=== PATIENT | female | born 1930 | race Caucasian/White ===

== ENCOUNTER 2016-09-13 11:12 | Inpatient (IN) | payer MEDICARE, OTHER ==
[~2016-09-13] VITALS: Ht 160 cm; Wt 55.9 kg
--- NOTE | 2016-09-13 11:19 | PHYS DOC ---
General Chief Complaint: medical clearance for [facility] Stated Complaint: [facility] EVAL Time Seen by MD: 11:15 Source: patient, prison records Exam Limitations: clinical condition Problems: History of Present Illness Initial Comments Patient is an 86-year-old female sent to the emergency department via EMS from [facility] for medical clearance and [facility] admission. [facility] records indicate the patient has been exit seeking, taking silverware, trying to break windows, attempting to strike staff, attempting to elope, and her anxiety symptoms have been increased. [facility] staff relays that the patient may have had a seizure earlier today, they say they witnessed tonic-clonic movements and patient does have seizure disorder history. Patient' s dementia symptoms have also worsened, prison records indicate these symptoms have been changing for the past 3 weeks. Seroquel and Ativan up and tried at the facility without relief. Patient is very confused in the department. She is disoriented and requires one- to-one care with repeated attempts to leave the department. Patient has a full DNR Timing/Duration: getting worse (3 weeks) Severity: severe Modifying Factors: improves with other Associated Symptoms: other Allergies: Coded Allergies: No Known Drug Allergies (Unverified , 09/13/16) Past Medical History Medical History: other (hypertension, allergies, insomnia, anxiety, dementia, seizure disorder, joint pain) Surgical History: noncontributory Social History Smoker: non-smoker Alcohol: none Drugs: none Review of Systems All Other Systems: Reviewed and Negative (patient is confused accurate review of systems is unobtainable.) Physical Exam General Appearance: mild distress (anxious and agitated) Eyes: bilateral eye normal inspection, bilateral eye PERRL, bilateral eye EOMI Ear, Nose, Throat: hearing grossly normal, normal ENT inspection Neck: non-tender, supple Respiratory: normal breath sounds, no respiratory distress Cardiovascular: normal peripheral pulses, regular rate, rhythm Gastrointestinal: non tender, soft Back: no CVA tenderness, no vertebral tenderness Extremities: non-tender, normal inspection 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 Interpreted by me. ED workup reassuring, lactic acid 5.0. Although elevated this value is expected immediately after seizure. Patient medically cleared for [facility] admission, Dr. Dixon is accepting. Departure Disposition: ADMITTED INPATIENT Diagnosis: dementia with behavior disorder, breakthrough seiz Condition: STABLE Additional Instructions: [facility] admission Dr Dixon is accepting DAMARIS UREÑA DO Sep 13, 2016 11:19
[2016-09-13 11:58] LABS: BASO % 0 % (0-3); EOS # 0.1 x10^3/uL (0.0-0.7); EOS % 2 % (0-3); HEMATOCRIT 33.8 % (36.0-47.0); HEMOGLOBIN 11.4 g/dL (12.0-15.5); LYMPH # 2.2 x10^3/uL (1.0-4.8); LYMPH % 37 % (24-48); MEAN CORPUSCULAR HEMOGLOBIN 31 pg (25-35); MEAN CORPUSCULAR HGB CONC 34 g/dL (31-37); MEAN CORPUSCULAR VOLUME 92 fL (79-100); MONO # 0.7 x10^3/uL (0.0-1.1); MONO % 11 % (0-9); NEUT # 2.9 x10^3uL (1.8-7.7); NEUT % 50 % (31-73); PLATELET COUNT 201 x10^3/uL (140-400); RED BLOOD COUNT 3.68 x10^6/uL (3.50-5.40); RED CELL DISTRIBUTION WIDTH 14.5 % (11.5-14.5); WHITE BLOOD COUNT 5.9 x10^3/uL (4.0-11.0)
[2016-09-13 12:09] LABS: ALBUMIN 3.5 g/dL (3.4-5.0); CALCIUM 8.7 mg/dL (8.5-10.1); GFR 52.7; MAGNESIUM 1.8 mg/dL (1.8-2.4); TOTAL BILIRUBIN 0.3 mg/dL (0.2-1.0)
[2016-09-13 12:17] LABS: PHENY 16.2 mcg/mL (10.0-20.0)
[2016-09-13 12:37] LABS: BACTERIA,URINE FEW /HPF (0-FEW); BILIRUBIN,URINE NEG (NEG); CLARITY,URINE CLOUDY; COLOR,URINE YELLOW; GLUCOSE,URINE NEG (NEG); NITRITE,URINE NEG (NEG); RBC,URINE 0 /HPF (0-2); SQUAMOUS EPITHELIAL CELL,UR FEW /LPF; UROBILINOGEN,URINE 0.2 mg/dL (0.2 mg/dL)
--- NOTE | 2016-09-13 12:49 | EKG ---
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
[2016-09-13 13:46] VITALS: BP 153/68
[2016-09-13] MEDS ORDERED: MAGNESIUM HYDROXIDE 2,400 MG/30 ML ORAL.SUSP. PO PRN (14:00)
[2016-09-13] MEDS ORDERED: MAG HYDROX/AL HYDROX/SIMETH 30 ML ORAL.SUSP PO PRN (14:00)
[2016-09-13] MEDS ORDERED: LORA0.5T PO (14:40)
[2016-09-13] MEDS ORDERED: METO25TA9 PO (14:40)
[2016-09-13] MEDS ORDERED: LORA10TA68 PO (14:40)
[2016-09-13] MEDS ORDERED: DICL100G18 TP (14:40)
[2016-09-13] MEDS ORDERED: ASPI-630 PO (14:40)
[2016-09-13] MEDS ORDERED: MELA3TAB45 PO (14:40)
[2016-09-13] MEDS ORDERED: PHEN100C PO (14:40)
[2016-09-13] MEDS ORDERED: [UNRECOGNIZED DRUG - CODE] PO (14:40)
[2016-09-13] MEDS ORDERED: LORA2ORA8 SL (14:43)
[2016-09-13] MEDS ORDERED: QUET25TA5 PO (14:43)
[2016-09-13 16:05] VITALS: BP 114/97
[2016-09-13] MEDS: LORazepam 0.5 MG TABLET PO SCH (20:04)
[2016-09-13] MEDS: LORazepam 0.5 MG TABLET PO PRN (20:06)
--- NOTE | 2016-09-13 20:10 | PDOC ---
Exam Dane Demential Exam: Dane Note: Please also refer to the separate dictated note~for this date of service dictated separately.~Patient seen individually. Discussed the patient with Nursing staff reviewed the chart.~Reviewed interim history and current functioning. Reviewed vital signs,~Labs/ Radiology~and current medications noted below. Continue current treatment with the changes noted in the dictated addendum note Assessment: Vital Signs: Vital Signs Date Time Temp Pulse Resp B/P (MAP) Pulse Ox O2 Delivery O2 Flow Rate FiO2 09/13/16 16:05 98.8 75 22 114/97 (103) 09/13/16 13:46 98 09/13/16 11:20 Room Air Labs: Laboratory Tests Test 09/13/16 11:35 09/13/16 12:10 White Blood Count 5.9 x10^3/uL (4.0-11.0) Red Blood Count 3.68 x10^6/uL (3.50-5.40) Hemoglobin 11.4 g/dL (12.0-15.5) L Hematocrit 33.8 % (36.0-47.0) L Mean Corpuscular Volume 92 fL (79-100) Mean Corpuscular Hemoglobin 31 pg (25-35) Mean Corpuscular Hemoglobin Concent 34 g/dL (31-37) Red Cell Distribution Width 14.5 % (11.5-14.5) Platelet Count 201 x10^3/uL (140-400) Neutrophils (%) (Auto) 50 % (31-73) Lymphocytes (%) (Auto) 37 % (24-48) Monocytes (%) (Auto) 11 % (0-9) H Eosinophils (%) (Auto) 2 % (0-3) Basophils (%) (Auto) 0 % (0-3) Neutrophils # (Auto) 2.9 x10^3uL (1.8-7.7) Lymphocytes # (Auto) 2.2 x10^3/uL (1.0-4.8) Monocytes # (Auto) 0.7 x10^3/uL (0.0-1.1) Eosinophils # (Auto) 0.1 x10^3/uL (0.0-0.7) Basophils # (Auto) 0.0 x10^3/uL (0.0-0.2) Sodium Level 144 mmol/L (136-145) Potassium Level 4.0 mmol/L (3.5-5.1) Chloride Level 107 mmol/L (98-107) Carbon Dioxide Level 27 mmol/L (21-32) Anion Gap 10 (6-14) Blood Urea Nitrogen 9 mg/dL (7-20) Creatinine 1.0 mg/dL (0.6-1.0) Estimated GFR (Cockcroft-Gault) 52.7 BUN/Creatinine Ratio 9 (6-20) Glucose Level 98 mg/dL (70-99) Lactic Acid Level 5.0 mmol/L (0.4-2.0) *H Calcium Level 8.7 mg/dL (8.5-10.1) Magnesium Level 1.8 mg/dL (1.8-2.4) Iron Level 95 ug/dL (50-170) Total Iron Binding Capacity 229 ug/dL (250-450) L Iron Saturation 41 % (15-34) H Total Bilirubin 0.3 mg/dL (0.2-1.0) Aspartate Amino Transferase (AST) 26 U/L (15-37) Alanine Aminotransferase (ALT) 28 U/L (14-59) Alkaline Phosphatase 142 U/L (46-116) H Creatine Kinase 122 U/L (26-192) Troponin I Quantitative < 0.017 ng/mL (0-0.055) Total Protein 7.0 g/dL (6.4-8.2) Albumin 3.5 g/dL (3.4-5.0) Albumin/Globulin Ratio 1.0 (1.0-1.7) Phenytoin (Dilantin) Level 16.2 mcg/mL (10.0-20.0) Phenytoin Last Dose Date 09/13/16 Phenytoin Last Dose Time 0700 Urine Collection Type Unknown Urine Color Yellow Urine Clarity Cloudy Urine pH 8.5 Urine Specific [place] 1.015 Urine Protein Neg (NEG-TRACE) Urine Glucose (UA) Neg mg/dL (NEG) Urine Ketones (Stick) Neg mg/dL (NEG) Urine Blood Neg (NEG) Urine Nitrite Neg (NEG) Urine Bilirubin Neg (NEG) Urine Urobilinogen Dipstick 0.2 mg/dL (0.2 mg/dL) Urine Leukocyte Esterase Mod (NEG) Urine RBC 0 /HPF (0-2) Urine WBC 1-4 /HPF (0-4) Urine Squamous Epithelial Cells Few /LPF Urine Bacteria Few /HPF (0-FEW) Current Medications: Meds: Current Medications Acetaminophen (Tylenol) 650 mg PRN Q6HRS PRN PO PAIN / TEMP; Start 09/13/16 at 13:00 Multi-Ingredient Ointment (Analgesic [place]) 1 beck PRN QID PRN TP MUSCLE PAIN; Start 09/13/16 at 14:00 Al Hydroxide/Mg Hydroxide (Mylanta Plus Xs) 15 ml PRN AFTMEALHC PRN PO DYSPEPSIA; Start 09/13/16 at 14:00 Magnesium Hydroxide (Milk Of Magnesia) 2,400 mg PRN QHS PRN PO CONSTIPATION; Start 09/13/16 at 14:00 Lorazepam (Ativan) 0.25 mg TID PO Last administered on 09/13/16 20:04; Start at 21:00 Lorazepam (Ativan) 0.5 mg PRN TID PRN PO ANXIETY / AGITATION Last administered on 09/13/16 20:06; Start 09/13/16 at 16:00 Phenytoin Sodium (Dilantin) 100 mg BID PO ; Start 09/13/16 at 21:00 Quetiapine Fumarate (SEROquel) 25 mg BID PO ; Start 09/13/16 at 21:00 Melatonin 3 mg HS PO ; Start 09/13/16 at 21:00 Aspirin (Children'S Aspirin) 81 mg DAILY PO ; Start 09/14/16 at 09:00 Diclofenac Sodium (Voltaren) 1 beck BID TP ; Start 09/13/16 at 21:00 Metoprolol Succinate (Toprol Xl) 25 mg BID PO ; Start 09/13/16 at 21:00 Glucosamine Sulfate (Glucosamine) 1,000 mg DAILY PO ; Start 09/14/16 at 09:00 Cetirizine HCl (ZyrTEC) 10 mg DAILY PO ; Start 09/14/16 at 09:00 Active Scripts Active Reported Seroquel (Quetiapine Fumarate) 25 Mg Tablet 25 Mg PO BID Lorazepam Intensol (Lorazepam) 2 Mg/1 Ml Oral.conc 0.25 Ml SL PRN TID PRN Voltaren (Diclofenac Sodium) 100 Gm Gel..gram. 1 Beck TP BID Lorazepam 0.5 Mg Tablet 0.25 Mg PO TID Melatin (Melatonin) 3 Mg Tablet 3 Mg PO QHS Metoprolol Succinate ( Xl ) (Metoprolol Succinate) 25 Mg Tab.er.24h 25 Mg PO BID Dilantin (Phenytoin Sodium Extended) 100 Mg Capsule 100 Mg PO BID Glucosamine Sulfate (Glucosamine Sulfate 2KCL) 1,000 Mg Tablet 1,000 Mg PO DAILY Aspirin 81 Mg Tab.chew 81 Mg PO DAILY Claritin (Loratadine) 10 Mg Tablet 10 Mg PO DAILY Diagnosis: Problems: (1) Dementia with behavioral disturbance (2) Anxiety disorder (3) Dementia in Alzheimer's disease with delusions (4) Dementia in Alzheimer's disease with depression (5) Dementia, vascular, with delusions (6) Dementia, vascular, with depression (7) Impulse control disorder NAKIA KO MD Sep 13, 2016 20:10
[2016-09-13] MEDS: PHENYTOIN SODIUM EXTENDED 100 MG CAPSULE PO SCH (21:14)
[2016-09-13] MEDS: QUEtiapine 25 MG TABLET. PO SCH (21:15)
[2016-09-13] MEDS: MELATONIN 3 MG TABLET PO SCH (21:15)
[2016-09-13] MEDS: METOPROLOL SUCC 24HR ER 25 MG TAB.ER.24H. PO SCH (21:15)
[2016-09-13] MEDS: DICLOFENAC SODIUM 1% TOPICAL GEL 100GM TUBE. TP SCH (21:16)
[2016-09-14 06:15] VITALS: BP 159/89
[2016-09-14] MEDS: GLUCOSAMINE 500 MG CAPSULE PO SCH (08:46)
[2016-09-14] MEDS: QUEtiapine 25 MG TABLET. PO SCH ×2 (08:46→20:02)
[2016-09-14] MEDS: ASPIRIN 81 MG TAB.CHEW PO SCH (08:46)
[2016-09-14] MEDS: PHENYTOIN SODIUM EXTENDED 100 MG CAPSULE PO SCH ×2 (08:46→20:02)
[2016-09-14] MEDS: LORazepam 0.5 MG TABLET PO SCH ×3 (08:46→20:03)
[2016-09-14] MEDS: CETIRIZINE HCL 10 MG TABLET PO SCH (08:47)
[2016-09-14] MEDS: METOPROLOL SUCC 24HR ER 25 MG TAB.ER.24H. PO SCH ×2 (08:47→20:02)
[2016-09-14] MEDS: DICLOFENAC SODIUM 1% TOPICAL GEL 100GM TUBE. TP SCH ×2 (08:48→20:02)
[2016-09-14] MEDS: LORazepam 0.5 MG TABLET PO PRN (10:54)
[2016-09-14 11:30] LABS: THYROID STIM HORMONE (TSH) 2.162 uIU/mL (0.358-3.740)
[2016-09-14 14:09] LABS: T3 TOTAL 93 ng/dL (71-180); THYROXINE 4.9 ug/dL (4.5-12.0)
--- NOTE | 2016-09-14 14:35 | PDOC1 ---
History of Present Illness Reason for Visit: Behaviors History of Present Illness Pt sent to [facility] for evaluation due to exit-seeking behaviors at [facility] in [place]. Pt reportedly has been grabbing silverware, attempting to break windows , swinging at staff, with increased anxiety and attempts to elope. She is a poor historian. When I interviewed her, she was trying to sell me a used chux pad for [place], so she could "break out of this place." She denies pain. 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 Allergies: Coded Allergies: No Known Drug Allergies (Unverified , 09/13/16) Medications Current Medications Acetaminophen (Tylenol) 650 mg PRN Q6HRS PRN PO PAIN / TEMP; Start 09/13/16 at 13:00 Multi-Ingredient Ointment (Analgesic [place]) 1 beck PRN QID PRN TP MUSCLE PAIN; Start 09/13/16 at 14:00 Al Hydroxide/Mg Hydroxide (Mylanta Plus Xs) 15 ml PRN AFTMEALHC PRN PO DYSPEPSIA; Start 09/13/16 at 14:00 Magnesium Hydroxide (Milk Of Magnesia) 2,400 mg PRN QHS PRN PO CONSTIPATION; Start 09/13/16 at 14:00 Lorazepam (Ativan) 0.25 mg TID PO Last administered on 09/14/16 14:03; Start at 21:00 Lorazepam (Ativan) 0.5 mg PRN TID PRN PO ANXIETY / AGITATION Last administered on 09/14/16 10:54; Start 09/13/16 at 16:00 Phenytoin Sodium (Dilantin) 100 mg BID PO Last administered on 09/14/16 08:46; Start 09/13/16 at 21:00 Quetiapine Fumarate (SEROquel) 25 mg BID PO Last administered on 09/14/16 08:46 ; Start 09/13/16 at 21:00 Melatonin 3 mg HS PO Last administered on 09/13/16 21:15; Start 09/13/16 at 21: 00 Aspirin (Children'S Aspirin) 81 mg DAILY PO Last administered on 09/14/16 08:46 ; Start 09/14/16 at 09:00 Diclofenac Sodium (Voltaren) 1 beck BID TP Last administered on 09/14/16 08:48; Start 09/13/16 at 21:00 Metoprolol Succinate (Toprol Xl) 25 mg BID PO Last administered on 09/14/16 08: 47; Start 09/13/16 at 21:00 Glucosamine Sulfate (Glucosamine) 1,000 mg DAILY PO Last administered on 08:46; Start 09/14/16 at 09:00 Cetirizine HCl (ZyrTEC) 10 mg DAILY PO Last administered on 09/14/16 08:47; Start 09/14/16 at 09:00 Olanzapine (ZyPREXA ZYDIS) 2.5 mg PRN Q4HRS PRN PO PSYCHOSIS Last administered on 09/14/16 14:15; Start 09/14/16 at 14:15 Active Scripts Active Reported Seroquel (Quetiapine Fumarate) 25 Mg Tablet 25 Mg PO BID Lorazepam Intensol (Lorazepam) 2 Mg/1 Ml Oral.conc 0.25 Ml SL PRN TID PRN Voltaren (Diclofenac Sodium) 100 Gm Gel..gram. 1 Beck TP BID Lorazepam 0.5 Mg Tablet 0.25 Mg PO TID Melatin (Melatonin) 3 Mg Tablet 3 Mg PO QHS Metoprolol Succinate ( Xl ) (Metoprolol Succinate) 25 Mg Tab.er.24h 25 Mg PO BID Dilantin (Phenytoin Sodium Extended) 100 Mg Capsule 100 Mg PO BID Glucosamine Sulfate (Glucosamine Sulfate 2KCL) 1,000 Mg Tablet 1,000 Mg PO DAILY Aspirin 81 Mg Tab.chew 81 Mg PO DAILY Claritin (Loratadine) 10 Mg Tablet 10 Mg PO DAILY Exam Vital Signs Vital Signs Date Time Temp Pulse Resp B/P (MAP) Pulse Ox O2 Delivery O2 Flow Rate FiO2 09/14/16 08:47 65 159/89 09/14/16 06:15 97.5 16 97 Room Air General Appearance: Alert, Cooperative, No acute distress HEENT: Atraumatic, PERRLA, EOMI, Mucous membr. moist/pink, Other (Neck supple, full ROM, no JVD) Respiratory: Clear to auscultation, Normal air movement Heart: Regular rate, Normal S1, Normal S2, No murmurs Cardiac: HTN Abdominal: Soft, No tenderness, No hepatospenomegaly Extremities: No edema, Normal pulses Skin: No rashes Neuro: Normal gait, Strength at 5/5 X4 ext, Normal tone, Cranial nerves 3-12 NL Psych/Mental Status: Other (Mental status stable) Assessment/Plan Assessment/Plan 1. Dementia w/ behaviors: Per Dr. Garcia. 2. Seizure d/o: Pt possibly w/ seizure yesterday lactate normal now. Monitor for seizures, consult neurology. Request records. 3. HTN: Continue home meds. 4. DVT proph: Pt completely ambulatory. No indication for anticoagulation. COURSE Allergies Coded Allergies Type Severity Reaction Last Updated Verified No Known Drug Allergies 09/13/16 No Current Medications Medications (Trade) Dose Ordered Sig/Antonina Route PRN Reason Start Time Stop Time Status Last Admin Dose Admin Lorazepam (Ativan) 0.25 mg TID PO 09/13/16 21:00 09/14/16 14:03 Lorazepam (Ativan) 0.5 mg PRN TID PRN PO ANXIETY / AGITATION 09/13/16 16:00 09/14/16 10:54 Phenytoin Sodium (Dilantin) 100 mg BID PO 09/13/16 21:00 09/14/16 08:46 Quetiapine Fumarate (SEROquel) 25 mg BID PO 09/13/16 21:00 09/14/16 08:46 Melatonin 3 mg HS PO 09/13/16 21:00 09/13/16 21:15 Aspirin (Children'S Aspirin) 81 mg DAILY PO 09/14/16 09:00 09/14/16 08:46 Diclofenac Sodium (Voltaren) 1 beck BID TP 09/13/16 21:00 09/14/16 08:48 Metoprolol Succinate (Toprol Xl) 25 mg BID PO 09/13/16 21:00 09/14/16 08:47 Glucosamine Sulfate (Glucosamine) 1,000 mg DAILY PO 09/14/16 09:00 09/14/16 08:46 Cetirizine HCl (ZyrTEC) 10 mg DAILY PO 09/14/16 09:00 09/14/16 08:47 Olanzapine (ZyPREXA ZYDIS) 2.5 mg PRN Q4HRS PRN PO PSYCHOSIS 09/14/16 14:15 09/14/16 14:15 I & O 09/14/16 00:00 Intake Total 120 ml Balance 120 ml Orders Procedure Category Date Status Time Lorazepam (Ativan) PHA 09/13/16 In Process 21:00 Phenytoin Sodium PHA 09/13/16 In Process Extended (Dilantin) 21:00 Quetiapine (Seroquel) PHA 09/13/16 In Process 21:00 Melatonin PHA 09/13/16 In Process 21:00 Lorazepam (Ativan) PHA 09/13/16 In Process 16:00 Aspirin (Children's PHA 09/14/16 In Process Aspirin) 09:00 Diclofenac Sodium 1% PHA 09/13/16 In Process Topical (Voltaren) 21:00 Metoprolol Succ 24hr PHA 09/13/16 In Process Er (Toprol Xl) 21:00 Glucosamine PHA 09/14/16 In Process (Glucosamine) 09:00 Cetirizine Hcl PHA 09/14/16 In Process (Zyrtec) 09:00 Olanzapine Zydis PHA 09/14/16 In Process (Zyprexa Zydis) 14:15 Vital Signs Date Time Temp Pulse Resp B/P (MAP) Pulse Ox O2 Delivery O2 Flow Rate FiO2 09/14/16 08:47 65 159/89 09/14/16 06:15 97.5 16 97 Room Air JACOB COKER MD Sep 14, 2016 14:35
[2016-09-14 15:56] VITALS: BP 163/94
[2016-09-14] MEDS: MELATONIN 3 MG TABLET PO SCH (20:02)
--- NOTE | 2016-09-14 23:23 | PDOC ---
Exam Dane Demential Exam: Dane Note: Please also refer to the separate dictated note~for this date of service dictated separately.~Patient seen individually. Discussed the patient with Nursing staff reviewed the chart.~Reviewed interim history and current functioning. Reviewed vital signs,~Labs/ Radiology~and current medications noted below. Continue current treatment with the changes noted in the dictated addendum note Assessment: Vital Signs: Vital Signs Date Time Temp Pulse Resp B/P (MAP) Pulse Ox O2 Delivery O2 Flow Rate FiO2 09/14/16 20:02 73 163/94 09/14/16 15:56 97.9 18 97 Room Air I&O Intake and Output 09/14/16 07:00 Intake Total 120 ml Balance 120 ml Intake Oral 120 ml Labs: Laboratory Tests Test 09/14/16 14:45 Lactic Acid Level 1.5 mmol/L (0.4-2.0) Current Medications: Meds: Current Medications Acetaminophen (Tylenol) 650 mg PRN Q6HRS PRN PO PAIN / TEMP; Start 09/13/16 at 13:00 Multi-Ingredient Ointment (Analgesic [place]) 1 beck PRN QID PRN TP MUSCLE PAIN; Start 09/13/16 at 14:00 Al Hydroxide/Mg Hydroxide (Mylanta Plus Xs) 15 ml PRN AFTMEALHC PRN PO DYSPEPSIA; Start 09/13/16 at 14:00 Magnesium Hydroxide (Milk Of Magnesia) 2,400 mg PRN QHS PRN PO CONSTIPATION; Start 09/13/16 at 14:00 Lorazepam (Ativan) 0.25 mg TID PO Last administered on 09/14/16 20:03; Start at 21:00 Lorazepam (Ativan) 0.5 mg PRN TID PRN PO ANXIETY / AGITATION Last administered on 09/14/16 10:54; Start 09/13/16 at 16:00 Phenytoin Sodium (Dilantin) 100 mg BID PO Last administered on 09/14/16 20:02; Start 09/13/16 at 21:00 Quetiapine Fumarate (SEROquel) 25 mg BID PO Last administered on 09/14/16 20:02 ; Start 09/13/16 at 21:00 Melatonin 3 mg HS PO Last administered on 09/14/16 20:02; Start 09/13/16 at 21: 00 Aspirin (Children'S Aspirin) 81 mg DAILY PO Last administered on 09/14/16 08:46 ; Start 09/14/16 at 09:00 Diclofenac Sodium (Voltaren) 1 beck BID TP Last administered on 09/14/16 20:02; Start 09/13/16 at 21:00 Metoprolol Succinate (Toprol Xl) 25 mg BID PO Last administered on 09/14/16 20: 02; Start 09/13/16 at 21:00 Glucosamine Sulfate (Glucosamine) 1,000 mg DAILY PO Last administered on 08:46; Start 09/14/16 at 09:00 Cetirizine HCl (ZyrTEC) 10 mg DAILY PO Last administered on 09/14/16 08:47; Start 09/14/16 at 09:00 Olanzapine (ZyPREXA ZYDIS) 2.5 mg PRN Q4HRS PRN PO PSYCHOSIS Last administered on 09/14/16 14:15; Start 09/14/16 at 14:15 Divalproex Sodium (Depakote Sprinkles) 250 mg HS PO ; Start 09/15/16 at 21:00 Divalproex Sodium (Depakote Sprinkles) 125 mg BID92 PO ; Start 09/15/16 at 09:00 Active Scripts Active Reported Seroquel (Quetiapine Fumarate) 25 Mg Tablet 25 Mg PO BID Lorazepam Intensol (Lorazepam) 2 Mg/1 Ml Oral.conc 0.25 Ml SL PRN TID PRN Voltaren (Diclofenac Sodium) 100 Gm Gel..gram. 1 Beck TP BID Lorazepam 0.5 Mg Tablet 0.25 Mg PO TID Melatin (Melatonin) 3 Mg Tablet 3 Mg PO QHS Metoprolol Succinate ( Xl ) (Metoprolol Succinate) 25 Mg Tab.er.24h 25 Mg PO BID Dilantin (Phenytoin Sodium Extended) 100 Mg Capsule 100 Mg PO BID Glucosamine Sulfate (Glucosamine Sulfate 2KCL) 1,000 Mg Tablet 1,000 Mg PO DAILY Aspirin 81 Mg Tab.chew 81 Mg PO DAILY Claritin (Loratadine) 10 Mg Tablet 10 Mg PO DAILY Diagnosis: Problems: (1) Dementia with behavioral disturbance (2) Anxiety disorder (3) Dementia in Alzheimer's disease with delusions (4) Dementia in Alzheimer's disease with depression (5) Dementia, vascular, with delusions (6) Dementia, vascular, with depression (7) Impulse control disorder NAKIA KO MD Sep 14, 2016 23:23
[2016-09-15 00:09] LABS: HEMOGLOBIN A1C 4.7 % (4.8-5.6)
[2016-09-15 06:28] VITALS: BP 152/74
[2016-09-15] MEDS: PHENYTOIN SODIUM EXTENDED 100 MG CAPSULE PO SCH ×2 (08:00→19:44)
[2016-09-15] MEDS: ASPIRIN 81 MG TAB.CHEW PO SCH (08:01)
[2016-09-15] MEDS: CETIRIZINE HCL 10 MG TABLET PO SCH (08:01)
[2016-09-15] MEDS: GLUCOSAMINE 500 MG CAPSULE PO SCH (08:01)
[2016-09-15] MEDS: METOPROLOL SUCC 24HR ER 25 MG TAB.ER.24H. PO SCH ×2 (08:02→19:44)
[2016-09-15] MEDS: QUEtiapine 25 MG TABLET. PO SCH ×2 (08:03→19:44)
[2016-09-15] MEDS: DIVALPROEX 125 MG CAP.SPRINK PO SCH ×3 (08:04→19:46)
[2016-09-15] MEDS: LORazepam 0.5 MG TABLET PO SCH ×3 (08:05→19:47)
[2016-09-15] MEDS: DICLOFENAC SODIUM 1% TOPICAL GEL 100GM TUBE. TP SCH ×2 (09:05→21:40)
[2016-09-15] MEDS: LORazepam 0.5 MG TABLET PO PRN (13:26)
[2016-09-15 16:48] VITALS: BP 136/74
[2016-09-15] MEDS: MELATONIN 3 MG TABLET PO SCH (19:44)
--- NOTE | 2016-09-15 20:19 | PDOC ---
Exam Dane Demential Exam: Dane Note: Please also refer to the separate dictated note~for this date of service dictated separately.~Patient seen individually. Discussed the patient with Nursing staff reviewed the chart.~Reviewed interim history and current functioning. Reviewed vital signs,~Labs/ Radiology~and current medications noted below. Continue current treatment with the changes noted in the dictated addendum note Assessment: Vital Signs: Vital Signs Date Time Temp Pulse Resp B/P (MAP) Pulse Ox O2 Delivery O2 Flow Rate FiO2 09/15/16 19:44 67 136/74 09/15/16 16:48 98.6 20 99 09/14/16 15:56 Room Air I&O Intake and Output 09/15/16 07:00 Intake Total 660 ml Balance 660 ml Intake Oral 660 ml Current Medications: Meds: Current Medications Acetaminophen (Tylenol) 650 mg PRN Q6HRS PRN PO PAIN / TEMP; Start 09/13/16 at 13:00 Multi-Ingredient Ointment (Analgesic [place]) 1 beck PRN QID PRN TP MUSCLE PAIN; Start 09/13/16 at 14:00 Al Hydroxide/Mg Hydroxide (Mylanta Plus Xs) 15 ml PRN AFTMEALHC PRN PO DYSPEPSIA; Start 09/13/16 at 14:00 Magnesium Hydroxide (Milk Of Magnesia) 2,400 mg PRN QHS PRN PO CONSTIPATION; Start 09/13/16 at 14:00 Lorazepam (Ativan) 0.25 mg TID PO Last administered on 09/15/16 19:47; Start at 21:00 Lorazepam (Ativan) 0.5 mg PRN TID PRN PO ANXIETY / AGITATION Last administered on 09/15/16 13:26; Start 09/13/16 at 16:00 Phenytoin Sodium (Dilantin) 100 mg BID PO Last administered on 09/15/16 19:44; Start 09/13/16 at 21:00 Quetiapine Fumarate (SEROquel) 25 mg BID PO Last administered on 09/15/16 19:44 ; Start 09/13/16 at 21:00 Melatonin 3 mg HS PO Last administered on 09/15/16 19:44; Start 09/13/16 at 21: 00 Aspirin (Children'S Aspirin) 81 mg DAILY PO Last administered on 09/15/16 08:01 ; Start 09/14/16 at 09:00 Diclofenac Sodium (Voltaren) 1 beck BID TP Last administered on 09/15/16 09:05; Start 09/13/16 at 21:00 Metoprolol Succinate (Toprol Xl) 25 mg BID PO Last administered on 09/15/16 19: 44; Start 09/13/16 at 21:00 Glucosamine Sulfate (Glucosamine) 1,000 mg DAILY PO Last administered on 08:01; Start 09/14/16 at 09:00 Cetirizine HCl (ZyrTEC) 10 mg DAILY PO Last administered on 09/15/16 08:01; Start 09/14/16 at 09:00 Olanzapine (ZyPREXA ZYDIS) 2.5 mg PRN Q4HRS PRN PO PSYCHOSIS Last administered on 09/15/16 12:01; Start 09/14/16 at 14:15 Divalproex Sodium (Depakote Sprinkles) 250 mg HS PO Last administered on 19:46; Start 09/15/16 at 21:00 Divalproex Sodium (Depakote Sprinkles) 125 mg BID92 PO Last administered on 09/15 14:00; Start 09/15/16 at 09:00 Active Scripts Active Reported Seroquel (Quetiapine Fumarate) 25 Mg Tablet 25 Mg PO BID Lorazepam Intensol (Lorazepam) 2 Mg/1 Ml Oral.conc 0.25 Ml SL PRN TID PRN Voltaren (Diclofenac Sodium) 100 Gm Gel..gram. 1 Beck TP BID Lorazepam 0.5 Mg Tablet 0.25 Mg PO TID Melatin (Melatonin) 3 Mg Tablet 3 Mg PO QHS Metoprolol Succinate ( Xl ) (Metoprolol Succinate) 25 Mg Tab.er.24h 25 Mg PO BID Dilantin (Phenytoin Sodium Extended) 100 Mg Capsule 100 Mg PO BID Glucosamine Sulfate (Glucosamine Sulfate 2KCL) 1,000 Mg Tablet 1,000 Mg PO DAILY Aspirin 81 Mg Tab.chew 81 Mg PO DAILY Claritin (Loratadine) 10 Mg Tablet 10 Mg PO DAILY Diagnosis: Problems: (1) Dementia with behavioral disturbance (2) Anxiety disorder (3) Dementia in Alzheimer's disease with delusions (4) Dementia in Alzheimer's disease with depression (5) Dementia, vascular, with delusions (6) Dementia, vascular, with depression (7) Impulse control disorder NAKIA KO MD Sep 15, 2016 20:19
[2016-09-16 05:57] VITALS: BP 148/72
[2016-09-16] MEDS: PHENYTOIN SODIUM EXTENDED 100 MG CAPSULE PO SCH ×2 (08:59→19:37)
[2016-09-16] MEDS: GLUCOSAMINE 500 MG CAPSULE PO SCH (08:59)
[2016-09-16] MEDS: ASPIRIN 81 MG TAB.CHEW PO SCH (09:00)
[2016-09-16] MEDS: DIVALPROEX 125 MG CAP.SPRINK PO SCH ×3 (09:00→19:36)
[2016-09-16] MEDS: CETIRIZINE HCL 10 MG TABLET PO SCH (09:00)
[2016-09-16] MEDS: METOPROLOL SUCC 24HR ER 25 MG TAB.ER.24H. PO SCH ×2 (09:00→19:36)
[2016-09-16] MEDS: QUEtiapine 25 MG TABLET. PO SCH (09:00)
[2016-09-16] MEDS: LORazepam 0.5 MG TABLET PO SCH ×3 (09:01→19:47)
[2016-09-16] MEDS: DICLOFENAC SODIUM 1% TOPICAL GEL 100GM TUBE. TP SCH ×2 (09:02→19:37)
[2016-09-16] MEDS: CHOLECALCIFEROL (VITAMIN D3) 50,000 UNIT CAPSULE PO SCH (13:26)
[2016-09-16 15:39] VITALS: BP 111/73
[2016-09-16] MEDS: MELATONIN 3 MG TABLET PO SCH (19:34)
--- NOTE | 2016-09-16 20:24 | PDOC ---
Exam Dane Demential Exam: Dane Note: Please also refer to the separate dictated note~for this date of service dictated separately.~Patient seen individually. Discussed the patient with Nursing staff reviewed the chart.~Reviewed interim history and current functioning. Reviewed vital signs,~Labs/ Radiology~and current medications noted below. Continue current treatment with the changes noted in the dictated addendum note Assessment: Vital Signs: Vital Signs Date Time Temp Pulse Resp B/P (MAP) Pulse Ox O2 Delivery O2 Flow Rate FiO2 09/16/16 19:36 78 111/73 09/16/16 15:39 97.8 20 98 09/14/16 15:56 Room Air I&O Intake and Output 09/16/16 07:00 Intake Total 720 ml Balance 720 ml Intake Oral 720 ml Current Medications: Meds: Current Medications Acetaminophen (Tylenol) 650 mg PRN Q6HRS PRN PO PAIN / TEMP; Start 09/13/16 at 13:00 Multi-Ingredient Ointment (Analgesic [place]) 1 beck PRN QID PRN TP MUSCLE PAIN; Start 09/13/16 at 14:00 Al Hydroxide/Mg Hydroxide (Mylanta Plus Xs) 15 ml PRN AFTMEALHC PRN PO DYSPEPSIA; Start 09/13/16 at 14:00 Magnesium Hydroxide (Milk Of Magnesia) 2,400 mg PRN QHS PRN PO CONSTIPATION; Start 09/13/16 at 14:00 Lorazepam (Ativan) 0.25 mg TID PO Last administered on 09/16/16 19:47; Start 09/13/16 at 21:00 Lorazepam (Ativan) 0.5 mg PRN TID PRN PO ANXIETY / AGITATION Last administered on 09/15/16 13:26; Start 09/13/16 at 16:00 Phenytoin Sodium (Dilantin) 100 mg BID PO Last administered on 09/16/16 19:37 ; Start 09/13/16 at 21:00 Quetiapine Fumarate (SEROquel) 25 mg BID PO Last administered on 09/16/16 09: 00; Start 09/13/16 at 21:00; Stop 09/16/16 at 18:14; Status DC Melatonin 3 mg HS PO Last administered on 09/16/16 19:34; Start 09/13/16 at 21: 00 Aspirin (Children'S Aspirin) 81 mg DAILY PO Last administered on 09/16/16 09: 00; Start 09/14/16 at 09:00 Diclofenac Sodium (Voltaren) 1 beck BID TP Last administered on 09/16/16 19:37 ; Start 09/13/16 at 21:00 Metoprolol Succinate (Toprol Xl) 25 mg BID PO Last administered on 09/16/16 19 :36; Start 09/13/16 at 21:00 Glucosamine Sulfate (Glucosamine) 1,000 mg DAILY PO Last administered on 08:59; Start 09/14/16 at 09:00 Cetirizine HCl (ZyrTEC) 10 mg DAILY PO Last administered on 09/16/16 09:00; Start 09/14/16 at 09:00 Olanzapine (ZyPREXA ZYDIS) 2.5 mg PRN Q4HRS PRN PO PSYCHOSIS Last administered on 09/16/16 19:39; Start 09/14/16 at 14:15 Divalproex Sodium (Depakote Sprinkles) 250 mg HS PO Last administered on 19:36; Start 09/15/16 at 21:00 Divalproex Sodium (Depakote Sprinkles) 125 mg BID92 PO Last administered on 13:28; Start 09/15/16 at 09:00 Vitamin D (Vitamin D3) 50,000 unit WEEKLY PO Last administered on 09/16/16 13: 26; Start 09/16/16 at 11:30 Quetiapine Fumarate (SEROquel) 25 mg BIDACBL PO Last administered on 09/16/16 19:38; Start 09/17/16 at 07:30 Quetiapine Fumarate (SEROquel) 12.5 mg NOON PO ; Start 09/17/16 at 12:00 Sertraline HCl (Zoloft) 25 mg DAILY PO ; Start 09/17/16 at 09:00; Stop 09/19/16 at 08:59 Sertraline HCl (Zoloft) 50 mg DAILY PO ; Start 09/19/16 at 09:00 Active Scripts Active Reported Seroquel (Quetiapine Fumarate) 25 Mg Tablet 25 Mg PO BID Lorazepam Intensol (Lorazepam) 2 Mg/1 Ml Oral.conc 0.25 Ml SL PRN TID PRN Voltaren (Diclofenac Sodium) 100 Gm Gel..gram. 1 Beck TP BID Lorazepam 0.5 Mg Tablet 0.25 Mg PO TID Melatin (Melatonin) 3 Mg Tablet 3 Mg PO QHS Metoprolol Succinate ( Xl ) (Metoprolol Succinate) 25 Mg Tab.er.24h 25 Mg PO BID Dilantin (Phenytoin Sodium Extended) 100 Mg Capsule 100 Mg PO BID Glucosamine Sulfate (Glucosamine Sulfate 2KCL) 1,000 Mg Tablet 1,000 Mg PO DAILY Aspirin 81 Mg Tab.chew 81 Mg PO DAILY Claritin (Loratadine) 10 Mg Tablet 10 Mg PO DAILY Diagnosis: Problems: (1) Dementia with behavioral disturbance (2) Anxiety disorder (3) Dementia in Alzheimer's disease with delusions (4) Dementia in Alzheimer's disease with depression (5) Dementia, vascular, with delusions (6) Dementia, vascular, with depression (7) Impulse control disorder NAKIA KO MD Sep 16, 2016 20:24
[2016-09-17 06:09] VITALS: BP 140/63
[2016-09-17] MEDS ORDERED: QUEtiapine 25 MG TABLET. PO SCH (07:30)
[2016-09-17] MEDS: METOPROLOL SUCC 24HR ER 25 MG TAB.ER.24H. PO SCH ×2 (08:09→19:36)
[2016-09-17] MEDS: SERTRALINE 25 MG TABLET. PO SCH (08:10)
[2016-09-17] MEDS: GLUCOSAMINE 500 MG CAPSULE PO SCH (08:10)
[2016-09-17] MEDS: QUEtiapine 25 MG TABLET. PO SCH ×3 (08:10→16:15)
[2016-09-17] MEDS: CETIRIZINE HCL 10 MG TABLET PO SCH (08:10)
[2016-09-17] MEDS: PHENYTOIN SODIUM EXTENDED 100 MG CAPSULE PO SCH ×2 (08:10→19:36)
[2016-09-17] MEDS: ASPIRIN 81 MG TAB.CHEW PO SCH (08:10)
[2016-09-17] MEDS: DIVALPROEX 125 MG CAP.SPRINK PO SCH ×3 (08:10→19:36)
[2016-09-17 08:11] LABS: ALBUMIN 3.6 g/dL (3.4-5.0); ALK PHOS 141 U/L (46-116); ALT (SGPT) 24 U/L (14-59); ANION GAP 8 (6-14); AST (SGOT) 21 U/L (15-37); BLOOD UREA NITROGEN 16 mg/dL (7-20); BUN/CREATININE RATIO 20 (6-20); CALCIUM 8.8 mg/dL (8.5-10.1); CARBON DIOXIDE 29 mmol/L (21-32); CHLORIDE 106 mmol/L (98-107); CREATININE 0.8 mg/dL (0.6-1.0); GFR 68.2; GLUCOSE 95 mg/dL (70-99); HEMATOCRIT 37.6 % (36.0-47.0); HEMOGLOBIN 12.4 g/dL (12.0-15.5); POTASSIUM 3.6 mmol/L (3.5-5.1); RED BLOOD COUNT 3.99 x10^6/uL (3.50-5.40); RED CELL DISTRIBUTION WIDTH 15.2 % (11.5-14.5); SODIUM 143 mmol/L (136-145); TOTAL BILIRUBIN 0.4 mg/dL (0.2-1.0); TOTAL PROTEIN 7.1 g/dL (6.4-8.2); WHITE BLOOD COUNT 5.4 x10^3/uL (4.0-11.0)
[2016-09-17] MEDS: LORazepam 0.5 MG TABLET PO SCH ×3 (08:11→19:35)
[2016-09-17 08:17] LABS: VAL ACID 27 mcg/mL (50-100)
[2016-09-17] MEDS: DICLOFENAC SODIUM 1% TOPICAL GEL 100GM TUBE. TP SCH ×2 (09:00→19:37)
[2016-09-17 16:02] VITALS: BP 116/79
[2016-09-17] MEDS: MELATONIN 3 MG TABLET PO SCH (19:38)
--- NOTE | 2016-09-17 20:17 | PDOC ---
Exam Dane Demential Exam: Dane Note: Please also refer to the separate dictated note~for this date of service dictated separately.~Patient seen individually. Discussed the patient with Nursing staff reviewed the chart.~Reviewed interim history and current functioning. Reviewed vital signs,~Labs/ Radiology~and current medications noted below. Continue current treatment with the changes noted in the dictated addendum note Assessment: Vital Signs: Vital Signs Date Time Temp Pulse Resp B/P (MAP) Pulse Ox O2 Delivery O2 Flow Rate FiO2 09/17/16 19:36 76 116/79 09/17/16 16:02 98.7 20 Room Air 09/17/16 06:09 96 I&O Intake and Output 09/17/16 07:00 Intake Total 780 ml Balance 780 ml Intake Oral 780 ml Labs: Laboratory Tests Test 09/17/16 07:43 White Blood Count 5.4 x10^3/uL (4.0-11.0) Red Blood Count 3.99 x10^6/uL (3.50-5.40) Hemoglobin 12.4 g/dL (12.0-15.5) Hematocrit 37.6 % (36.0-47.0) Mean Corpuscular Volume 94 fL (79-100) Mean Corpuscular Hemoglobin 31 pg (25-35) Mean Corpuscular Hemoglobin Concent 33 g/dL (31-37) Red Cell Distribution Width 15.2 % (11.5-14.5) H Platelet Count 225 x10^3/uL (140-400) Sodium Level 143 mmol/L (136-145) Potassium Level 3.6 mmol/L (3.5-5.1) Chloride Level 106 mmol/L (98-107) Carbon Dioxide Level 29 mmol/L (21-32) Anion Gap 8 (6-14) Blood Urea Nitrogen 16 mg/dL (7-20) Creatinine 0.8 mg/dL (0.6-1.0) Estimated GFR (Cockcroft-Gault) 68.2 BUN/Creatinine Ratio 20 (6-20) Glucose Level 95 mg/dL (70-99) Calcium Level 8.8 mg/dL (8.5-10.1) Total Bilirubin 0.4 mg/dL (0.2-1.0) Aspartate Amino Transferase (AST) 21 U/L (15-37) Alanine Aminotransferase (ALT) 24 U/L (14-59) Alkaline Phosphatase 141 U/L (46-116) H Total Protein 7.1 g/dL (6.4-8.2) Albumin 3.6 g/dL (3.4-5.0) Albumin/Globulin Ratio 1.0 (1.0-1.7) Valproic Acid Level 27 mcg/mL (50-100) L Valproic Acid Last Dose Date 09/16/2016 Valproic Acid Last Dose Time 2100 Current Medications: Meds: Current Medications Acetaminophen (Tylenol) 650 mg PRN Q6HRS PRN PO PAIN / TEMP; Start 09/13/16 at 13:00 Multi-Ingredient Ointment (Analgesic [place]) 1 beck PRN QID PRN TP MUSCLE PAIN; Start 09/13/16 at 14:00 Al Hydroxide/Mg Hydroxide (Mylanta Plus Xs) 15 ml PRN AFTMEALHC PRN PO DYSPEPSIA; Start 09/13/16 at 14:00 Magnesium Hydroxide (Milk Of Magnesia) 2,400 mg PRN QHS PRN PO CONSTIPATION; Start 09/13/16 at 14:00 Lorazepam (Ativan) 0.25 mg TID PO Last administered on 09/17/16 19:35; Start 09/13/16 at 21:00 Lorazepam (Ativan) 0.5 mg PRN TID PRN PO ANXIETY / AGITATION Last administered on 09/15/16 13:26; Start 09/13/16 at 16:00 Phenytoin Sodium (Dilantin) 100 mg BID PO Last administered on 09/17/16 19:36 ; Start 09/13/16 at 21:00 Quetiapine Fumarate (SEROquel) 25 mg BID PO Last administered on 09/16/16 09: 00; Start 09/13/16 at 21:00; Stop 09/16/16 at 18:14; Status DC Melatonin 3 mg HS PO Last administered on 09/17/16 19:38; Start 09/13/16 at 21: 00 Aspirin (Children'S Aspirin) 81 mg DAILY PO Last administered on 09/17/16 08: 10; Start 09/14/16 at 09:00 Diclofenac Sodium (Voltaren) 1 beck BID TP Last administered on 09/17/16 19:37 ; Start 09/13/16 at 21:00 Metoprolol Succinate (Toprol Xl) 25 mg BID PO Last administered on 09/17/16 19 :36; Start 09/13/16 at 21:00 Glucosamine Sulfate (Glucosamine) 1,000 mg DAILY PO Last administered on 08:10; Start 09/14/16 at 09:00 Cetirizine HCl (ZyrTEC) 10 mg DAILY PO Last administered on 09/17/16 08:10; Start 09/14/16 at 09:00 Olanzapine (ZyPREXA ZYDIS) 2.5 mg PRN Q4HRS PRN PO PSYCHOSIS Last administered on 09/17/16 17:51; Start 09/14/16 at 14:15 Divalproex Sodium (Depakote Sprinkles) 250 mg HS PO Last administered on 19:36; Start 09/15/16 at 21:00 Divalproex Sodium (Depakote Sprinkles) 125 mg BID92 PO Last administered on 14:13; Start 09/15/16 at 09:00 Vitamin D (Vitamin D3) 50,000 unit WEEKLY PO Last administered on 09/16/16 13: 26; Start 09/16/16 at 11:30 Quetiapine Fumarate (SEROquel) 25 mg BIDACBL PO ; Start 09/17/16 at 07:30; Stop 09/17/16 at 07:30; Status DC Quetiapine Fumarate (SEROquel) 12.5 mg NOON PO Last administered on 09/17/16 11:41; Start 09/17/16 at 12:00 Sertraline HCl (Zoloft) 25 mg DAILY PO Last administered on 09/17/16 08:10; Start 09/17/16 at 09:00; Stop 09/19/16 at 08:59 Sertraline HCl (Zoloft) 50 mg DAILY PO ; Start 09/19/16 at 09:00 Quetiapine Fumarate (SEROquel) 25 mg BID94 PO Last administered on 09/17/16 16 :15; Start 09/17/16 at 09:00 Active Scripts Active Reported Seroquel (Quetiapine Fumarate) 25 Mg Tablet 25 Mg PO BID Lorazepam Intensol (Lorazepam) 2 Mg/1 Ml Oral.conc 0.25 Ml SL PRN TID PRN Voltaren (Diclofenac Sodium) 100 Gm Gel..gram. 1 Beck TP BID Lorazepam 0.5 Mg Tablet 0.25 Mg PO TID Melatin (Melatonin) 3 Mg Tablet 3 Mg PO QHS Metoprolol Succinate ( Xl ) (Metoprolol Succinate) 25 Mg Tab.er.24h 25 Mg PO BID Dilantin (Phenytoin Sodium Extended) 100 Mg Capsule 100 Mg PO BID Glucosamine Sulfate (Glucosamine Sulfate 2KCL) 1,000 Mg Tablet 1,000 Mg PO DAILY Aspirin 81 Mg Tab.chew 81 Mg PO DAILY Claritin (Loratadine) 10 Mg Tablet 10 Mg PO DAILY Diagnosis: Problems: (1) Dementia with behavioral disturbance (2) Anxiety disorder (3) Dementia in Alzheimer's disease with delusions (4) Dementia in Alzheimer's disease with depression (5) Dementia, vascular, with delusions (6) Dementia, vascular, with depression (7) Impulse control disorder NAKIA KO MD Sep 17, 2016 20:17
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
[2016-09-18 05:56] VITALS: BP 156/64
[2016-09-18] MEDS: CETIRIZINE HCL 10 MG TABLET PO SCH (08:03)
[2016-09-18] MEDS: DIVALPROEX 125 MG CAP.SPRINK PO SCH ×3 (08:04→19:32)
[2016-09-18] MEDS: GLUCOSAMINE 500 MG CAPSULE PO SCH (08:04)
[2016-09-18] MEDS: ASPIRIN 81 MG TAB.CHEW PO SCH (08:05)
[2016-09-18] MEDS: METOPROLOL SUCC 24HR ER 25 MG TAB.ER.24H. PO SCH ×2 (08:05→19:31)
[2016-09-18] MEDS: SERTRALINE 25 MG TABLET. PO SCH (08:06)
[2016-09-18] MEDS: PHENYTOIN SODIUM EXTENDED 100 MG CAPSULE PO SCH ×2 (08:06→19:32)
[2016-09-18] MEDS: LORazepam 0.5 MG TABLET PO SCH ×3 (08:27→19:31)
[2016-09-18] MEDS: QUEtiapine 25 MG TABLET. PO SCH ×4 (08:29→19:31)
[2016-09-18] MEDS: DICLOFENAC SODIUM 1% TOPICAL GEL 100GM TUBE. TP SCH ×3 (08:29→19:33)
[2016-09-18] MEDS: LORazepam 0.5 MG TABLET PO PRN (11:24)
[2016-09-18 16:12] VITALS: BP 162/82
[2016-09-18] MEDS: MELATONIN 3 MG TABLET PO SCH (19:29)
--- NOTE | 2016-09-18 19:55 | PDOC ---
Exam Dane Demential Exam: Dane Note: Please also refer to the separate dictated note~for this date of service dictated separately.~Patient seen individually. Discussed the patient with Nursing staff reviewed the chart.~Reviewed interim history and current functioning. Reviewed vital signs,~Labs/ Radiology~and current medications noted below. Continue current treatment with the changes noted in the dictated addendum note Assessment: Vital Signs: Vital Signs Date Time Temp Pulse Resp B/P (MAP) Pulse Ox O2 Delivery O2 Flow Rate FiO2 09/18/16 19:31 81 162/82 09/18/16 16:12 97.9 20 97 Room Air I&O Intake and Output 09/18/16 07:00 Intake Total 360 ml Balance 360 ml Intake Oral 360 ml Current Medications: Meds: Current Medications Acetaminophen (Tylenol) 650 mg PRN Q6HRS PRN PO PAIN / TEMP; Start 09/13/16 at 13:00 Multi-Ingredient Ointment (Analgesic [place]) 1 bcek PRN QID PRN TP MUSCLE PAIN; Start 09/13/16 at 14:00 Al Hydroxide/Mg Hydroxide (Mylanta Plus Xs) 15 ml PRN AFTMEALHC PRN PO DYSPEPSIA; Start 09/13/16 at 14:00 Magnesium Hydroxide (Milk Of Magnesia) 2,400 mg PRN QHS PRN PO CONSTIPATION; Start 09/13/16 at 14:00 Lorazepam (Ativan) 0.25 mg TID PO Last administered on 09/17/16 19:35; Start 09/13/16 at 21:00; Stop 09/17/16 at 22:21; Status DC Lorazepam (Ativan) 0.5 mg PRN TID PRN PO ANXIETY / AGITATION Last administered on 09/18/16 11:24; Start 09/13/16 at 16:00 Phenytoin Sodium (Dilantin) 100 mg BID PO Last administered on 09/18/16 19:32 ; Start 09/13/16 at 21:00 Quetiapine Fumarate (SEROquel) 25 mg BID PO Last administered on 09/16/16 09: 00; Start 09/13/16 at 21:00; Stop 09/16/16 at 18:14; Status DC Melatonin 3 mg HS PO Last administered on 09/18/16 19:29; Start 09/13/16 at 21: 00 Aspirin (Children'S Aspirin) 81 mg DAILY PO Last administered on 09/18/16 08: 05; Start 09/14/16 at 09:00 Diclofenac Sodium (Voltaren) 1 beck BID TP Last administered on 09/18/16 19:33 ; Start 09/13/16 at 21:00 Metoprolol Succinate (Toprol Xl) 25 mg BID PO Last administered on 09/18/16 19 :31; Start 09/13/16 at 21:00 Glucosamine Sulfate (Glucosamine) 1,000 mg DAILY PO Last administered on 08:04; Start 09/14/16 at 09:00 Cetirizine HCl (ZyrTEC) 10 mg DAILY PO Last administered on 09/18/16 08:03; Start 09/14/16 at 09:00 Olanzapine (ZyPREXA ZYDIS) 2.5 mg PRN Q4HRS PRN PO PSYCHOSIS Last administered on 09/18/16 19:33; Start 09/14/16 at 14:15 Divalproex Sodium (Depakote Sprinkles) 250 mg HS PO Last administered on 19:32; Start 09/15/16 at 21:00 Divalproex Sodium (Depakote Sprinkles) 125 mg BID92 PO Last administered on 14:14; Start 09/15/16 at 09:00 Vitamin D (Vitamin D3) 50,000 unit WEEKLY PO Last administered on 09/16/16 13: 26; Start 09/16/16 at 11:30 Quetiapine Fumarate (SEROquel) 25 mg BIDACBL PO ; Start 09/17/16 at 07:30; Stop 09/17/16 at 07:30; Status DC Quetiapine Fumarate (SEROquel) 12.5 mg NOON PO Last administered on 09/18/16 11:24; Start 09/17/16 at 12:00 Sertraline HCl (Zoloft) 25 mg DAILY PO Last administered on 09/18/16 08:06; Start 09/17/16 at 09:00; Stop 09/19/16 at 08:59 Sertraline HCl (Zoloft) 50 mg DAILY PO ; Start 09/19/16 at 09:00 Quetiapine Fumarate (SEROquel) 25 mg BID94 PO Last administered on 09/17/16 16 :15; Start 09/17/16 at 09:00; Stop 09/17/16 at 22:21; Status DC Lorazepam (Ativan) 0.125 mg TID PO Last administered on 09/18/16 19:31; Start 09/18/16 at 09:00 Quetiapine Fumarate (SEROquel) 25 mg TID PO Last administered on 09/18/16 19: 31; Start 09/18/16 at 09:00 Active Scripts Active Reported Seroquel (Quetiapine Fumarate) 25 Mg Tablet 25 Mg PO BID Lorazepam Intensol (Lorazepam) 2 Mg/1 Ml Oral.conc 0.25 Ml SL PRN TID PRN Voltaren (Diclofenac Sodium) 100 Gm Gel..gram. 1 Beck TP BID Lorazepam 0.5 Mg Tablet 0.25 Mg PO TID Melatin (Melatonin) 3 Mg Tablet 3 Mg PO QHS Metoprolol Succinate ( Xl ) (Metoprolol Succinate) 25 Mg Tab.er.24h 25 Mg PO BID Dilantin (Phenytoin Sodium Extended) 100 Mg Capsule 100 Mg PO BID Glucosamine Sulfate (Glucosamine Sulfate 2KCL) 1,000 Mg Tablet 1,000 Mg PO DAILY Aspirin 81 Mg Tab.chew 81 Mg PO DAILY Claritin (Loratadine) 10 Mg Tablet 10 Mg PO DAILY Diagnosis: Problems: (1) Dementia with behavioral disturbance (2) Anxiety disorder (3) Dementia in Alzheimer's disease with delusions (4) Dementia in Alzheimer's disease with depression (5) Dementia, vascular, with delusions (6) Dementia, vascular, with depression (7) Impulse control disorder NAKIA KO MD Sep 18, 2016 19:55
--- NOTE | 2016-09-18 20:23 | PDOC ---
Exam Dane Demential Exam: Dane Note: Please also refer to the separate dictated note~for this date of service dictated separately.~Patient seen individually. Discussed the patient with Nursing staff reviewed the chart.~Reviewed interim history and current functioning. Reviewed vital signs,~Labs/ Radiology~and current medications noted below. Continue current treatment with the changes noted in the dictated addendum note S/O: This is a late entry for date of service 09/14/2016 and covers elements not covered in my initial note of 09/14. I met with the patient on the evening of 09/14. I had been called by the nursing staff as an emergency earlier in the day as the patient is quite agitated, aggressive. We added Zyprexa p.r.n. since Ativan was ineffective and she has done better with the agitation, psychotic symptoms since then. No CV, , Pulmonary, Eye, ENT system symptoms on review. Reliability poor. MSE: Oriented to herself. Insight and judgment, recent and remote memory, attention and concentration, fund of knowledge poor consistent with her diagnosis. No overt psychotic symptoms, suicidal or homicidal ideation noted mentioned in my initial note. Imp: Major neurocognitive disorder; Alzheimer vascular with depression, delusion, behavioral disturbance; anxiety disorder, unspecified; impulse control disorder, unspecified. Plan: Continue psychotropics mentioned in my initial note along with Zyprexa p.r.n. Start low dose Depakote Sprinkles 125 mg twice a day. Follow labs level. Adjust further as clinically indicated. Assessment: Vital Signs: Vital Signs Date Time Temp Pulse Resp B/P (MAP) Pulse Ox O2 Delivery O2 Flow Rate FiO2 09/18/16 19:31 81 162/82 09/18/16 16:12 97.9 20 97 Room Air I&O Intake and Output 09/18/16 07:00 Intake Total 360 ml Balance 360 ml Intake Oral 360 ml Current Medications: Meds: Current Medications Acetaminophen (Tylenol) 650 mg PRN Q6HRS PRN PO PAIN / TEMP; Start 09/13/16 at 13:00 Multi-Ingredient Ointment (Analgesic [place]) 1 beck PRN QID PRN TP MUSCLE PAIN; Start 09/13/16 at 14:00 Al Hydroxide/Mg Hydroxide (Mylanta Plus Xs) 15 ml PRN AFTMEALHC PRN PO DYSPEPSIA; Start 09/13/16 at 14:00 Magnesium Hydroxide (Milk Of Magnesia) 2,400 mg PRN QHS PRN PO CONSTIPATION; Start 09/13/16 at 14:00 Lorazepam (Ativan) 0.25 mg TID PO Last administered on 09/17/16 19:35; Start 09/13/16 at 21:00; Stop 09/17/16 at 22:21; Status DC Lorazepam (Ativan) 0.5 mg PRN TID PRN PO ANXIETY / AGITATION Last administered on 09/18/16 11:24; Start 09/13/16 at 16:00 Phenytoin Sodium (Dilantin) 100 mg BID PO Last administered on 09/18/16 19:32 ; Start 09/13/16 at 21:00 Quetiapine Fumarate (SEROquel) 25 mg BID PO Last administered on 09/16/16 09: 00; Start 09/13/16 at 21:00; Stop 09/16/16 at 18:14; Status DC Melatonin 3 mg HS PO Last administered on 09/18/16 19:29; Start 09/13/16 at 21: 00 Aspirin (Children'S Aspirin) 81 mg DAILY PO Last administered on 09/18/16 08: 05; Start 09/14/16 at 09:00 Diclofenac Sodium (Voltaren) 1 beck BID TP Last administered on 09/18/16 19:33 ; Start 09/13/16 at 21:00 Metoprolol Succinate (Toprol Xl) 25 mg BID PO Last administered on 09/18/16 19 :31; Start 09/13/16 at 21:00 Glucosamine Sulfate (Glucosamine) 1,000 mg DAILY PO Last administered on 08:04; Start 09/14/16 at 09:00 Cetirizine HCl (ZyrTEC) 10 mg DAILY PO Last administered on 09/18/16 08:03; Start 09/14/16 at 09:00 Olanzapine (ZyPREXA ZYDIS) 2.5 mg PRN Q4HRS PRN PO PSYCHOSIS Last administered on 09/18/16 19:33; Start 09/14/16 at 14:15 Divalproex Sodium (Depakote Sprinkles) 250 mg HS PO Last administered on 19:32; Start 09/15/16 at 21:00 Divalproex Sodium (Depakote Sprinkles) 125 mg BID92 PO Last administered on 14:14; Start 09/15/16 at 09:00 Vitamin D (Vitamin D3) 50,000 unit WEEKLY PO Last administered on 09/16/16 13: 26; Start 09/16/16 at 11:30 Quetiapine Fumarate (SEROquel) 25 mg BIDACBL PO ; Start 09/17/16 at 07:30; Stop 09/17/16 at 07:30; Status DC Quetiapine Fumarate (SEROquel) 12.5 mg NOON PO Last administered on 09/18/16 11:24; Start 09/17/16 at 12:00 Sertraline HCl (Zoloft) 25 mg DAILY PO Last administered on 09/18/16 08:06; Start 09/17/16 at 09:00; Stop 09/19/16 at 08:59 Sertraline HCl (Zoloft) 50 mg DAILY PO ; Start 09/19/16 at 09:00 Quetiapine Fumarate (SEROquel) 25 mg BID94 PO Last administered on 09/17/16 16 :15; Start 09/17/16 at 09:00; Stop 09/17/16 at 22:21; Status DC Lorazepam (Ativan) 0.125 mg TID PO Last administered on 09/18/16 19:31; Start 09/18/16 at 09:00 Quetiapine Fumarate (SEROquel) 25 mg TID PO Last administered on 09/18/16 19: 31; Start 09/18/16 at 09:00 Active Scripts Active Reported Seroquel (Quetiapine Fumarate) 25 Mg Tablet 25 Mg PO BID Lorazepam Intensol (Lorazepam) 2 Mg/1 Ml Oral.conc 0.25 Ml SL PRN TID PRN Voltaren (Diclofenac Sodium) 100 Gm Gel..gram. 1 Beck TP BID Lorazepam 0.5 Mg Tablet 0.25 Mg PO TID Melatin (Melatonin) 3 Mg Tablet 3 Mg PO QHS Metoprolol Succinate ( Xl ) (Metoprolol Succinate) 25 Mg Tab.er.24h 25 Mg PO BID Dilantin (Phenytoin Sodium Extended) 100 Mg Capsule 100 Mg PO BID Glucosamine Sulfate (Glucosamine Sulfate 2KCL) 1,000 Mg Tablet 1,000 Mg PO DAILY Aspirin 81 Mg Tab.chew 81 Mg PO DAILY Claritin (Loratadine) 10 Mg Tablet 10 Mg PO DAILY NAKIA KO MD Sep 18, 2016 20:23
--- NOTE | 2016-09-18 20:58 | PDOC ---
Exam Dane Demential Exam: Dane Note: Please also refer to the separate dictated note~for this date of service dictated separately.~Patient seen individually. Discussed the patient with Nursing staff reviewed the chart.~Reviewed interim history and current functioning. Reviewed vital signs,~Labs/ Radiology~and current medications noted below. Continue current treatment with the changes noted in the dictated addendum note S/O: This is a late entry for date of service 09/15/2016 and covers elements not covered in my initial note. Nursing staff had called me as an emergency earlier in the day as the patient is quite agitated, aggressive, labile in her mood, disruptive despite p.r.n. Ativan. We added Zyprexa p.r.n. that seemed to help. Review of Systems: No CV, , Pulmonary, Eye, ENT system symptoms on review. Reliability is poor. MSE: Oriented to herself. Insight, judgment, recent and remote memory, attention, concentration, fund of knowledge are poor consistent with her diagnosis mentioned in my initial note. Plan: Continue psychotropics mentioned in my initial note. Check labs level on the and adjust further as clinically indicated for the Depakote. Assessment: Vital Signs: Vital Signs Date Time Temp Pulse Resp B/P (MAP) Pulse Ox O2 Delivery O2 Flow Rate FiO2 09/18/16 19:31 81 162/82 09/18/16 16:12 97.9 20 97 Room Air I&O Intake and Output 09/18/16 07:00 Intake Total 360 ml Balance 360 ml Intake Oral 360 ml Current Medications: Meds: Current Medications Acetaminophen (Tylenol) 650 mg PRN Q6HRS PRN PO PAIN / TEMP; Start 09/13/16 at 13:00 Multi-Ingredient Ointment (Analgesic [place]) 1 beck PRN QID PRN TP MUSCLE PAIN; Start 09/13/16 at 14:00 Al Hydroxide/Mg Hydroxide (Mylanta Plus Xs) 15 ml PRN AFTMEALHC PRN PO DYSPEPSIA; Start 09/13/16 at 14:00 Magnesium Hydroxide (Milk Of Magnesia) 2,400 mg PRN QHS PRN PO CONSTIPATION; Start 09/13/16 at 14:00 Lorazepam (Ativan) 0.25 mg TID PO Last administered on 09/17/16t 19:35; Start 09/13/16 at 21:00; Stop 09/17/16 at 22:21; Status DC Lorazepam (Ativan) 0.5 mg PRN TID PRN PO ANXIETY / AGITATION Last administered on 09/18/16 11:24; Start 09/13/16 at 16:00 Phenytoin Sodium (Dilantin) 100 mg BID PO Last administered on 09/18/16 19:32 ; Start 09/13/16 at 21:00 Quetiapine Fumarate (SEROquel) 25 mg BID PO Last administered on 09/16/16 09: 00; Start 09/13/16 at 21:00; Stop 09/16/16 at 18:14; Status DC Melatonin 3 mg HS PO Last administered on 09/18/16 19:29; Start 09/13/16 at 21: 00 Aspirin (Children'S Aspirin) 81 mg DAILY PO Last administered on 09/18/16 08: 05; Start 09/14/16 at 09:00 Diclofenac Sodium (Voltaren) 1 beck BID TP Last administered on 09/18/16 19:33 ; Start 09/13/16 at 21:00 Metoprolol Succinate (Toprol Xl) 25 mg BID PO Last administered on 09/18/16 19 :31; Start 09/13/16 at 21:00 Glucosamine Sulfate (Glucosamine) 1,000 mg DAILY PO Last administered on 08:04; Start 09/14/16 at 09:00 Cetirizine HCl (ZyrTEC) 10 mg DAILY PO Last administered on 09/18/16 08:03; Start 09/14/16 at 09:00 Olanzapine (ZyPREXA ZYDIS) 2.5 mg PRN Q4HRS PRN PO PSYCHOSIS Last administered on 09/18/16 19:33; Start 09/14/16 at 14:15 Divalproex Sodium (Depakote Sprinkles) 250 mg HS PO Last administered on 19:32; Start 09/15/16 at 21:00 Divalproex Sodium (Depakote Sprinkles) 125 mg BID92 PO Last administered on 14:14; Start 09/15/16 at 09:00 Vitamin D (Vitamin D3) 50,000 unit WEEKLY PO Last administered on 09/16/16 13: 26; Start 09/16/16 at 11:30 Quetiapine Fumarate (SEROquel) 25 mg BIDACBL PO ; Start 09/17/16 at 07:30; Stop 09/17/16 at 07:30; Status DC Quetiapine Fumarate (SEROquel) 12.5 mg NOON PO Last administered on 09/18/16 11:24; Start 09/17/16 at 12:00 Sertraline HCl (Zoloft) 25 mg DAILY PO Last administered on 09/18/16 08:06; Start 09/17/16 at 09:00; Stop 09/19/16 at 08:59 Sertraline HCl (Zoloft) 50 mg DAILY PO ; Start 09/19/16 at 09:00 Quetiapine Fumarate (SEROquel) 25 mg BID94 PO Last administered on 09/17/16 16 :15; Start 09/17/16 at 09:00; Stop 09/17/16 at 22:21; Status DC Lorazepam (Ativan) 0.125 mg TID PO Last administered on 09/18/16 19:31; Start 09/18/16 at 09:00 Quetiapine Fumarate (SEROquel) 25 mg TID PO Last administered on 09/18/16 19: 31; Start 09/18/16 at 09:00 Active Scripts Active Reported Seroquel (Quetiapine Fumarate) 25 Mg Tablet 25 Mg PO BID Lorazepam Intensol (Lorazepam) 2 Mg/1 Ml Oral.conc 0.25 Ml SL PRN TID PRN Voltaren (Diclofenac Sodium) 100 Gm Gel..gram. 1 Beck TP BID Lorazepam 0.5 Mg Tablet 0.25 Mg PO TID Melatin (Melatonin) 3 Mg Tablet 3 Mg PO QHS Metoprolol Succinate ( Xl ) (Metoprolol Succinate) 25 Mg Tab.er.24h 25 Mg PO BID Dilantin (Phenytoin Sodium Extended) 100 Mg Capsule 100 Mg PO BID Glucosamine Sulfate (Glucosamine Sulfate 2KCL) 1,000 Mg Tablet 1,000 Mg PO DAILY Aspirin 81 Mg Tab.chew 81 Mg PO DAILY Claritin (Loratadine) 10 Mg Tablet 10 Mg PO DAILY NAKIA KO MD Sep 18, 2016 20:58
[2016-09-19 05:59] VITALS: BP 135/69
[2016-09-19] MEDS: DICLOFENAC SODIUM 1% TOPICAL GEL 100GM TUBE. TP SCH ×3 (09:00→20:27)
[2016-09-19] MEDS: GLUCOSAMINE 500 MG CAPSULE PO SCH ×2 (09:00→09:44)
[2016-09-19] MEDS: PHENYTOIN SODIUM EXTENDED 100 MG CAPSULE PO SCH ×3 (09:00→20:20)
[2016-09-19] MEDS: CETIRIZINE HCL 10 MG TABLET PO SCH ×2 (09:00→09:43)
[2016-09-19] MEDS: ASPIRIN 81 MG TAB.CHEW PO SCH ×2 (09:00→09:44)
[2016-09-19] MEDS: METOPROLOL SUCC 24HR ER 25 MG TAB.ER.24H. PO SCH ×3 (09:00→20:25)
[2016-09-19] MEDS: LORazepam 0.5 MG TABLET PO SCH ×4 (09:00→20:27)
[2016-09-19] MEDS: SERTRALINE 50 MG TABLET. PO SCH ×2 (09:00→09:50)
[2016-09-19] MEDS: DIVALPROEX 125 MG CAP.SPRINK PO SCH ×3 (09:00→13:53)
[2016-09-19] MEDS: QUEtiapine 25 MG TABLET. PO SCH ×5 (09:00→20:25)
[2016-09-19 13:04] VITALS: BP 130/64
[2016-09-19 13:14] VITALS: BP 130/64
[2016-09-19] MEDS: LORazepam 0.5 MG TABLET PO PRN (13:52)
[2016-09-19 15:36] VITALS: BP 150/82
--- NOTE | 2016-09-19 20:07 | PDOC ---
Exam Dane Demential Exam: Dane Note: Please also refer to the separate dictated note~for this date of service dictated separately.~Patient seen individually. Discussed the patient with Nursing staff reviewed the chart.~Reviewed interim history and current functioning. Reviewed vital signs,~Labs/ Radiology~and current medications noted below. Continue current treatment with the changes noted in the dictated addendum note Assessment: Vital Signs: Vital Signs Date Time Temp Pulse Resp B/P (MAP) Pulse Ox O2 Delivery O2 Flow Rate FiO2 09/19/16 15:36 97.8 64 20 150/82 (104) 97 09/19/16 13:04 Room Air I&O Intake and Output 09/19/16 07:00 Intake Total 360 ml Balance 360 ml Intake Oral 360 ml Current Medications: Meds: Current Medications Acetaminophen (Tylenol) 650 mg PRN Q6HRS PRN PO PAIN / TEMP; Start 09/13/16 at 13:00 Multi-Ingredient Ointment (Analgesic [place]) 1 beck PRN QID PRN TP MUSCLE PAIN; Start 09/13/16 at 14:00 Al Hydroxide/Mg Hydroxide (Mylanta Plus Xs) 15 ml PRN AFTMEALHC PRN PO DYSPEPSIA; Start 09/13/16 at 14:00 Magnesium Hydroxide (Milk Of Magnesia) 2,400 mg PRN QHS PRN PO CONSTIPATION Last administered on 09/19/16 11:47; Start 09/13/16 at 14:00 Lorazepam (Ativan) 0.25 mg TID PO Last administered on 09/17/16 19:35; Start 09/13/16 at 21:00; Stop 09/17/16 at 22:21; Status DC Lorazepam (Ativan) 0.5 mg PRN TID PRN PO ANXIETY / AGITATION Last administered on 09/19/16 13:52; Start 09/13/16 at 16:00 Phenytoin Sodium (Dilantin) 100 mg BID PO Last administered on 09/18/16 19:32 ; Start 09/13/16 at 21:00 Quetiapine Fumarate (SEROquel) 25 mg BID PO Last administered on 09/16/16 09: 00; Start 09/13/16 at 21:00; Stop 09/16/16 at 18:14; Status DC Melatonin 3 mg HS PO Last administered on 09/18/16 19:29; Start 09/13/16 at 21: 00 Aspirin (Children'S Aspirin) 81 mg DAILY PO Last administered on 09/18/16 08: 05; Start 09/14/16 at 09:00 Diclofenac Sodium (Voltaren) 1 beck BID TP Last administered on 09/18/16 19:33 ; Start 09/13/16 at 21:00 Metoprolol Succinate (Toprol Xl) 25 mg BID PO Last administered on 09/18/16 19 :31; Start 09/13/16 at 21:00 Glucosamine Sulfate (Glucosamine) 1,000 mg DAILY PO Last administered on 08:04; Start 09/14/16 at 09:00 Cetirizine HCl (ZyrTEC) 10 mg DAILY PO Last administered on 09/18/16 08:03; Start 09/14/16 at 09:00 Olanzapine (ZyPREXA ZYDIS) 2.5 mg PRN Q4HRS PRN PO PSYCHOSIS Last administered on 09/19/16 18:10; Start 09/14/16 at 14:15 Divalproex Sodium (Depakote Sprinkles) 250 mg HS PO Last administered on 19:32; Start 09/15/16 at 21:00; Stop 09/19/16 at 18:12; Status DC Divalproex Sodium (Depakote Sprinkles) 125 mg BID92 PO Last administered on 13:53; Start 09/15/16 at 09:00; Stop 09/19/16 at 18:12; Status DC Vitamin D (Vitamin D3) 50,000 unit WEEKLY PO Last administered on 09/16/16 13: 26; Start 09/16/16 at 11:30 Quetiapine Fumarate (SEROquel) 25 mg BIDACBL PO ; Start 09/17/16 at 07:30; Stop 09/17/16 at 07:30; Status DC Quetiapine Fumarate (SEROquel) 12.5 mg NOON PO Last administered on 09/19/16 11:47; Start 09/17/16 at 12:00 Sertraline HCl (Zoloft) 25 mg DAILY PO Last administered on 09/18/16 08:06; Start 7/11/17 at 09:00; Stop 09/19/16 at 08:59; Status DC Sertraline HCl (Zoloft) 50 mg DAILY PO ; Start 09/19/16 at 09:00 Quetiapine Fumarate (SEROquel) 25 mg BID94 PO Last administered on 09/17/16 16 :15; Start 09/17/16 at 09:00; Stop 09/17/16 at 22:21; Status DC Lorazepam (Ativan) 0.125 mg TID PO Last administered on 09/18/16 19:31; Start 09/18/16 at 09:00 Quetiapine Fumarate (SEROquel) 25 mg TID PO Last administered on 09/19/16 13: 53; Start 09/18/16 at 09:00 Active Scripts Active Reported Seroquel (Quetiapine Fumarate) 25 Mg Tablet 25 Mg PO BID Lorazepam Intensol (Lorazepam) 2 Mg/1 Ml Oral.conc 0.25 Ml SL PRN TID PRN Voltaren (Diclofenac Sodium) 100 Gm Gel..gram. 1 Beck TP BID Lorazepam 0.5 Mg Tablet 0.25 Mg PO TID Melatin (Melatonin) 3 Mg Tablet 3 Mg PO QHS Metoprolol Succinate ( Xl ) (Metoprolol Succinate) 25 Mg Tab.er.24h 25 Mg PO BID Dilantin (Phenytoin Sodium Extended) 100 Mg Capsule 100 Mg PO BID Glucosamine Sulfate (Glucosamine Sulfate 2KCL) 1,000 Mg Tablet 1,000 Mg PO DAILY Aspirin 81 Mg Tab.chew 81 Mg PO DAILY Claritin (Loratadine) 10 Mg Tablet 10 Mg PO DAILY Diagnosis: Problems: (1) Dementia with behavioral disturbance (2) Anxiety disorder (3) Dementia in Alzheimer's disease with delusions (4) Dementia in Alzheimer's disease with depression (5) Dementia, vascular, with delusions (6) Dementia, vascular, with depression (7) Impulse control disorder NAKIA KO MD Sep 19, 2016 20:07
[2016-09-19] MEDS: MELATONIN 3 MG TABLET PO SCH (20:24)
--- NOTE | 2016-09-19 20:31 | PDOC ---
Exam Dane Demential Exam: Dane Note: Please also refer to the separate dictated note~for this date of service dictated separately.~Patient seen individually. Discussed the patient with Nursing staff reviewed the chart.~Reviewed interim history and current functioning. Reviewed vital signs,~Labs/ Radiology~and current medications noted below. Continue current treatment with the changes noted in the dictated addendum note S/O: This is a late entry for 09/16/2016 and covers elements not covered in my initial note. Met with the patient individually on the evening of 09/16/2016. The patient slept 7 hours, was quite tearful this morning, suggestive of pseudobulbar affect. She was somewhat labile in her mood, hyperverbal. She is irritable at lunch, combative in the evening, wandering. Review of Systems: No CV, , Pulmonary, Eye, ENT system symptoms on review. Reliability is poor. MSE: Oriented to herself. Insight and judgment, recent and remote memory, attention and concentration, fund of knowledge poor consistent with her diagnosis mentioned in my initial note. Plan: Phenytoin level therapeutic at 16.2. We will continue unchanged. Start Zoloft 25 mg a day increasing to 50 mg a day. Increase Seroquel from 25 mg b.i.d. to 25 mg at 9:00 am, 12.5 mg noon, 25 mg 5:00 p.m. Check valproic acid level in the morning, adjust further as clinically indicated. Assessment: Vital Signs: Vital Signs Date Time Temp Pulse Resp B/P (MAP) Pulse Ox O2 Delivery O2 Flow Rate FiO2 09/19/16 20:25 64 150/82 09/19/16 15:36 97.8 20 97 09/19/16 13:04 Room Air I&O Intake and Output 09/19/16 07:00 Intake Total 360 ml Balance 360 ml Intake Oral 360 ml Current Medications: Meds: Current Medications Acetaminophen (Tylenol) 650 mg PRN Q6HRS PRN PO PAIN / TEMP; Start 09/13/16 at 13:00 Multi-Ingredient Ointment (Analgesic [place]) 1 beck PRN QID PRN TP MUSCLE PAIN; Start 09/13/16 at 14:00 Al Hydroxide/Mg Hydroxide (Mylanta Plus Xs) 15 ml PRN AFTMEALHC PRN PO DYSPEPSIA; Start 09/13/16 at 14:00 Magnesium Hydroxide (Milk Of Magnesia) 2,400 mg PRN QHS PRN PO CONSTIPATION Last administered on 09/19/16 11:47; Start 09/13/16 at 14:00 Lorazepam (Ativan) 0.25 mg TID PO Last administered on 09/17/16 19:35; Start 09/13/16 at 21:00; Stop 09/17/16 at 22:21; Status DC Lorazepam (Ativan) 0.5 mg PRN TID PRN PO ANXIETY / AGITATION Last administered on 09/19/16 13:52; Start 09/13/16 at 16:00 Phenytoin Sodium (Dilantin) 100 mg BID PO Last administered on 09/19/16 20:20 ; Start 09/13/16 at 21:00 Quetiapine Fumarate (SEROquel) 25 mg BID PO Last administered on 09/16/16 09: 00; Start 09/13/16 at 21:00; Stop 09/16/16 at 18:14; Status DC Melatonin 3 mg HS PO Last administered on 09/19/16 20:24; Start 09/13/16 at 21: 00 Aspirin (Children'S Aspirin) 81 mg DAILY PO Last administered on 09/18/16 08: 05; Start 09/14/16 at 09:00 Diclofenac Sodium (Voltaren) 1 beck BID TP Last administered on 09/18/16 19:33 ; Start 09/13/16 at 21:00 Metoprolol Succinate (Toprol Xl) 25 mg BID PO Last administered on 09/19/16 20 :25; Start 09/13/16 at 21:00 Glucosamine Sulfate (Glucosamine) 1,000 mg DAILY PO Last administered on 08:04; Start 09/14/16 at 09:00 Cetirizine HCl (ZyrTEC) 10 mg DAILY PO Last administered on 09/18/16 08:03; Start 09/14/16 at 09:00 Olanzapine (ZyPREXA ZYDIS) 2.5 mg PRN Q4HRS PRN PO PSYCHOSIS Last administered on 09/19/16 18:10; Start 09/14/16 at 14:15 Divalproex Sodium (Depakote Sprinkles) 250 mg HS PO Last administered on 19:32; Start 09/15/16 at 21:00; Stop 09/19/16 at 18:12; Status DC Divalproex Sodium (Depakote Sprinkles) 125 mg BID92 PO Last administered on 13:53; Start 09/15/16 at 09:00; Stop 09/19/16 at 18:12; Status DC Vitamin D (Vitamin D3) 50,000 unit WEEKLY PO Last administered on 09/16/16 13: 26; Start 09/16/16 at 11:30 Quetiapine Fumarate (SEROquel) 25 mg BIDACBL PO ; Start 09/17/16 at 07:30; Stop 09/17/16 at 07:30; Status DC Quetiapine Fumarate (SEROquel) 12.5 mg NOON PO Last administered on 09/19/16 11:47; Start 09/17/16 at 12:00 Sertraline HCl (Zoloft) 25 mg DAILY PO Last administered on 09/18/16 08:06; Start 09/17/16 at 09:00; Stop 09/19/16 at 08:59; Status DC Sertraline HCl (Zoloft) 50 mg DAILY PO ; Start 09/19/16 at 09:00 Quetiapine Fumarate (SEROquel) 25 mg BID94 PO Last administered on 09/17/16 16 :15; Start 09/17/16 at 09:00; Stop 09/17/16 at 22:21; Status DC Lorazepam (Ativan) 0.125 mg TID PO Last administered on 09/19/16 20:27; Start 09/18/16 at 09:00 Quetiapine Fumarate (SEROquel) 25 mg TID PO Last administered on 09/19/16 20: 25; Start 09/18/16 at 09:00 Active Scripts Active Reported Seroquel (Quetiapine Fumarate) 25 Mg Tablet 25 Mg PO BID Lorazepam Intensol (Lorazepam) 2 Mg/1 Ml Oral.conc 0.25 Ml SL PRN TID PRN Voltaren (Diclofenac Sodium) 100 Gm Gel..gram. 1 Beck TP BID Lorazepam 0.5 Mg Tablet 0.25 Mg PO TID Melatin (Melatonin) 3 Mg Tablet 3 Mg PO QHS Metoprolol Succinate ( Xl ) (Metoprolol Succinate) 25 Mg Tab.er.24h 25 Mg PO BID Dilantin (Phenytoin Sodium Extended) 100 Mg Capsule 100 Mg PO BID Glucosamine Sulfate (Glucosamine Sulfate 2KCL) 1,000 Mg Tablet 1,000 Mg PO DAILY Aspirin 81 Mg Tab.chew 81 Mg PO DAILY Claritin (Loratadine) 10 Mg Tablet 10 Mg PO DAILY NAKIA KO MD Sep 19, 2016 20:31
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
[2016-09-20 06:25] VITALS: BP 145/67
[2016-09-20] MEDS: CETIRIZINE HCL 10 MG TABLET PO SCH (10:06)
[2016-09-20] MEDS: LORazepam 0.5 MG TABLET PO SCH ×3 (10:06→20:09)
[2016-09-20] MEDS: PHENYTOIN SODIUM EXTENDED 100 MG CAPSULE PO SCH ×2 (10:06→20:00)
[2016-09-20] MEDS: METOPROLOL SUCC 24HR ER 25 MG TAB.ER.24H. PO SCH ×2 (10:07→20:01)
[2016-09-20] MEDS: ASPIRIN 81 MG TAB.CHEW PO SCH (10:07)
[2016-09-20] MEDS: QUEtiapine 25 MG TABLET. PO SCH ×4 (10:08→20:00)
[2016-09-20] MEDS: GLUCOSAMINE 500 MG CAPSULE PO SCH (10:09)
[2016-09-20] MEDS: DICLOFENAC SODIUM 1% TOPICAL GEL 100GM TUBE. TP SCH ×2 (10:10→20:03)
[2016-09-20] MEDS: SERTRALINE 50 MG TABLET. PO SCH (10:10)
[2016-09-20 16:34] VITALS: BP 138/72
[2016-09-20] MEDS: MELATONIN 3 MG TABLET PO SCH (20:00)
--- NOTE | 2016-09-20 20:09 | PDOC ---
Exam Dane Demential Exam: Dane Note: Please also refer to the separate dictated note~for this date of service dictated separately.~Patient seen individually. Discussed the patient with Nursing staff reviewed the chart.~Reviewed interim history and current functioning. Reviewed vital signs,~Labs/ Radiology~and current medications noted below. Continue current treatment with the changes noted in the dictated addendum note Assessment: Vital Signs: Vital Signs Date Time Temp Pulse Resp B/P (MAP) Pulse Ox O2 Delivery O2 Flow Rate FiO2 09/20/16 20:01 75 138/72 09/20/16 16:34 97.8 20 97 09/19/16 13:04 Room Air I&O Intake and Output 09/20/16 07:00 Intake Total 840 ml Balance 840 ml Intake Oral 840 ml # Voids 1 Current Medications: Meds: Current Medications Acetaminophen (Tylenol) 650 mg PRN Q6HRS PRN PO PAIN / TEMP; Start 09/13/16 at 13:00 Multi-Ingredient Ointment (Analgesic [place]) 1 beck PRN QID PRN TP MUSCLE PAIN; Start 09/13/16 at 14:00 Al Hydroxide/Mg Hydroxide (Mylanta Plus Xs) 15 ml PRN AFTMEALHC PRN PO DYSPEPSIA; Start 09/13/16 at 14:00 Magnesium Hydroxide (Milk Of Magnesia) 2,400 mg PRN QHS PRN PO CONSTIPATION Last administered on 09/19/16 11:47; Start 09/13/16 at 14:00 Lorazepam (Ativan) 0.25 mg TID PO Last administered on 09/17/16 19:35; Start 09/13/16 at 21:00; Stop 09/17/16 at 22:21; Status DC Lorazepam (Ativan) 0.5 mg PRN TID PRN PO ANXIETY / AGITATION Last administered on 09/19/16 13:52; Start 09/13/16 at 16:00 Phenytoin Sodium (Dilantin) 100 mg BID PO Last administered on 09/20/16 20:00 ; Start 09/13/16 at 21:00 Quetiapine Fumarate (SEROquel) 25 mg BID PO Last administered on 09/16/16 09: 00; Start 09/13/16 at 21:00; Stop 09/16/16 at 18:14; Status DC Melatonin 3 mg HS PO Last administered on 09/20/16 20:00; Start 09/13/16 at 21: 00 Aspirin (Children'S Aspirin) 81 mg DAILY PO Last administered on 09/20/16 10: 07; Start 09/14/16 at 09:00 Diclofenac Sodium (Voltaren) 1 beck BID TP Last administered on 09/20/16 20:03 ; Start 09/13/16 at 21:00 Metoprolol Succinate (Toprol Xl) 25 mg BID PO Last administered on 09/20/16 20 :01; Start 09/13/16 at 21:00 Glucosamine Sulfate (Glucosamine) 1,000 mg DAILY PO Last administered on 08:04; Start 09/14/16 at 09:00 Cetirizine HCl (ZyrTEC) 10 mg DAILY PO Last administered on 09/20/16 10:06; Start 09/14/16 at 09:00 Olanzapine (ZyPREXA ZYDIS) 2.5 mg PRN Q4HRS PRN PO PSYCHOSIS Last administered on 09/20/16 09:02; Start 09/14/16 at 14:15 Divalproex Sodium (Depakote Sprinkles) 250 mg HS PO Last administered on 19:32; Start 09/15/16 at 21:00; Stop 09/19/16 at 18:12; Status DC Divalproex Sodium (Depakote Sprinkles) 125 mg BID92 PO Last administered on 13:53; Start 09/15/16 at 09:00; Stop 09/19/16 at 18:12; Status DC Vitamin D (Vitamin D3) 50,000 unit WEEKLY PO Last administered on 09/16/16 13: 26; Start 09/16/16 at 11:30 Quetiapine Fumarate (SEROquel) 25 mg BIDACBL PO ; Start 09/17/16 at 07:30; Stop 09/17/16 at 07:30; Status DC Quetiapine Fumarate (SEROquel) 12.5 mg NOON PO Last administered on 09/20/16 12:18; Start 09/17/16 at 12:00 Sertraline HCl (Zoloft) 25 mg DAILY PO Last administered on 09/18/16 08:06; Start 09/17/16 at 09:00; Stop 09/19/16 at 08:59; Status DC Sertraline HCl (Zoloft) 50 mg DAILY PO Last administered on 09/20/16 10:10; Start 09/19/16 at 09:00 Quetiapine Fumarate (SEROquel) 25 mg BID94 PO Last administered on 09/17/16 16 :15; Start 09/17/16 at 09:00; Stop 09/17/16 at 22:21; Status DC Lorazepam (Ativan) 0.125 mg TID PO Last administered on 09/20/16 14:37; Start 09/18/16 at 09:00 Quetiapine Fumarate (SEROquel) 25 mg TID PO Last administered on 09/20/16 20: 00; Start 09/18/16 at 09:00 Active Scripts Active Reported Seroquel (Quetiapine Fumarate) 25 Mg Tablet 25 Mg PO BID Lorazepam Intensol (Lorazepam) 2 Mg/1 Ml Oral.conc 0.25 Ml SL PRN TID PRN Voltaren (Diclofenac Sodium) 100 Gm Gel..gram. 1 Beck TP BID Lorazepam 0.5 Mg Tablet 0.25 Mg PO TID Melatin (Melatonin) 3 Mg Tablet 3 Mg PO QHS Metoprolol Succinate ( Xl ) (Metoprolol Succinate) 25 Mg Tab.er.24h 25 Mg PO BID Dilantin (Phenytoin Sodium Extended) 100 Mg Capsule 100 Mg PO BID Glucosamine Sulfate (Glucosamine Sulfate 2KCL) 1,000 Mg Tablet 1,000 Mg PO DAILY Aspirin 81 Mg Tab.chew 81 Mg PO DAILY Claritin (Loratadine) 10 Mg Tablet 10 Mg PO DAILY Diagnosis: Problems: (1) Dementia with behavioral disturbance (2) Anxiety disorder (3) Dementia in Alzheimer's disease with delusions (4) Dementia in Alzheimer's disease with depression (5) Dementia, vascular, with delusions (6) Dementia, vascular, with depression (7) Impulse control disorder NAKIA KO MD Sep 20, 2016 20:09
--- NOTE | 2016-09-20 20:46 | PDOC ---
Exam Dane Demential Exam: Dane Note: Please also refer to the separate dictated note~for this date of service dictated separately.~Patient seen individually. Discussed the patient with Nursing staff reviewed the chart.~Reviewed interim history and current functioning. Reviewed vital signs,~Labs/ Radiology~and current medications noted below. Continue current treatment with the changes noted in the dictated addendum note S/O: This is late entry on 09/18/2016 covers element not covered in my initial note. The patient is seen individually on evening of 09/18/2016. Reportedly per nursing staff, her moods have been "up and down." She is tearful at times. In the morning, she was in the dayroom, afraid someone was trying to come and hurt her, received Ativan and Zyprexa Zydis together with Seroquel at 11 o'clock , did better. Review of systems: No CV, , Pulmonary, Eye, ENT system symptoms on review. Reliability is poor. MSE: Oriented to herself. Insight, judgment, recent and remote memory, attention, concentration, fund of knowledge is poor, consistent with her diagnosis mentioned in my initial note. Plan: Continue psychotropics mentioned in my initial note. Zoloft is being increased, continue the rest unchanged. Ativan was reduced. Seroquel was added /adjusted. Assessment: Vital Signs: Vital Signs Date Time Temp Pulse Resp B/P (MAP) Pulse Ox O2 Delivery O2 Flow Rate FiO2 09/20/16 20:01 75 138/72 09/20/16 16:34 97.8 20 97 09/19/16 13:04 Room Air I&O Intake and Output 09/20/16 07:00 Intake Total 840 ml Balance 840 ml Intake Oral 840 ml # Voids 1 Current Medications: Meds: Current Medications Acetaminophen (Tylenol) 650 mg PRN Q6HRS PRN PO PAIN / TEMP; Start 09/13/16 at 13:00 Multi-Ingredient Ointment (Analgesic [place]) 1 beck PRN QID PRN TP MUSCLE PAIN; Start 09/13/16 at 14:00 Al Hydroxide/Mg Hydroxide (Mylanta Plus Xs) 15 ml PRN AFTMEALHC PRN PO DYSPEPSIA; Start 09/13/16 at 14:00 Magnesium Hydroxide (Milk Of Magnesia) 2,400 mg PRN QHS PRN PO CONSTIPATION Last administered on 09/19/16 11:47; Start 09/13/16 at 14:00 Lorazepam (Ativan) 0.25 mg TID PO Last administered on 09/17/16 19:35; Start 09/13/16 at 21:00; Stop 09/17/16 at 22:21; Status DC Lorazepam (Ativan) 0.5 mg PRN TID PRN PO ANXIETY / AGITATION Last administered on 09/19/16 13:52; Start 09/13/16 at 16:00 Phenytoin Sodium (Dilantin) 100 mg BID PO Last administered on 09/20/16 20:00 ; Start 09/13/16 at 21:00 Quetiapine Fumarate (SEROquel) 25 mg BID PO Last administered on 09/16/16 09: 00; Start 09/13/16 at 21:00; Stop 09/16/16 at 18:14; Status DC Melatonin 3 mg HS PO Last administered on 09/20/16 20:00; Start 09/13/16 at 21: 00 Aspirin (Children'S Aspirin) 81 mg DAILY PO Last administered on 09/20/16 10: 07; Start 09/14/16 at 09:00 Diclofenac Sodium (Voltaren) 1 beck BID TP Last administered on 09/20/16 20:03 ; Start 09/13/16 at 21:00 Metoprolol Succinate (Toprol Xl) 25 mg BID PO Last administered on 09/20/16 20 :01; Start 09/13/16 at 21:00 Glucosamine Sulfate (Glucosamine) 1,000 mg DAILY PO Last administered on 08:04; Start 09/14/16 at 09:00 Cetirizine HCl (ZyrTEC) 10 mg DAILY PO Last administered on 09/20/16 10:06; Start 09/14/16 at 09:00 Olanzapine (ZyPREXA ZYDIS) 2.5 mg PRN Q4HRS PRN PO PSYCHOSIS Last administered on 09/20/16 09:02; Start 09/14/16 at 14:15 Divalproex Sodium (Depakote Sprinkles) 250 mg HS PO Last administered on 19:32; Start 09/15/16 at 21:00; Stop 09/19/16 at 18:12; Status DC Divalproex Sodium (Depakote Sprinkles) 125 mg BID92 PO Last administered on 13:53; Start 09/15/16 at 09:00; Stop 09/19/16 at 18:12; Status DC Vitamin D (Vitamin D3) 50,000 unit WEEKLY PO Last administered on 09/16/16 13: 26; Start 09/16/16 at 11:30 Quetiapine Fumarate (SEROquel) 25 mg BIDACBL PO ; Start 09/17/16 at 07:30; Stop 09/17/16 at 07:30; Status DC Quetiapine Fumarate (SEROquel) 12.5 mg NOON PO Last administered on 09/20/16 12:18; Start 09/17/16 at 12:00 Sertraline HCl (Zoloft) 25 mg DAILY PO Last administered on 09/18/16 08:06; Start 09/17/16 at 09:00; Stop 09/19/16 at 08:59; Status DC Sertraline HCl (Zoloft) 50 mg DAILY PO Last administered on 09/20/16 10:10; Start 09/19/16 at 09:00 Quetiapine Fumarate (SEROquel) 25 mg BID94 PO Last administered on 09/17/16 16 :15; Start 09/17/16 at 09:00; Stop 09/17/16 at 22:21; Status DC Lorazepam (Ativan) 0.125 mg TID PO Last administered on 09/20/16 20:09; Start 09/18/16 at 09:00 Quetiapine Fumarate (SEROquel) 25 mg TID PO Last administered on 09/20/16 20: 00; Start 09/18/16 at 09:00 Active Scripts Active Reported Seroquel (Quetiapine Fumarate) 25 Mg Tablet 25 Mg PO BID Lorazepam Intensol (Lorazepam) 2 Mg/1 Ml Oral.conc 0.25 Ml SL PRN TID PRN Voltaren (Diclofenac Sodium) 100 Gm Gel..gram. 1 Beck TP BID Lorazepam 0.5 Mg Tablet 0.25 Mg PO TID Melatin (Melatonin) 3 Mg Tablet 3 Mg PO QHS Metoprolol Succinate ( Xl ) (Metoprolol Succinate) 25 Mg Tab.er.24h 25 Mg PO BID Dilantin (Phenytoin Sodium Extended) 100 Mg Capsule 100 Mg PO BID Glucosamine Sulfate (Glucosamine Sulfate 2KCL) 1,000 Mg Tablet 1,000 Mg PO DAILY Aspirin 81 Mg Tab.chew 81 Mg PO DAILY Claritin (Loratadine) 10 Mg Tablet 10 Mg PO DAILY NAKIA KO MD Sep 20, 2016 20:46
[2016-09-21 06:08] VITALS: BP 126/50
[2016-09-21] MEDS: LORazepam 0.5 MG TABLET PO SCH ×3 (08:19→19:39)
[2016-09-21] MEDS: ASPIRIN 81 MG TAB.CHEW PO SCH (08:20)
[2016-09-21] MEDS: QUEtiapine 25 MG TABLET. PO SCH ×4 (08:21→19:38)
[2016-09-21] MEDS: PHENYTOIN SODIUM EXTENDED 100 MG CAPSULE PO SCH ×2 (08:21→19:37)
[2016-09-21] MEDS: SERTRALINE 50 MG TABLET. PO SCH (08:22)
[2016-09-21] MEDS: CETIRIZINE HCL 10 MG TABLET PO SCH (08:22)
[2016-09-21 08:25] VITALS: BP 112/59
[2016-09-21] MEDS: GLUCOSAMINE 500 MG CAPSULE PO SCH (08:36)
[2016-09-21] MEDS: METOPROLOL SUCC 24HR ER 25 MG TAB.ER.24H. PO SCH ×2 (08:36→19:38)
[2016-09-21] MEDS: DICLOFENAC SODIUM 1% TOPICAL GEL 100GM TUBE. TP SCH ×2 (09:54→19:38)
[2016-09-21 16:17] VITALS: BP 151/76
--- NOTE | 2016-09-21 19:37 | PDOC ---
Exam Dane Demential Exam: Dane Note: .~Patient seen individually. Discussed the patient with Nursing staff reviewed the chart.~Reviewed interim history and current functioning. Reviewed vital signs,~Labs/ Radiology~and current medications noted below. Continue current treatment with the changes noted I met with the patient individually the evening of 09/21. Per nursing report patient remains confused and has been less anxious. Last night she was extremely anxious restless resistive to medications. She does take her medications in vanilla ice cream. Earlier in the day today nursing staff could not find her for a while on the unit and later found her crouched between the head of the bed and the wall. She was quite paranoid suspicious believing someone was trying to hurt her and certainly very confused. Review of systems: No eye EENT CV GI/ pulmonary integumentary system symptoms on review reliability poor due to her dementia Mental status examination: Patient is oriented to herself pleasant not very verbal and symmetric with her. Insight and judgment recent and remote memory attention concentration fund of knowledge are poor and consistent with her diagnosis. She is somewhat paranoid no active suicidal or homicidal ideation. Plan: Continue psychotropics mentioned below. If paranoia delusions persist we may need to increase the Seroquel or change this to Risperdal. Assessment: Vital Signs: Vital Signs Date Time Temp Pulse Resp B/P (MAP) Pulse Ox O2 Delivery O2 Flow Rate FiO2 09/21/16 16:17 97.8 77 20 151/76 (101) 96 Room Air I&O Intake and Output 09/21/16 07:00 Intake Total 600 ml Balance 600 ml Intake Oral 600 ml # Voids 1 Current Medications: Meds: Current Medications Acetaminophen (Tylenol) 650 mg PRN Q6HRS PRN PO PAIN / TEMP; Start 09/13/16 at 13:00 Multi-Ingredient Ointment (Analgesic [place]) 1 beck PRN QID PRN TP MUSCLE PAIN; Start 09/13/16 at 14:00 Al Hydroxide/Mg Hydroxide (Mylanta Plus Xs) 15 ml PRN AFTMEALHC PRN PO DYSPEPSIA; Start 09/13/16 at 14:00 Magnesium Hydroxide (Milk Of Magnesia) 2,400 mg PRN QHS PRN PO CONSTIPATION Last administered on 09/19/16t 11:47; Start 09/13/16 at 14:00 Lorazepam (Ativan) 0.25 mg TID PO Last administered on 09/17/16 19:35; Start 09/13/16 at 21:00; Stop 09/17/16 at 22:21; Status DC Lorazepam (Ativan) 0.5 mg PRN TID PRN PO ANXIETY / AGITATION Last administered on 09/19/16 13:52; Start 09/13/16 at 16:00 Phenytoin Sodium (Dilantin) 100 mg BID PO Last administered on 09/21/16 08:21 ; Start 09/13/16 at 21:00 Quetiapine Fumarate (SEROquel) 25 mg BID PO Last administered on 09/16/16 09: 00; Start 09/13/16 at 21:00; Stop 09/16/16 at 18:14; Status DC Melatonin 3 mg HS PO Last administered on 09/20/16 20:00; Start 09/13/16 at 21: 00 Aspirin (Children'S Aspirin) 81 mg DAILY PO Last administered on 09/21/16 08: 20; Start 09/14/16 at 09:00 Diclofenac Sodium (Voltaren) 1 beck BID TP Last administered on 09/21/16 09:54 ; Start 09/13/16 at 21:00 Metoprolol Succinate (Toprol Xl) 25 mg BID PO Last administered on 09/20/16 20 :01; Start 09/13/16 at 21:00 Glucosamine Sulfate (Glucosamine) 1,000 mg DAILY PO Last administered on 08:04; Start 09/14/16 at 09:00 Cetirizine HCl (ZyrTEC) 10 mg DAILY PO Last administered on 09/21/16 08:22; Start 09/14/16 at 09:00 Olanzapine (ZyPREXA ZYDIS) 2.5 mg PRN Q4HRS PRN PO PSYCHOSIS Last administered on 09/20/16 09:02; Start 09/14/16 at 14:15 Divalproex Sodium (Depakote Sprinkles) 250 mg HS PO Last administered on 19:32; Start 09/15/16 at 21:00; Stop 09/19/16 at 18:12; Status DC Divalproex Sodium (Depakote Sprinkles) 125 mg BID92 PO Last administered on 13:53; Start 09/15/16 at 09:00; Stop 09/19/16 at 18:12; Status DC Vitamin D (Vitamin D3) 50,000 unit WEEKLY PO Last administered on 09/16/16 13: 26; Start 09/16/16 at 11:30 Quetiapine Fumarate (SEROquel) 25 mg BIDACBL PO ; Start 09/17/16 at 07:30; Stop 09/17/16 at 07:30; Status DC Quetiapine Fumarate (SEROquel) 12.5 mg NOON PO Last administered on 09/21/16 13:06; Start 09/17/16 at 12:00 Sertraline HCl (Zoloft) 25 mg DAILY PO Last administered on 09/18/16 08:06; Start 09/17/16 at 09:00; Stop 09/19/16 at 08:59; Status DC Sertraline HCl (Zoloft) 50 mg DAILY PO Last administered on 09/21/16 08:22; Start 09/19/16 at 09:00 Quetiapine Fumarate (SEROquel) 25 mg BID94 PO Last administered on 09/17/16 16 :15; Start 09/17/16 at 09:00; Stop 09/17/16 at 22:21; Status DC Lorazepam (Ativan) 0.125 mg TID PO Last administered on 09/21/16 13:06; Start 09/18/16 at 09:00 Quetiapine Fumarate (SEROquel) 25 mg TID PO Last administered on 09/21/16 14: 23; Start 09/18/16 at 09:00 Active Scripts Active Reported Seroquel (Quetiapine Fumarate) 25 Mg Tablet 25 Mg PO BID Lorazepam Intensol (Lorazepam) 2 Mg/1 Ml Oral.conc 0.25 Ml SL PRN TID PRN Voltaren (Diclofenac Sodium) 100 Gm Gel..gram. 1 Beck TP BID Lorazepam 0.5 Mg Tablet 0.25 Mg PO TID Melatin (Melatonin) 3 Mg Tablet 3 Mg PO QHS Metoprolol Succinate ( Xl ) (Metoprolol Succinate) 25 Mg Tab.er.24h 25 Mg PO BID Dilantin (Phenytoin Sodium Extended) 100 Mg Capsule 100 Mg PO BID Glucosamine Sulfate (Glucosamine Sulfate 2KCL) 1,000 Mg Tablet 1,000 Mg PO DAILY Aspirin 81 Mg Tab.chew 81 Mg PO DAILY Claritin (Loratadine) 10 Mg Tablet 10 Mg PO DAILY Diagnosis: Problems: (1) Impulse control disorder (2) Dementia, vascular, with depression (3) Dementia, vascular, with delusions (4) Dementia in Alzheimer's disease with depression (5) Dementia in Alzheimer's disease with delusions (6) Anxiety disorder (7) Dementia with behavioral disturbance NAKIA KO MD Sep 21, 2016 19:37
[2016-09-21] MEDS: MELATONIN 3 MG TABLET PO SCH (19:38)
[2016-09-22 06:42] VITALS: BP 162/75
[2016-09-22] MEDS: PHENYTOIN SODIUM EXTENDED 100 MG CAPSULE PO SCH ×2 (08:28→19:18)
[2016-09-22] MEDS: LORazepam 0.5 MG TABLET PO SCH ×3 (08:28→19:57)
[2016-09-22] MEDS: QUEtiapine 25 MG TABLET. PO SCH ×4 (08:28→19:27)
[2016-09-22] MEDS: ASPIRIN 81 MG TAB.CHEW PO SCH (08:28)
[2016-09-22] MEDS: CETIRIZINE HCL 10 MG TABLET PO SCH (08:29)
[2016-09-22] MEDS: METOPROLOL SUCC 24HR ER 25 MG TAB.ER.24H. PO SCH ×2 (08:29→19:27)
[2016-09-22] MEDS: DICLOFENAC SODIUM 1% TOPICAL GEL 100GM TUBE. TP SCH ×2 (08:29→19:53)
[2016-09-22] MEDS: SERTRALINE 50 MG TABLET. PO SCH (08:29)
[2016-09-22] MEDS: GLUCOSAMINE 500 MG CAPSULE PO SCH (09:00)
[2016-09-22 15:15] LABS: BASO % 0 % (0-3); EOS # 0.1 x10^3/uL (0.0-0.7); EOS % 1 % (0-3); HEMATOCRIT 30.7 % (36.0-47.0); HEMOGLOBIN 10.7 g/dL (12.0-15.5); LYMPH # 1.5 x10^3/uL (1.0-4.8); LYMPH % 16 % (24-48); MEAN CORPUSCULAR HEMOGLOBIN 31 pg (25-35); MEAN CORPUSCULAR HGB CONC 35 g/dL (31-37); MEAN CORPUSCULAR VOLUME 90 fL (79-100); MONO # 0.6 x10^3/uL (0.0-1.1); MONO % 6 % (0-9); NEUT # 7.1 x10^3uL (1.8-7.7); NEUT % 76 % (31-73); PLATELET COUNT 164 x10^3/uL (140-400); RED CELL DISTRIBUTION WIDTH 14.1 % (11.5-14.5); WHITE BLOOD COUNT 9.3 x10^3/uL (4.0-11.0)
[2016-09-22 15:35] LABS: ALBUMIN 3.5 g/dL (3.4-5.0); ALBUMIN/GLOBULIN RATIO 1.1 (1.0-1.7); CALCIUM 8.5 mg/dL (8.5-10.1); CREATININE 0.9 mg/dL (0.6-1.0); GFR 59.5; POTASSIUM 3.7 mmol/L (3.5-5.1); TOTAL BILIRUBIN 0.3 mg/dL (0.2-1.0); TOTAL PROTEIN 6.8 g/dL (6.4-8.2)
[2016-09-22 16:02] VITALS: BP 126/85
[2016-09-22] MEDS: MELATONIN 3 MG TABLET PO SCH (19:27)
--- NOTE | 2016-09-22 20:07 | PDOC ---
Exam Dane Demential Exam: Dane Note: Please also refer to the separate dictated note~for this date of service dictated separately.~Patient seen individually. Discussed the patient with Nursing staff reviewed the chart.~Reviewed interim history and current functioning. Reviewed vital signs,~Labs/ Radiology~and current medications noted below. Continue current treatment with the changes noted in the dictated addendum note Assessment: Vital Signs: Vital Signs Date Time Temp Pulse Resp B/P (MAP) Pulse Ox O2 Delivery O2 Flow Rate FiO2 09/22/16 19:27 62 126/85 09/22/16 16:02 98.9 18 98 09/21/16 16:17 Room Air I&O Intake and Output 09/22/16 07:00 Intake Total 540 ml Balance 540 ml Intake Oral 540 ml # Voids 1 Labs: Laboratory Tests Test 09/22/16 14:58 White Blood Count 9.3 x10^3/uL (4.0-11.0) # Red Blood Count 3.40 x10^6/uL (3.50-5.40) L Hemoglobin 10.7 g/dL (12.0-15.5) L Hematocrit 30.7 % (36.0-47.0) L Mean Corpuscular Volume 90 fL (79-100) Mean Corpuscular Hemoglobin 31 pg (25-35) Mean Corpuscular Hemoglobin Concent 35 g/dL (31-37) Red Cell Distribution Width 14.1 % (11.5-14.5) Platelet Count 164 x10^3/uL (140-400) Neutrophils (%) (Auto) 76 % (31-73) H Lymphocytes (%) (Auto) 16 % (24-48) L Monocytes (%) (Auto) 6 % (0-9) Eosinophils (%) (Auto) 1 % (0-3) Basophils (%) (Auto) 0 % (0-3) Neutrophils # (Auto) 7.1 x10^3uL (1.8-7.7) Lymphocytes # (Auto) 1.5 x10^3/uL (1.0-4.8) Monocytes # (Auto) 0.6 x10^3/uL (0.0-1.1) Eosinophils # (Auto) 0.1 x10^3/uL (0.0-0.7) Basophils # (Auto) 0.0 x10^3/uL (0.0-0.2) Sodium Level 140 mmol/L (136-145) Potassium Level 3.7 mmol/L (3.5-5.1) Chloride Level 106 mmol/L (98-107) Carbon Dioxide Level 27 mmol/L (21-32) Anion Gap 7 (6-14) Blood Urea Nitrogen 22 mg/dL (7-20) H Creatinine 0.9 mg/dL (0.6-1.0) Estimated GFR (Cockcroft-Gault) 59.5 BUN/Creatinine Ratio 24 (6-20) H Glucose Level 118 mg/dL (70-99) H Calcium Level 8.5 mg/dL (8.5-10.1) Total Bilirubin 0.3 mg/dL (0.2-1.0) Aspartate Amino Transferase (AST) 29 U/L (15-37) Alanine Aminotransferase (ALT) 33 U/L (14-59) Alkaline Phosphatase 142 U/L (46-116) H Total Protein 6.8 g/dL (6.4-8.2) Albumin 3.5 g/dL (3.4-5.0) Albumin/Globulin Ratio 1.1 (1.0-1.7) Current Medications: Meds: Current Medications Acetaminophen (Tylenol) 650 mg PRN Q6HRS PRN PO PAIN / TEMP; Start 09/13/16 at 13:00 Multi-Ingredient Ointment (Analgesic [place]) 1 beck PRN QID PRN TP MUSCLE PAIN; Start 09/13/16 at 14:00 Al Hydroxide/Mg Hydroxide (Mylanta Plus Xs) 15 ml PRN AFTMEALHC PRN PO DYSPEPSIA; Start 09/13/16 at 14:00 Magnesium Hydroxide (Milk Of Magnesia) 2,400 mg PRN QHS PRN PO CONSTIPATION Last administered on 09/19/16 11:47; Start 09/13/16 at 14:00 Lorazepam (Ativan) 0.25 mg TID PO Last administered on 09/17/16 19:35; Start 09/13/16 at 21:00; Stop 09/17/16 at 22:21; Status DC Lorazepam (Ativan) 0.5 mg PRN TID PRN PO ANXIETY / AGITATION Last administered on 09/19/16 13:52; Start 09/13/16 at 16:00 Phenytoin Sodium (Dilantin) 100 mg BID PO Last administered on 09/22/16 19:18 ; Start 09/13/16 at 21:00 Quetiapine Fumarate (SEROquel) 25 mg BID PO Last administered on 09/16/16 09: 00; Start 09/13/16 at 21:00; Stop 09/16/16 at 18:14; Status DC Melatonin 3 mg HS PO Last administered on 09/22/16 19:27; Start 09/13/16 at 21: 00 Aspirin (Children'S Aspirin) 81 mg DAILY PO Last administered on 09/22/16 08: 28; Start 09/14/16 at 09:00 Diclofenac Sodium (Voltaren) 1 beck BID TP Last administered on 09/22/16 19:53 ; Start 09/13/16 at 21:00 Metoprolol Succinate (Toprol Xl) 25 mg BID PO Last administered on 09/22/16 19 :27; Start 09/13/16 at 21:00 Glucosamine Sulfate (Glucosamine) 1,000 mg DAILY PO Last administered on 08:04; Start 09/14/16 at 09:00 Cetirizine HCl (ZyrTEC) 10 mg DAILY PO Last administered on 09/22/16 08:29; Start 09/14/16 at 09:00 Olanzapine (ZyPREXA ZYDIS) 2.5 mg PRN Q4HRS PRN PO PSYCHOSIS Last administered on 09/22/16 12:53; Start 09/14/16 at 14:15 Divalproex Sodium (Depakote Sprinkles) 250 mg HS PO Last administered on 19:32; Start 09/15/16 at 21:00; Stop 09/19/16 at 18:12; Status DC Divalproex Sodium (Depakote Sprinkles) 125 mg BID92 PO Last administered on 13:53; Start 09/15/16 at 09:00; Stop 09/19/16 at 18:12; Status DC Vitamin D (Vitamin D3) 50,000 unit WEEKLY PO Last administered on 09/16/16 13: 26; Start 09/16/16 at 11:30 Quetiapine Fumarate (SEROquel) 25 mg BIDACBL PO ; Start 09/17/16 at 07:30; Stop 09/17/16 at 07:30; Status DC Quetiapine Fumarate (SEROquel) 12.5 mg NOON PO Last administered on 09/22/16 12:17; Start 09/17/16 at 12:00; Stop 09/22/16 at 18:38; Status DC Sertraline HCl (Zoloft) 25 mg DAILY PO Last administered on 09/18/16 08:06; Start 09/17/16 at 09:00; Stop 09/19/16 at 08:59; Status DC Sertraline HCl (Zoloft) 50 mg DAILY PO Last administered on 09/22/16 08:29; Start 09/19/16 at 09:00 Quetiapine Fumarate (SEROquel) 25 mg BID94 PO Last administered on 09/17/16 16 :15; Start 09/17/16 at 09:00; Stop 09/17/16 at 22:21; Status DC Lorazepam (Ativan) 0.125 mg TID PO Last administered on 09/22/16 14:18; Start 09/18/16 at 09:00; Stop 09/22/16 at 18:38; Status DC Quetiapine Fumarate (SEROquel) 25 mg TID PO Last administered on 09/22/16 14: 18; Start 09/18/16 at 09:00; Stop 09/22/16 at 18:38; Status DC Lorazepam (Ativan) 0.125 mg BID PO Last administered on 09/22/16 19:57; Start 09/22/16 at 21:00; Stop 09/25/16 at 20:59 Quetiapine Fumarate (SEROquel) 25 mg QID PO Last administered on 09/22/16 19: 27; Start 09/22/16 at 21:00 Lorazepam (Ativan) 0.125 mg DAILY PO ; Start 09/26/16 at 09:00; Stop 09/29/16 at 08:59 Active Scripts Active Reported Seroquel (Quetiapine Fumarate) 25 Mg Tablet 25 Mg PO BID Lorazepam Intensol (Lorazepam) 2 Mg/1 Ml Oral.conc 0.25 Ml SL PRN TID PRN Voltaren (Diclofenac Sodium) 100 Gm Gel..gram. 1 Beck TP BID Lorazepam 0.5 Mg Tablet 0.25 Mg PO TID Melatin (Melatonin) 3 Mg Tablet 3 Mg PO QHS Metoprolol Succinate ( Xl ) (Metoprolol Succinate) 25 Mg Tab.er.24h 25 Mg PO BID Dilantin (Phenytoin Sodium Extended) 100 Mg Capsule 100 Mg PO BID Glucosamine Sulfate (Glucosamine Sulfate 2KCL) 1,000 Mg Tablet 1,000 Mg PO DAILY Aspirin 81 Mg Tab.chew 81 Mg PO DAILY Claritin (Loratadine) 10 Mg Tablet 10 Mg PO DAILY Diagnosis: Problems: (1) Dementia with behavioral disturbance (2) Anxiety disorder (3) Dementia in Alzheimer's disease with delusions (4) Dementia in Alzheimer's disease with depression (5) Dementia, vascular, with delusions (6) Dementia, vascular, with depression (7) Impulse control disorder NAKIA KO MD Sep 22, 2016 20:07
[2016-09-23 06:12] VITALS: BP 144/72
[2016-09-23] MEDS: LORazepam 0.5 MG TABLET PO SCH ×2 (08:01→21:24)
[2016-09-23] MEDS: ASPIRIN 81 MG TAB.CHEW PO SCH (08:03)
[2016-09-23] MEDS: PHENYTOIN SODIUM EXTENDED 100 MG CAPSULE PO SCH ×2 (08:03→21:26)
[2016-09-23] MEDS: QUEtiapine 25 MG TABLET. PO SCH ×4 (08:03→21:25)
[2016-09-23] MEDS: METOPROLOL SUCC 24HR ER 25 MG TAB.ER.24H. PO SCH ×2 (08:04→21:25)
[2016-09-23] MEDS: CETIRIZINE HCL 10 MG TABLET PO SCH (08:04)
[2016-09-23] MEDS: SERTRALINE 50 MG TABLET. PO SCH (08:04)
[2016-09-23] MEDS: DICLOFENAC SODIUM 1% TOPICAL GEL 100GM TUBE. TP SCH ×2 (08:07→21:00)
[2016-09-23] MEDS: CHOLECALCIFEROL (VITAMIN D3) 50,000 UNIT CAPSULE PO SCH (08:07)
[2016-09-23] MEDS: GLUCOSAMINE 500 MG CAPSULE PO SCH (08:08)
[2016-09-23] MEDS: LORazepam 0.5 MG TABLET PO PRN (14:04)
[2016-09-23 15:33] VITALS: BP 140/77
--- NOTE | 2016-09-23 20:10 | PDOC ---
Exam Dane Demential Exam: Dane Note: Please also refer to the separate dictated note~for this date of service dictated separately.~Patient seen individually. Discussed the patient with Nursing staff reviewed the chart.~Reviewed interim history and current functioning. Reviewed vital signs,~Labs/ Radiology~and current medications noted below. Continue current treatment with the changes noted in the dictated addendum note Assessment: Vital Signs: Vital Signs Date Time Temp Pulse Resp B/P (MAP) Pulse Ox O2 Delivery O2 Flow Rate FiO2 09/23/16 15:33 98.0 65 20 140/77 (98) 92 Room Air I&O Intake and Output 09/23/16 07:00 Intake Total 600 ml Balance 600 ml Intake Oral 600 ml Current Medications: Meds: Current Medications Acetaminophen (Tylenol) 650 mg PRN Q6HRS PRN PO PAIN / TEMP; Start 09/13/16 at 13:00 Multi-Ingredient Ointment (Analgesic [place]) 1 beck PRN QID PRN TP MUSCLE PAIN; Start 09/13/16 at 14:00 Al Hydroxide/Mg Hydroxide (Mylanta Plus Xs) 15 ml PRN AFTMEALHC PRN PO DYSPEPSIA; Start 09/13/16 at 14:00 Magnesium Hydroxide (Milk Of Magnesia) 2,400 mg PRN QHS PRN PO CONSTIPATION Last administered on 09/19/16 11:47; Start 09/13/16 at 14:00 Lorazepam (Ativan) 0.25 mg TID PO Last administered on 09/17/16 19:35; Start 09/13/16 at 21:00; Stop 09/17/16 at 22:21; Status DC Lorazepam (Ativan) 0.5 mg PRN TID PRN PO ANXIETY / AGITATION Last administered on 09/23/16 14:04; Start 09/13/16 at 16:00 Phenytoin Sodium (Dilantin) 100 mg BID PO Last administered on 09/23/16 08:03 ; Start 09/13/16 at 21:00 Quetiapine Fumarate (SEROquel) 25 mg BID PO Last administered on 09/16/16 09: 00; Start 09/13/16 at 21:00; Stop 09/16/16 at 18:14; Status DC Melatonin 3 mg HS PO Last administered on 09/22/16 19:27; Start 09/13/16 at 21: 00 Aspirin (Children'S Aspirin) 81 mg DAILY PO Last administered on 09/23/16 08: 03; Start 09/14/16 at 09:00 Diclofenac Sodium (Voltaren) 1 beck BID TP Last administered on 09/22/16 19:53 ; Start 09/13/16 at 21:00 Metoprolol Succinate (Toprol Xl) 25 mg BID PO Last administered on 09/23/16 08 :04; Start 09/13/16 at 21:00 Glucosamine Sulfate (Glucosamine) 1,000 mg DAILY PO Last administered on 08:04; Start 09/14/16 at 09:00 Cetirizine HCl (ZyrTEC) 10 mg DAILY PO Last administered on 09/23/16 08:04; Start 09/14/16 at 09:00 Olanzapine (ZyPREXA ZYDIS) 2.5 mg PRN Q4HRS PRN PO PSYCHOSIS Last administered on 09/22/16 12:53; Start 09/14/16 at 14:15 Divalproex Sodium (Depakote Sprinkles) 250 mg HS PO Last administered on 19:32; Start 09/15/16 at 21:00; Stop 09/19/16 at 18:12; Status DC Divalproex Sodium (Depakote Sprinkles) 125 mg BID92 PO Last administered on 13:53; Start 09/15/16 at 09:00; Stop 09/19/16 at 18:12; Status DC Vitamin D (Vitamin D3) 50,000 unit WEEKLY PO Last administered on 09/16/16 13: 26; Start 09/16/16 at 11:30 Quetiapine Fumarate (SEROquel) 25 mg BIDACBL PO ; Start 09/17/16 at 07:30; Stop 09/17/16 at 07:30; Status DC Quetiapine Fumarate (SEROquel) 12.5 mg NOON PO Last administered on 09/22/16 12:17; Start 09/17/16 at 12:00; Stop 09/22/16 at 18:38; Status DC Sertraline HCl (Zoloft) 25 mg DAILY PO Last administered on 09/18/16 08:06; Start 09/17/16 at 09:00; Stop 09/19/16 at 08:59; Status DC Sertraline HCl (Zoloft) 50 mg DAILY PO Last administered on 09/23/16 08:04; Start 09/19/16 at 09:00 Quetiapine Fumarate (SEROquel) 25 mg BID94 PO Last administered on 09/17/16 16 :15; Start 09/17/16 at 09:00; Stop 09/17/16 at 22:21; Status DC Lorazepam (Ativan) 0.125 mg TID PO Last administered on 09/22/16 14:18; Start 09/18/16 at 09:00; Stop 09/22/16 at 18:38; Status DC Quetiapine Fumarate (SEROquel) 25 mg TID PO Last administered on 09/22/16 14: 18; Start 09/18/16 at 09:00; Stop 09/22/16 at 18:38; Status DC Lorazepam (Ativan) 0.125 mg BID PO Last administered on 09/23/16 08:01; Start 09/22/16 at 21:00; Stop 09/25/16 at 20:59 Quetiapine Fumarate (SEROquel) 25 mg QID PO Last administered on 09/23/16 17: 10; Start 09/22/16 at 21:00 Lorazepam (Ativan) 0.125 mg DAILY PO ; Start 09/26/16 at 09:00; Stop 09/29/16 at 08:59 Active Scripts Active Reported Seroquel (Quetiapine Fumarate) 25 Mg Tablet 25 Mg PO BID Lorazepam Intensol (Lorazepam) 2 Mg/1 Ml Oral.conc 0.25 Ml SL PRN TID PRN Voltaren (Diclofenac Sodium) 100 Gm Gel..gram. 1 Beck TP BID Lorazepam 0.5 Mg Tablet 0.25 Mg PO TID Melatin (Melatonin) 3 Mg Tablet 3 Mg PO QHS Metoprolol Succinate ( Xl ) (Metoprolol Succinate) 25 Mg Tab.er.24h 25 Mg PO BID Dilantin (Phenytoin Sodium Extended) 100 Mg Capsule 100 Mg PO BID Glucosamine Sulfate (Glucosamine Sulfate 2KCL) 1,000 Mg Tablet 1,000 Mg PO DAILY Aspirin 81 Mg Tab.chew 81 Mg PO DAILY Claritin (Loratadine) 10 Mg Tablet 10 Mg PO DAILY Diagnosis: Problems: (1) Dementia with behavioral disturbance (2) Anxiety disorder (3) Dementia in Alzheimer's disease with delusions (4) Dementia in Alzheimer's disease with depression (5) Dementia, vascular, with delusions (6) Dementia, vascular, with depression (7) Impulse control disorder NAKIA KO MD Sep 23, 2016 20:10
--- NOTE | 2016-09-23 20:47 | PDOC ---
Exam Dane Demential Exam: Dane Note: Please also refer to the separate dictated note~for this date of service dictated separately.~Patient seen individually. Discussed the patient with Nursing staff reviewed the chart.~Reviewed interim history and current functioning. Reviewed vital signs,~Labs/ Radiology~and current medications noted below. Continue current treatment with the changes noted in the dictated addendum note S/O: This is a late entry for 09/19/2016 and covered elements not covered in my initial note. The patient's daughter came and attended the conference, reviewed the patient's history, diagnosis, progress, medications, prognosis at length, and answered the daughter's questions. She fell in the day room in the evening, unsteady gait, is in a Broad chair and refused her a.m. medications. I have reviewed records from [facility] reflective of her current diagnosis. At times, she is picking on things in the air, possibly hallucinating, most anxious in the evening, able to attend groups at times, and has a history of seizure disorder. Review of Systems: No CV, , Pulmonary, Eye, ENT system symptoms on review. Reliability poor. MSE: Oriented to herself. Insight, judgment, recent and remote memory, attention, concentration, and fund of knowledge are poor consistent with her diagnosis mentioned in my initial note. Plan: Discontinue the Depakote since gait is unsteady. Maintain rest of the psychotropics. Request neurology client support consultant with Dr. Flores for seizure disorder. I have discussed with Dr. Flores. Assessment: Vital Signs: Vital Signs Date Time Temp Pulse Resp B/P (MAP) Pulse Ox O2 Delivery O2 Flow Rate FiO2 09/23/16 15:33 98.0 65 20 140/77 (98) 92 Room Air I&O Intake and Output 09/23/16 07:00 Intake Total 600 ml Balance 600 ml Intake Oral 600 ml Current Medications: Meds: Current Medications Acetaminophen (Tylenol) 650 mg PRN Q6HRS PRN PO PAIN / TEMP; Start 09/13/16 at 13:00 Multi-Ingredient Ointment (Analgesic [place]) 1 beck PRN QID PRN TP MUSCLE PAIN; Start 09/13/16 at 14:00 Al Hydroxide/Mg Hydroxide (Mylanta Plus Xs) 15 ml PRN AFTMEALHC PRN PO DYSPEPSIA; Start 09/13/16 at 14:00 Magnesium Hydroxide (Milk Of Magnesia) 2,400 mg PRN QHS PRN PO CONSTIPATION Last administered on 09/19/16 11:47; Start 09/13/16 at 14:00 Lorazepam (Ativan) 0.25 mg TID PO Last administered on 09/17/16 19:35; Start 09/13/16 at 21:00; Stop 09/17/16 at 22:21; Status DC Lorazepam (Ativan) 0.5 mg PRN TID PRN PO ANXIETY / AGITATION Last administered on 09/23/16 14:04; Start 09/13/16 at 16:00 Phenytoin Sodium (Dilantin) 100 mg BID PO Last administered on 09/23/16 08:03 ; Start 09/13/16 at 21:00 Quetiapine Fumarate (SEROquel) 25 mg BID PO Last administered on 09/16/16 09: 00; Start 09/13/16 at 21:00; Stop 09/16/16 at 18:14; Status DC Melatonin 3 mg HS PO Last administered on 09/22/16 19:27; Start 09/13/16 at 21: 00 Aspirin (Children'S Aspirin) 81 mg DAILY PO Last administered on 09/23/16 08: 03; Start 09/14/16 at 09:00 Diclofenac Sodium (Voltaren) 1 beck BID TP Last administered on 09/22/16 19:53 ; Start 09/13/16 at 21:00 Metoprolol Succinate (Toprol Xl) 25 mg BID PO Last administered on 09/23/16 08 :04; Start 09/13/16 at 21:00 Glucosamine Sulfate (Glucosamine) 1,000 mg DAILY PO Last administered on 08:04; Start 09/14/16 at 09:00 Cetirizine HCl (ZyrTEC) 10 mg DAILY PO Last administered on 09/23/16 08:04; Start 09/14/16 at 09:00 Olanzapine (ZyPREXA ZYDIS) 2.5 mg PRN Q4HRS PRN PO PSYCHOSIS Last administered on 09/22/16 12:53; Start 09/14/16 at 14:15 Divalproex Sodium (Depakote Sprinkles) 250 mg HS PO Last administered on 19:32; Start 09/15/16 at 21:00; Stop 09/19/16 at 18:12; Status DC Divalproex Sodium (Depakote Sprinkles) 125 mg BID92 PO Last administered on 13:53; Start 09/15/16 at 09:00; Stop 09/19/16 at 18:12; Status DC Vitamin D (Vitamin D3) 50,000 unit WEEKLY PO Last administered on 09/16/16 13: 26; Start 09/16/16 at 11:30 Quetiapine Fumarate (SEROquel) 25 mg BIDACBL PO ; Start 09/17/16 at 07:30; Stop 09/17/16 at 07:30; Status DC Quetiapine Fumarate (SEROquel) 12.5 mg NOON PO Last administered on 09/22/16 12:17; Start 09/17/16 at 12:00; Stop 09/22/16 at 18:38; Status DC Sertraline HCl (Zoloft) 25 mg DAILY PO Last administered on 09/18/16 08:06; Start 09/17/16 at 09:00; Stop 09/19/16 at 08:59; Status DC Sertraline HCl (Zoloft) 50 mg DAILY PO Last administered on 09/23/16 08:04; Start 09/19/16 at 09:00 Quetiapine Fumarate (SEROquel) 25 mg BID94 PO Last administered on 09/17/16 16 :15; Start 09/17/16 at 09:00; Stop 09/17/16 at 22:21; Status DC Lorazepam (Ativan) 0.125 mg TID PO Last administered on 09/22/16 14:18; Start 09/18/16 at 09:00; Stop 09/22/16 at 18:38; Status DC Quetiapine Fumarate (SEROquel) 25 mg TID PO Last administered on 09/22/16 14: 18; Start 09/18/16 at 09:00; Stop 09/22/16 at 18:38; Status DC Lorazepam (Ativan) 0.125 mg BID PO Last administered on 09/23/16 08:01; Start 09/22/16 at 21:00; Stop 09/25/16 at 20:59 Quetiapine Fumarate (SEROquel) 25 mg QID PO Last administered on 09/23/16t 17: 10; Start 09/22/16 at 21:00 Lorazepam (Ativan) 0.125 mg DAILY PO ; Start 09/26/16 at 09:00; Stop 09/29/16 at 08:59 Active Scripts Active Reported Seroquel (Quetiapine Fumarate) 25 Mg Tablet 25 Mg PO BID Lorazepam Intensol (Lorazepam) 2 Mg/1 Ml Oral.conc 0.25 Ml SL PRN TID PRN Voltaren (Diclofenac Sodium) 100 Gm Gel..gram. 1 Beck TP BID Lorazepam 0.5 Mg Tablet 0.25 Mg PO TID Melatin (Melatonin) 3 Mg Tablet 3 Mg PO QHS Metoprolol Succinate ( Xl ) (Metoprolol Succinate) 25 Mg Tab.er.24h 25 Mg PO BID Dilantin (Phenytoin Sodium Extended) 100 Mg Capsule 100 Mg PO BID Glucosamine Sulfate (Glucosamine Sulfate 2KCL) 1,000 Mg Tablet 1,000 Mg PO DAILY Aspirin 81 Mg Tab.chew 81 Mg PO DAILY Claritin (Loratadine) 10 Mg Tablet 10 Mg PO DAILY NAKIA KO MD Sep 23, 2016 20:47
[2016-09-23] MEDS: MELATONIN 3 MG TABLET PO SCH (21:25)
[2016-09-24 05:57] VITALS: BP 123/71
[2016-09-24] MEDS: GLUCOSAMINE 500 MG CAPSULE PO SCH (08:47)
[2016-09-24] MEDS: QUEtiapine 25 MG TABLET. PO SCH ×4 (08:48→19:16)
[2016-09-24] MEDS: SERTRALINE 50 MG TABLET. PO SCH (08:48)
[2016-09-24] MEDS: PHENYTOIN SODIUM EXTENDED 100 MG CAPSULE PO SCH ×2 (08:48→19:16)
[2016-09-24] MEDS: CETIRIZINE HCL 10 MG TABLET PO SCH (08:48)
[2016-09-24] MEDS: ASPIRIN 81 MG TAB.CHEW PO SCH (08:48)
[2016-09-24] MEDS: METOPROLOL SUCC 24HR ER 25 MG TAB.ER.24H. PO SCH ×2 (08:48→19:16)
[2016-09-24] MEDS: LORazepam 0.5 MG TABLET PO SCH ×2 (08:50→19:19)
[2016-09-24] MEDS: DICLOFENAC SODIUM 1% TOPICAL GEL 100GM TUBE. TP SCH ×2 (08:50→21:00)
[2016-09-24] MEDS: ACETAMINOPHEN 325 MG TABLET PO PRN (14:18)
--- NOTE | 2016-09-24 15:50 | RAD ---
Indication closed head injury. Noncontrast images of the head were obtained. No prior imaging of the head is available. Best demonstrated on the coronal and sagittal reformatted images is a scalp hematoma. No calvarial finding is seen. The visualized paranasal sinuses appear unremarkable. There is no subdural or epidural hematoma. There is underlying atrophy. There is increased lucency in the deep white matter compatible with microvascular disease. A more focal lucency is seen in the left occipital lobe compatible with an old insult. There is no hemorrhage. Acute finding is not apparent. IMPRESSION: Chronic changes. No acute finding seen PQRS Compliance Statement: One or more of the following individualized dose reduction techniques were utilized for this examination: 1. Automated exposure control 2. Adjustment of the mA and/or kV according to patient size 3. Use of iterative reconstruction technique
[2016-09-24 16:08] VITALS: BP 151/67
[2016-09-24] MEDS: MELATONIN 3 MG TABLET PO SCH (19:16)
[2016-09-24] MEDS: busPIRone 5 MG TABLET. PO SCH (19:31)
--- NOTE | 2016-09-24 20:33 | PDOC ---
Exam Dane Demential Exam: Dane Note: Please also refer to the separate dictated note~for this date of service dictated separately.~Patient seen individually. Discussed the patient with Nursing staff reviewed the chart.~Reviewed interim history and current functioning. Reviewed vital signs,~Labs/ Radiology~and current medications noted below. Continue current treatment with the changes noted in the dictated addendum note Assessment: Vital Signs: Vital Signs Date Time Temp Pulse Resp B/P (MAP) Pulse Ox O2 Delivery O2 Flow Rate FiO2 09/24/16 19:16 81 151/67 09/24/16 16:08 98.1 18 97 09/23/16 15:33 Room Air I&O Intake and Output 09/24/16 07:00 Intake Total 840 ml Balance 840 ml Intake Oral 840 ml Current Medications: Meds: Current Medications Acetaminophen (Tylenol) 650 mg PRN Q6HRS PRN PO PAIN / TEMP Last administered on 09/24/16 14:18; Start 09/13/16 at 13:00 Multi-Ingredient Ointment (Analgesic [place]) 1 beck PRN QID PRN TP MUSCLE PAIN; Start 09/13/16 at 14:00 Al Hydroxide/Mg Hydroxide (Mylanta Plus Xs) 15 ml PRN AFTMEALHC PRN PO DYSPEPSIA; Start 09/13/16 at 14:00 Magnesium Hydroxide (Milk Of Magnesia) 2,400 mg PRN QHS PRN PO CONSTIPATION Last administered on 09/19/16 11:47; Start 09/13/16 at 14:00 Lorazepam (Ativan) 0.25 mg TID PO Last administered on 09/17/16 19:35; Start 09/13/16 at 21:00; Stop 09/17/16 at 22:21; Status DC Lorazepam (Ativan) 0.5 mg PRN TID PRN PO ANXIETY / AGITATION Last administered on 09/23/16 14:04; Start 09/13/16 at 16:00 Phenytoin Sodium (Dilantin) 100 mg BID PO Last administered on 09/24/16 19:16 ; Start 09/13/16 at 21:00 Quetiapine Fumarate (SEROquel) 25 mg BID PO Last administered on 09/16/16 09: 00; Start 09/13/16 at 21:00; Stop 09/16/16 at 18:14; Status DC Melatonin 3 mg HS PO Last administered on 09/24/16 19:16; Start 09/13/16 at 21: 00 Aspirin (Children'S Aspirin) 81 mg DAILY PO Last administered on 09/24/16 08: 48; Start 09/14/16 at 09:00 Diclofenac Sodium (Voltaren) 1 beck BID TP Last administered on 09/22/16 19:53 ; Start 09/13/16 at 21:00 Metoprolol Succinate (Toprol Xl) 25 mg BID PO Last administered on 09/24/16 19 :16; Start 09/13/16 at 21:00 Glucosamine Sulfate (Glucosamine) 1,000 mg DAILY PO Last administered on 08:47; Start 09/14/16 at 09:00 Cetirizine HCl (ZyrTEC) 10 mg DAILY PO Last administered on 09/24/16 08:48; Start 09/14/16 at 09:00 Olanzapine (ZyPREXA ZYDIS) 2.5 mg PRN Q4HRS PRN PO PSYCHOSIS Last administered on 09/22/16 12:53; Start 09/14/16 at 14:15 Divalproex Sodium (Depakote Sprinkles) 250 mg HS PO Last administered on 19:32; Start 09/15/16 at 21:00; Stop 09/19/16 at 18:12; Status DC Divalproex Sodium (Depakote Sprinkles) 125 mg BID92 PO Last administered on 13:53; Start 09/15/16 at 09:00; Stop 09/19/16 at 18:12; Status DC Vitamin D (Vitamin D3) 50,000 unit WEEKLY PO Last administered on 09/16/16 13: 26; Start 09/16/16 at 11:30 Quetiapine Fumarate (SEROquel) 25 mg BIDACBL PO ; Start 09/17/16 at 07:30; Stop 09/17/16 at 07:30; Status DC Quetiapine Fumarate (SEROquel) 12.5 mg NOON PO Last administered on 09/22/16 12:17; Start 09/17/16 at 12:00; Stop 09/22/16 at 18:38; Status DC Sertraline HCl (Zoloft) 25 mg DAILY PO Last administered on 09/18/16 08:06; Start 09/17/16 at 09:00; Stop 09/19/16 at 08:59; Status DC Sertraline HCl (Zoloft) 50 mg DAILY PO Last administered on 09/24/16 08:48; Start 09/19/16 at 09:00 Quetiapine Fumarate (SEROquel) 25 mg BID94 PO Last administered on 09/17/16 16 :15; Start 09/17/16 at 09:00; Stop 09/17/16 at 22:21; Status DC Lorazepam (Ativan) 0.125 mg TID PO Last administered on 09/22/16 14:18; Start 09/18/16 at 09:00; Stop 09/22/16 at 18:38; Status DC Quetiapine Fumarate (SEROquel) 25 mg TID PO Last administered on 09/22/16 14: 18; Start 09/18/16 at 09:00; Stop 09/22/16 at 18:38; Status DC Lorazepam (Ativan) 0.125 mg BID PO Last administered on 09/24/16 19:19; Start 09/22/16 at 21:00; Stop 09/25/16 at 20:59 Quetiapine Fumarate (SEROquel) 25 mg QID PO Last administered on 09/24/16 19: 16; Start 09/22/16 at 21:00 Lorazepam (Ativan) 0.125 mg DAILY PO ; Start 09/26/16 at 09:00; Stop 09/29/16 at 08:59 Buspirone HCl (Buspar) 5 mg BID PO Last administered on 09/24/16 19:31; Start 09/24/16 at 21:00 Active Scripts Active Reported Seroquel (Quetiapine Fumarate) 25 Mg Tablet 25 Mg PO BID Lorazepam Intensol (Lorazepam) 2 Mg/1 Ml Oral.conc 0.25 Ml SL PRN TID PRN Voltaren (Diclofenac Sodium) 100 Gm Gel..gram. 1 Beck TP BID Lorazepam 0.5 Mg Tablet 0.25 Mg PO TID Melatin (Melatonin) 3 Mg Tablet 3 Mg PO QHS Metoprolol Succinate ( Xl ) (Metoprolol Succinate) 25 Mg Tab.er.24h 25 Mg PO BID Dilantin (Phenytoin Sodium Extended) 100 Mg Capsule 100 Mg PO BID Glucosamine Sulfate (Glucosamine Sulfate 2KCL) 1,000 Mg Tablet 1,000 Mg PO DAILY Aspirin 81 Mg Tab.chew 81 Mg PO DAILY Claritin (Loratadine) 10 Mg Tablet 10 Mg PO DAILY Diagnosis: Problems: (1) Dementia with behavioral disturbance (2) Anxiety disorder (3) Dementia in Alzheimer's disease with delusions (4) Dementia in Alzheimer's disease with depression (5) Dementia, vascular, with delusions (6) Dementia, vascular, with depression (7) Impulse control disorder NAKIA KO MD Sep 24, 2016 20:33
[2016-09-25 05:31] VITALS: BP 110/60
[2016-09-25] MEDS: LORazepam 0.5 MG TABLET PO PRN (06:37)
[2016-09-25] MEDS: PHENYTOIN SODIUM EXTENDED 100 MG CAPSULE PO SCH ×2 (08:08→19:29)
[2016-09-25] MEDS: QUEtiapine 25 MG TABLET. PO SCH ×4 (08:08→19:29)
[2016-09-25] MEDS: GLUCOSAMINE 500 MG CAPSULE PO SCH (08:08)
[2016-09-25] MEDS: CETIRIZINE HCL 10 MG TABLET PO SCH (08:08)
[2016-09-25] MEDS: SERTRALINE 50 MG TABLET. PO SCH (08:08)
[2016-09-25] MEDS: busPIRone 5 MG TABLET. PO SCH ×2 (08:09→19:29)
[2016-09-25] MEDS: METOPROLOL SUCC 24HR ER 25 MG TAB.ER.24H. PO SCH ×2 (08:09→19:29)
[2016-09-25] MEDS: ASPIRIN 81 MG TAB.CHEW PO SCH (08:09)
[2016-09-25] MEDS: DICLOFENAC SODIUM 1% TOPICAL GEL 100GM TUBE. TP SCH ×2 (08:10→19:30)
[2016-09-25] MEDS: LORazepam 0.5 MG TABLET PO SCH (09:00)
[2016-09-25 16:01] VITALS: BP 152/81
[2016-09-25] MEDS: MELATONIN 3 MG TABLET PO SCH (19:29)
--- NOTE | 2016-09-25 20:31 | PDOC ---
Exam Dane Demential Exam: Dane Note: Please also refer to the separate dictated note~for this date of service dictated separately.~Patient seen individually. Discussed the patient with Nursing staff reviewed the chart.~Reviewed interim history and current functioning. Reviewed vital signs,~Labs/ Radiology~and current medications noted below. Continue current treatment with the changes noted in the dictated addendum note Patient was seen individually the evening of 09/25. Per nursing report she is somewhat anxious restless this evening received Ativan when necessary quite fidgety. She is having some tremors but the family said this is part of her anxiety and Dr. Flores confirms this post neurology consult. She remains confused wanders the hallways but not aggressive. Review of systems: No eye ENT CV pulmonary integumentary system symptoms on review reliability poor. She is not very verbal. Mental status examination patient is oriented to herself inside judgment recent remote memory attention concentration fund of knowledge are poor consistent with her diagnosis. She seems quite oblivious of her surroundings. Labs reviewed. 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 Anxiety disorder unspecified. Impulse control disorder unspecified. Plan: Continue patient on her Dilantin and melatonin Ativan has been tapered maintain Seroquel Zoloft and Zyprexa when necessary along with BuSpar 5 mg twice a day. Adjust further as clinically indicated. Assessment: Vital Signs: Vital Signs Date Time Temp Pulse Resp B/P (MAP) Pulse Ox O2 Delivery O2 Flow Rate FiO2 09/25/16 19:29 83 152/81 09/25/16 16:01 98.7 18 92 09/23/16 15:33 Room Air I&O Intake and Output 09/25/16 07:00 Intake Total 960 ml Balance 960 ml Intake Oral 960 ml Current Medications: Meds: Current Medications Acetaminophen (Tylenol) 650 mg PRN Q6HRS PRN PO PAIN / TEMP Last administered on 09/24/16t 14:18; Start 09/13/16 at 13:00 Multi-Ingredient Ointment (Analgesic [place]) 1 beck PRN QID PRN TP MUSCLE PAIN; Start 09/13/16 at 14:00 Al Hydroxide/Mg Hydroxide (Mylanta Plus Xs) 15 ml PRN AFTMEALHC PRN PO DYSPEPSIA; Start 09/13/16 at 14:00 Magnesium Hydroxide (Milk Of Magnesia) 2,400 mg PRN QHS PRN PO CONSTIPATION Last administered on 09/19/16 11:47; Start 09/13/16 at 14:00 Lorazepam (Ativan) 0.25 mg TID PO Last administered on 09/17/16 19:35; Start 09/13/16 at 21:00; Stop 09/17/16 at 22:21; Status DC Lorazepam (Ativan) 0.5 mg PRN TID PRN PO ANXIETY / AGITATION Last administered on 09/25/16 06:37; Start 09/13/16 at 16:00 Phenytoin Sodium (Dilantin) 100 mg BID PO Last administered on 09/25/16 19:29 ; Start 09/13/16 at 21:00 Quetiapine Fumarate (SEROquel) 25 mg BID PO Last administered on 09/16/16 09: 00; Start 09/13/16 at 21:00; Stop 09/16/16 at 18:14; Status DC Melatonin 3 mg HS PO Last administered on 09/25/16 19:29; Start 09/13/16 at 21: 00 Aspirin (Children'S Aspirin) 81 mg DAILY PO Last administered on 09/25/16 08: 09; Start 09/14/16 at 09:00 Diclofenac Sodium (Voltaren) 1 beck BID TP Last administered on 09/25/16 19:30 ; Start 09/13/16 at 21:00 Metoprolol Succinate (Toprol Xl) 25 mg BID PO Last administered on 09/25/16 19 :29; Start 09/13/16 at 21:00 Glucosamine Sulfate (Glucosamine) 1,000 mg DAILY PO Last administered on 08:08; Start 09/14/16 at 09:00 Cetirizine HCl (ZyrTEC) 10 mg DAILY PO Last administered on 09/25/16 08:08; Start 09/14/16 at 09:00 Olanzapine (ZyPREXA ZYDIS) 2.5 mg PRN Q4HRS PRN PO PSYCHOSIS Last administered on 09/22/16 12:53; Start 09/14/16 at 14:15 Divalproex Sodium (Depakote Sprinkles) 250 mg HS PO Last administered on 19:32; Start 09/15/16 at 21:00; Stop 09/19/16 at 18:12; Status DC Divalproex Sodium (Depakote Sprinkles) 125 mg BID92 PO Last administered on 13:53; Start 09/15/16 at 09:00; Stop 09/19/16 at 18:12; Status DC Vitamin D (Vitamin D3) 50,000 unit WEEKLY PO Last administered on 09/16/16 13: 26; Start 09/16/16 at 11:30 Quetiapine Fumarate (SEROquel) 25 mg BIDACBL PO ; Start 09/17/16 at 07:30; Stop 09/17/16 at 07:30; Status DC Quetiapine Fumarate (SEROquel) 12.5 mg NOON PO Last administered on 09/22/16 12:17; Start 09/17/16 at 12:00; Stop 09/22/16 at 18:38; Status DC Sertraline HCl (Zoloft) 25 mg DAILY PO Last administered on 09/18/16 08:06; Start 09/17/16 at 09:00; Stop 09/19/16 at 08:59; Status DC Sertraline HCl (Zoloft) 50 mg DAILY PO Last administered on 09/25/16 08:08; Start 09/19/16 at 09:00 Quetiapine Fumarate (SEROquel) 25 mg BID94 PO Last administered on 09/17/16 16 :15; Start 09/17/16 at 09:00; Stop 09/17/16 at 22:21; Status DC Lorazepam (Ativan) 0.125 mg TID PO Last administered on 09/22/16 14:18; Start 09/18/16 at 09:00; Stop 09/22/16 at 18:38; Status DC Quetiapine Fumarate (SEROquel) 25 mg TID PO Last administered on 09/22/16 14: 18; Start 09/18/16 at 09:00; Stop 09/22/16 at 18:38; Status DC Lorazepam (Ativan) 0.125 mg BID PO Last administered on 09/24/16 19:19; Start 09/22/16 at 21:00; Stop 09/25/16 at 20:59 Quetiapine Fumarate (SEROquel) 25 mg QID PO Last administered on 09/25/16 19: 29; Start 09/22/16 at 21:00 Lorazepam (Ativan) 0.125 mg DAILY PO ; Start 09/26/16 at 09:00; Stop 09/29/16 at 08:59 Buspirone HCl (Buspar) 5 mg BID PO Last administered on 09/25/16 19:29; Start 09/24/16 at 21:00 Active Scripts Active Reported Seroquel (Quetiapine Fumarate) 25 Mg Tablet 25 Mg PO BID Lorazepam Intensol (Lorazepam) 2 Mg/1 Ml Oral.conc 0.25 Ml SL PRN TID PRN Voltaren (Diclofenac Sodium) 100 Gm Gel..gram. 1 Beck TP BID Lorazepam 0.5 Mg Tablet 0.25 Mg PO TID Melatin (Melatonin) 3 Mg Tablet 3 Mg PO QHS Metoprolol Succinate ( Xl ) (Metoprolol Succinate) 25 Mg Tab.er.24h 25 Mg PO BID Dilantin (Phenytoin Sodium Extended) 100 Mg Capsule 100 Mg PO BID Glucosamine Sulfate (Glucosamine Sulfate 2KCL) 1,000 Mg Tablet 1,000 Mg PO DAILY Aspirin 81 Mg Tab.chew 81 Mg PO DAILY Claritin (Loratadine) 10 Mg Tablet 10 Mg PO DAILY Diagnosis: Problems: (1) Dementia with behavioral disturbance (2) Anxiety disorder (3) Dementia in Alzheimer's disease with delusions (4) Dementia in Alzheimer's disease with depression (5) Dementia, vascular, with delusions (6) Dementia, vascular, with depression (7) Impulse control disorder NAKIA KO MD Sep 25, 2016 20:31
--- NOTE | 2016-09-25 20:54 | PDOC ---
Exam Dane Demential Exam: Dane Note: Please also refer to the separate dictated note~for this date of service dictated separately.~Patient seen individually. Discussed the patient with Nursing staff reviewed the chart.~Reviewed interim history and current functioning. Reviewed vital signs,~Labs/ Radiology~and current medications noted below. Continue current treatment with the changes noted in the dictated addendum note S/O: This is a late entry for September 20 covers elements not covered in my initial note. I met with the patient in the evening of September 20. She has been quite confused and delusional. In the morning of September 20, she was yelling, kicking at staff, put herself on the floor, receive Zyprexa at 9 a.m. then trying to sleep down on to the floor, refuse to medications, and later took it in chocolate pudding. Review of Systems: Ambulation impaired. No CV, , Pulmonary, Eye ENT system symptoms on review. Reliability poor. MSE: Oriented to herself. Insight, judgment, recent and remote memory, attention, concentration, and fund of knowledge are poor consistent with her diagnosis mentioned in my initial note. Plan: Continue current psychotropics. We may need to reduce Ativan further gradually. We may need to increase Seroquel as well, Zoloft is being increased. Valproic acid level is 27 at last check, but Depakote has been discontinued due to her gait disturbances. Assessment: Vital Signs: Vital Signs Date Time Temp Pulse Resp B/P (MAP) Pulse Ox O2 Delivery O2 Flow Rate FiO2 09/25/16 19:29 83 152/81 09/25/16 16:01 98.7 18 92 09/23/16 15:33 Room Air I&O Intake and Output 09/25/16 07:00 Intake Total 960 ml Balance 960 ml Intake Oral 960 ml Current Medications: Meds: Current Medications Acetaminophen (Tylenol) 650 mg PRN Q6HRS PRN PO PAIN / TEMP Last administered on 09/24/16t 14:18; Start 09/13/16 at 13:00 Multi-Ingredient Ointment (Analgesic [place]) 1 beck PRN QID PRN TP MUSCLE PAIN; Start 09/13/16 at 14:00 Al Hydroxide/Mg Hydroxide (Mylanta Plus Xs) 15 ml PRN AFTMEALHC PRN PO DYSPEPSIA; Start 09/13/16 at 14:00 Magnesium Hydroxide (Milk Of Magnesia) 2,400 mg PRN QHS PRN PO CONSTIPATION Last administered on 09/19/16 11:47; Start 09/13/16 at 14:00 Lorazepam (Ativan) 0.25 mg TID PO Last administered on 09/17/16 19:35; Start 09/13/16 at 21:00; Stop 09/17/16 at 22:21; Status DC Lorazepam (Ativan) 0.5 mg PRN TID PRN PO ANXIETY / AGITATION Last administered on 09/25/16 06:37; Start 09/13/16 at 16:00 Phenytoin Sodium (Dilantin) 100 mg BID PO Last administered on 09/25/16 19:29 ; Start 09/13/16 at 21:00 Quetiapine Fumarate (SEROquel) 25 mg BID PO Last administered on 09/16/16 09: 00; Start 09/13/16 at 21:00; Stop 09/16/16 at 18:14; Status DC Melatonin 3 mg HS PO Last administered on 09/25/16 19:29; Start 09/13/16 at 21: 00 Aspirin (Children'S Aspirin) 81 mg DAILY PO Last administered on 09/25/16 08: 09; Start 09/14/16 at 09:00 Diclofenac Sodium (Voltaren) 1 beck BID TP Last administered on 09/25/16 19:30 ; Start 09/13/16 at 21:00 Metoprolol Succinate (Toprol Xl) 25 mg BID PO Last administered on 09/25/16 19 :29; Start 09/13/16 at 21:00 Glucosamine Sulfate (Glucosamine) 1,000 mg DAILY PO Last administered on 08:08; Start 09/14/16 at 09:00 Cetirizine HCl (ZyrTEC) 10 mg DAILY PO Last administered on 09/25/16 08:08; Start 09/14/16 at 09:00 Olanzapine (ZyPREXA ZYDIS) 2.5 mg PRN Q4HRS PRN PO PSYCHOSIS Last administered on 09/22/16 12:53; Start 09/14/16 at 14:15 Divalproex Sodium (Depakote Sprinkles) 250 mg HS PO Last administered on 19:32; Start 09/15/16 at 21:00; Stop 09/19/16 at 18:12; Status DC Divalproex Sodium (Depakote Sprinkles) 125 mg BID92 PO Last administered on 13:53; Start 09/15/16 at 09:00; Stop 09/19/16 at 18:12; Status DC Vitamin D (Vitamin D3) 50,000 unit WEEKLY PO Last administered on 09/16/16 13: 26; Start 09/16/16 at 11:30 Quetiapine Fumarate (SEROquel) 25 mg BIDACBL PO ; Start 09/17/16 at 07:30; Stop 09/17/16 at 07:30; Status DC Quetiapine Fumarate (SEROquel) 12.5 mg NOON PO Last administered on 09/22/16 12:17; Start 09/17/16 at 12:00; Stop 09/22/16 at 18:38; Status DC Sertraline HCl (Zoloft) 25 mg DAILY PO Last administered on 09/18/16 08:06; Start 09/17/16 at 09:00; Stop 09/19/16 at 08:59; Status DC Sertraline HCl (Zoloft) 50 mg DAILY PO Last administered on 09/25/16 08:08; Start 09/19/16 at 09:00 Quetiapine Fumarate (SEROquel) 25 mg BID94 PO Last administered on 09/17/16 16 :15; Start 09/17/16 at 09:00; Stop 09/17/16 at 22:21; Status DC Lorazepam (Ativan) 0.125 mg TID PO Last administered on 09/22/16 14:18; Start 09/18/16 at 09:00; Stop 09/22/16 at 18:38; Status DC Quetiapine Fumarate (SEROquel) 25 mg TID PO Last administered on 09/22/16 14: 18; Start 09/18/16 at 09:00; Stop 09/22/16 at 18:38; Status DC Lorazepam (Ativan) 0.125 mg BID PO Last administered on 09/24/16 19:19; Start 09/22/16 at 21:00; Stop 09/25/16 at 20:59 Quetiapine Fumarate (SEROquel) 25 mg QID PO Last administered on 09/25/16 19: 29; Start 09/22/16 at 21:00 Lorazepam (Ativan) 0.125 mg DAILY PO ; Start 09/26/16 at 09:00; Stop 09/29/16 at 08:59 Buspirone HCl (Buspar) 5 mg BID PO Last administered on 09/25/16 19:29; Start 09/24/16 at 21:00 Active Scripts Active Reported Seroquel (Quetiapine Fumarate) 25 Mg Tablet 25 Mg PO BID Lorazepam Intensol (Lorazepam) 2 Mg/1 Ml Oral.conc 0.25 Ml SL PRN TID PRN Voltaren (Diclofenac Sodium) 100 Gm Gel..gram. 1 Beck TP BID Lorazepam 0.5 Mg Tablet 0.25 Mg PO TID Melatin (Melatonin) 3 Mg Tablet 3 Mg PO QHS Metoprolol Succinate ( Xl ) (Metoprolol Succinate) 25 Mg Tab.er.24h 25 Mg PO BID Dilantin (Phenytoin Sodium Extended) 100 Mg Capsule 100 Mg PO BID Glucosamine Sulfate (Glucosamine Sulfate 2KCL) 1,000 Mg Tablet 1,000 Mg PO DAILY Aspirin 81 Mg Tab.chew 81 Mg PO DAILY Claritin (Loratadine) 10 Mg Tablet 10 Mg PO DAILY NAKIA KO MD Sep 25, 2016 20:54
--- NOTE | 2016-09-25 21:25 | PDOC ---
Exam Dane Demential Exam: Dane Note: Please also refer to the separate dictated note~for this date of service dictated separately.~Patient seen individually. Discussed the patient with Nursing staff reviewed the chart.~Reviewed interim history and current functioning. Reviewed vital signs,~Labs/ Radiology~and current medications noted below. Continue current treatment with the changes noted in the dictated addendum note S/O: This is a late entry for date of service 09/22/2016. I met with the patient individually on evening of September 22, discussed with nursing staff, and reviewed the chart. This note covers elements not covered in my initial note. Last evening, she was quite anxious. Today, she has been restless, constantly moving, took her blanket, believed it was a baby, looking for her truck to go home. Review of Systems: No CV, , Pulmonary, Eye, ENT system symptoms on review. Reliability poor. MSE: Oriented to herself. Insight and judgment, recent and remote memory, attention and concentration, fund of knowledge poor consistent with her diagnosis mentioned in my initial note. Plan: Increase Seroquel to 25 mg four times a day. Reduce Ativan to 0.125 mg twice a day for three days then once a day for three days and stop. Continue rest of the psychotropics Zoloft, Zyprexa p.r.n., Dilantin 100 mg b.i.d., melatonin 3 mg h.s., Ativan p.r.n. Assessment: Vital Signs: Vital Signs Date Time Temp Pulse Resp B/P (MAP) Pulse Ox O2 Delivery O2 Flow Rate FiO2 09/25/16 19:29 83 152/81 09/25/16 16:01 98.7 18 92 09/23/16 15:33 Room Air I&O Intake and Output 09/25/16 07:00 Intake Total 960 ml Balance 960 ml Intake Oral 960 ml Current Medications: Meds: Current Medications Acetaminophen (Tylenol) 650 mg PRN Q6HRS PRN PO PAIN / TEMP Last administered on 09/24/16t 14:18; Start 09/13/16 at 13:00 Multi-Ingredient Ointment (Analgesic [place]) 1 beck PRN QID PRN TP MUSCLE PAIN; Start 09/13/16 at 14:00 Al Hydroxide/Mg Hydroxide (Mylanta Plus Xs) 15 ml PRN AFTMEALHC PRN PO DYSPEPSIA; Start 09/13/16 at 14:00 Magnesium Hydroxide (Milk Of Magnesia) 2,400 mg PRN QHS PRN PO CONSTIPATION Last administered on 09/19/16 11:47; Start 09/13/16 at 14:00 Lorazepam (Ativan) 0.25 mg TID PO Last administered on 09/17/16 19:35; Start 09/13/16 at 21:00; Stop 09/17/16 at 22:21; Status DC Lorazepam (Ativan) 0.5 mg PRN TID PRN PO ANXIETY / AGITATION Last administered on 09/25/16 06:37; Start 09/13/16 at 16:00 Phenytoin Sodium (Dilantin) 100 mg BID PO Last administered on 09/25/16 19:29 ; Start 09/13/16 at 21:00 Quetiapine Fumarate (SEROquel) 25 mg BID PO Last administered on 09/16/16 09: 00; Start 09/13/16 at 21:00; Stop 09/16/16 at 18:14; Status DC Melatonin 3 mg HS PO Last administered on 09/25/16 19:29; Start 09/13/16 at 21: 00 Aspirin (Children'S Aspirin) 81 mg DAILY PO Last administered on 09/25/16 08: 09; Start 09/14/16 at 09:00 Diclofenac Sodium (Voltaren) 1 beck BID TP Last administered on 09/25/16 19:30 ; Start 09/13/16 at 21:00 Metoprolol Succinate (Toprol Xl) 25 mg BID PO Last administered on 09/25/16 19 :29; Start 09/13/16 at 21:00 Glucosamine Sulfate (Glucosamine) 1,000 mg DAILY PO Last administered on 08:08; Start 09/14/16 at 09:00 Cetirizine HCl (ZyrTEC) 10 mg DAILY PO Last administered on 09/25/16 08:08; Start 09/14/16 at 09:00 Olanzapine (ZyPREXA ZYDIS) 2.5 mg PRN Q4HRS PRN PO PSYCHOSIS Last administered on 09/22/16 12:53; Start 09/14/16 at 14:15 Divalproex Sodium (Depakote Sprinkles) 250 mg HS PO Last administered on 19:32; Start 09/15/16 at 21:00; Stop 09/19/16 at 18:12; Status DC Divalproex Sodium (Depakote Sprinkles) 125 mg BID92 PO Last administered on 13:53; Start 09/15/16 at 09:00; Stop 09/19/16 at 18:12; Status DC Vitamin D (Vitamin D3) 50,000 unit WEEKLY PO Last administered on 09/16/16 13: 26; Start 09/16/16 at 11:30 Quetiapine Fumarate (SEROquel) 25 mg BIDACBL PO ; Start 09/17/16 at 07:30; Stop 09/17/16 at 07:30; Status DC Quetiapine Fumarate (SEROquel) 12.5 mg NOON PO Last administered on 09/22/16 12:17; Start 09/17/16 at 12:00; Stop 09/22/16 at 18:38; Status DC Sertraline HCl (Zoloft) 25 mg DAILY PO Last administered on 09/18/16 08:06; Start 09/17/16 at 09:00; Stop 09/19/16 at 08:59; Status DC Sertraline HCl (Zoloft) 50 mg DAILY PO Last administered on 09/25/16 08:08; Start 09/19/16 at 09:00 Quetiapine Fumarate (SEROquel) 25 mg BID94 PO Last administered on 09/17/16 16 :15; Start 09/17/16 at 09:00; Stop 09/17/16 at 22:21; Status DC Lorazepam (Ativan) 0.125 mg TID PO Last administered on 09/22/16 14:18; Start 09/18/16 at 09:00; Stop 09/22/16 at 18:38; Status DC Quetiapine Fumarate (SEROquel) 25 mg TID PO Last administered on 09/22/16 14: 18; Start 09/18/16 at 09:00; Stop 09/22/16 at 18:38; Status DC Lorazepam (Ativan) 0.125 mg BID PO Last administered on 09/24/16 19:19; Start 09/22/16 at 21:00; Stop 09/25/16 at 20:59; Status DC Quetiapine Fumarate (SEROquel) 25 mg QID PO Last administered on 09/25/16 19: 29; Start 09/22/16 at 21:00 Lorazepam (Ativan) 0.125 mg DAILY PO ; Start 09/26/16 at 09:00; Stop 09/29/16 at 08:59 Buspirone HCl (Buspar) 5 mg BID PO Last administered on 09/25/16 19:29; Start 09/24/16 at 21:00 Active Scripts Active Reported Seroquel (Quetiapine Fumarate) 25 Mg Tablet 25 Mg PO BID Lorazepam Intensol (Lorazepam) 2 Mg/1 Ml Oral.conc 0.25 Ml SL PRN TID PRN Voltaren (Diclofenac Sodium) 100 Gm Gel..gram. 1 Beck TP BID Lorazepam 0.5 Mg Tablet 0.25 Mg PO TID Melatin (Melatonin) 3 Mg Tablet 3 Mg PO QHS Metoprolol Succinate ( Xl ) (Metoprolol Succinate) 25 Mg Tab.er.24h 25 Mg PO BID Dilantin (Phenytoin Sodium Extended) 100 Mg Capsule 100 Mg PO BID Glucosamine Sulfate (Glucosamine Sulfate 2KCL) 1,000 Mg Tablet 1,000 Mg PO DAILY Aspirin 81 Mg Tab.chew 81 Mg PO DAILY Claritin (Loratadine) 10 Mg Tablet 10 Mg PO DAILY NAKIA KO MD Sep 25, 2016 21:25
[2016-09-26 05:38] VITALS: BP 128/56
[2016-09-26] MEDS: LORazepam 0.5 MG TABLET PO SCH ×2 (08:08→10:31)
[2016-09-26] MEDS: busPIRone 5 MG TABLET. PO SCH ×5 (08:09→19:43)
[2016-09-26] MEDS: GLUCOSAMINE 500 MG CAPSULE PO SCH ×2 (08:09→10:31)
[2016-09-26] MEDS: PHENYTOIN SODIUM EXTENDED 100 MG CAPSULE PO SCH ×3 (08:09→19:44)
[2016-09-26] MEDS: METOPROLOL SUCC 24HR ER 25 MG TAB.ER.24H. PO SCH ×3 (08:09→19:44)
[2016-09-26] MEDS: SERTRALINE 50 MG TABLET. PO SCH ×2 (08:10→10:32)
[2016-09-26] MEDS: ASPIRIN 81 MG TAB.CHEW PO SCH ×2 (08:10→10:31)
[2016-09-26] MEDS: DICLOFENAC SODIUM 1% TOPICAL GEL 100GM TUBE. TP SCH ×2 (08:10→19:45)
[2016-09-26] MEDS: CETIRIZINE HCL 10 MG TABLET PO SCH ×2 (08:10→10:32)
[2016-09-26] MEDS: QUEtiapine 25 MG TABLET. PO SCH ×5 (08:10→19:44)
[2016-09-26 16:05] VITALS: BP 139/76
[2016-09-26] MEDS: MELATONIN 3 MG TABLET PO SCH (19:44)
--- NOTE | 2016-09-26 20:08 | PDOC ---
Exam Dane Demential Exam: Dane Note: Please also refer to the separate dictated note~for this date of service dictated separately.~Patient seen individually. Discussed the patient with Nursing staff reviewed the chart.~Reviewed interim history and current functioning. Reviewed vital signs,~Labs/ Radiology~and current medications noted below. Continue current treatment with the changes noted in the dictated addendum note Assessment: Vital Signs: Vital Signs Date Time Temp Pulse Resp B/P (MAP) Pulse Ox O2 Delivery O2 Flow Rate FiO2 09/26/16 19:44 71 139/76 09/26/16 16:05 98.7 18 99 09/23/16 15:33 Room Air I&O Intake and Output 09/26/16 07:00 Intake Total 840 ml Balance 840 ml Intake Oral 840 ml Current Medications: Meds: Current Medications Acetaminophen (Tylenol) 650 mg PRN Q6HRS PRN PO PAIN / TEMP Last administered on 09/24/16 14:18; Start 09/13/16 at 13:00 Multi-Ingredient Ointment (Analgesic [place]) 1 beck PRN QID PRN TP MUSCLE PAIN; Start 09/13/16 at 14:00 Al Hydroxide/Mg Hydroxide (Mylanta Plus Xs) 15 ml PRN AFTMEALHC PRN PO DYSPEPSIA; Start 09/13/16 at 14:00 Magnesium Hydroxide (Milk Of Magnesia) 2,400 mg PRN QHS PRN PO CONSTIPATION Last administered on 09/19/16 11:47; Start 09/13/16 at 14:00 Lorazepam (Ativan) 0.25 mg TID PO Last administered on 09/17/16 19:35; Start 09/13/16 at 21:00; Stop 09/17/16 at 22:21; Status DC Lorazepam (Ativan) 0.5 mg PRN TID PRN PO ANXIETY / AGITATION Last administered on 09/25/16 06:37; Start 09/13/16 at 16:00 Phenytoin Sodium (Dilantin) 100 mg BID PO Last administered on 09/26/16 19:44 ; Start 09/13/16 at 21:00 Quetiapine Fumarate (SEROquel) 25 mg BID PO Last administered on 09/16/16 09: 00; Start 09/13/16 at 21:00; Stop 09/16/16 at 18:14; Status DC Melatonin 3 mg HS PO Last administered on 09/26/16 19:44; Start 09/13/16 at 21: 00 Aspirin (Children'S Aspirin) 81 mg DAILY PO Last administered on 09/25/16 08: 09; Start 09/14/16 at 09:00 Diclofenac Sodium (Voltaren) 1 beck BID TP Last administered on 09/26/16 19:45 ; Start 09/13/16 at 21:00 Metoprolol Succinate (Toprol Xl) 25 mg BID PO Last administered on 09/26/16 19 :44; Start 09/13/16 at 21:00 Glucosamine Sulfate (Glucosamine) 1,000 mg DAILY PO Last administered on 08:08; Start 09/14/16 at 09:00 Cetirizine HCl (ZyrTEC) 10 mg DAILY PO Last administered on 09/25/16 08:08; Start 09/14/16 at 09:00 Olanzapine (ZyPREXA ZYDIS) 2.5 mg PRN Q4HRS PRN PO PSYCHOSIS Last administered on 09/22/16 12:53; Start 09/14/16 at 14:15 Divalproex Sodium (Depakote Sprinkles) 250 mg HS PO Last administered on 19:32; Start 09/15/16 at 21:00; Stop 09/19/16 at 18:12; Status DC Divalproex Sodium (Depakote Sprinkles) 125 mg BID92 PO Last administered on 13:53; Start 09/15/16 at 09:00; Stop 09/19/16 at 18:12; Status DC Vitamin D (Vitamin D3) 50,000 unit WEEKLY PO Last administered on 09/16/16 13: 26; Start 09/16/16 at 11:30 Quetiapine Fumarate (SEROquel) 25 mg BIDACBL PO ; Start 09/17/16 at 07:30; Stop 09/17/16 at 07:30; Status DC Quetiapine Fumarate (SEROquel) 12.5 mg NOON PO Last administered on 09/22/16 12:17; Start 09/17/16 at 12:00; Stop 09/22/16 at 18:38; Status DC Sertraline HCl (Zoloft) 25 mg DAILY PO Last administered on 09/18/16 08:06; Start 09/17/16 at 09:00; Stop 09/19/16 at 08:59; Status DC Sertraline HCl (Zoloft) 50 mg DAILY PO Last administered on 09/25/16 08:08; Start 09/19/16 at 09:00 Quetiapine Fumarate (SEROquel) 25 mg BID94 PO Last administered on 09/17/16 16 :15; Start 09/17/16 at 09:00; Stop 09/17/16 at 22:21; Status DC Lorazepam (Ativan) 0.125 mg TID PO Last administered on 09/22/16 14:18; Start 09/18/16 at 09:00; Stop 09/22/16 at 18:38; Status DC Quetiapine Fumarate (SEROquel) 25 mg TID PO Last administered on 09/22/16 14: 18; Start 09/18/16 at 09:00; Stop 09/22/16 at 18:38; Status DC Lorazepam (Ativan) 0.125 mg BID PO Last administered on 09/24/16 19:19; Start 09/22/16 at 21:00; Stop 09/25/16 at 20:59; Status DC Quetiapine Fumarate (SEROquel) 25 mg QID PO Last administered on 09/26/16 19: 44; Start 09/22/16 at 21:00 Lorazepam (Ativan) 0.125 mg DAILY PO ; Start 09/26/16 at 09:00; Stop 09/29/16 at 08:59 Buspirone HCl (Buspar) 5 mg BID PO Last administered on 09/25/16 19:29; Start 09/24/16 at 21:00; Stop 09/26/16 at 10:34; Status DC Buspirone HCl (Buspar) 5 mg QID PO Last administered on 09/26/16 19:43; Start 09/26/16 at 13:00 Active Scripts Active Reported Seroquel (Quetiapine Fumarate) 25 Mg Tablet 25 Mg PO BID Lorazepam Intensol (Lorazepam) 2 Mg/1 Ml Oral.conc 0.25 Ml SL PRN TID PRN Voltaren (Diclofenac Sodium) 100 Gm Gel..gram. 1 Beck TP BID Lorazepam 0.5 Mg Tablet 0.25 Mg PO TID Melatin (Melatonin) 3 Mg Tablet 3 Mg PO QHS Metoprolol Succinate ( Xl ) (Metoprolol Succinate) 25 Mg Tab.er.24h 25 Mg PO BID Dilantin (Phenytoin Sodium Extended) 100 Mg Capsule 100 Mg PO BID Glucosamine Sulfate (Glucosamine Sulfate 2KCL) 1,000 Mg Tablet 1,000 Mg PO DAILY Aspirin 81 Mg Tab.chew 81 Mg PO DAILY Claritin (Loratadine) 10 Mg Tablet 10 Mg PO DAILY Diagnosis: Problems: (1) Dementia with behavioral disturbance (2) Anxiety disorder (3) Dementia in Alzheimer's disease with delusions (4) Dementia in Alzheimer's disease with depression (5) Dementia, vascular, with delusions (6) Dementia, vascular, with depression (7) Impulse control disorder NAKIA KO MD Sep 26, 2016 20:08
--- NOTE | 2016-09-26 21:09 | PDOC ---
Exam Dane Demential Exam: Dane Note: Please also refer to the separate dictated note~for this date of service dictated separately.~Patient seen individually. Discussed the patient with Nursing staff reviewed the chart.~Reviewed interim history and current functioning. Reviewed vital signs,~Labs/ Radiology~and current medications noted below. Continue current treatment with the changes noted in the dictated addendum note S/O: This is a late entry on September 23 covers elements not covered in my initial note. Per nursing report between 1 and 2 p.m., the patient becomes extremely anxious, restless, constantly moving, unable to sit still and does better. Review of systems: No CV, , Pulmonary, Eye, ENT system symptoms on review. Reliability poor. MSE: Oriented to herself. Insight, judgment, recent and remote memory, attention, concentration, and fund of knowledge are poor consistent with her diagnoses mentioned in my initial note. Plan: Continued current psychotropics. Seroquel was adjusted yesterday. We will not make any further change today, observe and then decide. Ativan is being tapered. Assessment: Vital Signs: Vital Signs Date Time Temp Pulse Resp B/P (MAP) Pulse Ox O2 Delivery O2 Flow Rate FiO2 09/26/16 19:44 71 139/76 09/26/16 16:05 98.7 18 99 09/23/16 15:33 Room Air I&O Intake and Output 09/26/16 07:00 Intake Total 840 ml Balance 840 ml Intake Oral 840 ml Current Medications: Meds: Current Medications Acetaminophen (Tylenol) 650 mg PRN Q6HRS PRN PO PAIN / TEMP Last administered on 09/24/16 14:18; Start 09/13/16 at 13:00 Multi-Ingredient Ointment (Analgesic [place]) 1 beck PRN QID PRN TP MUSCLE PAIN; Start 09/13/16 at 14:00 Al Hydroxide/Mg Hydroxide (Mylanta Plus Xs) 15 ml PRN AFTMEALHC PRN PO DYSPEPSIA; Start 09/13/16 at 14:00 Magnesium Hydroxide (Milk Of Magnesia) 2,400 mg PRN QHS PRN PO CONSTIPATION Last administered on 09/19/16 11:47; Start 09/13/16 at 14:00 Lorazepam (Ativan) 0.25 mg TID PO Last administered on 09/17/16 19:35; Start 09/13/16 at 21:00; Stop 09/17/16 at 22:21; Status DC Lorazepam (Ativan) 0.5 mg PRN TID PRN PO ANXIETY / AGITATION Last administered on 09/25/16 06:37; Start 09/13/16 at 16:00 Phenytoin Sodium (Dilantin) 100 mg BID PO Last administered on 09/26/16 19:44 ; Start 09/13/16 at 21:00 Quetiapine Fumarate (SEROquel) 25 mg BID PO Last administered on 09/16/16 09: 00; Start 09/13/16 at 21:00; Stop 09/16/16 at 18:14; Status DC Melatonin 3 mg HS PO Last administered on 09/26/16 19:44; Start 09/13/16 at 21: 00 Aspirin (Children'S Aspirin) 81 mg DAILY PO Last administered on 09/25/16 08: 09; Start 09/14/16 at 09:00 Diclofenac Sodium (Voltaren) 1 beck BID TP Last administered on 09/26/16 19:45 ; Start 09/13/16 at 21:00 Metoprolol Succinate (Toprol Xl) 25 mg BID PO Last administered on 09/26/16 19 :44; Start 09/13/16 at 21:00 Glucosamine Sulfate (Glucosamine) 1,000 mg DAILY PO Last administered on 08:08; Start 09/14/16 at 09:00 Cetirizine HCl (ZyrTEC) 10 mg DAILY PO Last administered on 09/25/16 08:08; Start 09/14/16 at 09:00 Olanzapine (ZyPREXA ZYDIS) 2.5 mg PRN Q4HRS PRN PO PSYCHOSIS Last administered on 09/22/16 12:53; Start 09/14/16 at 14:15 Divalproex Sodium (Depakote Sprinkles) 250 mg HS PO Last administered on 19:32; Start 09/15/16 at 21:00; Stop 09/19/16 at 18:12; Status DC Divalproex Sodium (Depakote Sprinkles) 125 mg BID92 PO Last administered on 13:53; Start 09/15/16 at 09:00; Stop 09/19/16 at 18:12; Status DC Vitamin D (Vitamin D3) 50,000 unit WEEKLY PO Last administered on 09/16/16 13: 26; Start 09/16/16 at 11:30 Quetiapine Fumarate (SEROquel) 25 mg BIDACBL PO ; Start 09/17/16 at 07:30; Stop 09/17/16 at 07:30; Status DC Quetiapine Fumarate (SEROquel) 12.5 mg NOON PO Last administered on 09/22/16 12:17; Start 09/17/16 at 12:00; Stop 09/22/16 at 18:38; Status DC Sertraline HCl (Zoloft) 25 mg DAILY PO Last administered on 09/18/16 08:06; Start 09/17/16 at 09:00; Stop 09/19/16 at 08:59; Status DC Sertraline HCl (Zoloft) 50 mg DAILY PO Last administered on 09/25/16 08:08; Start 09/19/16 at 09:00 Quetiapine Fumarate (SEROquel) 25 mg BID94 PO Last administered on 09/17/16 16 :15; Start 09/17/16 at 09:00; Stop 09/17/16 at 22:21; Status DC Lorazepam (Ativan) 0.125 mg TID PO Last administered on 09/22/16 14:18; Start 09/18/16 at 09:00; Stop 09/22/16 at 18:38; Status DC Quetiapine Fumarate (SEROquel) 25 mg TID PO Last administered on 09/22/16 14: 18; Start 09/18/16 at 09:00; Stop 09/22/16 at 18:38; Status DC Lorazepam (Ativan) 0.125 mg BID PO Last administered on 09/24/16 19:19; Start 09/22/16 at 21:00; Stop 09/25/16 at 20:59; Status DC Quetiapine Fumarate (SEROquel) 25 mg QID PO Last administered on 09/26/16 19: 44; Start 09/22/16 at 21:00 Lorazepam (Ativan) 0.125 mg DAILY PO ; Start 09/26/16 at 09:00; Stop 09/29/16 at 08:59 Buspirone HCl (Buspar) 5 mg BID PO Last administered on 09/25/16 19:29; Start 09/24/16 at 21:00; Stop 09/26/16 at 10:34; Status DC Buspirone HCl (Buspar) 5 mg QID PO Last administered on 09/26/16 19:43; Start 09/26/16 at 13:00 Active Scripts Active Reported Seroquel (Quetiapine Fumarate) 25 Mg Tablet 25 Mg PO BID Lorazepam Intensol (Lorazepam) 2 Mg/1 Ml Oral.conc 0.25 Ml SL PRN TID PRN Voltaren (Diclofenac Sodium) 100 Gm Gel..gram. 1 Beck TP BID Lorazepam 0.5 Mg Tablet 0.25 Mg PO TID Melatin (Melatonin) 3 Mg Tablet 3 Mg PO QHS Metoprolol Succinate ( Xl ) (Metoprolol Succinate) 25 Mg Tab.er.24h 25 Mg PO BID Dilantin (Phenytoin Sodium Extended) 100 Mg Capsule 100 Mg PO BID Glucosamine Sulfate (Glucosamine Sulfate 2KCL) 1,000 Mg Tablet 1,000 Mg PO DAILY Aspirin 81 Mg Tab.chew 81 Mg PO DAILY Claritin (Loratadine) 10 Mg Tablet 10 Mg PO DAILY NAKIA KO MD Sep 26, 2016 21:09
[2016-09-27 06:29] VITALS: BP 128/68
[2016-09-27] MEDS: QUEtiapine 25 MG TABLET. PO SCH ×4 (08:42→19:50)
[2016-09-27] MEDS: busPIRone 5 MG TABLET. PO SCH ×4 (08:43→19:50)
[2016-09-27] MEDS: GLUCOSAMINE 500 MG CAPSULE PO SCH (08:43)
[2016-09-27] MEDS: CETIRIZINE HCL 10 MG TABLET PO SCH (08:43)
[2016-09-27] MEDS: PHENYTOIN SODIUM EXTENDED 100 MG CAPSULE PO SCH ×2 (08:43→19:49)
[2016-09-27] MEDS: ASPIRIN 81 MG TAB.CHEW PO SCH (08:43)
[2016-09-27] MEDS: SERTRALINE 50 MG TABLET. PO SCH (08:43)
[2016-09-27] MEDS: METOPROLOL SUCC 24HR ER 25 MG TAB.ER.24H. PO SCH ×2 (08:44→19:50)
[2016-09-27] MEDS: DICLOFENAC SODIUM 1% TOPICAL GEL 100GM TUBE. TP SCH ×2 (08:45→19:53)
[2016-09-27] MEDS: DIVALPROEX 125 MG CAP.SPRINK PO SCH ×2 (08:53→13:56)
[2016-09-27] MEDS: LORazepam 0.5 MG TABLET PO SCH (08:53)
[2016-09-27 09:47] LABS: BASO % 1 % (0-3); EOS # 0.2 x10^3/uL (0.0-0.7); EOS % 3 % (0-3); HEMATOCRIT 32.7 % (36.0-47.0); HEMOGLOBIN 11.1 g/dL (12.0-15.5); LYMPH # 1.4 x10^3/uL (1.0-4.8); LYMPH % 22 % (24-48); MEAN CORPUSCULAR HEMOGLOBIN 31 pg (25-35); MEAN CORPUSCULAR HGB CONC 34 g/dL (31-37); MEAN CORPUSCULAR VOLUME 91 fL (79-100); MONO # 0.5 x10^3/uL (0.0-1.1); MONO % 8 % (0-9); NEUT # 4.2 x10^3uL (1.8-7.7); NEUT % 66 % (31-73); PLATELET COUNT 274 x10^3/uL (140-400); RED BLOOD COUNT 3.59 x10^6/uL (3.50-5.40); RED CELL DISTRIBUTION WIDTH 14.4 % (11.5-14.5); WHITE BLOOD COUNT 6.3 x10^3/uL (4.0-11.0)
[2016-09-27 10:02] LABS: ALBUMIN 3.7 g/dL (3.4-5.0); CALCIUM 8.9 mg/dL (8.5-10.1); GFR 52.7; POTASSIUM 3.3 mmol/L (3.5-5.1); TOTAL BILIRUBIN 0.5 mg/dL (0.2-1.0); TOTAL PROTEIN 7.3 g/dL (6.4-8.2)
[2016-09-27 15:54] VITALS: BP 145/86
[2016-09-27] MEDS: MELATONIN 3 MG TABLET PO SCH (19:49)
--- NOTE | 2016-09-27 22:00 | PDOC ---
Exam Dane Demential Exam: Dane Note: Please also refer to the separate dictated note~for this date of service dictated separately.~Patient seen individually. Discussed the patient with Nursing staff reviewed the chart.~Reviewed interim history and current functioning. Reviewed vital signs,~Labs/ Radiology~and current medications noted below. Continue current treatment with the changes noted in the dictated addendum note Assessment: Vital Signs: Vital Signs Date Time Temp Pulse Resp B/P (MAP) Pulse Ox O2 Delivery O2 Flow Rate FiO2 09/27/16 19:50 68 145/86 09/27/16 15:54 97.0 20 98 09/23/16 15:33 Room Air I&O Intake and Output 09/27/16 07:00 Intake Total 600 ml Balance 600 ml Intake Oral 600 ml Labs: Laboratory Tests Test 09/27/16 09:35 White Blood Count 6.3 x10^3/uL (4.0-11.0) Red Blood Count 3.59 x10^6/uL (3.50-5.40) Hemoglobin 11.1 g/dL (12.0-15.5) L Hematocrit 32.7 % (36.0-47.0) L Mean Corpuscular Volume 91 fL (79-100) Mean Corpuscular Hemoglobin 31 pg (25-35) Mean Corpuscular Hemoglobin Concent 34 g/dL (31-37) Red Cell Distribution Width 14.4 % (11.5-14.5) Platelet Count 274 x10^3/uL (140-400) Neutrophils (%) (Auto) 66 % (31-73) Lymphocytes (%) (Auto) 22 % (24-48) L Monocytes (%) (Auto) 8 % (0-9) Eosinophils (%) (Auto) 3 % (0-3) Basophils (%) (Auto) 1 % (0-3) Neutrophils # (Auto) 4.2 x10^3uL (1.8-7.7) Lymphocytes # (Auto) 1.4 x10^3/uL (1.0-4.8) Monocytes # (Auto) 0.5 x10^3/uL (0.0-1.1) Eosinophils # (Auto) 0.2 x10^3/uL (0.0-0.7) Basophils # (Auto) 0.0 x10^3/uL (0.0-0.2) Sodium Level 142 mmol/L (136-145) Potassium Level 3.3 mmol/L (3.5-5.1) L Chloride Level 108 mmol/L (98-107) H Carbon Dioxide Level 25 mmol/L (21-32) Anion Gap 9 (6-14) Blood Urea Nitrogen 18 mg/dL (7-20) Creatinine 1.0 mg/dL (0.6-1.0) Estimated GFR (Cockcroft-Gault) 52.7 BUN/Creatinine Ratio 18 (6-20) Glucose Level 108 mg/dL (70-99) H Calcium Level 8.9 mg/dL (8.5-10.1) Magnesium Level 2.0 mg/dL (1.8-2.4) Total Bilirubin 0.5 mg/dL (0.2-1.0) Aspartate Amino Transferase (AST) 30 U/L (15-37) Alanine Aminotransferase (ALT) 36 U/L (14-59) Alkaline Phosphatase 159 U/L (46-116) H Total Protein 7.3 g/dL (6.4-8.2) Albumin 3.7 g/dL (3.4-5.0) Albumin/Globulin Ratio 1.0 (1.0-1.7) Current Medications: Meds: Current Medications Acetaminophen (Tylenol) 650 mg PRN Q6HRS PRN PO PAIN / TEMP Last administered on 09/24/16 14:18; Start 09/13/16 at 13:00 Multi-Ingredient Ointment (Analgesic [place]) 1 beck PRN QID PRN TP MUSCLE PAIN; Start 09/13/16 at 14:00 Al Hydroxide/Mg Hydroxide (Mylanta Plus Xs) 15 ml PRN AFTMEALHC PRN PO DYSPEPSIA; Start 09/13/16 at 14:00 Magnesium Hydroxide (Milk Of Magnesia) 2,400 mg PRN QHS PRN PO CONSTIPATION Last administered on 09/19/16 11:47; Start 09/13/16 at 14:00 Lorazepam (Ativan) 0.25 mg TID PO Last administered on 09/17/16 19:35; Start 09/13/16 at 21:00; Stop 09/17/16 at 22:21; Status DC Lorazepam (Ativan) 0.5 mg PRN TID PRN PO ANXIETY / AGITATION Last administered on 09/25/16 06:37; Start 09/13/16 at 16:00 Phenytoin Sodium (Dilantin) 100 mg BID PO Last administered on 09/27/16 19:49 ; Start 09/13/16 at 21:00 Quetiapine Fumarate (SEROquel) 25 mg BID PO Last administered on 09/16/16 09: 00; Start 09/13/16 at 21:00; Stop 09/16/16 at 18:14; Status DC Melatonin 3 mg HS PO Last administered on 09/27/16 19:49; Start 09/13/16 at 21: 00 Aspirin (Children'S Aspirin) 81 mg DAILY PO Last administered on 09/27/16 08: 43; Start 09/14/16 at 09:00 Diclofenac Sodium (Voltaren) 1 beck BID TP Last administered on 09/27/16 19:53 ; Start 09/13/16 at 21:00 Metoprolol Succinate (Toprol Xl) 25 mg BID PO Last administered on 09/27/16 19 :50; Start 09/13/16 at 21:00 Glucosamine Sulfate (Glucosamine) 1,000 mg DAILY PO Last administered on 08:43; Start 09/14/16 at 09:00 Cetirizine HCl (ZyrTEC) 10 mg DAILY PO Last administered on 09/27/16 08:43; Start 09/14/16 at 09:00 Olanzapine (ZyPREXA ZYDIS) 2.5 mg PRN Q4HRS PRN PO PSYCHOSIS Last administered on 09/22/16 12:53; Start 09/14/16 at 14:15 Divalproex Sodium (Depakote Sprinkles) 250 mg HS PO Last administered on 19:32; Start 09/15/16 at 21:00; Stop 09/19/16 at 18:12; Status DC Divalproex Sodium (Depakote Sprinkles) 125 mg BID92 PO Last administered on 13:53; Start 09/15/16 at 09:00; Stop 09/19/16 at 18:12; Status DC Vitamin D (Vitamin D3) 50,000 unit WEEKLY PO Last administered on 09/16/16 13: 26; Start 09/16/16 at 11:30 Quetiapine Fumarate (SEROquel) 25 mg BIDACBL PO ; Start 09/17/16 at 07:30; Stop 09/17/16 at 07:30; Status DC Quetiapine Fumarate (SEROquel) 12.5 mg NOON PO Last administered on 09/22/16 12:17; Start 09/17/16 at 12:00; Stop 09/22/16 at 18:38; Status DC Sertraline HCl (Zoloft) 25 mg DAILY PO Last administered on 09/18/16 08:06; Start 09/17/16 at 09:00; Stop 09/19/16 at 08:59; Status DC Sertraline HCl (Zoloft) 50 mg DAILY PO Last administered on 09/27/16 08:43; Start 09/19/16 at 09:00 Quetiapine Fumarate (SEROquel) 25 mg BID94 PO Last administered on 09/17/16 16 :15; Start 09/17/16 at 09:00; Stop 09/17/16 at 22:21; Status DC Lorazepam (Ativan) 0.125 mg TID PO Last administered on 09/22/16 14:18; Start 09/18/16 at 09:00; Stop 09/22/16 at 18:38; Status DC Quetiapine Fumarate (SEROquel) 25 mg TID PO Last administered on 09/22/16 14: 18; Start 09/18/16 at 09:00; Stop 09/22/16 at 18:38; Status DC Lorazepam (Ativan) 0.125 mg BID PO Last administered on 09/24/16 19:19; Start 09/22/16 at 21:00; Stop 09/25/16 at 20:59; Status DC Quetiapine Fumarate (SEROquel) 25 mg QID PO Last administered on 09/27/16 19: 50; Start 09/22/16 at 21:00 Lorazepam (Ativan) 0.125 mg DAILY PO Last administered on 09/27/16 08:53; Start 09/26/16 at 09:00; Stop 09/29/16 at 08:59 Buspirone HCl (Buspar) 5 mg BID PO Last administered on 09/25/16 19:29; Start 09/24/16 at 21:00; Stop 09/26/16 at 10:34; Status DC Buspirone HCl (Buspar) 5 mg QID PO Last administered on 09/27/16 19:50; Start 09/26/16 at 13:00 Divalproex Sodium (Depakote Sprinkles) 125 mg BID92 PO Last administered on 13:56; Start 09/27/16 at 09:00 Active Scripts Active Reported Seroquel (Quetiapine Fumarate) 25 Mg Tablet 25 Mg PO BID Lorazepam Intensol (Lorazepam) 2 Mg/1 Ml Oral.conc 0.25 Ml SL PRN TID PRN Voltaren (Diclofenac Sodium) 100 Gm Gel..gram. 1 Beck TP BID Lorazepam 0.5 Mg Tablet 0.25 Mg PO TID Melatin (Melatonin) 3 Mg Tablet 3 Mg PO QHS Metoprolol Succinate ( Xl ) (Metoprolol Succinate) 25 Mg Tab.er.24h 25 Mg PO BID Dilantin (Phenytoin Sodium Extended) 100 Mg Capsule 100 Mg PO BID Glucosamine Sulfate (Glucosamine Sulfate 2KCL) 1,000 Mg Tablet 1,000 Mg PO DAILY Aspirin 81 Mg Tab.chew 81 Mg PO DAILY Claritin (Loratadine) 10 Mg Tablet 10 Mg PO DAILY Diagnosis: Problems: (1) Dementia with behavioral disturbance (2) Anxiety disorder (3) Dementia in Alzheimer's disease with delusions (4) Dementia in Alzheimer's disease with depression (5) Dementia, vascular, with delusions (6) Dementia, vascular, with depression (7) Impulse control disorder NAKIA KO MD Sep 27, 2016 22:00
--- NOTE | 2016-09-27 22:12 | PN ---
DATE: 09/26/2016 This note covers the elements not covered in my initial note of 09/26/2016. SUBJECTIVE: The patient was staffed at a treatment team meeting with the entire team on the morning of 09/26/2016 and reviewed the patient's diagnosis, progress, current psychotropics and seen individually on evening of 09/26/2016. Slept 7-3/4 hours, confused, interactive at times, exit seeking with another demented patient, tearful with marked mood lability. REVIEW OF SYSTEMS: No CV, , eye, ENT or pulmonary system symptoms on review. Refusing her medications. MENTAL STATUS EXAM: Oriented to herself. Insight, judgment, recent and remote memory, attention, concentration, fund of knowledge poor, consistent with her diagnosis mentioned in my initial note. PLAN: Increase BuSpar from 5 mg twice a day to 4 times a day. Continue the rest of the psychotropics. We will go ahead and start Depakote Sprinkles 125 mg twice a day. Follow labs and a valproic acid level. Adjust further as clinically indicated. MAN Leandro KO MD DR: [email or web address] JOB#: [id number] / [id number]
[2016-09-28 05:56] VITALS: BP 148/83
[2016-09-28] MEDS: ASPIRIN 81 MG TAB.CHEW PO SCH (08:05)
[2016-09-28] MEDS: SERTRALINE 50 MG TABLET. PO SCH (08:05)
[2016-09-28] MEDS: GLUCOSAMINE 500 MG CAPSULE PO SCH (08:05)
[2016-09-28] MEDS: busPIRone 5 MG TABLET. PO SCH ×4 (08:05→19:26)
[2016-09-28] MEDS: METOPROLOL SUCC 24HR ER 25 MG TAB.ER.24H. PO SCH ×2 (08:05→19:27)
[2016-09-28] MEDS: PHENYTOIN SODIUM EXTENDED 100 MG CAPSULE PO SCH ×2 (08:06→19:27)
[2016-09-28] MEDS: QUEtiapine 25 MG TABLET. PO SCH ×4 (08:06→19:26)
[2016-09-28] MEDS: CETIRIZINE HCL 10 MG TABLET PO SCH (08:06)
[2016-09-28] MEDS: DIVALPROEX 125 MG CAP.SPRINK PO SCH ×2 (08:06→13:18)
[2016-09-28] MEDS: DICLOFENAC SODIUM 1% TOPICAL GEL 100GM TUBE. TP SCH ×2 (08:07→20:47)
[2016-09-28] MEDS: LORazepam 0.5 MG TABLET PO SCH (08:08)
--- NOTE | 2016-09-28 11:50 | PDOC ---
Exam Dane Demential Exam: Dane Note: Please also refer to the separate dictated note~for this date of service dictated separately.~Patient seen individually. Discussed the patient with Nursing staff reviewed the chart.~Reviewed interim history and current functioning. Reviewed vital signs,~Labs/ Radiology~and current medications noted below. Continue current treatment with the changes noted in the dictated addendum note Assessment: Vital Signs: Vital Signs Date Time Temp Pulse Resp B/P (MAP) Pulse Ox O2 Delivery O2 Flow Rate FiO2 09/28/16 08:05 66 148/83 09/28/16 05:56 98.8 16 98 09/23/16 15:33 Room Air I&O Intake and Output 09/28/16 07:00 Intake Total 880 ml Balance 880 ml Intake Oral 880 ml Current Medications: Meds: Current Medications Acetaminophen (Tylenol) 650 mg PRN Q6HRS PRN PO PAIN / TEMP Last administered on 09/24/16 14:18; Start 09/13/16 at 13:00 Multi-Ingredient Ointment (Analgesic [place]) 1 beck PRN QID PRN TP MUSCLE PAIN; Start 09/13/16 at 14:00 Al Hydroxide/Mg Hydroxide (Mylanta Plus Xs) 15 ml PRN AFTMEALHC PRN PO DYSPEPSIA; Start 09/13/16 at 14:00 Magnesium Hydroxide (Milk Of Magnesia) 2,400 mg PRN QHS PRN PO CONSTIPATION Last administered on 09/19/16 11:47; Start 09/13/16 at 14:00 Lorazepam (Ativan) 0.25 mg TID PO Last administered on 09/17/16 19:35; Start 09/13/16 at 21:00; Stop 09/17/16 at 22:21; Status DC Lorazepam (Ativan) 0.5 mg PRN TID PRN PO ANXIETY / AGITATION Last administered on 09/25/16 06:37; Start 09/13/16 at 16:00 Phenytoin Sodium (Dilantin) 100 mg BID PO Last administered on 09/28/16 08:06 ; Start 09/13/16 at 21:00 Quetiapine Fumarate (SEROquel) 25 mg BID PO Last administered on 09/16/16 09: 00; Start 09/13/16 at 21:00; Stop 09/16/16 at 18:14; Status DC Melatonin 3 mg HS PO Last administered on 09/27/16 19:49; Start 09/13/16 at 21: 00 Aspirin (Children'S Aspirin) 81 mg DAILY PO Last administered on 09/28/16 08: 05; Start 09/14/16 at 09:00 Diclofenac Sodium (Voltaren) 1 beck BID TP Last administered on 09/28/16 08:07 ; Start 09/13/16 at 21:00 Metoprolol Succinate (Toprol Xl) 25 mg BID PO Last administered on 09/28/16 08 :05; Start 09/13/16 at 21:00 Glucosamine Sulfate (Glucosamine) 1,000 mg DAILY PO Last administered on 08:05; Start 09/14/16 at 09:00 Cetirizine HCl (ZyrTEC) 10 mg DAILY PO Last administered on 09/28/16 08:06; Start 09/14/16 at 09:00 Olanzapine (ZyPREXA ZYDIS) 2.5 mg PRN Q4HRS PRN PO PSYCHOSIS Last administered on 09/22/16 12:53; Start 09/14/16 at 14:15 Divalproex Sodium (Depakote Sprinkles) 250 mg HS PO Last administered on 19:32; Start 09/15/16 at 21:00; Stop 09/19/16 at 18:12; Status DC Divalproex Sodium (Depakote Sprinkles) 125 mg BID92 PO Last administered on 13:53; Start 09/15/16 at 09:00; Stop 09/19/16 at 18:12; Status DC Vitamin D (Vitamin D3) 50,000 unit WEEKLY PO Last administered on 09/16/16 13: 26; Start 09/16/16 at 11:30 Quetiapine Fumarate (SEROquel) 25 mg BIDACBL PO ; Start 09/17/16 at 07:30; Stop 09/17/16 at 07:30; Status DC Quetiapine Fumarate (SEROquel) 12.5 mg NOON PO Last administered on 09/22/16 12:17; Start 09/17/16 at 12:00; Stop 09/22/16 at 18:38; Status DC Sertraline HCl (Zoloft) 25 mg DAILY PO Last administered on 09/18/16 08:06; Start 09/17/16 at 09:00; Stop 09/19/16 at 08:59; Status DC Sertraline HCl (Zoloft) 50 mg DAILY PO Last administered on 09/28/16 08:05; Start 09/19/16 at 09:00 Quetiapine Fumarate (SEROquel) 25 mg BID94 PO Last administered on 09/17/16 16 :15; Start 09/17/16 at 09:00; Stop 09/17/16 at 22:21; Status DC Lorazepam (Ativan) 0.125 mg TID PO Last administered on 09/22/16 14:18; Start 09/18/16 at 09:00; Stop 09/22/16 at 18:38; Status DC Quetiapine Fumarate (SEROquel) 25 mg TID PO Last administered on 09/22/16 14: 18; Start 09/18/16 at 09:00; Stop 09/22/16 at 18:38; Status DC Lorazepam (Ativan) 0.125 mg BID PO Last administered on 09/24/16 19:19; Start 09/22/16 at 21:00; Stop 09/25/16 at 20:59; Status DC Quetiapine Fumarate (SEROquel) 25 mg QID PO Last administered on 09/28/16 08: 06; Start 09/22/16 at 21:00 Lorazepam (Ativan) 0.125 mg DAILY PO Last administered on 09/28/16 08:08; Start 09/26/16 at 09:00; Stop 09/29/16 at 08:59 Buspirone HCl (Buspar) 5 mg BID PO Last administered on 09/25/16 19:29; Start 09/24/16 at 21:00; Stop 09/26/16 at 10:34; Status DC Buspirone HCl (Buspar) 5 mg QID PO Last administered on 09/28/16 08:05; Start 09/26/16 at 13:00 Divalproex Sodium (Depakote Sprinkles) 125 mg BID92 PO Last administered on 08:06; Start 09/27/16 at 09:00 Active Scripts Active Reported Seroquel (Quetiapine Fumarate) 25 Mg Tablet 25 Mg PO BID Lorazepam Intensol (Lorazepam) 2 Mg/1 Ml Oral.conc 0.25 Ml SL PRN TID PRN Voltaren (Diclofenac Sodium) 100 Gm Gel..gram. 1 Beck TP BID Lorazepam 0.5 Mg Tablet 0.25 Mg PO TID Melatin (Melatonin) 3 Mg Tablet 3 Mg PO QHS Metoprolol Succinate ( Xl ) (Metoprolol Succinate) 25 Mg Tab.er.24h 25 Mg PO BID Dilantin (Phenytoin Sodium Extended) 100 Mg Capsule 100 Mg PO BID Glucosamine Sulfate (Glucosamine Sulfate 2KCL) 1,000 Mg Tablet 1,000 Mg PO DAILY Aspirin 81 Mg Tab.chew 81 Mg PO DAILY Claritin (Loratadine) 10 Mg Tablet 10 Mg PO DAILY Diagnosis: Problems: (1) Dementia with behavioral disturbance (2) Anxiety disorder (3) Dementia in Alzheimer's disease with delusions (4) Dementia in Alzheimer's disease with depression (5) Dementia, vascular, with delusions (6) Dementia, vascular, with depression (7) Impulse control disorder NAKIA KO MD Sep 28, 2016 11:50
[2016-09-28 15:34] VITALS: BP 138/80
[2016-09-28] MEDS: MELATONIN 3 MG TABLET PO SCH (19:26)
[2016-09-28] MEDS: POTASSIUM CHLORIDE 20 MEQ TABLET.ER. PO SCH (20:38)
[2016-09-29 06:03] VITALS: BP 147/72
[2016-09-29 07:04] LABS: HEMATOCRIT 30.1 % (36.0-47.0); HEMOGLOBIN 10.3 g/dL (12.0-15.5); RED BLOOD COUNT 3.3 x10^6/uL (3.50-5.40); RED CELL DISTRIBUTION WIDTH 14.3 % (11.5-14.5); WHITE BLOOD COUNT 5.6 x10^3/uL (4.0-11.0)
[2016-09-29 07:16] LABS: ALK PHOS 129 U/L (46-116); ALT (SGPT) 39 U/L (14-59); ANION GAP 7 (6-14); AST (SGOT) 26 U/L (15-37); BLOOD UREA NITROGEN 13 mg/dL (7-20); BUN/CREATININE RATIO 16 (6-20); CALCIUM 8.3 mg/dL (8.5-10.1); CARBON DIOXIDE 27 mmol/L (21-32); CHLORIDE 108 mmol/L (98-107); CREATININE 0.8 mg/dL (0.6-1.0); GFR 68.2; GLUCOSE 88 mg/dL (70-99); POTASSIUM 4.2 mmol/L (3.5-5.1); SODIUM 142 mmol/L (136-145); TOTAL BILIRUBIN 0.3 mg/dL (0.2-1.0); TOTAL PROTEIN 6.1 g/dL (6.4-8.2)
[2016-09-29 07:22] LABS: VAL ACID 11 mcg/mL (50-100)
[2016-09-29] MEDS: SERTRALINE 50 MG TABLET. PO SCH (07:46)
[2016-09-29] MEDS: POTASSIUM CHLORIDE 20 MEQ TABLET.ER. PO SCH ×2 (07:46→19:24)
[2016-09-29] MEDS: PHENYTOIN SODIUM EXTENDED 100 MG CAPSULE PO SCH ×2 (07:46→19:25)
[2016-09-29] MEDS: QUEtiapine 25 MG TABLET. PO SCH ×4 (07:46→19:25)
[2016-09-29] MEDS: CETIRIZINE HCL 10 MG TABLET PO SCH (07:47)
[2016-09-29] MEDS: ASPIRIN 81 MG TAB.CHEW PO SCH (07:47)
[2016-09-29] MEDS: DIVALPROEX 125 MG CAP.SPRINK PO SCH ×3 (07:47→19:30)
[2016-09-29] MEDS: METOPROLOL SUCC 24HR ER 25 MG TAB.ER.24H. PO SCH ×2 (07:47→19:24)
[2016-09-29] MEDS: GLUCOSAMINE 500 MG CAPSULE PO SCH (07:47)
[2016-09-29] MEDS: busPIRone 5 MG TABLET. PO SCH ×4 (07:47→19:25)
[2016-09-29] MEDS: DICLOFENAC SODIUM 1% TOPICAL GEL 100GM TUBE. TP SCH ×2 (07:48→19:27)
[2016-09-29] MEDS: LORazepam 0.5 MG TABLET PO PRN (13:37)
[2016-09-29 16:07] VITALS: BP 126/83
[2016-09-29] MEDS: MELATONIN 3 MG TABLET PO SCH (19:24)
--- NOTE | 2016-09-29 19:57 | PDOC ---
Exam Dane Demential Exam: Dane Note: Please also refer to the separate dictated note~for this date of service dictated separately.~Patient seen individually. Discussed the patient with Nursing staff reviewed the chart.~Reviewed interim history and current functioning. Reviewed vital signs,~Labs/ Radiology~and current medications noted below. Continue current treatment with the changes noted in the dictated addendum note Assessment: Vital Signs: Vital Signs Date Time Temp Pulse Resp B/P (MAP) Pulse Ox O2 Delivery O2 Flow Rate FiO2 09/29/16 19:24 82 126/83 09/29/16 16:07 97.9 20 95 Room Air I&O Intake and Output 09/29/16 07:00 Intake Total 840 ml Balance 840 ml Intake Oral 840 ml Labs: Laboratory Tests Test 09/29/16 06:37 White Blood Count 5.6 x10^3/uL (4.0-11.0) Red Blood Count 3.30 x10^6/uL (3.50-5.40) L Hemoglobin 10.3 g/dL (12.0-15.5) L Hematocrit 30.1 % (36.0-47.0) L Mean Corpuscular Volume 91 fL (79-100) Mean Corpuscular Hemoglobin 31 pg (25-35) Mean Corpuscular Hemoglobin Concent 34 g/dL (31-37) Red Cell Distribution Width 14.3 % (11.5-14.5) Platelet Count 234 x10^3/uL (140-400) Sodium Level 142 mmol/L (136-145) Potassium Level 4.2 mmol/L (3.5-5.1) Chloride Level 108 mmol/L (98-107) H Carbon Dioxide Level 27 mmol/L (21-32) Anion Gap 7 (6-14) Blood Urea Nitrogen 13 mg/dL (7-20) Creatinine 0.8 mg/dL (0.6-1.0) Estimated GFR (Cockcroft-Gault) 68.2 BUN/Creatinine Ratio 16 (6-20) Glucose Level 88 mg/dL (70-99) Calcium Level 8.3 mg/dL (8.5-10.1) L Total Bilirubin 0.3 mg/dL (0.2-1.0) Aspartate Amino Transferase (AST) 26 U/L (15-37) Alanine Aminotransferase (ALT) 39 U/L (14-59) Alkaline Phosphatase 129 U/L (46-116) H Total Protein 6.1 g/dL (6.4-8.2) L Albumin 3.0 g/dL (3.4-5.0) L Albumin/Globulin Ratio 1.0 (1.0-1.7) Valproic Acid Level 11 mcg/mL (50-100) L Valproic Acid Last Dose Date 09/28/16 Valproic Acid Last Dose Time 1400 Current Medications: Meds: Current Medications Acetaminophen (Tylenol) 650 mg PRN Q6HRS PRN PO PAIN / TEMP Last administered on 09/24/16 14:18; Start 09/13/16 at 13:00 Multi-Ingredient Ointment (Analgesic [place]) 1 beck PRN QID PRN TP MUSCLE PAIN; Start 09/13/16 at 14:00 Al Hydroxide/Mg Hydroxide (Mylanta Plus Xs) 15 ml PRN AFTMEALHC PRN PO DYSPEPSIA; Start 09/13/16 at 14:00 Magnesium Hydroxide (Milk Of Magnesia) 2,400 mg PRN QHS PRN PO CONSTIPATION Last administered on 09/19/16 11:47; Start 09/13/16 at 14:00 Lorazepam (Ativan) 0.25 mg TID PO Last administered on 09/17/16 19:35; Start 09/13/16 at 21:00; Stop 09/17/16 at 22:21; Status DC Lorazepam (Ativan) 0.5 mg PRN TID PRN PO ANXIETY / AGITATION Last administered on 09/29/16 13:37; Start 09/13/16 at 16:00 Phenytoin Sodium (Dilantin) 100 mg BID PO Last administered on 09/29/16 19:25 ; Start 09/13/16 at 21:00 Quetiapine Fumarate (SEROquel) 25 mg BID PO Last administered on 09/16/16 09: 00; Start 09/13/16 at 21:00; Stop 09/16/16 at 18:14; Status DC Melatonin 3 mg HS PO Last administered on 09/29/16 19:24; Start 09/13/16 at 21: 00 Aspirin (Children'S Aspirin) 81 mg DAILY PO Last administered on 09/29/16 07: 47; Start 09/14/16 at 09:00 Diclofenac Sodium (Voltaren) 1 beck BID TP Last administered on 09/29/16 19:27 ; Start 09/13/16 at 21:00 Metoprolol Succinate (Toprol Xl) 25 mg BID PO Last administered on 09/29/16 19 :24; Start 09/13/16 at 21:00 Glucosamine Sulfate (Glucosamine) 1,000 mg DAILY PO Last administered on 07:47; Start 09/14/16 at 09:00 Cetirizine HCl (ZyrTEC) 10 mg DAILY PO Last administered on 09/29/16 07:47; Start 09/14/16 at 09:00 Olanzapine (ZyPREXA ZYDIS) 2.5 mg PRN Q4HRS PRN PO PSYCHOSIS Last administered on 09/22/16 12:53; Start 09/14/16 at 14:15 Divalproex Sodium (Depakote Sprinkles) 250 mg HS PO Last administered on 19:32; Start 09/15/16 at 21:00; Stop 09/19/16 at 18:12; Status DC Divalproex Sodium (Depakote Sprinkles) 125 mg BID92 PO Last administered on 13:53; Start 09/15/16 at 09:00; Stop 09/19/16 at 18:12; Status DC Vitamin D (Vitamin D3) 50,000 unit WEEKLY PO Last administered on 09/16/16 13: 26; Start 09/16/16 at 11:30 Quetiapine Fumarate (SEROquel) 25 mg BIDACBL PO ; Start 09/17/16 at 07:30; Stop 09/17/16 at 07:30; Status DC Quetiapine Fumarate (SEROquel) 12.5 mg NOON PO Last administered on 09/22/16 12:17; Start 09/17/16 at 12:00; Stop 09/22/16 at 18:38; Status DC Sertraline HCl (Zoloft) 25 mg DAILY PO Last administered on 09/18/16 08:06; Start 09/17/16 at 09:00; Stop 09/19/16 at 08:59; Status DC Sertraline HCl (Zoloft) 50 mg DAILY PO Last administered on 09/29/16 07:46; Start 09/19/16 at 09:00 Quetiapine Fumarate (SEROquel) 25 mg BID94 PO Last administered on 09/17/16 16 :15; Start 09/17/16 at 09:00; Stop 09/17/16 at 22:21; Status DC Lorazepam (Ativan) 0.125 mg TID PO Last administered on 09/22/16 14:18; Start 09/18/16 at 09:00; Stop 09/22/16 at 18:38; Status DC Quetiapine Fumarate (SEROquel) 25 mg TID PO Last administered on 09/22/16 14: 18; Start 09/18/16 at 09:00; Stop 09/22/16 at 18:38; Status DC Lorazepam (Ativan) 0.125 mg BID PO Last administered on 09/24/16 19:19; Start 09/22/16 at 21:00; Stop 09/25/16 at 20:59; Status DC Quetiapine Fumarate (SEROquel) 25 mg QID PO Last administered on 09/29/16 19: 25; Start 09/22/16 at 21:00 Lorazepam (Ativan) 0.125 mg DAILY PO Last administered on 09/28/16 08:08; Start 09/26/16 at 09:00; Stop 09/29/16 at 08:59; Status DC Buspirone HCl (Buspar) 5 mg BID PO Last administered on 09/25/16 19:29; Start 09/24/16 at 21:00; Stop 09/26/16 at 10:34; Status DC Buspirone HCl (Buspar) 5 mg QID PO Last administered on 09/29/16 19:25; Start 09/26/16 at 13:00 Divalproex Sodium (Depakote Sprinkles) 125 mg BID92 PO Last administered on 07:47; Start 09/27/16 at 09:00; Stop 09/29/16 at 11:04; Status DC Potassium Chloride (Klor-Con) 20 meq BID PO Last administered on 09/29/16 19: 24; Start 09/28/16 at 21:00 Divalproex Sodium (Depakote Sprinkles) 125 mg TID PO Last administered on t 19:30; Start 09/29/16 at 14:00 Active Scripts Active Reported Seroquel (Quetiapine Fumarate) 25 Mg Tablet 25 Mg PO BID Lorazepam Intensol (Lorazepam) 2 Mg/1 Ml Oral.conc 0.25 Ml SL PRN TID PRN Voltaren (Diclofenac Sodium) 100 Gm Gel..gram. 1 Beck TP BID Lorazepam 0.5 Mg Tablet 0.25 Mg PO TID Melatin (Melatonin) 3 Mg Tablet 3 Mg PO QHS Metoprolol Succinate ( Xl ) (Metoprolol Succinate) 25 Mg Tab.er.24h 25 Mg PO BID Dilantin (Phenytoin Sodium Extended) 100 Mg Capsule 100 Mg PO BID Glucosamine Sulfate (Glucosamine Sulfate 2KCL) 1,000 Mg Tablet 1,000 Mg PO DAILY Aspirin 81 Mg Tab.chew 81 Mg PO DAILY Claritin (Loratadine) 10 Mg Tablet 10 Mg PO DAILY Diagnosis: Problems: (1) Dementia with behavioral disturbance (2) Anxiety disorder (3) Dementia in Alzheimer's disease with delusions (4) Dementia in Alzheimer's disease with depression (5) Dementia, vascular, with delusions (6) Dementia, vascular, with depression (7) Impulse control disorder NAKIA OK MD Sep 29, 2016 19:57
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
[2016-09-30 06:34] VITALS: BP 145/68
[2016-09-30] MEDS: DICLOFENAC SODIUM 1% TOPICAL GEL 100GM TUBE. TP SCH ×2 (09:00→20:23)
[2016-09-30] MEDS: PHENYTOIN SODIUM EXTENDED 100 MG CAPSULE PO SCH ×2 (09:01→20:20)
[2016-09-30] MEDS: GLUCOSAMINE 500 MG CAPSULE PO SCH (09:01)
[2016-09-30] MEDS: DIVALPROEX 125 MG CAP.SPRINK PO SCH ×3 (09:01→20:21)
[2016-09-30] MEDS: ASPIRIN 81 MG TAB.CHEW PO SCH (09:01)
[2016-09-30] MEDS: busPIRone 5 MG TABLET. PO SCH ×4 (09:02→20:20)
[2016-09-30] MEDS: METOPROLOL SUCC 24HR ER 25 MG TAB.ER.24H. PO SCH ×2 (09:02→20:21)
[2016-09-30] MEDS: QUEtiapine 25 MG TABLET. PO SCH ×4 (09:02→20:20)
[2016-09-30] MEDS: SERTRALINE 50 MG TABLET. PO SCH (09:02)
[2016-09-30] MEDS: POTASSIUM CHLORIDE 20 MEQ TABLET.ER. PO SCH ×2 (09:02→20:20)
[2016-09-30] MEDS: CETIRIZINE HCL 10 MG TABLET PO SCH (09:02)
[2016-09-30] MEDS: CHOLECALCIFEROL (VITAMIN D3) 50,000 UNIT CAPSULE PO SCH (09:03)
--- NOTE | 2016-09-30 09:11 | PN ---
DATE: 09/27/2016 PSYCHIATRIC PROGRESS NOTE This late entry of 09/27/2016 covers elements not covered in my initial note. SUBJECTIVE: The patient was seen individually evening of 09/27/2016. Per nursing report, the patient has been more labile, wandering, anxious, restless, but less tearful. REVIEW OF SYSTEMS: No CV, , eye, ENT or pulmonary system symptoms on review as I met with her evening of 09/27/2016. She is quite confused, oriented to herself. MENTAL STATUS EXAM: Insight, judgment, recent and remote memory, attention, concentration, fund of knowledge poor, consistent with her diagnosis. She was much less tearful, less labile on the evening of 09/27/2016 as I met with her. LABORATORY DATA: Reviewed. IMPRESSION: Major neurocognitive disorder, Alzheimer, vascular with depression, delusion behavioral disturbance, rest unchanged. PLAN: Continue current psychotropics including Depakote Sprinkles 125 b.i.d., which was just started. Follow labs level, adjust as indicated. MAN Leandro KO MD DR: LUCRECIA/luz JOB#: [id number] / [id number]
--- NOTE | 2016-09-30 09:13 | PN ---
DATE: 09/28/2016 PSYCHIATRIC PROGRESS NOTE This is a late entry for date of service 09/28/2016, covers the elements not covered in my initial note.1 SUBJECTIVE: The patient was seen individually evening of 09/28/2016. She slept 6-1/2 hours previous night, takes her medications crushed, less anxious, still a little tearful at times, but less so than before. REVIEW OF SYSTEMS: No CV, , pulmonary, eye, ENT system symptoms on review. Reliability poor. MENTAL STATUS EXAM: Oriented to herself. Insight, judgment, recent and remote memory, attention, concentration, fund of knowledge poor, consistent with her diagnosis mentioned in my initial note. LABORATORY DATA: Reviewed. PLAN: Continue current psychotropics, Dilantin, Depakote, melatonin, Seroquel, Zoloft, BuSpar, Ativan p.r.n. Adjust further as clinically indicated. After the next set of labs, will adjust her Depakote thereafter. NAKIA KO MD DR: LUCRECIA/luz JOB#: [id number] / [id number]
[2016-09-30] MEDS: CYANOCOBALAMIN (VITAMIN B-12) 250 MCG TABLET PO SCH (12:42)
[2016-09-30 16:35] VITALS: BP 115/74
--- NOTE | 2016-09-30 19:50 | PDOC ---
Exam Dane Demential Exam: Dane Note: Please also refer to the separate dictated note~for this date of service dictated separately.~Patient seen individually. Discussed the patient with Nursing staff reviewed the chart.~Reviewed interim history and current functioning. Reviewed vital signs,~Labs/ Radiology~and current medications noted below. Continue current treatment with the changes noted in the dictated addendum note Assessment: Vital Signs: Vital Signs Date Time Temp Pulse Resp B/P (MAP) Pulse Ox O2 Delivery O2 Flow Rate FiO2 09/30/16 16:35 98.6 87 16 115/74 (88) 96 Room Air I&O Intake and Output 09/30/16 07:00 Intake Total 840 ml Balance 840 ml Intake Oral 840 ml Current Medications: Meds: Current Medications Acetaminophen (Tylenol) 650 mg PRN Q6HRS PRN PO PAIN / TEMP Last administered on 09/24/16 14:18; Start 09/13/16 at 13:00 Multi-Ingredient Ointment (Analgesic [place]) 1 beck PRN QID PRN TP MUSCLE PAIN; Start 09/13/16 at 14:00 Al Hydroxide/Mg Hydroxide (Mylanta Plus Xs) 15 ml PRN AFTMEALHC PRN PO DYSPEPSIA; Start 09/13/16 at 14:00 Magnesium Hydroxide (Milk Of Magnesia) 2,400 mg PRN QHS PRN PO CONSTIPATION Last administered on 09/19/16 11:47; Start 09/13/16 at 14:00 Lorazepam (Ativan) 0.25 mg TID PO Last administered on 09/17/16 19:35; Start 09/13/16 at 21:00; Stop 09/17/16 at 22:21; Status DC Lorazepam (Ativan) 0.5 mg PRN TID PRN PO ANXIETY / AGITATION Last administered on 09/29/16 13:37; Start 09/13/16 at 16:00 Phenytoin Sodium (Dilantin) 100 mg BID PO Last administered on 09/30/16 09:01 ; Start 09/13/16 at 21:00 Quetiapine Fumarate (SEROquel) 25 mg BID PO Last administered on 09/16/16 09: 00; Start 09/13/16 at 21:00; Stop 09/16/16 at 18:14; Status DC Melatonin 3 mg HS PO Last administered on 09/29/16 19:24; Start 09/13/16 at 21: 00 Aspirin (Children'S Aspirin) 81 mg DAILY PO Last administered on 09/30/16 09: 01; Start 09/14/16 at 09:00 Diclofenac Sodium (Voltaren) 1 beck BID TP Last administered on 09/29/16 19:27 ; Start 09/13/16 at 21:00 Metoprolol Succinate (Toprol Xl) 25 mg BID PO Last administered on 09/30/16 09 :02; Start 09/13/16 at 21:00 Glucosamine Sulfate (Glucosamine) 1,000 mg DAILY PO Last administered on 09:01; Start 09/14/16 at 09:00 Cetirizine HCl (ZyrTEC) 10 mg DAILY PO Last administered on 09/30/16 09:02; Start 09/14/16 at 09:00 Olanzapine (ZyPREXA ZYDIS) 2.5 mg PRN Q4HRS PRN PO PSYCHOSIS Last administered on 09/22/16 12:53; Start 09/14/16 at 14:15 Divalproex Sodium (Depakote Sprinkles) 250 mg HS PO Last administered on 19:32; Start 09/15/16 at 21:00; Stop 09/19/16 at 18:12; Status DC Divalproex Sodium (Depakote Sprinkles) 125 mg BID92 PO Last administered on 13:53; Start 09/15/16 at 09:00; Stop 09/19/16 at 18:12; Status DC Vitamin D (Vitamin D3) 50,000 unit WEEKLY PO Last administered on 09/30/16 09: 03; Start 09/16/16 at 11:30 Quetiapine Fumarate (SEROquel) 25 mg BIDACBL PO ; Start 09/17/16 at 07:30; Stop 09/17/16 at 07:30; Status DC Quetiapine Fumarate (SEROquel) 12.5 mg NOON PO Last administered on 09/22/16 12:17; Start 09/17/16 at 12:00; Stop 09/22/16 at 18:38; Status DC Sertraline HCl (Zoloft) 25 mg DAILY PO Last administered on 09/18/16 08:06; Start 09/17/16 at 09:00; Stop 09/19/16 at 08:59; Status DC Sertraline HCl (Zoloft) 50 mg DAILY PO Last administered on 09/30/16 09:02; Start 09/19/16 at 09:00 Quetiapine Fumarate (SEROquel) 25 mg BID94 PO Last administered on 09/17/16 16 :15; Start 09/17/16 at 09:00; Stop 09/17/16 at 22:21; Status DC Lorazepam (Ativan) 0.125 mg TID PO Last administered on 09/22/16 14:18; Start 09/18/16 at 09:00; Stop 09/22/16 at 18:38; Status DC Quetiapine Fumarate (SEROquel) 25 mg TID PO Last administered on 09/22/16 14: 18; Start 09/18/16 at 09:00; Stop 09/22/16 at 18:38; Status DC Lorazepam (Ativan) 0.125 mg BID PO Last administered on 09/24/16 19:19; Start 09/22/16 at 21:00; Stop 09/25/16 at 20:59; Status DC Quetiapine Fumarate (SEROquel) 25 mg QID PO Last administered on 09/30/16 17: 03; Start 09/22/16 at 21:00 Lorazepam (Ativan) 0.125 mg DAILY PO Last administered on 09/28/16 08:08; Start 09/26/16 at 09:00; Stop 09/29/16 at 08:59; Status DC Buspirone HCl (Buspar) 5 mg BID PO Last administered on 09/25/16 19:29; Start 09/24/16 at 21:00; Stop 09/26/16 at 10:34; Status DC Buspirone HCl (Buspar) 5 mg QID PO Last administered on 09/30/16 17:03; Start 09/26/16 at 13:00 Divalproex Sodium (Depakote Sprinkles) 125 mg BID92 PO Last administered on 07:47; Start 09/27/16 at 09:00; Stop 7/23/17 at 11:04; Status DC Potassium Chloride (Klor-Con) 20 meq BID PO Last administered on 09/30/16 09: 02; Start 09/28/16 at 21:00 Divalproex Sodium (Depakote Sprinkles) 125 mg TID PO Last administered on 12:51; Start 09/29/16 at 14:00 Cyanocobalamin (Vitamin B-12) 250 mcg DAILY PO Last administered on 09/30/16 12:42; Start 09/30/16 at 12:30 Active Scripts Active Reported Seroquel (Quetiapine Fumarate) 25 Mg Tablet 25 Mg PO BID Lorazepam Intensol (Lorazepam) 2 Mg/1 Ml Oral.conc 0.25 Ml SL PRN TID PRN Voltaren (Diclofenac Sodium) 100 Gm Gel..gram. 1 Beck TP BID Lorazepam 0.5 Mg Tablet 0.25 Mg PO TID Melatin (Melatonin) 3 Mg Tablet 3 Mg PO QHS Metoprolol Succinate ( Xl ) (Metoprolol Succinate) 25 Mg Tab.er.24h 25 Mg PO BID Dilantin (Phenytoin Sodium Extended) 100 Mg Capsule 100 Mg PO BID Glucosamine Sulfate (Glucosamine Sulfate 2KCL) 1,000 Mg Tablet 1,000 Mg PO DAILY Aspirin 81 Mg Tab.chew 81 Mg PO DAILY Claritin (Loratadine) 10 Mg Tablet 10 Mg PO DAILY Diagnosis: Problems: (1) Dementia with behavioral disturbance (2) Anxiety disorder (3) Dementia in Alzheimer's disease with delusions (4) Dementia in Alzheimer's disease with depression (5) Dementia, vascular, with delusions (6) Dementia, vascular, with depression (7) Impulse control disorder NAKIA KO MD Sep 30, 2016 19:50
[2016-09-30] MEDS: MELATONIN 3 MG TABLET PO SCH (20:20)
[2016-10-01 06:56] VITALS: BP 147/82
[2016-10-01 07:04] LABS: CREATININE 0.8 mg/dL (0.6-1.0); GFR 68.2
[2016-10-01] MEDS: CETIRIZINE HCL 10 MG TABLET PO SCH (08:09)
[2016-10-01] MEDS: CYANOCOBALAMIN (VITAMIN B-12) 250 MCG TABLET PO SCH (08:10)
[2016-10-01] MEDS: POTASSIUM CHLORIDE 20 MEQ TABLET.ER. PO SCH ×2 (08:10→19:52)
[2016-10-01] MEDS: SERTRALINE 50 MG TABLET. PO SCH (08:10)
[2016-10-01] MEDS: QUEtiapine 25 MG TABLET. PO SCH ×4 (08:10→19:52)
[2016-10-01] MEDS: GLUCOSAMINE 500 MG CAPSULE PO SCH (08:11)
[2016-10-01] MEDS: DIVALPROEX 125 MG CAP.SPRINK PO SCH ×3 (08:11→19:53)
[2016-10-01] MEDS: PHENYTOIN SODIUM EXTENDED 100 MG CAPSULE PO SCH ×2 (08:11→19:52)
[2016-10-01] MEDS: ASPIRIN 81 MG TAB.CHEW PO SCH (08:11)
[2016-10-01] MEDS: busPIRone 5 MG TABLET. PO SCH ×4 (08:11→19:52)
[2016-10-01] MEDS: METOPROLOL SUCC 24HR ER 25 MG TAB.ER.24H. PO SCH ×2 (08:11→19:52)
[2016-10-01] MEDS: DICLOFENAC SODIUM 1% TOPICAL GEL 100GM TUBE. TP SCH ×3 (08:12→19:53)
--- NOTE | 2016-10-01 09:36 | PN ---
DATE: 09/29/2016 This late entry 09/29/2016 covers elements not covered in my initial note. SUBJECTIVE: I met with the patient on the evening of 09/29/2016. She slept 5-1/2 hours previous night, remains confused. Her speech is word salad, disorganized, tearful, agitated, intermittently. Ativan at 1340, 0.5 mg seems to help with anxiety. REVIEW OF SYSTEMS: No CV, , pulmonary, eye, ENT system symptoms on review. Reliability poor. MENTAL STATUS EXAM: Oriented to herself. Insight, judgment, recent and remote memory, attention, concentration, fund of knowledge poor, consistent with her diagnosis mentioned in my initial note. PLAN: Continue Dilantin, melatonin, Ativan p.r.n., Seroquel, Zoloft, Zyprexa p.r.n., BuSpar, Ativan scheduled and Depakote 125 mg t.i.d. Valproic acid level is 11; this might being subtherapeutic on 09/29/2016, clinically seems to be adequate for now. We may need to increase it if mood lability resurfaces. The crying spells are better. NAKIA KO MD DR: LUCRECIA/luz JOB#: [id number] / [id number]
[2016-10-01 16:04] VITALS: BP 159/95
[2016-10-01] MEDS: MELATONIN 3 MG TABLET PO SCH (19:52)
--- NOTE | 2016-10-01 19:54 | PDOC ---
Exam Dane Demential Exam: Dane Note: Please also refer to the separate dictated note~for this date of service dictated separately.~Patient seen individually. Discussed the patient with Nursing staff reviewed the chart.~Reviewed interim history and current functioning. Reviewed vital signs,~Labs/ Radiology~and current medications noted below. Continue current treatment with the changes noted in the dictated addendum note Assessment: Vital Signs: Vital Signs Date Time Temp Pulse Resp B/P (MAP) Pulse Ox O2 Delivery O2 Flow Rate FiO2 10/01/16 19:52 60 159/95 10/01/16 16:04 98.0 18 95 09/30/16 16:35 Room Air I&O Intake and Output 10/01/16 07:00 Intake Total 840 ml Balance 840 ml Intake Oral 840 ml Labs: Laboratory Tests Test 10/01/16 06:31 Sodium Level 141 mmol/L (136-145) Potassium Level 4.0 mmol/L (3.5-5.1) Chloride Level 106 mmol/L (98-107) Carbon Dioxide Level 25 mmol/L (21-32) Anion Gap 10 (6-14) Blood Urea Nitrogen 15 mg/dL (7-20) Creatinine 0.8 mg/dL (0.6-1.0) Estimated GFR (Cockcroft-Gault) 68.2 Glucose Level 90 mg/dL (70-99) Calcium Level 9.0 mg/dL (8.5-10.1) Current Medications: Meds: Current Medications Acetaminophen (Tylenol) 650 mg PRN Q6HRS PRN PO PAIN / TEMP Last administered on 09/24/16 14:18; Start 09/13/16 at 13:00 Multi-Ingredient Ointment (Analgesic [place]) 1 beck PRN QID PRN TP MUSCLE PAIN; Start 09/13/16 at 14:00 Al Hydroxide/Mg Hydroxide (Mylanta Plus Xs) 15 ml PRN AFTMEALHC PRN PO DYSPEPSIA; Start 09/13/16 at 14:00 Magnesium Hydroxide (Milk Of Magnesia) 2,400 mg PRN QHS PRN PO CONSTIPATION Last administered on 09/19/16 11:47; Start 09/13/16 at 14:00 Lorazepam (Ativan) 0.25 mg TID PO Last administered on 09/17/16 19:35; Start 09/13/16 at 21:00; Stop 09/17/16 at 22:21; Status DC Lorazepam (Ativan) 0.5 mg PRN TID PRN PO ANXIETY / AGITATION Last administered on 09/29/16 13:37; Start 09/13/16 at 16:00 Phenytoin Sodium (Dilantin) 100 mg BID PO Last administered on 10/01/16 19:52 ; Start 09/13/16 at 21:00 Quetiapine Fumarate (SEROquel) 25 mg BID PO Last administered on 09/16/16 09: 00; Start 09/13/16 at 21:00; Stop 09/16/16 at 18:14; Status DC Melatonin 3 mg HS PO Last administered on 10/01/16 19:52; Start 09/13/16 at 21: 00 Aspirin (Children'S Aspirin) 81 mg DAILY PO Last administered on 10/01/16 08: 11; Start 09/14/16 at 09:00 Diclofenac Sodium (Voltaren) 1 beck BID TP Last administered on 09/30/16 20:23 ; Start 09/13/16 at 21:00 Metoprolol Succinate (Toprol Xl) 25 mg BID PO Last administered on 10/01/16 19 :52; Start 09/13/16 at 21:00 Glucosamine Sulfate (Glucosamine) 1,000 mg DAILY PO Last administered on 08:11; Start 09/14/16 at 09:00 Cetirizine HCl (ZyrTEC) 10 mg DAILY PO Last administered on 10/01/16 08:09; Start 09/14/16 at 09:00 Olanzapine (ZyPREXA ZYDIS) 2.5 mg PRN Q4HRS PRN PO PSYCHOSIS Last administered on 09/22/16 12:53; Start 09/14/16 at 14:15 Divalproex Sodium (Depakote Sprinkles) 250 mg HS PO Last administered on 19:32; Start 09/15/16 at 21:00; Stop 09/19/16 at 18:12; Status DC Divalproex Sodium (Depakote Sprinkles) 125 mg BID92 PO Last administered on 13:53; Start 09/15/16 at 09:00; Stop 09/19/16 at 18:12; Status DC Vitamin D (Vitamin D3) 50,000 unit WEEKLY PO Last administered on 09/30/16 09: 03; Start 09/16/16 at 11:30 Quetiapine Fumarate (SEROquel) 25 mg BIDACBL PO ; Start 09/17/16 at 07:30; Stop 09/17/16 at 07:30; Status DC Quetiapine Fumarate (SEROquel) 12.5 mg NOON PO Last administered on 09/22/16 12:17; Start 09/17/16 at 12:00; Stop 09/22/16 at 18:38; Status DC Sertraline HCl (Zoloft) 25 mg DAILY PO Last administered on 09/18/16 08:06; Start 09/17/16 at 09:00; Stop 09/19/16 at 08:59; Status DC Sertraline HCl (Zoloft) 50 mg DAILY PO Last administered on 10/01/16 08:10; Start 09/19/16 at 09:00; Stop 10/01/16 at 18:05; Status DC Quetiapine Fumarate (SEROquel) 25 mg BID94 PO Last administered on 09/17/16 16 :15; Start 09/17/16 at 09:00; Stop 09/17/16 at 22:21; Status DC Lorazepam (Ativan) 0.125 mg TID PO Last administered on 09/22/16 14:18; Start 09/18/16 at 09:00; Stop 09/22/16 at 18:38; Status DC Quetiapine Fumarate (SEROquel) 25 mg TID PO Last administered on 09/22/16 14: 18; Start 09/18/16 at 09:00; Stop 09/22/16 at 18:38; Status DC Lorazepam (Ativan) 0.125 mg BID PO Last administered on 09/24/16 19:19; Start 09/22/16 at 21:00; Stop 09/25/16 at 20:59; Status DC Quetiapine Fumarate (SEROquel) 25 mg QID PO Last administered on 10/01/16 19: 52; Start 09/22/16 at 21:00 Lorazepam (Ativan) 0.125 mg DAILY PO Last administered on 09/28/16 08:08; Start 09/26/16 at 09:00; Stop 09/29/16 at 08:59; Status DC Buspirone HCl (Buspar) 5 mg BID PO Last administered on 09/25/16 19:29; Start 09/24/16 at 21:00; Stop 09/26/16 at 10:34; Status DC Buspirone HCl (Buspar) 5 mg QID PO Last administered on 10/01/16 19:52; Start 09/26/16 at 13:00 Divalproex Sodium (Depakote Sprinkles) 125 mg BID92 PO Last administered on 07:47; Start 09/27/16 at 09:00; Stop 09/29/16 at 11:04; Status DC Potassium Chloride (Klor-Con) 20 meq BID PO Last administered on 10/01/16 19: 52; Start 09/28/16 at 21:00 Divalproex Sodium (Depakote Sprinkles) 125 mg TID PO Last administered on 19:53; Start 09/29/16 at 14:00 Cyanocobalamin (Vitamin B-12) 250 mcg DAILY PO Last administered on 10/01/16 08:10; Start 09/30/16 at 12:30 Sertraline HCl (Zoloft) 75 mg DAILY PO ; Start 10/02/16 at 09:00 Active Scripts Active Reported Seroquel (Quetiapine Fumarate) 25 Mg Tablet 25 Mg PO BID Lorazepam Intensol (Lorazepam) 2 Mg/1 Ml Oral.conc 0.25 Ml SL PRN TID PRN Voltaren (Diclofenac Sodium) 100 Gm Gel..gram. 1 Beck TP BID Lorazepam 0.5 Mg Tablet 0.25 Mg PO TID Melatin (Melatonin) 3 Mg Tablet 3 Mg PO QHS Metoprolol Succinate ( Xl ) (Metoprolol Succinate) 25 Mg Tab.er.24h 25 Mg PO BID Dilantin (Phenytoin Sodium Extended) 100 Mg Capsule 100 Mg PO BID Glucosamine Sulfate (Glucosamine Sulfate 2KCL) 1,000 Mg Tablet 1,000 Mg PO DAILY Aspirin 81 Mg Tab.chew 81 Mg PO DAILY Claritin (Loratadine) 10 Mg Tablet 10 Mg PO DAILY Diagnosis: Problems: (1) Dementia with behavioral disturbance (2) Anxiety disorder (3) Dementia in Alzheimer's disease with delusions (4) Dementia in Alzheimer's disease with depression (5) Dementia, vascular, with delusions (6) Dementia, vascular, with depression (7) Impulse control disorder NAKIA KO MD Oct 01, 2016 19:54
[2016-10-02 06:00] VITALS: BP 128/69
--- NOTE | 2016-10-02 06:44 | PN ---
DATE: 09/30/2016 PSYCHIATRIC PROGRESS NOTE This is a late entry of 09/30/2016 covers elements not covered in my initial note. SUBJECTIVE: I met with the patient the evening of 09/30/2016. The patient slept 7-1/2 hours previous night. She has been confused, wandering, crying at times anxious takes her medications in pudding. REVIEW OF SYSTEMS: No CV, , eye, ENT or pulmonary system symptoms on review. Reliability poor. MENTAL STATUS EXAM: Oriented to herself. Insight, judgment, recent and remote memory, attention, concentration, fund of knowledge poor, consistent with her diagnosis mentioned in my initial note. PLAN: Depakote was increased to 125 t.i.d. We will check labs level on 10/03/2016. Adjust further as clinically indicated. Scheduled Ativan 0.125 mg daily has been discontinued. Maintain Dilantin, melatonin, Ativan p.r.n., Seroquel 25 mg 4 times a day, Zoloft 50 mg a day, BuSpar 5 mg 4 times a day. Adjust further as clinically indicated. MAN Leandro KO MD DR: LUCRECIA/luz JOB#: [id number] / [id number]
[2016-10-02] MEDS: METOPROLOL SUCC 24HR ER 25 MG TAB.ER.24H. PO SCH ×2 (07:50→19:46)
[2016-10-02] MEDS: GLUCOSAMINE 500 MG CAPSULE PO SCH (07:50)
[2016-10-02] MEDS: POTASSIUM CHLORIDE 20 MEQ TABLET.ER. PO SCH ×2 (07:50→19:44)
[2016-10-02] MEDS: DIVALPROEX 125 MG CAP.SPRINK PO SCH ×3 (07:50→19:44)
[2016-10-02] MEDS: ASPIRIN 81 MG TAB.CHEW PO SCH (07:51)
[2016-10-02] MEDS: busPIRone 5 MG TABLET. PO SCH ×4 (07:51→19:45)
[2016-10-02] MEDS: CYANOCOBALAMIN (VITAMIN B-12) 250 MCG TABLET PO SCH (07:51)
[2016-10-02] MEDS: PHENYTOIN SODIUM EXTENDED 100 MG CAPSULE PO SCH ×2 (07:51→19:46)
[2016-10-02] MEDS: QUEtiapine 25 MG TABLET. PO SCH ×4 (07:51→19:45)
[2016-10-02] MEDS: CETIRIZINE HCL 10 MG TABLET PO SCH (07:51)
[2016-10-02] MEDS: SERTRALINE 50 MG TABLET. PO SCH (07:56)
[2016-10-02] MEDS: DICLOFENAC SODIUM 1% TOPICAL GEL 100GM TUBE. TP SCH ×2 (07:56→19:48)
[2016-10-02 16:01] VITALS: BP 132/83
[2016-10-02] MEDS: POLYVINYL ALCOHOL 1.4% OPHTH SOLUTION 15ML BOTTLE. OU SCH (19:43)
[2016-10-02] MEDS: MELATONIN 3 MG TABLET PO SCH (19:46)
--- NOTE | 2016-10-02 19:56 | PDOC ---
Exam Dane Demential Exam: Dane Note: Please also refer to the separate dictated note~for this date of service dictated separately.~Patient seen individually. Discussed the patient with Nursing staff reviewed the chart.~Reviewed interim history and current functioning. Reviewed vital signs,~Labs/ Radiology~and current medications noted below. Continue current treatment with the changes noted in the dictated addendum note Assessment: Vital Signs: Vital Signs Date Time Temp Pulse Resp B/P (MAP) Pulse Ox O2 Delivery O2 Flow Rate FiO2 10/02/16 19:46 68 132/83 10/02/16 16:01 97.2 18 98 Room Air I&O Intake and Output 10/02/16 07:00 Intake Total 960 ml Balance 960 ml Intake Oral 960 ml # Bowel Movements 1 Current Medications: Meds: Current Medications Acetaminophen (Tylenol) 650 mg PRN Q6HRS PRN PO PAIN / TEMP Last administered on 09/24/16 14:18; Start 09/13/16 at 13:00 Multi-Ingredient Ointment (Analgesic [place]) 1 beck PRN QID PRN TP MUSCLE PAIN; Start 09/13/16 at 14:00 Al Hydroxide/Mg Hydroxide (Mylanta Plus Xs) 15 ml PRN AFTMEALHC PRN PO DYSPEPSIA; Start 09/13/16 at 14:00 Magnesium Hydroxide (Milk Of Magnesia) 2,400 mg PRN QHS PRN PO CONSTIPATION Last administered on 09/19/16 11:47; Start 09/13/16 at 14:00 Lorazepam (Ativan) 0.25 mg TID PO Last administered on 09/17/16 19:35; Start 09/13/16 at 21:00; Stop 09/17/16 at 22:21; Status DC Lorazepam (Ativan) 0.5 mg PRN TID PRN PO ANXIETY / AGITATION Last administered on 09/29/16 13:37; Start 09/13/16 at 16:00 Phenytoin Sodium (Dilantin) 100 mg BID PO Last administered on 10/02/16 19:46 ; Start 09/13/16 at 21:00 Quetiapine Fumarate (SEROquel) 25 mg BID PO Last administered on 09/16/16 09: 00; Start 09/13/16 at 21:00; Stop 09/16/16 at 18:14; Status DC Melatonin 3 mg HS PO Last administered on 10/02/16 19:46; Start 09/13/16 at 21: 00 Aspirin (Children'S Aspirin) 81 mg DAILY PO Last administered on 10/02/16 07: 51; Start 09/14/16 at 09:00 Diclofenac Sodium (Voltaren) 1 beck BID TP Last administered on 10/02/16 19:48 ; Start 09/13/16 at 21:00 Metoprolol Succinate (Toprol Xl) 25 mg BID PO Last administered on 10/02/16 19 :46; Start 09/13/16 at 21:00 Glucosamine Sulfate (Glucosamine) 1,000 mg DAILY PO Last administered on 07:50; Start 09/14/16 at 09:00 Cetirizine HCl (ZyrTEC) 10 mg DAILY PO Last administered on 10/02/16 07:51; Start 09/14/16 at 09:00 Olanzapine (ZyPREXA ZYDIS) 2.5 mg PRN Q4HRS PRN PO PSYCHOSIS Last administered on 09/22/16 12:53; Start 09/14/16 at 14:15 Divalproex Sodium (Depakote Sprinkles) 250 mg HS PO Last administered on 19:32; Start 09/15/16 at 21:00; Stop 09/19/16 at 18:12; Status DC Divalproex Sodium (Depakote Sprinkles) 125 mg BID92 PO Last administered on 13:53; Start 09/15/16 at 09:00; Stop 09/19/16 at 18:12; Status DC Vitamin D (Vitamin D3) 50,000 unit WEEKLY PO Last administered on 09/30/16 09: 03; Start 09/16/16 at 11:30 Quetiapine Fumarate (SEROquel) 25 mg BIDACBL PO ; Start 09/17/16 at 07:30; Stop 09/17/16 at 07:30; Status DC Quetiapine Fumarate (SEROquel) 12.5 mg NOON PO Last administered on 09/22/16 12:17; Start 09/17/16 at 12:00; Stop 09/22/16 at 18:38; Status DC Sertraline HCl (Zoloft) 25 mg DAILY PO Last administered on 09/18/16 08:06; Start 09/17/16 at 09:00; Stop 09/19/16 at 08:59; Status DC Sertraline HCl (Zoloft) 50 mg DAILY PO Last administered on 10/01/16 08:10; Start 09/19/16 at 09:00; Stop 10/01/16 at 18:05; Status DC Quetiapine Fumarate (SEROquel) 25 mg BID94 PO Last administered on 09/17/16 16 :15; Start 09/17/16 at 09:00; Stop 09/17/16 at 22:21; Status DC Lorazepam (Ativan) 0.125 mg TID PO Last administered on 09/22/16 14:18; Start 09/18/16 at 09:00; Stop 09/22/16 at 18:38; Status DC Quetiapine Fumarate (SEROquel) 25 mg TID PO Last administered on 09/22/16 14: 18; Start 09/18/16 at 09:00; Stop 09/22/16 at 18:38; Status DC Lorazepam (Ativan) 0.125 mg BID PO Last administered on 09/24/16 19:19; Start 09/22/16 at 21:00; Stop 09/25/16 at 20:59; Status DC Quetiapine Fumarate (SEROquel) 25 mg QID PO Last administered on 10/02/16 19: 45; Start 09/22/16 at 21:00 Lorazepam (Ativan) 0.125 mg DAILY PO Last administered on 09/28/16 08:08; Start 09/26/16 at 09:00; Stop 09/29/16 at 08:59; Status DC Buspirone HCl (Buspar) 5 mg BID PO Last administered on 09/25/16 19:29; Start 09/24/16 at 21:00; Stop 09/26/16 at 10:34; Status DC Buspirone HCl (Buspar) 5 mg QID PO Last administered on 10/02/16 19:45; Start 09/26/16 at 13:00 Divalproex Sodium (Depakote Sprinkles) 125 mg BID92 PO Last administered on 07:47; Start 09/27/16 at 09:00; Stop 09/29/16 at 11:04; Status DC Potassium Chloride (Klor-Con) 20 meq BID PO Last administered on 10/02/16 19: 44; Start 09/28/16 at 21:00 Divalproex Sodium (Depakote Sprinkles) 125 mg TID PO Last administered on 19:44; Start 09/29/16 at 14:00 Cyanocobalamin (Vitamin B-12) 250 mcg DAILY PO Last administered on 10/02/16 07:51; Start 09/30/16 at 12:30 Sertraline HCl (Zoloft) 75 mg DAILY PO Last administered on 10/02/16 07:56; Start 10/02/16 at 09:00 Artificial Tears (Artificial Tears) 1 drop TID OU Last administered on 19:43; Start 10/02/16 at 21:00 Active Scripts Active Reported Seroquel (Quetiapine Fumarate) 25 Mg Tablet 25 Mg PO BID Lorazepam Intensol (Lorazepam) 2 Mg/1 Ml Oral.conc 0.25 Ml SL PRN TID PRN Voltaren (Diclofenac Sodium) 100 Gm Gel..gram. 1 Beck TP BID Lorazepam 0.5 Mg Tablet 0.25 Mg PO TID Melatin (Melatonin) 3 Mg Tablet 3 Mg PO QHS Metoprolol Succinate ( Xl ) (Metoprolol Succinate) 25 Mg Tab.er.24h 25 Mg PO BID Dilantin (Phenytoin Sodium Extended) 100 Mg Capsule 100 Mg PO BID Glucosamine Sulfate (Glucosamine Sulfate 2KCL) 1,000 Mg Tablet 1,000 Mg PO DAILY Aspirin 81 Mg Tab.chew 81 Mg PO DAILY Claritin (Loratadine) 10 Mg Tablet 10 Mg PO DAILY Diagnosis: Problems: (1) Dementia with behavioral disturbance (2) Anxiety disorder (3) Dementia in Alzheimer's disease with delusions (4) Dementia in Alzheimer's disease with depression (5) Dementia, vascular, with delusions (6) Dementia, vascular, with depression (7) Impulse control disorder NAKIA KO MD Oct 02, 2016 19:56
--- NOTE | 2016-10-02 22:02 | PN ---
DATE: 10/01/2016 This late entry 10/01/2016 covers elements not covered in my initial note. SUBJECTIVE: I met with the patient the evening of 10/01/2016. She slept 7-1/2 hours previous night, less tearful during the day, 10/01/2016, wandering disorganized, in the morning was resistive to taking medications, been better rest of the day, less paranoid. REVIEW OF SYSTEMS: No CV, , eye, ENT or pulmonary system symptoms on review. Reliability poor. MENTAL STATUS EXAM: Oriented to herself. Insight, judgment, recent and remote memory, attention, concentration, fund of knowledge poor, consistent with her diagnosis mentioned in my initial note. PLAN: Increase Zoloft to 75 mg a day. Continue rest of psychotropics. Adjust as indicated. MAN Leandro KO MD DR: [email or web address]/luz JOB#: [id number] / [id number]
[2016-10-02] MEDS: LORazepam 0.5 MG TABLET PO PRN (22:35)
[2016-10-03 05:46] VITALS: BP 120/71
[2016-10-03 06:37] LABS: BASO % 0 % (0-3); EOS # 0.3 x10^3/uL (0.0-0.7); EOS % 6 % (0-3); HEMATOCRIT 30.2 % (36.0-47.0); HEMOGLOBIN 10.3 g/dL (12.0-15.5); LYMPH # 1.1 x10^3/uL (1.0-4.8); LYMPH % 25 % (24-48); MEAN CORPUSCULAR HEMOGLOBIN 31 pg (25-35); MEAN CORPUSCULAR HGB CONC 34 g/dL (31-37); MEAN CORPUSCULAR VOLUME 92 fL (79-100); MONO # 0.4 x10^3/uL (0.0-1.1); MONO % 10 % (0-9); NEUT # 2.8 x10^3uL (1.8-7.7); NEUT % 60 % (31-73); PLATELET COUNT 251 x10^3/uL (140-400); RED CELL DISTRIBUTION WIDTH 14.9 % (11.5-14.5); WHITE BLOOD COUNT 4.6 x10^3/uL (4.0-11.0)
[2016-10-03 06:44] LABS: ALBUMIN 3.1 g/dL (3.4-5.0); ALK PHOS 138 U/L (46-116); ALT (SGPT) 24 U/L (14-59); ANION GAP 5 (6-14); AST (SGOT) 17 U/L (15-37); BLOOD UREA NITROGEN 21 mg/dL (7-20); BUN/CREATININE RATIO 21 (6-20); CALCIUM 8.4 mg/dL (8.5-10.1); CARBON DIOXIDE 29 mmol/L (21-32); CHLORIDE 108 mmol/L (98-107); GFR 52.7; GLUCOSE 89 mg/dL (70-99); POTASSIUM 4.3 mmol/L (3.5-5.1); SODIUM 142 mmol/L (136-145); TOTAL BILIRUBIN 0.3 mg/dL (0.2-1.0); TOTAL PROTEIN 6.3 g/dL (6.4-8.2)
[2016-10-03 06:45] LABS: VAL ACID 21 mcg/mL (50-100)
[2016-10-03] MEDS: QUEtiapine 25 MG TABLET. PO SCH ×4 (07:54→19:42)
[2016-10-03] MEDS: POTASSIUM CHLORIDE 20 MEQ TABLET.ER. PO SCH ×2 (07:54→19:42)
[2016-10-03] MEDS: DIVALPROEX 125 MG CAP.SPRINK PO SCH ×4 (07:54→19:41)
[2016-10-03] MEDS: PHENYTOIN SODIUM EXTENDED 100 MG CAPSULE PO SCH ×2 (07:54→19:41)
[2016-10-03] MEDS: CYANOCOBALAMIN (VITAMIN B-12) 250 MCG TABLET PO SCH (07:54)
[2016-10-03] MEDS: METOPROLOL SUCC 24HR ER 25 MG TAB.ER.24H. PO SCH ×2 (07:55→19:41)
[2016-10-03] MEDS: SERTRALINE 50 MG TABLET. PO SCH (07:55)
[2016-10-03] MEDS: ASPIRIN 81 MG TAB.CHEW PO SCH (07:55)
[2016-10-03] MEDS: GLUCOSAMINE 500 MG CAPSULE PO SCH (07:56)
[2016-10-03] MEDS: busPIRone 5 MG TABLET. PO SCH ×4 (07:56→19:42)
[2016-10-03] MEDS: CETIRIZINE HCL 10 MG TABLET PO SCH (07:56)
[2016-10-03] MEDS: POLYVINYL ALCOHOL 1.4% OPHTH SOLUTION 15ML BOTTLE. OU SCH ×3 (07:59→19:44)
[2016-10-03] MEDS: DICLOFENAC SODIUM 1% TOPICAL GEL 100GM TUBE. TP SCH ×2 (07:59→19:44)
[2016-10-03 16:06] VITALS: BP 138/69
[2016-10-03] MEDS: MELATONIN 3 MG TABLET PO SCH (19:42)
--- NOTE | 2016-10-03 19:53 | PDOC ---
Exam Dane Demential Exam: Dane Note: Please also refer to the separate dictated note~for this date of service dictated separately.~Patient seen individually. Discussed the patient with Nursing staff reviewed the chart.~Reviewed interim history and current functioning. Reviewed vital signs,~Labs/ Radiology~and current medications noted below. Continue current treatment with the changes noted in the dictated addendum note Assessment: Vital Signs: Vital Signs Date Time Temp Pulse Resp B/P (MAP) Pulse Ox O2 Delivery O2 Flow Rate FiO2 10/03/16 19:41 93 138/69 10/03/16 16:06 97.4 18 95 Room Air I&O Intake and Output 10/03/16 07:00 Intake Total 1080 ml Balance 1080 ml Intake Oral 1080 ml # Bowel Movements 1 Labs: Laboratory Tests Test 10/03/16 06:22 White Blood Count 4.6 x10^3/uL (4.0-11.0) Red Blood Count 3.30 x10^6/uL (3.50-5.40) L Hemoglobin 10.3 g/dL (12.0-15.5) L Hematocrit 30.2 % (36.0-47.0) L Mean Corpuscular Volume 92 fL (79-100) Mean Corpuscular Hemoglobin 31 pg (25-35) Mean Corpuscular Hemoglobin Concent 34 g/dL (31-37) Red Cell Distribution Width 14.9 % (11.5-14.5) H Platelet Count 251 x10^3/uL (140-400) Neutrophils (%) (Auto) 60 % (31-73) Lymphocytes (%) (Auto) 25 % (24-48) Monocytes (%) (Auto) 10 % (0-9) H Eosinophils (%) (Auto) 6 % (0-3) H Basophils (%) (Auto) 0 % (0-3) Neutrophils # (Auto) 2.8 x10^3uL (1.8-7.7) Lymphocytes # (Auto) 1.1 x10^3/uL (1.0-4.8) Monocytes # (Auto) 0.4 x10^3/uL (0.0-1.1) Eosinophils # (Auto) 0.3 x10^3/uL (0.0-0.7) Basophils # (Auto) 0.0 x10^3/uL (0.0-0.2) Sodium Level 142 mmol/L (136-145) Potassium Level 4.3 mmol/L (3.5-5.1) Chloride Level 108 mmol/L (98-107) H Carbon Dioxide Level 29 mmol/L (21-32) Anion Gap 5 (6-14) L Blood Urea Nitrogen 21 mg/dL (7-20) H Creatinine 1.0 mg/dL (0.6-1.0) Estimated GFR (Cockcroft-Gault) 52.7 BUN/Creatinine Ratio 21 (6-20) H Glucose Level 89 mg/dL (70-99) Calcium Level 8.4 mg/dL (8.5-10.1) L Total Bilirubin 0.3 mg/dL (0.2-1.0) Aspartate Amino Transferase (AST) 17 U/L (15-37) Alanine Aminotransferase (ALT) 24 U/L (14-59) Alkaline Phosphatase 138 U/L (46-116) H Total Protein 6.3 g/dL (6.4-8.2) L Albumin 3.1 g/dL (3.4-5.0) L Albumin/Globulin Ratio 1.0 (1.0-1.7) Valproic Acid Level 21 mcg/mL (50-100) L Valproic Acid Last Dose Date 10/02/2016 Valproic Acid Last Dose Time 2100 Current Medications: Meds: Current Medications Acetaminophen (Tylenol) 650 mg PRN Q6HRS PRN PO PAIN / TEMP Last administered on 09/24/16 14:18; Start 09/13/16 at 13:00 Multi-Ingredient Ointment (Analgesic [place]) 1 beck PRN QID PRN TP MUSCLE PAIN; Start 09/13/16 at 14:00 Al Hydroxide/Mg Hydroxide (Mylanta Plus Xs) 15 ml PRN AFTMEALHC PRN PO DYSPEPSIA; Start 09/13/16 at 14:00 Magnesium Hydroxide (Milk Of Magnesia) 2,400 mg PRN QHS PRN PO CONSTIPATION Last administered on 09/19/16 11:47; Start 09/13/16 at 14:00 Lorazepam (Ativan) 0.25 mg TID PO Last administered on 09/17/16 19:35; Start 09/13/16 at 21:00; Stop 09/17/16 at 22:21; Status DC Lorazepam (Ativan) 0.5 mg PRN TID PRN PO ANXIETY / AGITATION Last administered on 10/02/16 22:35; Start 09/13/16 at 16:00 Phenytoin Sodium (Dilantin) 100 mg BID PO Last administered on 10/03/16 19:41 ; Start 09/13/16 at 21:00 Quetiapine Fumarate (SEROquel) 25 mg BID PO Last administered on 09/16/16 09: 00; Start 09/13/16 at 21:00; Stop 09/16/16 at 18:14; Status DC Melatonin 3 mg HS PO Last administered on 10/03/16 19:42; Start 09/13/16 at 21: 00 Aspirin (Children'S Aspirin) 81 mg DAILY PO Last administered on 10/03/16 07: 55; Start 09/14/16 at 09:00 Diclofenac Sodium (Voltaren) 1 beck BID TP Last administered on 10/03/16 19:44 ; Start 09/13/16 at 21:00 Metoprolol Succinate (Toprol Xl) 25 mg BID PO Last administered on 10/03/16 19 :41; Start 09/13/16 at 21:00 Glucosamine Sulfate (Glucosamine) 1,000 mg DAILY PO Last administered on 07:56; Start 09/14/16 at 09:00 Cetirizine HCl (ZyrTEC) 10 mg DAILY PO Last administered on 10/03/16 07:56; Start 09/14/16 at 09:00 Olanzapine (ZyPREXA ZYDIS) 2.5 mg PRN Q4HRS PRN PO PSYCHOSIS Last administered on 10/02/16 19:57; Start 09/14/16 at 14:15 Divalproex Sodium (Depakote Sprinkles) 250 mg HS PO Last administered on 19:32; Start 09/15/16 at 21:00; Stop 09/19/16 at 18:12; Status DC Divalproex Sodium (Depakote Sprinkles) 125 mg BID92 PO Last administered on 13:53; Start 09/15/16 at 09:00; Stop 09/19/16 at 18:12; Status DC Vitamin D (Vitamin D3) 50,000 unit WEEKLY PO Last administered on 09/30/16 09: 03; Start 09/16/16 at 11:30 Quetiapine Fumarate (SEROquel) 25 mg BIDACBL PO ; Start 09/17/16 at 07:30; Stop 09/17/16 at 07:30; Status DC Quetiapine Fumarate (SEROquel) 12.5 mg NOON PO Last administered on 09/22/16 12:17; Start 09/17/16 at 12:00; Stop 09/22/16 at 18:38; Status DC Sertraline HCl (Zoloft) 25 mg DAILY PO Last administered on 09/18/16 08:06; Start 09/17/16 at 09:00; Stop 09/19/16 at 08:59; Status DC Sertraline HCl (Zoloft) 50 mg DAILY PO Last administered on 10/01/16 08:10; Start 09/19/16 at 09:00; Stop 10/01/16 at 18:05; Status DC Quetiapine Fumarate (SEROquel) 25 mg BID94 PO Last administered on 09/17/16 16 :15; Start 09/17/16 at 09:00; Stop 09/17/16 at 22:21; Status DC Lorazepam (Ativan) 0.125 mg TID PO Last administered on 09/22/16 14:18; Start 09/18/16 at 09:00; Stop 09/22/16 at 18:38; Status DC Quetiapine Fumarate (SEROquel) 25 mg TID PO Last administered on 09/22/16 14: 18; Start 09/18/16 at 09:00; Stop 09/22/16 at 18:38; Status DC Lorazepam (Ativan) 0.125 mg BID PO Last administered on 09/24/16 19:19; Start 09/22/16 at 21:00; Stop 09/25/16 at 20:59; Status DC Quetiapine Fumarate (SEROquel) 25 mg QID PO Last administered on 10/03/16 19: 42; Start 09/22/16 at 21:00 Lorazepam (Ativan) 0.125 mg DAILY PO Last administered on 09/28/16 08:08; Start 09/26/16 at 09:00; Stop 09/29/16 at 08:59; Status DC Buspirone HCl (Buspar) 5 mg BID PO Last administered on 09/25/16 19:29; Start 09/24/16 at 21:00; Stop 09/26/16 at 10:34; Status DC Buspirone HCl (Buspar) 5 mg QID PO Last administered on 10/03/16 19:42; Start 09/26/16 at 13:00 Divalproex Sodium (Depakote Sprinkles) 125 mg BID92 PO Last administered on 07:47; Start 09/27/16 at 09:00; Stop 09/29/16 at 11:04; Status DC Potassium Chloride (Klor-Con) 20 meq BID PO Last administered on 10/03/16 19: 42; Start 09/28/16 at 21:00 Divalproex Sodium (Depakote Sprinkles) 125 mg TID PO Last administered on 07:54; Start 09/29/16 at 14:00; Stop 10/03/16 at 10:05; Status DC Cyanocobalamin (Vitamin B-12) 250 mcg DAILY PO Last administered on 10/03/16 07:54; Start 09/30/16 at 12:30 Sertraline HCl (Zoloft) 75 mg DAILY PO Last administered on 10/03/16 07:55; Start 10/02/16 at 09:00 Artificial Tears (Artificial Tears) 1 drop TID OU Last administered on 19:44; Start 10/02/16 at 21:00 Divalproex Sodium (Depakote Sprinkles) 125 mg QID PO Last administered on 19:41; Start 10/03/16 at 13:00 Trazodone HCl (Desyrel) 25 mg PRN QHS PRN PO INSOMNIA; Start 10/03/16 at 10:15 Active Scripts Active Reported Seroquel (Quetiapine Fumarate) 25 Mg Tablet 25 Mg PO BID Lorazepam Intensol (Lorazepam) 2 Mg/1 Ml Oral.conc 0.25 Ml SL PRN TID PRN Voltaren (Diclofenac Sodium) 100 Gm Gel..gram. 1 Beck TP BID Lorazepam 0.5 Mg Tablet 0.25 Mg PO TID Melatin (Melatonin) 3 Mg Tablet 3 Mg PO QHS Metoprolol Succinate ( Xl ) (Metoprolol Succinate) 25 Mg Tab.er.24h 25 Mg PO BID Dilantin (Phenytoin Sodium Extended) 100 Mg Capsule 100 Mg PO BID Glucosamine Sulfate (Glucosamine Sulfate 2KCL) 1,000 Mg Tablet 1,000 Mg PO DAILY Aspirin 81 Mg Tab.chew 81 Mg PO DAILY Claritin (Loratadine) 10 Mg Tablet 10 Mg PO DAILY Diagnosis: Problems: (1) Dementia with behavioral disturbance (2) Anxiety disorder (3) Dementia in Alzheimer's disease with delusions (4) Dementia in Alzheimer's disease with depression (5) Dementia, vascular, with delusions (6) Dementia, vascular, with depression (7) Impulse control disorder NAKIA KO MD Oct 03, 2016 19:53
--- NOTE | 2016-10-03 23:36 | PN ---
DATE: 10/02/2016 PSYCHIATRIC PROGRESS NOTE This is a late entry 10/02/2016, covers elements not covered in my initial note. SUBJECTIVE: The patient remains confused, calm, disorganized, cooperative with care, compliant with medications. I met with the patient the evening of 10/02/2016. She has been less tearful. REVIEW OF SYSTEMS: No CV, , eye, ENT, pulmonary system symptoms on review. Reliability poor. MENTAL STATUS EXAM: Oriented to herself. Insight, judgment, recent and remote memory, attention, concentration, fund of knowledge poor, consistent with her diagnoses as mentioned in my initial note. PLAN: Continue current psychotropics, Dilantin, melatonin, Ativan p.r.n. Seroquel, Zoloft, Zyprexa p.r.n., BuSpar, Depakote. Adjust as clinically indicated. MAN Leandro KO MD DR: [email or web address]/luz JOB#: [id number] / [id number]
[2016-10-04 06:13] VITALS: BP 143/68
[2016-10-04] MEDS: METOPROLOL SUCC 24HR ER 25 MG TAB.ER.24H. PO SCH ×2 (09:00→19:21)
[2016-10-04] MEDS: QUEtiapine 25 MG TABLET. PO SCH ×4 (09:26→19:22)
[2016-10-04] MEDS: CYANOCOBALAMIN (VITAMIN B-12) 250 MCG TABLET PO SCH (09:26)
[2016-10-04] MEDS: DIVALPROEX 125 MG CAP.SPRINK PO SCH ×4 (09:26→19:20)
[2016-10-04] MEDS: SERTRALINE 50 MG TABLET. PO SCH (09:26)
[2016-10-04] MEDS: CETIRIZINE HCL 10 MG TABLET PO SCH (09:27)
[2016-10-04] MEDS: busPIRone 5 MG TABLET. PO SCH ×4 (09:27→19:22)
[2016-10-04] MEDS: GLUCOSAMINE 500 MG CAPSULE PO SCH (09:27)
[2016-10-04] MEDS: POTASSIUM CHLORIDE 20 MEQ TABLET.ER. PO SCH ×2 (09:27→19:22)
[2016-10-04] MEDS: ASPIRIN 81 MG TAB.CHEW PO SCH (09:27)
[2016-10-04] MEDS: PHENYTOIN SODIUM EXTENDED 100 MG CAPSULE PO SCH ×2 (09:28→19:20)
[2016-10-04] MEDS: POLYVINYL ALCOHOL 1.4% OPHTH SOLUTION 15ML BOTTLE. OU SCH ×3 (09:28→19:27)
[2016-10-04] MEDS: DICLOFENAC SODIUM 1% TOPICAL GEL 100GM TUBE. TP SCH ×2 (09:31→19:27)
[2016-10-04 16:16] VITALS: BP 115/62
[2016-10-04] MEDS: traZODone 50 MG TABLET. PO PRN (19:21)
[2016-10-04] MEDS: MELATONIN 3 MG TABLET PO SCH (19:21)
--- NOTE | 2016-10-04 21:31 | PDOC ---
Exam Dane Demential Exam: Dane Note: Please also refer to the separate dictated note~for this date of service dictated separately.~Patient seen individually. Discussed the patient with Nursing staff reviewed the chart.~Reviewed interim history and current functioning. Reviewed vital signs,~Labs/ Radiology~and current medications noted below. Continue current treatment with the changes noted in the dictated addendum note Assessment: Vital Signs: Vital Signs Date Time Temp Pulse Resp B/P (MAP) Pulse Ox O2 Delivery O2 Flow Rate FiO2 10/04/16 19:21 78 115/62 10/04/16 16:16 97.4 18 97 10/03/16 16:06 Room Air I&O Intake and Output 10/04/16 06:59 Intake Total 1080 ml Balance 1080 ml Intake Oral 1080 ml Current Medications: Meds: Current Medications Acetaminophen (Tylenol) 650 mg PRN Q6HRS PRN PO PAIN / TEMP Last administered on 09/24/16 14:18; Start 09/13/16 at 13:00 Multi-Ingredient Ointment (Analgesic [place]) 1 beck PRN QID PRN TP MUSCLE PAIN; Start 09/13/16 at 14:00 Al Hydroxide/Mg Hydroxide (Mylanta Plus Xs) 15 ml PRN AFTMEALHC PRN PO DYSPEPSIA; Start 09/13/16 at 14:00 Magnesium Hydroxide (Milk Of Magnesia) 2,400 mg PRN QHS PRN PO CONSTIPATION Last administered on 09/19/16 11:47; Start 09/13/16 at 14:00 Lorazepam (Ativan) 0.25 mg TID PO Last administered on 09/17/16 19:35; Start 09/13/16 at 21:00; Stop 09/17/16 at 22:21; Status DC Lorazepam (Ativan) 0.5 mg PRN TID PRN PO ANXIETY / AGITATION Last administered on 10/02/16 22:35; Start 09/13/16 at 16:00 Phenytoin Sodium (Dilantin) 100 mg BID PO Last administered on 10/04/16 19:20 ; Start 09/13/16 at 21:00 Quetiapine Fumarate (SEROquel) 25 mg BID PO Last administered on 09/16/16 09: 00; Start 09/13/16 at 21:00; Stop 09/16/16 at 18:14; Status DC Melatonin 3 mg HS PO Last administered on 10/04/16 19:21; Start 09/13/16 at 21: 00 Aspirin (Children'S Aspirin) 81 mg DAILY PO Last administered on 10/04/16 09: 27; Start 09/14/16 at 09:00 Diclofenac Sodium (Voltaren) 1 beck BID TP Last administered on 10/04/16 19:27 ; Start 09/13/16 at 21:00 Metoprolol Succinate (Toprol Xl) 25 mg BID PO Last administered on 10/04/16 19 :21; Start 09/13/16 at 21:00 Glucosamine Sulfate (Glucosamine) 1,000 mg DAILY PO Last administered on 09:27; Start 09/14/16 at 09:00 Cetirizine HCl (ZyrTEC) 10 mg DAILY PO Last administered on 10/04/16 09:27; Start 09/14/16 at 09:00 Olanzapine (ZyPREXA ZYDIS) 2.5 mg PRN Q4HRS PRN PO PSYCHOSIS Last administered on 10/04/16 10:49; Start 09/14/16 at 14:15 Divalproex Sodium (Depakote Sprinkles) 250 mg HS PO Last administered on 19:32; Start 09/15/16 at 21:00; Stop 09/19/16 at 18:12; Status DC Divalproex Sodium (Depakote Sprinkles) 125 mg BID92 PO Last administered on 13:53; Start 09/15/16 at 09:00; Stop 09/19/16 at 18:12; Status DC Vitamin D (Vitamin D3) 50,000 unit WEEKLY PO Last administered on 09/30/16 09: 03; Start 09/16/16 at 11:30 Quetiapine Fumarate (SEROquel) 25 mg BIDACBL PO ; Start 09/17/16 at 07:30; Stop 09/17/16 at 07:30; Status DC Quetiapine Fumarate (SEROquel) 12.5 mg NOON PO Last administered on 09/22/16 12:17; Start 09/17/16 at 12:00; Stop 09/22/16 at 18:38; Status DC Sertraline HCl (Zoloft) 25 mg DAILY PO Last administered on 09/18/16 08:06; Start 09/17/16 at 09:00; Stop 09/19/16 at 08:59; Status DC Sertraline HCl (Zoloft) 50 mg DAILY PO Last administered on 10/01/16 08:10; Start 09/19/16 at 09:00; Stop 10/01/16 at 18:05; Status DC Quetiapine Fumarate (SEROquel) 25 mg BID94 PO Last administered on 09/17/16 16 :15; Start 09/17/16 at 09:00; Stop 09/17/16 at 22:21; Status DC Lorazepam (Ativan) 0.125 mg TID PO Last administered on 09/22/16 14:18; Start 09/18/16 at 09:00; Stop 09/22/16 at 18:38; Status DC Quetiapine Fumarate (SEROquel) 25 mg TID PO Last administered on 09/22/16 14: 18; Start 09/18/16 at 09:00; Stop 09/22/16 at 18:38; Status DC Lorazepam (Ativan) 0.125 mg BID PO Last administered on 09/24/16 19:19; Start 09/22/16 at 21:00; Stop 09/25/16 at 20:59; Status DC Quetiapine Fumarate (SEROquel) 25 mg QID PO Last administered on 10/04/16 19: 22; Start 09/22/16 at 21:00 Lorazepam (Ativan) 0.125 mg DAILY PO Last administered on 09/28/16 08:08; Start 09/26/16 at 09:00; Stop 09/29/16 at 08:59; Status DC Buspirone HCl (Buspar) 5 mg BID PO Last administered on 09/25/16 19:29; Start 09/24/16 at 21:00; Stop 09/26/16 at 10:34; Status DC Buspirone HCl (Buspar) 5 mg QID PO Last administered on 10/04/16 19:22; Start 09/26/16 at 13:00 Divalproex Sodium (Depakote Sprinkles) 125 mg BID92 PO Last administered on 07:47; Start 09/27/16 at 09:00; Stop 09/29/16 at 11:04; Status DC Potassium Chloride (Klor-Con) 20 meq BID PO Last administered on 10/04/16 19: 22; Start 09/28/16 at 21:00 Divalproex Sodium (Depakote Sprinkles) 125 mg TID PO Last administered on 07:54; Start 09/29/16 at 14:00; Stop 10/03/16 at 10:05; Status DC Cyanocobalamin (Vitamin B-12) 250 mcg DAILY PO Last administered on 10/04/16 09:26; Start 09/30/16 at 12:30 Sertraline HCl (Zoloft) 75 mg DAILY PO Last administered on 10/04/16 09:26; Start 10/02/16 at 09:00 Artificial Tears (Artificial Tears) 1 drop TID OU Last administered on 19:27; Start 10/02/16 at 21:00 Divalproex Sodium (Depakote Sprinkles) 125 mg QID PO Last administered on 19:20; Start 10/03/16 at 13:00 Trazodone HCl (Desyrel) 25 mg PRN QHS PRN PO INSOMNIA Last administered on 10/04 19:21; Start 10/03/16 at 10:15 Active Scripts Active Reported Seroquel (Quetiapine Fumarate) 25 Mg Tablet 25 Mg PO BID Lorazepam Intensol (Lorazepam) 2 Mg/1 Ml Oral.conc 0.25 Ml SL PRN TID PRN Voltaren (Diclofenac Sodium) 100 Gm Gel..gram. 1 Beck TP BID Lorazepam 0.5 Mg Tablet 0.25 Mg PO TID Melatin (Melatonin) 3 Mg Tablet 3 Mg PO QHS Metoprolol Succinate ( Xl ) (Metoprolol Succinate) 25 Mg Tab.er.24h 25 Mg PO BID Dilantin (Phenytoin Sodium Extended) 100 Mg Capsule 100 Mg PO BID Glucosamine Sulfate (Glucosamine Sulfate 2KCL) 1,000 Mg Tablet 1,000 Mg PO DAILY Aspirin 81 Mg Tab.chew 81 Mg PO DAILY Claritin (Loratadine) 10 Mg Tablet 10 Mg PO DAILY Diagnosis: Problems: (1) Dementia with behavioral disturbance (2) Anxiety disorder (3) Dementia in Alzheimer's disease with delusions (4) Dementia in Alzheimer's disease with depression (5) Dementia, vascular, with delusions (6) Dementia, vascular, with depression (7) Impulse control disorder NAKIA KO MD Oct 04, 2016 21:31
--- NOTE | 2016-10-05 00:43 | PN ---
DATE: 10/03/2016 This is a late entry for 10/03/2016 and covers elements not covered in my initial note. SUBJECTIVE: The patient was staffed at a treatment team meeting the morning of 10/03/2016 with the entire team. Reviewed her history, diagnosis, current medications, progress, discharge, aftercare plans and placement options. We met with her individually the evening of 10/03/2016. Sleeping about 4-3/4 hours, appetite 75%. Valproic acid level 21. Previous evening, she was punching at nursing staff, received Zyprexa at 1957, Ativan at 2235 with some improvement. REVIEW OF SYSTEMS: No CV, , pulmonary, eye, ENT system symptoms on review. Reliability poor. She is anxious, somewhat paranoid as I sat with her. MENTAL STATUS EXAM: Insight, judgment, recent and remote memory, attention, concentration, fund of knowledge poor, consistent with her diagnosis mentioned in my initial note. PLAN: Start trazodone 25 mg at bedtime p.r.n., may repeat x 1 for insomnia. Valproic acid level is 21. Increase Depakote Sprinkles from 125 mg 3 times a day to 125 mg 4 times a day. Check labs level in 3 days. Adjust further as clinically indicated. NAKIA KO MD DR: LUCRECIA/luz JOB#: [id number] / [id number]
[2016-10-05 06:00] VITALS: BP 171/70
[2016-10-05] MEDS: GLUCOSAMINE 500 MG CAPSULE PO SCH (08:33)
[2016-10-05] MEDS: DIVALPROEX 125 MG CAP.SPRINK PO SCH ×4 (08:33→20:02)
[2016-10-05] MEDS: CETIRIZINE HCL 10 MG TABLET PO SCH (08:34)
[2016-10-05] MEDS: POTASSIUM CHLORIDE 20 MEQ TABLET.ER. PO SCH ×2 (08:34→20:02)
[2016-10-05] MEDS: PHENYTOIN SODIUM EXTENDED 100 MG CAPSULE PO SCH ×2 (08:34→20:02)
[2016-10-05] MEDS: METOPROLOL SUCC 24HR ER 25 MG TAB.ER.24H. PO SCH ×2 (08:34→20:03)
[2016-10-05] MEDS: QUEtiapine 25 MG TABLET. PO SCH ×4 (08:34→20:03)
[2016-10-05] MEDS: busPIRone 5 MG TABLET. PO SCH ×4 (08:34→20:03)
[2016-10-05] MEDS: SERTRALINE 50 MG TABLET. PO SCH (08:35)
[2016-10-05] MEDS: CYANOCOBALAMIN (VITAMIN B-12) 250 MCG TABLET PO SCH (08:35)
[2016-10-05] MEDS: ASPIRIN 81 MG TAB.CHEW PO SCH (08:35)
[2016-10-05] MEDS: DICLOFENAC SODIUM 1% TOPICAL GEL 100GM TUBE. TP SCH ×2 (09:00→20:05)
[2016-10-05] MEDS: POLYVINYL ALCOHOL 1.4% OPHTH SOLUTION 15ML BOTTLE. OU SCH ×3 (09:00→20:06)
[2016-10-05 15:50] VITALS: BP 133/59
--- NOTE | 2016-10-05 18:14 | PN ---
DATE: 10/04/2016 PSYCHIATRIC PROGRESS NOTE This is a late entry of 10/04/2016 cover elements not covered in my initial note on 10/04/2016. SUBJECTIVE: The patient was seen individually evening of 10/04/2016. 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 She has taken her medications whole later this morning of 10/04/2016, received p.r.n. x 1 at 11:00 a.m. due to anxiety, tearfulness, mood lability. REVIEW OF SYSTEMS: No CV, , pulmonary, eye, ENT system symptoms on review. Reliability poor. MENTAL STATUS EXAM: Oriented to herself. Insight, judgment, recent and remote memory, attention, concentration, fund of knowledge poor, consistent with her diagnosis mentioned in my initial note. PLAN: Continue psychotropics mentioned in my initial note. Check labs level on 10/06/2016, adjust Depakote thereafter. NAKIA KO MD DR: [email or web address]/luz JOB#: [id number] / [id number]
[2016-10-05] MEDS: MELATONIN 3 MG TABLET PO SCH (20:02)
[2016-10-05] MEDS: traZODone 50 MG TABLET. PO PRN (20:02)
--- NOTE | 2016-10-05 21:39 | PDOC ---
Exam Daen Demential Exam: Dane Note: Please also refer to the separate dictated note~for this date of service dictated separately.~Patient seen individually. Discussed the patient with Nursing staff reviewed the chart.~Reviewed interim history and current functioning. Reviewed vital signs,~Labs/ Radiology~and current medications noted below. Continue current treatment with the changes noted in the dictated addendum note Assessment: Vital Signs: Vital Signs Date Time Temp Pulse Resp B/P (MAP) Pulse Ox O2 Delivery O2 Flow Rate FiO2 10/05/16 20:03 94 133/59 10/05/16 15:50 98.3 21 98 10/03/16 16:06 Room Air I&O Intake and Output 10/05/16 07:00 Intake Total 840 ml Balance 840 ml Intake Oral 840 ml Current Medications: Meds: Current Medications Acetaminophen (Tylenol) 650 mg PRN Q6HRS PRN PO PAIN / TEMP Last administered on 09/24/16 14:18; Start 09/13/16 at 13:00 Multi-Ingredient Ointment (Analgesic [place]) 1 beck PRN QID PRN TP MUSCLE PAIN; Start 09/13/16 at 14:00 Al Hydroxide/Mg Hydroxide (Mylanta Plus Xs) 15 ml PRN AFTMEALHC PRN PO DYSPEPSIA; Start 09/13/16 at 14:00 Magnesium Hydroxide (Milk Of Magnesia) 2,400 mg PRN QHS PRN PO CONSTIPATION Last administered on 09/19/16 11:47; Start 09/13/16 at 14:00 Lorazepam (Ativan) 0.25 mg TID PO Last administered on 09/17/16 19:35; Start 09/13/16 at 21:00; Stop 09/17/16 at 22:21; Status DC Lorazepam (Ativan) 0.5 mg PRN TID PRN PO ANXIETY / AGITATION Last administered on 10/02/16 22:35; Start 09/13/16 at 16:00 Phenytoin Sodium (Dilantin) 100 mg BID PO Last administered on 10/05/16 20:02 ; Start 09/13/16 at 21:00 Quetiapine Fumarate (SEROquel) 25 mg BID PO Last administered on 09/16/16 09: 00; Start 09/13/16 at 21:00; Stop 09/16/16 at 18:14; Status DC Melatonin 3 mg HS PO Last administered on 10/05/16 20:02; Start 09/13/16 at 21: 00 Aspirin (Children'S Aspirin) 81 mg DAILY PO Last administered on 10/05/16 08: 35; Start 09/14/16 at 09:00 Diclofenac Sodium (Voltaren) 1 beck BID TP Last administered on 10/05/16 20:05 ; Start 09/13/16 at 21:00 Metoprolol Succinate (Toprol Xl) 25 mg BID PO Last administered on 10/05/16 20 :03; Start 09/13/16 at 21:00 Glucosamine Sulfate (Glucosamine) 1,000 mg DAILY PO Last administered on 08:33; Start 09/14/16 at 09:00 Cetirizine HCl (ZyrTEC) 10 mg DAILY PO Last administered on 10/05/16 08:34; Start 09/14/16 at 09:00 Olanzapine (ZyPREXA ZYDIS) 2.5 mg PRN Q4HRS PRN PO PSYCHOSIS Last administered on 10/04/16 10:49; Start 09/14/16 at 14:15 Divalproex Sodium (Depakote Sprinkles) 250 mg HS PO Last administered on 19:32; Start 09/15/16 at 21:00; Stop 09/19/16 at 18:12; Status DC Divalproex Sodium (Depakote Sprinkles) 125 mg BID92 PO Last administered on 13:53; Start 09/15/16 at 09:00; Stop 09/19/16 at 18:12; Status DC Vitamin D (Vitamin D3) 50,000 unit WEEKLY PO Last administered on 09/30/16 09: 03; Start 09/16/16 at 11:30 Quetiapine Fumarate (SEROquel) 25 mg BIDACBL PO ; Start 09/17/16 at 07:30; Stop 09/17/16 at 07:30; Status DC Quetiapine Fumarate (SEROquel) 12.5 mg NOON PO Last administered on 09/22/16 12:17; Start 09/17/16 at 12:00; Stop 09/22/16 at 18:38; Status DC Sertraline HCl (Zoloft) 25 mg DAILY PO Last administered on 09/18/16 08:06; Start 09/17/16 at 09:00; Stop 09/19/16 at 08:59; Status DC Sertraline HCl (Zoloft) 50 mg DAILY PO Last administered on 10/01/16 08:10; Start 09/19/16 at 09:00; Stop 10/01/16 at 18:05; Status DC Quetiapine Fumarate (SEROquel) 25 mg BID94 PO Last administered on 09/17/16 16 :15; Start 09/17/16 at 09:00; Stop 09/17/16 at 22:21; Status DC Lorazepam (Ativan) 0.125 mg TID PO Last administered on 09/22/16 14:18; Start 09/18/16 at 09:00; Stop 09/22/16 at 18:38; Status DC Quetiapine Fumarate (SEROquel) 25 mg TID PO Last administered on 09/22/16 14: 18; Start 09/18/16 at 09:00; Stop 09/22/16 at 18:38; Status DC Lorazepam (Ativan) 0.125 mg BID PO Last administered on 09/24/16 19:19; Start 09/22/16 at 21:00; Stop 09/25/16 at 20:59; Status DC Quetiapine Fumarate (SEROquel) 25 mg QID PO Last administered on 10/05/16 20: 03; Start 09/22/16 at 21:00 Lorazepam (Ativan) 0.125 mg DAILY PO Last administered on 09/28/16 08:08; Start 09/26/16 at 09:00; Stop 09/29/16 at 08:59; Status DC Buspirone HCl (Buspar) 5 mg BID PO Last administered on 09/25/16 19:29; Start 09/24/16 at 21:00; Stop 09/26/16 at 10:34; Status DC Buspirone HCl (Buspar) 5 mg QID PO Last administered on 10/05/16 20:03; Start 09/26/16 at 13:00 Divalproex Sodium (Depakote Sprinkles) 125 mg BID92 PO Last administered on 07:47; Start 09/27/16 at 09:00; Stop 09/29/16 at 11:04; Status DC Potassium Chloride (Klor-Con) 20 meq BID PO Last administered on 10/05/16 20: 02; Start 09/28/16 at 21:00 Divalproex Sodium (Depakote Sprinkles) 125 mg TID PO Last administered on 07:54; Start 09/29/16 at 14:00; Stop 10/03/16 at 10:05; Status DC Cyanocobalamin (Vitamin B-12) 250 mcg DAILY PO Last administered on 10/05/16 08:35; Start 09/30/16 at 12:30 Sertraline HCl (Zoloft) 75 mg DAILY PO Last administered on 10/05/16 08:35; Start 10/02/16 at 09:00 Artificial Tears (Artificial Tears) 1 drop TID OU Last administered on 20:06; Start 10/02/16 at 21:00 Divalproex Sodium (Depakote Sprinkles) 125 mg QID PO Last administered on 20:02; Start 10/03/16 at 13:00 Trazodone HCl (Desyrel) 25 mg PRN QHS PRN PO INSOMNIA Last administered on 10/05 20:02; Start 10/03/16 at 10:15 Active Scripts Active Reported Seroquel (Quetiapine Fumarate) 25 Mg Tablet 25 Mg PO BID Lorazepam Intensol (Lorazepam) 2 Mg/1 Ml Oral.conc 0.25 Ml SL PRN TID PRN Voltaren (Diclofenac Sodium) 100 Gm Gel..gram. 1 Beck TP BID Lorazepam 0.5 Mg Tablet 0.25 Mg PO TID Melatin (Melatonin) 3 Mg Tablet 3 Mg PO QHS Metoprolol Succinate ( Xl ) (Metoprolol Succinate) 25 Mg Tab.er.24h 25 Mg PO BID Dilantin (Phenytoin Sodium Extended) 100 Mg Capsule 100 Mg PO BID Glucosamine Sulfate (Glucosamine Sulfate 2KCL) 1,000 Mg Tablet 1,000 Mg PO DAILY Aspirin 81 Mg Tab.chew 81 Mg PO DAILY Claritin (Loratadine) 10 Mg Tablet 10 Mg PO DAILY Diagnosis: Problems: (1) Dementia with behavioral disturbance (2) Anxiety disorder (3) Dementia in Alzheimer's disease with delusions (4) Dementia in Alzheimer's disease with depression (5) Dementia, vascular, with delusions (6) Dementia, vascular, with depression (7) Impulse control disorder NAKIA KO MD Oct 05, 2016 21:39
[2016-10-06 05:53] VITALS: BP 146/62
[2016-10-06 06:50] LABS: BASO % 1 % (0-3); EOS # 0.2 x10^3/uL (0.0-0.7); EOS % 6 % (0-3); HEMATOCRIT 35.6 % (36.0-47.0); HEMOGLOBIN 11.8 g/dL (12.0-15.5); LYMPH # 1.2 x10^3/uL (1.0-4.8); LYMPH % 27 % (24-48); MEAN CORPUSCULAR HEMOGLOBIN 31 pg (25-35); MEAN CORPUSCULAR HGB CONC 33 g/dL (31-37); MEAN CORPUSCULAR VOLUME 92 fL (79-100); MONO # 0.4 x10^3/uL (0.0-1.1); MONO % 9 % (0-9); NEUT # 2.5 x10^3uL (1.8-7.7); NEUT % 57 % (31-73); PLATELET COUNT 272 x10^3/uL (140-400); RED BLOOD COUNT 3.88 x10^6/uL (3.50-5.40); RED CELL DISTRIBUTION WIDTH 14.7 % (11.5-14.5); WHITE BLOOD COUNT 4.3 x10^3/uL (4.0-11.0)
[2016-10-06 06:57] LABS: ALBUMIN 3.5 g/dL (3.4-5.0); ALK PHOS 163 U/L (46-116); ALT (SGPT) 26 U/L (14-59); ANION GAP 8 (6-14); AST (SGOT) 20 U/L (15-37); BLOOD UREA NITROGEN 12 mg/dL (7-20); BUN/CREATININE RATIO 15 (6-20); CALCIUM 8.5 mg/dL (8.5-10.1); CARBON DIOXIDE 29 mmol/L (21-32); CHLORIDE 106 mmol/L (98-107); CREATININE 0.8 mg/dL (0.6-1.0); GFR 68.2; GLUCOSE 81 mg/dL (70-99); POTASSIUM 3.8 mmol/L (3.5-5.1); SODIUM 143 mmol/L (136-145); TOTAL BILIRUBIN 0.3 mg/dL (0.2-1.0); TOTAL PROTEIN 7.1 g/dL (6.4-8.2)
[2016-10-06 06:59] LABS: VAL ACID 35 mcg/mL (50-100)
[2016-10-06] MEDS: SERTRALINE 50 MG TABLET. PO SCH (08:25)
[2016-10-06] MEDS: busPIRone 5 MG TABLET. PO SCH ×4 (08:25→20:13)
[2016-10-06] MEDS: METOPROLOL SUCC 24HR ER 25 MG TAB.ER.24H. PO SCH ×2 (08:26→20:12)
[2016-10-06] MEDS: CETIRIZINE HCL 10 MG TABLET PO SCH (08:26)
[2016-10-06] MEDS: POTASSIUM CHLORIDE 20 MEQ TABLET.ER. PO SCH ×2 (08:26→20:13)
[2016-10-06] MEDS: PHENYTOIN SODIUM EXTENDED 100 MG CAPSULE PO SCH ×2 (08:26→20:12)
[2016-10-06] MEDS: DIVALPROEX 125 MG CAP.SPRINK PO SCH ×4 (08:27→20:11)
[2016-10-06] MEDS: CYANOCOBALAMIN (VITAMIN B-12) 250 MCG TABLET PO SCH (08:27)
[2016-10-06] MEDS: ASPIRIN 81 MG TAB.CHEW PO SCH (08:27)
[2016-10-06] MEDS: GLUCOSAMINE 500 MG CAPSULE PO SCH (08:27)
[2016-10-06] MEDS: QUEtiapine 25 MG TABLET. PO SCH ×4 (08:27→20:13)
[2016-10-06] MEDS: POLYVINYL ALCOHOL 1.4% OPHTH SOLUTION 15ML BOTTLE. OU SCH ×3 (08:28→20:28)
[2016-10-06] MEDS: DICLOFENAC SODIUM 1% TOPICAL GEL 100GM TUBE. TP SCH ×2 (08:28→20:28)
--- NOTE | 2016-10-06 12:16 | PN ---
DATE: 10/05/2016 PSYCHIATRIC PROGRESS NOTE This is a late entry 10/05/2016, covers elements not covered in my initial note. SUBJECTIVE: I met with the patient the evening of 10/05/2016. She slept 7 hours previous evening, resistive to medications, tearful, swatting at staff, agitated, exit seeking at times. REVIEW OF SYSTEMS: No CV, , pulmonary, eye, ENT system symptoms on review. Reliability poor. MENTAL STATUS EXAM: Oriented to herself. Insight, judgment, recent and remote memory, attention, concentration, fund of knowledge poor, consistent with her diagnoses mentioned in my initial note. PLAN: Check valproic acid level morning of 10/06/2016, then adjust the Depakote, continues rest of the psychotropics noted. MAN Leandro KO MD DR: LUCRECIA/luz JOB#: [id number] / [id number]
[2016-10-06 16:23] VITALS: BP 112/74
--- NOTE | 2016-10-06 19:45 | PDOC ---
Exam Dane Demential Exam: Dane Note: Please also refer to the separate dictated note~for this date of service dictated separately.~Patient seen individually. Discussed the patient with Nursing staff reviewed the chart.~Reviewed interim history and current functioning. Reviewed vital signs,~Labs/ Radiology~and current medications noted below. Continue current treatment with the changes noted in the dictated addendum note Assessment: Vital Signs: Vital Signs Date Time Temp Pulse Resp B/P (MAP) Pulse Ox O2 Delivery O2 Flow Rate FiO2 10/06/16 16:23 98.1 79 20 112/74 (87) 93 10/03/16 16:06 Room Air I&O Intake and Output 10/06/16 07:00 Intake Total 720 ml Balance 720 ml Intake Oral 720 ml Labs: Laboratory Tests Test 10/06/16 06:19 White Blood Count 4.3 x10^3/uL (4.0-11.0) Red Blood Count 3.88 x10^6/uL (3.50-5.40) Hemoglobin 11.8 g/dL (12.0-15.5) L Hematocrit 35.6 % (36.0-47.0) L Mean Corpuscular Volume 92 fL (79-100) Mean Corpuscular Hemoglobin 31 pg (25-35) Mean Corpuscular Hemoglobin Concent 33 g/dL (31-37) Red Cell Distribution Width 14.7 % (11.5-14.5) H Platelet Count 272 x10^3/uL (140-400) Neutrophils (%) (Auto) 57 % (31-73) Lymphocytes (%) (Auto) 27 % (24-48) Monocytes (%) (Auto) 9 % (0-9) Eosinophils (%) (Auto) 6 % (0-3) H Basophils (%) (Auto) 1 % (0-3) Neutrophils # (Auto) 2.5 x10^3uL (1.8-7.7) Lymphocytes # (Auto) 1.2 x10^3/uL (1.0-4.8) Monocytes # (Auto) 0.4 x10^3/uL (0.0-1.1) Eosinophils # (Auto) 0.2 x10^3/uL (0.0-0.7) Basophils # (Auto) 0.0 x10^3/uL (0.0-0.2) Sodium Level 143 mmol/L (136-145) Potassium Level 3.8 mmol/L (3.5-5.1) Chloride Level 106 mmol/L (98-107) Carbon Dioxide Level 29 mmol/L (21-32) Anion Gap 8 (6-14) Blood Urea Nitrogen 12 mg/dL (7-20) Creatinine 0.8 mg/dL (0.6-1.0) Estimated GFR (Cockcroft-Gault) 68.2 BUN/Creatinine Ratio 15 (6-20) Glucose Level 81 mg/dL (70-99) Calcium Level 8.5 mg/dL (8.5-10.1) Total Bilirubin 0.3 mg/dL (0.2-1.0) Aspartate Amino Transferase (AST) 20 U/L (15-37) Alanine Aminotransferase (ALT) 26 U/L (14-59) Alkaline Phosphatase 163 U/L (46-116) H Total Protein 7.1 g/dL (6.4-8.2) Albumin 3.5 g/dL (3.4-5.0) Albumin/Globulin Ratio 1.0 (1.0-1.7) Valproic Acid Level 35 mcg/mL (50-100) L Valproic Acid Last Dose Date 10/05/16 Valproic Acid Last Dose Time 2100 Current Medications: Meds: Current Medications Acetaminophen (Tylenol) 650 mg PRN Q6HRS PRN PO PAIN / TEMP Last administered on 09/24/16 14:18; Start 09/13/16 at 13:00 Multi-Ingredient Ointment (Analgesic [place]) 1 beck PRN QID PRN TP MUSCLE PAIN; Start 09/13/16 at 14:00 Al Hydroxide/Mg Hydroxide (Mylanta Plus Xs) 15 ml PRN AFTMEALHC PRN PO DYSPEPSIA; Start 09/13/16 at 14:00 Magnesium Hydroxide (Milk Of Magnesia) 2,400 mg PRN QHS PRN PO CONSTIPATION Last administered on 09/19/16 11:47; Start 09/13/16 at 14:00 Lorazepam (Ativan) 0.25 mg TID PO Last administered on 09/17/16 19:35; Start 09/13/16 at 21:00; Stop 09/17/16 at 22:21; Status DC Lorazepam (Ativan) 0.5 mg PRN TID PRN PO ANXIETY / AGITATION Last administered on 10/02/16 22:35; Start 09/13/16 at 16:00 Phenytoin Sodium (Dilantin) 100 mg BID PO Last administered on 10/06/16 08:26 ; Start 09/13/16 at 21:00 Quetiapine Fumarate (SEROquel) 25 mg BID PO Last administered on 09/16/16 09: 00; Start 09/13/16 at 21:00; Stop 09/16/16 at 18:14; Status DC Melatonin 3 mg HS PO Last administered on 10/05/16 20:02; Start 09/13/16 at 21: 00 Aspirin (Children'S Aspirin) 81 mg DAILY PO Last administered on 10/06/16 08: 27; Start 09/14/16 at 09:00 Diclofenac Sodium (Voltaren) 1 beck BID TP Last administered on 10/06/16 08:28 ; Start 09/13/16 at 21:00 Metoprolol Succinate (Toprol Xl) 25 mg BID PO Last administered on 10/06/16 08 :26; Start 09/13/16 at 21:00 Glucosamine Sulfate (Glucosamine) 1,000 mg DAILY PO Last administered on 08:27; Start 09/14/16 at 09:00 Cetirizine HCl (ZyrTEC) 10 mg DAILY PO Last administered on 10/06/16 08:26; Start 09/14/16 at 09:00 Olanzapine (ZyPREXA ZYDIS) 2.5 mg PRN Q4HRS PRN PO PSYCHOSIS Last administered on 10/04/16 10:49; Start 09/14/16 at 14:15 Divalproex Sodium (Depakote Sprinkles) 250 mg HS PO Last administered on 19:32; Start 09/15/16 at 21:00; Stop 09/19/16 at 18:12; Status DC Divalproex Sodium (Depakote Sprinkles) 125 mg BID92 PO Last administered on 13:53; Start 09/15/16 at 09:00; Stop 09/19/16 at 18:12; Status DC Vitamin D (Vitamin D3) 50,000 unit WEEKLY PO Last administered on 09/30/16 09: 03; Start 09/16/16 at 11:30 Quetiapine Fumarate (SEROquel) 25 mg BIDACBL PO ; Start 09/17/16 at 07:30; Stop 09/17/16 at 07:30; Status DC Quetiapine Fumarate (SEROquel) 12.5 mg NOON PO Last administered on 09/22/16 12:17; Start 09/17/16 at 12:00; Stop 09/22/16 at 18:38; Status DC Sertraline HCl (Zoloft) 25 mg DAILY PO Last administered on 09/18/16 08:06; Start 09/17/16 at 09:00; Stop 09/19/16 at 08:59; Status DC Sertraline HCl (Zoloft) 50 mg DAILY PO Last administered on 10/01/16 08:10; Start 09/19/16 at 09:00; Stop 10/01/16 at 18:05; Status DC Quetiapine Fumarate (SEROquel) 25 mg BID94 PO Last administered on 09/17/16 16 :15; Start 09/17/16 at 09:00; Stop 09/17/16 at 22:21; Status DC Lorazepam (Ativan) 0.125 mg TID PO Last administered on 09/22/16 14:18; Start 09/18/16 at 09:00; Stop 09/22/16 at 18:38; Status DC Quetiapine Fumarate (SEROquel) 25 mg TID PO Last administered on 09/22/16 14: 18; Start 09/18/16 at 09:00; Stop 09/22/16 at 18:38; Status DC Lorazepam (Ativan) 0.125 mg BID PO Last administered on 09/24/16 19:19; Start 09/22/16 at 21:00; Stop 09/25/16 at 20:59; Status DC Quetiapine Fumarate (SEROquel) 25 mg QID PO Last administered on 10/06/16 17: 28; Start 09/22/16 at 21:00 Lorazepam (Ativan) 0.125 mg DAILY PO Last administered on 09/28/16 08:08; Start 09/26/16 at 09:00; Stop 09/29/16 at 08:59; Status DC Buspirone HCl (Buspar) 5 mg BID PO Last administered on 09/25/16 19:29; Start 09/24/16 at 21:00; Stop 09/26/16 at 10:34; Status DC Buspirone HCl (Buspar) 5 mg QID PO Last administered on 10/06/16 17:28; Start 09/26/16 at 13:00 Divalproex Sodium (Depakote Sprinkles) 125 mg BID92 PO Last administered on 07:47; Start 09/27/16 at 09:00; Stop 09/29/16 at 11:04; Status DC Potassium Chloride (Klor-Con) 20 meq BID PO Last administered on 10/06/16 08: 26; Start 09/28/16 at 21:00 Divalproex Sodium (Depakote Sprinkles) 125 mg TID PO Last administered on 07:54; Start 09/29/16 at 14:00; Stop 10/03/16 at 10:05; Status DC Cyanocobalamin (Vitamin B-12) 250 mcg DAILY PO Last administered on 10/06/16 08:27; Start 09/30/16 at 12:30 Sertraline HCl (Zoloft) 75 mg DAILY PO Last administered on 10/06/16 08:25; Start 10/02/16 at 09:00 Artificial Tears (Artificial Tears) 1 drop TID OU Last administered on 13:28; Start 10/02/16 at 21:00 Divalproex Sodium (Depakote Sprinkles) 125 mg QID PO Last administered on 17:28; Start 10/03/16 at 13:00 Trazodone HCl (Desyrel) 25 mg PRN QHS PRN PO INSOMNIA Last administered on 10/05 20:02; Start 10/03/16 at 10:15 Active Scripts Active Reported Seroquel (Quetiapine Fumarate) 25 Mg Tablet 25 Mg PO BID Lorazepam Intensol (Lorazepam) 2 Mg/1 Ml Oral.conc 0.25 Ml SL PRN TID PRN Voltaren (Diclofenac Sodium) 100 Gm Gel..gram. 1 Beck TP BID Lorazepam 0.5 Mg Tablet 0.25 Mg PO TID Melatin (Melatonin) 3 Mg Tablet 3 Mg PO QHS Metoprolol Succinate ( Xl ) (Metoprolol Succinate) 25 Mg Tab.er.24h 25 Mg PO BID Dilantin (Phenytoin Sodium Extended) 100 Mg Capsule 100 Mg PO BID Glucosamine Sulfate (Glucosamine Sulfate 2KCL) 1,000 Mg Tablet 1,000 Mg PO DAILY Aspirin 81 Mg Tab.chew 81 Mg PO DAILY Claritin (Loratadine) 10 Mg Tablet 10 Mg PO DAILY Diagnosis: Problems: (1) Dementia with behavioral disturbance (2) Anxiety disorder (3) Dementia in Alzheimer's disease with delusions (4) Dementia in Alzheimer's disease with depression (5) Dementia, vascular, with delusions (6) Dementia, vascular, with depression (7) Impulse control disorder NAKIA KO MD Oct 06, 2016 19:45
[2016-10-06] MEDS: traZODone 50 MG TABLET. PO PRN (20:13)
[2016-10-06] MEDS: MELATONIN 3 MG TABLET PO SCH (20:28)
[2016-10-07 06:08] VITALS: BP 154/83
[2016-10-07] MEDS: POLYVINYL ALCOHOL 1.4% OPHTH SOLUTION 15ML BOTTLE. OU SCH ×3 (08:02→19:25)
[2016-10-07] MEDS: CYANOCOBALAMIN (VITAMIN B-12) 250 MCG TABLET PO SCH (08:02)
[2016-10-07] MEDS: busPIRone 5 MG TABLET. PO SCH ×4 (08:03→19:28)
[2016-10-07] MEDS: SERTRALINE 50 MG TABLET. PO SCH (08:03)
[2016-10-07] MEDS: QUEtiapine 25 MG TABLET. PO SCH ×4 (08:03→19:17)
[2016-10-07] MEDS: GLUCOSAMINE 500 MG CAPSULE PO SCH (08:03)
[2016-10-07] MEDS: CETIRIZINE HCL 10 MG TABLET PO SCH (08:03)
[2016-10-07] MEDS: PHENYTOIN SODIUM EXTENDED 100 MG CAPSULE PO SCH ×2 (08:04→19:16)
[2016-10-07] MEDS: ASPIRIN 81 MG TAB.CHEW PO SCH (08:04)
[2016-10-07] MEDS: POTASSIUM CHLORIDE 20 MEQ TABLET.ER. PO SCH ×2 (08:04→19:17)
[2016-10-07] MEDS: DIVALPROEX 125 MG CAP.SPRINK PO SCH ×4 (08:04→19:17)
[2016-10-07] MEDS: METOPROLOL SUCC 24HR ER 25 MG TAB.ER.24H. PO SCH ×2 (08:04→19:16)
[2016-10-07] MEDS: DICLOFENAC SODIUM 1% TOPICAL GEL 100GM TUBE. TP SCH ×2 (08:05→19:25)
[2016-10-07] MEDS: CHOLECALCIFEROL (VITAMIN D3) 50,000 UNIT CAPSULE PO SCH (08:06)
[2016-10-07] MEDS: METHYL SALICYLATE/MENTHOL TOPICAL OINTMENT 29GM TUBE. TP PRN (12:14)
[2016-10-07] MEDS: ACETAMINOPHEN 325 MG TABLET PO PRN (12:14)
[2016-10-07 15:59] VITALS: BP 147/66
[2016-10-07] MEDS: MELATONIN 3 MG TABLET PO SCH (19:17)
--- NOTE | 2016-10-07 19:50 | PDOC ---
Exam Dane Demential Exam: Dane Note: Please also refer to the separate dictated note~for this date of service dictated separately.~Patient seen individually. Discussed the patient with Nursing staff reviewed the chart.~Reviewed interim history and current functioning. Reviewed vital signs,~Labs/ Radiology~and current medications noted below. Continue current treatment with the changes noted in the dictated addendum note Assessment: Vital Signs: Vital Signs Date Time Temp Pulse Resp B/P (MAP) Pulse Ox O2 Delivery O2 Flow Rate FiO2 10/07/16 19:16 61 147/66 10/07/16 15:59 98.2 18 100 10/03/16 16:06 Room Air I&O Intake and Output 10/07/16 07:00 Intake Total 600 ml Balance 600 ml Intake Oral 600 ml # Bowel Movements 1 Current Medications: Meds: Current Medications Acetaminophen (Tylenol) 650 mg PRN Q6HRS PRN PO PAIN / TEMP Last administered on 10/07/16 12:14; Start 09/13/16 at 13:00 Multi-Ingredient Ointment (Analgesic [place]) 1 beck PRN QID PRN TP MUSCLE PAIN Last administered on 10/07/16 12:14; Start 09/13/16 at 14:00 Al Hydroxide/Mg Hydroxide (Mylanta Plus Xs) 15 ml PRN AFTMEALHC PRN PO DYSPEPSIA; Start 09/13/16 at 14:00 Magnesium Hydroxide (Milk Of Magnesia) 2,400 mg PRN QHS PRN PO CONSTIPATION Last administered on 09/19/16 11:47; Start 09/13/16 at 14:00 Lorazepam (Ativan) 0.25 mg TID PO Last administered on 09/17/16 19:35; Start 09/13/16 at 21:00; Stop 09/17/16 at 22:21; Status DC Lorazepam (Ativan) 0.5 mg PRN TID PRN PO ANXIETY / AGITATION Last administered on 10/02/16 22:35; Start 09/13/16 at 16:00 Phenytoin Sodium (Dilantin) 100 mg BID PO Last administered on 10/07/16 19:16 ; Start 09/13/16 at 21:00 Quetiapine Fumarate (SEROquel) 25 mg BID PO Last administered on 09/16/16 09: 00; Start 09/13/16 at 21:00; Stop 09/16/16 at 18:14; Status DC Melatonin 3 mg HS PO Last administered on 10/07/16 19:17; Start 09/13/16 at 21: 00 Aspirin (Children'S Aspirin) 81 mg DAILY PO Last administered on 10/07/16 08: 04; Start 09/14/16 at 09:00 Diclofenac Sodium (Voltaren) 1 beck BID TP Last administered on 10/07/16 19:25 ; Start 09/13/16 at 21:00 Metoprolol Succinate (Toprol Xl) 25 mg BID PO Last administered on 10/07/16 19 :16; Start 09/13/16 at 21:00 Glucosamine Sulfate (Glucosamine) 1,000 mg DAILY PO Last administered on 08:03; Start 09/14/16 at 09:00 Cetirizine HCl (ZyrTEC) 10 mg DAILY PO Last administered on 10/07/16 08:03; Start 09/14/16 at 09:00 Olanzapine (ZyPREXA ZYDIS) 2.5 mg PRN Q4HRS PRN PO PSYCHOSIS Last administered on 10/07/16 15:06; Start 09/14/16 at 14:15 Divalproex Sodium (Depakote Sprinkles) 250 mg HS PO Last administered on 19:32; Start 09/15/16 at 21:00; Stop 09/19/16 at 18:12; Status DC Divalproex Sodium (Depakote Sprinkles) 125 mg BID92 PO Last administered on 13:53; Start 09/15/16 at 09:00; Stop 09/19/16 at 18:12; Status DC Vitamin D (Vitamin D3) 50,000 unit WEEKLY PO Last administered on 10/07/16 08: 06; Start 09/16/16 at 11:30 Quetiapine Fumarate (SEROquel) 25 mg BIDACBL PO ; Start 09/17/16 at 07:30; Stop 09/17/16 at 07:30; Status DC Quetiapine Fumarate (SEROquel) 12.5 mg NOON PO Last administered on 09/22/16 12:17; Start 09/17/16 at 12:00; Stop 09/22/16 at 18:38; Status DC Sertraline HCl (Zoloft) 25 mg DAILY PO Last administered on 09/18/16 08:06; Start 09/17/16 at 09:00; Stop 09/19/16 at 08:59; Status DC Sertraline HCl (Zoloft) 50 mg DAILY PO Last administered on 10/01/16 08:10; Start 09/19/16 at 09:00; Stop 10/01/16 at 18:05; Status DC Quetiapine Fumarate (SEROquel) 25 mg BID94 PO Last administered on 09/17/16 16 :15; Start 09/17/16 at 09:00; Stop 09/17/16 at 22:21; Status DC Lorazepam (Ativan) 0.125 mg TID PO Last administered on 09/22/16 14:18; Start 09/18/16 at 09:00; Stop 09/22/16 at 18:38; Status DC Quetiapine Fumarate (SEROquel) 25 mg TID PO Last administered on 09/22/16 14: 18; Start 09/18/16 at 09:00; Stop 09/22/16 at 18:38; Status DC Lorazepam (Ativan) 0.125 mg BID PO Last administered on 09/24/16 19:19; Start 09/22/16 at 21:00; Stop 09/25/16 at 20:59; Status DC Quetiapine Fumarate (SEROquel) 25 mg QID PO Last administered on 10/07/16 19: 17; Start 09/22/16 at 21:00 Lorazepam (Ativan) 0.125 mg DAILY PO Last administered on 09/28/16 08:08; Start 09/26/16 at 09:00; Stop 09/29/16 at 08:59; Status DC Buspirone HCl (Buspar) 5 mg BID PO Last administered on 09/25/16 19:29; Start 09/24/16 at 21:00; Stop 09/26/16 at 10:34; Status DC Buspirone HCl (Buspar) 5 mg QID PO Last administered on 10/07/16 19:28; Start 09/26/16 at 13:00 Divalproex Sodium (Depakote Sprinkles) 125 mg BID92 PO Last administered on 07:47; Start 09/27/16 at 09:00; Stop 09/29/16 at 11:04; Status DC Potassium Chloride (Klor-Con) 20 meq BID PO Last administered on 10/07/16 19: 17; Start 09/28/16 at 21:00 Divalproex Sodium (Depakote Sprinkles) 125 mg TID PO Last administered on 07:54; Start 09/29/16 at 14:00; Stop 10/03/16 at 10:05; Status DC Cyanocobalamin (Vitamin B-12) 250 mcg DAILY PO Last administered on 10/07/16 08:02; Start 09/30/16 at 12:30 Sertraline HCl (Zoloft) 75 mg DAILY PO Last administered on 10/07/16 08:03; Start 10/02/16 at 09:00 Artificial Tears (Artificial Tears) 1 drop TID OU Last administered on 19:25; Start 10/02/16 at 21:00 Divalproex Sodium (Depakote Sprinkles) 125 mg QID PO Last administered on 17:03; Start 10/03/16 at 13:00; Stop 10/07/16 at 18:09; Status DC Trazodone HCl (Desyrel) 25 mg PRN QHS PRN PO INSOMNIA Last administered on 10/06 20:13; Start 10/03/16 at 10:15 Divalproex Sodium (Depakote Sprinkles) 250 mg TID PO Last administered on 19:17; Start 10/07/16 at 21:00 Active Scripts Active Reported Seroquel (Quetiapine Fumarate) 25 Mg Tablet 25 Mg PO BID Lorazepam Intensol (Lorazepam) 2 Mg/1 Ml Oral.conc 0.25 Ml SL PRN TID PRN Voltaren (Diclofenac Sodium) 100 Gm Gel..gram. 1 Beck TP BID Lorazepam 0.5 Mg Tablet 0.25 Mg PO TID Melatin (Melatonin) 3 Mg Tablet 3 Mg PO QHS Metoprolol Succinate ( Xl ) (Metoprolol Succinate) 25 Mg Tab.er.24h 25 Mg PO BID Dilantin (Phenytoin Sodium Extended) 100 Mg Capsule 100 Mg PO BID Glucosamine Sulfate (Glucosamine Sulfate 2KCL) 1,000 Mg Tablet 1,000 Mg PO DAILY Aspirin 81 Mg Tab.chew 81 Mg PO DAILY Claritin (Loratadine) 10 Mg Tablet 10 Mg PO DAILY Diagnosis: Problems: (1) Dementia with behavioral disturbance (2) Anxiety disorder (3) Dementia in Alzheimer's disease with delusions (4) Dementia in Alzheimer's disease with depression (5) Dementia, vascular, with delusions (6) Dementia, vascular, with depression (7) Impulse control disorder NAKIA KO MD Oct 07, 2016 19:50
--- NOTE | 2016-10-08 00:52 | PN ---
DATE: 10/06/2016 This late entry 10/06/2016 covers elements not covered in my initial note. SUBJECTIVE: The patient was seen individually evening of 10/06/2016. The patient has been having difficulty with boundaries and has been "touching and feeling the guys" per nursing report. On observation and assessment, this does not have any sexual behavior, but rather disinhibited consistent with her dementia. Meds have been hidden in ice cream, tearful in the morning and late afternoon. REVIEW OF SYSTEMS: No CV, , eye, ENT or pulmonary system symptoms on review. Reliability poor. MENTAL STATUS EXAM: Oriented to herself. Insight, judgment, recent and remote memory, attention, concentration, fund of knowledge poor, consistent with her diagnosis. LABORATORY DATA: Reviewed. Valproic acid level is 35, subtherapeutic. PLAN: We will increase the Depakote Sprinkles from 125 four times a day to 250 mg 3 times a day. Check labs level, but we will make this change on 10/07/2016 depending on her progress between 10/06/2016 and 10/07/2016. Maintain the rest unchanged for now. MAN Leandro KO MD DR: [email or web address] JOB#: [id number] / [id number]
[2016-10-08] MEDS: ACETAMINOPHEN 325 MG TABLET PO PRN (04:59)
[2016-10-08 06:32] VITALS: BP 119/70
[2016-10-08] MEDS: SERTRALINE 50 MG TABLET. PO SCH (07:49)
[2016-10-08] MEDS: POTASSIUM CHLORIDE 20 MEQ TABLET.ER. PO SCH ×2 (07:50→19:57)
[2016-10-08] MEDS: DIVALPROEX 125 MG CAP.SPRINK PO SCH ×3 (07:50→17:01)
[2016-10-08] MEDS: GLUCOSAMINE 500 MG CAPSULE PO SCH (07:50)
[2016-10-08] MEDS: CETIRIZINE HCL 10 MG TABLET PO SCH (07:50)
[2016-10-08] MEDS: CYANOCOBALAMIN (VITAMIN B-12) 250 MCG TABLET PO SCH (07:51)
[2016-10-08] MEDS: METOPROLOL SUCC 24HR ER 25 MG TAB.ER.24H. PO SCH ×2 (07:51→19:56)
[2016-10-08] MEDS: PHENYTOIN SODIUM EXTENDED 100 MG CAPSULE PO SCH ×2 (07:52→19:55)
[2016-10-08] MEDS: QUEtiapine 25 MG TABLET. PO SCH ×4 (07:52→19:57)
[2016-10-08] MEDS: ASPIRIN 81 MG TAB.CHEW PO SCH (07:52)
[2016-10-08] MEDS: busPIRone 5 MG TABLET. PO SCH ×4 (07:53→19:57)
[2016-10-08] MEDS: POLYVINYL ALCOHOL 1.4% OPHTH SOLUTION 15ML BOTTLE. OU SCH ×3 (07:54→19:58)
[2016-10-08] MEDS: DICLOFENAC SODIUM 1% TOPICAL GEL 100GM TUBE. TP SCH ×2 (07:54→19:58)
[2016-10-08 13:38] LABS: BASO % 0 % (0-3); EOS # 0.2 x10^3/uL (0.0-0.7); EOS % 3 % (0-3); HEMATOCRIT 33.4 % (36.0-47.0); HEMOGLOBIN 11.3 g/dL (12.0-15.5); LYMPH # 1.3 x10^3/uL (1.0-4.8); LYMPH % 26 % (24-48); MEAN CORPUSCULAR HEMOGLOBIN 31 pg (25-35); MEAN CORPUSCULAR HGB CONC 34 g/dL (31-37); MEAN CORPUSCULAR VOLUME 92 fL (79-100); MONO # 0.4 x10^3/uL (0.0-1.1); MONO % 8 % (0-9); NEUT # 3.1 x10^3uL (1.8-7.7); NEUT % 63 % (31-73); PLATELET COUNT 266 x10^3/uL (140-400); RED BLOOD COUNT 3.64 x10^6/uL (3.50-5.40); RED CELL DISTRIBUTION WIDTH 14.7 % (11.5-14.5)
[2016-10-08 13:40] LABS: ALBUMIN 3.6 g/dL (3.4-5.0); CALCIUM 8.7 mg/dL (8.5-10.1); GFR 52.7; POTASSIUM 4.2 mmol/L (3.5-5.1); TOTAL BILIRUBIN 0.3 mg/dL (0.2-1.0); TOTAL PROTEIN 7.3 g/dL (6.4-8.2)
[2016-10-08 16:20] VITALS: BP 99/62
--- NOTE | 2016-10-08 19:56 | PDOC ---
Exam Dane Demential Exam: Dane Note: Please also refer to the separate dictated note~for this date of service dictated separately.~Patient seen individually. Discussed the patient with Nursing staff reviewed the chart.~Reviewed interim history and current functioning. Reviewed vital signs,~Labs/ Radiology~and current medications noted below. Continue current treatment with the changes noted in the dictated addendum note Assessment: Vital Signs: Vital Signs Date Time Temp Pulse Resp B/P (MAP) Pulse Ox O2 Delivery O2 Flow Rate FiO2 10/08/16 16:20 98.4 81 18 99/62 (74) 96 10/03/16 16:06 Room Air I&O Intake and Output 10/08/16 07:00 Intake Total 760 ml Balance 760 ml Intake Oral 760 ml Labs: Laboratory Tests Test 10/08/16 13:06 White Blood Count 5.0 x10^3/uL (4.0-11.0) Red Blood Count 3.64 x10^6/uL (3.50-5.40) Hemoglobin 11.3 g/dL (12.0-15.5) L Hematocrit 33.4 % (36.0-47.0) L Mean Corpuscular Volume 92 fL (79-100) Mean Corpuscular Hemoglobin 31 pg (25-35) Mean Corpuscular Hemoglobin Concent 34 g/dL (31-37) Red Cell Distribution Width 14.7 % (11.5-14.5) H Platelet Count 266 x10^3/uL (140-400) Neutrophils (%) (Auto) 63 % (31-73) Lymphocytes (%) (Auto) 26 % (24-48) Monocytes (%) (Auto) 8 % (0-9) Eosinophils (%) (Auto) 3 % (0-3) Basophils (%) (Auto) 0 % (0-3) Neutrophils # (Auto) 3.1 x10^3uL (1.8-7.7) Lymphocytes # (Auto) 1.3 x10^3/uL (1.0-4.8) Monocytes # (Auto) 0.4 x10^3/uL (0.0-1.1) Eosinophils # (Auto) 0.2 x10^3/uL (0.0-0.7) Basophils # (Auto) 0.0 x10^3/uL (0.0-0.2) Sodium Level 140 mmol/L (136-145) Potassium Level 4.2 mmol/L (3.5-5.1) Chloride Level 105 mmol/L (98-107) Carbon Dioxide Level 23 mmol/L (21-32) Anion Gap 12 (6-14) Blood Urea Nitrogen 15 mg/dL (7-20) Creatinine 1.0 mg/dL (0.6-1.0) Estimated GFR (Cockcroft-Gault) 52.7 BUN/Creatinine Ratio 15 (6-20) Glucose Level 154 mg/dL (70-99) H Calcium Level 8.7 mg/dL (8.5-10.1) Total Bilirubin 0.3 mg/dL (0.2-1.0) Aspartate Amino Transferase (AST) 26 U/L (15-37) Alanine Aminotransferase (ALT) 30 U/L (14-59) Alkaline Phosphatase 164 U/L (46-116) H Total Protein 7.3 g/dL (6.4-8.2) Albumin 3.6 g/dL (3.4-5.0) Albumin/Globulin Ratio 1.0 (1.0-1.7) Current Medications: Meds: Current Medications Acetaminophen (Tylenol) 650 mg PRN Q6HRS PRN PO PAIN / TEMP Last administered on 10/08/16 04:59; Start 09/13/16 at 13:00 Multi-Ingredient Ointment (Analgesic [place]) 1 beck PRN QID PRN TP MUSCLE PAIN Last administered on 10/07/16 12:14; Start 09/13/16 at 14:00 Al Hydroxide/Mg Hydroxide (Mylanta Plus Xs) 15 ml PRN AFTMEALHC PRN PO DYSPEPSIA; Start 09/13/16 at 14:00 Magnesium Hydroxide (Milk Of Magnesia) 2,400 mg PRN QHS PRN PO CONSTIPATION Last administered on 09/19/16 11:47; Start 09/13/16 at 14:00 Lorazepam (Ativan) 0.25 mg TID PO Last administered on 09/17/16 19:35; Start 09/13/16 at 21:00; Stop 09/17/16 at 22:21; Status DC Lorazepam (Ativan) 0.5 mg PRN TID PRN PO ANXIETY / AGITATION Last administered on 10/02/16 22:35; Start 09/13/16 at 16:00 Phenytoin Sodium (Dilantin) 100 mg BID PO Last administered on 10/08/16 07:52; Start 09/13/16 at 21:00 Quetiapine Fumarate (SEROquel) 25 mg BID PO Last administered on 09/16/16 09: 00; Start 09/13/16 at 21:00; Stop 09/16/16 at 18:14; Status DC Melatonin 3 mg HS PO Last administered on 10/07/16 19:17; Start 09/13/16 at 21: 00 Aspirin (Children'S Aspirin) 81 mg DAILY PO Last administered on 10/08/16 07:52 ; Start 09/14/16 at 09:00 Diclofenac Sodium (Voltaren) 1 beck BID TP Last administered on 10/08/16 07:54; Start 09/13/16 at 21:00 Metoprolol Succinate (Toprol Xl) 25 mg BID PO Last administered on 10/08/16 07: 51; Start 09/13/16 at 21:00 Glucosamine Sulfate (Glucosamine) 1,000 mg DAILY PO Last administered on 07:50; Start 09/14/16 at 09:00 Cetirizine HCl (ZyrTEC) 10 mg DAILY PO Last administered on 10/08/16 07:50; Start 09/14/16 at 09:00 Olanzapine (ZyPREXA ZYDIS) 2.5 mg PRN Q4HRS PRN PO PSYCHOSIS Last administered on 10/08/16 11:17; Start 09/14/16 at 14:15 Divalproex Sodium (Depakote Sprinkles) 250 mg HS PO Last administered on 19:32; Start 09/15/16 at 21:00; Stop 09/19/16 at 18:12; Status DC Divalproex Sodium (Depakote Sprinkles) 125 mg [id number] PO Last administered on 13:53; Start 09/15/16 at 09:00; Stop 09/19/16 at 18:12; Status DC Vitamin D (Vitamin D3) 50,000 unit WEEKLY PO Last administered on 10/07/16 08: 06; Start 09/16/16 at 11:30 Quetiapine Fumarate (SEROquel) 25 mg BIDACBL PO ; Start 09/17/16 at 07:30; Stop 09/17/16 at 07:30; Status DC Quetiapine Fumarate (SEROquel) 12.5 mg NOON PO Last administered on 09/22/16 12:17; Start 09/17/16 at 12:00; Stop 09/22/16 at 18:38; Status DC Sertraline HCl (Zoloft) 25 mg DAILY PO Last administered on 09/18/16 08:06; Start 09/17/16 at 09:00; Stop 09/19/16 at 08:59; Status DC Sertraline HCl (Zoloft) 50 mg DAILY PO Last administered on 10/01/16 08:10; Start 09/19/16 at 09:00; Stop 10/01/16 at 18:05; Status DC Quetiapine Fumarate (SEROquel) 25 mg [id number] PO Last administered on 09/17/16 16 :15; Start 09/17/16 at 09:00; Stop 09/17/16 at 22:21; Status DC Lorazepam (Ativan) 0.125 mg TID PO Last administered on 09/22/16 14:18; Start 09/18/16 at 09:00; Stop 09/22/16 at 18:38; Status DC Quetiapine Fumarate (SEROquel) 25 mg TID PO Last administered on 09/22/16 14: 18; Start 09/18/16 at 09:00; Stop 09/22/16 at 18:38; Status DC Lorazepam (Ativan) 0.125 mg BID PO Last administered on 09/24/16 19:19; Start 09/22/16 at 21:00; Stop 09/25/16 at 20:59; Status DC Quetiapine Fumarate (SEROquel) 25 mg QID PO Last administered on 10/08/16 17:01 ; Start 09/22/16 at 21:00 Lorazepam (Ativan) 0.125 mg DAILY PO Last administered on 09/28/16 08:08; Start 09/26/16 at 09:00; Stop 09/29/16 at 08:59; Status DC Buspirone HCl (Buspar) 5 mg BID PO Last administered on 09/25/16 19:29; Start 09/24/16 at 21:00; Stop 09/26/16 at 10:34; Status DC Buspirone HCl (Buspar) 5 mg QID PO Last administered on 10/08/16 17:01; Start 09/26/16 at 13:00 Divalproex Sodium (Depakote Sprinkles) 125 mg [id number] PO Last administered on 07:47; Start 09/27/16 at 09:00; Stop 09/29/16 at 11:04; Status DC Potassium Chloride (Klor-Con) 20 meq BID PO Last administered on 10/08/16 07:50 ; Start 09/28/16 at 21:00 Divalproex Sodium (Depakote Sprinkles) 125 mg TID PO Last administered on 07:54; Start 09/29/16 at 14:00; Stop 10/03/16 at 10:05; Status DC Cyanocobalamin (Vitamin B-12) 250 mcg DAILY PO Last administered on 10/08/16 07 :51; Start 09/30/16 at 12:30 Sertraline HCl (Zoloft) 75 mg DAILY PO Last administered on 10/08/16 07:49; Start 10/02/16 at 09:00 Artificial Tears (Artificial Tears) 1 drop TID OU Last administered on 07:54; Start 10/02/16 at 21:00 Divalproex Sodium (Depakote Sprinkles) 125 mg QID PO Last administered on 17:03; Start 10/03/16 at 13:00; Stop 10/07/16 at 18:09; Status DC Trazodone HCl (Desyrel) 25 mg PRN QHS PRN PO INSOMNIA Last administered on 10/06 20:13; Start 10/03/16 at 10:15 Divalproex Sodium (Depakote Sprinkles) 250 mg TID PO Last administered on 07:50; Start 10/07/16 at 21:00; Stop 10/08/16 at 11:31; Status DC Divalproex Sodium (Depakote Sprinkles) 125 mg [id number] PO Last administered on 10/08/16t 17:01; Start 10/08/16 at 12:00 Active Scripts Active Reported Seroquel (Quetiapine Fumarate) 25 Mg Tablet 25 Mg PO BID Lorazepam Intensol (Lorazepam) 2 Mg/1 Ml Oral.conc 0.25 Ml SL PRN TID PRN Voltaren (Diclofenac Sodium) 100 Gm Gel..gram. 1 Beck TP BID Lorazepam 0.5 Mg Tablet 0.25 Mg PO TID Melatin (Melatonin) 3 Mg Tablet 3 Mg PO QHS Metoprolol Succinate ( Xl ) (Metoprolol Succinate) 25 Mg Tab.er.24h 25 Mg PO BID Dilantin (Phenytoin Sodium Extended) 100 Mg Capsule 100 Mg PO BID Glucosamine Sulfate (Glucosamine Sulfate 2KCL) 1,000 Mg Tablet 1,000 Mg PO DAILY Aspirin 81 Mg Tab.chew 81 Mg PO DAILY Claritin (Loratadine) 10 Mg Tablet 10 Mg PO DAILY Diagnosis: Problems: (1) Dementia with behavioral disturbance (2) Anxiety disorder (3) Dementia in Alzheimer's disease with delusions (4) Dementia in Alzheimer's disease with depression (5) Dementia, vascular, with delusions (6) Dementia, vascular, with depression (7) Impulse control disorder NAKIA KO MD Oct 08, 2016 19:56
[2016-10-08] MEDS: MELATONIN 3 MG TABLET PO SCH (19:57)
--- NOTE | 2016-10-08 23:36 | PN ---
DATE: 10/07/2016 PSYCHIATRIC PROGRESS NOTE This is a late entry of 10/07/2016 covers elements not covered in my initial note. SUBJECTIVE: I met with the patient evening of 10/07/2016. She slept 8 hours previous evening. Valproic acid level is 35 on 10/06/2016. She was tearful, agitated with medications administered in the morning, somewhat delusional, received Zyprexa at 3:05 p.m. p.r.n. Complains of left shoulder pain, dryness of mouth, and she has received Tylenol for the shoulder pain. REVIEW OF SYSTEMS: No CV, , pulmonary, eye, ENT system symptoms on review. Reliability poor. MENTAL STATUS EXAM: Oriented to herself. Insight, judgment, recent and remote memory, attention, concentration, fund of knowledge poor, consistent with her diagnosis mentioned in my initial note. IMPRESSION: BUN is improved from 21 to 12, electrolytes were unremarkable. PLAN: Continue Depakote, but we will adjusted to 250 mg t.i.d. Labs level in 3 days. Maintain the rest of the psychotropics as before. Adjust as clinically indicated. MAN Leandro KO MD DR: LUCREICA/luz JOB#: [id number] / [id number]
[2016-10-09 05:55] VITALS: BP 149/67
[2016-10-09] MEDS: DIVALPROEX 125 MG CAP.SPRINK PO SCH ×5 (05:58→19:38)
[2016-10-09 06:20] LABS: BACTERIA,URINE FEW /HPF (0-FEW); BILIRUBIN,URINE NEG (NEG); CLARITY,URINE HAZY; COLOR,URINE YELLOW; GLUCOSE,URINE NEG (NEG); NITRITE,URINE NEG (NEG); RBC,URINE 0 /HPF (0-2); SQUAMOUS EPITHELIAL CELL,UR OCC /LPF; UROBILINOGEN,URINE 0.2 mg/dL (0.2 mg/dL)
[2016-10-09] MEDS: POLYVINYL ALCOHOL 1.4% OPHTH SOLUTION 15ML BOTTLE. OU SCH ×3 (08:29→19:39)
[2016-10-09] MEDS: CYANOCOBALAMIN (VITAMIN B-12) 250 MCG TABLET PO SCH (08:29)
[2016-10-09] MEDS: SERTRALINE 50 MG TABLET. PO SCH (08:29)
[2016-10-09] MEDS: PHENYTOIN SODIUM EXTENDED 100 MG CAPSULE PO SCH ×2 (08:29→19:36)
[2016-10-09] MEDS: QUEtiapine 25 MG TABLET. PO SCH ×4 (08:29→19:35)
[2016-10-09] MEDS: METOPROLOL SUCC 24HR ER 25 MG TAB.ER.24H. PO SCH ×2 (08:29→19:35)
[2016-10-09] MEDS: busPIRone 5 MG TABLET. PO SCH ×4 (08:29→19:34)
[2016-10-09] MEDS: POTASSIUM CHLORIDE 20 MEQ TABLET.ER. PO SCH ×2 (08:29→19:35)
[2016-10-09] MEDS: GLUCOSAMINE 500 MG CAPSULE PO SCH (08:29)
[2016-10-09] MEDS: ASPIRIN 81 MG TAB.CHEW PO SCH (08:29)
[2016-10-09] MEDS: DICLOFENAC SODIUM 1% TOPICAL GEL 100GM TUBE. TP SCH ×2 (08:30→19:39)
[2016-10-09] MEDS: CETIRIZINE HCL 10 MG TABLET PO SCH (08:30)
[2016-10-09 16:23] VITALS: BP 153/75
[2016-10-09] MEDS: MELATONIN 3 MG TABLET PO SCH (19:35)
--- NOTE | 2016-10-09 19:44 | PDOC ---
Exam Dane Demential Exam: Dane Note: Please also refer to the separate dictated note~for this date of service dictated separately.~Patient seen individually. Discussed the patient with Nursing staff reviewed the chart.~Reviewed interim history and current functioning. Reviewed vital signs,~Labs/ Radiology~and current medications noted below. Continue current treatment with the changes noted in the dictated addendum note Assessment: Vital Signs: Vital Signs Date Time Temp Pulse Resp B/P (MAP) Pulse Ox O2 Delivery O2 Flow Rate FiO2 10/09/16 19:35 77 153/75 10/09/16 16:23 98.5 20 98 10/09/16 05:55 Room Air I&O Intake and Output 10/09/16 07:00 Intake Total 950 ml Balance 950 ml Intake Oral 950 ml # Voids 2 # Bowel Movements 1 Labs: Laboratory Tests Test 10/09/16 05:45 Urine Collection Type Unknown Urine Color Yellow Urine Clarity Hazy Urine pH 5.5 Urine Specific [place] 1.010 Urine Protein Neg (NEG-TRACE) Urine Glucose (UA) Neg mg/dL (NEG) Urine Ketones (Stick) Neg mg/dL (NEG) Urine Blood Neg (NEG) Urine Nitrite Neg (NEG) Urine Bilirubin Neg (NEG) Urine Urobilinogen Dipstick 0.2 mg/dL (0.2 mg/dL) Urine Leukocyte Esterase Mod (NEG) Urine RBC 0 /HPF (0-2) Urine WBC 5-10 /HPF (0-4) Urine Squamous Epithelial Cells Occ /LPF Urine Bacteria Few /HPF (0-FEW) Current Medications: Meds: Current Medications Acetaminophen (Tylenol) 650 mg PRN Q6HRS PRN PO PAIN / TEMP Last administered on 10/08/16 04:59; Start 09/13/16 at 13:00 Multi-Ingredient Ointment (Analgesic [place]) 1 beck PRN QID PRN TP MUSCLE PAIN Last administered on 10/07/16 12:14; Start 09/13/16 at 14:00 Al Hydroxide/Mg Hydroxide (Mylanta Plus Xs) 15 ml PRN AFTMEALHC PRN PO DYSPEPSIA; Start 09/13/16 at 14:00 Magnesium Hydroxide (Milk Of Magnesia) 2,400 mg PRN QHS PRN PO CONSTIPATION Last administered on 09/19/16 11:47; Start 09/13/16 at 14:00 Lorazepam (Ativan) 0.25 mg TID PO Last administered on 09/17/16 19:35; Start 09/13/16 at 21:00; Stop 09/17/16 at 22:21; Status DC Lorazepam (Ativan) 0.5 mg PRN TID PRN PO ANXIETY / AGITATION Last administered on 10/02/16 22:35; Start 09/13/16 at 16:00 Phenytoin Sodium (Dilantin) 100 mg BID PO Last administered on 10/09/16 19:36; Start 09/13/16 at 21:00 Quetiapine Fumarate (SEROquel) 25 mg BID PO Last administered on 09/16/16 09: 00; Start 09/13/16 at 21:00; Stop 09/16/16 at 18:14; Status DC Melatonin 3 mg HS PO Last administered on 10/09/16 19:35; Start 09/13/16 at 21: 00 Aspirin (Children'S Aspirin) 81 mg DAILY PO Last administered on 10/09/16 08:29 ; Start 09/14/16 at 09:00 Diclofenac Sodium (Voltaren) 1 beck BID TP Last administered on 10/09/16 19:39; Start 09/13/16 at 21:00 Metoprolol Succinate (Toprol Xl) 25 mg BID PO Last administered on 10/09/16 19: 35; Start 09/13/16 at 21:00 Glucosamine Sulfate (Glucosamine) 1,000 mg DAILY PO Last administered on 08:29; Start 09/14/16 at 09:00 Cetirizine HCl (ZyrTEC) 10 mg DAILY PO Last administered on 10/09/16 08:30; Start 09/14/16 at 09:00 Olanzapine (ZyPREXA ZYDIS) 2.5 mg PRN Q4HRS PRN PO PSYCHOSIS Last administered on 10/08/16 11:17; Start 09/14/16 at 14:15 Divalproex Sodium (Depakote Sprinkles) 250 mg HS PO Last administered on 19:32; Start 09/15/16 at 21:00; Stop 09/19/16 at 18:12; Status DC Divalproex Sodium (Depakote Sprinkles) 125 mg [id number] PO Last administered on 13:53; Start 09/15/16 at 09:00; Stop 09/19/16 at 18:12; Status DC Vitamin D (Vitamin D3) 50,000 unit WEEKLY PO Last administered on 10/07/16 08: 06; Start 09/16/16 at 11:30 Quetiapine Fumarate (SEROquel) 25 mg BIDACBL PO ; Start 09/17/16 at 07:30; Stop 09/17/16 at 07:30; Status DC Quetiapine Fumarate (SEROquel) 12.5 mg NOON PO Last administered on 09/22/16 12:17; Start 09/17/16 at 12:00; Stop 09/22/16 at 18:38; Status DC Sertraline HCl (Zoloft) 25 mg DAILY PO Last administered on 09/18/16 08:06; Start 09/17/16 at 09:00; Stop 09/19/16 at 08:59; Status DC Sertraline HCl (Zoloft) 50 mg DAILY PO Last administered on 10/01/16 08:10; Start 09/19/16 at 09:00; Stop 10/01/16 at 18:05; Status DC Quetiapine Fumarate (SEROquel) 25 mg [id number] PO Last administered on 09/17/16 16 :15; Start 09/17/16 at 09:00; Stop 09/17/16 at 22:21; Status DC Lorazepam (Ativan) 0.125 mg TID PO Last administered on 09/22/16 14:18; Start 09/18/16 at 09:00; Stop 09/22/16 at 18:38; Status DC Quetiapine Fumarate (SEROquel) 25 mg TID PO Last administered on 09/22/16 14: 18; Start 09/18/16 at 09:00; Stop 09/22/16 at 18:38; Status DC Lorazepam (Ativan) 0.125 mg BID PO Last administered on 09/24/16 19:19; Start 09/22/16 at 21:00; Stop 09/25/16 at 20:59; Status DC Quetiapine Fumarate (SEROquel) 25 mg QID PO Last administered on 10/09/16 19:35 ; Start 09/22/16 at 21:00 Lorazepam (Ativan) 0.125 mg DAILY PO Last administered on 09/28/16 08:08; Start 09/26/16 at 09:00; Stop 09/29/16 at 08:59; Status DC Buspirone HCl (Buspar) 5 mg BID PO Last administered on 09/25/16 19:29; Start 09/24/16 at 21:00; Stop 09/26/16 at 10:34; Status DC Buspirone HCl (Buspar) 5 mg QID PO Last administered on 10/09/16 19:34; Start 09/26/16 at 13:00 Divalproex Sodium (Depakote Sprinkles) 125 mg [id number] PO Last administered on 07:47; Start 09/27/16 at 09:00; Stop 09/29/16 at 11:04; Status DC Potassium Chloride (Klor-Con) 20 meq BID PO Last administered on 10/09/16 19:35 ; Start 09/28/16 at 21:00 Divalproex Sodium (Depakote Sprinkles) 125 mg TID PO Last administered on 07:54; Start 09/29/16 at 14:00; Stop 10/03/16 at 10:05; Status DC Cyanocobalamin (Vitamin B-12) 250 mcg DAILY PO Last administered on 10/09/16 08 :29; Start 09/30/16 at 12:30 Sertraline HCl (Zoloft) 75 mg DAILY PO Last administered on 10/09/16 08:29; Start 10/02/16 at 09:00 Artificial Tears (Artificial Tears) 1 drop TID OU Last administered on 19:39; Start 10/02/16 at 21:00 Divalproex Sodium (Depakote Sprinkles) 125 mg QID PO Last administered on 17:03; Start 10/03/16 at 13:00; Stop 10/07/16 at 18:09; Status DC Trazodone HCl (Desyrel) 25 mg PRN QHS PRN PO INSOMNIA Last administered on 10/06 20:13; Start 10/03/16 at 10:15 Divalproex Sodium (Depakote Sprinkles) 250 mg TID PO Last administered on 07:50; Start 10/07/16 at 21:00; Stop 10/08/16 at 11:31; Status DC Divalproex Sodium (Depakote Sprinkles) 125 mg [id number] PO Last administered on 10/09/16 19:38; Start 10/08/16 at 12:00 Active Scripts Active Reported Seroquel (Quetiapine Fumarate) 25 Mg Tablet 25 Mg PO BID Lorazepam Intensol (Lorazepam) 2 Mg/1 Ml Oral.conc 0.25 Ml SL PRN TID PRN Voltaren (Diclofenac Sodium) 100 Gm Gel..gram. 1 Beck TP BID Lorazepam 0.5 Mg Tablet 0.25 Mg PO TID Melatin (Melatonin) 3 Mg Tablet 3 Mg PO QHS Metoprolol Succinate ( Xl ) (Metoprolol Succinate) 25 Mg Tab.er.24h 25 Mg PO BID Dilantin (Phenytoin Sodium Extended) 100 Mg Capsule 100 Mg PO BID Glucosamine Sulfate (Glucosamine Sulfate 2KCL) 1,000 Mg Tablet 1,000 Mg PO DAILY Aspirin 81 Mg Tab.chew 81 Mg PO DAILY Claritin (Loratadine) 10 Mg Tablet 10 Mg PO DAILY Diagnosis: Problems: (1) Dementia with behavioral disturbance (2) Anxiety disorder (3) Dementia in Alzheimer's disease with delusions (4) Dementia in Alzheimer's disease with depression (5) Dementia, vascular, with delusions (6) Dementia, vascular, with depression (7) Impulse control disorder NAKIA KO MD Oct 09, 2016 19:44
[2016-10-10 05:47] VITALS: BP 149/79
[2016-10-10 06:27] LABS: BASO % 0 % (0-3); EOS # 0.2 x10^3/uL (0.0-0.7); EOS % 5 % (0-3); HEMATOCRIT 33.3 % (36.0-47.0); HEMOGLOBIN 11.3 g/dL (12.0-15.5); LYMPH % 26 % (24-48); MEAN CORPUSCULAR HEMOGLOBIN 31 pg (25-35); MEAN CORPUSCULAR HGB CONC 34 g/dL (31-37); MEAN CORPUSCULAR VOLUME 92 fL (79-100); MONO # 0.4 x10^3/uL (0.0-1.1); MONO % 9 % (0-9); NEUT # 2.4 x10^3uL (1.8-7.7); NEUT % 59 % (31-73); PLATELET COUNT 240 x10^3/uL (140-400); RED BLOOD COUNT 3.63 x10^6/uL (3.50-5.40); RED CELL DISTRIBUTION WIDTH 14.8 % (11.5-14.5)
[2016-10-10 06:40] LABS: ALBUMIN 3.3 g/dL (3.4-5.0); ALK PHOS 148 U/L (46-116); ALT (SGPT) 24 U/L (14-59); ANION GAP 8 (6-14); AST (SGOT) 18 U/L (15-37); BLOOD UREA NITROGEN 13 mg/dL (7-20); BUN/CREATININE RATIO 14 (6-20); CALCIUM 8.6 mg/dL (8.5-10.1); CARBON DIOXIDE 28 mmol/L (21-32); CHLORIDE 109 mmol/L (98-107); CREATININE 0.9 mg/dL (0.6-1.0); GFR 59.5; GLUCOSE 84 mg/dL (70-99); POTASSIUM 4.3 mmol/L (3.5-5.1); SODIUM 145 mmol/L (136-145); TOTAL BILIRUBIN 0.3 mg/dL (0.2-1.0); TOTAL PROTEIN 6.6 g/dL (6.4-8.2)
[2016-10-10 06:47] LABS: VAL ACID 30 mcg/mL (50-100)
--- NOTE | 2016-10-10 06:51 | PN ---
DATE: 10/08/2016 PSYCHIATRIC PROGRESS NOTE This late entry of 10/08/2016 covers elements not covered in my initial note of 10/08/2016. I met with the patient on the evening of 10/08/2016. The patient has been somewhat more emotionally labile, having difficulty getting her words out. Per nursing report, she was "dramatic" on the morning of 10/08/2016. Hemoglobin 11.3; glucose elevated; alkaline phosphatase is increased, no change from before; WBC unremarkable. REVIEW OF SYSTEMS: Still complains of some dry mouth. No CV, , pulmonary, eye, ENT system symptoms on review. Reliability is poor. MENTAL STATUS EXAMINATION: Oriented to herself. Insight, judgment, recent and remote memory, attention, concentration, fund of knowledge poor, consistent with her diagnosis mentioned in my initial note. PLAN: Continue Depakote 125 mg 4 times a day. This was reduced from 250 t.i.d. because of unsteady gait. We will follow labs level and make further adjustments as clinically indicated. Rest of psychotropics are unchanged as compared to earlier. MAN Leandro KO MD DR: LUCRECIA/luz JOB#: [id number] / [id number]
[2016-10-10] MEDS: busPIRone 5 MG TABLET. PO SCH ×4 (08:33→20:02)
[2016-10-10] MEDS: PHENYTOIN SODIUM EXTENDED 100 MG CAPSULE PO SCH ×2 (08:33→20:03)
[2016-10-10] MEDS: POTASSIUM CHLORIDE 20 MEQ TABLET.ER. PO SCH ×2 (08:33→20:04)
[2016-10-10] MEDS: ASPIRIN 81 MG TAB.CHEW PO SCH (08:33)
[2016-10-10] MEDS: QUEtiapine 25 MG TABLET. PO SCH ×4 (08:34→20:03)
[2016-10-10] MEDS: SERTRALINE 50 MG TABLET. PO SCH (08:35)
[2016-10-10] MEDS: CETIRIZINE HCL 10 MG TABLET PO SCH (08:35)
[2016-10-10] MEDS: METOPROLOL SUCC 24HR ER 25 MG TAB.ER.24H. PO SCH ×2 (08:35→20:03)
[2016-10-10] MEDS: DIVALPROEX 125 MG CAP.SPRINK PO SCH ×4 (08:56→20:03)
[2016-10-10] MEDS: CYANOCOBALAMIN (VITAMIN B-12) 250 MCG TABLET PO SCH (09:00)
[2016-10-10] MEDS: GLUCOSAMINE 500 MG CAPSULE PO SCH (09:00)
[2016-10-10] MEDS: DICLOFENAC SODIUM 1% TOPICAL GEL 100GM TUBE. TP SCH ×2 (09:00→20:17)
[2016-10-10] MEDS: POLYVINYL ALCOHOL 1.4% OPHTH SOLUTION 15ML BOTTLE. OU SCH ×3 (09:00→20:08)
[2016-10-10 15:54] VITALS: BP 125/55
[2016-10-10] MEDS ORDERED: ACETAMINOPHEN 325 MG TABLET PO PRN (17:38)
--- NOTE | 2016-10-10 19:50 | PDOC ---
Exam Dane Demential Exam: Dane Note: Please also refer to the separate dictated note~for this date of service dictated separately.~Patient seen individually. Discussed the patient with Nursing staff reviewed the chart.~Reviewed interim history and current functioning. Reviewed vital signs,~Labs/ Radiology~and current medications noted below. Continue current treatment with the changes noted in the dictated addendum note Assessment: Vital Signs: Vital Signs Date Time Temp Pulse Resp B/P (MAP) Pulse Ox O2 Delivery O2 Flow Rate FiO2 10/10/16 15:54 99.0 61 18 125/55 (78) 96 10/09/16 05:55 Room Air I&O Intake and Output 10/10/16 07:00 Intake Total 940 ml Balance 940 ml Intake Oral 940 ml # Voids 1 Labs: Laboratory Tests Test 10/10/16 06:12 White Blood Count 4.0 x10^3/uL (4.0-11.0) Red Blood Count 3.63 x10^6/uL (3.50-5.40) Hemoglobin 11.3 g/dL (12.0-15.5) L Hematocrit 33.3 % (36.0-47.0) L Mean Corpuscular Volume 92 fL (79-100) Mean Corpuscular Hemoglobin 31 pg (25-35) Mean Corpuscular Hemoglobin Concent 34 g/dL (31-37) Red Cell Distribution Width 14.8 % (11.5-14.5) H Platelet Count 240 x10^3/uL (140-400) Neutrophils (%) (Auto) 59 % (31-73) Lymphocytes (%) (Auto) 26 % (24-48) Monocytes (%) (Auto) 9 % (0-9) Eosinophils (%) (Auto) 5 % (0-3) H Basophils (%) (Auto) 0 % (0-3) Neutrophils # (Auto) 2.4 x10^3uL (1.8-7.7) Lymphocytes # (Auto) 1.0 x10^3/uL (1.0-4.8) Monocytes # (Auto) 0.4 x10^3/uL (0.0-1.1) Eosinophils # (Auto) 0.2 x10^3/uL (0.0-0.7) Basophils # (Auto) 0.0 x10^3/uL (0.0-0.2) Sodium Level 145 mmol/L (136-145) Potassium Level 4.3 mmol/L (3.5-5.1) Chloride Level 109 mmol/L (98-107) H Carbon Dioxide Level 28 mmol/L (21-32) Anion Gap 8 (6-14) Blood Urea Nitrogen 13 mg/dL (7-20) Creatinine 0.9 mg/dL (0.6-1.0) Estimated GFR (Cockcroft-Gault) 59.5 BUN/Creatinine Ratio 14 (6-20) Glucose Level 84 mg/dL (70-99) Calcium Level 8.6 mg/dL (8.5-10.1) Total Bilirubin 0.3 mg/dL (0.2-1.0) Aspartate Amino Transferase (AST) 18 U/L (15-37) Alanine Aminotransferase (ALT) 24 U/L (14-59) Alkaline Phosphatase 148 U/L (46-116) H Total Protein 6.6 g/dL (6.4-8.2) Albumin 3.3 g/dL (3.4-5.0) L Albumin/Globulin Ratio 1.0 (1.0-1.7) Valproic Acid Level 30 mcg/mL (50-100) L Valproic Acid Last Dose Date 10/09/16 Valproic Acid Last Dose Time 2100 Current Medications: Meds: Current Medications Acetaminophen (Tylenol) 650 mg PRN Q6HRS PRN PO PAIN / TEMP Last administered on 10/08/16 04:59; Start 09/13/16 at 13:00; Stop 10/10/16 at 17:38; Status DC Multi-Ingredient Ointment (Analgesic [place]) 1 beck PRN QID PRN TP MUSCLE PAIN Last administered on 10/07/16 12:14; Start 09/13/16 at 14:00 Al Hydroxide/Mg Hydroxide (Mylanta Plus Xs) 15 ml PRN AFTMEALHC PRN PO DYSPEPSIA; Start 09/13/16 at 14:00 Magnesium Hydroxide (Milk Of Magnesia) 2,400 mg PRN QHS PRN PO CONSTIPATION Last administered on 09/19/16 11:47; Start 09/13/16 at 14:00 Lorazepam (Ativan) 0.25 mg TID PO Last administered on 09/17/16 19:35; Start 09/13/16 at 21:00; Stop 09/17/16 at 22:21; Status DC Lorazepam (Ativan) 0.5 mg PRN TID PRN PO ANXIETY / AGITATION Last administered on 10/02/16 22:35; Start 09/13/16 at 16:00 Phenytoin Sodium (Dilantin) 100 mg BID PO Last administered on 10/10/16 08:33; Start 09/13/16 at 21:00 Quetiapine Fumarate (SEROquel) 25 mg BID PO Last administered on 09/16/16 09: 00; Start 09/13/16 at 21:00; Stop 09/16/16 at 18:14; Status DC Melatonin 3 mg HS PO Last administered on 10/09/16 19:35; Start 09/13/16 at 21: 00 Aspirin (Children'S Aspirin) 81 mg DAILY PO Last administered on 10/10/16 08:33 ; Start 09/14/16 at 09:00 Diclofenac Sodium (Voltaren) 1 beck BID TP Last administered on 10/09/16 19:39; Start 09/13/16 at 21:00 Metoprolol Succinate (Toprol Xl) 25 mg BID PO Last administered on 10/10/16 08: 35; Start 09/13/16 at 21:00 Glucosamine Sulfate (Glucosamine) 1,000 mg DAILY PO Last administered on 08:29; Start 09/14/16 at 09:00 Cetirizine HCl (ZyrTEC) 10 mg DAILY PO Last administered on 10/10/16 08:35; Start 09/14/16 at 09:00 Olanzapine (ZyPREXA ZYDIS) 2.5 mg PRN Q4HRS PRN PO PSYCHOSIS Last administered on 10/08/16 11:17; Start 09/14/16 at 14:15 Divalproex Sodium (Depakote Sprinkles) 250 mg HS PO Last administered on 19:32; Start 09/15/16 at 21:00; Stop 09/19/16 at 18:12; Status DC Divalproex Sodium (Depakote Sprinkles) 125 mg [id number] PO Last administered on 13:53; Start 09/15/16 at 09:00; Stop 09/19/16 at 18:12; Status DC Vitamin D (Vitamin D3) 50,000 unit WEEKLY PO Last administered on 10/07/16 08: 06; Start 09/16/16 at 11:30 Quetiapine Fumarate (SEROquel) 25 mg BIDACBL PO ; Start 09/17/16 at 07:30; Stop 09/17/16 at 07:30; Status DC Quetiapine Fumarate (SEROquel) 12.5 mg NOON PO Last administered on 09/22/16 12:17; Start 09/17/16 at 12:00; Stop 09/22/16 at 18:38; Status DC Sertraline HCl (Zoloft) 25 mg DAILY PO Last administered on 09/18/16 08:06; Start 09/17/16 at 09:00; Stop 09/19/16 at 08:59; Status DC Sertraline HCl (Zoloft) 50 mg DAILY PO Last administered on 10/01/16 08:10; Start 09/19/16 at 09:00; Stop 10/01/16 at 18:05; Status DC Quetiapine Fumarate (SEROquel) 25 mg [id number] PO Last administered on 09/17/16 16 :15; Start 09/17/16 at 09:00; Stop 09/17/16 at 22:21; Status DC Lorazepam (Ativan) 0.125 mg TID PO Last administered on 09/22/16 14:18; Start 09/18/16 at 09:00; Stop 09/22/16 at 18:38; Status DC Quetiapine Fumarate (SEROquel) 25 mg TID PO Last administered on 09/22/16 14: 18; Start 09/18/16 at 09:00; Stop 09/22/16 at 18:38; Status DC Lorazepam (Ativan) 0.125 mg BID PO Last administered on 09/24/16 19:19; Start 09/22/16 at 21:00; Stop 09/25/16 at 20:59; Status DC Quetiapine Fumarate (SEROquel) 25 mg QID PO Last administered on 10/10/16 17:06 ; Start 09/22/16 at 21:00 Lorazepam (Ativan) 0.125 mg DAILY PO Last administered on 09/28/16 08:08; Start 09/26/16 at 09:00; Stop 09/29/16 at 08:59; Status DC Buspirone HCl (Buspar) 5 mg BID PO Last administered on 09/25/16 19:29; Start 09/24/16 at 21:00; Stop 09/26/16 at 10:34; Status DC Buspirone HCl (Buspar) 5 mg QID PO Last administered on 10/10/16 17:06; Start 09/26/16 at 13:00 Divalproex Sodium (Depakote Sprinkles) 125 mg [id number] PO Last administered on 07:47; Start 09/27/16 at 09:00; Stop 09/29/16 at 11:04; Status DC Potassium Chloride (Klor-Con) 20 meq BID PO Last administered on 10/10/16 08:33 ; Start 09/28/16 at 21:00 Divalproex Sodium (Depakote Sprinkles) 125 mg TID PO Last administered on 07:54; Start 09/29/16 at 14:00; Stop 10/03/16 at 10:05; Status DC Cyanocobalamin (Vitamin B-12) 250 mcg DAILY PO Last administered on 10/09/16 08 :29; Start 09/30/16 at 12:30 Sertraline HCl (Zoloft) 75 mg DAILY PO Last administered on 10/10/16 08:35; Start 10/02/16 at 09:00 Artificial Tears (Artificial Tears) 1 drop TID OU Last administered on 12:30; Start 10/02/16 at 21:00 Divalproex Sodium (Depakote Sprinkles) 125 mg QID PO Last administered on 17:03; Start 10/03/16 at 13:00; Stop 10/07/16 at 18:09; Status DC Trazodone HCl (Desyrel) 25 mg PRN QHS PRN PO INSOMNIA Last administered on 10/06 20:13; Start 10/03/16 at 10:15 Divalproex Sodium (Depakote Sprinkles) 250 mg TID PO Last administered on 07:50; Start 10/07/16 at 21:00; Stop 10/08/16 at 11:31; Status DC Divalproex Sodium (Depakote Sprinkles) 125 mg [id number] PO Last administered on 10/09/16 19:38; Start 10/08/16 at 12:00; Stop 10/10/16 at 02:42; Status DC Divalproex Sodium (Depakote Sprinkles) 125 mg [id number] PO Last administered on 17:06; Start 10/10/16 at 09:00 Acetaminophen (Tylenol) 650 mg PRN Q6HRS PRN PO PAIN / TEMP; Start 10/10/16 at 17:38 Active Scripts Active Reported Seroquel (Quetiapine Fumarate) 25 Mg Tablet 25 Mg PO BID Lorazepam Intensol (Lorazepam) 2 Mg/1 Ml Oral.conc 0.25 Ml SL PRN TID PRN Voltaren (Diclofenac Sodium) 100 Gm Gel..gram. 1 Beck TP BID Lorazepam 0.5 Mg Tablet 0.25 Mg PO TID Melatin (Melatonin) 3 Mg Tablet 3 Mg PO QHS Metoprolol Succinate ( Xl ) (Metoprolol Succinate) 25 Mg Tab.er.24h 25 Mg PO BID Dilantin (Phenytoin Sodium Extended) 100 Mg Capsule 100 Mg PO BID Glucosamine Sulfate (Glucosamine Sulfate 2KCL) 1,000 Mg Tablet 1,000 Mg PO DAILY Aspirin 81 Mg Tab.chew 81 Mg PO DAILY Claritin (Loratadine) 10 Mg Tablet 10 Mg PO DAILY Diagnosis: Problems: (1) Dementia with behavioral disturbance (2) Anxiety disorder (3) Dementia in Alzheimer's disease with delusions (4) Dementia in Alzheimer's disease with depression (5) Dementia, vascular, with delusions (6) Dementia, vascular, with depression (7) Impulse control disorder NAKIA KO MD Oct 10, 2016 19:50
[2016-10-10] MEDS: MELATONIN 3 MG TABLET PO SCH (20:03)
[2016-10-10] MEDS: METHYL SALICYLATE/MENTHOL TOPICAL OINTMENT 29GM TUBE. TP PRN (20:08)
--- NOTE | 2016-10-10 22:17 | PN ---
DATE: 10/09/2016 This is a late entry for 10/09/2016 and covers the elements not covered in my initial note of 10/09/2016. SUBJECTIVE: I met with the patient on the evening of 10/09/2016. UA has reflexed to culture and sensitivity and we will await this. She remains confused; otherwise, had a good day; per nursing staff has been pleasant. REVIEW OF SYSTEMS: No CV, , pulmonary, eye, ENT system symptoms on review. Reliability poor. MENTAL STATUS EXAM: Oriented to herself. Insight, judgment, recent and remote memory, attention, concentration, fund of knowledge poor, consistent with her diagnosis mentioned in my initial note. PLAN: Continue current psychotropics. Adjust as clinically indicated. Reviewed and drug contractions, risk/benefit ratio favors no change. Await NATHANIEL, C and S. Defer to Dr. Oneil to treat if necessary. MAN Leandro KO MD DR: LUCRECIA/luz JOB#: [id number] / [id number]
[2016-10-11] MEDS ORDERED: ACET325T9 PO (04:39)
[2016-10-11] MEDS ORDERED: CETI10TA16 PO (04:46)
[2016-10-11] MEDS ORDERED: CHOL500016 PO (04:48)
[2016-10-11] MEDS ORDERED: CYAN10005 PO (04:49)
[2016-10-11] MEDS ORDERED: DIVA125C PO (04:51)
[2016-10-11] MEDS ORDERED: MAGN2400 PO (04:52)
[2016-10-11] MEDS ORDERED: MAG355OR12 PO (04:53)
[2016-10-11] MEDS ORDERED: METH29OI TP (04:55)
[2016-10-11] MEDS ORDERED: OLAN5TAB7 PO (04:56)
[2016-10-11] MEDS ORDERED: POTA20TA4 PO (04:58)
[2016-10-11] MEDS ORDERED: DEXT15DR5 OU (04:58)
[2016-10-11] MEDS ORDERED: TRAZ50TA15 PO (05:01)
[2016-10-11] MEDS ORDERED: SERT50TA PO (05:01)
[2016-10-11] MEDS ORDERED: BUSP5TAB PO (05:03)
[2016-10-11 06:01] VITALS: BP 143/66
[2016-10-11] MEDS: POLYVINYL ALCOHOL 1.4% OPHTH SOLUTION 15ML BOTTLE. OU SCH (08:36)
[2016-10-11] MEDS: busPIRone 5 MG TABLET. PO SCH (08:37)
[2016-10-11] MEDS: QUEtiapine 25 MG TABLET. PO SCH (08:37)
[2016-10-11] MEDS: CYANOCOBALAMIN (VITAMIN B-12) 250 MCG TABLET PO SCH (08:37)
[2016-10-11] MEDS: SERTRALINE 50 MG TABLET. PO SCH (08:37)
[2016-10-11] MEDS: CETIRIZINE HCL 10 MG TABLET PO SCH (08:37)
[2016-10-11] MEDS: DIVALPROEX 125 MG CAP.SPRINK PO SCH (08:37)
[2016-10-11] MEDS: ASPIRIN 81 MG TAB.CHEW PO SCH (08:37)
[2016-10-11] MEDS: PHENYTOIN SODIUM EXTENDED 100 MG CAPSULE PO SCH (08:37)
[2016-10-11 08:38] VITALS: BP 143/66
[2016-10-11] MEDS: METOPROLOL SUCC 24HR ER 25 MG TAB.ER.24H. PO SCH (08:38)
[2016-10-11] MEDS: GLUCOSAMINE 500 MG CAPSULE PO SCH (08:38)
[2016-10-11] MEDS: POTASSIUM CHLORIDE 20 MEQ TABLET.ER. PO SCH (08:38)
[2016-10-11] MEDS: DICLOFENAC SODIUM 1% TOPICAL GEL 100GM TUBE. TP SCH (08:39)
--- NOTE | 2016-10-11 18:22 | PDOC ---
Exam Dane Demential Exam: Dane Note: Please also refer to the separate dictated note~for this date of service dictated separately.~Patient seen individually. Discussed the patient with Nursing staff reviewed the chart.~Reviewed interim history and current functioning. Reviewed vital signs,~Labs/ Radiology~and current medications noted below. Continue current treatment with the changes noted in the dictated addendum note Assessment: Vital Signs: Vital Signs Date Time Temp Pulse Resp B/P (MAP) Pulse Ox O2 Delivery O2 Flow Rate FiO2 10/11/16 08:38 74 143/66 10/11/16 06:01 98.2 16 98 10/09/16 05:55 Room Air I&O Intake and Output 10/11/16 07:00 Intake Total 900 ml Balance 900 ml Intake Oral 900 ml # Bowel Movements 1 Current Medications: Meds: Current Medications Acetaminophen (Tylenol) 650 mg PRN Q6HRS PRN PO PAIN / TEMP Last administered on 10/08/16 04:59; Start 09/13/16 at 13:00; Stop 10/10/16 at 17:38; Status DC Multi-Ingredient Ointment (Analgesic [place]) 1 beck PRN QID PRN TP MUSCLE PAIN Last administered on 10/10/16 20:08; Start 09/13/16 at 14:00; Stop 10/11/16 at 10: 50; Status DC Al Hydroxide/Mg Hydroxide (Mylanta Plus Xs) 15 ml PRN AFTMEALHC PRN PO DYSPEPSIA; Start 09/13/16 at 14:00; Stop 10/11/16 at 10:50; Status DC Magnesium Hydroxide (Milk Of Magnesia) 2,400 mg PRN QHS PRN PO CONSTIPATION Last administered on 09/19/16 11:47; Start 09/13/16 at 14:00; Stop 10/11/16 at 10 :50; Status DC Lorazepam (Ativan) 0.25 mg TID PO Last administered on 09/17/16 19:35; Start 09/13/16 at 21:00; Stop 09/17/16 at 22:21; Status DC Lorazepam (Ativan) 0.5 mg PRN TID PRN PO ANXIETY / AGITATION Last administered on 10/02/16 22:35; Start 09/13/16 at 16:00; Stop 10/11/16 at 10:50; Status DC Phenytoin Sodium (Dilantin) 100 mg BID PO Last administered on 10/11/16 08:37; Start 09/13/16 at 21:00; Stop 10/11/16 at 10:50; Status DC Quetiapine Fumarate (SEROquel) 25 mg BID PO Last administered on 09/16/16 09: 00; Start 09/13/16 at 21:00; Stop 09/16/16 at 18:14; Status DC Melatonin 3 mg HS PO Last administered on 10/10/16 20:03; Start 09/13/16 at 21: 00; Stop 10/11/16 at 10:50; Status DC Aspirin (Children'S Aspirin) 81 mg DAILY PO Last administered on 10/11/16 08:37 ; Start 09/14/16 at 09:00; Stop 10/11/16 at 10:50; Status DC Diclofenac Sodium (Voltaren) 1 beck BID TP Last administered on 10/11/16 08:39; Start 09/13/16 at 21:00; Stop 10/11/16 at 10:50; Status DC Metoprolol Succinate (Toprol Xl) 25 mg BID PO Last administered on 10/11/16 08: 38; Start 09/13/16 at 21:00; Stop 10/11/16 at 10:50; Status DC Glucosamine Sulfate (Glucosamine) 1,000 mg DAILY PO Last administered on 08:38; Start 09/14/16 at 09:00; Stop 10/11/16 at 10:50; Status DC Cetirizine HCl (ZyrTEC) 10 mg DAILY PO Last administered on 10/11/16 08:37; Start 09/14/16 at 09:00; Stop 10/11/16 at 10:50; Status DC Olanzapine (ZyPREXA ZYDIS) 2.5 mg PRN Q4HRS PRN PO PSYCHOSIS Last administered on 10/08/16 11:17; Start 09/14/16 at 14:15; Stop 10/11/16 at 10:50; Status DC Divalproex Sodium (Depakote Sprinkles) 250 mg HS PO Last administered on 19:32; Start 09/15/16 at 21:00; Stop 09/19/16 at 18:12; Status DC Divalproex Sodium (Depakote Sprinkles) 125 mg [id number] PO Last administered on 13:53; Start 09/15/16 at 09:00; Stop 09/19/16 at 18:12; Status DC Vitamin D (Vitamin D3) 50,000 unit WEEKLY PO Last administered on 10/07/16 08: 06; Start 09/16/16 at 11:30; Stop 10/11/16 at 10:50; Status DC Quetiapine Fumarate (SEROquel) 25 mg BIDACBL PO ; Start 09/17/16 at 07:30; Stop 09/17/16 at 07:30; Status DC Quetiapine Fumarate (SEROquel) 12.5 mg NOON PO Last administered on 09/22/16 12:17; Start 09/17/16 at 12:00; Stop 09/22/16 at 18:38; Status DC Sertraline HCl (Zoloft) 25 mg DAILY PO Last administered on 09/18/16 08:06; Start 09/17/16 at 09:00; Stop 09/19/16 at 08:59; Status DC Sertraline HCl (Zoloft) 50 mg DAILY PO Last administered on 10/01/16 08:10; Start 09/19/16 at 09:00; Stop 10/01/16 at 18:05; Status DC Quetiapine Fumarate (SEROquel) 25 mg [id number] PO Last administered on 09/17/16 16 :15; Start 09/17/16 at 09:00; Stop 09/17/16 at 22:21; Status DC Lorazepam (Ativan) 0.125 mg TID PO Last administered on 09/22/16 14:18; Start 09/18/16 at 09:00; Stop 09/22/16 at 18:38; Status DC Quetiapine Fumarate (SEROquel) 25 mg TID PO Last administered on 09/22/16 14: 18; Start 09/18/16 at 09:00; Stop 09/22/16 at 18:38; Status DC Lorazepam (Ativan) 0.125 mg BID PO Last administered on 09/24/16 19:19; Start 09/22/16 at 21:00; Stop 09/25/16 at 20:59; Status DC Quetiapine Fumarate (SEROquel) 25 mg QID PO Last administered on 10/11/16 08:37 ; Start 09/22/16 at 21:00; Stop 10/11/16 at 10:50; Status DC Lorazepam (Ativan) 0.125 mg DAILY PO Last administered on 09/28/16 08:08; Start 09/26/16 at 09:00; Stop 09/29/16 at 08:59; Status DC Buspirone HCl (Buspar) 5 mg BID PO Last administered on 09/25/16 19:29; Start 09/24/16 at 21:00; Stop 09/26/16 at 10:34; Status DC Buspirone HCl (Buspar) 5 mg QID PO Last administered on 10/11/16 08:37; Start 09/26/16 at 13:00; Stop 10/11/16 at 10:50; Status DC Divalproex Sodium (Depakote Sprinkles) 125 mg [id number] PO Last administered on 07:47; Start 09/27/16 at 09:00; Stop 09/29/16 at 11:04; Status DC Potassium Chloride (Klor-Con) 20 meq BID PO Last administered on 10/11/16 08:38 ; Start 09/28/16 at 21:00; Stop 10/11/16 at 10:50; Status DC Divalproex Sodium (Depakote Sprinkles) 125 mg TID PO Last administered on 07:54; Start 09/29/16 at 14:00; Stop 10/03/16 at 10:05; Status DC Cyanocobalamin (Vitamin B-12) 250 mcg DAILY PO Last administered on 10/11/16 08 :37; Start 09/30/16 at 12:30; Stop 10/11/16 at 10:50; Status DC Sertraline HCl (Zoloft) 75 mg DAILY PO Last administered on 10/11/16 08:37; Start 10/02/16 at 09:00; Stop 10/11/16 at 10:50; Status DC Artificial Tears (Artificial Tears) 1 drop TID OU Last administered on 08:36; Start 10/02/16 at 21:00; Stop 10/11/16 at 10:50; Status DC Divalproex Sodium (Depakote Sprinkles) 125 mg QID PO Last administered on 17:03; Start 10/03/16 at 13:00; Stop 10/07/16 at 18:09; Status DC Trazodone HCl (Desyrel) 25 mg PRN QHS PRN PO INSOMNIA Last administered on 10/06 20:13; Start 10/03/16 at 10:15; Stop 10/11/16 at 10:50; Status DC Divalproex Sodium (Depakote Sprinkles) 250 mg TID PO Last administered on 07:50; Start 10/07/16 at 21:00; Stop 10/08/16 at 11:31; Status DC Divalproex Sodium (Depakote Sprinkles) 125 mg [id number] PO Last administered on 10/09/16 19:38; Start 10/08/16 at 12:00; Stop 10/10/16 at 02:42; Status DC Divalproex Sodium (Depakote Sprinkles) 125 mg [id number] PO Last administered on 08:37; Start 10/10/16 at 09:00; Stop 10/11/16 at 10:50; Status DC Acetaminophen (Tylenol) 650 mg PRN Q6HRS PRN PO PAIN / TEMP; Start 10/10/16 at 17:38; Stop 10/11/16 at 10:50; Status DC Active Scripts Active Reported Buspirone Hcl 5 Mg Tablet 5 Mg PO QID Trazodone Hcl 50 Mg Tablet 25 Mg PO PRN QHS PRN Zoloft (Sertraline Hcl) 50 Mg Tablet 75 Mg PO DAILY Klor-Con M20 (Potassium Chloride) 20 Meq Tab.er.prt 20 Meq PO BID Artificial Tears Eye Drops (Dextran 70/Hypromellose) 15 Ml Drops 1 Drp OU TID Olanzapine Odt (Olanzapine) 5 Mg Tab.rapdis 2.5 Mg PO PRN Q4HRS PRN Analgesic [place] (Methyl Salicylate/Menthol) 28 Gm Oint...g. 1 Beck TP PRN QID PRN Maalox Maximum Strength Susp (Mag Hydrox/Al Hydrox/Simeth) 355 Ml Oral.susp 15 Ml PO PRN AFTMEALHC PRN Milk Of Magnesia (Magnesium Hydroxide) 2,400 Mg/10 Ml Oral.susp 2,400 Mg PO PRN QHS PRN Depakote Sprinkle (Divalproex Sodium) 125 Mg Cap.sprink 125 Mg PO [id number] Vitamin B-12 (Cyanocobalamin (Vitamin B-12)) 1,000 Mcg Tablet 250 Mcg PO DAILY Vitamin D3 (Cholecalciferol (Vitamin D3)) 5,000 Unit Tablet 5,000 Unit PO WEEKLY Cetirizine Hcl 10 Mg Tablet 10 Mg PO DAILY Tylenol (Acetaminophen) 325 Mg Tablet 650 Mg PO PRN Q6HRS PRN Seroquel (Quetiapine Fumarate) 25 Mg Tablet 25 Mg PO QID Voltaren (Diclofenac Sodium) 100 Gm Gel..gram. 1 Beck TP BID Lorazepam 0.5 Mg Tablet 0.5 Mg PO TID PRN Melatin (Melatonin) 3 Mg Tablet 3 Mg PO QHS Metoprolol Succinate ( Xl ) (Metoprolol Succinate) 25 Mg Tab.er.24h 25 Mg PO BID Dilantin (Phenytoin Sodium Extended) 100 Mg Capsule 100 Mg PO BID Glucosamine Sulfate (Glucosamine Sulfate 2KCL) 1,000 Mg Tablet 1,000 Mg PO DAILY Aspirin 81 Mg Tab.chew 81 Mg PO DAILY Diagnosis: Problems: (1) Impulse control disorder (2) Dementia, vascular, with depression (3) Dementia, vascular, with delusions (4) Dementia in Alzheimer's disease with depression (5) Dementia in Alzheimer's disease with delusions (6) Anxiety disorder (7) Dementia with behavioral disturbance NAKIA KO MD Oct 11, 2016 18:21
--- NOTE | 2016-10-11 22:51 | PN ---
DATE: 10/10/2016 This late entry 10/10 covers elements not covered in my initial note of 10/10. The patient was staffed at the treatment team meeting with the entire team morning of 10/10, seen individually evening of 10/10. Reviewed the patient's history, information from family, placement options at treatment team meeting. The previous evening, she was somewhat delusional, wanting to go to school, but was redirectable, takes her meds in vanilla ice cream. REVIEW OF SYSTEMS: No CV, , pulmonary, eye, ENT system symptoms on review. Reliability poor. MENTAL STATUS EXAM: Oriented to herself. Insight, judgment, recent and remote memory, attention, concentration, fund of knowledge poor, consistent with her diagnosis mentioned in my initial note. LABORATORY DATA: Reviewed. IMPRESSION: Unchanged from initial note. PLAN: Continue current psychotropics. I have carefully reviewed the drug interactions, risk/benefit ratio favors no change for now. Consider transition to intermediate 10/11. NAKIA KO MD DR: LUCRECIA/luz JOB#: [id number] / [id number]
--- NOTE | 2016-10-14 07:18 | DS ---
DATE OF DISCHARGE: 10/11/2016 DISCHARGE SUMMARY/PSYCHIATRIC PROGRESS NOTE This is a late entry for date of service 10/11/2016 and covers the elements not covered in my initial note of 10/11/2016. REASON FOR ADMISSION: Please refer to the admission history for details. Briefly, the patient is an 86-year-old female referred from [facility] in [place], by her primary care physician on account of worsening confusion, being agitated, exit seeking, attempting to break windows, swinging at staff, worsening anxiety. Behaviors were deemed unmanageable, dangerous at the nursing facility. Having failed outpatient psychiatric interventions. She is referred for inpatient psychiatric stabilization. SIGNIFICANT FINDINGS AND CLINICAL COURSE: Following admission, the patient was seen daily individually by myself, followed medically per Dr. Narayanan/Dr. Oneil. Initially, the patient was quite paranoid, delusional, intermittently agitated, suddenly very confused consistent with the diagnosis. Adjustments were made in her psychotropics, which were administered in vanilla ice cream since this was one of the few ways she would find this ____. She seemed to stabilize on a combination of melatonin 3 mg at bedtime, Ativan 0.5 mg t.i.d. p.r.n., Seroquel 25 mg 4 times a day, Zoloft 75 mg a day, Zyprexa Zydis 2.5 mg ____ p.r.n. psychosis, agitation; BuSpar 5 mg 4 times a day, Depakote 125 mg 4 times a day, trazodone 25 mg bedtime p.r.n., may repeat x 1. She was also on Dilantin 100 mg twice a day. Valproic acid level was somewhat subtherapeutic but clinically adequate as behaviorally she was doing much better prior to discharge on 10/11/2016. REVIEW OF SYSTEMS: No CV, , eye, ENT or pulmonary system symptoms on review. Reliability poor. MENTAL STATUS EXAM: Oriented to herself. Insight, judgment, recent and remote, attention, concentration, fund of knowledge poor, consistent with her diagnosis mentioned in my initial note. FINAL DIAGNOSES: Major neurocognitive disorder, vascular with depression, delusion, behavioral disturbance; anxiety disorder, unspecified; impulse control disorder, unspecified. Rest diagnoses unchanged from admission. DISCHARGE MEDICATIONS: Please refer to the MRAD. DISCHARGE INSTRUCTIONS: Outpatient psychiatric and medical followup at the retirement. Time for discharge and management greater than 30 minutes. NAKIA KO MD DR: LUCRECIA/luz JOB#: [id number] / [id number]
== END 2016-10-11 10:10 | disposition home or self-care (01) | DRG 884 ==
LOC: ER 11:12 → EEVIPCON 13:12 → GEROPSY 13:12 → ER 13:12
PROVIDERS: ADMIT Psychiatry & Neurology Psychiatry; ATTEND Psychiatry & Neurology Psychiatry
DX: F01.51 Vascular dementia, unspecified severity, with behavioral disturbance (principal); F02.81 Dementia in other diseases classified elsewhere, unspecified severity, with behavioral disturbance; F32.9 Major depressive disorder, single episode, unspecified; F41.9 Anxiety disorder, unspecified; F63.9 Impulse disorder, unspecified; G30.9 Alzheimer's disease, unspecified; F22 Delusional disorders; G40.909 Epilepsy, unspecified, not intractable, without status epilepticus; I10 Essential (primary) hypertension; Z66 Do not resuscitate; G47.00 Insomnia, unspecified; J30.2 Other seasonal allergic rhinitis; M25.512 Pain in left shoulder
CPT/HCPCS: 36415; 70450; 80048; 80053; 80061; 80164; 80185; 81001; 82306; 82550; 82607; 83036; 83540; 83550; 83605; 83735; 84436; 84443; 84480; 84484; 85027; 86592; 86593; 87086; 93005; 99285-25

== ENCOUNTER 2016-10-18 19:42 | Inpatient (IN) | payer MEDICARE, OTHER ==
[~2016-10-18] VITALS: Ht 160 cm; Wt 56.7 kg
[~2016-10-18 19:42] MED LIST: ACET325T9 PO; ASPI-630 PO; BUSP5TAB PO; CETI10TA16 PO; CHOL500016 PO; CYAN10005 PO; DEXT15DR5 OU; DICL100G18 TP; DIVA125C PO; LORA0.5T PO; LORA10TA68 PO; LORA2ORA8 SL; MAG355OR12 PO; MAGN2400 PO; MELA3TAB45 PO; METH29OI TP; METO25TA9 PO; OLAN5TAB7 PO; PHEN100C PO; POTA20TA4 PO; QUET25TA5 PO; SERT50TA PO; TRAZ50TA15 PO; [UNRECOGNIZED DRUG - CODE] PO
[2016-10-18] MEDS ORDERED: HALOPERIDOL LACT 5 MG/ML VIAL. IM ONE ×2 (20:00)
[2016-10-18] MEDS ORDERED: LORazepam 2 MG/ML VIAL IV ONE (20:00)
[2016-10-18] MEDS ORDERED: LORazepam 2 MG/ML VIAL IM ONE (20:00)
--- NOTE | 2016-10-18 20:04 | PHYS DOC ---
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 Patient's been seen in our facility for the exact same presentation. Review of Systems Review of Systems Except for penitentiary notes no history is being provided by the patient. This is secondary to her medical condition Constitutional: Denies fever or chills [] Eyes: Denies change in visual acuity, redness, or eye pain [] HENT: Denies nasal congestion or sore throat [] Respiratory: Denies cough or shortness of breath [] Cardiovascular: No additional information not addressed in HPI [] GI: Denies abdominal pain, nausea, vomiting, bloody stools or diarrhea [] : Denies dysuria or hematuria [] Musculoskeletal: Denies back pain or joint pain [] Integument: Denies rash or skin lesions [] Neurologic: Denies headache, focal weakness or sensory changes [] Endocrine: Denies polyuria or polydipsia [] all this history is provided by the penitentiary notes and staff and EMS report. Current Medications Current Medications Current Medications Medications (Trade) Dose Ordered Sig/Antonina Start Time Stop Time Status Last Admin Dose Admin Haloperidol Lactate (Haldol) 5 mg 1X ONCE 10/18/16 20:00 10/18/16 20:01 UNV Lorazepam (Ativan) 2 mg 1X ONCE 10/18/16 20:00 10/18/16 20:01 Allergies Allergies Allergies Coded Allergies Type Severity Reaction Last Updated Verified No Known Drug Allergies 09/13/16 No Physical Exam Physical Exam Patient very angry noncompliant when on sitdown percent. Constitutional: Well developed, well nourished, she is thin and cachectic. [] HENT: Normocephalic, atraumatic, bilateral external ears normal, dry mucous membranes nose normal. [] Eyes: PERRLA, EOMI, conjunctiva normal, no discharge. [] Neck: Normal range of motion, no tenderness, supple, no stridor. [] Cardiovascular:Heart rate regular rhythm, no murmur [] Lungs & Thorax: Bilateral breath sounds clear to auscultation [] Abdomen: Bowel sounds normal, soft, no tenderness, no masses, no pulsatile masses. [] Skin: Warm, dry, no erythema, no rash. [] Back: No tenderness, no CVA tenderness. [] Extremities: No tenderness, no cyanosis, no clubbing, ROM intact, no edema. [] Neurologic: She is awake alert and oriented 1 she is very agitated she is able to walk around the room without issue. She has been grabbing at staff and been very violent. She's been expressing very violent potentially dangerous statements. Psychologic: Her affect is very labile her judgment is impaired. Current Patient Data Lab Results Laboratory Tests Test 10/18/16 19:52 10/18/16 20:10 Ethyl Alcohol Level < 10 mg/dL (0-10) White Blood Count 7.6 x10^3/uL (4.0-11.0) Red Blood Count 3.79 x10^6/uL (3.50-5.40) Hemoglobin 11.6 g/dL (12.0-15.5) L Hematocrit 35.0 % (36.0-47.0) L Mean Corpuscular Volume 92 fL (79-100) Mean Corpuscular Hemoglobin 31 pg (25-35) Mean Corpuscular Hemoglobin Concent 33 g/dL (31-37) Red Cell Distribution Width 14.6 % (11.5-14.5) H Platelet Count 212 x10^3/uL (140-400) Neutrophils (%) (Auto) 48 % (31-73) Lymphocytes (%) (Auto) 39 % (24-48) Monocytes (%) (Auto) 11 % (0-9) H Eosinophils (%) (Auto) 2 % (0-3) Basophils (%) (Auto) 0 % (0-3) Neutrophils # (Auto) 3.6 x10^3uL (1.8-7.7) Lymphocytes # (Auto) 3.0 x10^3/uL (1.0-4.8) Monocytes # (Auto) 0.8 x10^3/uL (0.0-1.1) Eosinophils # (Auto) 0.2 x10^3/uL (0.0-0.7) Basophils # (Auto) 0.0 x10^3/uL (0.0-0.2) Urine Collection Type U cath Urine Color Yellow Urine Clarity Clear Urine pH >8.5 Urine Specific [place] 1.015 Urine Protein Trace (NEG-TRACE) Urine Glucose (UA) Neg mg/dL (NEG) Urine Ketones (Stick) Trace mg/dL (NEG) Urine Blood Neg (NEG) Urine Nitrite Neg (NEG) Urine Bilirubin Neg (NEG) Urine Urobilinogen Dipstick 0.2 mg/dL (0.2 mg/dL) Urine Leukocyte Esterase Neg (NEG) Urine RBC 0 /HPF (0-2) Urine WBC 0 /HPF (0-4) Urine Squamous Epithelial Cells Occ /LPF Urine Renal Epithelial Cells Occ /LPF Urine Bacteria 0 /HPF (0-FEW) Urine Mucus Slight /LPF Sodium Level 140 mmol/L (136-145) Potassium Level 3.8 mmol/L (3.5-5.1) Chloride Level 105 mmol/L (98-107) Carbon Dioxide Level 25 mmol/L (21-32) Anion Gap 10 (6-14) Blood Urea Nitrogen 14 mg/dL (7-20) Creatinine 1.1 mg/dL (0.6-1.0) H Estimated GFR (Cockcroft-Gault) 47.2 BUN/Creatinine Ratio 13 (6-20) Glucose Level 93 mg/dL (70-99) Calcium Level 9.1 mg/dL (8.5-10.1) Magnesium Level 2.0 mg/dL (1.8-2.4) Total Bilirubin 0.4 mg/dL (0.2-1.0) Aspartate Amino Transferase (AST) 23 U/L (15-37) Alanine Aminotransferase (ALT) 26 U/L (14-59) Alkaline Phosphatase 153 U/L (46-116) H Troponin I Quantitative < 0.017 ng/mL (0-0.055) Total Protein 7.2 g/dL (6.4-8.2) Albumin 3.9 g/dL (3.4-5.0) Albumin/Globulin Ratio 1.2 (1.0-1.7) Salicylates Level 0.3 mg/dL (2.8-20.0) L Salicylate Last Dose Date 10/18/16 Salicylate Last Dose Time 0000 Urine Opiates Screen Neg (NEG) Urine Methadone Screen Neg (NEG) Acetaminophen Level < 10 mcg/mL (10-30) L Acetaminophen Last Dose Date 10/18/16 Acetaminophen Last Dose Time 0000 Urine Barbiturates Neg (NEG) Phenytoin (Dilantin) Level 14.9 mcg/mL (10.0-20.0) Phenytoin Last Dose Date 10/18/16 Phenytoin Last Dose Time 0000 Urine Phencyclidine Screen Neg (NEG) Urine Amphetamine/Methamphetamine Neg (NEG) Urine Benzodiazepines Screen Neg (NEG) Urine Cocaine Screen Neg (NEG) Urine Cannabinoids Screen Neg (NEG) Urine Ethyl Alcohol Neg (NEG) EKG EKG [] EKG timed at 8:[address] Mendoza demonstrated heart rate of 61, ND interval is normal at 168, QRS width at normal at 82, QTc is 426. This is a normal EKG normal sinus rhythm with no ST segment or T-wave changes to the acute coronary ischemia and no apparent electrolyte abnormalities as demonstrated by normal QRS width no T-wave abdomen amount is no U waves no P wave abnormalities Radiology/Procedures Radiology/Procedures [] Course & Med Decision Making Course & Med Decision Making Pertinent Labs and Imaging studies reviewed. (See chart for details) she presents very agitated attempting to push pull the provider and the nursing staff. After several attempts to deescalate the situation quietly giving her fluids, oral medications or an IM shot for her agitation patient became increasingly aggressive with staff. We escorted her to the bed up. She is a position removing her dangers clothing and providing her medications through an IM shot Haldol and Ativan help provide some control of the situation to prevent injury to the patient and the staff., At one point in time she exclaimed "" you are a thief and a liar." Her why she was referred to our facilities for an evaluation. She is clearly not having lucid thoughts. Patient was much calmer at 9 PM after she received Haldol and Ativan. She's been compliant with medical staff requirements and she is now safe. She is in bed without physical restraints. But she is resting quietly. (Work reviewed by me at approximate 9:28 PM demonstrates no occult cause for her altered mental status and aggression as demonstrated by normal TSH, normal troponin, normal CMP , normal CBC, normal urinalysis. At least there is no infectious cause or cardiac cause that I can identify causing her acute aggression. Impression: Acute adjustment disorder, dementia acute agitation Dragon Disclaimer Dragon Disclaimer This chart was dictated in whole or in part using Voice Recognition software in a busy, high-work load, and often noisy Emergency Department environment. It may contain unintended and wholly unrecognized errors or omissions. Departure Departure: Impression: Primary Impression: Dementia with behavioral disturbance Disposition: ADMITTED INPATIENT Admitting Physician: Other Condition: GUARDED Referrals: LEEANNE EAST JR, MD (PCP) HARISH MENDOZA MD Oct 18, 2016 20:04
[2016-10-18 20:31] LABS: BASO % 0 % (0-3); EOS # 0.2 x10^3/uL (0.0-0.7); EOS % 2 % (0-3); HEMOGLOBIN 11.6 g/dL (12.0-15.5); LYMPH % 39 % (24-48); MEAN CORPUSCULAR HEMOGLOBIN 31 pg (25-35); MEAN CORPUSCULAR HGB CONC 33 g/dL (31-37); MEAN CORPUSCULAR VOLUME 92 fL (79-100); MONO # 0.8 x10^3/uL (0.0-1.1); MONO % 11 % (0-9); NEUT # 3.6 x10^3uL (1.8-7.7); NEUT % 48 % (31-73); PLATELET COUNT 212 x10^3/uL (140-400); RED BLOOD COUNT 3.79 x10^6/uL (3.50-5.40); RED CELL DISTRIBUTION WIDTH 14.6 % (11.5-14.5); WHITE BLOOD COUNT 7.6 x10^3/uL (4.0-11.0)
[2016-10-18 20:37] LABS: METHADONE NEG (NEG)
[2016-10-18 20:40] LABS: BILIRUBIN,URINE NEG (NEG); CLARITY,URINE CLEAR; COLOR,URINE YELLOW; GLUCOSE,URINE NEG (NEG)
[2016-10-18 20:41] LABS: BACTERIA,URINE 0 /HPF (0-FEW); NITRITE,URINE NEG (NEG); RBC,URINE 0 /HPF (0-2); SQUAMOUS EPITHELIAL CELL,UR OCC /LPF; UROBILINOGEN,URINE 0.2 mg/dL (0.2 mg/dL); WBC,URINE 0 /HPF (0-4)
[2016-10-18 20:46] LABS: ALBUMIN 3.9 g/dL (3.4-5.0); ALBUMIN/GLOBULIN RATIO 1.2 (1.0-1.7); BARBITURATES NEG (NEG); BENZODIAZEPINES NEG (NEG); CALCIUM 9.1 mg/dL (8.5-10.1); CANNABINOIDS NEG (NEG); COCAINE NEG (NEG); CREATININE 1.1 mg/dL (0.6-1.0); GFR 47.2; OPIATES NEG (NEG); PHENCYCLIDINE NEG (NEG); POTASSIUM 3.8 mmol/L (3.5-5.1); TOTAL BILIRUBIN 0.4 mg/dL (0.2-1.0); TOTAL PROTEIN 7.2 g/dL (6.4-8.2)
[2016-10-18 20:51] LABS: AMPHETAMINE/METHAMPHETAMINE NEG (NEG); SALIC 0.3 mg/dL (2.8-20.0)
[2016-10-18 20:52] LABS: ACETAMIN < 10 mcg/mL (10-30)
[2016-10-18 21:02] LABS: PHENY 14.9 mcg/mL (10.0-20.0)
--- NOTE | 2016-10-18 22:06 | EKG ---
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
[2016-10-18] MEDS: MELATONIN 3 MG TABLET PO SCH (23:00)
[2016-10-19 01:33] LABS: VAL ACID 32 mcg/mL (50-100)
--- NOTE | 2016-10-19 02:57 | ACF ---
Admission Criteria Forms PSYCHIATRIC DISORDERS Clinical Indications for Inpatient Care (Place 'X' for any and all applicable criteria): Ongoing inpatient care may be needed for 1 or more of the following(1)(2)(3)(4)( 6)(7)(8): [ ]I. Danger to self or others not manageable at lower level of care. [ ]II. Grave disability (eg, inability to perform self care necessary at lower level of care) [ ]III. Agitation or inappropriate behavior interfering with care for primary condition (eg, attempting to discontinue lines or drains prematurely, unable to cooperate with respiratory care) [X]IV. Severe disability or disorder indicated by ALL of the following: [X]a) Severe behavioral health disorder-related symptoms or condition indicated by 1 or more of the following: [ ]i) Severe problem with cognition, memory, judgment, or impulse control [X]ii) Severe clinical manifestations (eg, hallucinations, delusions, other acute psychotic symptoms, tan, extreme agitation or anxiety) [X]b) Patient management at lower level of care is not feasible until acute intervention or modification is initiated. Extended stay beyond goal length of stay for the primary condition may be needed untilALLof the following are present(1)(2)(3)(4)(722)(23): [ ]a) Danger to self or others is absent or manageable at lower level of care [ ]b) Behavior crisis management, including physical or chemical restraints, is required and is not available at a lower level of care. [ ]c) Behavioral symptoms (e.g., agitation, somnolence, inappropriate behavior) are present, and are not manageable at a lower level of care. [ ]d) Patient cannot understand follow-up treatment and crisis plan. [ ]e) Provider and supports are sufficiently available at lower level of care. [ ]f) Patient can participate (e.g., verify absence of plan for harm) and is in needed of monitoring. The original [facility] [employer] content created by [facility] [employer] has been revised. The portions of the content which have been revised are identified through the use of italic text, and [employer] has neither reviewed nor approved the modified material. All other unmodified content is copyright [facility] [employer]. Please see references footnoted in the original [facility] edition 2015 Admission Criteria Met?: Yes ALLIE MURRAY Oct 19, 2016 02:57
[2016-10-19 03:13] VITALS: BP 114/64
--- NOTE | 2016-10-19 06:05 | PDOC1 ---
History of Present Illness Reason for Visit: Behaviors History of Present Illness Pt sent from [place] due to behaviors, refusing meds and aggressive w/ staff. Pt has been seen here before for the same reason. She is a very poor historian. 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 Past Surgical History: No pertinent history Family History: No pertinent hx Past Social History Smoke: No Alcohol: none Drugs: None Lives: [place]-Way Review of Systems Review Of Systems ROS unobtainable due to pt's mental status Allergies: Coded Allergies: No Known Drug Allergies (Unverified , 09/13/16) Medications Current Medications Lorazepam (Ativan) 2 mg 1X ONCE IM Last administered on 10/18/16 20:13; Start 10/18/16 at 20:00; Stop 10/18/16 at 20:01; Status DC Haloperidol Lactate (Haldol) 5 mg 1X ONCE IM Last administered on 10/18/16 20 :13; Start 10/18/16 at 20:00; Stop 10/18/16 at 20:02; Status DC Lorazepam (Ativan) 2 mg 1X ONCE IV ; Start 10/18/16 at 20:00; Stop 10/18/16 at 20:02; Status DC Haloperidol Lactate (Haldol) 5 mg 1X ONCE IM ; Start 10/18/16 at 20:00; Stop at 20:02; Status DC Buspirone HCl (Buspar) 5 mg QID PO ; Start 10/19/16 at 09:00 Divalproex Sodium (Depakote Sprinkles) 125 mg [id number] PO ; Start 10/19/16 at 09: 00 Lorazepam (Ativan) 0.5 mg PRN TID PRN PO ANXIETY / AGITATION; Start 10/18/16 at 23:00 Olanzapine (ZyPREXA ZYDIS) 2.5 mg PRN Q4HRS PRN PO PSYCHOSIS; Start 10/18/16 at 23:00 Quetiapine Fumarate (SEROquel) 25 mg QID PO ; Start 10/19/16 at 09:00 Sertraline HCl (Zoloft) 75 mg DAILY PO ; Start 10/19/16 at 09:00 Trazodone HCl (Desyrel) 25 mg PRN QHS PRN PO INSOMNIA; Start 10/18/16 at 23:00 Melatonin 3 mg QHS PO ; Start 10/18/16 at 23:00 Pneumococcal Polyvalent Vaccine (Pneumovax 23) 0.5 ml ONCE ONCE VAX IM ; Start 10/19/16 at 09:00; Stop 10/19/16 at 09:01; Status UNV Active Scripts Active Reported Buspirone Hcl 5 Mg Tablet 5 Mg PO QID Trazodone Hcl 50 Mg Tablet 25 Mg PO PRN QHS PRN Zoloft (Sertraline Hcl) 50 Mg Tablet 75 Mg PO DAILY Klor-Con M20 (Potassium Chloride) 20 Meq Tab.er.prt 20 Meq PO BID Artificial Tears Eye Drops (Dextran 70/Hypromellose) 15 Ml Drops 1 Drp OU TID Olanzapine Odt (Olanzapine) 5 Mg Tab.rapdis 2.5 Mg PO PRN Q4HRS PRN Analgesic [place] (Methyl Salicylate/Menthol) 28 Gm Oint...g. 1 Beck TP PRN QID PRN Maalox Maximum Strength Susp (Mag Hydrox/Al Hydrox/Simeth) 355 Ml Oral.susp 15 Ml PO PRN AFTMEALHC PRN Milk Of Magnesia (Magnesium Hydroxide) 2,400 Mg/10 Ml Oral.susp 2,400 Mg PO PRN QHS PRN Depakote Sprinkle (Divalproex Sodium) 125 Mg Cap.sprink 125 Mg PO [id number] Vitamin B-12 (Cyanocobalamin (Vitamin B-12)) 1,000 Mcg Tablet 250 Mcg PO DAILY Vitamin D3 (Cholecalciferol (Vitamin D3)) 5,000 Unit Tablet 5,000 Unit PO WEEKLY Cetirizine Hcl 10 Mg Tablet 10 Mg PO DAILY Tylenol (Acetaminophen) 325 Mg Tablet 650 Mg PO PRN Q6HRS PRN Seroquel (Quetiapine Fumarate) 25 Mg Tablet 25 Mg PO QID Voltaren (Diclofenac Sodium) 100 Gm Gel..gram. 1 Beck TP BID Lorazepam 0.5 Mg Tablet 0.5 Mg PO TID PRN Melatin (Melatonin) 3 Mg Tablet 3 Mg PO QHS Metoprolol Succinate ( Xl ) (Metoprolol Succinate) 25 Mg Tab.er.24h 25 Mg PO BID Dilantin (Phenytoin Sodium Extended) 100 Mg Capsule 100 Mg PO BID Glucosamine Sulfate (Glucosamine Sulfate 2KCL) 1,000 Mg Tablet 1,000 Mg PO DAILY Aspirin 81 Mg Tab.chew 81 Mg PO DAILY Exam Vital Signs Vital Signs Date Time Temp Pulse Resp B/P (MAP) Pulse Ox O2 Delivery O2 Flow Rate FiO2 10/19/16 03:13 96.6 56 18 114/64 (81) 96 Room Air General Appearance: Alert, Cooperative, No acute distress HEENT: Atraumatic, PERRLA, EOMI, Mucous membr. moist/pink, Other (Left eye with some crusting and drainage. Was on liquid tears last visit. Neck supple, no JVD or LAD) Respiratory: Clear to auscultation, Normal air movement Heart: Regular rate, Normal S1, Normal S2, No murmurs Abdominal: Soft, No tenderness Extremities: No edema, Normal pulses Skin: No rashes Neuro: Normal tone, Cranial nerves 3-12 NL Psych/Mental Status: Mood NL Assessment/Plan Assessment/Plan 1. Dementia w/ behaviors: Per Dr. Garcia 2. HTN: Stable, cont home meds. 3. Seizures: None recent, cont home meds, monitor levels 4. HPL: No evidence for improved mortality by starting pt on statin, would recommend not treating at this point. 5. Elevated TSH: T4 is normal, recommend repeat in 3 months. 6. Dry eyes: Start liquid tears. 7. Elevated alk phos: F/u in 1 week. Etiology unclear. 8. DVT proph: LADARIUS nafisavero. COURSE Allergies Coded Allergies Type Severity Reaction Last Updated Verified No Known Drug Allergies 09/13/16 No Laboratory Tests Test 10/18/16 19:52 10/18/16 20:10 10/18/16 23:59 Ethyl Alcohol Level < 10 mg/dL (0-10) White Blood Count 7.6 x10^3/uL (4.0-11.0) Red Blood Count 3.79 x10^6/uL (3.50-5.40) Hemoglobin 11.6 g/dL (12.0-15.5) Hematocrit 35.0 % (36.0-47.0) Mean Corpuscular Volume 92 fL (79-100) Mean Corpuscular Hemoglobin 31 pg (25-35) Mean Corpuscular Hemoglobin Concent 33 g/dL (31-37) Red Cell Distribution Width 14.6 % (11.5-14.5) Platelet Count 212 x10^3/uL (140-400) Neutrophils (%) (Auto) 48 % (31-73) Lymphocytes (%) (Auto) 39 % (24-48) Monocytes (%) (Auto) 11 % (0-9) Eosinophils (%) (Auto) 2 % (0-3) Basophils (%) (Auto) 0 % (0-3) Neutrophils # (Auto) 3.6 x10^3uL (1.8-7.7) Lymphocytes # (Auto) 3.0 x10^3/uL (1.0-4.8) Monocytes # (Auto) 0.8 x10^3/uL (0.0-1.1) Eosinophils # (Auto) 0.2 x10^3/uL (0.0-0.7) Basophils # (Auto) 0.0 x10^3/uL (0.0-0.2) Urine Collection Type U cath Urine Color Yellow Urine Clarity Clear Urine pH >8.5 Urine Specific [place] 1.015 Urine Protein Trace (NEG-TRACE) Urine Glucose (UA) Neg mg/dL (NEG) Urine Ketones (Stick) Trace mg/dL (NEG) Urine Blood Neg (NEG) Urine Nitrite Neg (NEG) Urine Bilirubin Neg (NEG) Urine Urobilinogen Dipstick 0.2 mg/dL (0.2 mg/dL) Urine Leukocyte Esterase Neg (NEG) Urine RBC 0 /HPF (0-2) Urine WBC 0 /HPF (0-4) Urine Squamous Epithelial Cells Occ /LPF Urine Renal Epithelial Cells Occ /LPF Urine Bacteria 0 /HPF (0-FEW) Urine Mucus Slight /LPF Sodium Level 140 mmol/L (136-145) Potassium Level 3.8 mmol/L (3.5-5.1) Chloride Level 105 mmol/L (98-107) Carbon Dioxide Level 25 mmol/L (21-32) Anion Gap 10 (6-14) Blood Urea Nitrogen 14 mg/dL (7-20) Creatinine 1.1 mg/dL (0.6-1.0) Estimated GFR (Cockcroft-Gault) 47.2 BUN/Creatinine Ratio 13 (6-20) Glucose Level 93 mg/dL (70-99) Calcium Level 9.1 mg/dL (8.5-10.1) Magnesium Level 2.0 mg/dL (1.8-2.4) Total Bilirubin 0.4 mg/dL (0.2-1.0) Aspartate Amino Transf (AST/SGOT) 23 U/L (15-37) Alanine Aminotransferase (ALT/SGPT) 26 U/L (14-59) Alkaline Phosphatase 153 U/L (46-116) Troponin I Quantitative < 0.017 ng/mL (0-0.055) Total Protein 7.2 g/dL (6.4-8.2) Albumin 3.9 g/dL (3.4-5.0) Albumin/Globulin Ratio 1.2 (1.0-1.7) Salicylates Level 0.3 mg/dL (2.8-20.0) Salicylate Last Dose Date 10/18/16 Salicylate Last Dose Time 0000 Urine Opiates Screen Neg (NEG) Urine Methadone Screen Neg (NEG) Acetaminophen Level < 10 mcg/mL (10-30) Acetaminophen Last Dose Date 10/18/16 Acetaminophen Last Dose Time 0000 Urine Barbiturates Neg (NEG) Phenytoin (Dilantin) Level 14.9 mcg/mL (10.0-20.0) Phenytoin Last Dose Date 10/18/16 Phenytoin Last Dose Time 0000 Urine Phencyclidine Screen Neg (NEG) Urine Amphetamine/Methamphetamine Neg (NEG) Urine Benzodiazepines Screen Neg (NEG) Urine Cocaine Screen Neg (NEG) Urine Cannabinoids Screen Neg (NEG) Urine Ethyl Alcohol Neg (NEG) Valproic Acid (Depakene) Level 32 mcg/mL (50-100) Valproic Acid Last Dose Date 10/11/16 Valproic Acid Last Dose Time 2000 Current Medications Medications (Trade) Dose Ordered Sig/Antonina Route PRN Reason Start Time Stop Time Status Last Admin Dose Admin Lorazepam (Ativan) 2 mg 1X ONCE IM 10/18/16 20:00 10/18/16 20:01 DC 10/18/16 20:13 Haloperidol Lactate (Haldol) 5 mg 1X ONCE IM 10/18/16 20:00 10/18/16 20:02 DC 10/18/16 20:13 Lorazepam (Ativan) 2 mg 1X ONCE IV 10/18/16 20:00 10/18/16 20:02 DC Haloperidol Lactate (Haldol) 5 mg 1X ONCE IM 10/18/16 20:00 10/18/16 20:02 DC Buspirone HCl (Buspar) 5 mg QID PO 10/19/16 09:00 Divalproex Sodium (Depakote Sprinkles) 125 mg [id number] PO 10/19/16 09:00 Lorazepam (Ativan) 0.5 mg PRN TID PRN PO ANXIETY / AGITATION 10/18/16 23:00 Olanzapine (ZyPREXA ZYDIS) 2.5 mg PRN Q4HRS PRN PO PSYCHOSIS 10/18/16 23:00 Quetiapine Fumarate (SEROquel) 25 mg QID PO 10/19/16 09:00 Sertraline HCl (Zoloft) 75 mg DAILY PO 10/19/16 09:00 Trazodone HCl (Desyrel) 25 mg PRN QHS PRN PO INSOMNIA 10/18/16 23:00 Melatonin 3 mg QHS PO 10/18/16 23:00 Pneumococcal Polyvalent Vaccine (Pneumovax 23) 0.5 ml ONCE ONCE VAX IM 10/19/16 09:00 10/19/16 09:01 UNV Vital Signs Date Time Temp Pulse Resp B/P (MAP) Pulse Ox O2 Delivery O2 Flow Rate FiO2 10/19/16 03:13 96.6 56 18 114/64 (81) 96 Room Air JACOB COKER MD Oct 19, 2016 06:05
[2016-10-19] MEDS ORDERED: ACETAMINOPHEN 325 MG TABLET PO PRN (06:15)
[2016-10-19] MEDS ORDERED: METHYL SALICYLATE/MENTHOL TOPICAL OINTMENT 29GM TUBE. TP PRN (06:15)
[2016-10-19] MEDS ORDERED: MAG HYDROX/AL HYDROX/SIMETH 30 ML ORAL.SUSP PO PRN (06:15)
[2016-10-19 06:32] VITALS: BP 148/71
[2016-10-19] MEDS ORDERED: MAGNESIUM HYDROXIDE 2,400 MG/30 ML ORAL.SUSP. PO PRN (07:15)
[2016-10-19] MEDS ORDERED: PNEUMOC CONJ VACC 23-VALENT 0.5 ML VIAL. VAX IM ONE (09:00)
[2016-10-19] MEDS: DIVALPROEX 125 MG CAP.SPRINK PO SCH ×4 (09:30→19:43)
[2016-10-19] MEDS: ASPIRIN 81 MG TAB.CHEW PO SCH (09:30)
[2016-10-19] MEDS: busPIRone 5 MG TABLET. PO SCH ×4 (09:30→19:43)
[2016-10-19] MEDS: QUEtiapine 25 MG TABLET. PO SCH ×4 (09:31→19:43)
[2016-10-19] MEDS: PHENYTOIN SODIUM EXTENDED 100 MG CAPSULE PO SCH ×2 (09:31→19:43)
[2016-10-19] MEDS: POTASSIUM CHLORIDE 20 MEQ TABLET.ER. PO SCH ×2 (09:31→19:44)
[2016-10-19] MEDS: SERTRALINE 50 MG TABLET. PO SCH (09:32)
[2016-10-19] MEDS: METOPROLOL SUCC 24HR ER 25 MG TAB.ER.24H. PO SCH ×2 (09:47→19:56)
[2016-10-19] MEDS: POLYVINYL ALCOHOL 1.4% OPHTH SOLUTION 15ML BOTTLE. OU SCH ×3 (09:47→19:46)
[2016-10-19] MEDS: GLUCOSAMINE 500 MG CAPSULE PO SCH (09:47)
[2016-10-19] MEDS: CETIRIZINE HCL 10 MG TABLET PO SCH (09:48)
[2016-10-19] MEDS: DICLOFENAC SODIUM 1% TOPICAL GEL 100GM TUBE. TP SCH ×2 (09:48→19:46)
[2016-10-19] MEDS: CHOLECALCIFEROL (VITAMIN D3) 1,000 UNIT TABLET PO SCH (09:48)
[2016-10-19] MEDS: CYANOCOBALAMIN (VITAMIN B-12) 250 MCG TABLET PO SCH (09:48)
[2016-10-19 12:08] LABS: T3 TOTAL 99 ng/dL (71-180); THYROXINE 4.8 ug/dL (4.5-12.0)
[2016-10-19 16:37] VITALS: BP 126/55
[2016-10-19] MEDS: MELATONIN 3 MG TABLET PO SCH (19:44)
[2016-10-19] MEDS ORDERED: POLYVINYL ALCOHOL 1.4% OPHTH SOLUTION 15ML BOTTLE. OU PRN (20:00)
[2016-10-19 21:11] LABS: HEMOGLOBIN A1C 4.8 % (4.8-5.6)
--- NOTE | 2016-10-19 23:21 | PDOC ---
Exam Dane Demential Exam: Dane Note: Please also refer to the separate dictated note~for this date of service dictated separately.~Patient seen individually. Discussed the patient with Nursing staff reviewed the chart.~Reviewed interim history and current functioning. Reviewed vital signs,~Labs/ Radiology~and current medications noted below. Continue current treatment with the changes noted in the dictated addendum note Assessment: Vital Signs: Vital Signs Date Time Temp Pulse Resp B/P (MAP) Pulse Ox O2 Delivery O2 Flow Rate FiO2 10/19/16 19:56 75 126/55 10/19/16 16:37 98.2 16 97 10/19/16 06:32 Room Air I&O Intake and Output 10/19/16 07:00 Intake Total 0 ml Balance 0 ml Intake Oral 0 ml Labs: Laboratory Tests Test 10/18/16 23:59 Hemoglobin A1c 4.8 % (4.8-5.6) Triglycerides Level 162 mg/dL (0-150) H Cholesterol Level 275 mg/dL (0-200) H LDL Cholesterol, Calculated 171 mg/dL (0-100) H VLDL Cholesterol, Calculated 32 mg/dL (0-40) Non-HDL Cholesterol Calculated 203 mg/dL (0-129) H HDL Cholesterol 72 mg/dL (40-60) H Cholesterol/HDL Ratio 3.0 Thyroxine (T4) 4.8 ug/dL (4.5-12.0) Total Triiodothyronine (TT3) 99 ng/dL (71-180) Valproic Acid Level 32 mcg/mL (50-100) L Valproic Acid Last Dose Date 10/11/16 Valproic Acid Last Dose Time 2000 RPR Titer Additional Testing Pending Current Medications: Meds: Current Medications Lorazepam (Ativan) 2 mg 1X ONCE IM Last administered on 10/18/16 20:13; Start 10/18/16 at 20:00; Stop 10/18/16 at 20:01; Status DC Haloperidol Lactate (Haldol) 5 mg 1X ONCE IM Last administered on 10/18/16 20 :13; Start 10/18/16 at 20:00; Stop 10/18/16 at 20:02; Status DC Lorazepam (Ativan) 2 mg 1X ONCE IV ; Start 10/18/16 at 20:00; Stop 10/18/16 at 20:02; Status DC Haloperidol Lactate (Haldol) 5 mg 1X ONCE IM ; Start 10/18/16 at 20:00; Stop at 20:02; Status DC Buspirone HCl (Buspar) 5 mg QID PO Last administered on 10/19/16 19:43; Start 10/19/16 at 09:00 Divalproex Sodium (Depakote Sprinkles) 125 mg [id number] PO Last administered on 19:43; Start 10/19/16 at 09:00 Lorazepam (Ativan) 0.5 mg PRN TID PRN PO ANXIETY / AGITATION; Start 10/18/16 at 23:00 Olanzapine (ZyPREXA ZYDIS) 2.5 mg PRN Q4HRS PRN PO PSYCHOSIS; Start 10/18/16 at 23:00 Quetiapine Fumarate (SEROquel) 25 mg QID PO Last administered on 10/19/16 19: 43; Start 10/19/16 at 09:00 Sertraline HCl (Zoloft) 75 mg DAILY PO Last administered on 10/19/16 09:32; Start 10/19/16 at 09:00 Trazodone HCl (Desyrel) 25 mg PRN QHS PRN PO INSOMNIA; Start 10/18/16 at 23:00 Melatonin 3 mg QHS PO Last administered on 10/19/16 19:44; Start 10/18/16 at 23:00 Pneumococcal Polyvalent Vaccine (Pneumovax 23) 0.5 ml ONCE ONCE VAX IM ; Start 10/19/16 at 09:00; Stop 10/19/16 at 09:02; Status DC Acetaminophen (Tylenol) 650 mg PRN Q6HRS PRN PO PAIN / TEMP; Start 10/19/16 at 06:15 Aspirin (Children'S Aspirin) 81 mg DAILY PO Last administered on 10/19/16 09: 30; Start 10/19/16 at 09:00 Cetirizine HCl (ZyrTEC) 10 mg DAILY PO ; Start 10/19/16 at 09:00 Cyanocobalamin (Vitamin B-12) 250 mcg DAILY PO ; Start 10/19/16 at 09:00 Diclofenac Sodium (Voltaren) 1 beck BID TP Last administered on 10/19/16 19:46 ; Start 10/19/16 at 09:00 Al Hydroxide/Mg Hydroxide (Mylanta Plus Xs) 15 ml PRN AFTMEALHC PRN PO DYSPEPSIA; Start 10/19/16 at 06:15 Multi-Ingredient Ointment (Analgesic [place]) 1 beck PRN QID PRN TP MUSCLE PAIN; Start 10/19/16 at 06:15 Metoprolol Succinate (Toprol Xl) 25 mg BID PO ; Start 10/19/16 at 09:00 Phenytoin Sodium (Dilantin) 100 mg BID PO Last administered on 10/19/16 19:43 ; Start 10/19/16 at 09:00 Potassium Chloride (Klor-Con) 20 meq BID PO Last administered on 10/19/16 19: 44; Start 10/19/16 at 09:00 Vitamin D (Vitamin D3) 5,000 unit DAILY PO ; Start 10/19/16 at 09:00 Artificial Tears (Artificial Tears) 1 drop TID OU Last administered on 19:46; Start 10/19/16 at 09:00 Glucosamine Sulfate (Glucosamine) 1,000 mg DAILY PO ; Start 10/19/16 at 09:00 Magnesium Hydroxide (Milk Of Magnesia) 2,400 mg PRN QHS PRN PO CONSTIPATION; Start 10/19/16 at 07:15 Artificial Tears (Artificial Tears) 1 drop PRN Q15MIN PRN OU DRY EYE; Start 02/23 at 20:00 Active Scripts Active Reported Buspirone Hcl 5 Mg Tablet 5 Mg PO QID Trazodone Hcl 50 Mg Tablet 25 Mg PO PRN QHS PRN Zoloft (Sertraline Hcl) 50 Mg Tablet 75 Mg PO DAILY Klor-Con M20 (Potassium Chloride) 20 Meq Tab.er.prt 20 Meq PO BID Artificial Tears Eye Drops (Dextran 70/Hypromellose) 15 Ml Drops 1 Drp OU TID Olanzapine Odt (Olanzapine) 5 Mg Tab.rapdis 2.5 Mg PO PRN Q4HRS PRN Analgesic [place] (Methyl Salicylate/Menthol) 28 Gm Oint...g. 1 Beck TP PRN QID PRN Maalox Maximum Strength Susp (Mag Hydrox/Al Hydrox/Simeth) 355 Ml Oral.susp 15 Ml PO PRN AFTMEALHC PRN Milk Of Magnesia (Magnesium Hydroxide) 2,400 Mg/10 Ml Oral.susp 2,400 Mg PO PRN QHS PRN Depakote Sprinkle (Divalproex Sodium) 125 Mg Cap.sprink 125 Mg PO [id number] Vitamin B-12 (Cyanocobalamin (Vitamin B-12)) 1,000 Mcg Tablet 250 Mcg PO DAILY Vitamin D3 (Cholecalciferol (Vitamin D3)) 5,000 Unit Tablet 5,000 Unit PO WEEKLY Cetirizine Hcl 10 Mg Tablet 10 Mg PO DAILY Tylenol (Acetaminophen) 325 Mg Tablet 650 Mg PO PRN Q6HRS PRN Seroquel (Quetiapine Fumarate) 25 Mg Tablet 25 Mg PO QID Voltaren (Diclofenac Sodium) 100 Gm Gel..gram. 1 Bcek TP BID Lorazepam 0.5 Mg Tablet 0.5 Mg PO TID PRN Melatin (Melatonin) 3 Mg Tablet 3 Mg PO QHS Metoprolol Succinate ( Xl ) (Metoprolol Succinate) 25 Mg Tab.er.24h 25 Mg PO BID Dilantin (Phenytoin Sodium Extended) 100 Mg Capsule 100 Mg PO BID Glucosamine Sulfate (Glucosamine Sulfate 2KCL) 1,000 Mg Tablet 1,000 Mg PO DAILY Aspirin 81 Mg Tab.chew 81 Mg PO DAILY Diagnosis: Problems: (1) Dementia with behavioral disturbance (2) Anxiety disorder (3) Dementia in Alzheimer's disease with delusions (4) Dementia in Alzheimer's disease with depression (5) Dementia, vascular, with delusions (6) Dementia, vascular, with depression (7) Impulse control disorder NAKIA KO MD Oct 19, 2016 23:21
[2016-10-20 06:22] VITALS: BP 129/53
[2016-10-20 08:17] LABS: ALBUMIN 3.7 g/dL (3.4-5.0); ALBUMIN/GLOBULIN RATIO 1.1 (1.0-1.7); CALCIUM 8.8 mg/dL (8.5-10.1); CREATININE 0.9 mg/dL (0.6-1.0); GFR 59.5; POTASSIUM 4.2 mmol/L (3.5-5.1); TOTAL BILIRUBIN 0.4 mg/dL (0.2-1.0); TOTAL PROTEIN 7.1 g/dL (6.4-8.2)
[2016-10-20] MEDS: busPIRone 5 MG TABLET. PO SCH ×4 (08:35→20:30)
[2016-10-20] MEDS: ASPIRIN 81 MG TAB.CHEW PO SCH (08:35)
[2016-10-20] MEDS: PHENYTOIN SODIUM EXTENDED 100 MG CAPSULE PO SCH ×2 (08:35→20:31)
[2016-10-20] MEDS: DIVALPROEX 125 MG CAP.SPRINK PO SCH ×4 (08:35→20:29)
[2016-10-20] MEDS: GLUCOSAMINE 500 MG CAPSULE PO SCH (08:36)
[2016-10-20] MEDS: POTASSIUM CHLORIDE 20 MEQ TABLET.ER. PO SCH ×2 (08:36→20:30)
[2016-10-20] MEDS: QUEtiapine 25 MG TABLET. PO SCH ×4 (08:36→20:30)
[2016-10-20] MEDS: METOPROLOL SUCC 24HR ER 25 MG TAB.ER.24H. PO SCH (08:37)
[2016-10-20] MEDS: DICLOFENAC SODIUM 1% TOPICAL GEL 100GM TUBE. TP SCH ×2 (08:38→20:32)
[2016-10-20] MEDS: CETIRIZINE HCL 10 MG TABLET PO SCH (08:38)
[2016-10-20] MEDS: SERTRALINE 50 MG TABLET. PO SCH (08:38)
[2016-10-20] MEDS: CHOLECALCIFEROL (VITAMIN D3) 1,000 UNIT TABLET PO SCH (08:38)
[2016-10-20] MEDS: CYANOCOBALAMIN (VITAMIN B-12) 250 MCG TABLET PO SCH (08:38)
[2016-10-20] MEDS: POLYVINYL ALCOHOL 1.4% OPHTH SOLUTION 15ML BOTTLE. OU SCH ×3 (09:00→20:31)
[2016-10-20 17:39] VITALS: BP 118/62
--- NOTE | 2016-10-20 20:28 | PDOC ---
Exam Dane Demential Exam: Dane Note: Please also refer to the separate dictated note~for this date of service dictated separately.~Patient seen individually. Discussed the patient with Nursing staff reviewed the chart.~Reviewed interim history and current functioning. Reviewed vital signs,~Labs/ Radiology~and current medications noted below. Continue current treatment with the changes noted in the dictated addendum note Assessment: Vital Signs: Vital Signs Date Time Temp Pulse Resp B/P (MAP) Pulse Ox O2 Delivery O2 Flow Rate FiO2 10/20/16 17:39 96.7 72 16 118/62 (80) 98 10/19/16 06:32 Room Air I&O Intake and Output 10/20/16 07:00 Intake Total 840 ml Balance 840 ml Intake Oral 840 ml Labs: Laboratory Tests Test 10/20/16 07:40 Sodium Level 143 mmol/L (136-145) Potassium Level 4.2 mmol/L (3.5-5.1) Chloride Level 107 mmol/L (98-107) Carbon Dioxide Level 28 mmol/L (21-32) Anion Gap 8 (6-14) Blood Urea Nitrogen 13 mg/dL (7-20) Creatinine 0.9 mg/dL (0.6-1.0) Estimated GFR (Cockcroft-Gault) 59.5 BUN/Creatinine Ratio 14 (6-20) Glucose Level 100 mg/dL (70-99) H Calcium Level 8.8 mg/dL (8.5-10.1) Total Bilirubin 0.4 mg/dL (0.2-1.0) Aspartate Amino Transferase (AST) 27 U/L (15-37) Alanine Aminotransferase (ALT) 25 U/L (14-59) Alkaline Phosphatase 155 U/L (46-116) H Total Protein 7.1 g/dL (6.4-8.2) Albumin 3.7 g/dL (3.4-5.0) Albumin/Globulin Ratio 1.1 (1.0-1.7) Current Medications: Meds: Current Medications Lorazepam (Ativan) 2 mg 1X ONCE IM Last administered on 10/18/16 20:13; Start 10/18/16 at 20:00; Stop 10/18/16 at 20:01; Status DC Haloperidol Lactate (Haldol) 5 mg 1X ONCE IM Last administered on 10/18/16 20 :13; Start 10/18/16 at 20:00; Stop 10/18/16 at 20:02; Status DC Lorazepam (Ativan) 2 mg 1X ONCE IV ; Start 10/18/16 at 20:00; Stop 10/18/16 at 20:02; Status DC Haloperidol Lactate (Haldol) 5 mg 1X ONCE IM ; Start 10/18/16 at 20:00; Stop at 20:02; Status DC Buspirone HCl (Buspar) 5 mg QID PO Last administered on 10/20/16 17:18; Start 10/19/16 at 09:00 Divalproex Sodium (Depakote Sprinkles) 125 mg [id number] PO Last administered on 17:18; Start 10/19/16 at 09:00 Lorazepam (Ativan) 0.5 mg PRN TID PRN PO ANXIETY / AGITATION; Start 10/18/16 at 23:00 Olanzapine (ZyPREXA ZYDIS) 2.5 mg PRN Q4HRS PRN PO PSYCHOSIS Last administered on 10/20/16 11:11; Start 10/18/16 at 23:00 Quetiapine Fumarate (SEROquel) 25 mg QID PO Last administered on 10/20/16 17: 18; Start 10/19/16 at 09:00 Sertraline HCl (Zoloft) 75 mg DAILY PO Last administered on 10/20/16 08:38; Start 10/19/16 at 09:00 Trazodone HCl (Desyrel) 25 mg PRN QHS PRN PO INSOMNIA; Start 10/18/16 at 23:00 Melatonin 3 mg QHS PO Last administered on 10/19/16 19:44; Start 10/18/16 at 23:00 Pneumococcal Polyvalent Vaccine (Pneumovax 23) 0.5 ml ONCE ONCE VAX IM ; Start 10/19/16 at 09:00; Stop 10/19/16 at 09:02; Status DC Acetaminophen (Tylenol) 650 mg PRN Q6HRS PRN PO PAIN / TEMP; Start 10/19/16 at 06:15 Aspirin (Children'S Aspirin) 81 mg DAILY PO Last administered on 10/20/16 08: 35; Start 10/19/16 at 09:00 Cetirizine HCl (ZyrTEC) 10 mg DAILY PO Last administered on 10/20/16 08:38; Start 10/19/16 at 09:00 Cyanocobalamin (Vitamin B-12) 250 mcg DAILY PO Last administered on 10/20/16 08:38; Start 10/19/16 at 09:00 Diclofenac Sodium (Voltaren) 1 beck BID TP Last administered on 10/20/16 08:38 ; Start 10/19/16 at 09:00 Al Hydroxide/Mg Hydroxide (Mylanta Plus Xs) 15 ml PRN AFTMEALHC PRN PO DYSPEPSIA; Start 10/19/16 at 06:15 Multi-Ingredient Ointment (Analgesic [place]) 1 beck PRN QID PRN TP MUSCLE PAIN; Start 10/19/16 at 06:15 Metoprolol Succinate (Toprol Xl) 25 mg BID PO Last administered on 10/20/16 08 :37; Start 10/19/16 at 09:00; Stop 10/20/16 at 16:35; Status DC Phenytoin Sodium (Dilantin) 100 mg BID PO Last administered on 10/20/16 08:35 ; Start 10/19/16 at 09:00 Potassium Chloride (Klor-Con) 20 meq BID PO Last administered on 10/20/16 08: 36; Start 10/19/16 at 09:00 Vitamin D (Vitamin D3) 5,000 unit DAILY PO Last administered on 10/20/16 08:38 ; Start 10/19/16 at 09:00 Artificial Tears (Artificial Tears) 1 drop TID OU Last administered on 19:46; Start 10/19/16 at 09:00 Glucosamine Sulfate (Glucosamine) 1,000 mg DAILY PO Last administered on 08:36; Start 10/19/16 at 09:00 Magnesium Hydroxide (Milk Of Magnesia) 2,400 mg PRN QHS PRN PO CONSTIPATION; Start 10/19/16 at 07:15 Artificial Tears (Artificial Tears) 1 drop PRN Q15MIN PRN OU DRY EYE; Start 02/23 at 20:00 Active Scripts Active Reported Buspirone Hcl 5 Mg Tablet 5 Mg PO QID Trazodone Hcl 50 Mg Tablet 25 Mg PO PRN QHS PRN Zoloft (Sertraline Hcl) 50 Mg Tablet 75 Mg PO DAILY Klor-Con M20 (Potassium Chloride) 20 Meq Tab.er.prt 20 Meq PO BID Artificial Tears Eye Drops (Dextran 70/Hypromellose) 15 Ml Drops 1 Drp OU TID Olanzapine Odt (Olanzapine) 5 Mg Tab.rapdis 2.5 Mg PO PRN Q4HRS PRN Analgesic [place] (Methyl Salicylate/Menthol) 28 Gm Oint...g. 1 Beck TP PRN QID PRN Maalox Maximum Strength Susp (Mag Hydrox/Al Hydrox/Simeth) 355 Ml Oral.susp 15 Ml PO PRN AFTMEALHC PRN Milk Of Magnesia (Magnesium Hydroxide) 2,400 Mg/10 Ml Oral.susp 2,400 Mg PO PRN QHS PRN Depakote Sprinkle (Divalproex Sodium) 125 Mg Cap.sprink 125 Mg PO [id number] Vitamin B-12 (Cyanocobalamin (Vitamin B-12)) 1,000 Mcg Tablet 250 Mcg PO DAILY Vitamin D3 (Cholecalciferol (Vitamin D3)) 5,000 Unit Tablet 5,000 Unit PO WEEKLY Cetirizine Hcl 10 Mg Tablet 10 Mg PO DAILY Tylenol (Acetaminophen) 325 Mg Tablet 650 Mg PO PRN Q6HRS PRN Seroquel (Quetiapine Fumarate) 25 Mg Tablet 25 Mg PO QID Voltaren (Diclofenac Sodium) 100 Gm Gel..gram. 1 Beck TP BID Lorazepam 0.5 Mg Tablet 0.5 Mg PO TID PRN Melatin (Melatonin) 3 Mg Tablet 3 Mg PO QHS Metoprolol Succinate ( Xl ) (Metoprolol Succinate) 25 Mg Tab.er.24h 25 Mg PO BID Dilantin (Phenytoin Sodium Extended) 100 Mg Capsule 100 Mg PO BID Glucosamine Sulfate (Glucosamine Sulfate 2KCL) 1,000 Mg Tablet 1,000 Mg PO DAILY Aspirin 81 Mg Tab.chew 81 Mg PO DAILY Diagnosis: Problems: (1) Dementia with behavioral disturbance (2) Anxiety disorder (3) Dementia in Alzheimer's disease with delusions (4) Dementia in Alzheimer's disease with depression (5) Dementia, vascular, with delusions (6) Dementia, vascular, with depression (7) Impulse control disorder NAKIA KO MD Oct 20, 2016 20:28
[2016-10-20] MEDS: MELATONIN 3 MG TABLET PO SCH (20:30)
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
[2016-10-21 06:32] VITALS: BP 125/59
[2016-10-21] MEDS: POLYVINYL ALCOHOL 1.4% OPHTH SOLUTION 15ML BOTTLE. OU SCH ×3 (09:00→20:25)
[2016-10-21] MEDS: GLUCOSAMINE 500 MG CAPSULE PO SCH (09:24)
[2016-10-21] MEDS: QUEtiapine 25 MG TABLET. PO SCH ×4 (09:24→20:29)
[2016-10-21] MEDS: PHENYTOIN SODIUM EXTENDED 100 MG CAPSULE PO SCH ×2 (09:24→20:24)
[2016-10-21] MEDS: DIVALPROEX 125 MG CAP.SPRINK PO SCH ×4 (09:24→20:24)
[2016-10-21] MEDS: CYANOCOBALAMIN (VITAMIN B-12) 250 MCG TABLET PO SCH (09:24)
[2016-10-21] MEDS: ASPIRIN 81 MG TAB.CHEW PO SCH (09:24)
[2016-10-21] MEDS: busPIRone 5 MG TABLET. PO SCH ×4 (09:24→20:24)
[2016-10-21] MEDS: POTASSIUM CHLORIDE 20 MEQ TABLET.ER. PO SCH ×2 (09:24→20:24)
[2016-10-21] MEDS: CETIRIZINE HCL 10 MG TABLET PO SCH (09:25)
[2016-10-21] MEDS: CHOLECALCIFEROL (VITAMIN D3) 1,000 UNIT TABLET PO SCH (09:25)
[2016-10-21] MEDS: SERTRALINE 50 MG TABLET. PO SCH (09:25)
[2016-10-21] MEDS: DICLOFENAC SODIUM 1% TOPICAL GEL 100GM TUBE. TP SCH ×2 (09:26→21:00)
[2016-10-21 17:02] VITALS: BP 139/66
[2016-10-21] MEDS: MELATONIN 3 MG TABLET PO SCH (20:24)
--- NOTE | 2016-10-21 20:28 | PDOC ---
Exam Dane Demential Exam: Dane Note: Please also refer to the separate dictated note~for this date of service dictated separately.~Patient seen individually. Discussed the patient with Nursing staff reviewed the chart.~Reviewed interim history and current functioning. Reviewed vital signs,~Labs/ Radiology~and current medications noted below. Continue current treatment with the changes noted in the dictated addendum note Assessment: Vital Signs: Vital Signs Date Time Temp Pulse Resp B/P (MAP) Pulse Ox O2 Delivery O2 Flow Rate FiO2 10/21/16 17:02 97.0 78 18 139/66 (90) 99 10/19/16 06:32 Room Air I&O Intake and Output 10/21/16 07:00 Intake Total 1140 ml Balance 1140 ml Intake Oral 1140 ml # Voids 2 Current Medications: Meds: Current Medications Lorazepam (Ativan) 2 mg 1X ONCE IM Last administered on 10/18/16 20:13; Start 10/18/16 at 20:00; Stop 10/18/16 at 20:01; Status DC Haloperidol Lactate (Haldol) 5 mg 1X ONCE IM Last administered on 10/18/16 20 :13; Start 10/18/16 at 20:00; Stop 10/18/16 at 20:02; Status DC Lorazepam (Ativan) 2 mg 1X ONCE IV ; Start 10/18/16 at 20:00; Stop 10/18/16 at 20:02; Status DC Haloperidol Lactate (Haldol) 5 mg 1X ONCE IM ; Start 10/18/16 at 20:00; Stop at 20:02; Status DC Buspirone HCl (Buspar) 5 mg QID PO Last administered on 10/21/16 20:24; Start 10/19/16 at 09:00 Divalproex Sodium (Depakote Sprinkles) 125 mg [id number] PO Last administered on 20:24; Start 10/19/16 at 09:00 Lorazepam (Ativan) 0.5 mg PRN TID PRN PO ANXIETY / AGITATION; Start 10/18/16 at 23:00 Olanzapine (ZyPREXA ZYDIS) 2.5 mg PRN Q4HRS PRN PO PSYCHOSIS Last administered on 10/20/16 11:11; Start 10/18/16 at 23:00 Quetiapine Fumarate (SEROquel) 25 mg QID PO Last administered on 10/21/16 16: 56; Start 10/19/16 at 09:00 Sertraline HCl (Zoloft) 75 mg DAILY PO Last administered on 10/21/16 09:25; Start 10/19/16 at 09:00 Trazodone HCl (Desyrel) 25 mg PRN QHS PRN PO INSOMNIA; Start 10/18/16 at 23:00 Melatonin 3 mg QHS PO Last administered on 10/21/16 20:24; Start 10/18/16 at 23:00 Pneumococcal Polyvalent Vaccine (Pneumovax 23) 0.5 ml ONCE ONCE VAX IM ; Start 10/19/16 at 09:00; Stop 10/19/16 at 09:02; Status DC Acetaminophen (Tylenol) 650 mg PRN Q6HRS PRN PO PAIN / TEMP; Start 10/19/16 at 06:15 Aspirin (Children'S Aspirin) 81 mg DAILY PO Last administered on 10/21/16 09: 24; Start 10/19/16 at 09:00 Cetirizine HCl (ZyrTEC) 10 mg DAILY PO Last administered on 10/21/16 09:25; Start 10/19/16 at 09:00 Cyanocobalamin (Vitamin B-12) 250 mcg DAILY PO Last administered on 10/21/16 09:24; Start 10/19/16 at 09:00 Diclofenac Sodium (Voltaren) 1 beck BID TP Last administered on 10/21/16 09:26 ; Start 10/19/16 at 09:00 Al Hydroxide/Mg Hydroxide (Mylanta Plus Xs) 15 ml PRN AFTMEALHC PRN PO DYSPEPSIA; Start 10/19/16 at 06:15 Multi-Ingredient Ointment (Analgesic [place]) 1 beck PRN QID PRN TP MUSCLE PAIN; Start 10/19/16 at 06:15 Metoprolol Succinate (Toprol Xl) 25 mg BID PO Last administered on 10/20/16 08 :37; Start 10/19/16 at 09:00; Stop 10/20/16 at 16:35; Status DC Phenytoin Sodium (Dilantin) 100 mg BID PO Last administered on 10/21/16 20:24 ; Start 10/19/16 at 09:00 Potassium Chloride (Klor-Con) 20 meq BID PO Last administered on 10/21/16 20: 24; Start 10/19/16 at 09:00 Vitamin D (Vitamin D3) 5,000 unit DAILY PO Last administered on 10/21/16 09:25 ; Start 10/19/16 at 09:00 Artificial Tears (Artificial Tears) 1 drop TID OU Last administered on 20:31; Start 10/19/16 at 09:00 Glucosamine Sulfate (Glucosamine) 1,000 mg DAILY PO Last administered on 09:24; Start 10/19/16 at 09:00 Magnesium Hydroxide (Milk Of Magnesia) 2,400 mg PRN QHS PRN PO CONSTIPATION; Start 10/19/16 at 07:15 Artificial Tears (Artificial Tears) 1 drop PRN Q15MIN PRN OU DRY EYE; Start 02/23 at 20:00 Active Scripts Active Reported Buspirone Hcl 5 Mg Tablet 5 Mg PO QID Trazodone Hcl 50 Mg Tablet 25 Mg PO PRN QHS PRN Zoloft (Sertraline Hcl) 50 Mg Tablet 75 Mg PO DAILY Klor-Con M20 (Potassium Chloride) 20 Meq Tab.er.prt 20 Meq PO BID Artificial Tears Eye Drops (Dextran 70/Hypromellose) 15 Ml Drops 1 Drp OU TID Olanzapine Odt (Olanzapine) 5 Mg Tab.rapdis 2.5 Mg PO PRN Q4HRS PRN Analgesic [place] (Methyl Salicylate/Menthol) 28 Gm Oint...g. 1 Beck TP PRN QID PRN Maalox Maximum Strength Susp (Mag Hydrox/Al Hydrox/Simeth) 355 Ml Oral.susp 15 Ml PO PRN AFTMEALHC PRN Milk Of Magnesia (Magnesium Hydroxide) 2,400 Mg/10 Ml Oral.susp 2,400 Mg PO PRN QHS PRN Depakote Sprinkle (Divalproex Sodium) 125 Mg Cap.sprink 125 Mg PO [id number] Vitamin B-12 (Cyanocobalamin (Vitamin B-12)) 1,000 Mcg Tablet 250 Mcg PO DAILY Vitamin D3 (Cholecalciferol (Vitamin D3)) 5,000 Unit Tablet 5,000 Unit PO WEEKLY Cetirizine Hcl 10 Mg Tablet 10 Mg PO DAILY Tylenol (Acetaminophen) 325 Mg Tablet 650 Mg PO PRN Q6HRS PRN Seroquel (Quetiapine Fumarate) 25 Mg Tablet 25 Mg PO QID Voltaren (Diclofenac Sodium) 100 Gm Gel..gram. 1 Beck TP BID Lorazepam 0.5 Mg Tablet 0.5 Mg PO TID PRN Melatin (Melatonin) 3 Mg Tablet 3 Mg PO QHS Metoprolol Succinate ( Xl ) (Metoprolol Succinate) 25 Mg Tab.er.24h 25 Mg PO BID Dilantin (Phenytoin Sodium Extended) 100 Mg Capsule 100 Mg PO BID Glucosamine Sulfate (Glucosamine Sulfate 2KCL) 1,000 Mg Tablet 1,000 Mg PO DAILY Aspirin 81 Mg Tab.chew 81 Mg PO DAILY Diagnosis: Problems: (1) Dementia with behavioral disturbance (2) Anxiety disorder (3) Dementia in Alzheimer's disease with delusions (4) Dementia in Alzheimer's disease with depression (5) Dementia, vascular, with delusions (6) Dementia, vascular, with depression (7) Impulse control disorder NAKIA KO MD Oct 21, 2016 20:28
[2016-10-22 05:38] VITALS: BP 151/62
[2016-10-22] MEDS: DICLOFENAC SODIUM 1% TOPICAL GEL 100GM TUBE. TP SCH ×2 (09:00→19:50)
[2016-10-22] MEDS: PHENYTOIN SODIUM EXTENDED 100 MG CAPSULE PO SCH ×2 (09:08→19:50)
[2016-10-22] MEDS: CYANOCOBALAMIN (VITAMIN B-12) 250 MCG TABLET PO SCH (09:08)
[2016-10-22] MEDS: ASPIRIN 81 MG TAB.CHEW PO SCH (09:09)
[2016-10-22] MEDS: GLUCOSAMINE 500 MG CAPSULE PO SCH (09:09)
[2016-10-22] MEDS: busPIRone 5 MG TABLET. PO SCH ×4 (09:09→19:50)
[2016-10-22] MEDS: QUEtiapine 25 MG TABLET. PO SCH ×4 (09:09→19:50)
[2016-10-22] MEDS: POTASSIUM CHLORIDE 20 MEQ TABLET.ER. PO SCH ×2 (09:09→19:50)
[2016-10-22] MEDS: DIVALPROEX 125 MG CAP.SPRINK PO SCH ×4 (09:09→19:49)
[2016-10-22] MEDS: CHOLECALCIFEROL (VITAMIN D3) 1,000 UNIT TABLET PO SCH (09:09)
[2016-10-22] MEDS: CETIRIZINE HCL 10 MG TABLET PO SCH (09:09)
[2016-10-22] MEDS: POLYVINYL ALCOHOL 1.4% OPHTH SOLUTION 15ML BOTTLE. OU SCH ×3 (09:10→19:48)
[2016-10-22] MEDS: SERTRALINE 50 MG TABLET. PO SCH (09:10)
--- NOTE | 2016-10-22 10:29 | PN ---
DATE: 10/20/2016 This is a late entry for 10/20/2016 and covers elements not covered in my initial note of 10/20/2016. I met with the patient evening of 10/20/2016. She slept 7 hours previous evening, gets anxious, somewhat delusional, needed Zyprexa at 11:15, hand-wringing, anxious, repeatedly asking where is Ngozi who is reportedly her daughter, who is an alcoholic. At times, resistive to medications, takes it later. She is quite friendly with another demented patient on the unit. REVIEW OF SYSTEMS: No CV, , pulmonary, eye, ENT system symptoms on review. Reliability poor. MENTAL STATUS EXAM: Oriented to herself. Insight, judgment, recent and remote memory, attention, concentration, fund of knowledge poor, consistent with her diagnosis mentioned in my initial note. LABORATORY DATA: Reviewed. PLAN: Continue current psychotropics, reviewed drug contraction, risk/benefit ratio favors no further change at this time, may need to adjust Depakote once we get repeat level. Dilantin level is therapeutic. MAN Leandro KO MD DR: [email or web address]/luz JOB#: [id number] / [id number]
[2016-10-22] MEDS: LORazepam 0.5 MG TABLET PO PRN (10:58)
[2016-10-22 16:36] VITALS: BP 118/80
[2016-10-22] MEDS: MELATONIN 3 MG TABLET PO SCH (19:50)
--- NOTE | 2016-10-22 20:04 | PDOC ---
Exam Dane Demential Exam: Dane Note: Please also refer to the separate dictated note~for this date of service dictated separately.~Patient seen individually. Discussed the patient with Nursing staff reviewed the chart.~Reviewed interim history and current functioning. Reviewed vital signs,~Labs/ Radiology~and current medications noted below. Continue current treatment with the changes noted in the dictated addendum note Assessment: Vital Signs: Vital Signs Date Time Temp Pulse Resp B/P (MAP) Pulse Ox O2 Delivery O2 Flow Rate FiO2 10/22/16 16:36 98.8 89 22 118/80 (93) 99 10/22/16 05:38 Room Air I&O Intake and Output 10/22/16 07:00 Intake Total 980 ml Balance 980 ml Intake Oral 980 ml Current Medications: Meds: Current Medications Lorazepam (Ativan) 2 mg 1X ONCE IM Last administered on 10/18/16 20:13; Start 10/18/16 at 20:00; Stop 10/18/16 at 20:01; Status DC Haloperidol Lactate (Haldol) 5 mg 1X ONCE IM Last administered on 10/18/16 20 :13; Start 10/18/16 at 20:00; Stop 10/18/16 at 20:02; Status DC Lorazepam (Ativan) 2 mg 1X ONCE IV ; Start 10/18/16 at 20:00; Stop 10/18/16 at 20:02; Status DC Haloperidol Lactate (Haldol) 5 mg 1X ONCE IM ; Start 10/18/16 at 20:00; Stop at 20:02; Status DC Buspirone HCl (Buspar) 5 mg QID PO Last administered on 10/22/16 19:50; Start 10/19/16 at 09:00 Divalproex Sodium (Depakote Sprinkles) 125 mg [id number] PO Last administered on 17:07; Start 10/19/16 at 09:00; Stop 10/22/16 at 18:19; Status DC Lorazepam (Ativan) 0.5 mg PRN TID PRN PO ANXIETY / AGITATION Last administered on 10/22/16 10:58; Start 10/18/16 at 23:00 Olanzapine (ZyPREXA ZYDIS) 2.5 mg PRN Q4HRS PRN PO PSYCHOSIS Last administered on 10/22/16 10:02; Start 10/18/16 at 23:00 Quetiapine Fumarate (SEROquel) 25 mg QID PO Last administered on 10/22/16 19: 50; Start 10/19/16 at 09:00 Sertraline HCl (Zoloft) 75 mg DAILY PO Last administered on 10/22/16 09:10; Start 10/19/16 at 09:00 Trazodone HCl (Desyrel) 25 mg PRN QHS PRN PO INSOMNIA; Start 10/18/16 at 23:00 Melatonin 3 mg QHS PO Last administered on 10/22/16 19:50; Start 10/18/16 at 23:00 Pneumococcal Polyvalent Vaccine (Pneumovax 23) 0.5 ml ONCE ONCE VAX IM ; Start 10/19/16 at 09:00; Stop 10/19/16 at 09:02; Status DC Acetaminophen (Tylenol) 650 mg PRN Q6HRS PRN PO PAIN / TEMP; Start 10/19/16 at 06:15 Aspirin (Children'S Aspirin) 81 mg DAILY PO Last administered on 10/22/16 09: 09; Start 10/19/16 at 09:00 Cetirizine HCl (ZyrTEC) 10 mg DAILY PO Last administered on 10/22/16 09:09; Start 10/19/16 at 09:00 Cyanocobalamin (Vitamin B-12) 250 mcg DAILY PO Last administered on 10/22/16 09:08; Start 10/19/16 at 09:00 Diclofenac Sodium (Voltaren) 1 beck BID TP Last administered on 10/22/16 19:50 ; Start 10/19/16 at 09:00 Al Hydroxide/Mg Hydroxide (Mylanta Plus Xs) 15 ml PRN AFTMEALHC PRN PO DYSPEPSIA; Start 10/19/16 at 06:15 Multi-Ingredient Ointment (Analgesic [place]) 1 beck PRN QID PRN TP MUSCLE PAIN; Start 10/19/16 at 06:15 Metoprolol Succinate (Toprol Xl) 25 mg BID PO Last administered on 10/20/16 08 :37; Start 10/19/16 at 09:00; Stop 10/20/16 at 16:35; Status DC Phenytoin Sodium (Dilantin) 100 mg BID PO Last administered on 10/22/16 19:50 ; Start 10/19/16 at 09:00 Potassium Chloride (Klor-Con) 20 meq BID PO Last administered on 10/22/16 19: 50; Start 10/19/16 at 09:00 Vitamin D (Vitamin D3) 5,000 unit DAILY PO Last administered on 10/22/16 09:09 ; Start 10/19/16 at 09:00 Artificial Tears (Artificial Tears) 1 drop TID OU Last administered on 19:48; Start 10/19/16 at 09:00 Glucosamine Sulfate (Glucosamine) 1,000 mg DAILY PO Last administered on 09:09; Start 10/19/16 at 09:00 Magnesium Hydroxide (Milk Of Magnesia) 2,400 mg PRN QHS PRN PO CONSTIPATION; Start 10/19/16 at 07:15 Artificial Tears (Artificial Tears) 1 drop PRN Q15MIN PRN OU DRY EYE; Start 02/23 at 20:00 Divalproex Sodium (Depakote Sprinkles) 125 mg BID@1300,1700 PO ; Start 10/23/16 at 13:00 Divalproex Sodium (Depakote Sprinkles) 250 mg BID@0900,2100 PO Last administered on 10/22/16 19:49; Start 10/22/16 at 21:00 Active Scripts Active Reported Buspirone Hcl 5 Mg Tablet 5 Mg PO QID Trazodone Hcl 50 Mg Tablet 25 Mg PO PRN QHS PRN Zoloft (Sertraline Hcl) 50 Mg Tablet 75 Mg PO DAILY Klor-Con M20 (Potassium Chloride) 20 Meq Tab.er.prt 20 Meq PO BID Artificial Tears Eye Drops (Dextran 70/Hypromellose) 15 Ml Drops 1 Drp OU TID Olanzapine Odt (Olanzapine) 5 Mg Tab.rapdis 2.5 Mg PO PRN Q4HRS PRN Analgesic [place] (Methyl Salicylate/Menthol) 28 Gm Oint...g. 1 Beck TP PRN QID PRN Maalox Maximum Strength Susp (Mag Hydrox/Al Hydrox/Simeth) 355 Ml Oral.susp 15 Ml PO PRN AFTMEALHC PRN Milk Of Magnesia (Magnesium Hydroxide) 2,400 Mg/10 Ml Oral.susp 2,400 Mg PO PRN QHS PRN Depakote Sprinkle (Divalproex Sodium) 125 Mg Cap.sprink 125 Mg PO [id number] Vitamin B-12 (Cyanocobalamin (Vitamin B-12)) 1,000 Mcg Tablet 250 Mcg PO DAILY Vitamin D3 (Cholecalciferol (Vitamin D3)) 5,000 Unit Tablet 5,000 Unit PO WEEKLY Cetirizine Hcl 10 Mg Tablet 10 Mg PO DAILY Tylenol (Acetaminophen) 325 Mg Tablet 650 Mg PO PRN Q6HRS PRN Seroquel (Quetiapine Fumarate) 25 Mg Tablet 25 Mg PO QID Voltaren (Diclofenac Sodium) 100 Gm Gel..gram. 1 Beck TP BID Lorazepam 0.5 Mg Tablet 0.5 Mg PO TID PRN Melatin (Melatonin) 3 Mg Tablet 3 Mg PO QHS Metoprolol Succinate ( Xl ) (Metoprolol Succinate) 25 Mg Tab.er.24h 25 Mg PO BID Dilantin (Phenytoin Sodium Extended) 100 Mg Capsule 100 Mg PO BID Glucosamine Sulfate (Glucosamine Sulfate 2KCL) 1,000 Mg Tablet 1,000 Mg PO DAILY Aspirin 81 Mg Tab.chew 81 Mg PO DAILY Diagnosis: Problems: (1) Breakthrough seizure (2) Dementia with behavioral disturbance (3) Anxiety disorder (4) Dementia in Alzheimer's disease with delusions (5) Dementia in Alzheimer's disease with depression (6) Dementia, vascular, with delusions (7) Dementia, vascular, with depression (8) Impulse control disorder NAKIA KO MD Oct 22, 2016 20:04
[2016-10-23 06:34] VITALS: BP 151/64
[2016-10-23] MEDS: DIVALPROEX 125 MG CAP.SPRINK PO SCH ×4 (08:11→19:43)
[2016-10-23] MEDS: PHENYTOIN SODIUM EXTENDED 100 MG CAPSULE PO SCH ×2 (08:11→19:44)
[2016-10-23] MEDS: SERTRALINE 50 MG TABLET. PO SCH (08:11)
[2016-10-23] MEDS: POTASSIUM CHLORIDE 20 MEQ TABLET.ER. PO SCH ×2 (08:11→19:44)
[2016-10-23] MEDS: busPIRone 5 MG TABLET. PO SCH ×4 (08:12→19:43)
[2016-10-23] MEDS: CETIRIZINE HCL 10 MG TABLET PO SCH (08:12)
[2016-10-23] MEDS: QUEtiapine 25 MG TABLET. PO SCH ×4 (08:12→19:43)
[2016-10-23] MEDS: ASPIRIN 81 MG TAB.CHEW PO SCH (08:12)
[2016-10-23] MEDS: DICLOFENAC SODIUM 1% TOPICAL GEL 100GM TUBE. TP SCH ×2 (08:13→19:44)
[2016-10-23] MEDS: GLUCOSAMINE 500 MG CAPSULE PO SCH (08:14)
[2016-10-23] MEDS: CYANOCOBALAMIN (VITAMIN B-12) 250 MCG TABLET PO SCH (08:14)
[2016-10-23] MEDS: CHOLECALCIFEROL (VITAMIN D3) 1,000 UNIT TABLET PO SCH (08:14)
[2016-10-23] MEDS: POLYVINYL ALCOHOL 1.4% OPHTH SOLUTION 15ML BOTTLE. OU SCH ×3 (08:14→19:44)
--- NOTE | 2016-10-23 09:07 | PN ---
DATE: 10/21/2016 SUBJECTIVE: This is a late entry 10/21/2016, covers elements not covered in my initial note of 10/21/2016. Met with the patient evening of 10/21/2016. Overall per nursing report, the patient remains confused, but has had a relatively good day and not agitated and aggressive. REVIEW OF SYSTEMS: No CV, , pulmonary, eye, or ENT system symptoms on review. Reliability poor. MENTAL STATUS EXAM: Oriented to herself. Insight, judgment, recent and remote memory, attention, concentration, and fund of knowledge poor consistent with her diagnosis. She is pleasant and verbal with me. Quite appropriate, but certainly oblivious of her surroundings. LABORATORY DATA: Reviewed. IMPRESSION: Unchanged from initial note. PLAN: Continue psychotropics mentioned in my initial note. Review drug interactions and risk/benefit ratio favors no further change as of now, but may consider increasing Depakote depending mood lability resurfaces. NAKIA KO MD DR: [email or web address]/luz JOB#: [id number] / [id number]
[2016-10-23 16:39] VITALS: BP 116/71
[2016-10-23] MEDS: MELATONIN 3 MG TABLET PO SCH (19:44)
--- NOTE | 2016-10-23 20:04 | PDOC ---
Exam Dane Demential Exam: Dane Note: Please also refer to the separate dictated note~for this date of service dictated separately.~Patient seen individually. Discussed the patient with Nursing staff reviewed the chart.~Reviewed interim history and current functioning. Reviewed vital signs,~Labs/ Radiology~and current medications noted below. Continue current treatment with the changes noted in the dictated addendum note Assessment: Vital Signs: Vital Signs Date Time Temp Pulse Resp B/P (MAP) Pulse Ox O2 Delivery O2 Flow Rate FiO2 10/23/16 16:39 97.7 52 18 116/71 (86) 96 10/22/16 05:38 Room Air I&O Intake and Output 10/23/16 07:00 Intake Total 1060 ml Balance 1060 ml Intake Oral 1060 ml Current Medications: Meds: Current Medications Lorazepam (Ativan) 2 mg 1X ONCE IM Last administered on 10/18/16 20:13; Start 10/18/16 at 20:00; Stop 10/18/16 at 20:01; Status DC Haloperidol Lactate (Haldol) 5 mg 1X ONCE IM Last administered on 10/18/16 20 :13; Start 10/18/16 at 20:00; Stop 10/18/16 at 20:02; Status DC Lorazepam (Ativan) 2 mg 1X ONCE IV ; Start 10/18/16 at 20:00; Stop 10/18/16 at 20:02; Status DC Haloperidol Lactate (Haldol) 5 mg 1X ONCE IM ; Start 10/18/16 at 20:00; Stop at 20:02; Status DC Buspirone HCl (Buspar) 5 mg QID PO Last administered on 10/23/16 19:43; Start 10/19/16 at 09:00 Divalproex Sodium (Depakote Sprinkles) 125 mg [id number] PO Last administered on 17:07; Start 10/19/16 at 09:00; Stop 10/22/16 at 18:19; Status DC Lorazepam (Ativan) 0.5 mg PRN TID PRN PO ANXIETY / AGITATION Last administered on 10/22/16 10:58; Start 10/18/16 at 23:00 Olanzapine (ZyPREXA ZYDIS) 2.5 mg PRN Q4HRS PRN PO PSYCHOSIS Last administered on 10/23/16 09:58; Start 10/18/16 at 23:00 Quetiapine Fumarate (SEROquel) 25 mg QID PO Last administered on 10/23/16 17: 11; Start 10/19/16 at 09:00; Stop 10/23/16 at 18:39; Status DC Sertraline HCl (Zoloft) 75 mg DAILY PO Last administered on 10/23/16 08:11; Start 10/19/16 at 09:00 Trazodone HCl (Desyrel) 25 mg PRN QHS PRN PO INSOMNIA; Start 10/18/16 at 23:00 Melatonin 3 mg QHS PO Last administered on 10/23/16 19:44; Start 10/18/16 at 23:00 Pneumococcal Polyvalent Vaccine (Pneumovax 23) 0.5 ml ONCE ONCE VAX IM ; Start 10/19/16 at 09:00; Stop 10/19/16 at 09:02; Status DC Acetaminophen (Tylenol) 650 mg PRN Q6HRS PRN PO PAIN / TEMP; Start 10/19/16 at 06:15 Aspirin (Children'S Aspirin) 81 mg DAILY PO Last administered on 10/23/16 08: 12; Start 10/19/16 at 09:00 Cetirizine HCl (ZyrTEC) 10 mg DAILY PO Last administered on 10/23/16 08:12; Start 10/19/16 at 09:00 Cyanocobalamin (Vitamin B-12) 250 mcg DAILY PO Last administered on 10/22/16 09:08; Start 10/19/16 at 09:00 Diclofenac Sodium (Voltaren) 1 beck BID TP Last administered on 10/23/16 08:13 ; Start 10/19/16 at 09:00 Al Hydroxide/Mg Hydroxide (Mylanta Plus Xs) 15 ml PRN AFTMEALHC PRN PO DYSPEPSIA; Start 10/19/16 at 06:15 Multi-Ingredient Ointment (Analgesic [place]) 1 beck PRN QID PRN TP MUSCLE PAIN; Start 10/19/16 at 06:15 Metoprolol Succinate (Toprol Xl) 25 mg BID PO Last administered on 10/20/16 08 :37; Start 10/19/16 at 09:00; Stop 10/20/16 at 16:35; Status DC Phenytoin Sodium (Dilantin) 100 mg BID PO Last administered on 10/23/16 19:44 ; Start 10/19/16 at 09:00 Potassium Chloride (Klor-Con) 20 meq BID PO Last administered on 10/23/16 19: 44; Start 10/19/16 at 09:00 Vitamin D (Vitamin D3) 5,000 unit DAILY PO Last administered on 10/22/16 09:09 ; Start 10/19/16 at 09:00 Artificial Tears (Artificial Tears) 1 drop TID OU Last administered on 08:14; Start 10/19/16 at 09:00 Glucosamine Sulfate (Glucosamine) 1,000 mg DAILY PO Last administered on 09:09; Start 10/19/16 at 09:00 Magnesium Hydroxide (Milk Of Magnesia) 2,400 mg PRN QHS PRN PO CONSTIPATION; Start 10/19/16 at 07:15 Artificial Tears (Artificial Tears) 1 drop PRN Q15MIN PRN OU DRY EYE; Start 02/23 at 20:00 Divalproex Sodium (Depakote Sprinkles) 125 mg BID@1300,1700 PO Last administered on 10/23/16 17:11; Start 10/23/16 at 13:00 Divalproex Sodium (Depakote Sprinkles) 250 mg BID@0900,2100 PO Last administered on 10/23/16 19:43; Start 10/22/16 at 21:00 Quetiapine Fumarate (SEROquel) 37.5 mg BID@0900,1800 PO ; Start 10/24/16 at 09: 00 Quetiapine Fumarate (SEROquel) 25 mg BID@1400,2100 PO Last administered on 10/23 19:43; Start 10/23/16 at 21:00 Active Scripts Active Reported Buspirone Hcl 5 Mg Tablet 5 Mg PO QID Trazodone Hcl 50 Mg Tablet 25 Mg PO PRN QHS PRN Zoloft (Sertraline Hcl) 50 Mg Tablet 75 Mg PO DAILY Klor-Con M20 (Potassium Chloride) 20 Meq Tab.er.prt 20 Meq PO BID Artificial Tears Eye Drops (Dextran 70/Hypromellose) 15 Ml Drops 1 Drp OU TID Olanzapine Odt (Olanzapine) 5 Mg Tab.rapdis 2.5 Mg PO PRN Q4HRS PRN Analgesic [place] (Methyl Salicylate/Menthol) 28 Gm Oint...g. 1 Beck TP PRN QID PRN Maalox Maximum Strength Susp (Mag Hydrox/Al Hydrox/Simeth) 355 Ml Oral.susp 15 Ml PO PRN AFTMEALHC PRN Milk Of Magnesia (Magnesium Hydroxide) 2,400 Mg/10 Ml Oral.susp 2,400 Mg PO PRN QHS PRN Depakote Sprinkle (Divalproex Sodium) 125 Mg Cap.sprink 125 Mg PO [id number] Vitamin B-12 (Cyanocobalamin (Vitamin B-12)) 1,000 Mcg Tablet 250 Mcg PO DAILY Vitamin D3 (Cholecalciferol (Vitamin D3)) 5,000 Unit Tablet 5,000 Unit PO WEEKLY Cetirizine Hcl 10 Mg Tablet 10 Mg PO DAILY Tylenol (Acetaminophen) 325 Mg Tablet 650 Mg PO PRN Q6HRS PRN Seroquel (Quetiapine Fumarate) 25 Mg Tablet 25 Mg PO QID Voltaren (Diclofenac Sodium) 100 Gm Gel..gram. 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
[2016-10-24 06:01] VITALS: BP 145/85
[2016-10-24] MEDS: POLYVINYL ALCOHOL 1.4% OPHTH SOLUTION 15ML BOTTLE. OU SCH ×3 (08:08→20:18)
[2016-10-24] MEDS: DIVALPROEX 125 MG CAP.SPRINK PO SCH ×4 (08:08→20:18)
[2016-10-24] MEDS: SERTRALINE 50 MG TABLET. PO SCH (08:08)
[2016-10-24] MEDS: DICLOFENAC SODIUM 1% TOPICAL GEL 100GM TUBE. TP SCH ×2 (08:08→20:19)
[2016-10-24] MEDS: POTASSIUM CHLORIDE 20 MEQ TABLET.ER. PO SCH ×2 (08:09→20:18)
[2016-10-24] MEDS: busPIRone 5 MG TABLET. PO SCH ×4 (08:09→20:18)
[2016-10-24] MEDS: CETIRIZINE HCL 10 MG TABLET PO SCH (08:09)
[2016-10-24] MEDS: GLUCOSAMINE 500 MG CAPSULE PO SCH (08:10)
[2016-10-24] MEDS: CYANOCOBALAMIN (VITAMIN B-12) 250 MCG TABLET PO SCH (08:10)
[2016-10-24] MEDS: ASPIRIN 81 MG TAB.CHEW PO SCH (08:10)
[2016-10-24] MEDS: PHENYTOIN SODIUM EXTENDED 100 MG CAPSULE PO SCH ×2 (08:10→20:19)
[2016-10-24] MEDS: CHOLECALCIFEROL (VITAMIN D3) 1,000 UNIT TABLET PO SCH (08:10)
[2016-10-24] MEDS: QUEtiapine 25 MG TABLET. PO SCH ×4 (08:11→20:18)
--- NOTE | 2016-10-24 14:25 | PN ---
DATE: 10/22/2016 PSYCHIATRIC PROGRESS NOTE This is a late entry 10/22/2016, covers elements not covered in my initial note of 10/22/2016. SUBJECTIVE: I met with the patient evening of 10/22/2016. She slept 8-1/2 hours previous evening. Per nursing report, she has had a "bad day." She took a pudding and splashed it on the glass partition around the nursing station, extremely labile, banging her head on the window, agitated, psychotic, tried to jump out of the window, scratching staff, impulsive, aggressive, disruptive. REVIEW OF SYSTEMS: As I met with her; no CV, , eye, ENT or pulmonary system symptoms on review. Reliability poor. She is pleasant, smiling. MENTAL STATUS EXAM: Insight, judgment, recent and remote memory, attention, concentration, fund of knowledge poor, consistent with her diagnosis. LABORATORY DATA: Valproic acid level is subtherapeutic. PLAN: Increase the Depakote Sprinkles from 125 mg 4 times a day to 250 mg at 9:00 a.m. and 9 p.m., 125 mg at 1 p.m. and 5 p.m. Check CBC, CMP, valproic acid level, ammonia level in 3 days. Maintain Zoloft 75 mg a day, Seroquel 25 mg four times a day, BuSpar 5 mg 4 times a day and we may need to increase this. Continue trazodone at bedtime p.r.n., Ativan p.r.n., Zyprexa p.r.n., melatonin 3 mg at bedtime. MAN Leandro KO MD DR: [email or web address]/luz JOB#: [id number] / [id number]
[2016-10-24 16:23] VITALS: BP 135/71
--- NOTE | 2016-10-24 20:02 | PDOC ---
Exam Dane Demential Exam: Dane Note: Please also refer to the separate dictated note~for this date of service dictated separately.~Patient seen individually. Discussed the patient with Nursing staff reviewed the chart.~Reviewed interim history and current functioning. Reviewed vital signs,~Labs/ Radiology~and current medications noted below. Continue current treatment with the changes noted in the dictated addendum note Assessment: Vital Signs: Vital Signs Date Time Temp Pulse Resp B/P (MAP) Pulse Ox O2 Delivery O2 Flow Rate FiO2 10/24/16 16:23 98.2 72 18 135/71 (92) 99 10/22/16 05:38 Room Air I&O Intake and Output 10/24/16 07:00 Intake Total 960 ml Balance 960 ml Intake Oral 960 ml # Voids 1 Current Medications: Meds: Current Medications Lorazepam (Ativan) 2 mg 1X ONCE IM Last administered on 10/18/16 20:13; Start 10/18/16 at 20:00; Stop 10/18/16 at 20:01; Status DC Haloperidol Lactate (Haldol) 5 mg 1X ONCE IM Last administered on 10/18/16 20 :13; Start 10/18/16 at 20:00; Stop 10/18/16 at 20:02; Status DC Lorazepam (Ativan) 2 mg 1X ONCE IV ; Start 10/18/16 at 20:00; Stop 10/18/16 at 20:02; Status DC Haloperidol Lactate (Haldol) 5 mg 1X ONCE IM ; Start 10/18/16 at 20:00; Stop at 20:02; Status DC Buspirone HCl (Buspar) 5 mg QID PO Last administered on 10/24/16 17:03; Start 10/19/16 at 09:00 Divalproex Sodium (Depakote Sprinkles) 125 mg [id number] PO Last administered on 17:07; Start 10/19/16 at 09:00; Stop 10/22/16 at 18:19; Status DC Lorazepam (Ativan) 0.5 mg PRN TID PRN PO ANXIETY / AGITATION Last administered on 10/22/16 10:58; Start 10/18/16 at 23:00 Olanzapine (ZyPREXA ZYDIS) 2.5 mg PRN Q4HRS PRN PO PSYCHOSIS Last administered on 10/24/16 12:10; Start 10/18/16 at 23:00 Quetiapine Fumarate (SEROquel) 25 mg QID PO Last administered on 10/23/16 17: 11; Start 10/19/16 at 09:00; Stop 10/23/16 at 18:39; Status DC Sertraline HCl (Zoloft) 75 mg DAILY PO Last administered on 10/24/16 08:08; Start 10/19/16 at 09:00 Trazodone HCl (Desyrel) 25 mg PRN QHS PRN PO INSOMNIA; Start 10/18/16 at 23:00 Melatonin 3 mg QHS PO Last administered on 10/23/16 19:44; Start 10/18/16 at 23:00 Pneumococcal Polyvalent Vaccine (Pneumovax 23) 0.5 ml ONCE ONCE VAX IM ; Start 10/19/16 at 09:00; Stop 10/19/16 at 09:02; Status DC Acetaminophen (Tylenol) 650 mg PRN Q6HRS PRN PO PAIN / TEMP; Start 10/19/16 at 06:15 Aspirin (Children'S Aspirin) 81 mg DAILY PO Last administered on 10/24/16 08: 10; Start 10/19/16 at 09:00 Cetirizine HCl (ZyrTEC) 10 mg DAILY PO Last administered on 10/24/16 08:09; Start 10/19/16 at 09:00 Cyanocobalamin (Vitamin B-12) 250 mcg DAILY PO Last administered on 10/24/16 08:10; Start 10/19/16 at 09:00 Diclofenac Sodium (Voltaren) 1 beck BID TP Last administered on 10/24/16 08:08 ; Start 10/19/16 at 09:00 Al Hydroxide/Mg Hydroxide (Mylanta Plus Xs) 15 ml PRN AFTMEALHC PRN PO DYSPEPSIA; Start 10/19/16 at 06:15 Multi-Ingredient Ointment (Analgesic [place]) 1 beck PRN QID PRN TP MUSCLE PAIN; Start 10/19/16 at 06:15 Metoprolol Succinate (Toprol Xl) 25 mg BID PO Last administered on 10/20/16 08 :37; Start 10/19/16 at 09:00; Stop 10/20/16 at 16:35; Status DC Phenytoin Sodium (Dilantin) 100 mg BID PO Last administered on 10/24/16 08:10 ; Start 10/19/16 at 09:00 Potassium Chloride (Klor-Con) 20 meq BID PO Last administered on 10/24/16 08: 09; Start 10/19/16 at 09:00 Vitamin D (Vitamin D3) 5,000 unit DAILY PO Last administered on 10/24/16 08:10 ; Start 10/19/16 at 09:00 Artificial Tears (Artificial Tears) 1 drop TID OU Last administered on 14:51; Start 10/19/16 at 09:00 Glucosamine Sulfate (Glucosamine) 1,000 mg DAILY PO Last administered on 08:10; Start 10/19/16 at 09:00 Magnesium Hydroxide (Milk Of Magnesia) 2,400 mg PRN QHS PRN PO CONSTIPATION; Start 10/19/16 at 07:15 Artificial Tears (Artificial Tears) 1 drop PRN Q15MIN PRN OU DRY EYE; Start 02/23 at 20:00 Divalproex Sodium (Depakote Sprinkles) 125 mg BID@1300,1700 PO Last administered on 10/24/16 17:03; Start 10/23/16 at 13:00 Divalproex Sodium (Depakote Sprinkles) 250 mg BID@0900,2100 PO Last administered on 10/24/16 08:08; Start 10/22/16 at 21:00 Quetiapine Fumarate (SEROquel) 37.5 mg BID@0900,1800 PO Last administered on 17:04; Start 10/24/16 at 09:00 Quetiapine Fumarate (SEROquel) 25 mg BID@1400,2100 PO Last administered on 10/24 12:09; Start 10/23/16 at 21:00 Active Scripts Active Reported Buspirone Hcl 5 Mg Tablet 5 Mg PO QID Trazodone Hcl 50 Mg Tablet 25 Mg PO PRN QHS PRN Zoloft (Sertraline Hcl) 50 Mg Tablet 75 Mg PO DAILY Klor-Con M20 (Potassium Chloride) 20 Meq Tab.er.prt 20 Meq PO BID Artificial Tears Eye Drops (Dextran 70/Hypromellose) 15 Ml Drops 1 Drp OU TID Olanzapine Odt (Olanzapine) 5 Mg Tab.rapdis 2.5 Mg PO PRN Q4HRS PRN Analgesic [place] (Methyl Salicylate/Menthol) 28 Gm Oint...g. 1 Beck TP PRN QID PRN Maalox Maximum Strength Susp (Mag Hydrox/Al Hydrox/Simeth) 355 Ml Oral.susp 15 Ml PO PRN AFTMEALHC PRN Milk Of Magnesia (Magnesium Hydroxide) 2,400 Mg/10 Ml Oral.susp 2,400 Mg PO PRN QHS PRN Depakote Sprinkle (Divalproex Sodium) 125 Mg Cap.sprink 125 Mg PO [id number] Vitamin B-12 (Cyanocobalamin (Vitamin B-12)) 1,000 Mcg Tablet 250 Mcg PO DAILY Vitamin D3 (Cholecalciferol (Vitamin D3)) 5,000 Unit Tablet 5,000 Unit PO WEEKLY Cetirizine Hcl 10 Mg Tablet 10 Mg PO DAILY Tylenol (Acetaminophen) 325 Mg Tablet 650 Mg PO PRN Q6HRS PRN Seroquel (Quetiapine Fumarate) 25 Mg Tablet 25 Mg PO QID Voltaren (Diclofenac Sodium) 100 Gm Gel..gram. 1 Beck TP BID Lorazepam 0.5 Mg Tablet 0.5 Mg PO TID PRN Melatin (Melatonin) 3 Mg Tablet 3 Mg PO QHS Metoprolol Succinate ( Xl ) (Metoprolol Succinate) 25 Mg Tab.er.24h 25 Mg PO BID Dilantin (Phenytoin Sodium Extended) 100 Mg Capsule 100 Mg PO BID Glucosamine Sulfate (Glucosamine Sulfate 2KCL) 1,000 Mg Tablet 1,000 Mg PO DAILY Aspirin 81 Mg Tab.chew 81 Mg PO DAILY Diagnosis: Problems: (1) Dementia with behavioral disturbance (2) Anxiety disorder (3) Dementia in Alzheimer's disease with delusions (4) Dementia in Alzheimer's disease with depression (5) Dementia, vascular, with delusions (6) Dementia, vascular, with depression (7) Impulse control disorder NAKIA KO MD Oct 24, 2016 20:02
[2016-10-24] MEDS: MELATONIN 3 MG TABLET PO SCH (20:18)
--- NOTE | 2016-10-25 00:05 | PN ---
DATE: 10/23/2016 This is a late entry for 10/23/2016 and covers elements not covered in my initial note of 10/23/2016. I met with the patient evening of 10/23/2016. The patient has had a very difficult day, agitated, takes medications only with meals, banging the doors, trying to get out and jump out of the window, resistive with medications. REVIEW OF SYSTEMS: No CV, , pulmonary, eye, ENT system symptoms on review. Reliability poor. MENTAL STATUS EXAM: Oriented to herself. Insight, judgment, recent and remote memory, attention, concentration, fund of knowledge poor, consistent with her diagnosis mentioned in my initial note. PLAN: Continue current psychotropics, Seroquel is 25 mg 4 times a day, increase to 37.5 mg twice a day, 25 mg twice a day. Maintain Depakote, Zoloft, BuSpar, melatonin, trazodone, Ativan p.r.n., Zyprexa p.r.n. Check labs, valproic acid level on 10/25/2016. We reviewed drug interactions, risk/benefit ratio favors no further change as of now. NAKIA KO MD DR: [email or web address]/luz JOB#: [id number] / [id number]
[2016-10-25 06:20] VITALS: BP 126/57
[2016-10-25 06:55] LABS: ALBUMIN 2.9 g/dL (3.4-5.0); ALBUMIN/GLOBULIN RATIO 1.1 (1.0-1.7); ALK PHOS 108 U/L (46-116); ALT (SGPT) 21 U/L (14-59); ANION GAP 2 (6-14); AST (SGOT) 17 U/L (15-37); BASO % 1 % (0-3); BLOOD UREA NITROGEN 13 mg/dL (7-20); BUN/CREATININE RATIO 16 (6-20); CARBON DIOXIDE 31 mmol/L (21-32); CHLORIDE 110 mmol/L (98-107); CREATININE 0.8 mg/dL (0.6-1.0); EOS # 0.2 x10^3/uL (0.0-0.7); EOS % 6 % (0-3); GFR 68.2; GLUCOSE 88 mg/dL (70-99); HEMATOCRIT 30.8 % (36.0-47.0); HEMOGLOBIN 10.2 g/dL (12.0-15.5); LYMPH # 1.2 x10^3/uL (1.0-4.8); LYMPH % 29 % (24-48); MEAN CORPUSCULAR HEMOGLOBIN 31 pg (25-35); MEAN CORPUSCULAR HGB CONC 33 g/dL (31-37); MEAN CORPUSCULAR VOLUME 93 fL (79-100); MONO # 0.5 x10^3/uL (0.0-1.1); MONO % 11 % (0-9); NEUT # 2.1 x10^3uL (1.8-7.7); NEUT % 52 % (31-73); PLATELET COUNT 154 x10^3/uL (140-400); POTASSIUM 4.4 mmol/L (3.5-5.1); RED CELL DISTRIBUTION WIDTH 14.8 % (11.5-14.5); SODIUM 143 mmol/L (136-145); TOTAL BILIRUBIN 0.3 mg/dL (0.2-1.0); TOTAL PROTEIN 5.6 g/dL (6.4-8.2); VAL ACID 28 mcg/mL (50-100)
[2016-10-25] MEDS: busPIRone 5 MG TABLET. PO SCH ×4 (07:26→19:44)
[2016-10-25] MEDS: ASPIRIN 81 MG TAB.CHEW PO SCH (07:27)
[2016-10-25] MEDS: CETIRIZINE HCL 10 MG TABLET PO SCH (07:27)
[2016-10-25] MEDS: DIVALPROEX 125 MG CAP.SPRINK PO SCH ×4 (07:27→19:44)
[2016-10-25] MEDS: PHENYTOIN SODIUM EXTENDED 100 MG CAPSULE PO SCH ×2 (07:27→19:44)
[2016-10-25] MEDS: SERTRALINE 50 MG TABLET. PO SCH (07:28)
[2016-10-25] MEDS: QUEtiapine 25 MG TABLET. PO SCH ×4 (07:28→19:44)
[2016-10-25] MEDS: POTASSIUM CHLORIDE 20 MEQ TABLET.ER. PO SCH ×2 (07:29→19:43)
[2016-10-25] MEDS: POLYVINYL ALCOHOL 1.4% OPHTH SOLUTION 15ML BOTTLE. OU SCH ×3 (07:29→19:48)
[2016-10-25] MEDS: DICLOFENAC SODIUM 1% TOPICAL GEL 100GM TUBE. TP SCH ×2 (07:30→21:00)
[2016-10-25] MEDS: CHOLECALCIFEROL (VITAMIN D3) 1,000 UNIT TABLET PO SCH (07:30)
[2016-10-25] MEDS: CYANOCOBALAMIN (VITAMIN B-12) 250 MCG TABLET PO SCH (07:30)
[2016-10-25] MEDS: GLUCOSAMINE 500 MG CAPSULE PO SCH (07:30)
[2016-10-25 16:50] VITALS: BP 104/53
[2016-10-25] MEDS: MELATONIN 3 MG TABLET PO SCH (19:44)
--- NOTE | 2016-10-25 20:08 | PDOC ---
Exam Dane Demential Exam: Dane Note: Please also refer to the separate dictated note~for this date of service dictated separately.~Patient seen individually. Discussed the patient with Nursing staff reviewed the chart.~Reviewed interim history and current functioning. Reviewed vital signs,~Labs/ Radiology~and current medications noted below. Continue current treatment with the changes noted in the dictated addendum note Assessment: Vital Signs: Vital Signs Date Time Temp Pulse Resp B/P (MAP) Pulse Ox O2 Delivery O2 Flow Rate FiO2 10/25/16 16:50 97.6 76 20 104/53 (70) 96 10/22/16 05:38 Room Air I&O Intake and Output 10/25/16 07:00 Intake Total 1320 ml Balance 1320 ml Intake Oral 1320 ml # Voids 1 # Bowel Movements 1 Labs: Laboratory Tests Test 10/25/16 06:30 White Blood Count 4.0 x10^3/uL (4.0-11.0) Red Blood Count 3.30 x10^6/uL (3.50-5.40) L Hemoglobin 10.2 g/dL (12.0-15.5) L Hematocrit 30.8 % (36.0-47.0) L Mean Corpuscular Volume 93 fL (79-100) Mean Corpuscular Hemoglobin 31 pg (25-35) Mean Corpuscular Hemoglobin Concent 33 g/dL (31-37) Red Cell Distribution Width 14.8 % (11.5-14.5) H Platelet Count 154 x10^3/uL (140-400) Neutrophils (%) (Auto) 52 % (31-73) Lymphocytes (%) (Auto) 29 % (24-48) Monocytes (%) (Auto) 11 % (0-9) H Eosinophils (%) (Auto) 6 % (0-3) H Basophils (%) (Auto) 1 % (0-3) Neutrophils # (Auto) 2.1 x10^3uL (1.8-7.7) Lymphocytes # (Auto) 1.2 x10^3/uL (1.0-4.8) Monocytes # (Auto) 0.5 x10^3/uL (0.0-1.1) Eosinophils # (Auto) 0.2 x10^3/uL (0.0-0.7) Basophils # (Auto) 0.0 x10^3/uL (0.0-0.2) Sodium Level 143 mmol/L (136-145) Potassium Level 4.4 mmol/L (3.5-5.1) Chloride Level 110 mmol/L (98-107) H Carbon Dioxide Level 31 mmol/L (21-32) Anion Gap 2 (6-14) L Blood Urea Nitrogen 13 mg/dL (7-20) Creatinine 0.8 mg/dL (0.6-1.0) Estimated GFR (Cockcroft-Gault) 68.2 BUN/Creatinine Ratio 16 (6-20) Glucose Level 88 mg/dL (70-99) Calcium Level 8.0 mg/dL (8.5-10.1) L Total Bilirubin 0.3 mg/dL (0.2-1.0) Aspartate Amino Transferase (AST) 17 U/L (15-37) Alanine Aminotransferase (ALT) 21 U/L (14-59) Alkaline Phosphatase 108 U/L (46-116) Ammonia 17 mcmol/L (11-34) Total Protein 5.6 g/dL (6.4-8.2) L Albumin 2.9 g/dL (3.4-5.0) L Albumin/Globulin Ratio 1.1 (1.0-1.7) Valproic Acid Level 28 mcg/mL (50-100) L Valproic Acid Last Dose Date 10/24/2016 Valproic Acid Last Dose Time 2100 Current Medications: Meds: Current Medications Lorazepam (Ativan) 2 mg 1X ONCE IM Last administered on 10/18/16 20:13; Start 10/18/16 at 20:00; Stop 10/18/16 at 20:01; Status DC Haloperidol Lactate (Haldol) 5 mg 1X ONCE IM Last administered on 10/18/16 20 :13; Start 10/18/16 at 20:00; Stop 10/18/16 at 20:02; Status DC Lorazepam (Ativan) 2 mg 1X ONCE IV ; Start 10/18/16 at 20:00; Stop 10/18/16 at 20:02; Status DC Haloperidol Lactate (Haldol) 5 mg 1X ONCE IM ; Start 10/18/16 at 20:00; Stop at 20:02; Status DC Buspirone HCl (Buspar) 5 mg QID PO Last administered on 10/25/16 19:44; Start 10/19/16 at 09:00 Divalproex Sodium (Depakote Sprinkles) 125 mg [id number] PO Last administered on 17:07; Start 10/19/16 at 09:00; Stop 10/22/16 at 18:19; Status DC Lorazepam (Ativan) 0.5 mg PRN TID PRN PO ANXIETY / AGITATION Last administered on 10/22/16 10:58; Start 10/18/16 at 23:00 Olanzapine (ZyPREXA ZYDIS) 2.5 mg PRN Q4HRS PRN PO PSYCHOSIS Last administered on 10/24/16 12:10; Start 10/18/16 at 23:00 Quetiapine Fumarate (SEROquel) 25 mg QID PO Last administered on 10/23/16 17: 11; Start 10/19/16 at 09:00; Stop 10/23/16 at 18:39; Status DC Sertraline HCl (Zoloft) 75 mg DAILY PO Last administered on 10/25/16 07:28; Start 10/19/16 at 09:00 Trazodone HCl (Desyrel) 25 mg PRN QHS PRN PO INSOMNIA; Start 10/18/16 at 23:00 Melatonin 3 mg QHS PO Last administered on 10/25/16 19:44; Start 10/18/16 at 23:00 Pneumococcal Polyvalent Vaccine (Pneumovax 23) 0.5 ml ONCE ONCE VAX IM ; Start 10/19/16 at 09:00; Stop 10/19/16 at 09:02; Status DC Acetaminophen (Tylenol) 650 mg PRN Q6HRS PRN PO PAIN / TEMP; Start 10/19/16 at 06:15 Aspirin (Children'S Aspirin) 81 mg DAILY PO Last administered on 10/25/16 07: 27; Start 10/19/16 at 09:00 Cetirizine HCl (ZyrTEC) 10 mg DAILY PO Last administered on 10/25/16 07:27; Start 10/19/16 at 09:00 Cyanocobalamin (Vitamin B-12) 250 mcg DAILY PO Last administered on 10/24/16 08:10; Start 10/19/16 at 09:00 Diclofenac Sodium (Voltaren) 1 beck BID TP Last administered on 10/24/16 08:08 ; Start 10/19/16 at 09:00 Al Hydroxide/Mg Hydroxide (Mylanta Plus Xs) 15 ml PRN AFTMEALHC PRN PO DYSPEPSIA; Start 10/19/16 at 06:15 Multi-Ingredient Ointment (Analgesic [place]) 1 beck PRN QID PRN TP MUSCLE PAIN; Start 10/19/16 at 06:15 Metoprolol Succinate (Toprol Xl) 25 mg BID PO Last administered on 10/20/16 08 :37; Start 10/19/16 at 09:00; Stop 10/20/16 at 16:35; Status DC Phenytoin Sodium (Dilantin) 100 mg BID PO Last administered on 10/25/16 19:44 ; Start 10/19/16 at 09:00 Potassium Chloride (Klor-Con) 20 meq BID PO Last administered on 10/25/16 19: 43; Start 10/19/16 at 09:00 Vitamin D (Vitamin D3) 5,000 unit DAILY PO Last administered on 10/24/16 08:10 ; Start 10/19/16 at 09:00 Artificial Tears (Artificial Tears) 1 drop TID OU Last administered on 19:48; Start 10/19/16 at 09:00 Glucosamine Sulfate (Glucosamine) 1,000 mg DAILY PO Last administered on 08:10; Start 10/19/16 at 09:00 Magnesium Hydroxide (Milk Of Magnesia) 2,400 mg PRN QHS PRN PO CONSTIPATION; Start 10/19/16 at 07:15 Artificial Tears (Artificial Tears) 1 drop PRN Q15MIN PRN OU DRY EYE; Start 02/23 at 20:00 Divalproex Sodium (Depakote Sprinkles) 125 mg BID@1300,1700 PO Last administered on 10/25/16 16:56; Start 10/23/16 at 13:00; Stop 10/25/16 at 18:33 ; Status DC Divalproex Sodium (Depakote Sprinkles) 250 mg BID@0900,2100 PO Last administered on 10/25/16 07:27; Start 10/22/16 at 21:00; Stop 10/25/16 at 18:33 ; Status DC Quetiapine Fumarate (SEROquel) 37.5 mg BID@0900,1800 PO Last administered on 16:56; Start 10/24/16 at 09:00 Quetiapine Fumarate (SEROquel) 25 mg BID@1400,2100 PO Last administered on 10/25 19:44; Start 10/23/16 at 21:00 Divalproex Sodium (Depakote Sprinkles) 250 mg QID PO Last administered on 19:44; Start 10/25/16 at 21:00 Active Scripts Active Reported Buspirone Hcl 5 Mg Tablet 5 Mg PO QID Trazodone Hcl 50 Mg Tablet 25 Mg PO PRN QHS PRN Zoloft (Sertraline Hcl) 50 Mg Tablet 75 Mg PO DAILY Klor-Con M20 (Potassium Chloride) 20 Meq Tab.er.prt 20 Meq PO BID Artificial Tears Eye Drops (Dextran 70/Hypromellose) 15 Ml Drops 1 Drp OU TID Olanzapine Odt (Olanzapine) 5 Mg Tab.rapdis 2.5 Mg PO PRN Q4HRS PRN Analgesic [place] (Methyl Salicylate/Menthol) 28 Gm Oint...g. 1 Beck TP PRN QID PRN Maalox Maximum Strength Susp (Mag Hydrox/Al Hydrox/Simeth) 355 Ml Oral.susp 15 Ml PO PRN AFTMEALHC PRN Milk Of Magnesia (Magnesium Hydroxide) 2,400 Mg/10 Ml Oral.susp 2,400 Mg PO PRN QHS PRN Depakote Sprinkle (Divalproex Sodium) 125 Mg Cap.sprink 125 Mg PO [id number] Vitamin B-12 (Cyanocobalamin (Vitamin B-12)) 1,000 Mcg Tablet 250 Mcg PO DAILY Vitamin D3 (Cholecalciferol (Vitamin D3)) 5,000 Unit Tablet 5,000 Unit PO WEEKLY Cetirizine Hcl 10 Mg Tablet 10 Mg PO DAILY Tylenol (Acetaminophen) 325 Mg Tablet 650 Mg PO PRN Q6HRS PRN Seroquel (Quetiapine Fumarate) 25 Mg Tablet 25 Mg PO QID Voltaren (Diclofenac Sodium) 100 Gm Gel..gram. 1 Beck TP BID Lorazepam 0.5 Mg Tablet 0.5 Mg PO TID PRN Melatin (Melatonin) 3 Mg Tablet 3 Mg PO QHS Metoprolol Succinate ( Xl ) (Metoprolol Succinate) 25 Mg Tab.er.24h 25 Mg PO BID Dilantin (Phenytoin Sodium Extended) 100 Mg Capsule 100 Mg PO BID Glucosamine Sulfate (Glucosamine Sulfate 2KCL) 1,000 Mg Tablet 1,000 Mg PO DAILY Aspirin 81 Mg Tab.chew 81 Mg PO DAILY Diagnosis: Problems: (1) Dementia with behavioral disturbance (2) Anxiety disorder (3) Dementia in Alzheimer's disease with delusions (4) Dementia in Alzheimer's disease with depression (5) Dementia, vascular, with delusions (6) Dementia, vascular, with depression (7) Impulse control disorder NAKIA KO MD Oct 25, 2016 20:08
--- NOTE | 2016-10-26 02:29 | PN ---
DATE: 10/24/2016 This is a late entry for 10/24/2016 and covers elements not covered in my initial note. SUBJECTIVE: I met with the patient individually evening of 10/24/2016 and she was staffed at a treatment team meeting with the entire team morning of 10/24/2016 and the patient's daughter, Agata attended this conference. Reviewed her history. She slept 7 hours previous evening, refusing medications, combative, swinging at staff at times, agitated with her walker around 11:00 a.m., received Zyprexa at 12 noon p.r.n. REVIEW OF SYSTEMS: No CV, , pulmonary, eye, ENT system symptoms on review. Reliability poor. MENTAL STATUS EXAM: Oriented to herself. Insight, judgment, recent and remote memory, attention, concentration, fund of knowledge poor, consistent with her diagnosis mentioned in my initial note. PLAN: Continue psychotropics as mentioned in my initial loans up. Seroquel was recently increased. Valproic acid level is 32. We will see how she does with increased Seroquel. If agitation, mood lability persist, may have to adjust Depakote. MAN Leandro KO MD DR: LUCRECIA/luz JOB#: [id number] / [id number]
[2016-10-26 06:18] VITALS: BP 162/75
[2016-10-26] MEDS: busPIRone 5 MG TABLET. PO SCH ×4 (08:09→20:09)
[2016-10-26] MEDS: POLYVINYL ALCOHOL 1.4% OPHTH SOLUTION 15ML BOTTLE. OU SCH ×3 (08:09→20:04)
[2016-10-26] MEDS: ASPIRIN 81 MG TAB.CHEW PO SCH (08:10)
[2016-10-26] MEDS: DIVALPROEX 125 MG CAP.SPRINK PO SCH ×4 (08:11→20:08)
[2016-10-26] MEDS: GLUCOSAMINE 500 MG CAPSULE PO SCH (08:12)
[2016-10-26] MEDS: PHENYTOIN SODIUM EXTENDED 100 MG CAPSULE PO SCH ×2 (08:12→20:09)
[2016-10-26] MEDS: POTASSIUM CHLORIDE 20 MEQ TABLET.ER. PO SCH ×2 (08:12→20:09)
[2016-10-26] MEDS: CHOLECALCIFEROL (VITAMIN D3) 1,000 UNIT TABLET PO SCH (08:13)
[2016-10-26] MEDS: DICLOFENAC SODIUM 1% TOPICAL GEL 100GM TUBE. TP SCH ×2 (08:13→20:10)
[2016-10-26] MEDS: CETIRIZINE HCL 10 MG TABLET PO SCH (08:13)
[2016-10-26] MEDS: QUEtiapine 25 MG TABLET. PO SCH ×4 (08:13→20:07)
[2016-10-26] MEDS: CYANOCOBALAMIN (VITAMIN B-12) 250 MCG TABLET PO SCH (08:13)
[2016-10-26] MEDS: SERTRALINE 50 MG TABLET. PO SCH (08:13)
[2016-10-26 15:55] VITALS: BP 112/43
[2016-10-26] MEDS: MELATONIN 3 MG TABLET PO SCH (20:04)
[2016-10-26] MEDS: traZODone 50 MG TABLET. PO PRN (20:08)
--- NOTE | 2016-10-26 22:06 | PN ---
DATE: 10/25/2016 PSYCHIATRIC PROGRESS NOTE This is a late entry of 10/25/2016 covers elements not covered in my initial note of 10/25/2016. SUBJECTIVE: I met with the patient evening of 10/25/2016. Per nursing report, she has had 2 tearful episodes, paranoid, suspicious, believes she is in fdc, takes her medications with her food if she is unaware of what she is doing. She paranoid, delusional, the previous evening believes that boy had . Valproic acid level has dropped from 30-28. REVIEW OF SYSTEMS: No CV, , pulmonary, eye, ENT system symptoms on review. Reliability poor. MENTAL STATUS EXAM: Oriented to herself. Insight, judgment, recent and remote memory, attention, concentration, fund of knowledge poor, consistent with her diagnosis mentioned in my initial note. PLAN: Depakote Sprinkles was 125 mg b.i.d. to 50 b.i.d. We will increase it to 250 mg 4 times a day. Continue Seroquel, Zoloft, BuSpar, melatonin, trazodone along with Ativan p.r.n. Valproic acid level has dropped from 32 to 28, and we will repeat labs level in 3 days with the increase of the Depakote to get a therapeutic level. Review drug interactions risk-benefit ratio favors no further change as of now. MAN Leandro KO MD DR: [email or web address]/luz JOB#: [id number] / [id number]
--- NOTE | 2016-10-26 23:21 | PDOC ---
Exam Dane Demential Exam: Dane Note: Please also refer to the separate dictated note~for this date of service dictated separately.~Patient seen individually. Discussed the patient with Nursing staff reviewed the chart.~Reviewed interim history and current functioning. Reviewed vital signs,~Labs/ Radiology~and current medications noted below. Continue current treatment with the changes noted in the dictated addendum note Assessment: Vital Signs: Vital Signs Date Time Temp Pulse Resp B/P (MAP) Pulse Ox O2 Delivery O2 Flow Rate FiO2 10/26/16 15:55 71 22 112/43 (66) 97 10/26/16 06:18 97.5 10/22/16 05:38 Room Air I&O Intake and Output 10/26/16 07:00 Intake Total 1320 ml Balance 1320 ml Intake Oral 1320 ml Current Medications: Meds: Current Medications Lorazepam (Ativan) 2 mg 1X ONCE IM Last administered on 10/18/16 20:13; Start 10/18/16 at 20:00; Stop 10/18/16 at 20:01; Status DC Haloperidol Lactate (Haldol) 5 mg 1X ONCE IM Last administered on 10/18/16 20 :13; Start 10/18/16 at 20:00; Stop 10/18/16 at 20:02; Status DC Lorazepam (Ativan) 2 mg 1X ONCE IV ; Start 10/18/16 at 20:00; Stop 10/18/16 at 20:02; Status DC Haloperidol Lactate (Haldol) 5 mg 1X ONCE IM ; Start 10/18/16 at 20:00; Stop at 20:02; Status DC Buspirone HCl (Buspar) 5 mg QID PO Last administered on 10/26/16 20:09; Start 10/19/16 at 09:00 Divalproex Sodium (Depakote Sprinkles) 125 mg [id number] PO Last administered on 17:07; Start 10/19/16 at 09:00; Stop 10/22/16 at 18:19; Status DC Lorazepam (Ativan) 0.5 mg PRN TID PRN PO ANXIETY / AGITATION Last administered on 10/22/16 10:58; Start 10/18/16 at 23:00 Olanzapine (ZyPREXA ZYDIS) 2.5 mg PRN Q4HRS PRN PO PSYCHOSIS Last administered on 10/24/16 12:10; Start 10/18/16 at 23:00 Quetiapine Fumarate (SEROquel) 25 mg QID PO Last administered on 10/23/16 17: 11; Start 10/19/16 at 09:00; Stop 10/23/16 at 18:39; Status DC Sertraline HCl (Zoloft) 75 mg DAILY PO Last administered on 10/26/16 08:13; Start 10/19/16 at 09:00 Trazodone HCl (Desyrel) 25 mg PRN QHS PRN PO INSOMNIA Last administered on 10/26 20:08; Start 10/18/16 at 23:00 Melatonin 3 mg QHS PO Last administered on 10/26/16 20:04; Start 10/18/16 at 23:00 Pneumococcal Polyvalent Vaccine (Pneumovax 23) 0.5 ml ONCE ONCE VAX IM ; Start 10/19/16 at 09:00; Stop 10/19/16 at 09:02; Status DC Acetaminophen (Tylenol) 650 mg PRN Q6HRS PRN PO PAIN / TEMP; Start 10/19/16 at 06:15 Aspirin (Children'S Aspirin) 81 mg DAILY PO Last administered on 10/26/16 08: 10; Start 10/19/16 at 09:00 Cetirizine HCl (ZyrTEC) 10 mg DAILY PO Last administered on 10/26/16 08:13; Start 10/19/16 at 09:00 Cyanocobalamin (Vitamin B-12) 250 mcg DAILY PO Last administered on 10/26/16 08:13; Start 10/19/16 at 09:00 Diclofenac Sodium (Voltaren) 1 beck BID TP Last administered on 10/26/16 20:10 ; Start 10/19/16 at 09:00 Al Hydroxide/Mg Hydroxide (Mylanta Plus Xs) 15 ml PRN AFTMEALHC PRN PO DYSPEPSIA; Start 10/19/16 at 06:15 Multi-Ingredient Ointment (Analgesic [place]) 1 beck PRN QID PRN TP MUSCLE PAIN; Start 10/19/16 at 06:15 Metoprolol Succinate (Toprol Xl) 25 mg BID PO Last administered on 10/20/16 08 :37; Start 10/19/16 at 09:00; Stop 10/20/16 at 16:35; Status DC Phenytoin Sodium (Dilantin) 100 mg BID PO Last administered on 10/26/16 20:09 ; Start 10/19/16 at 09:00 Potassium Chloride (Klor-Con) 20 meq BID PO Last administered on 10/26/16 20: 09; Start 10/19/16 at 09:00 Vitamin D (Vitamin D3) 5,000 unit DAILY PO Last administered on 10/26/16 08:13 ; Start 10/19/16 at 09:00 Artificial Tears (Artificial Tears) 1 drop TID OU Last administered on 20:04; Start 10/19/16 at 09:00 Glucosamine Sulfate (Glucosamine) 1,000 mg DAILY PO Last administered on 08:12; Start 10/19/16 at 09:00 Magnesium Hydroxide (Milk Of Magnesia) 2,400 mg PRN QHS PRN PO CONSTIPATION; Start 10/19/16 at 07:15 Artificial Tears (Artificial Tears) 1 drop PRN Q15MIN PRN OU DRY EYE; Start 02/23 at 20:00 Divalproex Sodium (Depakote Sprinkles) 125 mg BID@1300,1700 PO Last administered on 10/25/16 16:56; Start 10/23/16 at 13:00; Stop 10/25/16 at 18:33 ; Status DC Divalproex Sodium (Depakote Sprinkles) 250 mg BID@0900,2100 PO Last administered on 10/25/16 07:27; Start 10/22/16 at 21:00; Stop 10/25/16 at 18:33 ; Status DC Quetiapine Fumarate (SEROquel) 37.5 mg BID@0900,1800 PO Last administered on 17:00; Start 10/24/16 at 09:00 Quetiapine Fumarate (SEROquel) 25 mg BID@1400,2100 PO Last administered on 10/26 20:07; Start 10/23/16 at 21:00 Divalproex Sodium (Depakote Sprinkles) 250 mg QID PO Last administered on 20:08; Start 10/25/16 at 21:00 Active Scripts Active Reported Buspirone Hcl 5 Mg Tablet 5 Mg PO QID Trazodone Hcl 50 Mg Tablet 25 Mg PO PRN QHS PRN Zoloft (Sertraline Hcl) 50 Mg Tablet 75 Mg PO DAILY Klor-Con M20 (Potassium Chloride) 20 Meq Tab.er.prt 20 Meq PO BID Artificial Tears Eye Drops (Dextran 70/Hypromellose) 15 Ml Drops 1 Drp OU TID Olanzapine Odt (Olanzapine) 5 Mg Tab.rapdis 2.5 Mg PO PRN Q4HRS PRN Analgesic [place] (Methyl Salicylate/Menthol) 28 Gm Oint...g. 1 Beck TP PRN QID PRN Maalox Maximum Strength Susp (Mag Hydrox/Al Hydrox/Simeth) 355 Ml Oral.susp 15 Ml PO PRN AFTMEALHC PRN Milk Of Magnesia (Magnesium Hydroxide) 2,400 Mg/10 Ml Oral.susp 2,400 Mg PO PRN QHS PRN Depakote Sprinkle (Divalproex Sodium) 125 Mg Cap.sprink 125 Mg PO [id number] Vitamin B-12 (Cyanocobalamin (Vitamin B-12)) 1,000 Mcg Tablet 250 Mcg PO DAILY Vitamin D3 (Cholecalciferol (Vitamin D3)) 5,000 Unit Tablet 5,000 Unit PO WEEKLY Cetirizine Hcl 10 Mg Tablet 10 Mg PO DAILY Tylenol (Acetaminophen) 325 Mg Tablet 650 Mg PO PRN Q6HRS PRN Seroquel (Quetiapine Fumarate) 25 Mg Tablet 25 Mg PO QID Voltaren (Diclofenac Sodium) 100 Gm Gel..gram. 1 Beck TP BID Lorazepam 0.5 Mg Tablet 0.5 Mg PO TID PRN Melatin (Melatonin) 3 Mg Tablet 3 Mg PO QHS Metoprolol Succinate ( Xl ) (Metoprolol Succinate) 25 Mg Tab.er.24h 25 Mg PO BID Dilantin (Phenytoin Sodium Extended) 100 Mg Capsule 100 Mg PO BID Glucosamine Sulfate (Glucosamine Sulfate 2KCL) 1,000 Mg Tablet 1,000 Mg PO DAILY Aspirin 81 Mg Tab.chew 81 Mg PO DAILY Diagnosis: Problems: (1) Dementia with behavioral disturbance (2) Anxiety disorder (3) Dementia in Alzheimer's disease with delusions (4) Dementia in Alzheimer's disease with depression (5) Dementia, vascular, with delusions (6) Dementia, vascular, with depression (7) Impulse control disorder NAKIA KO MD Oct 26, 2016 23:21
[2016-10-27 05:50] VITALS: BP 111/65
[2016-10-27] MEDS: POLYVINYL ALCOHOL 1.4% OPHTH SOLUTION 15ML BOTTLE. OU SCH ×3 (07:23→19:59)
[2016-10-27] MEDS: busPIRone 5 MG TABLET. PO SCH ×4 (07:24→19:58)
[2016-10-27] MEDS: GLUCOSAMINE 500 MG CAPSULE PO SCH (07:24)
[2016-10-27] MEDS: PHENYTOIN SODIUM EXTENDED 100 MG CAPSULE PO SCH ×2 (07:24→19:58)
[2016-10-27] MEDS: ASPIRIN 81 MG TAB.CHEW PO SCH (07:24)
[2016-10-27] MEDS: DIVALPROEX 125 MG CAP.SPRINK PO SCH ×4 (07:24→19:59)
[2016-10-27] MEDS: CHOLECALCIFEROL (VITAMIN D3) 1,000 UNIT TABLET PO SCH (07:25)
[2016-10-27] MEDS: QUEtiapine 25 MG TABLET. PO SCH ×4 (07:25→19:58)
[2016-10-27] MEDS: POTASSIUM CHLORIDE 20 MEQ TABLET.ER. PO SCH ×2 (07:25→19:58)
[2016-10-27] MEDS: CYANOCOBALAMIN (VITAMIN B-12) 250 MCG TABLET PO SCH (07:25)
[2016-10-27] MEDS: CETIRIZINE HCL 10 MG TABLET PO SCH (07:26)
[2016-10-27] MEDS: SERTRALINE 50 MG TABLET. PO SCH (07:26)
[2016-10-27] MEDS: DICLOFENAC SODIUM 1% TOPICAL GEL 100GM TUBE. TP SCH ×2 (09:00→20:03)
[2016-10-27 16:26] LABS: BASO % 0 % (0-3); EOS # 0.2 x10^3/uL (0.0-0.7); EOS % 3 % (0-3); HEMATOCRIT 33.9 % (36.0-47.0); HEMOGLOBIN 11.5 g/dL (12.0-15.5); LYMPH # 1.7 x10^3/uL (1.0-4.8); LYMPH % 30 % (24-48); MEAN CORPUSCULAR HEMOGLOBIN 31 pg (25-35); MEAN CORPUSCULAR HGB CONC 34 g/dL (31-37); MEAN CORPUSCULAR VOLUME 92 fL (79-100); MONO # 0.5 x10^3/uL (0.0-1.1); MONO % 8 % (0-9); NEUT # 3.5 x10^3uL (1.8-7.7); NEUT % 59 % (31-73); PLATELET COUNT 227 x10^3/uL (140-400); RED BLOOD COUNT 3.69 x10^6/uL (3.50-5.40); RED CELL DISTRIBUTION WIDTH 14.8 % (11.5-14.5); WHITE BLOOD COUNT 5.9 x10^3/uL (4.0-11.0)
[2016-10-27 16:27] VITALS: BP 110/60
[2016-10-27 16:39] LABS: ALBUMIN 3.8 g/dL (3.4-5.0); ALBUMIN/GLOBULIN RATIO 1.1 (1.0-1.7); ALK PHOS 139 U/L (46-116); ALT (SGPT) 30 U/L (14-59); ANION GAP 9 (6-14); AST (SGOT) 27 U/L (15-37); BLOOD UREA NITROGEN 17 mg/dL (7-20); BUN/CREATININE RATIO 17 (6-20); CALCIUM 8.7 mg/dL (8.5-10.1); CARBON DIOXIDE 26 mmol/L (21-32); CHLORIDE 105 mmol/L (98-107); GFR 52.7; GLUCOSE 101 mg/dL (70-99); PHENY 13.8 mcg/mL (10.0-20.0); SODIUM 140 mmol/L (136-145); TOTAL BILIRUBIN 0.3 mg/dL (0.2-1.0); TOTAL PROTEIN 7.2 g/dL (6.4-8.2)
[2016-10-27] MEDS: MELATONIN 3 MG TABLET PO SCH (19:58)
--- NOTE | 2016-10-27 20:01 | PDOC ---
Exam Dane Demential Exam: Dane Note: Please also refer to the separate dictated note~for this date of service dictated separately.~Patient seen individually. Discussed the patient with Nursing staff reviewed the chart.~Reviewed interim history and current functioning. Reviewed vital signs,~Labs/ Radiology~and current medications noted below. Continue current treatment with the changes noted in the dictated addendum note Assessment: Vital Signs: Vital Signs Date Time Temp Pulse Resp B/P (MAP) Pulse Ox O2 Delivery O2 Flow Rate FiO2 10/27/16 16:27 98.1 71 20 110/60 (77) 100 Room Air I&O Intake and Output 10/27/16 07:00 Intake Total 840 ml Balance 840 ml Intake Oral 840 ml Labs: Laboratory Tests Test 10/27/16 15:58 10/27/16 16:05 Glucose (Fingerstick) 93 mg/dL (70-99) White Blood Count 5.9 x10^3/uL (4.0-11.0) Red Blood Count 3.69 x10^6/uL (3.50-5.40) Hemoglobin 11.5 g/dL (12.0-15.5) L Hematocrit 33.9 % (36.0-47.0) L Mean Corpuscular Volume 92 fL (79-100) Mean Corpuscular Hemoglobin 31 pg (25-35) Mean Corpuscular Hemoglobin Concent 34 g/dL (31-37) Red Cell Distribution Width 14.8 % (11.5-14.5) H Platelet Count 227 x10^3/uL (140-400) Neutrophils (%) (Auto) 59 % (31-73) Lymphocytes (%) (Auto) 30 % (24-48) Monocytes (%) (Auto) 8 % (0-9) Eosinophils (%) (Auto) 3 % (0-3) Basophils (%) (Auto) 0 % (0-3) Neutrophils # (Auto) 3.5 x10^3uL (1.8-7.7) Lymphocytes # (Auto) 1.7 x10^3/uL (1.0-4.8) Monocytes # (Auto) 0.5 x10^3/uL (0.0-1.1) Eosinophils # (Auto) 0.2 x10^3/uL (0.0-0.7) Basophils # (Auto) 0.0 x10^3/uL (0.0-0.2) Sodium Level 140 mmol/L (136-145) Potassium Level 4.0 mmol/L (3.5-5.1) Chloride Level 105 mmol/L (98-107) Carbon Dioxide Level 26 mmol/L (21-32) Anion Gap 9 (6-14) Blood Urea Nitrogen 17 mg/dL (7-20) Creatinine 1.0 mg/dL (0.6-1.0) Estimated GFR (Cockcroft-Gault) 52.7 BUN/Creatinine Ratio 17 (6-20) Glucose Level 101 mg/dL (70-99) H Lactic Acid Level 1.6 mmol/L (0.4-2.0) Calcium Level 8.7 mg/dL (8.5-10.1) Total Bilirubin 0.3 mg/dL (0.2-1.0) Aspartate Amino Transferase (AST) 27 U/L (15-37) Alanine Aminotransferase (ALT) 30 U/L (14-59) Alkaline Phosphatase 139 U/L (46-116) H Creatine Kinase 91 U/L (26-192) Creatine Kinase MB (Mass) 0.7 ng/mL (0.0-3.6) Creatine Kinase MB Relative Index 0.8 % (0-4) Troponin I Quantitative < 0.017 ng/mL (0-0.055) Total Protein 7.2 g/dL (6.4-8.2) Albumin 3.8 g/dL (3.4-5.0) Albumin/Globulin Ratio 1.1 (1.0-1.7) Phenytoin (Dilantin) Level 13.8 mcg/mL (10.0-20.0) Phenytoin Last Dose Date 10/27/16 Phenytoin Last Dose Time 0800 Current Medications: Meds: Current Medications Lorazepam (Ativan) 2 mg 1X ONCE IM Last administered on 10/18/16 20:13; Start 10/18/16 at 20:00; Stop 10/18/16 at 20:01; Status DC Haloperidol Lactate (Haldol) 5 mg 1X ONCE IM Last administered on 10/18/16 20 :13; Start 10/18/16 at 20:00; Stop 10/18/16 at 20:02; Status DC Lorazepam (Ativan) 2 mg 1X ONCE IV ; Start 10/18/16 at 20:00; Stop 10/18/16 at 20:02; Status DC Haloperidol Lactate (Haldol) 5 mg 1X ONCE IM ; Start 10/18/16 at 20:00; Stop at 20:02; Status DC Buspirone HCl (Buspar) 5 mg QID PO Last administered on 10/27/16 17:50; Start 10/19/16 at 09:00 Divalproex Sodium (Depakote Sprinkles) 125 mg [id number] PO Last administered on 17:07; Start 10/19/16 at 09:00; Stop 10/22/16 at 18:19; Status DC Lorazepam (Ativan) 0.5 mg PRN TID PRN PO ANXIETY / AGITATION Last administered on 10/22/16 10:58; Start 10/18/16 at 23:00 Olanzapine (ZyPREXA ZYDIS) 2.5 mg PRN Q4HRS PRN PO PSYCHOSIS Last administered on 10/27/16 13:11; Start 10/18/16 at 23:00 Quetiapine Fumarate (SEROquel) 25 mg QID PO Last administered on 10/23/16 17: 11; Start 10/19/16 at 09:00; Stop 10/23/16 at 18:39; Status DC Sertraline HCl (Zoloft) 75 mg DAILY PO Last administered on 10/27/16 07:26; Start 10/19/16 at 09:00 Trazodone HCl (Desyrel) 25 mg PRN QHS PRN PO INSOMNIA Last administered on 10/26 20:08; Start 10/18/16 at 23:00 Melatonin 3 mg QHS PO Last administered on 10/26/16 20:04; Start 10/18/16 at 23:00 Pneumococcal Polyvalent Vaccine (Pneumovax 23) 0.5 ml ONCE ONCE VAX IM ; Start 10/19/16 at 09:00; Stop 10/19/16 at 09:02; Status DC Acetaminophen (Tylenol) 650 mg PRN Q6HRS PRN PO PAIN / TEMP; Start 10/19/16 at 06:15 Aspirin (Children'S Aspirin) 81 mg DAILY PO Last administered on 10/27/16 07: 24; Start 10/19/16 at 09:00 Cetirizine HCl (ZyrTEC) 10 mg DAILY PO Last administered on 10/27/16 07:26; Start 10/19/16 at 09:00 Cyanocobalamin (Vitamin B-12) 250 mcg DAILY PO Last administered on 10/27/16 07:25; Start 10/19/16 at 09:00 Diclofenac Sodium (Voltaren) 1 beck BID TP Last administered on 10/26/16 20:10 ; Start 10/19/16 at 09:00 Al Hydroxide/Mg Hydroxide (Mylanta Plus Xs) 15 ml PRN AFTMEALHC PRN PO DYSPEPSIA; Start 10/19/16 at 06:15 Multi-Ingredient Ointment (Analgesic [place]) 1 beck PRN QID PRN TP MUSCLE PAIN; Start 10/19/16 at 06:15 Metoprolol Succinate (Toprol Xl) 25 mg BID PO Last administered on 10/20/16 08 :37; Start 10/19/16 at 09:00; Stop 10/20/16 at 16:35; Status DC Phenytoin Sodium (Dilantin) 100 mg BID PO Last administered on 10/27/16 07:24 ; Start 10/19/16 at 09:00 Potassium Chloride (Klor-Con) 20 meq BID PO Last administered on 10/27/16 07: 25; Start 10/19/16 at 09:00 Vitamin D (Vitamin D3) 5,000 unit DAILY PO Last administered on 10/27/16 07:25 ; Start 10/19/16 at 09:00 Artificial Tears (Artificial Tears) 1 drop TID OU Last administered on 20:04; Start 10/19/16 at 09:00 Glucosamine Sulfate (Glucosamine) 1,000 mg DAILY PO Last administered on 07:24; Start 10/19/16 at 09:00 Magnesium Hydroxide (Milk Of Magnesia) 2,400 mg PRN QHS PRN PO CONSTIPATION; Start 10/19/16 at 07:15 Artificial Tears (Artificial Tears) 1 drop PRN Q15MIN PRN OU DRY EYE; Start 02/23 at 20:00 Divalproex Sodium (Depakote Sprinkles) 125 mg BID@1300,1700 PO Last administered on 10/25/16 16:56; Start 10/23/16 at 13:00; Stop 10/25/16 at 18:33 ; Status DC Divalproex Sodium (Depakote Sprinkles) 250 mg BID@0900,2100 PO Last administered on 10/25/16 07:27; Start 10/22/16 at 21:00; Stop 10/25/16 at 18:33 ; Status DC Quetiapine Fumarate (SEROquel) 37.5 mg BID@0900,1800 PO Last administered on 07:25; Start 10/24/16 at 09:00 Quetiapine Fumarate (SEROquel) 25 mg BID@1400,2100 PO Last administered on 10/27 12:26; Start 10/23/16 at 21:00 Divalproex Sodium (Depakote Sprinkles) 250 mg QID PO Last administered on 17:51; Start 10/25/16 at 21:00 Active Scripts Active Reported Buspirone Hcl 5 Mg Tablet 5 Mg PO QID Trazodone Hcl 50 Mg Tablet 25 Mg PO PRN QHS PRN Zoloft (Sertraline Hcl) 50 Mg Tablet 75 Mg PO DAILY Klor-Con M20 (Potassium Chloride) 20 Meq Tab.er.prt 20 Meq PO BID Artificial Tears Eye Drops (Dextran 70/Hypromellose) 15 Ml Drops 1 Drp OU TID Olanzapine Odt (Olanzapine) 5 Mg Tab.rapdis 2.5 Mg PO PRN Q4HRS PRN Analgesic [place] (Methyl Salicylate/Menthol) 28 Gm Oint...g. 1 Beck TP PRN QID PRN Maalox Maximum Strength Susp (Mag Hydrox/Al Hydrox/Simeth) 355 Ml Oral.susp 15 Ml PO PRN AFTMEALHC PRN Milk Of Magnesia (Magnesium Hydroxide) 2,400 Mg/10 Ml Oral.susp 2,400 Mg PO PRN QHS PRN Depakote Sprinkle (Divalproex Sodium) 125 Mg Cap.sprink 125 Mg PO [id number] Vitamin B-12 (Cyanocobalamin (Vitamin B-12)) 1,000 Mcg Tablet 250 Mcg PO DAILY Vitamin D3 (Cholecalciferol (Vitamin D3)) 5,000 Unit Tablet 5,000 Unit PO WEEKLY Cetirizine Hcl 10 Mg Tablet 10 Mg PO DAILY Tylenol (Acetaminophen) 325 Mg Tablet 650 Mg PO PRN Q6HRS PRN Seroquel (Quetiapine Fumarate) 25 Mg Tablet 25 Mg PO QID Voltaren (Diclofenac Sodium) 100 Gm Gel..gram. 1 Beck TP BID Lorazepam 0.5 Mg Tablet 0.5 Mg PO TID PRN Melatin (Melatonin) 3 Mg Tablet 3 Mg PO QHS Metoprolol Succinate ( Xl ) (Metoprolol Succinate) 25 Mg Tab.er.24h 25 Mg PO BID Dilantin (Phenytoin Sodium Extended) 100 Mg Capsule 100 Mg PO BID Glucosamine Sulfate (Glucosamine Sulfate 2KCL) 1,000 Mg Tablet 1,000 Mg PO DAILY Aspirin 81 Mg Tab.chew 81 Mg PO DAILY Diagnosis: Problems: (1) Dementia with behavioral disturbance (2) Anxiety disorder (3) Dementia in Alzheimer's disease with delusions (4) Dementia in Alzheimer's disease with depression (5) Dementia, vascular, with delusions (6) Dementia, vascular, with depression (7) Impulse control disorder NAKIA KO MD Oct 27, 2016 20:01
--- NOTE | 2016-10-28 00:45 | PN ---
DATE: 10/26/2016 This late entry 10/26/2016 covers elements not covered in my initial note. SUBJECTIVE: I met with the patient in the evening of 10/26/2016. She has remained confused and had a better day, still anxious, restless, little intrusive, but redirectable, paranoid, suspicious, as I met with her. REVIEW OF SYSTEMS: No CV, , pulmonary, eye, ENT system symptoms on review. Reliability poor. MENTAL STATUS EXAM: Oriented to herself. Insight, judgment, recent and remote memory, attention, concentration, fund of knowledge poor, consistent with her diagnosis as mentioned in my initial note. LABORATORY DATA: Reviewed. IMPRESSION: Unchanged from initial note. PLAN: Reviewed drug interactions, risk/benefit ratio favors no further change. Continue Zoloft, Seroquel, Depakote, BuSpar, melatonin, trazodone, Ativan p.r.n., Zyprexa p.r.n. Repeat labs, valproic acid level on 10/29/2016. Adjust Depakote thereafter to reach a therapeutic level if behavior, mood lability persists. MAN Leandro KO MD DR: LUCRECIA/luz JOB#: [id number] / [id number]
[2016-10-28 06:04] VITALS: BP 136/69
[2016-10-28] MEDS: LORazepam 0.5 MG TABLET PO PRN ×2 (06:36→19:47)
[2016-10-28] MEDS: ASPIRIN 81 MG TAB.CHEW PO SCH (08:19)
[2016-10-28] MEDS: busPIRone 5 MG TABLET. PO SCH ×4 (08:19→19:48)
[2016-10-28] MEDS: DIVALPROEX 125 MG CAP.SPRINK PO SCH ×4 (08:19→19:48)
[2016-10-28] MEDS: POLYVINYL ALCOHOL 1.4% OPHTH SOLUTION 15ML BOTTLE. OU SCH ×3 (08:19→19:45)
[2016-10-28] MEDS: PHENYTOIN SODIUM EXTENDED 100 MG CAPSULE PO SCH ×2 (08:20→19:48)
[2016-10-28] MEDS: POTASSIUM CHLORIDE 20 MEQ TABLET.ER. PO SCH ×2 (08:20→19:48)
[2016-10-28] MEDS: QUEtiapine 25 MG TABLET. PO SCH ×4 (08:20→19:47)
[2016-10-28] MEDS: CYANOCOBALAMIN (VITAMIN B-12) 250 MCG TABLET PO SCH (08:20)
[2016-10-28] MEDS: GLUCOSAMINE 500 MG CAPSULE PO SCH (08:20)
[2016-10-28] MEDS: DICLOFENAC SODIUM 1% TOPICAL GEL 100GM TUBE. TP SCH ×2 (08:21→19:45)
[2016-10-28] MEDS: CETIRIZINE HCL 10 MG TABLET PO SCH (08:21)
[2016-10-28] MEDS: CHOLECALCIFEROL (VITAMIN D3) 1,000 UNIT TABLET PO SCH (08:21)
[2016-10-28] MEDS: SERTRALINE 50 MG TABLET. PO SCH (08:21)
--- NOTE | 2016-10-28 12:59 | RAD ---
Chest x-ray Indication: 86-year-old female status post rapid response Technique: Portable upright AP chest x-ray Comparison: None Findings: Heart is normal in size. Lungs are clear. No pneumothorax or pleural effusion. Visualized bony thorax within normal limits Impression: No acute cardiopulmonary process. MTDD
--- NOTE | 2016-10-28 13:30 | EKG ---
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
[2016-10-28 16:10] VITALS: BP 99/69
[2016-10-28] MEDS: MELATONIN 3 MG TABLET PO SCH (19:48)
--- NOTE | 2016-10-28 19:58 | PDOC ---
Exam Dane Demential Exam: Dane Note: Please also refer to the separate dictated note~for this date of service dictated separately.~Patient seen individually. Discussed the patient with Nursing staff reviewed the chart.~Reviewed interim history and current functioning. Reviewed vital signs,~Labs/ Radiology~and current medications noted below. Continue current treatment with the changes noted in the dictated addendum note Assessment: Vital Signs: Vital Signs Date Time Temp Pulse Resp B/P (MAP) Pulse Ox O2 Delivery O2 Flow Rate FiO2 10/28/16 16:10 98.4 62 18 99/69 (79) 97 10/27/16 16:27 Room Air I&O Intake and Output 10/28/16 06:59 Intake Total 840 ml Balance 840 ml Intake Oral 840 ml Current Medications: Meds: Current Medications Lorazepam (Ativan) 2 mg 1X ONCE IM Last administered on 10/18/16 20:13; Start 10/18/16 at 20:00; Stop 10/18/16 at 20:01; Status DC Haloperidol Lactate (Haldol) 5 mg 1X ONCE IM Last administered on 10/18/16 20 :13; Start 10/18/16 at 20:00; Stop 10/18/16 at 20:02; Status DC Lorazepam (Ativan) 2 mg 1X ONCE IV ; Start 10/18/16 at 20:00; Stop 10/18/16 at 20:02; Status DC Haloperidol Lactate (Haldol) 5 mg 1X ONCE IM ; Start 10/18/16 at 20:00; Stop at 20:02; Status DC Buspirone HCl (Buspar) 5 mg QID PO Last administered on 10/28/16 19:48; Start 10/19/16 at 09:00 Divalproex Sodium (Depakote Sprinkles) 125 mg [id number] PO Last administered on 17:07; Start 10/19/16 at 09:00; Stop 10/22/16 at 18:19; Status DC Lorazepam (Ativan) 0.5 mg PRN TID PRN PO ANXIETY / AGITATION Last administered on 10/28/16 19:47; Start 10/18/16 at 23:00 Olanzapine (ZyPREXA ZYDIS) 2.5 mg PRN Q4HRS PRN PO PSYCHOSIS Last administered on 10/27/16 13:11; Start 10/18/16 at 23:00 Quetiapine Fumarate (SEROquel) 25 mg QID PO Last administered on 10/23/16 17: 11; Start 10/19/16 at 09:00; Stop 10/23/16 at 18:39; Status DC Sertraline HCl (Zoloft) 75 mg DAILY PO Last administered on 10/28/16 08:21; Start 10/19/16 at 09:00 Trazodone HCl (Desyrel) 25 mg PRN QHS PRN PO INSOMNIA Last administered on 10/26 20:08; Start 10/18/16 at 23:00 Melatonin 3 mg QHS PO Last administered on 10/28/16 19:48; Start 10/18/16 at 23:00 Pneumococcal Polyvalent Vaccine (Pneumovax 23) 0.5 ml ONCE ONCE VAX IM ; Start 10/19/16 at 09:00; Stop 10/19/16 at 09:02; Status DC Acetaminophen (Tylenol) 650 mg PRN Q6HRS PRN PO PAIN / TEMP; Start 10/19/16 at 06:15 Aspirin (Children'S Aspirin) 81 mg DAILY PO Last administered on 10/28/16 08: 19; Start 10/19/16 at 09:00 Cetirizine HCl (ZyrTEC) 10 mg DAILY PO Last administered on 10/28/16 08:21; Start 10/19/16 at 09:00 Cyanocobalamin (Vitamin B-12) 250 mcg DAILY PO Last administered on 10/28/16 08:20; Start 10/19/16 at 09:00 Diclofenac Sodium (Voltaren) 1 beck BID TP Last administered on 10/27/16 20:03 ; Start 10/19/16 at 09:00 Al Hydroxide/Mg Hydroxide (Mylanta Plus Xs) 15 ml PRN AFTMEALHC PRN PO DYSPEPSIA; Start 10/19/16 at 06:15 Multi-Ingredient Ointment (Analgesic [place]) 1 beck PRN QID PRN TP MUSCLE PAIN; Start 10/19/16 at 06:15 Metoprolol Succinate (Toprol Xl) 25 mg BID PO Last administered on 10/20/16 08 :37; Start 10/19/16 at 09:00; Stop 10/20/16 at 16:35; Status DC Phenytoin Sodium (Dilantin) 100 mg BID PO Last administered on 10/28/16 19:48 ; Start 10/19/16 at 09:00 Potassium Chloride (Klor-Con) 20 meq BID PO Last administered on 10/28/16 19: 48; Start 10/19/16 at 09:00 Vitamin D (Vitamin D3) 5,000 unit DAILY PO Last administered on 10/28/16 08:21 ; Start 10/19/16 at 09:00 Artificial Tears (Artificial Tears) 1 drop TID OU Last administered on 19:59; Start 10/19/16 at 09:00 Glucosamine Sulfate (Glucosamine) 1,000 mg DAILY PO Last administered on 08:20; Start 10/19/16 at 09:00 Magnesium Hydroxide (Milk Of Magnesia) 2,400 mg PRN QHS PRN PO CONSTIPATION; Start 10/19/16 at 07:15 Artificial Tears (Artificial Tears) 1 drop PRN Q15MIN PRN OU DRY EYE; Start 02/23 at 20:00 Divalproex Sodium (Depakote Sprinkles) 125 mg BID@1300,1700 PO Last administered on 10/25/16 16:56; Start 10/23/16 at 13:00; Stop 10/25/16 at 18:33 ; Status DC Divalproex Sodium (Depakote Sprinkles) 250 mg BID@0900,2100 PO Last administered on 10/25/16 07:27; Start 10/22/16 at 21:00; Stop 10/25/16 at 18:33 ; Status DC Quetiapine Fumarate (SEROquel) 37.5 mg BID@0900,1800 PO Last administered on 17:21; Start 10/24/16 at 09:00 Quetiapine Fumarate (SEROquel) 25 mg BID@1400,2100 PO Last administered on 10/28 19:47; Start 10/23/16 at 21:00 Divalproex Sodium (Depakote Sprinkles) 250 mg QID PO Last administered on 19:48; Start 10/25/16 at 21:00 Active Scripts Active Reported Buspirone Hcl 5 Mg Tablet 5 Mg PO QID Trazodone Hcl 50 Mg Tablet 25 Mg PO PRN QHS PRN Zoloft (Sertraline Hcl) 50 Mg Tablet 75 Mg PO DAILY Klor-Con M20 (Potassium Chloride) 20 Meq Tab.er.prt 20 Meq PO BID Artificial Tears Eye Drops (Dextran 70/Hypromellose) 15 Ml Drops 1 Drp OU TID Olanzapine Odt (Olanzapine) 5 Mg Tab.rapdis 2.5 Mg PO PRN Q4HRS PRN Analgesic [place] (Methyl Salicylate/Menthol) 28 Gm Oint...g. 1 Beck TP PRN QID PRN Maalox Maximum Strength Susp (Mag Hydrox/Al Hydrox/Simeth) 355 Ml Oral.susp 15 Ml PO PRN AFTMEALHC PRN Milk Of Magnesia (Magnesium Hydroxide) 2,400 Mg/10 Ml Oral.susp 2,400 Mg PO PRN QHS PRN Depakote Sprinkle (Divalproex Sodium) 125 Mg Cap.sprink 125 Mg PO [id number] Vitamin B-12 (Cyanocobalamin (Vitamin B-12)) 1,000 Mcg Tablet 250 Mcg PO DAILY Vitamin D3 (Cholecalciferol (Vitamin D3)) 5,000 Unit Tablet 5,000 Unit PO WEEKLY Cetirizine Hcl 10 Mg Tablet 10 Mg PO DAILY Tylenol (Acetaminophen) 325 Mg Tablet 650 Mg PO PRN Q6HRS PRN Seroquel (Quetiapine Fumarate) 25 Mg Tablet 25 Mg PO QID Voltaren (Diclofenac Sodium) 100 Gm Gel..gram. 1 Beck TP BID Lorazepam 0.5 Mg Tablet 0.5 Mg PO TID PRN Melatin (Melatonin) 3 Mg Tablet 3 Mg PO QHS Metoprolol Succinate ( Xl ) (Metoprolol Succinate) 25 Mg Tab.er.24h 25 Mg PO BID Dilantin (Phenytoin Sodium Extended) 100 Mg Capsule 100 Mg PO BID Glucosamine Sulfate (Glucosamine Sulfate 2KCL) 1,000 Mg Tablet 1,000 Mg PO DAILY Aspirin 81 Mg Tab.chew 81 Mg PO DAILY Diagnosis: Problems: (1) Dementia with behavioral disturbance (2) Anxiety disorder (3) Dementia in Alzheimer's disease with delusions (4) Dementia in Alzheimer's disease with depression (5) Dementia, vascular, with delusions (6) Dementia, vascular, with depression (7) Impulse control disorder NAKIA KO MD Oct 28, 2016 19:58
--- NOTE | 2016-10-29 02:46 | PN ---
DATE: 10/27/2016 This late entry 10/27/2016 covers elements not covered in my initial note of 10/27/2016. I met with the patient in the evening of 10/27/2016. I had been called by the nursing staff earlier in the day on 10/27/2016 after the patient had a possible syncopal episode and was passed out. Rapid response was called, she came to it. We held her Seroquel later. She has been anxious more so when there are lot of visitors. Vasovagal was at 1555 on 10/27/2016. Held Seroquel 10/27/2016 at 1800. REVIEW OF SYSTEMS: No CV, , pulmonary, eye, ENT system symptoms on review. Reliability poor. MENTAL STATUS EXAM: Oriented to herself. Insight, judgment, recent and remote memory, attention, concentration, fund of knowledge poor, consistent with her diagnosis mentioned in my initial note. PLAN: Continue current psychotropics mentioned in my initial note. Review drug interactions, risk/benefit ratio favors no further change at this time. MAN Leandro KO MD DR: [email or web address]/luz JOB#: [id number] / [id number]
[2016-10-29 06:00] VITALS: BP 153/74
[2016-10-29 06:49] LABS: ALBUMIN/GLOBULIN RATIO 1.1 (1.0-1.7); ALK PHOS 113 U/L (46-116); ALT (SGPT) 26 U/L (14-59); ANION GAP 4 (6-14); AST (SGOT) 24 U/L (15-37); BLOOD UREA NITROGEN 16 mg/dL (7-20); BUN/CREATININE RATIO 18 (6-20); CALCIUM 8.2 mg/dL (8.5-10.1); CARBON DIOXIDE 31 mmol/L (21-32); CHLORIDE 108 mmol/L (98-107); CREATININE 0.9 mg/dL (0.6-1.0); GFR 59.5; GLUCOSE 82 mg/dL (70-99); SODIUM 143 mmol/L (136-145); TOTAL BILIRUBIN 0.3 mg/dL (0.2-1.0); TOTAL PROTEIN 5.8 g/dL (6.4-8.2)
[2016-10-29 06:50] LABS: BASO % 0 % (0-3); EOS # 0.3 x10^3/uL (0.0-0.7); EOS % 7 % (0-3); HEMATOCRIT 31.7 % (36.0-47.0); HEMOGLOBIN 10.5 g/dL (12.0-15.5); LYMPH % 27 % (24-48); MEAN CORPUSCULAR HEMOGLOBIN 31 pg (25-35); MEAN CORPUSCULAR HGB CONC 33 g/dL (31-37); MEAN CORPUSCULAR VOLUME 92 fL (79-100); MONO # 0.4 x10^3/uL (0.0-1.1); MONO % 10 % (0-9); NEUT % 55 % (31-73); PLATELET COUNT 181 x10^3/uL (140-400); RED BLOOD COUNT 3.44 x10^6/uL (3.50-5.40); WHITE BLOOD COUNT 3.6 x10^3/uL (4.0-11.0)
[2016-10-29 07:02] LABS: VAL ACID 39 mcg/mL (50-100)
[2016-10-29] MEDS: PHENYTOIN SODIUM EXTENDED 100 MG CAPSULE PO SCH ×2 (08:30→19:27)
[2016-10-29] MEDS: CHOLECALCIFEROL (VITAMIN D3) 1,000 UNIT TABLET PO SCH (08:30)
[2016-10-29] MEDS: QUEtiapine 25 MG TABLET. PO SCH ×4 (08:30→19:28)
[2016-10-29] MEDS: CETIRIZINE HCL 10 MG TABLET PO SCH (08:31)
[2016-10-29] MEDS: SERTRALINE 50 MG TABLET. PO SCH (08:31)
[2016-10-29] MEDS: CYANOCOBALAMIN (VITAMIN B-12) 250 MCG TABLET PO SCH (08:31)
[2016-10-29] MEDS: POTASSIUM CHLORIDE 20 MEQ TABLET.ER. PO SCH ×2 (08:32→19:27)
[2016-10-29] MEDS: busPIRone 5 MG TABLET. PO SCH ×4 (08:32→19:28)
[2016-10-29] MEDS: DIVALPROEX 125 MG CAP.SPRINK PO SCH ×4 (08:32→19:28)
[2016-10-29] MEDS: ASPIRIN 81 MG TAB.CHEW PO SCH (08:32)
[2016-10-29] MEDS: GLUCOSAMINE 500 MG CAPSULE PO SCH (08:32)
[2016-10-29] MEDS: DICLOFENAC SODIUM 1% TOPICAL GEL 100GM TUBE. TP SCH ×2 (08:33→19:40)
[2016-10-29] MEDS: POLYVINYL ALCOHOL 1.4% OPHTH SOLUTION 15ML BOTTLE. OU SCH ×3 (08:33→19:40)
[2016-10-29 16:13] VITALS: BP 150/58
--- NOTE | 2016-10-29 18:53 | PDOC ---
Exam Dane Demential Exam: Dane Note: Please also refer to the separate dictated note~for this date of service dictated separately.~Patient seen individually. Discussed the patient with Nursing staff reviewed the chart.~Reviewed interim history and current functioning. Reviewed vital signs,~Labs/ Radiology~and current medications noted below. Continue current treatment with the changes noted in the dictated addendum note Assessment: Vital Signs: Vital Signs Date Time Temp Pulse Resp B/P (MAP) Pulse Ox O2 Delivery O2 Flow Rate FiO2 10/29/16 16:13 98.4 89 18 150/58 (88) 99 10/29/16 06:00 Room Air I&O Intake and Output 10/29/16 07:00 Intake Total 720 ml Balance 720 ml Intake Oral 720 ml Labs: Laboratory Tests Test 10/29/16 06:24 White Blood Count 3.6 x10^3/uL (4.0-11.0) L Red Blood Count 3.44 x10^6/uL (3.50-5.40) L Hemoglobin 10.5 g/dL (12.0-15.5) L Hematocrit 31.7 % (36.0-47.0) L Mean Corpuscular Volume 92 fL (79-100) Mean Corpuscular Hemoglobin 31 pg (25-35) Mean Corpuscular Hemoglobin Concent 33 g/dL (31-37) Red Cell Distribution Width 15.0 % (11.5-14.5) H Platelet Count 181 x10^3/uL (140-400) Neutrophils (%) (Auto) 55 % (31-73) Lymphocytes (%) (Auto) 27 % (24-48) Monocytes (%) (Auto) 10 % (0-9) H Eosinophils (%) (Auto) 7 % (0-3) H Basophils (%) (Auto) 0 % (0-3) Neutrophils # (Auto) 2.0 x10^3uL (1.8-7.7) Lymphocytes # (Auto) 1.0 x10^3/uL (1.0-4.8) Monocytes # (Auto) 0.4 x10^3/uL (0.0-1.1) Eosinophils # (Auto) 0.3 x10^3/uL (0.0-0.7) Basophils # (Auto) 0.0 x10^3/uL (0.0-0.2) Sodium Level 143 mmol/L (136-145) Potassium Level 4.0 mmol/L (3.5-5.1) Chloride Level 108 mmol/L (98-107) H Carbon Dioxide Level 31 mmol/L (21-32) Anion Gap 4 (6-14) L Blood Urea Nitrogen 16 mg/dL (7-20) Creatinine 0.9 mg/dL (0.6-1.0) Estimated GFR (Cockcroft-Gault) 59.5 BUN/Creatinine Ratio 18 (6-20) Glucose Level 82 mg/dL (70-99) Calcium Level 8.2 mg/dL (8.5-10.1) L Total Bilirubin 0.3 mg/dL (0.2-1.0) Aspartate Amino Transferase (AST) 24 U/L (15-37) Alanine Aminotransferase (ALT) 26 U/L (14-59) Alkaline Phosphatase 113 U/L (46-116) Total Protein 5.8 g/dL (6.4-8.2) L Albumin 3.0 g/dL (3.4-5.0) L Albumin/Globulin Ratio 1.1 (1.0-1.7) Valproic Acid Level 39 mcg/mL (50-100) L Valproic Acid Last Dose Date 10/28/2016 Valproic Acid Last Dose Time 2100 Current Medications: Meds: Current Medications Lorazepam (Ativan) 2 mg 1X ONCE IM Last administered on 10/18/16 20:13; Start 10/18/16 at 20:00; Stop 10/18/16 at 20:01; Status DC Haloperidol Lactate (Haldol) 5 mg 1X ONCE IM Last administered on 10/18/16 20 :13; Start 10/18/16 at 20:00; Stop 10/18/16 at 20:02; Status DC Lorazepam (Ativan) 2 mg 1X ONCE IV ; Start 10/18/16 at 20:00; Stop 10/18/16 at 20:02; Status DC Haloperidol Lactate (Haldol) 5 mg 1X ONCE IM ; Start 10/18/16 at 20:00; Stop at 20:02; Status DC Buspirone HCl (Buspar) 5 mg QID PO Last administered on 10/29/16 17:01; Start 10/19/16 at 09:00 Divalproex Sodium (Depakote Sprinkles) 125 mg [id number] PO Last administered on 17:07; Start 10/19/16 at 09:00; Stop 10/22/16 at 18:19; Status DC Lorazepam (Ativan) 0.5 mg PRN TID PRN PO ANXIETY / AGITATION Last administered on 10/28/16 19:47; Start 10/18/16 at 23:00 Olanzapine (ZyPREXA ZYDIS) 2.5 mg PRN Q4HRS PRN PO PSYCHOSIS Last administered on 10/27/16 13:11; Start 10/18/16 at 23:00 Quetiapine Fumarate (SEROquel) 25 mg QID PO Last administered on 10/23/16 17: 11; Start 10/19/16 at 09:00; Stop 10/23/16 at 18:39; Status DC Sertraline HCl (Zoloft) 75 mg DAILY PO Last administered on 10/29/16 08:31; Start 10/19/16 at 09:00 Trazodone HCl (Desyrel) 25 mg PRN QHS PRN PO INSOMNIA Last administered on 10/26 20:08; Start 10/18/16 at 23:00 Melatonin 3 mg QHS PO Last administered on 10/28/16 19:48; Start 10/18/16 at 23:00 Pneumococcal Polyvalent Vaccine (Pneumovax 23) 0.5 ml ONCE ONCE VAX IM ; Start 10/19/16 at 09:00; Stop 10/19/16 at 09:02; Status DC Acetaminophen (Tylenol) 650 mg PRN Q6HRS PRN PO PAIN / TEMP; Start 10/19/16 at 06:15 Aspirin (Children'S Aspirin) 81 mg DAILY PO Last administered on 10/29/16 08: 32; Start 10/19/16 at 09:00 Cetirizine HCl (ZyrTEC) 10 mg DAILY PO Last administered on 10/29/16 08:31; Start 10/19/16 at 09:00 Cyanocobalamin (Vitamin B-12) 250 mcg DAILY PO Last administered on 10/29/16 08:31; Start 10/19/16 at 09:00 Diclofenac Sodium (Voltaren) 1 beck BID TP Last administered on 10/29/16 08:33 ; Start 10/19/16 at 09:00 Al Hydroxide/Mg Hydroxide (Mylanta Plus Xs) 15 ml PRN AFTMEALHC PRN PO DYSPEPSIA; Start 10/19/16 at 06:15 Multi-Ingredient Ointment (Analgesic [place]) 1 beck PRN QID PRN TP MUSCLE PAIN; Start 10/19/16 at 06:15 Metoprolol Succinate (Toprol Xl) 25 mg BID PO Last administered on 10/20/16 08 :37; Start 10/19/16 at 09:00; Stop 10/20/16 at 16:35; Status DC Phenytoin Sodium (Dilantin) 100 mg BID PO Last administered on 10/29/16 08:30 ; Start 10/19/16 at 09:00 Potassium Chloride (Klor-Con) 20 meq BID PO Last administered on 10/29/16 08: 32; Start 10/19/16 at 09:00 Vitamin D (Vitamin D3) 5,000 unit DAILY PO Last administered on 10/29/16 08:30 ; Start 10/19/16 at 09:00 Artificial Tears (Artificial Tears) 1 drop TID OU Last administered on 08:33; Start 10/19/16 at 09:00 Glucosamine Sulfate (Glucosamine) 1,000 mg DAILY PO Last administered on 08:32; Start 10/19/16 at 09:00 Magnesium Hydroxide (Milk Of Magnesia) 2,400 mg PRN QHS PRN PO CONSTIPATION; Start 10/19/16 at 07:15 Artificial Tears (Artificial Tears) 1 drop PRN Q15MIN PRN OU DRY EYE; Start 02/23 at 20:00 Divalproex Sodium (Depakote Sprinkles) 125 mg BID@1300,1700 PO Last administered on 10/25/16 16:56; Start 10/23/16 at 13:00; Stop 10/25/16 at 18:33 ; Status DC Divalproex Sodium (Depakote Sprinkles) 250 mg BID@0900,2100 PO Last administered on 10/25/16 07:27; Start 10/22/16 at 21:00; Stop 10/25/16 at 18:33 ; Status DC Quetiapine Fumarate (SEROquel) 37.5 mg BID@0900,1800 PO Last administered on 17:08; Start 10/24/16 at 09:00 Quetiapine Fumarate (SEROquel) 25 mg BID@1400,2100 PO Last administered on 10/29 13:26; Start 10/23/16 at 21:00 Divalproex Sodium (Depakote Sprinkles) 250 mg QID PO Last administered on 17:01; Start 10/25/16 at 21:00 Active Scripts Active Reported Buspirone Hcl 5 Mg Tablet 5 Mg PO QID Trazodone Hcl 50 Mg Tablet 25 Mg PO PRN QHS PRN Zoloft (Sertraline Hcl) 50 Mg Tablet 75 Mg PO DAILY Klor-Con M20 (Potassium Chloride) 20 Meq Tab.er.prt 20 Meq PO BID Artificial Tears Eye Drops (Dextran 70/Hypromellose) 15 Ml Drops 1 Drp OU TID Olanzapine Odt (Olanzapine) 5 Mg Tab.rapdis 2.5 Mg PO PRN Q4HRS PRN Analgesic [place] (Methyl Salicylate/Menthol) 28 Gm Oint...g. 1 Beck TP PRN QID PRN Maalox Maximum Strength Susp (Mag Hydrox/Al Hydrox/Simeth) 355 Ml Oral.susp 15 Ml PO PRN AFTMEALHC PRN Milk Of Magnesia (Magnesium Hydroxide) 2,400 Mg/10 Ml Oral.susp 2,400 Mg PO PRN QHS PRN Depakote Sprinkle (Divalproex Sodium) 125 Mg Cap.sprink 125 Mg PO [id number] Vitamin B-12 (Cyanocobalamin (Vitamin B-12)) 1,000 Mcg Tablet 250 Mcg PO DAILY Vitamin D3 (Cholecalciferol (Vitamin D3)) 5,000 Unit Tablet 5,000 Unit PO WEEKLY Cetirizine Hcl 10 Mg Tablet 10 Mg PO DAILY Tylenol (Acetaminophen) 325 Mg Tablet 650 Mg PO PRN Q6HRS PRN Seroquel (Quetiapine Fumarate) 25 Mg Tablet 25 Mg PO QID Voltaren (Diclofenac Sodium) 100 Gm Gel..gram. 1 Beck TP BID Lorazepam 0.5 Mg Tablet 0.5 Mg PO TID PRN Melatin (Melatonin) 3 Mg Tablet 3 Mg PO QHS Metoprolol Succinate ( Xl ) (Metoprolol Succinate) 25 Mg Tab.er.24h 25 Mg PO BID Dilantin (Phenytoin Sodium Extended) 100 Mg Capsule 100 Mg PO BID Glucosamine Sulfate (Glucosamine Sulfate 2KCL) 1,000 Mg Tablet 1,000 Mg PO DAILY Aspirin 81 Mg Tab.chew 81 Mg PO DAILY Diagnosis: Problems: (1) Impulse control disorder (2) Dementia, vascular, with depression (3) Dementia, vascular, with delusions (4) Dementia in Alzheimer's disease with depression (5) Dementia in Alzheimer's disease with delusions (6) Anxiety disorder (7) Dementia with behavioral disturbance NAKIA KO MD Oct 29, 2016 18:53
[2016-10-29] MEDS: MELATONIN 3 MG TABLET PO SCH (19:28)
--- NOTE | 2016-10-30 04:19 | PN ---
DATE: 10/28/2016 This is a late entry for 10/28/2016 and covers the elements not covered in my initial note. SUBJECTIVE: I met with the patient the evening of 10/28/2016. She is quite confused, wanders the hallways, paranoid, delusional, "where is the gun, who has got the gun." She was quite anxious the morning of 10/28/2016. REVIEW OF SYSTEMS: No CV, , pulmonary, eye, ENT system symptoms on review. Reliability poor. MENTAL STATUS EXAM: Oriented to herself, distractible, following me around the unit even after I met with her. Insight, judgment, recent and remote memory, attention, concentration, fund of knowledge poor, consistent with her diagnosis mentioned in my initial note. PLAN: Continue current psychotropics. We initiated the Seroquel. I do not want to increase it any further due to her vasovagal attack and age, reviewed drug interactions, risk/benefit ratio favors no further changes now. NAKIA KO MD DR: LUCRECIA/luz JOB#: [id number] / [id number]
[2016-10-30] MEDS: LORazepam 0.5 MG TABLET PO PRN (05:39)
[2016-10-30 06:28] VITALS: BP 123/65
[2016-10-30] MEDS: POLYVINYL ALCOHOL 1.4% OPHTH SOLUTION 15ML BOTTLE. OU SCH ×3 (09:00→19:40)
[2016-10-30] MEDS: DICLOFENAC SODIUM 1% TOPICAL GEL 100GM TUBE. TP SCH ×2 (09:00→19:40)
[2016-10-30] MEDS: SERTRALINE 50 MG TABLET. PO SCH (09:30)
[2016-10-30] MEDS: PHENYTOIN SODIUM EXTENDED 100 MG CAPSULE PO SCH ×2 (09:30→19:43)
[2016-10-30] MEDS: DIVALPROEX 125 MG CAP.SPRINK PO SCH ×4 (09:30→19:43)
[2016-10-30] MEDS: busPIRone 5 MG TABLET. PO SCH ×4 (09:31→19:40)
[2016-10-30] MEDS: QUEtiapine 25 MG TABLET. PO SCH ×4 (09:32→19:42)
[2016-10-30] MEDS: ASPIRIN 81 MG TAB.CHEW PO SCH (09:32)
[2016-10-30] MEDS: POTASSIUM CHLORIDE 20 MEQ TABLET.ER. PO SCH ×2 (09:32→19:42)
[2016-10-30] MEDS: CYANOCOBALAMIN (VITAMIN B-12) 250 MCG TABLET PO SCH (09:32)
[2016-10-30] MEDS: CETIRIZINE HCL 10 MG TABLET PO SCH (09:32)
[2016-10-30] MEDS: GLUCOSAMINE 500 MG CAPSULE PO SCH (09:33)
[2016-10-30] MEDS: CHOLECALCIFEROL (VITAMIN D3) 1,000 UNIT TABLET PO SCH (09:33)
[2016-10-30 16:33] VITALS: BP 113/65
--- NOTE | 2016-10-30 18:40 | PDOC ---
Exam Dane Demential Exam: Dane Note: Please also refer to the separate dictated note~for this date of service dictated separately.~Patient seen individually. Discussed the patient with Nursing staff reviewed the chart.~Reviewed interim history and current functioning. Reviewed vital signs,~Labs/ Radiology~and current medications noted below. Continue current treatment with the changes noted in the dictated addendum note Assessment: Vital Signs: Vital Signs Date Time Temp Pulse Resp B/P (MAP) Pulse Ox O2 Delivery O2 Flow Rate FiO2 10/30/16 16:33 97.7 88 20 113/65 (81) 99 10/29/16 06:00 Room Air I&O Intake and Output 10/30/16 07:00 Intake Total 900 ml Balance 900 ml Intake Oral 900 ml # Bowel Movements 1 Current Medications: Meds: Current Medications Lorazepam (Ativan) 2 mg 1X ONCE IM Last administered on 10/18/16 20:13; Start 10/18/16 at 20:00; Stop 10/18/16 at 20:01; Status DC Haloperidol Lactate (Haldol) 5 mg 1X ONCE IM Last administered on 10/18/16 20 :13; Start 10/18/16 at 20:00; Stop 10/18/16 at 20:02; Status DC Lorazepam (Ativan) 2 mg 1X ONCE IV ; Start 10/18/16 at 20:00; Stop 10/18/16 at 20:02; Status DC Haloperidol Lactate (Haldol) 5 mg 1X ONCE IM ; Start 10/18/16 at 20:00; Stop at 20:02; Status DC Buspirone HCl (Buspar) 5 mg QID PO Last administered on 10/30/16 17:26; Start 10/19/16 at 09:00 Divalproex Sodium (Depakote Sprinkles) 125 mg [id number] PO Last administered on 17:07; Start 10/19/16 at 09:00; Stop 10/22/16 at 18:19; Status DC Lorazepam (Ativan) 0.5 mg PRN TID PRN PO ANXIETY / AGITATION Last administered on 10/30/16 05:39; Start 10/18/16 at 23:00 Olanzapine (ZyPREXA ZYDIS) 2.5 mg PRN Q4HRS PRN PO PSYCHOSIS Last administered on 10/27/16 13:11; Start 10/18/16 at 23:00 Quetiapine Fumarate (SEROquel) 25 mg QID PO Last administered on 10/23/16 17: 11; Start 10/19/16 at 09:00; Stop 10/23/16 at 18:39; Status DC Sertraline HCl (Zoloft) 75 mg DAILY PO Last administered on 10/30/16 09:30; Start 10/19/16 at 09:00 Trazodone HCl (Desyrel) 25 mg PRN QHS PRN PO INSOMNIA Last administered on 10/26 20:08; Start 10/18/16 at 23:00 Melatonin 3 mg QHS PO Last administered on 10/29/16 19:28; Start 10/18/16 at 23:00 Pneumococcal Polyvalent Vaccine (Pneumovax 23) 0.5 ml ONCE ONCE VAX IM ; Start 10/19/16 at 09:00; Stop 10/19/16 at 09:02; Status DC Acetaminophen (Tylenol) 650 mg PRN Q6HRS PRN PO PAIN / TEMP; Start 10/19/16 at 06:15 Aspirin (Children'S Aspirin) 81 mg DAILY PO Last administered on 10/30/16 09: 32; Start 10/19/16 at 09:00 Cetirizine HCl (ZyrTEC) 10 mg DAILY PO Last administered on 10/30/16 09:32; Start 10/19/16 at 09:00 Cyanocobalamin (Vitamin B-12) 250 mcg DAILY PO Last administered on 10/30/16 09:32; Start 10/19/16 at 09:00 Diclofenac Sodium (Voltaren) 1 beck BID TP Last administered on 10/29/16 19:40 ; Start 10/19/16 at 09:00 Al Hydroxide/Mg Hydroxide (Mylanta Plus Xs) 15 ml PRN AFTMEALHC PRN PO DYSPEPSIA; Start 10/19/16 at 06:15 Multi-Ingredient Ointment (Analgesic [place]) 1 beck PRN QID PRN TP MUSCLE PAIN; Start 10/19/16 at 06:15 Metoprolol Succinate (Toprol Xl) 25 mg BID PO Last administered on 10/20/16 08 :37; Start 10/19/16 at 09:00; Stop 10/20/16 at 16:35; Status DC Phenytoin Sodium (Dilantin) 100 mg BID PO Last administered on 10/30/16 09:30 ; Start 10/19/16 at 09:00 Potassium Chloride (Klor-Con) 20 meq BID PO Last administered on 10/30/16 09: 32; Start 10/19/16 at 09:00 Vitamin D (Vitamin D3) 5,000 unit DAILY PO Last administered on 10/30/16 09:33 ; Start 10/19/16 at 09:00 Artificial Tears (Artificial Tears) 1 drop TID OU Last administered on 19:40; Start 10/19/16 at 09:00 Glucosamine Sulfate (Glucosamine) 1,000 mg DAILY PO Last administered on 09:33; Start 10/19/16 at 09:00 Magnesium Hydroxide (Milk Of Magnesia) 2,400 mg PRN QHS PRN PO CONSTIPATION; Start 10/19/16 at 07:15 Artificial Tears (Artificial Tears) 1 drop PRN Q15MIN PRN OU DRY EYE; Start 02/23 at 20:00 Divalproex Sodium (Depakote Sprinkles) 125 mg BID@1300,1700 PO Last administered on 10/25/16 16:56; Start 10/23/16 at 13:00; Stop 10/25/16 at 18:33 ; Status DC Divalproex Sodium (Depakote Sprinkles) 250 mg BID@0900,2100 PO Last administered on 10/25/16 07:27; Start 10/22/16 at 21:00; Stop 10/25/16 at 18:33 ; Status DC Quetiapine Fumarate (SEROquel) 37.5 mg BID@0900,1800 PO Last administered on 17:26; Start 10/24/16 at 09:00 Quetiapine Fumarate (SEROquel) 25 mg BID@1400,2100 PO Last administered on 10/30 15:02; Start 10/23/16 at 21:00 Divalproex Sodium (Depakote Sprinkles) 250 mg QID PO Last administered on 17:26; Start 10/25/16 at 21:00 Active Scripts Active Reported Buspirone Hcl 5 Mg Tablet 5 Mg PO QID Trazodone Hcl 50 Mg Tablet 25 Mg PO PRN QHS PRN Zoloft (Sertraline Hcl) 50 Mg Tablet 75 Mg PO DAILY Klor-Con M20 (Potassium Chloride) 20 Meq Tab.er.prt 20 Meq PO BID Artificial Tears Eye Drops (Dextran 70/Hypromellose) 15 Ml Drops 1 Drp OU TID Olanzapine Odt (Olanzapine) 5 Mg Tab.rapdis 2.5 Mg PO PRN Q4HRS PRN Analgesic [place] (Methyl Salicylate/Menthol) 28 Gm Oint...g. 1 Beck TP PRN QID PRN Maalox Maximum Strength Susp (Mag Hydrox/Al Hydrox/Simeth) 355 Ml Oral.susp 15 Ml PO PRN AFTMEALHC PRN Milk Of Magnesia (Magnesium Hydroxide) 2,400 Mg/10 Ml Oral.susp 2,400 Mg PO PRN QHS PRN Depakote Sprinkle (Divalproex Sodium) 125 Mg Cap.sprink 125 Mg PO [id number] Vitamin B-12 (Cyanocobalamin (Vitamin B-12)) 1,000 Mcg Tablet 250 Mcg PO DAILY Vitamin D3 (Cholecalciferol (Vitamin D3)) 5,000 Unit Tablet 5,000 Unit PO WEEKLY Cetirizine Hcl 10 Mg Tablet 10 Mg PO DAILY Tylenol (Acetaminophen) 325 Mg Tablet 650 Mg PO PRN Q6HRS PRN Seroquel (Quetiapine Fumarate) 25 Mg Tablet 25 Mg PO QID Voltaren (Diclofenac Sodium) 100 Gm Gel..gram. 1 Beck TP BID Lorazepam 0.5 Mg Tablet 0.5 Mg PO TID PRN Melatin (Melatonin) 3 Mg Tablet 3 Mg PO QHS Metoprolol Succinate ( Xl ) (Metoprolol Succinate) 25 Mg Tab.er.24h 25 Mg PO BID Dilantin (Phenytoin Sodium Extended) 100 Mg Capsule 100 Mg PO BID Glucosamine Sulfate (Glucosamine Sulfate 2KCL) 1,000 Mg Tablet 1,000 Mg PO DAILY Aspirin 81 Mg Tab.chew 81 Mg PO DAILY Diagnosis: Problems: (1) Impulse control disorder (2) Dementia, vascular, with depression (3) Dementia, vascular, with delusions (4) Dementia in Alzheimer's disease with depression (5) Dementia in Alzheimer's disease with delusions (6) Anxiety disorder (7) Dementia with behavioral disturbance NAKIA KO MD Oct 30, 2016 18:39
[2016-10-30] MEDS: MELATONIN 3 MG TABLET PO SCH (19:41)
[2016-10-30] MEDS: traZODone 50 MG TABLET. PO PRN (19:41)
--- NOTE | 2016-10-31 03:33 | PN ---
DATE: 10/29/2016 PSYCHIATRIC PROGRESS NOTE This is a late entry 10/29/2016, covers elements not covered in my initial note of 10/29/2016. I met with the patient in the evening of 10/29/2016. The patient had one episode of tearfulness in groups, talks in whispers, difficult to understand his speech. She was anxious, agitated, received Ativan p.r.n. Valproic acid level is 39, slightly subtherapeutic, but given her age clinically adequate for now. REVIEW OF SYSTEMS: No CV, , pulmonary, eye, ENT system symptoms on review. Reliability poor. MENTAL STATUS EXAM: Oriented to herself. Insight, judgment, recent and remote memory, attention, concentration, fund of knowledge poor, consistent with her diagnosis mentioned in my initial note. PLAN: Continue current psychotropics, reviewed drug interactions risk/benefit ratio favors no further changes as of now. We will reassess in the next day or so. NAKIA KO MD DR: LUCRECIA/luz JOB#: [id number] / [id number]
[2016-10-31 06:23] VITALS: BP 144/79
[2016-10-31] MEDS: SERTRALINE 50 MG TABLET. PO SCH (08:20)
[2016-10-31] MEDS: QUEtiapine 25 MG TABLET. PO SCH ×4 (08:21→19:35)
[2016-10-31] MEDS: busPIRone 5 MG TABLET. PO SCH ×4 (08:23→19:35)
[2016-10-31] MEDS: PHENYTOIN SODIUM EXTENDED 100 MG CAPSULE PO SCH ×2 (08:23→19:35)
[2016-10-31] MEDS: DIVALPROEX 125 MG CAP.SPRINK PO SCH ×4 (08:23→19:34)
[2016-10-31] MEDS: ASPIRIN 81 MG TAB.CHEW PO SCH (08:24)
[2016-10-31] MEDS: POTASSIUM CHLORIDE 20 MEQ TABLET.ER. PO SCH ×2 (08:24→19:35)
[2016-10-31] MEDS: CETIRIZINE HCL 10 MG TABLET PO SCH (08:24)
[2016-10-31] MEDS: POLYVINYL ALCOHOL 1.4% OPHTH SOLUTION 15ML BOTTLE. OU SCH ×3 (08:24→19:36)
[2016-10-31] MEDS: CHOLECALCIFEROL (VITAMIN D3) 1,000 UNIT TABLET PO SCH (08:24)
[2016-10-31] MEDS: CYANOCOBALAMIN (VITAMIN B-12) 250 MCG TABLET PO SCH (08:24)
[2016-10-31] MEDS: GLUCOSAMINE 500 MG CAPSULE PO SCH (08:24)
[2016-10-31] MEDS: DICLOFENAC SODIUM 1% TOPICAL GEL 100GM TUBE. TP SCH ×2 (08:25→19:36)
[2016-10-31 16:18] VITALS: BP 145/68
[2016-10-31] MEDS: MELATONIN 3 MG TABLET PO SCH (19:35)
--- NOTE | 2016-10-31 20:49 | PDOC ---
Exam Dane Demential Exam: Dane Note: Please also refer to the separate dictated note~for this date of service dictated separately.~Patient seen individually. Discussed the patient with Nursing staff reviewed the chart.~Reviewed interim history and current functioning. Reviewed vital signs,~Labs/ Radiology~and current medications noted below. Continue current treatment with the changes noted in the dictated addendum note Assessment: Vital Signs: Vital Signs Date Time Temp Pulse Resp B/P (MAP) Pulse Ox O2 Delivery O2 Flow Rate FiO2 10/31/16 16:18 97.7 72 20 145/68 (93) 97 10/29/16 06:00 Room Air I&O Intake and Output 10/31/16 07:00 Intake Total 600 ml Balance 600 ml Intake Oral 600 ml # Voids 1 # Bowel Movements 1 Current Medications: Meds: Current Medications Lorazepam (Ativan) 2 mg 1X ONCE IM Last administered on 10/18/16 20:13; Start 10/18/16 at 20:00; Stop 10/18/16 at 20:01; Status DC Haloperidol Lactate (Haldol) 5 mg 1X ONCE IM Last administered on 10/18/16 20 :13; Start 10/18/16 at 20:00; Stop 10/18/16 at 20:02; Status DC Lorazepam (Ativan) 2 mg 1X ONCE IV ; Start 10/18/16 at 20:00; Stop 10/18/16 at 20:02; Status DC Haloperidol Lactate (Haldol) 5 mg 1X ONCE IM ; Start 10/18/16 at 20:00; Stop at 20:02; Status DC Buspirone HCl (Buspar) 5 mg QID PO Last administered on 10/31/16 19:35; Start 10/19/16 at 09:00 Divalproex Sodium (Depakote Sprinkles) 125 mg [id number] PO Last administered on 17:07; Start 10/19/16 at 09:00; Stop 10/22/16 at 18:19; Status DC Lorazepam (Ativan) 0.5 mg PRN TID PRN PO ANXIETY / AGITATION Last administered on 10/30/16 05:39; Start 10/18/16 at 23:00 Olanzapine (ZyPREXA ZYDIS) 2.5 mg PRN Q4HRS PRN PO PSYCHOSIS Last administered on 10/27/16 13:11; Start 10/18/16 at 23:00 Quetiapine Fumarate (SEROquel) 25 mg QID PO Last administered on 10/23/16 17: 11; Start 10/19/16 at 09:00; Stop 10/23/16 at 18:39; Status DC Sertraline HCl (Zoloft) 75 mg DAILY PO Last administered on 10/31/16 08:20; Start 10/19/16 at 09:00 Trazodone HCl (Desyrel) 25 mg PRN QHS PRN PO INSOMNIA Last administered on 10/30 19:41; Start 10/18/16 at 23:00 Melatonin 3 mg QHS PO Last administered on 10/31/16 19:35; Start 10/18/16 at 23:00 Pneumococcal Polyvalent Vaccine (Pneumovax 23) 0.5 ml ONCE ONCE VAX IM ; Start 10/19/16 at 09:00; Stop 10/19/16 at 09:02; Status DC Acetaminophen (Tylenol) 650 mg PRN Q6HRS PRN PO PAIN / TEMP; Start 10/19/16 at 06:15 Aspirin (Children'S Aspirin) 81 mg DAILY PO Last administered on 10/31/16 08: 24; Start 10/19/16 at 09:00 Cetirizine HCl (ZyrTEC) 10 mg DAILY PO Last administered on 10/31/16 08:24; Start 10/19/16 at 09:00 Cyanocobalamin (Vitamin B-12) 250 mcg DAILY PO Last administered on 10/31/16 08:24; Start 10/19/16 at 09:00 Diclofenac Sodium (Voltaren) 1 beck BID TP Last administered on 10/31/16 19:36 ; Start 10/19/16 at 09:00 Al Hydroxide/Mg Hydroxide (Mylanta Plus Xs) 15 ml PRN AFTMEALHC PRN PO DYSPEPSIA; Start 10/19/16 at 06:15 Multi-Ingredient Ointment (Analgesic [place]) 1 beck PRN QID PRN TP MUSCLE PAIN; Start 10/19/16 at 06:15 Metoprolol Succinate (Toprol Xl) 25 mg BID PO Last administered on 10/20/16 08 :37; Start 10/19/16 at 09:00; Stop 10/20/16 at 16:35; Status DC Phenytoin Sodium (Dilantin) 100 mg BID PO Last administered on 10/31/16 19:35 ; Start 10/19/16 at 09:00 Potassium Chloride (Klor-Con) 20 meq BID PO Last administered on 10/31/16 19: 35; Start 10/19/16 at 09:00 Vitamin D (Vitamin D3) 5,000 unit DAILY PO Last administered on 10/31/16 08:24 ; Start 10/19/16 at 09:00 Artificial Tears (Artificial Tears) 1 drop TID OU Last administered on 19:36; Start 10/19/16 at 09:00 Glucosamine Sulfate (Glucosamine) 1,000 mg DAILY PO Last administered on 08:24; Start 10/19/16 at 09:00 Magnesium Hydroxide (Milk Of Magnesia) 2,400 mg PRN QHS PRN PO CONSTIPATION; Start 10/19/16 at 07:15 Artificial Tears (Artificial Tears) 1 drop PRN Q15MIN PRN OU DRY EYE; Start 02/23 at 20:00 Divalproex Sodium (Depakote Sprinkles) 125 mg BID@1300,1700 PO Last administered on 10/25/16 16:56; Start 10/23/16 at 13:00; Stop 10/25/16 at 18:33 ; Status DC Divalproex Sodium (Depakote Sprinkles) 250 mg BID@0900,2100 PO Last administered on 10/25/16 07:27; Start 10/22/16 at 21:00; Stop 10/25/16 at 18:33 ; Status DC Quetiapine Fumarate (SEROquel) 37.5 mg BID@0900,1800 PO Last administered on 17:12; Start 10/24/16 at 09:00 Quetiapine Fumarate (SEROquel) 25 mg BID@1400,2100 PO Last administered on 10/31 19:35; Start 10/23/16 at 21:00 Divalproex Sodium (Depakote Sprinkles) 250 mg QID PO Last administered on 19:34; Start 10/25/16 at 21:00 Active Scripts Active Reported Buspirone Hcl 5 Mg Tablet 5 Mg PO QID Trazodone Hcl 50 Mg Tablet 25 Mg PO PRN QHS PRN Zoloft (Sertraline Hcl) 50 Mg Tablet 75 Mg PO DAILY Klor-Con M20 (Potassium Chloride) 20 Meq Tab.er.prt 20 Meq PO BID Artificial Tears Eye Drops (Dextran 70/Hypromellose) 15 Ml Drops 1 Drp OU TID Olanzapine Odt (Olanzapine) 5 Mg Tab.rapdis 2.5 Mg PO PRN Q4HRS PRN Analgesic [place] (Methyl Salicylate/Menthol) 28 Gm Oint...g. 1 Beck TP PRN QID PRN Maalox Maximum Strength Susp (Mag Hydrox/Al Hydrox/Simeth) 355 Ml Oral.susp 15 Ml PO PRN AFTMEALHC PRN Milk Of Magnesia (Magnesium Hydroxide) 2,400 Mg/10 Ml Oral.susp 2,400 Mg PO PRN QHS PRN Depakote Sprinkle (Divalproex Sodium) 125 Mg Cap.sprink 125 Mg PO [id number] Vitamin B-12 (Cyanocobalamin (Vitamin B-12)) 1,000 Mcg Tablet 250 Mcg PO DAILY Vitamin D3 (Cholecalciferol (Vitamin D3)) 5,000 Unit Tablet 5,000 Unit PO WEEKLY Cetirizine Hcl 10 Mg Tablet 10 Mg PO DAILY Tylenol (Acetaminophen) 325 Mg Tablet 650 Mg PO PRN Q6HRS PRN Seroquel (Quetiapine Fumarate) 25 Mg Tablet 25 Mg PO QID Voltaren (Diclofenac Sodium) 100 Gm Gel..gram. 1 Beck TP BID Lorazepam 0.5 Mg Tablet 0.5 Mg PO TID PRN Melatin (Melatonin) 3 Mg Tablet 3 Mg PO QHS Metoprolol Succinate ( Xl ) (Metoprolol Succinate) 25 Mg Tab.er.24h 25 Mg PO BID Dilantin (Phenytoin Sodium Extended) 100 Mg Capsule 100 Mg PO BID Glucosamine Sulfate (Glucosamine Sulfate 2KCL) 1,000 Mg Tablet 1,000 Mg PO DAILY Aspirin 81 Mg Tab.chew 81 Mg PO DAILY Diagnosis: Problems: (1) Dementia with behavioral disturbance (2) Anxiety disorder (3) Dementia in Alzheimer's disease with delusions (4) Dementia in Alzheimer's disease with depression (5) Dementia, vascular, with delusions (6) Dementia, vascular, with depression (7) Impulse control disorder NAKIA KO MD Oct 31, 2016 20:49
--- NOTE | 2016-11-01 01:18 | PN ---
DATE: 10/30/2016 This late entry for 10/30/2016 covers elements not covered in my initial note of 10/30/2016. SUBJECTIVE: I met with the patient in the evening of 10/30/2016. The patient has had episodes of tearfulness, anxiety with increased stimuli around her, compliant with her medications, took her meds at dinnertime. REVIEW OF SYSTEMS: No CV, , pulmonary, eye, ENT system symptoms on review. Reliability poor. MENTAL STATUS EXAM: Oriented to herself. Insight, judgment, recent and remote memory, attention, concentration, fund of knowledge poor, consistent with her diagnosis mentioned in my initial note. LABORATORY DATA: Reviewed. IMPRESSION: Unchanged from initial note. PLAN: Continue current psychotropics. Reviewed drug interactions. Risk/benefit ratio favors no further changes of now, but we may need to increase Seroquel if mood lability persist, but she had a vasovagal attack with low blood pressure in the last few days and I will have to be very careful as we adjust the Seroquel. NAKIA KO MD DR: [email or web address] JOB#: [id number] / [id number]
[2016-11-01 06:08] VITALS: BP 150/70
[2016-11-01] MEDS: PHENYTOIN SODIUM EXTENDED 100 MG CAPSULE PO SCH ×2 (08:28→19:38)
[2016-11-01] MEDS: SERTRALINE 50 MG TABLET. PO SCH (08:30)
[2016-11-01] MEDS: DIVALPROEX 125 MG CAP.SPRINK PO SCH ×4 (08:30→19:38)
[2016-11-01] MEDS: busPIRone 5 MG TABLET. PO SCH ×4 (08:31→19:37)
[2016-11-01] MEDS: CETIRIZINE HCL 10 MG TABLET PO SCH (08:31)
[2016-11-01] MEDS: QUEtiapine 25 MG TABLET. PO SCH ×4 (08:31→19:39)
[2016-11-01] MEDS: CHOLECALCIFEROL (VITAMIN D3) 1,000 UNIT TABLET PO SCH (08:31)
[2016-11-01] MEDS: CYANOCOBALAMIN (VITAMIN B-12) 250 MCG TABLET PO SCH (08:31)
[2016-11-01] MEDS: POTASSIUM CHLORIDE 20 MEQ TABLET.ER. PO SCH ×2 (08:31→19:38)
[2016-11-01] MEDS: ASPIRIN 81 MG TAB.CHEW PO SCH (08:31)
[2016-11-01] MEDS: POLYVINYL ALCOHOL 1.4% OPHTH SOLUTION 15ML BOTTLE. OU SCH ×3 (08:32→19:39)
[2016-11-01] MEDS: DICLOFENAC SODIUM 1% TOPICAL GEL 100GM TUBE. TP SCH ×2 (08:32→19:39)
[2016-11-01] MEDS: GLUCOSAMINE 500 MG CAPSULE PO SCH (08:32)
--- NOTE | 2016-11-01 10:22 | PDOC ---
Exam Dane Demential Exam: Dane Note: Please also refer to the separate dictated note~for this date of service dictated separately.~Patient seen individually. Discussed the patient with Nursing staff reviewed the chart.~Reviewed interim history and current functioning. Reviewed vital signs,~Labs/ Radiology~and current medications noted below. Continue current treatment with the changes noted in the dictated addendum note Assessment: Vital Signs: Vital Signs Date Time Temp Pulse Resp B/P (MAP) Pulse Ox O2 Delivery O2 Flow Rate FiO2 11/01/16 06:08 98.8 74 18 150/70 (96) 99 10/29/16 06:00 Room Air I&O Intake and Output 11/01/16 06:59 Intake Total 1080 ml Balance 1080 ml Intake Oral 1080 ml # Bowel Movements 1 Current Medications: Meds: Current Medications Lorazepam (Ativan) 2 mg 1X ONCE IM Last administered on 10/18/16 20:13; Start 10/18/16 at 20:00; Stop 10/18/16 at 20:01; Status DC Haloperidol Lactate (Haldol) 5 mg 1X ONCE IM Last administered on 10/18/16 20 :13; Start 10/18/16 at 20:00; Stop 10/18/16 at 20:02; Status DC Lorazepam (Ativan) 2 mg 1X ONCE IV ; Start 10/18/16 at 20:00; Stop 10/18/16 at 20:02; Status DC Haloperidol Lactate (Haldol) 5 mg 1X ONCE IM ; Start 10/18/16 at 20:00; Stop at 20:02; Status DC Buspirone HCl (Buspar) 5 mg QID PO Last administered on 11/01/16 08:31; Start 10/19/16 at 09:00 Divalproex Sodium (Depakote Sprinkles) 125 mg [id number] PO Last administered on 17:07; Start 10/19/16 at 09:00; Stop 10/22/16 at 18:19; Status DC Lorazepam (Ativan) 0.5 mg PRN TID PRN PO ANXIETY / AGITATION Last administered on 10/30/16 05:39; Start 10/18/16 at 23:00 Olanzapine (ZyPREXA ZYDIS) 2.5 mg PRN Q4HRS PRN PO PSYCHOSIS Last administered on 10/27/16 13:11; Start 10/18/16 at 23:00 Quetiapine Fumarate (SEROquel) 25 mg QID PO Last administered on 10/23/16 17: 11; Start 10/19/16 at 09:00; Stop 10/23/16 at 18:39; Status DC Sertraline HCl (Zoloft) 75 mg DAILY PO Last administered on 11/01/16 08:30; Start 10/19/16 at 09:00 Trazodone HCl (Desyrel) 25 mg PRN QHS PRN PO INSOMNIA Last administered on 10/30 19:41; Start 10/18/16 at 23:00 Melatonin 3 mg QHS PO Last administered on 10/31/16 19:35; Start 10/18/16 at 23:00 Pneumococcal Polyvalent Vaccine (Pneumovax 23) 0.5 ml ONCE ONCE VAX IM ; Start 10/19/16 at 09:00; Stop 10/19/16 at 09:02; Status DC Acetaminophen (Tylenol) 650 mg PRN Q6HRS PRN PO PAIN / TEMP; Start 10/19/16 at 06:15 Aspirin (Children'S Aspirin) 81 mg DAILY PO Last administered on 11/01/16 08: 31; Start 10/19/16 at 09:00 Cetirizine HCl (ZyrTEC) 10 mg DAILY PO Last administered on 11/01/16 08:31; Start 10/19/16 at 09:00 Cyanocobalamin (Vitamin B-12) 250 mcg DAILY PO Last administered on 11/01/16 08:31; Start 10/19/16 at 09:00 Diclofenac Sodium (Voltaren) 1 beck BID TP Last administered on 10/31/16 19:36 ; Start 10/19/16 at 09:00 Al Hydroxide/Mg Hydroxide (Mylanta Plus Xs) 15 ml PRN AFTMEALHC PRN PO DYSPEPSIA; Start 10/19/16 at 06:15 Multi-Ingredient Ointment (Analgesic [place]) 1 beck PRN QID PRN TP MUSCLE PAIN; Start 10/19/16 at 06:15 Metoprolol Succinate (Toprol Xl) 25 mg BID PO Last administered on 10/20/16 08 :37; Start 10/19/16 at 09:00; Stop 10/20/16 at 16:35; Status DC Phenytoin Sodium (Dilantin) 100 mg BID PO Last administered on 11/01/16 08:28 ; Start 10/19/16 at 09:00 Potassium Chloride (Klor-Con) 20 meq BID PO Last administered on 11/01/16 08: 31; Start 10/19/16 at 09:00 Vitamin D (Vitamin D3) 5,000 unit DAILY PO Last administered on 11/01/16 08:31 ; Start 10/19/16 at 09:00 Artificial Tears (Artificial Tears) 1 drop TID OU Last administered on 19:36; Start 10/19/16 at 09:00 Glucosamine Sulfate (Glucosamine) 1,000 mg DAILY PO Last administered on 08:32; Start 10/19/16 at 09:00 Magnesium Hydroxide (Milk Of Magnesia) 2,400 mg PRN QHS PRN PO CONSTIPATION; Start 10/19/16 at 07:15 Artificial Tears (Artificial Tears) 1 drop PRN Q15MIN PRN OU DRY EYE; Start 02/23 at 20:00 Divalproex Sodium (Depakote Sprinkles) 125 mg BID@1300,1700 PO Last administered on 10/25/16 16:56; Start 10/23/16 at 13:00; Stop 10/25/16 at 18:33 ; Status DC Divalproex Sodium (Depakote Sprinkles) 250 mg BID@0900,2100 PO Last administered on 10/25/16 07:27; Start 10/22/16 at 21:00; Stop 10/25/16 at 18:33 ; Status DC Quetiapine Fumarate (SEROquel) 37.5 mg BID@0900,1800 PO Last administered on 08:31; Start 10/24/16 at 09:00 Quetiapine Fumarate (SEROquel) 25 mg BID@1400,2100 PO Last administered on 10/31 19:35; Start 10/23/16 at 21:00 Divalproex Sodium (Depakote Sprinkles) 250 mg QID PO Last administered on 08:30; Start 10/25/16 at 21:00 Active Scripts Active Reported Buspirone Hcl 5 Mg Tablet 5 Mg PO QID Trazodone Hcl 50 Mg Tablet 25 Mg PO PRN QHS PRN Zoloft (Sertraline Hcl) 50 Mg Tablet 75 Mg PO DAILY Klor-Con M20 (Potassium Chloride) 20 Meq Tab.er.prt 20 Meq PO BID Artificial Tears Eye Drops (Dextran 70/Hypromellose) 15 Ml Drops 1 Drp OU TID Olanzapine Odt (Olanzapine) 5 Mg Tab.rapdis 2.5 Mg PO PRN Q4HRS PRN Analgesic [place] (Methyl Salicylate/Menthol) 28 Gm Oint...g. 1 Beck TP PRN QID PRN Maalox Maximum Strength Susp (Mag Hydrox/Al Hydrox/Simeth) 355 Ml Oral.susp 15 Ml PO PRN AFTMEALHC PRN Milk Of Magnesia (Magnesium Hydroxide) 2,400 Mg/10 Ml Oral.susp 2,400 Mg PO PRN QHS PRN Depakote Sprinkle (Divalproex Sodium) 125 Mg Cap.sprink 125 Mg PO [id number] Vitamin B-12 (Cyanocobalamin (Vitamin B-12)) 1,000 Mcg Tablet 250 Mcg PO DAILY Vitamin D3 (Cholecalciferol (Vitamin D3)) 5,000 Unit Tablet 5,000 Unit PO WEEKLY Cetirizine Hcl 10 Mg Tablet 10 Mg PO DAILY Tylenol (Acetaminophen) 325 Mg Tablet 650 Mg PO PRN Q6HRS PRN Seroquel (Quetiapine Fumarate) 25 Mg Tablet 25 Mg PO QID Voltaren (Diclofenac Sodium) 100 Gm Gel..gram. 1 Beck TP BID Lorazepam 0.5 Mg Tablet 0.5 Mg PO TID PRN Melatin (Melatonin) 3 Mg Tablet 3 Mg PO QHS Metoprolol Succinate ( Xl ) (Metoprolol Succinate) 25 Mg Tab.er.24h 25 Mg PO BID Dilantin (Phenytoin Sodium Extended) 100 Mg Capsule 100 Mg PO BID Glucosamine Sulfate (Glucosamine Sulfate 2KCL) 1,000 Mg Tablet 1,000 Mg PO DAILY Aspirin 81 Mg Tab.chew 81 Mg PO DAILY Diagnosis: Problems: (1) Impulse control disorder (2) Dementia, vascular, with depression (3) Dementia, vascular, with delusions (4) Dementia in Alzheimer's disease with depression (5) Dementia in Alzheimer's disease with delusions (6) Anxiety disorder (7) Dementia with behavioral disturbance NAKIA OK MD Nov 01, 2016 10:22
[2016-11-01 15:59] VITALS: BP 97/52
[2016-11-01] MEDS: MELATONIN 3 MG TABLET PO SCH (19:38)
--- NOTE | 2016-11-01 20:00 | PDOC ---
Exam Dane Demential Exam: Dane Note: Please also refer to the separate dictated note~for this date of service dictated separately.~Patient seen individually. Discussed the patient with Nursing staff reviewed the chart.~Reviewed interim history and current functioning. Reviewed vital signs,~Labs/ Radiology~and current medications noted below. Continue current treatment with the changes noted in the dictated addendum note Assessment: Vital Signs: Vital Signs Date Time Temp Pulse Resp B/P (MAP) Pulse Ox O2 Delivery O2 Flow Rate FiO2 11/01/16 15:59 99.2 64 18 97/52 (67) 98 10/29/16 06:00 Room Air I&O Intake and Output 11/01/16 07:00 Intake Total 1080 ml Balance 1080 ml Intake Oral 1080 ml # Bowel Movements 1 Current Medications: Meds: Current Medications Lorazepam (Ativan) 2 mg 1X ONCE IM Last administered on 10/18/16 20:13; Start 10/18/16 at 20:00; Stop 10/18/16 at 20:01; Status DC Haloperidol Lactate (Haldol) 5 mg 1X ONCE IM Last administered on 10/18/16 20 :13; Start 10/18/16 at 20:00; Stop 10/18/16 at 20:02; Status DC Lorazepam (Ativan) 2 mg 1X ONCE IV ; Start 10/18/16 at 20:00; Stop 10/18/16 at 20:02; Status DC Haloperidol Lactate (Haldol) 5 mg 1X ONCE IM ; Start 10/18/16 at 20:00; Stop at 20:02; Status DC Buspirone HCl (Buspar) 5 mg QID PO Last administered on 11/01/16 13:19; Start 10/19/16 at 09:00; Stop 11/01/16 at 15:15; Status DC Divalproex Sodium (Depakote Sprinkles) 125 mg [id number] PO Last administered on 17:07; Start 10/19/16 at 09:00; Stop 10/22/16 at 18:19; Status DC Lorazepam (Ativan) 0.5 mg PRN TID PRN PO ANXIETY / AGITATION Last administered on 10/30/16 05:39; Start 10/18/16 at 23:00 Olanzapine (ZyPREXA ZYDIS) 2.5 mg PRN Q4HRS PRN PO PSYCHOSIS Last administered on 10/27/16 13:11; Start 10/18/16 at 23:00 Quetiapine Fumarate (SEROquel) 25 mg QID PO Last administered on 10/23/16 17: 11; Start 10/19/16 at 09:00; Stop 10/23/16 at 18:39; Status DC Sertraline HCl (Zoloft) 75 mg DAILY PO Last administered on 11/01/16 08:30; Start 10/19/16 at 09:00 Trazodone HCl (Desyrel) 25 mg PRN QHS PRN PO INSOMNIA Last administered on 10/30 19:41; Start 10/18/16 at 23:00 Melatonin 3 mg QHS PO Last administered on 11/01/16 19:38; Start 10/18/16 at 23:00 Pneumococcal Polyvalent Vaccine (Pneumovax 23) 0.5 ml ONCE ONCE VAX IM ; Start 10/19/16 at 09:00; Stop 10/19/16 at 09:02; Status DC Acetaminophen (Tylenol) 650 mg PRN Q6HRS PRN PO PAIN / TEMP; Start 10/19/16 at 06:15 Aspirin (Children'S Aspirin) 81 mg DAILY PO Last administered on 11/01/16 08: 31; Start 10/19/16 at 09:00 Cetirizine HCl (ZyrTEC) 10 mg DAILY PO Last administered on 11/01/16 08:31; Start 10/19/16 at 09:00 Cyanocobalamin (Vitamin B-12) 250 mcg DAILY PO Last administered on 11/01/16 08:31; Start 10/19/16 at 09:00 Diclofenac Sodium (Voltaren) 1 beck BID TP Last administered on 11/01/16 19:39 ; Start 10/19/16 at 09:00 Al Hydroxide/Mg Hydroxide (Mylanta Plus Xs) 15 ml PRN AFTMEALHC PRN PO DYSPEPSIA; Start 10/19/16 at 06:15 Multi-Ingredient Ointment (Analgesic [place]) 1 beck PRN QID PRN TP MUSCLE PAIN; Start 10/19/16 at 06:15 Metoprolol Succinate (Toprol Xl) 25 mg BID PO Last administered on 10/20/16 08 :37; Start 10/19/16 at 09:00; Stop 10/20/16 at 16:35; Status DC Phenytoin Sodium (Dilantin) 100 mg BID PO Last administered on 11/01/16 19:38 ; Start 10/19/16 at 09:00 Potassium Chloride (Klor-Con) 20 meq BID PO Last administered on 11/01/16 19: 38; Start 10/19/16 at 09:00 Vitamin D (Vitamin D3) 5,000 unit DAILY PO Last administered on 11/01/16 08:31 ; Start 10/19/16 at 09:00 Artificial Tears (Artificial Tears) 1 drop TID OU Last administered on 19:39; Start 10/19/16 at 09:00 Glucosamine Sulfate (Glucosamine) 1,000 mg DAILY PO Last administered on 08:32; Start 10/19/16 at 09:00 Magnesium Hydroxide (Milk Of Magnesia) 2,400 mg PRN QHS PRN PO CONSTIPATION; Start 10/19/16 at 07:15 Artificial Tears (Artificial Tears) 1 drop PRN Q15MIN PRN OU DRY EYE; Start 02/23 at 20:00 Divalproex Sodium (Depakote Sprinkles) 125 mg BID@1300,1700 PO Last administered on 10/25/16 16:56; Start 10/23/16 at 13:00; Stop 10/25/16 at 18:33 ; Status DC Divalproex Sodium (Depakote Sprinkles) 250 mg BID@0900,2100 PO Last administered on 10/25/16 07:27; Start 10/22/16 at 21:00; Stop 10/25/16 at 18:33 ; Status DC Quetiapine Fumarate (SEROquel) 37.5 mg BID@0900,1800 PO Last administered on 18:05; Start 10/24/16 at 09:00 Quetiapine Fumarate (SEROquel) 25 mg BID@1400,2100 PO Last administered on 11/01 19:39; Start 10/23/16 at 21:00 Divalproex Sodium (Depakote Sprinkles) 250 mg QID PO Last administered on 19:38; Start 10/25/16 at 21:00 Buspirone HCl (Buspar) 5 mg BID@1300,2100 PO Last administered on 11/01/16 19: 37; Start 11/01/16 at 21:00 Buspirone HCl (Buspar) 7.5 mg BID@0900,1700 PO Last administered on 11/01/16 18:04; Start 11/01/16 at 17:00 Active Scripts Active Reported Buspirone Hcl 5 Mg Tablet 5 Mg PO QID Trazodone Hcl 50 Mg Tablet 25 Mg PO PRN QHS PRN Zoloft (Sertraline Hcl) 50 Mg Tablet 75 Mg PO DAILY Klor-Con M20 (Potassium Chloride) 20 Meq Tab.er.prt 20 Meq PO BID Artificial Tears Eye Drops (Dextran 70/Hypromellose) 15 Ml Drops 1 Drp OU TID Olanzapine Odt (Olanzapine) 5 Mg Tab.rapdis 2.5 Mg PO PRN Q4HRS PRN Analgesic [place] (Methyl Salicylate/Menthol) 28 Gm Oint...g. 1 Beck TP PRN QID PRN Maalox Maximum Strength Susp (Mag Hydrox/Al Hydrox/Simeth) 355 Ml Oral.susp 15 Ml PO PRN AFTMEALHC PRN Milk Of Magnesia (Magnesium Hydroxide) 2,400 Mg/10 Ml Oral.susp 2,400 Mg PO PRN QHS PRN Depakote Sprinkle (Divalproex Sodium) 125 Mg Cap.sprink 125 Mg PO [id number] Vitamin B-12 (Cyanocobalamin (Vitamin B-12)) 1,000 Mcg Tablet 250 Mcg PO DAILY Vitamin D3 (Cholecalciferol (Vitamin D3)) 5,000 Unit Tablet 5,000 Unit PO WEEKLY Cetirizine Hcl 10 Mg Tablet 10 Mg PO DAILY Tylenol (Acetaminophen) 325 Mg Tablet 650 Mg PO PRN Q6HRS PRN Seroquel (Quetiapine Fumarate) 25 Mg Tablet 25 Mg PO QID Voltaren (Diclofenac Sodium) 100 Gm Gel..gram. 1 Beck TP BID Lorazepam 0.5 Mg Tablet 0.5 Mg PO TID PRN Melatin (Melatonin) 3 Mg Tablet 3 Mg PO QHS Metoprolol Succinate ( Xl ) (Metoprolol Succinate) 25 Mg Tab.er.24h 25 Mg PO BID Dilantin (Phenytoin Sodium Extended) 100 Mg Capsule 100 Mg PO BID Glucosamine Sulfate (Glucosamine Sulfate 2KCL) 1,000 Mg Tablet 1,000 Mg PO DAILY Aspirin 81 Mg Tab.chew 81 Mg PO DAILY Diagnosis: Problems: (1) Dementia with behavioral disturbance (2) Anxiety disorder (3) Dementia in Alzheimer's disease with delusions (4) Dementia in Alzheimer's disease with depression (5) Dementia, vascular, with delusions (6) Dementia, vascular, with depression (7) Impulse control disorder NAKIA KO MD Nov 01, 2016 20:00
--- NOTE | 2016-11-01 22:59 | PN ---
DATE: 10/31/2016 This is a late entry for 10/31/2016 and covers elements not covered in my initial note of 10/31/2016. SUBJECTIVE: The patient was staffed at a treatment team meeting with the entire team morning of 10/31/2016, seen individually evening of 10/31/2016. At the treatment team meeting, the patient's daughter, Agata attended as well. Reviewed the patient's history, diagnosis, current psychotropics, progress. The patient slept 7-1/4 hours. Appetite 70% confused, garbled in her speech but compliant, more redirectable. REVIEW OF SYSTEMS: No CV, , pulmonary, eye, ENT system symptoms on review. Reliability poor. MENTAL STATUS EXAM: Oriented to herself, ambulating by herself up and down the hallway, I followed her. Insight, judgment, recent and remote memory, attention, concentration, fund of knowledge poor, consistent with her diagnosis as mentioned in my initial note. PLAN: Continue current psychotropics, reviewed drug interactions, risk/benefit ratio favors no further change at this time. MAN Leandro KO MD DR: [email or web address]/luz JOB#: [id number] / [id number]
[2016-11-02 06:11] VITALS: BP 127/77
[2016-11-02] MEDS: DIVALPROEX 125 MG CAP.SPRINK PO SCH ×4 (08:26→20:26)
[2016-11-02] MEDS: CETIRIZINE HCL 10 MG TABLET PO SCH (08:26)
[2016-11-02] MEDS: busPIRone 5 MG TABLET. PO SCH ×4 (08:27→20:26)
[2016-11-02] MEDS: CHOLECALCIFEROL (VITAMIN D3) 1,000 UNIT TABLET PO SCH (08:28)
[2016-11-02] MEDS: ASPIRIN 81 MG TAB.CHEW PO SCH (08:29)
[2016-11-02] MEDS: POTASSIUM CHLORIDE 20 MEQ TABLET.ER. PO SCH ×2 (08:29→20:26)
[2016-11-02] MEDS: PHENYTOIN SODIUM EXTENDED 100 MG CAPSULE PO SCH ×2 (08:30→20:25)
[2016-11-02] MEDS: GLUCOSAMINE 500 MG CAPSULE PO SCH (08:30)
[2016-11-02] MEDS: SERTRALINE 50 MG TABLET. PO SCH (08:30)
[2016-11-02] MEDS: CYANOCOBALAMIN (VITAMIN B-12) 250 MCG TABLET PO SCH (08:31)
[2016-11-02] MEDS: QUEtiapine 25 MG TABLET. PO SCH ×4 (08:31→20:25)
[2016-11-02] MEDS: DICLOFENAC SODIUM 1% TOPICAL GEL 100GM TUBE. TP SCH ×2 (08:38→20:27)
[2016-11-02] MEDS: POLYVINYL ALCOHOL 1.4% OPHTH SOLUTION 15ML BOTTLE. OU SCH ×3 (09:00→20:26)
[2016-11-02 15:47] VITALS: BP 148/65
[2016-11-02] MEDS: MELATONIN 3 MG TABLET PO SCH (20:25)
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
[2016-11-03 06:44] VITALS: BP 137/52
[2016-11-03] MEDS: DICLOFENAC SODIUM 1% TOPICAL GEL 100GM TUBE. TP SCH ×2 (09:00→19:25)
[2016-11-03] MEDS: POLYVINYL ALCOHOL 1.4% OPHTH SOLUTION 15ML BOTTLE. OU SCH ×3 (09:00→19:25)
[2016-11-03] MEDS: DIVALPROEX 125 MG CAP.SPRINK PO SCH ×4 (10:23→19:24)
[2016-11-03] MEDS: CHOLECALCIFEROL (VITAMIN D3) 1,000 UNIT TABLET PO SCH (10:24)
[2016-11-03] MEDS: SERTRALINE 50 MG TABLET. PO SCH (10:24)
[2016-11-03] MEDS: ASPIRIN 81 MG TAB.CHEW PO SCH (10:24)
[2016-11-03] MEDS: busPIRone 5 MG TABLET. PO SCH ×4 (10:25→19:24)
[2016-11-03] MEDS: POTASSIUM CHLORIDE 20 MEQ TABLET.ER. PO SCH ×2 (10:25→19:25)
[2016-11-03] MEDS: CETIRIZINE HCL 10 MG TABLET PO SCH (10:26)
[2016-11-03] MEDS: CYANOCOBALAMIN (VITAMIN B-12) 250 MCG TABLET PO SCH (10:26)
[2016-11-03] MEDS: GLUCOSAMINE 500 MG CAPSULE PO SCH (10:26)
[2016-11-03] MEDS: QUEtiapine 25 MG TABLET. PO SCH ×4 (10:27→19:24)
[2016-11-03] MEDS: PHENYTOIN SODIUM EXTENDED 100 MG CAPSULE PO SCH ×2 (10:27→19:24)
[2016-11-03 16:47] VITALS: BP 150/69
[2016-11-03] MEDS: MELATONIN 3 MG TABLET PO SCH (19:24)
--- NOTE | 2016-11-03 19:53 | PDOC ---
Exam Dane Demential Exam: Dane Note: Please also refer to the separate dictated note~for this date of service dictated separately.~Patient seen individually. Discussed the patient with Nursing staff reviewed the chart.~Reviewed interim history and current functioning. Reviewed vital signs,~Labs/ Radiology~and current medications noted below. Continue current treatment with the changes noted in the dictated addendum note Assessment: Vital Signs: Vital Signs Date Time Temp Pulse Resp B/P (MAP) Pulse Ox O2 Delivery O2 Flow Rate FiO2 11/03/16 16:47 97.8 56 20 150/69 (96) 98 11/02/16 15:47 Room Air I&O Intake and Output 11/03/16 06:59 Intake Total 480 ml Balance 480 ml Intake Oral 480 ml # Bowel Movements 1 Current Medications: Meds: Current Medications Lorazepam (Ativan) 2 mg 1X ONCE IM Last administered on 10/18/16 20:13; Start 10/18/16 at 20:00; Stop 10/18/16 at 20:01; Status DC Haloperidol Lactate (Haldol) 5 mg 1X ONCE IM Last administered on 10/18/16 20 :13; Start 10/18/16 at 20:00; Stop 10/18/16 at 20:02; Status DC Lorazepam (Ativan) 2 mg 1X ONCE IV ; Start 10/18/16 at 20:00; Stop 10/18/16 at 20:02; Status DC Haloperidol Lactate (Haldol) 5 mg 1X ONCE IM ; Start 10/18/16 at 20:00; Stop at 20:02; Status DC Buspirone HCl (Buspar) 5 mg QID PO Last administered on 11/01/16 13:19; Start 10/19/16 at 09:00; Stop 11/01/16 at 15:15; Status DC Divalproex Sodium (Depakote Sprinkles) 125 mg [id number] PO Last administered on 17:07; Start 10/19/16 at 09:00; Stop 10/22/16 at 18:19; Status DC Lorazepam (Ativan) 0.5 mg PRN TID PRN PO ANXIETY / AGITATION Last administered on 10/30/16 05:39; Start 10/18/16 at 23:00 Olanzapine (ZyPREXA ZYDIS) 2.5 mg PRN Q4HRS PRN PO PSYCHOSIS Last administered on 11/02/16 17:59; Start 10/18/16 at 23:00 Quetiapine Fumarate (SEROquel) 25 mg QID PO Last administered on 10/23/16 17: 11; Start 10/19/16 at 09:00; Stop 10/23/16 at 18:39; Status DC Sertraline HCl (Zoloft) 75 mg DAILY PO Last administered on 11/03/16 10:24; Start 10/19/16 at 09:00 Trazodone HCl (Desyrel) 25 mg PRN QHS PRN PO INSOMNIA Last administered on 10/30 19:41; Start 10/18/16 at 23:00 Melatonin 3 mg QHS PO Last administered on 11/03/16 19:24; Start 10/18/16 at 23:00 Pneumococcal Polyvalent Vaccine (Pneumovax 23) 0.5 ml ONCE ONCE VAX IM ; Start 10/19/16 at 09:00; Stop 10/19/16 at 09:02; Status DC Acetaminophen (Tylenol) 650 mg PRN Q6HRS PRN PO PAIN / TEMP; Start 10/19/16 at 06:15 Aspirin (Children'S Aspirin) 81 mg DAILY PO Last administered on 11/03/16 10: 24; Start 10/19/16 at 09:00 Cetirizine HCl (ZyrTEC) 10 mg DAILY PO Last administered on 11/03/16 10:26; Start 10/19/16 at 09:00 Cyanocobalamin (Vitamin B-12) 250 mcg DAILY PO Last administered on 11/03/16 10:26; Start 10/19/16 at 09:00 Diclofenac Sodium (Voltaren) 1 beck BID TP Last administered on 11/03/16 19:25 ; Start 10/19/16 at 09:00 Al Hydroxide/Mg Hydroxide (Mylanta Plus Xs) 15 ml PRN AFTMEALHC PRN PO DYSPEPSIA; Start 10/19/16 at 06:15 Multi-Ingredient Ointment (Analgesic [place]) 1 beck PRN QID PRN TP MUSCLE PAIN; Start 10/19/16 at 06:15 Metoprolol Succinate (Toprol Xl) 25 mg BID PO Last administered on 10/20/16 08 :37; Start 10/19/16 at 09:00; Stop 10/20/16 at 16:35; Status DC Phenytoin Sodium (Dilantin) 100 mg BID PO Last administered on 11/03/16 19:24 ; Start 10/19/16 at 09:00 Potassium Chloride (Klor-Con) 20 meq BID PO Last administered on 11/03/16 19: 25; Start 10/19/16 at 09:00 Vitamin D (Vitamin D3) 5,000 unit DAILY PO Last administered on 11/03/16 10:24 ; Start 10/19/16 at 09:00 Artificial Tears (Artificial Tears) 1 drop TID OU Last administered on 19:25; Start 10/19/16 at 09:00 Glucosamine Sulfate (Glucosamine) 1,000 mg DAILY PO Last administered on 10:26; Start 10/19/16 at 09:00 Magnesium Hydroxide (Milk Of Magnesia) 2,400 mg PRN QHS PRN PO CONSTIPATION; Start 10/19/16 at 07:15 Artificial Tears (Artificial Tears) 1 drop PRN Q15MIN PRN OU DRY EYE; Start 02/23 at 20:00 Divalproex Sodium (Depakote Sprinkles) 125 mg BID@1300,1700 PO Last administered on 10/25/16 16:56; Start 10/23/16 at 13:00; Stop 10/25/16 at 18:33 ; Status DC Divalproex Sodium (Depakote Sprinkles) 250 mg BID@0900,2100 PO Last administered on 10/25/16 07:27; Start 10/22/16 at 21:00; Stop 10/25/16 at 18:33 ; Status DC Quetiapine Fumarate (SEROquel) 37.5 mg BID@0900,1800 PO Last administered on 18:42; Start 10/24/16 at 09:00 Quetiapine Fumarate (SEROquel) 25 mg BID@1400,2100 PO Last administered on 11/03 19:24; Start 10/23/16 at 21:00 Divalproex Sodium (Depakote Sprinkles) 250 mg QID PO Last administered on 19:24; Start 10/25/16 at 21:00 Buspirone HCl (Buspar) 5 mg BID@1300,2100 PO Last administered on 11/03/16 19: 24; Start 11/01/16 at 21:00 Buspirone HCl (Buspar) 7.5 mg BID@0900,1700 PO Last administered on 11/03/16 17:42; Start 11/01/16 at 17:00 Active Scripts Active Reported Buspirone Hcl 5 Mg Tablet 5 Mg PO QID Trazodone Hcl 50 Mg Tablet 25 Mg PO PRN QHS PRN Zoloft (Sertraline Hcl) 50 Mg Tablet 75 Mg PO DAILY Klor-Con M20 (Potassium Chloride) 20 Meq Tab.er.prt 20 Meq PO BID Artificial Tears Eye Drops (Dextran 70/Hypromellose) 15 Ml Drops 1 Drp OU TID Olanzapine Odt (Olanzapine) 5 Mg Tab.rapdis 2.5 Mg PO PRN Q4HRS PRN Analgesic [place] (Methyl Salicylate/Menthol) 28 Gm Oint...g. 1 Beck TP PRN QID PRN Maalox Maximum Strength Susp (Mag Hydrox/Al Hydrox/Simeth) 355 Ml Oral.susp 15 Ml PO PRN AFTMEALHC PRN Milk Of Magnesia (Magnesium Hydroxide) 2,400 Mg/10 Ml Oral.susp 2,400 Mg PO PRN QHS PRN Depakote Sprinkle (Divalproex Sodium) 125 Mg Cap.sprink 125 Mg PO [id number] Vitamin B-12 (Cyanocobalamin (Vitamin B-12)) 1,000 Mcg Tablet 250 Mcg PO DAILY Vitamin D3 (Cholecalciferol (Vitamin D3)) 5,000 Unit Tablet 5,000 Unit PO WEEKLY Cetirizine Hcl 10 Mg Tablet 10 Mg PO DAILY Tylenol (Acetaminophen) 325 Mg Tablet 650 Mg PO PRN Q6HRS PRN Seroquel (Quetiapine Fumarate) 25 Mg Tablet 25 Mg PO QID Voltaren (Diclofenac Sodium) 100 Gm Gel..gram. 1 Beck TP BID Lorazepam 0.5 Mg Tablet 0.5 Mg PO TID PRN Melatin (Melatonin) 3 Mg Tablet 3 Mg PO QHS Metoprolol Succinate ( Xl ) (Metoprolol Succinate) 25 Mg Tab.er.24h 25 Mg PO BID Dilantin (Phenytoin Sodium Extended) 100 Mg Capsule 100 Mg PO BID Glucosamine Sulfate (Glucosamine Sulfate 2KCL) 1,000 Mg Tablet 1,000 Mg PO DAILY Aspirin 81 Mg Tab.chew 81 Mg PO DAILY Diagnosis: Problems: (1) Dementia with behavioral disturbance (2) Anxiety disorder (3) Dementia in Alzheimer's disease with delusions (4) Dementia in Alzheimer's disease with depression (5) Dementia, vascular, with delusions (6) Dementia, vascular, with depression (7) Impulse control disorder NAKIA KO MD Nov 03, 2016 19:53
[2016-11-03] MEDS: LORazepam 0.5 MG TABLET PO PRN (23:23)
[2016-11-04 06:08] VITALS: BP 114/92
[2016-11-04] MEDS: DIVALPROEX 125 MG CAP.SPRINK PO SCH ×4 (09:13→21:15)
[2016-11-04] MEDS: PHENYTOIN SODIUM EXTENDED 100 MG CAPSULE PO SCH ×2 (09:14→21:15)
[2016-11-04] MEDS: QUEtiapine 25 MG TABLET. PO SCH ×4 (09:15→21:15)
[2016-11-04] MEDS: SERTRALINE 50 MG TABLET. PO SCH (09:16)
[2016-11-04] MEDS: POTASSIUM CHLORIDE 20 MEQ TABLET.ER. PO SCH ×2 (09:22→21:15)
[2016-11-04] MEDS: CYANOCOBALAMIN (VITAMIN B-12) 250 MCG TABLET PO SCH (09:22)
[2016-11-04] MEDS: CETIRIZINE HCL 10 MG TABLET PO SCH (09:22)
[2016-11-04] MEDS: GLUCOSAMINE 500 MG CAPSULE PO SCH (09:23)
[2016-11-04] MEDS: ASPIRIN 81 MG TAB.CHEW PO SCH (09:23)
[2016-11-04] MEDS: CHOLECALCIFEROL (VITAMIN D3) 1,000 UNIT TABLET PO SCH (09:23)
[2016-11-04] MEDS: DICLOFENAC SODIUM 1% TOPICAL GEL 100GM TUBE. TP SCH ×2 (09:24→21:42)
[2016-11-04] MEDS: POLYVINYL ALCOHOL 1.4% OPHTH SOLUTION 15ML BOTTLE. OU SCH ×3 (09:24→21:41)
[2016-11-04] MEDS: LORazepam 0.5 MG TABLET PO PRN (11:48)
[2016-11-04 15:52] VITALS: BP 124/68
--- NOTE | 2016-11-04 20:00 | PDOC ---
Exam Dane Demential Exam: Dane Note: Please also refer to the separate dictated note~for this date of service dictated separately.~Patient seen individually. Discussed the patient with Nursing staff reviewed the chart.~Reviewed interim history and current functioning. Reviewed vital signs,~Labs/ Radiology~and current medications noted below. Continue current treatment with the changes noted in the dictated addendum note Assessment: Vital Signs: Vital Signs Date Time Temp Pulse Resp B/P (MAP) Pulse Ox O2 Delivery O2 Flow Rate FiO2 11/04/16 15:52 97.0 73 18 124/68 (86) 97 11/02/16 15:47 Room Air I&O Intake and Output 11/04/16 07:00 Intake Total 220 ml Balance 220 ml Intake Oral 220 ml # Voids 1 Current Medications: Meds: Current Medications Lorazepam (Ativan) 2 mg 1X ONCE IM Last administered on 10/18/16 20:13; Start 10/18/16 at 20:00; Stop 10/18/16 at 20:01; Status DC Haloperidol Lactate (Haldol) 5 mg 1X ONCE IM Last administered on 10/18/16 20 :13; Start 10/18/16 at 20:00; Stop 10/18/16 at 20:02; Status DC Lorazepam (Ativan) 2 mg 1X ONCE IV ; Start 10/18/16 at 20:00; Stop 10/18/16 at 20:02; Status DC Haloperidol Lactate (Haldol) 5 mg 1X ONCE IM ; Start 10/18/16 at 20:00; Stop at 20:02; Status DC Buspirone HCl (Buspar) 5 mg QID PO Last administered on 11/01/16 13:19; Start 10/19/16 at 09:00; Stop 11/01/16 at 15:15; Status DC Divalproex Sodium (Depakote Sprinkles) 125 mg [id number] PO Last administered on 17:07; Start 10/19/16 at 09:00; Stop 10/22/16 at 18:19; Status DC Lorazepam (Ativan) 0.5 mg PRN TID PRN PO ANXIETY / AGITATION Last administered on 11/04/16 11:48; Start 10/18/16 at 23:00 Olanzapine (ZyPREXA ZYDIS) 2.5 mg PRN Q4HRS PRN PO PSYCHOSIS Last administered on 11/04/16 11:48; Start 10/18/16 at 23:00 Quetiapine Fumarate (SEROquel) 25 mg QID PO Last administered on 10/23/16 17: 11; Start 10/19/16 at 09:00; Stop 10/23/16 at 18:39; Status DC Sertraline HCl (Zoloft) 75 mg DAILY PO Last administered on 11/04/16 09:16; Start 10/19/16 at 09:00 Trazodone HCl (Desyrel) 25 mg PRN QHS PRN PO INSOMNIA Last administered on 10/30 19:41; Start 10/18/16 at 23:00 Melatonin 3 mg QHS PO Last administered on 11/03/16 19:24; Start 10/18/16 at 23:00 Pneumococcal Polyvalent Vaccine (Pneumovax 23) 0.5 ml ONCE ONCE VAX IM ; Start 10/19/16 at 09:00; Stop 10/19/16 at 09:02; Status DC Acetaminophen (Tylenol) 650 mg PRN Q6HRS PRN PO PAIN / TEMP; Start 10/19/16 at 06:15 Aspirin (Children'S Aspirin) 81 mg DAILY PO Last administered on 11/04/16 09: 23; Start 10/19/16 at 09:00 Cetirizine HCl (ZyrTEC) 10 mg DAILY PO Last administered on 11/04/16 09:22; Start 10/19/16 at 09:00 Cyanocobalamin (Vitamin B-12) 250 mcg DAILY PO Last administered on 11/04/16 09:22; Start 10/19/16 at 09:00 Diclofenac Sodium (Voltaren) 1 beck BID TP Last administered on 11/04/16 09:24 ; Start 10/19/16 at 09:00 Al Hydroxide/Mg Hydroxide (Mylanta Plus Xs) 15 ml PRN AFTMEALHC PRN PO DYSPEPSIA; Start 10/19/16 at 06:15 Multi-Ingredient Ointment (Analgesic [place]) 1 beck PRN QID PRN TP MUSCLE PAIN; Start 10/19/16 at 06:15 Metoprolol Succinate (Toprol Xl) 25 mg BID PO Last administered on 10/20/16 08 :37; Start 10/19/16 at 09:00; Stop 10/20/16 at 16:35; Status DC Phenytoin Sodium (Dilantin) 100 mg BID PO Last administered on 11/04/16 09:14 ; Start 10/19/16 at 09:00 Potassium Chloride (Klor-Con) 20 meq BID PO Last administered on 11/04/16 09: 22; Start 10/19/16 at 09:00 Vitamin D (Vitamin D3) 5,000 unit DAILY PO Last administered on 11/04/16 09:23 ; Start 10/19/16 at 09:00 Artificial Tears (Artificial Tears) 1 drop TID OU Last administered on 09:24; Start 10/19/16 at 09:00 Glucosamine Sulfate (Glucosamine) 1,000 mg DAILY PO Last administered on 09:23; Start 10/19/16 at 09:00 Magnesium Hydroxide (Milk Of Magnesia) 2,400 mg PRN QHS PRN PO CONSTIPATION; Start 10/19/16 at 07:15 Artificial Tears (Artificial Tears) 1 drop PRN Q15MIN PRN OU DRY EYE; Start 02/23 at 20:00 Divalproex Sodium (Depakote Sprinkles) 125 mg BID@1300,1700 PO Last administered on 10/25/16 16:56; Start 10/23/16 at 13:00; Stop 10/25/16 at 18:33 ; Status DC Divalproex Sodium (Depakote Sprinkles) 250 mg BID@0900,2100 PO Last administered on 10/25/16 07:27; Start 10/22/16 at 21:00; Stop 10/25/16 at 18:33 ; Status DC Quetiapine Fumarate (SEROquel) 37.5 mg BID@0900,1800 PO Last administered on 17:00; Start 10/24/16 at 09:00 Quetiapine Fumarate (SEROquel) 25 mg BID@1400,2100 PO Last administered on 11/04 14:27; Start 10/23/16 at 21:00 Divalproex Sodium (Depakote Sprinkles) 250 mg QID PO Last administered on 16:58; Start 10/25/16 at 21:00 Buspirone HCl (Buspar) 5 mg BID@1300,2100 PO Last administered on 11/03/16 19: 24; Start 11/01/16 at 21:00; Stop 11/04/16 at 06:35; Status DC Buspirone HCl (Buspar) 7.5 mg BID@0900,1700 PO Last administered on 11/03/16 17:42; Start 11/01/16 at 17:00; Stop 11/04/16 at 06:35; Status DC Mirtazapine (Remeron) 7.5 mg QHS PO ; Start 11/04/16 at 21:00 Active Scripts Active Reported Buspirone Hcl 5 Mg Tablet 5 Mg PO QID Trazodone Hcl 50 Mg Tablet 25 Mg PO PRN QHS PRN Zoloft (Sertraline Hcl) 50 Mg Tablet 75 Mg PO DAILY Klor-Con M20 (Potassium Chloride) 20 Meq Tab.er.prt 20 Meq PO BID Artificial Tears Eye Drops (Dextran 70/Hypromellose) 15 Ml Drops 1 Drp OU TID Olanzapine Odt (Olanzapine) 5 Mg Tab.rapdis 2.5 Mg PO PRN Q4HRS PRN Analgesic [place] (Methyl Salicylate/Menthol) 28 Gm Oint...g. 1 Beck TP PRN QID PRN Maalox Maximum Strength Susp (Mag Hydrox/Al Hydrox/Simeth) 355 Ml Oral.susp 15 Ml PO PRN AFTMEALHC PRN Milk Of Magnesia (Magnesium Hydroxide) 2,400 Mg/10 Ml Oral.susp 2,400 Mg PO PRN QHS PRN Depakote Sprinkle (Divalproex Sodium) 125 Mg Cap.sprink 125 Mg PO [id number] Vitamin B-12 (Cyanocobalamin (Vitamin B-12)) 1,000 Mcg Tablet 250 Mcg PO DAILY Vitamin D3 (Cholecalciferol (Vitamin D3)) 5,000 Unit Tablet 5,000 Unit PO WEEKLY Cetirizine Hcl 10 Mg Tablet 10 Mg PO DAILY Tylenol (Acetaminophen) 325 Mg Tablet 650 Mg PO PRN Q6HRS PRN Seroquel (Quetiapine Fumarate) 25 Mg Tablet 25 Mg PO QID Voltaren (Diclofenac Sodium) 100 Gm Gel..gram. 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
[2016-11-04] MEDS ORDERED: MIRTAZAPINE 7.5 MG TABLET. PO SCH (21:00)
[2016-11-04] MEDS: MELATONIN 3 MG TABLET PO SCH (21:15)
[2016-11-05] MEDS ORDERED: POLY15DR27 OU (01:24)
[2016-11-05] MEDS ORDERED: POLY15DR27 OP (01:31)
[2016-11-05] MEDS ORDERED: QUET50TA5 PO (01:35)
[2016-11-05 07:00] VITALS: BP 152/71
[2016-11-05] MEDS: QUEtiapine 25 MG TABLET. PO SCH ×2 (08:17→12:42)
[2016-11-05] MEDS: ASPIRIN 81 MG TAB.CHEW PO SCH (08:18)
[2016-11-05] MEDS: PHENYTOIN SODIUM EXTENDED 100 MG CAPSULE PO SCH (08:18)
[2016-11-05] MEDS: SERTRALINE 50 MG TABLET. PO SCH (08:18)
[2016-11-05] MEDS: CYANOCOBALAMIN (VITAMIN B-12) 250 MCG TABLET PO SCH (08:21)
[2016-11-05] MEDS: CHOLECALCIFEROL (VITAMIN D3) 1,000 UNIT TABLET PO SCH (08:21)
[2016-11-05] MEDS: GLUCOSAMINE 500 MG CAPSULE PO SCH (08:22)
[2016-11-05] MEDS: POTASSIUM CHLORIDE 20 MEQ TABLET.ER. PO SCH (08:22)
[2016-11-05] MEDS: CETIRIZINE HCL 10 MG TABLET PO SCH (08:22)
[2016-11-05] MEDS: DIVALPROEX 125 MG CAP.SPRINK PO SCH ×2 (08:28→12:42)
[2016-11-05] MEDS: DICLOFENAC SODIUM 1% TOPICAL GEL 100GM TUBE. TP SCH ×2 (08:39→10:49)
[2016-11-05] MEDS: POLYVINYL ALCOHOL 1.4% OPHTH SOLUTION 15ML BOTTLE. OU SCH ×2 (08:39→12:43)
[2016-11-05 09:14] LABS: ALBUMIN 3.6 g/dL (3.4-5.0); ALBUMIN/GLOBULIN RATIO 0.9 (1.0-1.7); CALCIUM 9.3 mg/dL (8.5-10.1); GFR 52.7; TOTAL BILIRUBIN 0.4 mg/dL (0.2-1.0); TOTAL PROTEIN 7.7 g/dL (6.4-8.2)
[2016-11-05 09:15] LABS: POTASSIUM 4.2 mmol/L (3.5-5.1)
[2016-11-05 09:16] LABS: BASO % 0 % (0-3); EOS # 0.3 x10^3/uL (0.0-0.7); EOS % 5 % (0-3); HEMATOCRIT 35.7 % (36.0-47.0); HEMOGLOBIN 11.8 g/dL (12.0-15.5); LYMPH # 1.6 x10^3/uL (1.0-4.8); LYMPH % 28 % (24-48); MEAN CORPUSCULAR HEMOGLOBIN 31 pg (25-35); MEAN CORPUSCULAR HGB CONC 33 g/dL (31-37); MEAN CORPUSCULAR VOLUME 94 fL (79-100); MONO # 0.6 x10^3/uL (0.0-1.1); MONO % 11 % (0-9); NEUT # 3.1 x10^3uL (1.8-7.7); NEUT % 56 % (31-73); PLATELET COUNT 178 x10^3/uL (140-400); RED BLOOD COUNT 3.82 x10^6/uL (3.50-5.40); RED CELL DISTRIBUTION WIDTH 14.7 % (11.5-14.5); WHITE BLOOD COUNT 5.5 x10^3/uL (4.0-11.0)
[2016-11-05 09:17] LABS: BILIRUBIN,URINE NEG (NEG); CLARITY,URINE HAZY; COLOR,URINE YELLOW; GLUCOSE,URINE NEG (NEG); NITRITE,URINE NEG (NEG); RBC,URINE OCC /HPF (0-2); UROBILINOGEN,URINE 1 mg/dL (0.2 mg/dL)
[2016-11-05 09:18] LABS: BACTERIA,URINE FEW /HPF (0-FEW); SQUAMOUS EPITHELIAL CELL,UR OCC /LPF
[2016-11-05 15:59] VITALS: BP 165/71
--- NOTE | 2016-11-05 17:26 | PN ---
DATE: 11/03/2016 PSYCHIATRIC PROGRESS NOTE This late entry of 11/03/2016 covers elements not covered in my initial note 11/03/2016. SUBJECTIVE: I met with the patient evening of 11/03/2016. The patient remains confused, very anxious, restless, apprehensive, wandering. Oriented just to herself. REVIEW OF SYSTEMS: No CV, , pulmonary, eye, ENT system symptoms on review. Reliability poor. MENTAL STATUS EXAM: Oriented to herself. Insight, judgment, recent and remote memory, attention, concentration, fund of knowledge poor, consistent with her diagnosis mentioned in my initial note. PLAN: We will observe the patient overnight, but staff have raised the question with her anxiety is worse since BuSpar was started and we may in fact stop the BuSpar, but we will see how she does overnight. In the meantime, continue rest of the psychotropics, review drug interactions, risk/benefit ratio favors no further change at this time. NAKIA KO MD DR: [email or web address]/luz JOB#: [id number] / [id number]
--- NOTE | 2016-11-05 19:38 | PDOC ---
Exam Dane Demential Exam: Dane Note: Please also refer to the separate dictated note~for this date of service dictated separately.~Patient seen individually. Discussed the patient with Nursing staff reviewed the chart.~Reviewed interim history and current functioning. Reviewed vital signs,~Labs/ Radiology~and current medications noted below. Continue current treatment with the changes noted in the dictated addendum note Assessment: Vital Signs: Vital Signs Date Time Temp Pulse Resp B/P (MAP) Pulse Ox O2 Delivery O2 Flow Rate FiO2 11/05/16 15:59 97.5 66 16 165/71 (102) 98 11/02/16 15:47 Room Air I&O Intake and Output 11/06/16 07:00 Intake Total 360 ml Balance 360 ml Intake Oral 360 ml Labs: Laboratory Tests Test 11/05/16 05:25 White Blood Count 5.5 x10^3/uL (4.0-11.0) # Red Blood Count 3.82 x10^6/uL (3.50-5.40) Hemoglobin 11.8 g/dL (12.0-15.5) L Hematocrit 35.7 % (36.0-47.0) L Mean Corpuscular Volume 94 fL (79-100) Mean Corpuscular Hemoglobin 31 pg (25-35) Mean Corpuscular Hemoglobin Concent 33 g/dL (31-37) Red Cell Distribution Width 14.7 % (11.5-14.5) H Platelet Count 178 x10^3/uL (140-400) Neutrophils (%) (Auto) 56 % (31-73) Lymphocytes (%) (Auto) 28 % (24-48) Monocytes (%) (Auto) 11 % (0-9) H Eosinophils (%) (Auto) 5 % (0-3) H Basophils (%) (Auto) 0 % (0-3) Neutrophils # (Auto) 3.1 x10^3uL (1.8-7.7) Lymphocytes # (Auto) 1.6 x10^3/uL (1.0-4.8) Monocytes # (Auto) 0.6 x10^3/uL (0.0-1.1) Eosinophils # (Auto) 0.3 x10^3/uL (0.0-0.7) Basophils # (Auto) 0.0 x10^3/uL (0.0-0.2) Urine Collection Type U cath Urine Color Yellow Urine Clarity Hazy Urine pH >8.5 Urine Specific [place] 1.015 Urine Protein 30 mg/dl (NEG-TRACE) Urine Glucose (UA) Neg mg/dL (NEG) Urine Ketones (Stick) Neg mg/dL (NEG) Urine Blood Trace (NEG) Urine Nitrite Neg (NEG) Urine Bilirubin Neg (NEG) Urine Urobilinogen Dipstick 1 mg/dL (0.2 mg/dL) Urine Leukocyte Esterase Neg (NEG) Urine RBC Occ /HPF (0-2) Urine WBC 1-4 /HPF (0-4) Urine Squamous Epithelial Cells Occ /LPF Urine Bacteria Few /HPF (0-FEW) Sodium Level 148 mmol/L (136-145) H Potassium Level 4.2 mmol/L (3.5-5.1) Chloride Level 111 mmol/L (98-107) H Carbon Dioxide Level 28 mmol/L (21-32) Anion Gap 9 (6-14) Blood Urea Nitrogen 22 mg/dL (7-20) H Creatinine 1.0 mg/dL (0.6-1.0) Estimated GFR (Cockcroft-Gault) 52.7 BUN/Creatinine Ratio 22 (6-20) H Glucose Level 107 mg/dL (70-99) H Calcium Level 9.3 mg/dL (8.5-10.1) Total Bilirubin 0.4 mg/dL (0.2-1.0) Aspartate Amino Transferase (AST) 152 U/L (15-37) H Alanine Aminotransferase (ALT) 165 U/L (14-59) H Alkaline Phosphatase 229 U/L (46-116) H Total Protein 7.7 g/dL (6.4-8.2) Albumin 3.6 g/dL (3.4-5.0) Albumin/Globulin Ratio 0.9 (1.0-1.7) L Current Medications: Meds: Current Medications Lorazepam (Ativan) 2 mg 1X ONCE IM Last administered on 10/18/16 20:13; Start 10/18/16 at 20:00; Stop 10/18/16 at 20:01; Status DC Haloperidol Lactate (Haldol) 5 mg 1X ONCE IM Last administered on 10/18/16 20 :13; Start 10/18/16 at 20:00; Stop 10/18/16 at 20:02; Status DC Lorazepam (Ativan) 2 mg 1X ONCE IV ; Start 10/18/16 at 20:00; Stop 10/18/16 at 20:02; Status DC Haloperidol Lactate (Haldol) 5 mg 1X ONCE IM ; Start 10/18/16 at 20:00; Stop at 20:02; Status DC Buspirone HCl (Buspar) 5 mg QID PO Last administered on 11/01/16 13:19; Start 10/19/16 at 09:00; Stop 11/01/16 at 15:15; Status DC Divalproex Sodium (Depakote Sprinkles) 125 mg [id number] PO Last administered on 17:07; Start 10/19/16 at 09:00; Stop 10/22/16 at 18:19; Status DC Lorazepam (Ativan) 0.5 mg PRN TID PRN PO ANXIETY / AGITATION Last administered on 11/04/16 11:48; Start 10/18/16 at 23:00; Stop 11/05/16 at 16:50; Status DC Olanzapine (ZyPREXA ZYDIS) 2.5 mg PRN Q4HRS PRN PO PSYCHOSIS Last administered on 11/05/16 12:43; Start 10/18/16 at 23:00; Stop 11/05/16 at 16:50; Status DC Quetiapine Fumarate (SEROquel) 25 mg QID PO Last administered on 10/23/16 17: 11; Start 10/19/16 at 09:00; Stop 10/23/16 at 18:39; Status DC Sertraline HCl (Zoloft) 75 mg DAILY PO Last administered on 11/05/16 08:18; Start 10/19/16 at 09:00; Stop 11/05/16 at 16:50; Status DC Trazodone HCl (Desyrel) 25 mg PRN QHS PRN PO INSOMNIA Last administered on 10/30 19:41; Start 10/18/16 at 23:00; Stop 11/05/16 at 16:50; Status DC Melatonin 3 mg QHS PO Last administered on 11/04/16 21:15; Start 10/18/16 at 23:00; Stop 11/05/16 at 16:50; Status DC Pneumococcal Polyvalent Vaccine (Pneumovax 23) 0.5 ml ONCE ONCE VAX IM ; Start 10/19/16 at 09:00; Stop 10/19/16 at 09:02; Status DC Acetaminophen (Tylenol) 650 mg PRN Q6HRS PRN PO PAIN / TEMP; Start 10/19/16 at 06:15; Stop 11/05/16 at 16:50; Status DC Aspirin (Children'S Aspirin) 81 mg DAILY PO Last administered on 11/05/16 08: 18; Start 10/19/16 at 09:00; Stop 11/05/16 at 16:50; Status DC Cetirizine HCl (ZyrTEC) 10 mg DAILY PO Last administered on 11/05/16 08:22; Start 10/19/16 at 09:00; Stop 11/05/16 at 16:50; Status DC Cyanocobalamin (Vitamin B-12) 250 mcg DAILY PO Last administered on 11/05/16 08:21; Start 10/19/16 at 09:00; Stop 11/05/16 at 16:50; Status DC Diclofenac Sodium (Voltaren) 1 beck BID TP Last administered on 11/04/16 21:42 ; Start 10/19/16 at 09:00; Stop 11/05/16 at 16:50; Status DC Al Hydroxide/Mg Hydroxide (Mylanta Plus Xs) 15 ml PRN AFTMEALHC PRN PO DYSPEPSIA; Start 10/19/16 at 06:15; Stop 11/05/16 at 16:50; Status DC Multi-Ingredient Ointment (Analgesic [place]) 1 beck PRN QID PRN TP MUSCLE PAIN; Start 10/19/16 at 06:15; Stop 11/05/16 at 16:50; Status DC Metoprolol Succinate (Toprol Xl) 25 mg BID PO Last administered on 10/20/16 08 :37; Start 10/19/16 at 09:00; Stop 10/20/16 at 16:35; Status DC Phenytoin Sodium (Dilantin) 100 mg BID PO Last administered on 11/05/16 08:18 ; Start 10/19/16 at 09:00; Stop 11/05/16 at 16:50; Status DC Potassium Chloride (Klor-Con) 20 meq BID PO Last administered on 11/05/16 08: 22; Start 10/19/16 at 09:00; Stop 11/05/16 at 16:50; Status DC Vitamin D (Vitamin D3) 5,000 unit DAILY PO Last administered on 11/05/16 08:21 ; Start 10/19/16 at 09:00; Stop 11/05/16 at 16:50; Status DC Artificial Tears (Artificial Tears) 1 drop TID OU Last administered on 08:39; Start 10/19/16 at 09:00; Stop 11/05/16 at 16:50; Status DC Glucosamine Sulfate (Glucosamine) 1,000 mg DAILY PO Last administered on 08:22; Start 10/19/16 at 09:00; Stop 11/05/16 at 16:50; Status DC Magnesium Hydroxide (Milk Of Magnesia) 2,400 mg PRN QHS PRN PO CONSTIPATION; Start 10/19/16 at 07:15; Stop 11/05/16 at 16:50; Status DC Artificial Tears (Artificial Tears) 1 drop PRN Q15MIN PRN OU DRY EYE; Start 02/23 at 20:00; Stop 11/05/16 at 16:50; Status DC Divalproex Sodium (Depakote Sprinkles) 125 mg BID@1300,1700 PO Last administered on 10/25/16 16:56; Start 10/23/16 at 13:00; Stop 10/25/16 at 18:33 ; Status DC Divalproex Sodium (Depakote Sprinkles) 250 mg BID@0900,2100 PO Last administered on 10/25/16 07:27; Start 10/22/16 at 21:00; Stop 10/25/16 at 18:33 ; Status DC Quetiapine Fumarate (SEROquel) 37.5 mg BID@0900,1800 PO Last administered on 08:17; Start 10/24/16 at 09:00; Stop 11/05/16 at 16:50; Status DC Quetiapine Fumarate (SEROquel) 25 mg BID@1400,2100 PO Last administered on 11/05 12:42; Start 10/23/16 at 21:00; Stop 11/05/16 at 16:50; Status DC Divalproex Sodium (Depakote Sprinkles) 250 mg QID PO Last administered on 12:42; Start 10/25/16 at 21:00; Stop 11/05/16 at 16:50; Status DC Buspirone HCl (Buspar) 5 mg BID@1300,2100 PO Last administered on 11/03/16 19: 24; Start 11/01/16 at 21:00; Stop 11/04/16 at 06:35; Status DC Buspirone HCl (Buspar) 7.5 mg BID@0900,1700 PO Last administered on 11/03/16 17:42; Start 11/01/16 at 17:00; Stop 11/04/16 at 06:35; Status DC Mirtazapine (Remeron) 7.5 mg QHS PO Last administered on 11/04/16 21:17; Start 11/04/16 at 21:00; Stop 11/05/16 at 16:50; Status DC Active Scripts Active Reported Seroquel (Quetiapine Fumarate) 50 Mg Tablet 37.5 Mg PO BID@0900,1800 Artificial Tears (Polyvinyl Alcohol) 15 Ml Drops 1 Drop OP PRN Q15MIN PRN Artificial Tears (Polyvinyl Alcohol) 15 Ml Drops 1 Drop OU TID Zoloft (Sertraline Hcl) 50 Mg Tablet 75 Mg PO DAILY Klor-Con M20 (Potassium Chloride) 20 Meq Tab.er.prt 20 Meq PO BID Olanzapine Odt (Olanzapine) 5 Mg Tab.rapdis 2.5 Mg PO PRN Q4HRS PRN Analgesic [place] (Methyl Salicylate/Menthol) 28 Gm Oint...g. 1 Beck TP PRN QID PRN Maalox Maximum Strength Susp (Mag Hydrox/Al Hydrox/Simeth) 355 Ml Oral.susp 15 Ml PO PRN AFTMEALHC PRN Milk Of Magnesia (Magnesium Hydroxide) 2,400 Mg/10 Ml Oral.susp 2,400 Mg PO PRN QHS PRN Depakote Sprinkle (Divalproex Sodium) 125 Mg Cap.sprink 250 Mg PO QID Vitamin B-12 (Cyanocobalamin (Vitamin B-12)) 1,000 Mcg Tablet 250 Mcg PO DAILY Vitamin D3 (Cholecalciferol (Vitamin D3)) 5,000 Unit Tablet 5,000 Unit PO DAILY Cetirizine Hcl 10 Mg Tablet 10 Mg PO DAILY Seroquel (Quetiapine Fumarate) 25 Mg Tablet 25 Mg PO BID@1400,2100 Voltaren (Diclofenac Sodium) 100 Gm Gel..gram. 1 Beck TP BID Lorazepam 0.5 Mg Tablet 0.5 Mg PO TID PRN Melatin (Melatonin) 3 Mg Tablet 3 Mg PO QHS Dilantin (Phenytoin Sodium Extended) 100 Mg Capsule 100 Mg PO BID Aspirin 81 Mg Tab.chew 81 Mg PO DAILY Diagnosis: Problems: (1) Dementia with behavioral disturbance (2) Anxiety disorder (3) Dementia in Alzheimer's disease with delusions (4) Dementia in Alzheimer's disease with depression (5) Dementia, vascular, with delusions (6) Dementia, vascular, with depression (7) Impulse control disorder NAKIA KO MD Nov 05, 2016 19:38
--- NOTE | 2016-11-06 02:25 | PN ---
DATE: 11/04/2016 This is a late entry for 11/04/2016, covers the elements not covered in my initial note of 11/04/2016. SUBJECTIVE: I met with the patient the evening of 11/04/2016. She remains confused, anxious, did have a shower, slept just 4 hours previous evening. REVIEW OF SYSTEMS: No CV, , pulmonary, eye, ENT system symptoms on review. Reliability poor. MENTAL STATUS EXAM: Oriented to herself. Insight, judgment, recent and remote memory, attention, concentration, fund of knowledge poor, consistent with her diagnosis. She has a very anxious, constrained expression about her face, fell in her room at 1:30, no injury noted. No suicidal or homicidal ideation noted. LABORATORY DATA: Reviewed. IMPRESSION: Unchanged from initial note. PLAN: BuSpar was stopped as the staff felt she was more agitated and anxious with this, which is surprising. We will start Remeron 7.5 mg at bedtime. Continue Zoloft, Seroquel, and Depakote together with melatonin and trazodone. Adjust further as clinically indicated. We may need to adjust the Depakote to a therapeutic level if needed. NAKIA KO MD DR: [email or web address]/luz JOB#: [id number] / [id number]
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
== END 2016-11-05 16:50 | disposition short-term general hospital (02) | DRG 884 ==
LOC: ER 19:42 → GEROPSY 22:33
PROVIDERS: ADMIT Psychiatry & Neurology Psychiatry; ATTEND Psychiatry & Neurology Psychiatry
DX: F01.51 Vascular dementia, unspecified severity, with behavioral disturbance (principal); G30.9 Alzheimer's disease, unspecified; G40.909 Epilepsy, unspecified, not intractable, without status epilepticus; F02.81 Dementia in other diseases classified elsewhere, unspecified severity, with behavioral disturbance; F22 Delusional disorders; F32.9 Major depressive disorder, single episode, unspecified; F43.22 Adjustment disorder with anxiety; F63.9 Impulse disorder, unspecified; Z66 Do not resuscitate; I10 Essential (primary) hypertension; G47.00 Insomnia, unspecified; R74.8 Abnormal levels of other serum enzymes; F41.9 Anxiety disorder, unspecified; Z79.899 Other long term (current) drug therapy
CPT/HCPCS: 36415; 71010; 80053; 80061; 80164; 80185; 80307; 81001; 82140; 82306; 82553; 82607; 82947; 83036; 83540; 83550; 83605; 83735; 84436; 84443; 84480; 84484; 85025; 86592; 86593; 93005; 96372; G0480; J1630; J2060; 99285-25; G0479

== ENCOUNTER 2016-11-05 16:49 | Inpatient (IN) | payer MEDICARE, OTHER ==
[~2016-11-05] VITALS: Ht 160 cm; Wt 49.5 kg
[~2016-11-05 16:49] MED LIST changes: +POLY15DR27 OP; +POLY15DR27 OU; +QUET50TA5 PO
[2016-11-05] MEDS ORDERED: diphenhydrAMINE HCL 25 MG CAPSULE PO PRN (18:15)
[2016-11-05] MEDS ORDERED: diphenhydrAMINE 50 MG/ML VIAL IV PRN (18:15)
[2016-11-05] MEDS ORDERED: ONDANSETRON PF 4 MG/2 ML VIAL. IV PRN (18:15)
[2016-11-05] MEDS ORDERED: traZODone 50 MG TABLET. PO PRN (19:00)
[2016-11-05] MEDS ORDERED: LORazepam 0.5 MG TABLET PO PRN (19:00)
[2016-11-05] MEDS: IV DEXTROSE 5% 1,000 ML IV SCH (19:01)
[2016-11-05] MEDS ORDERED: POTASSIUM CHLORIDE 20 MEQ TABLET.ER. PO ONE (19:17)
[2016-11-05] MEDS ORDERED: PHENYTOIN SODIUM EXTENDED 100 MG CAPSULE PO ONE (19:17)
[2016-11-05] MEDS ORDERED: DIVALPROEX 125 MG CAP.SPRINK PO ONE (19:17)
[2016-11-05] MEDS ORDERED: MELATONIN 3 MG TABLET ONE (19:18)
[2016-11-05] MEDS ORDERED: QUEtiapine 25 MG TABLET. ONE (19:18)
[2016-11-05] MEDS: DIVALPROEX 125 MG CAP.SPRINK PO SCH (19:20)
[2016-11-05] MEDS: QUEtiapine 25 MG TABLET. PO SCH (19:21)
[2016-11-05] MEDS: POTASSIUM CHLORIDE 20 MEQ TABLET.ER. PO SCH (19:21)
[2016-11-05] MEDS: MELATONIN 3 MG TABLET PO SCH (19:21)
[2016-11-05] MEDS: PHENYTOIN SODIUM EXTENDED 100 MG CAPSULE PO SCH (19:21)
[2016-11-05 19:42] VITALS: BP 121/58
[2016-11-05 20:04] VITALS: BP 141/57
[2016-11-05 21:06] VITALS: BP 100/40
[2016-11-05 22:04] VITALS: BP 94/41
[2016-11-05 23:07] VITALS: BP 98/55
[2016-11-06] VITALS (12 sets, daily range): BP systolic 96–159; BP diastolic 44–73
[2016-11-06] MEDS: IV DEXTROSE 5% 1,000 ML IV SCH ×2 (04:56→15:12)
[2016-11-06 06:34] LABS: BASO % 1 % (0-3); EOS # 0.3 x10^3/uL (0.0-0.7); EOS % 7 % (0-3); HEMATOCRIT 33.7 % (36.0-47.0); HEMOGLOBIN 11.2 g/dL (12.0-15.5); LYMPH # 1.2 x10^3/uL (1.0-4.8); LYMPH % 29 % (24-48); MEAN CORPUSCULAR HEMOGLOBIN 31 pg (25-35); MEAN CORPUSCULAR HGB CONC 33 g/dL (31-37); MEAN CORPUSCULAR VOLUME 92 fL (79-100); MONO # 0.4 x10^3/uL (0.0-1.1); MONO % 11 % (0-9); NEUT # 2.1 x10^3uL (1.8-7.7); NEUT % 53 % (31-73); PLATELET COUNT 150 x10^3/uL (140-400); RED BLOOD COUNT 3.67 x10^6/uL (3.50-5.40); RED CELL DISTRIBUTION WIDTH 14.7 % (11.5-14.5)
[2016-11-06 06:40] LABS: ALBUMIN 3.2 g/dL (3.4-5.0); ALBUMIN/GLOBULIN RATIO 0.9 (1.0-1.7); ALK PHOS 220 U/L (46-116); ALT (SGPT) 164 U/L (14-59); ANION GAP 5 (6-14); AST (SGOT) 143 U/L (15-37); BLOOD UREA NITROGEN 20 mg/dL (7-20); BUN/CREATININE RATIO 22 (6-20); CALCIUM 8.5 mg/dL (8.5-10.1); CARBON DIOXIDE 28 mmol/L (21-32); CHLORIDE 107 mmol/L (98-107); CREATININE 0.9 mg/dL (0.6-1.0); GFR 59.5; GLUCOSE 100 mg/dL (70-99); PHENY 16.4 mcg/mL (10.0-20.0); POTASSIUM 4.1 mmol/L (3.5-5.1); SODIUM 140 mmol/L (136-145); TOTAL BILIRUBIN 0.4 mg/dL (0.2-1.0); TOTAL PROTEIN 6.9 g/dL (6.4-8.2)
[2016-11-06 06:43] LABS: VAL ACID 40 mcg/mL (50-100)
[2016-11-06] MEDS: ASPIRIN 81 MG TAB.CHEW PO SCH (08:22)
[2016-11-06] MEDS: SERTRALINE 50 MG TABLET. PO SCH (08:23)
[2016-11-06] MEDS: POTASSIUM CHLORIDE 20 MEQ TABLET.ER. PO SCH ×2 (08:23→19:28)
[2016-11-06] MEDS: PHENYTOIN SODIUM EXTENDED 100 MG CAPSULE PO SCH ×2 (08:23→19:29)
[2016-11-06] MEDS: DIVALPROEX 125 MG CAP.SPRINK PO SCH ×4 (09:00→18:14)
[2016-11-06] MEDS: CYANOCOBALAMIN (VITAMIN B-12) 250 MCG TABLET PO SCH (09:00)
[2016-11-06] MEDS: QUEtiapine 25 MG TABLET. PO SCH ×4 (09:00→18:15)
[2016-11-06] MEDS: HALOPERIDOL LACT 5 MG/ML VIAL. IVP PRN (09:38)
--- NOTE | 2016-11-06 15:43 | RAD ---
Ultrasound of the right upper quadrant of the abdomen 11/06/2016 Clinical history: Elevated liver function tests. Technique: A real-time ultrasound examination of the right upper quadrant of the abdomen was performed. Multiple images were obtained. Findings: The gallbladder is well distended. No gallstones are visualized. The gallbladder wall thickness is within normal limits. The common bile duct measures 8 mm in diameter which is within normal limits for the patient's age. The liver is normal in size measuring 14.4 cm in length. No focal abnormality of the liver is seen. The pancreatic duct is mildly prominent measuring 2.8 mm in diameter. No focal abnormality of the pancreas is seen. The right kidney is within normal limits. No free fluid is seen. Impression: No acute abnormality is seen.
--- NOTE | 2016-11-06 16:06 | HP ---
ADMIT DATE: 11/06/2016 HISTORY OF PRESENT ILLNESS: The patient is an 86-year-old female patient who I have seen at [facility]. The nursing staff were concerned that she was more confused and in fact her lab work showed marked hypernatremia, dehydration and also markedly elevated liver enzymes and therefore, a decision was made to transfer her to the ICU and we started her on IV fluid and to monitor her liver enzymes and her electrolytes and arrange for abdominal ultrasound. She was admitted on 10/19/2016. She has been aggressive with staff, refusing her medication at the senior living and was admitted to [facility] for inpatient psychiatric stabilization. PAST MEDICAL HISTORY: Significant for hypertension, seizure disorder. PAST SURGICAL HISTORY: Unremarkable. FAMILY HISTORY: Unremarkable. SOCIAL HISTORY: She is a senior living resident. She does not smoke, drink alcohol or use any recreational drugs. REVIEW OF SYSTEMS: Unobtainable as the patient is very confused. ALLERGIES: She has no known drug allergies. CURRENT MEDICATIONS: She is on aspirin 81 mg once a day, cetirizine 10 mg once a day, cholecalciferol 5000 international units p.o. daily, cyanocobalamin 250 mcg daily, diclofenac 1 gram applied topically twice a day, divalproex 125 mg 4 times a day that was increased to 250 four times a day when she arrived to [facility], lorazepam 0.5 mg 3 times a day, milk of magnesia 30 mL p.o. daily p.r.n. for constipation, melatonin 3 mg at bedtime, methyl analgesic balm applied topically 4 times a day for pain, olanzapine 2.5 mg every 4 hours, phenytoin sodium extended release, Dilantin 100 mg twice a day, polyvinyl alcohol 1 drop to both eyes 3 times a day, potassium chloride 20 mEq b.i.d., Seroquel 25 mg b.i.d., Seroquel 37.5 mg b.i.d., sertraline 75 mg daily and trazodone 25 mg at bedtime. PHYSICAL EXAMINATION: GENERAL: On arrival to the ICU. The patient was lethargic, but arousable, restless at times. She was pale, but no jaundice, cyanosis, or thyromegaly. No jugular venous distension. No lower limb edema. VITAL SIGNS: Her heart rate was 62, blood pressure was 148/65, temperature was 97.4, respiratory rate 22 and oxygen saturation 100% on room air. HEAD, eyes, EARS, NOSE, and THROAT: Showed normocephalic, atraumatic. NECK: Supple. HEART: Showed normal first and second heart sounds with no gallop, rub or murmur. CHEST: Clear to auscultation. No crepitation or rhonchi. ABDOMEN: Distended, soft, nontender. No guarding or rigidity. No organomegaly. Hernial orifices intact. Bowel sounds normal. NEUROLOGIC: She was very confused, lethargic, but arousable. All cranial nerves intact. EXTREMITIES: She moves all extremities spontaneously. She was restless, agitated at that time. We did start her on D5W at 100 mL per hour and continue with all her medication. I did order her labs to be repeated including a CBC and CMP and also serum ammonia and prothrombin time and I did order also abdominal ultrasound to evaluate abnormal liver enzymes. FINAL ADMITTING DIAGNOSES: 1. Altered mental status. 2. Hypernatremia with a serum sodium of 148. 3. Dehydration. 4. Abnormal liver enzymes. ERICA FLORENCE MD DR: SYED/luz JOB#: [id number] / [id number]
--- NOTE | 2016-11-06 18:42 | PDOC ---
Exam Dane Demential Exam: Dane Note: Please also refer to the separate dictated note~for this date of service dictated separately.~Patient seen individually. Discussed the patient with Nursing staff reviewed the chart.~Reviewed interim history and current functioning. Reviewed vital signs,~Labs/ Radiology~and current medications noted below. Continue current treatment with the changes noted in the dictated addendum note Assessment: Vital Signs: Vital Signs Date Time Temp Pulse Resp B/P (MAP) Pulse Ox O2 Delivery O2 Flow Rate FiO2 11/06/16 14:15 56 20 143/59 (87) 96 Room Air 11/06/16 11:27 97.8 I&O Intake and Output 11/07/16 07:00 Intake Total 120 ml Output Total 350 ml Balance -230 ml Intake Oral 120 ml Output Urine Total 350 ml Labs: Laboratory Tests Test 11/06/16 05:45 White Blood Count 4.0 x10^3/uL (4.0-11.0) Red Blood Count 3.67 x10^6/uL (3.50-5.40) Hemoglobin 11.2 g/dL (12.0-15.5) L Hematocrit 33.7 % (36.0-47.0) L Mean Corpuscular Volume 92 fL (79-100) Mean Corpuscular Hemoglobin 31 pg (25-35) Mean Corpuscular Hemoglobin Concent 33 g/dL (31-37) Red Cell Distribution Width 14.7 % (11.5-14.5) H Platelet Count 150 x10^3/uL (140-400) Neutrophils (%) (Auto) 53 % (31-73) Lymphocytes (%) (Auto) 29 % (24-48) Monocytes (%) (Auto) 11 % (0-9) H Eosinophils (%) (Auto) 7 % (0-3) H Basophils (%) (Auto) 1 % (0-3) Neutrophils # (Auto) 2.1 x10^3uL (1.8-7.7) Lymphocytes # (Auto) 1.2 x10^3/uL (1.0-4.8) Monocytes # (Auto) 0.4 x10^3/uL (0.0-1.1) Eosinophils # (Auto) 0.3 x10^3/uL (0.0-0.7) Basophils # (Auto) 0.0 x10^3/uL (0.0-0.2) Prothrombin Time 11.0 SEC (9.4-11.4) Prothrombin Time INR 1.1 (0.9-1.1) Sodium Level 140 mmol/L (136-145) Potassium Level 4.1 mmol/L (3.5-5.1) Chloride Level 107 mmol/L (98-107) Carbon Dioxide Level 28 mmol/L (21-32) Anion Gap 5 (6-14) L Blood Urea Nitrogen 20 mg/dL (7-20) Creatinine 0.9 mg/dL (0.6-1.0) Estimated GFR (Cockcroft-Gault) 59.5 BUN/Creatinine Ratio 22 (6-20) H Glucose Level 100 mg/dL (70-99) H Calcium Level 8.5 mg/dL (8.5-10.1) Total Bilirubin 0.4 mg/dL (0.2-1.0) Aspartate Amino Transferase (AST) 143 U/L (15-37) H Alanine Aminotransferase (ALT) 164 U/L (14-59) H Alkaline Phosphatase 220 U/L (46-116) H Ammonia 15 mcmol/L (11-34) Total Protein 6.9 g/dL (6.4-8.2) Albumin 3.2 g/dL (3.4-5.0) L Albumin/Globulin Ratio 0.9 (1.0-1.7) L Phenytoin (Dilantin) Level 16.4 mcg/mL (10.0-20.0) Phenytoin Last Dose Date 11/05/2016 Phenytoin Last Dose Time 2100 Valproic Acid Level 40 mcg/mL (50-100) L Valproic Acid Last Dose Date 11/05/2016 Valproic Acid Last Dose Time 1920 Current Medications: Meds: Current Medications Ondansetron HCl (Zofran) 4 mg PRN Q8HRS PRN IV NAUSEA/VOMITING; Start 11/05/16 at 18:15 Diphenhydramine HCl (Benadryl) 25 mg PRN Q6HRS PRN PO SEE COMMENTS; Start 11/05 at 18:15 Diphenhydramine HCl (Benadryl) 25 mg PRN Q6HRS PRN IV SEE COMMENTS; Start 11/05 at 18:15 Dextrose 1,000 ml @ 100 mls/hr Q10H IV Last administered on 11/06/16 15:12; Start 11/05/16 at 18:15 Haloperidol Lactate (Haldol) 5 mg PRN Q6HRS PRN IVP AGITATION Last administered on 11/06/16 09:38; Start 11/05/16 at 18:15 Olanzapine (ZyPREXA ZYDIS) 2.5 mg PRN Q4HRS PRN PO ANXIETY; Start 11/05/16 at 18:15 Aspirin (Children'S Aspirin) 81 mg DAILY PO Last administered on 11/06/16 08: 22; Start 11/06/16 at 09:00 Cyanocobalamin (Vitamin B-12) 250 mcg DAILY PO ; Start 11/06/16 at 09:00 Divalproex Sodium (Depakote Sprinkles) 250 mg QID PO Last administered on 19:20; Start 11/05/16 at 21:00 Lorazepam (Ativan) 0.5 mg PRN TID PRN PO ANXIETY / AGITATION Last administered on 11/06/16 08:23; Start 11/05/16 at 19:00 Olanzapine (ZyPREXA ZYDIS) 2.5 mg PRN Q4HRS PRN PO PSYCHOSIS; Start 11/05/16 at 19:00; Status UNV Phenytoin Sodium (Dilantin) 100 mg BID PO Last administered on 11/06/16 08:23 ; Start 11/05/16 at 21:00 Potassium Chloride (Klor-Con) 20 meq BID PO Last administered on 11/06/16 08: 23; Start 11/05/16 at 21:00 Quetiapine Fumarate (SEROquel) 25 mg BID@1400,2100 PO Last administered on 11/05 19:21; Start 11/05/16 at 21:00 Quetiapine Fumarate (SEROquel) 37.5 mg BID@0900,1800 PO ; Start 11/06/16 at 09: 00 Sertraline HCl (Zoloft) 75 mg DAILY PO Last administered on 11/06/16 08:23; Start 11/06/16 at 09:00 Trazodone HCl (Desyrel) 25 mg PRN QHS PRN PO INSOMNIA; Start 11/05/16 at 19:00 Melatonin 3 mg QHS PO Last administered on 11/05/16t 19:21; Start 11/05/16 at 21:00 Phenytoin Sodium (Dilantin) 100 mg STK-MED ONCE PO ; Start 11/05/16 at 19:17; Stop 11/05/16 at 19:18; Status DC Divalproex Sodium (Depakote Sprinkles) 125 mg STK-MED ONCE PO ; Start 11/05/16 at 19:17; Stop 11/05/16 at 19:18; Status DC Potassium Chloride (Klor-Con) 20 meq STK-MED ONCE PO ; Start 11/05/16 at 19:17; Stop 11/05/16 at 19:18; Status DC Quetiapine Fumarate (SEROquel) 25 mg STK-MED ONCE .ROUTE ; Start 11/05/16 at 19: 18; Stop 11/05/16 at 19:19; Status DC Melatonin 3 mg STK-MED ONCE .ROUTE ; Start 11/05/16 at 19:18; Stop 11/05/16 at 19:19; Status DC Active Scripts Active Reported Seroquel (Quetiapine Fumarate) 50 Mg Tablet 37.5 Mg PO BID@0900,1800 Artificial Tears (Polyvinyl Alcohol) 15 Ml Drops 1 Drop OP PRN Q15MIN PRN Artificial Tears (Polyvinyl Alcohol) 15 Ml Drops 1 Drop OU TID Zoloft (Sertraline Hcl) 50 Mg Tablet 75 Mg PO DAILY Klor-Con M20 (Potassium Chloride) 20 Meq Tab.er.prt 20 Meq PO BID Olanzapine Odt (Olanzapine) 5 Mg Tab.rapdis 2.5 Mg PO PRN Q4HRS PRN Analgesic [place] (Methyl Salicylate/Menthol) 28 Gm Oint...g. 1 Beck TP PRN QID PRN Maalox Maximum Strength Susp (Mag Hydrox/Al Hydrox/Simeth) 355 Ml Oral.susp 15 Ml PO PRN AFTMEALHC PRN Milk Of Magnesia (Magnesium Hydroxide) 2,400 Mg/10 Ml Oral.susp 2,400 Mg PO PRN QHS PRN Depakote Sprinkle (Divalproex Sodium) 125 Mg Cap.sprink 250 Mg PO QID Vitamin B-12 (Cyanocobalamin (Vitamin B-12)) 1,000 Mcg Tablet 250 Mcg PO DAILY Vitamin D3 (Cholecalciferol (Vitamin D3)) 5,000 Unit Tablet 5,000 Unit PO DAILY Cetirizine Hcl 10 Mg Tablet 10 Mg PO DAILY Seroquel (Quetiapine Fumarate) 25 Mg Tablet 25 Mg PO BID@1400,2100 Voltaren (Diclofenac Sodium) 100 Gm Gel..gram. 1 Beck TP BID Lorazepam 0.5 Mg Tablet 0.5 Mg PO TID PRN Melatin (Melatonin) 3 Mg Tablet 3 Mg PO QHS Dilantin (Phenytoin Sodium Extended) 100 Mg Capsule 100 Mg PO BID Aspirin 81 Mg Tab.chew 81 Mg PO DAILY Diagnosis: Problems: (1) Impulse control disorder (2) Dementia, vascular, with depression (3) Dementia, vascular, with delusions (4) Dementia in Alzheimer's disease with depression (5) Dementia in Alzheimer's disease with delusions (6) Anxiety disorder (7) Dementia with behavioral disturbance NAKIA KO MD Nov 06, 2016 18:41
[2016-11-06] MEDS: MELATONIN 3 MG TABLET PO SCH (19:30)
[2016-11-07] MEDS: IV DEXTROSE 5% 1,000 ML IV SCH ×2 (00:05→10:15)
[2016-11-07 05:09] VITALS: BP 139/63
[2016-11-07] MEDS: ASPIRIN 81 MG TAB.CHEW PO SCH (07:45)
[2016-11-07] MEDS: POTASSIUM CHLORIDE 20 MEQ TABLET.ER. PO SCH (07:45)
[2016-11-07] MEDS: CYANOCOBALAMIN (VITAMIN B-12) 250 MCG TABLET PO SCH (07:45)
[2016-11-07] MEDS: QUEtiapine 25 MG TABLET. PO SCH ×2 (07:46→15:07)
[2016-11-07] MEDS: DIVALPROEX 125 MG CAP.SPRINK PO SCH ×2 (07:46→13:08)
[2016-11-07] MEDS: PHENYTOIN SODIUM EXTENDED 100 MG CAPSULE PO SCH (07:46)
[2016-11-07] MEDS: SERTRALINE 50 MG TABLET. PO SCH (07:46)
[2016-11-07 07:57] LABS: BASO % 0 % (0-3); EOS # 0.2 x10^3/uL (0.0-0.7); EOS % 4 % (0-3); HEMATOCRIT 31.3 % (36.0-47.0); HEMOGLOBIN 10.6 g/dL (12.0-15.5); LYMPH # 1.1 x10^3/uL (1.0-4.8); LYMPH % 25 % (24-48); MEAN CORPUSCULAR HEMOGLOBIN 31 pg (25-35); MEAN CORPUSCULAR HGB CONC 34 g/dL (31-37); MEAN CORPUSCULAR VOLUME 91 fL (79-100); MONO # 0.4 x10^3/uL (0.0-1.1); MONO % 9 % (0-9); NEUT # 2.6 x10^3uL (1.8-7.7); NEUT % 61 % (31-73); PLATELET COUNT 153 x10^3/uL (140-400); RED BLOOD COUNT 3.45 x10^6/uL (3.50-5.40); RED CELL DISTRIBUTION WIDTH 14.5 % (11.5-14.5); WHITE BLOOD COUNT 4.3 x10^3/uL (4.0-11.0)
[2016-11-07 08:13] LABS: ALBUMIN 2.9 g/dL (3.4-5.0); CALCIUM 8.5 mg/dL (8.5-10.1); CREATININE 0.8 mg/dL (0.6-1.0); GFR 68.2; POTASSIUM 4.4 mmol/L (3.5-5.1); TOTAL BILIRUBIN 0.5 mg/dL (0.2-1.0); TOTAL PROTEIN 5.8 g/dL (6.4-8.2)
[2016-11-07 08:46] VITALS: BP 87/50
[2016-11-07 09:02] VITALS: BP 111/63
--- NOTE | 2016-11-07 09:24 | PN ---
DATE: 11/06/2016 SUBJECTIVE: The patient is resting, slightly propped up in bed, in no apparent distress. She is more awake, alert. She continued to be confused; however, she has eaten over 75% of her lunch. She is managed to walk with physical therapy. PHYSICAL EXAMINATION: GENERAL: When I examined her, she looked well and was clearly in no apparent respiratory distress, slightly pale, no jaundice, cyanosis, or thyromegaly. No jugular venous distension. No limb edema. VITAL SIGNS: Her heart rate was 58, blood pressure was 106/53, temperature was 97.8, respiratory rate was 31, and oxygen saturation was 100% on room air. HEAD, EYES, EARS, NOSE AND THROAT: Showed normocephalic, atraumatic. NECK: Supple. HEART: Showed normal first and second heart sounds with no gallop, rub, or murmur. CHEST: Clear to auscultation. No crepitation or rhonchi. ABDOMEN: Distended, soft, nontender. No guarding or rigidity. No organomegaly. orifices intact. Bowel sounds normal. NEUROLOGIC: She is more awake, alert, although continued to be confused. Her cranial nerves intact. She moves extremities without difficulty. She ambulates with a walker with 1 person assist. Her intake over the last 24 hours was 1400, output was 400. LABORATORY DATA: Her lab work this morning showed a white cell count 4000, hemoglobin 11, hematocrit 33, MCV 92, and platelet count of 150,000. Her chemistry showed serum sodium is down to 140, potassium 4.1, chloride 107, bicarbonate 28, anion gap of 5, BUN 20, creatinine 0.9, estimated GFR was 59 mL per minute. Her glucose was 100, calcium was 8.5. Total bilirubin is normal; however, AST, ALT, alkaline phosphatase continued to be high, although trending down. Her ammonia was only 15, total protein was 6.9, albumin 3.2. Her prothrombin time was 11, INR 1.1. Her phenytoin trough level was 16.4 and valproic acid was 40 ?g/mL, which is well within therapeutic range. ASSESSMENT: This is an 86-year-old female patient who was transferred yesterday from [facility] with altered mental status was found to be dehydrated. Her serum sodium was 148, BUN was 22. Her liver enzymes has dramatically risen including AST, ALT, alkaline phosphatase, although her bilirubin was normal. She was started on D5W at 100 mL per hour and we continued all her medication except her furosemide. She has had abdominal ultrasound to investigate the abnormal liver enzymes, the results are still pending at the time of this dictation. PLAN: My plan is to continue with the D5W. Repeat her labs tomorrow and await the results of ultrasound and decide on further management accordingly. ERICA FLORENCE MD DR: SYED/luz JOB#: [id number] / [id number]
[2016-11-07] MEDS: HALOPERIDOL LACT 5 MG/ML VIAL. IVP PRN (11:35)
[2016-11-07 11:55] VITALS: BP 100/60
[2016-11-07 13:20] VITALS: BP 141/53
[2016-11-07] MEDS ORDERED: ONDANSETRON PF 4 MG/2 ML VIAL. IV PRN ×2 (14:15→15:00)
[2016-11-07] MEDS ORDERED: HYDROmorphone PF 1 MG/ML DISP.SYRIN IV PRN (14:15)
--- NOTE | 2016-11-07 21:41 | DS ---
DATE OF DISCHARGE: 11/07/2016 HOSPITAL COURSE: The patient is an 86-year-old female patient, who was transferred from [facility] on account of altered mental status, dehydration, severe hypernatremia. Serum sodium was 148. She has also acute kidney injury and abnormal liver enzymes. She was admitted to the ICU, was started on D5W, held her valproic acid and she did actually very well. Her kidney function has improved. Her serum sodium is down from 148-138 and her kidney function came down. Her BUN came down from 22 to 13 and creatinine from 1 to 0.8. Her liver enzymes are trending down, although they continue to be slightly elevated. She has been continued to be somewhat restless, agitated, but has been able to walk with assistance and has been able to eat provided she is to eat and generally much better and it was felt that she is stable medically to go upstairs for inpatient psychiatric stabilization. PHYSICAL EXAMINATION: GENERAL: On examining her today, she looked well, slightly pale, but no jaundice, cyanosis, or thyromegaly. No jugular venous distention. No limb edema. VITAL SIGNS: Her heart rate was 68 with a blood pressure of 141/53, temperature was 98.3, respiratory rate 20, and oxygen saturation was 97%. The rest of clinical exam is stable. NEUROLOGIC: Her intake over the last 24 hour was 1880, output was 1775. LABORATORY DATA: Her lab work this morning showed a white cell count 4300, hemoglobin 11, hematocrit 31, MCV 91, and platelet count of 253,000. Her chemistry showed serum sodium is down to 138 mEq/L, potassium 4.4, chloride 104, bicarbonate 28, anion gap of 6, BUN 13, creatinine 0.8, estimated GFR was 68 mL per minute. Her glucose 112, calcium was 8.5. Total bilirubin is normal. AST, ALT, alkaline phosphatase are still elevated; however, they are trending down. Her total protein was 5.8, albumin 2.9. Her ammonia was 15, prothrombin time was 11, INR 1.1. Her phenytoin level is 16.4, which is well within therapeutic range and valproic acid was only 14. FINAL DISCHARGE DIAGNOSES: 1. Dehydration and altered mental status due to acute kidney injury and hypernatremia. 2. Deranged liver enzyme likely due to valproic acid toxicity. Other medical problems include hypertension, seizure disorder, and dementia with behavioral disorder. ERICA FLORENCE MD DR: SYED/luz JOB#: [id number] / [id number]
--- NOTE | 2016-11-07 23:57 | PN ---
DATE: 11/06/2016 PSYCHIATRIC CONSULTATION/PROGRESS NOTE This is a late entry 11/06/2106, covers elements not covered in my initial note of 11/06/2016. I met with the patient evening of 11/06/2016. I have been asked to consult on the patient since she was transferred to the ICU per Dr. Narayanan/Dr. Oneil for her dehydration, hypernatremia while she is being stabilized on the psychiatric service for her dementia with depression, delusions, and behavioral disturbance. In the ICU per nursing staff, Seroquel and Depakote have been held due to elevated LFTs. She received Ativan, Haldol morning of 11/06/2016, due to her agitation and she was screaming, pulling hair, psychotic. We have added Zyprexa p.r.n. as well. REVIEW OF SYSTEMS: The patient is not reliable for this, but no CV, , pulmonary, eye, ENT system symptoms on review. MENTAL STATUS EXAM: Oriented to herself, not very verbal. Insight, judgment, recent and remote memory, attention, concentration, fund of knowledge poor, consistent with her diagnosis. IMPRESSION: Major neurocognitive disorder, Alzheimer, vascular with depression, delusion, behavioral disturbance; anxiety disorder, unspecified; impulse control disorder, unspecified. PLAN: Add Zyprexa p.r.n. and stay off the Seroquel, Depakote for now. Maintain the rest unchanged, stabilizes medically, make further changes from a psychiatric standpoint when she is medically stable. May consider having her back on the geropsychiatry unit if behaviors, agitation, psychosis persists despite medical stabilization. MAN Leandro KO MD DR: LUCRECIA/luz JOB#: [id number] / [id number]
== END 2016-11-07 15:15 | DRG 682 ==
LOC: ICU 17:00
PROVIDERS: ADMIT Internal Medicine; ATTEND Internal Medicine
DX: N17.9 Acute kidney failure, unspecified (principal); G93.41 Metabolic encephalopathy; E87.0 Hyperosmolality and hypernatremia; F01.51 Vascular dementia, unspecified severity, with behavioral disturbance; G30.9 Alzheimer's disease, unspecified; E86.0 Dehydration; F22 Delusional disorders; F32.9 Major depressive disorder, single episode, unspecified; F41.9 Anxiety disorder, unspecified; F63.9 Impulse disorder, unspecified; G40.909 Epilepsy, unspecified, not intractable, without status epilepticus; I10 Essential (primary) hypertension; T42.6X5A Adverse effect of other antiepileptic and sedative-hypnotic drugs, initial encounter; Y92.89 Other specified places as the place of occurrence of the external cause; R74.8 Abnormal levels of other serum enzymes
CPT/HCPCS: 36415; 76705; 80053; 80164; 80185; 82140; 85025; 85610; 87641; J1630; Q0163

== ENCOUNTER 2016-11-07 14:53 | Inpatient (IN) | payer MEDICARE, OTHER ==
[~2016-11-07] VITALS: Ht 160 cm; Wt 53.6 kg
[2016-11-07] MEDS ORDERED: traZODone 50 MG TABLET. PO PRN (16:15)
[2016-11-07] MEDS ORDERED: MAG HYDROX/AL HYDROX/SIMETH 30 ML ORAL.SUSP PO PRN (16:15)
[2016-11-07] MEDS ORDERED: METHYL SALICYLATE/MENTHOL TOPICAL OINTMENT 29GM TUBE. TP PRN (16:15)
[2016-11-07] MEDS ORDERED: ACETAMINOPHEN 325 MG TABLET PO PRN (16:15)
[2016-11-07] MEDS ORDERED: MAGNESIUM HYDROXIDE 2,400 MG/30 ML ORAL.SUSP. PO PRN (16:15)
[2016-11-07 16:19] VITALS: BP 141/53
[2016-11-07] MEDS: QUEtiapine 25 MG TABLET. PO SCH ×2 (17:23→20:09)
--- NOTE | 2016-11-07 20:00 | PDOC ---
Exam Dane Demential Exam: Dane Note: Please also refer to the separate dictated note~for this date of service dictated separately.~Patient seen individually. Discussed the patient with Nursing staff reviewed the chart.~Reviewed interim history and current functioning. Reviewed vital signs,~Labs/ Radiology~and current medications noted below. Continue current treatment with the changes noted in the dictated addendum note Assessment: Vital Signs: Vital Signs Date Time Temp Pulse Resp B/P (MAP) Pulse Ox O2 Delivery O2 Flow Rate FiO2 11/07/16 16:19 98.3 68 20 141/53 (82) 97 I&O Intake and Output 11/08/16 06:59 Intake Total 50 ml Balance 50 ml Intake Oral 50 ml # Bowel Movements 1 Current Medications: Meds: Current Medications Aspirin (Children'S Aspirin) 81 mg DAILY PO ; Start 11/08/16 at 09:00 Cyanocobalamin (Vitamin B-12) 250 mcg DAILY PO ; Start 11/08/16 at 09:00 Phenytoin Sodium (Dilantin) 100 mg BID PO ; Start 11/07/16 at 21:00 Potassium Chloride (Klor-Con) 20 meq BID PO ; Start 11/07/16 at 21:00 Lorazepam (Ativan) 0.5 mg PRN TID PRN PO ANXIETY / AGITATION; Start 11/07/16 at 16:15 Olanzapine (ZyPREXA ZYDIS) 2.5 mg PRN Q4HRS PRN PO PSYCHOSIS; Start 11/07/16 at 16:15 Quetiapine Fumarate (SEROquel) 25 mg BID@1400,2100 PO ; Start 11/07/16 at 21:00 Quetiapine Fumarate (SEROquel) 37.5 mg BID@0900,1800 PO Last administered on t 17:23; Start 11/07/16 at 18:00 Sertraline HCl (Zoloft) 75 mg DAILY PO ; Start 11/08/16 at 09:00 Trazodone HCl (Desyrel) 25 mg PRN QHS PRN PO INSOMNIA; Start 11/07/16 at 16:15 Melatonin 3 mg QHS PO ; Start 11/07/16 at 21:00 Acetaminophen (Tylenol) 650 mg PRN Q6HRS PRN PO PAIN / TEMP; Start 11/07/16 at 16:15 Multi-Ingredient Ointment (Analgesic [place]) 1 beck PRN QID PRN TP MUSCLE PAIN; Start 11/07/16 at 16:15 Al Hydroxide/Mg Hydroxide (Mylanta Plus Xs) 15 ml PRN AFTMEALHC PRN PO DYSPEPSIA; Start 11/07/16 at 16:15 Magnesium Hydroxide (Milk Of Magnesia) 2,400 mg PRN QHS PRN PO CONSTIPATION; Start 11/07/16 at 16:15 Active Scripts Active Reported Seroquel (Quetiapine Fumarate) 50 Mg Tablet 37.5 Mg PO BID@0900,1800 Artificial Tears (Polyvinyl Alcohol) 15 Ml Drops 1 Drop OP PRN Q15MIN PRN Artificial Tears (Polyvinyl Alcohol) 15 Ml Drops 1 Drop OU TID Trazodone Hcl 50 Mg Tablet 25 Mg PO PRN QHS PRN Zoloft (Sertraline Hcl) 50 Mg Tablet 75 Mg PO DAILY Klor-Con M20 (Potassium Chloride) 20 Meq Tab.er.prt 20 Meq PO BID Olanzapine Odt (Olanzapine) 5 Mg Tab.rapdis 2.5 Mg PO PRN Q4HRS PRN Analgesic [place] (Methyl Salicylate/Menthol) 28 Gm Oint...g. 1 Beck TP PRN QID PRN Maalox Maximum Strength Susp (Mag Hydrox/Al Hydrox/Simeth) 355 Ml Oral.susp 15 Ml PO PRN AFTMEALHC PRN Milk Of Magnesia (Magnesium Hydroxide) 2,400 Mg/10 Ml Oral.susp 2,400 Mg PO PRN QHS PRN Depakote Sprinkle (Divalproex Sodium) 125 Mg Cap.sprink 250 Mg PO QID Vitamin B-12 (Cyanocobalamin (Vitamin B-12)) 1,000 Mcg Tablet 250 Mcg PO DAILY Vitamin D3 (Cholecalciferol (Vitamin D3)) 5,000 Unit Tablet 5,000 Unit PO DAILY Seroquel (Quetiapine Fumarate) 25 Mg Tablet 25 Mg PO BID@1400,2100 Voltaren (Diclofenac Sodium) 100 Gm Gel..gram. 1 Beck TP BID Lorazepam 0.5 Mg Tablet 0.5 Mg PO TID PRN Melatin (Melatonin) 3 Mg Tablet 3 Mg PO QHS Dilantin (Phenytoin Sodium Extended) 100 Mg Capsule 100 Mg PO BID Aspirin 81 Mg Tab.chew 81 Mg PO DAILY Diagnosis: Problems: (1) Dementia with behavioral disturbance (2) Anxiety disorder (3) Dementia in Alzheimer's disease with delusions (4) Dementia in Alzheimer's disease with depression (5) Dementia, vascular, with delusions (6) Dementia, vascular, with depression (7) Impulse control disorder NAKIA KO MD Nov 07, 2016 20:00
[2016-11-07] MEDS: POTASSIUM CHLORIDE 20 MEQ TABLET.ER. PO SCH (20:08)
[2016-11-07] MEDS: MELATONIN 3 MG TABLET PO SCH (20:08)
[2016-11-07] MEDS: PHENYTOIN SODIUM EXTENDED 100 MG CAPSULE PO SCH (20:08)
[2016-11-08 05:32] VITALS: BP 153/74
[2016-11-08 07:17] LABS: BASO % 1 % (0-3); EOS # 0.2 x10^3/uL (0.0-0.7); EOS % 6 % (0-3); HEMATOCRIT 33.1 % (36.0-47.0); LYMPH # 1.1 x10^3/uL (1.0-4.8); LYMPH % 27 % (24-48); MEAN CORPUSCULAR HEMOGLOBIN 30 pg (25-35); MEAN CORPUSCULAR HGB CONC 33 g/dL (31-37); MEAN CORPUSCULAR VOLUME 91 fL (79-100); MONO # 0.4 x10^3/uL (0.0-1.1); MONO % 11 % (0-9); NEUT # 2.4 x10^3uL (1.8-7.7); NEUT % 57 % (31-73); PLATELET COUNT 155 x10^3/uL (140-400); RED BLOOD COUNT 3.63 x10^6/uL (3.50-5.40); RED CELL DISTRIBUTION WIDTH 14.4 % (11.5-14.5); WHITE BLOOD COUNT 4.2 x10^3/uL (4.0-11.0)
[2016-11-08 08:09] LABS: ALBUMIN 3.1 g/dL (3.4-5.0); CALCIUM 8.5 mg/dL (8.5-10.1); CREATININE 0.7 mg/dL (0.6-1.0); GFR 79.5; MAGNESIUM 1.9 mg/dL (1.8-2.4); POTASSIUM 4.4 mmol/L (3.5-5.1); TOTAL BILIRUBIN 0.4 mg/dL (0.2-1.0); TOTAL PROTEIN 6.1 g/dL (6.4-8.2)
[2016-11-08 08:15] LABS: PHENY 16.4 mcg/mL (10.0-20.0)
[2016-11-08] MEDS: PHENYTOIN SODIUM EXTENDED 100 MG CAPSULE PO SCH ×2 (10:49→19:23)
[2016-11-08] MEDS: ASPIRIN 81 MG TAB.CHEW PO SCH (10:49)
[2016-11-08] MEDS: CYANOCOBALAMIN (VITAMIN B-12) 250 MCG TABLET PO SCH (10:49)
[2016-11-08] MEDS: POTASSIUM CHLORIDE 20 MEQ TABLET.ER. PO SCH ×2 (10:49→19:23)
[2016-11-08] MEDS: QUEtiapine 25 MG TABLET. PO SCH ×4 (10:50→19:24)
[2016-11-08] MEDS: SERTRALINE 50 MG TABLET. PO SCH (10:50)
[2016-11-08 16:18] VITALS: BP 111/57
--- NOTE | 2016-11-08 17:46 | HP ---
ADMIT DATE: 11/07/2016 PSYCHIATRIC ADMISSION HISTORY AND EVALUATION This is a late entry for date of service 11/07/2016and covers elements not covered in my initial note of 11/07/2016. IDENTIFYING DATA: The patient is an 86-year-old female who returns back to us from ICU, where she was transferred from a unit on account of dehydration and hypernatremia. While in the ICU, I had followed her in a psychiatric consultation, made changes in her psychotropics. Despite that, she remains extremely agitated intermittently, restless, abrasive, aggressive. Her Depakote and Seroquel were discontinued in the ICU since liver enzymes were somewhat elevated. She was medically stabilized, continued to have marked behavioral dyscontrol, psychotic symptoms in the context of severe dementia, delusions and referred back to us for psychiatric stabilization. CHIEF COMPLAINT: "I am okay." The patient was seen individually evening of 11/07/2016 for this evaluation. HISTORY OF PRESENT ILLNESS: The patient has a history of dementia, Alzheimer's, vascular type. She has been an inpatient with us in the past, most recently referred back from the [facility], [facility] for agitation, aggression, disruptive behaviors, but she was stabilized on the [facility], became dehydrated, transferred to the ICU, now back to us as noted above. She continues to have some sleep and appetite changes. No clear hallucinations, suicidal or homicidal ideation. She remains intermittently anxious, delusional, labile, crying, tearful and intermittently aggressive. PAST PSYCHIATRIC HISTORY: As above. MEDICAL HISTORY: History of seizure disorder, hypertension, dehydration, hypernatremia. DRUG ALLERGIES: Negative. CODE STATUS: DNR. DIET: Regular. MEDICATIONS: Takes her medications crushed. Current psychotropics, MRAD. EMRAD was reviewed. LABORATORY DATA: UA is negative. FAMILY HISTORY: Noncontributory. SOCIAL HISTORY: No alcohol, drug abuse, physical, sexual or elder abuse history is noted. She is not known to be a perpetrator. MENTAL STATUS EXAMINATION: The patient was seen individually evening of 11/07/2016. She is oriented to herself, anxious, restless, somewhat tearful, labile at times. Insight, judgment, recent and remote memory, attention, concentration, fund of knowledge poor, consistent with her diagnosis. REVIEW OF SYSTEMS: No CV, , pulmonary, eye, ENT system symptoms on review. Reliability poor. IMPRESSION: Major neurocognitive disorder; Alzheimer's; vascular with depression; delusion; behavioral disturbance; anxiety disorder, unspecified; impulse control disorder, unspecified. Rest diagnoses unchanged from admission as noted above. PLAN: Admit to the geropsychiatry unit at [facility]. I will see the patient daily from a psychiatric standpoint, medical followup per Dr. Narayanan/Dr. Oneil. Continue the patient on her current psychotropics, observe baseline and make further adjustments as clinically indicated. MAN Leandro KO MD DR: LUCRECIA/luz JOB#: [id number] / [id number]
[2016-11-08] MEDS: MELATONIN 3 MG TABLET PO SCH (19:22)
--- NOTE | 2016-11-08 19:51 | PDOC ---
Exam Dane Demential Exam: Dane Note: Please also refer to the separate dictated note~for this date of service dictated separately.~Patient seen individually. Discussed the patient with Nursing staff reviewed the chart.~Reviewed interim history and current functioning. Reviewed vital signs,~Labs/ Radiology~and current medications noted below. Continue current treatment with the changes noted in the dictated addendum note Assessment: Vital Signs: Vital Signs Date Time Temp Pulse Resp B/P (MAP) Pulse Ox O2 Delivery O2 Flow Rate FiO2 11/08/16 16:18 97.5 64 20 111/57 (75) 98 I&O Intake and Output 11/09/16 06:59 Intake Total 600 ml Balance 600 ml Intake Oral 600 ml Labs: Laboratory Tests Test 11/08/16 06:56 White Blood Count 4.2 x10^3/uL (4.0-11.0) Red Blood Count 3.63 x10^6/uL (3.50-5.40) Hemoglobin 11.0 g/dL (12.0-15.5) L Hematocrit 33.1 % (36.0-47.0) L Mean Corpuscular Volume 91 fL (79-100) Mean Corpuscular Hemoglobin 30 pg (25-35) Mean Corpuscular Hemoglobin Concent 33 g/dL (31-37) Red Cell Distribution Width 14.4 % (11.5-14.5) Platelet Count 155 x10^3/uL (140-400) Neutrophils (%) (Auto) 57 % (31-73) Lymphocytes (%) (Auto) 27 % (24-48) Monocytes (%) (Auto) 11 % (0-9) H Eosinophils (%) (Auto) 6 % (0-3) H Basophils (%) (Auto) 1 % (0-3) Neutrophils # (Auto) 2.4 x10^3uL (1.8-7.7) Lymphocytes # (Auto) 1.1 x10^3/uL (1.0-4.8) Monocytes # (Auto) 0.4 x10^3/uL (0.0-1.1) Eosinophils # (Auto) 0.2 x10^3/uL (0.0-0.7) Basophils # (Auto) 0.0 x10^3/uL (0.0-0.2) Sodium Level 141 mmol/L (136-145) Potassium Level 4.4 mmol/L (3.5-5.1) Chloride Level 106 mmol/L (98-107) Carbon Dioxide Level 31 mmol/L (21-32) Anion Gap 4 (6-14) L Blood Urea Nitrogen 11 mg/dL (7-20) Creatinine 0.7 mg/dL (0.6-1.0) Estimated GFR (Cockcroft-Gault) 79.5 BUN/Creatinine Ratio 16 (6-20) Glucose Level 91 mg/dL (70-99) Calcium Level 8.5 mg/dL (8.5-10.1) Magnesium Level 1.9 mg/dL (1.8-2.4) Iron Level 78 ug/dL (50-170) Total Iron Binding Capacity 208 ug/dL (250-450) L Iron Saturation 38 % (15-34) H Total Bilirubin 0.4 mg/dL (0.2-1.0) Aspartate Amino Transferase (AST) 191 U/L (15-37) H Alanine Aminotransferase (ALT) 241 U/L (14-59) H Alkaline Phosphatase 237 U/L (46-116) H Total Protein 6.1 g/dL (6.4-8.2) L Albumin 3.1 g/dL (3.4-5.0) L Albumin/Globulin Ratio 1.0 (1.0-1.7) Vitamin B12 Level 594 pg/mL (247-911) Phenytoin (Dilantin) Level 16.4 mcg/mL (10.0-20.0) Phenytoin Last Dose Date 11/07/2016 Phenytoin Last Dose Time 2100 Current Medications: Meds: Current Medications Aspirin (Children'S Aspirin) 81 mg DAILY PO Last administered on 11/08/16 10:49 ; Start 11/08/16 at 09:00 Cyanocobalamin (Vitamin B-12) 250 mcg DAILY PO Last administered on 11/08/16 10 :49; Start 11/08/16 at 09:00 Phenytoin Sodium (Dilantin) 100 mg BID PO Last administered on 11/08/16 19:23; Start 11/07/16 at 21:00 Potassium Chloride (Klor-Con) 20 meq BID PO Last administered on 11/08/16 19:23 ; Start 11/07/16 at 21:00 Lorazepam (Ativan) 0.5 mg PRN TID PRN PO ANXIETY / AGITATION; Start 11/07/16 at 16:15 Olanzapine (ZyPREXA ZYDIS) 2.5 mg PRN Q4HRS PRN PO PSYCHOSIS; Start 11/07/16 at 16:15 Quetiapine Fumarate (SEROquel) 25 mg BID@1400,2100 PO Last administered on 19:24; Start 11/07/16 at 21:00 Quetiapine Fumarate (SEROquel) 37.5 mg BID@0900,1800 PO Last administered on 17:37; Start 11/07/16 at 18:00 Sertraline HCl (Zoloft) 75 mg DAILY PO Last administered on 11/08/16 10:50; Start 11/08/16 at 09:00 Trazodone HCl (Desyrel) 25 mg PRN QHS PRN PO INSOMNIA; Start 11/07/16 at 16:15 Melatonin 3 mg QHS PO Last administered on 11/08/16 19:22; Start 11/07/16 at 21 :00 Acetaminophen (Tylenol) 650 mg PRN Q6HRS PRN PO PAIN / TEMP; Start 11/07/16 at 16:15 Multi-Ingredient Ointment (Analgesic [place]) 1 beck PRN QID PRN TP MUSCLE PAIN; Start 11/07/16 at 16:15 Al Hydroxide/Mg Hydroxide (Mylanta Plus Xs) 15 ml PRN AFTMEALHC PRN PO DYSPEPSIA; Start 11/07/16 at 16:15 Magnesium Hydroxide (Milk Of Magnesia) 2,400 mg PRN QHS PRN PO CONSTIPATION; Start 11/07/16 at 16:15 Active Scripts Active Reported Seroquel (Quetiapine Fumarate) 50 Mg Tablet 37.5 Mg PO BID@0900,1800 Artificial Tears (Polyvinyl Alcohol) 15 Ml Drops 1 Drop OP PRN Q15MIN PRN Artificial Tears (Polyvinyl Alcohol) 15 Ml Drops 1 Drop OU TID Trazodone Hcl 50 Mg Tablet 25 Mg PO PRN QHS PRN Zoloft (Sertraline Hcl) 50 Mg Tablet 75 Mg PO DAILY Klor-Con M20 (Potassium Chloride) 20 Meq Tab.er.prt 20 Meq PO BID Olanzapine Odt (Olanzapine) 5 Mg Tab.rapdis 2.5 Mg PO PRN Q4HRS PRN Analgesic [place] (Methyl Salicylate/Menthol) 28 Gm Oint...g. 1 Beck TP PRN QID PRN Maalox Maximum Strength Susp (Mag Hydrox/Al Hydrox/Simeth) 355 Ml Oral.susp 15 Ml PO PRN AFTMEALHC PRN Milk Of Magnesia (Magnesium Hydroxide) 2,400 Mg/10 Ml Oral.susp 2,400 Mg PO PRN QHS PRN Depakote Sprinkle (Divalproex Sodium) 125 Mg Cap.sprink 250 Mg PO QID Vitamin B-12 (Cyanocobalamin (Vitamin B-12)) 1,000 Mcg Tablet 250 Mcg PO DAILY Vitamin D3 (Cholecalciferol (Vitamin D3)) 5,000 Unit Tablet 5,000 Unit PO DAILY Seroquel (Quetiapine Fumarate) 25 Mg Tablet 25 Mg PO BID@1400,2100 Voltaren (Diclofenac Sodium) 100 Gm Gel..gram. 1 Beck TP BID Lorazepam 0.5 Mg Tablet 0.5 Mg PO TID PRN Melatin (Melatonin) 3 Mg Tablet 3 Mg PO QHS Dilantin (Phenytoin Sodium Extended) 100 Mg Capsule 100 Mg PO BID Aspirin 81 Mg Tab.chew 81 Mg PO DAILY Diagnosis: Problems: (1) Dementia with behavioral disturbance (2) Anxiety disorder (3) Dementia in Alzheimer's disease with delusions (4) Dementia in Alzheimer's disease with depression (5) Dementia, vascular, with delusions (6) Dementia, vascular, with depression (7) Impulse control disorder NAKIA KO MD Nov 08, 2016 19:51
[2016-11-09 05:50] VITALS: BP 156/70
[2016-11-09] MEDS: POTASSIUM CHLORIDE 20 MEQ TABLET.ER. PO SCH ×2 (07:51→19:25)
[2016-11-09] MEDS: ASPIRIN 81 MG TAB.CHEW PO SCH (07:51)
[2016-11-09] MEDS: SERTRALINE 50 MG TABLET. PO SCH (07:51)
[2016-11-09] MEDS: PHENYTOIN SODIUM EXTENDED 100 MG CAPSULE PO SCH ×2 (07:52→19:24)
[2016-11-09] MEDS: CYANOCOBALAMIN (VITAMIN B-12) 250 MCG TABLET PO SCH (07:52)
[2016-11-09] MEDS: QUEtiapine 25 MG TABLET. PO SCH ×4 (07:52→19:24)
[2016-11-09 16:13] VITALS: BP 101/57
--- NOTE | 2016-11-09 16:42 | CONS ---
DATE OF CONSULTATION: 11/08/2016 ADDENDUM The patient was admitted and was transferred to [address] [place] [address] because of the hydration, marked hypernatremia and transaminitis. She was treated with IV fluid. We held her Depakote. Her serum sodium improved. Generally, she was much better there. She was able to eat and drink, was in fact walking with minimal assistance. Her serum sodium as well as her kidney function has improved. Unfortunately, her liver enzymes continued to be elevated and was transferred back to [facility] for inpatient psychiatric stabilization. I did discontinue her Depakote as the only medication that was changed when she was admitted and coincided with a rise of liver enzymes, otherwise, she continued with all other medications, phenytoin can cause this, but she has been on phenytoin for a long time and it is controlling her seizures very well, so I did not discontinue that. ERICA FLORENCE MD DR: SYED/luz JOB#: [id number] / [id number]
[2016-11-09] MEDS: MELATONIN 3 MG TABLET PO SCH (19:24)
[2016-11-09] MEDS: LORazepam 0.5 MG TABLET PO PRN (19:24)
--- NOTE | 2016-11-09 23:23 | PDOC ---
Exam Dane Demential Exam: Dane Note: Please also refer to the separate dictated note~for this date of service dictated separately.~Patient seen individually. Discussed the patient with Nursing staff reviewed the chart.~Reviewed interim history and current functioning. Reviewed vital signs,~Labs/ Radiology~and current medications noted below. Continue current treatment with the changes noted in the dictated addendum note Assessment: Vital Signs: Vital Signs Date Time Temp Pulse Resp B/P (MAP) Pulse Ox O2 Delivery O2 Flow Rate FiO2 11/09/16 16:13 97.1 112 16 101/57 (72) 99 I&O Intake and Output 11/10/16 06:59 Intake Total 930 ml Balance 930 ml Intake Oral 930 ml Current Medications: Meds: Current Medications Aspirin (Children'S Aspirin) 81 mg DAILY PO Last administered on 11/09/16 07:51 ; Start 11/08/16 at 09:00 Cyanocobalamin (Vitamin B-12) 250 mcg DAILY PO Last administered on 11/09/16 07 :52; Start 11/08/16 at 09:00 Phenytoin Sodium (Dilantin) 100 mg BID PO Last administered on 11/09/16 19:24; Start 11/07/16 at 21:00 Potassium Chloride (Klor-Con) 20 meq BID PO Last administered on 11/09/16 19:25 ; Start 11/07/16 at 21:00 Lorazepam (Ativan) 0.5 mg PRN TID PRN PO ANXIETY / AGITATION Last administered on 11/09/16 19:24; Start 11/07/16 at 16:15 Olanzapine (ZyPREXA ZYDIS) 2.5 mg PRN Q4HRS PRN PO PSYCHOSIS; Start 11/07/16 at 16:15 Quetiapine Fumarate (SEROquel) 25 mg BID@1400,2100 PO Last administered on 19:24; Start 11/07/16 at 21:00 Quetiapine Fumarate (SEROquel) 37.5 mg BID@0900,1800 PO Last administered on 12:46; Start 11/07/16 at 18:00 Sertraline HCl (Zoloft) 75 mg DAILY PO Last administered on 11/09/16 07:51; Start 11/08/16 at 09:00 Trazodone HCl (Desyrel) 25 mg PRN QHS PRN PO INSOMNIA; Start 11/07/16 at 16:15 Melatonin 3 mg QHS PO Last administered on 11/09/16t 19:24; Start 11/07/16 at 21 :00 Acetaminophen (Tylenol) 650 mg PRN Q6HRS PRN PO PAIN / TEMP; Start 11/07/16 at 16:15 Multi-Ingredient Ointment (Analgesic [place]) 1 beck PRN QID PRN TP MUSCLE PAIN; Start 11/07/16 at 16:15 Al Hydroxide/Mg Hydroxide (Mylanta Plus Xs) 15 ml PRN AFTMEALHC PRN PO DYSPEPSIA; Start 11/07/16 at 16:15 Magnesium Hydroxide (Milk Of Magnesia) 2,400 mg PRN QHS PRN PO CONSTIPATION; Start 11/07/16 at 16:15 Active Scripts Active Reported Seroquel (Quetiapine Fumarate) 50 Mg Tablet 37.5 Mg PO BID@0900,1800 Artificial Tears (Polyvinyl Alcohol) 15 Ml Drops 1 Drop OP PRN Q15MIN PRN Artificial Tears (Polyvinyl Alcohol) 15 Ml Drops 1 Drop OU TID Trazodone Hcl 50 Mg Tablet 25 Mg PO PRN QHS PRN Zoloft (Sertraline Hcl) 50 Mg Tablet 75 Mg PO DAILY Klor-Con M20 (Potassium Chloride) 20 Meq Tab.er.prt 20 Meq PO BID Olanzapine Odt (Olanzapine) 5 Mg Tab.rapdis 2.5 Mg PO PRN Q4HRS PRN Analgesic [place] (Methyl Salicylate/Menthol) 28 Gm Oint...g. 1 Beck TP PRN QID PRN Maalox Maximum Strength Susp (Mag Hydrox/Al Hydrox/Simeth) 355 Ml Oral.susp 15 Ml PO PRN AFTMEALHC PRN Milk Of Magnesia (Magnesium Hydroxide) 2,400 Mg/10 Ml Oral.susp 2,400 Mg PO PRN QHS PRN Depakote Sprinkle (Divalproex Sodium) 125 Mg Cap.sprink 250 Mg PO QID Vitamin B-12 (Cyanocobalamin (Vitamin B-12)) 1,000 Mcg Tablet 250 Mcg PO DAILY Vitamin D3 (Cholecalciferol (Vitamin D3)) 5,000 Unit Tablet 5,000 Unit PO DAILY Seroquel (Quetiapine Fumarate) 25 Mg Tablet 25 Mg PO BID@1400,2100 Voltaren (Diclofenac Sodium) 100 Gm Gel..gram. 1 Beck TP BID Lorazepam 0.5 Mg Tablet 0.5 Mg PO TID PRN Melatin (Melatonin) 3 Mg Tablet 3 Mg PO QHS Dilantin (Phenytoin Sodium Extended) 100 Mg Capsule 100 Mg PO BID Aspirin 81 Mg Tab.chew 81 Mg PO DAILY Diagnosis: Problems: (1) Dementia with behavioral disturbance (2) Anxiety disorder (3) Dementia in Alzheimer's disease with delusions (4) Dementia in Alzheimer's disease with depression (5) Dementia, vascular, with delusions (6) Dementia, vascular, with depression (7) Impulse control disorder NAKIA KO MD Nov 09, 2016 23:23
--- NOTE | 2016-11-10 03:41 | PN ---
DATE: 11/08/2016 This late entry for 11/08/2016 covers elements not covered in my initial note. SUBJECTIVE: I met with the patient in the evening of 11/08/2016. Liver enzymes are somewhat elevated. We will repeat a liver profile on Friday. Depakote has been discontinued. She has been restless, confused in the Broda chair, not aggressive. REVIEW OF SYSTEMS: No CV, , pulmonary, eye, ENT system symptoms on review. Reliability poor. MENTAL STATUS EXAM: Oriented to herself. Insight, judgment, recent and remote memory, attention, concentration, fund of knowledge poor, consistent with her diagnosis mentioned in my initial note. PLAN: Continue current psychotropics, Reviewed drug interactions. Risk/benefit ratio favors no further change. [facility]. NAKIA KO MD DR: [email or web address]/luz JOB#: [id number] / [id number]
[2016-11-10 05:59] VITALS: BP 102/50
[2016-11-10 07:55] LABS: DIRECT BILIRUBIN 0.2 mg/dL (0.0-0.2); TOTAL BILIRUBIN 0.4 mg/dL (0.2-1.0)
[2016-11-10] MEDS: PHENYTOIN SODIUM EXTENDED 100 MG CAPSULE PO SCH ×2 (08:52→19:41)
[2016-11-10] MEDS: QUEtiapine 25 MG TABLET. PO SCH ×4 (08:52→19:42)
[2016-11-10] MEDS: SERTRALINE 50 MG TABLET. PO SCH (08:53)
[2016-11-10] MEDS: POTASSIUM CHLORIDE 20 MEQ TABLET.ER. PO SCH ×2 (08:53→19:42)
[2016-11-10] MEDS: CYANOCOBALAMIN (VITAMIN B-12) 250 MCG TABLET PO SCH (08:53)
[2016-11-10] MEDS: ASPIRIN 81 MG TAB.CHEW PO SCH (08:53)
[2016-11-10 15:49] VITALS: BP 124/89
[2016-11-10] MEDS: MELATONIN 3 MG TABLET PO SCH (19:41)
--- NOTE | 2016-11-10 21:53 | PDOC ---
Exam Dane Demential Exam: Dane Note: Please also refer to the separate dictated note~for this date of service dictated separately.~Patient seen individually. Discussed the patient with Nursing staff reviewed the chart.~Reviewed interim history and current functioning. Reviewed vital signs,~Labs/ Radiology~and current medications noted below. Continue current treatment with the changes noted in the dictated addendum note Assessment: Vital Signs: Vital Signs Date Time Temp Pulse Resp B/P (MAP) Pulse Ox O2 Delivery O2 Flow Rate FiO2 11/10/16 15:49 97.9 78 16 124/89 (101) 99 I&O Intake and Output 11/11/16 06:59 Intake Total 845 ml Balance 845 ml Intake Oral 845 ml Labs: Laboratory Tests Test 11/10/16 06:51 Total Bilirubin 0.4 mg/dL (0.2-1.0) Direct Bilirubin 0.2 mg/dL (0.0-0.2) Aspartate Amino Transferase (AST) 122 U/L (15-37) H Alanine Aminotransferase (ALT) 183 U/L (14-59) H Alkaline Phosphatase 233 U/L (46-116) H Total Protein 6.0 g/dL (6.4-8.2) L Albumin 3.0 g/dL (3.4-5.0) L Current Medications: Meds: Current Medications Aspirin (Children'S Aspirin) 81 mg DAILY PO Last administered on 11/10/16 08:53 ; Start 11/08/16 at 09:00 Cyanocobalamin (Vitamin B-12) 250 mcg DAILY PO Last administered on 11/10/16 08 :53; Start 11/08/16 at 09:00 Phenytoin Sodium (Dilantin) 100 mg BID PO Last administered on 11/10/16 19:41; Start 11/07/16 at 21:00 Potassium Chloride (Klor-Con) 20 meq BID PO Last administered on 11/10/16 19:42 ; Start 11/07/16 at 21:00 Lorazepam (Ativan) 0.5 mg PRN TID PRN PO ANXIETY / AGITATION Last administered on 11/09/16 19:24; Start 11/07/16 at 16:15 Olanzapine (ZyPREXA ZYDIS) 2.5 mg PRN Q4HRS PRN PO PSYCHOSIS; Start 11/07/16 at 16:15 Quetiapine Fumarate (SEROquel) 25 mg BID@1400,2100 PO Last administered on 19:42; Start 11/07/16 at 21:00 Quetiapine Fumarate (SEROquel) 37.5 mg BID@0900,1800 PO Last administered on 08:52; Start 11/07/16 at 18:00 Sertraline HCl (Zoloft) 75 mg DAILY PO Last administered on 11/10/16 08:53; Start 11/08/16 at 09:00 Trazodone HCl (Desyrel) 25 mg PRN QHS PRN PO INSOMNIA; Start 11/07/16 at 16:15 Melatonin 3 mg QHS PO Last administered on 11/10/16 19:41; Start 11/07/16 at 21 :00 Acetaminophen (Tylenol) 650 mg PRN Q6HRS PRN PO PAIN / TEMP Last administered on 11/10/16 15:33; Start 11/07/16 at 16:15 Multi-Ingredient Ointment (Analgesic [place]) 1 beck PRN QID PRN TP MUSCLE PAIN; Start 11/07/16 at 16:15 Al Hydroxide/Mg Hydroxide (Mylanta Plus Xs) 15 ml PRN AFTMEALHC PRN PO DYSPEPSIA; Start 11/07/16 at 16:15 Magnesium Hydroxide (Milk Of Magnesia) 2,400 mg PRN QHS PRN PO CONSTIPATION; Start 11/07/16 at 16:15 Active Scripts Active Reported Seroquel (Quetiapine Fumarate) 50 Mg Tablet 37.5 Mg PO BID@0900,1800 Artificial Tears (Polyvinyl Alcohol) 15 Ml Drops 1 Drop OP PRN Q15MIN PRN Artificial Tears (Polyvinyl Alcohol) 15 Ml Drops 1 Drop OU TID Trazodone Hcl 50 Mg Tablet 25 Mg PO PRN QHS PRN Zoloft (Sertraline Hcl) 50 Mg Tablet 75 Mg PO DAILY Klor-Con M20 (Potassium Chloride) 20 Meq Tab.er.prt 20 Meq PO BID Olanzapine Odt (Olanzapine) 5 Mg Tab.rapdis 2.5 Mg PO PRN Q4HRS PRN Analgesic [place] (Methyl Salicylate/Menthol) 28 Gm Oint...g. 1 Beck TP PRN QID PRN Maalox Maximum Strength Susp (Mag Hydrox/Al Hydrox/Simeth) 355 Ml Oral.susp 15 Ml PO PRN AFTMEALHC PRN Milk Of Magnesia (Magnesium Hydroxide) 2,400 Mg/10 Ml Oral.susp 2,400 Mg PO PRN QHS PRN Depakote Sprinkle (Divalproex Sodium) 125 Mg Cap.sprink 250 Mg PO QID Vitamin B-12 (Cyanocobalamin (Vitamin B-12)) 1,000 Mcg Tablet 250 Mcg PO DAILY Vitamin D3 (Cholecalciferol (Vitamin D3)) 5,000 Unit Tablet 5,000 Unit PO DAILY Seroquel (Quetiapine Fumarate) 25 Mg Tablet 25 Mg PO BID@1400,2100 Voltaren (Diclofenac Sodium) 100 Gm Gel..gram. 1 Beck TP BID Lorazepam 0.5 Mg Tablet 0.5 Mg PO TID PRN Melatin (Melatonin) 3 Mg Tablet 3 Mg PO QHS Dilantin (Phenytoin Sodium Extended) 100 Mg Capsule 100 Mg PO BID Aspirin 81 Mg Tab.chew 81 Mg PO DAILY Diagnosis: Problems: (1) Dementia with behavioral disturbance (2) Anxiety disorder (3) Dementia in Alzheimer's disease with delusions (4) Dementia in Alzheimer's disease with depression (5) Dementia, vascular, with delusions (6) Dementia, vascular, with depression (7) Impulse control disorder NAKIA KO MD Nov 10, 2016 21:53
--- NOTE | 2016-11-11 01:23 | PN ---
DATE: 11/09/2016 This late entry 11/09/2016 covers elements not covered in my initial note. SUBJECTIVE: The patient was seen individually in the evening of 11/09/2016. Per nursing report, the patient remains confused, up ad chon at times in a Broda chair. Not aggressive, restless, intrusive, anxious, but redirectable. REVIEW OF SYSTEMS: No CV, , eye, ENT, pulmonary system symptoms on review. Reliability poor. MENTAL STATUS EXAM: Oriented to herself. Insight, judgment, recent and remote memory, attention, concentration, fund of knowledge poor, consistent with her diagnosis as mentioned in my initial note. PLAN: Continue current psychotropics. Reviewed drug interactions. Risk/benefit ratio favors no further change at this time. MAN Leandro KO MD DR: LUCRECIA/luz JOB#: [id number] / [id number]
[2016-11-11] MEDS: LORazepam 0.5 MG TABLET PO PRN (05:17)
[2016-11-11 06:28] VITALS: BP 102/56
[2016-11-11 06:59] LABS: ALBUMIN 3.5 g/dL (3.4-5.0); ALBUMIN/GLOBULIN RATIO 1.1 (1.0-1.7); CALCIUM 9.1 mg/dL (8.5-10.1); GFR 52.7; POTASSIUM 4.3 mmol/L (3.5-5.1); TOTAL BILIRUBIN 0.4 mg/dL (0.2-1.0); TOTAL PROTEIN 6.8 g/dL (6.4-8.2)
[2016-11-11 07:34] LABS: BASO % 1 % (0-3); EOS # 0.2 x10^3/uL (0.0-0.7); EOS % 3 % (0-3); HEMATOCRIT 32.1 % (36.0-47.0); HEMOGLOBIN 10.6 g/dL (12.0-15.5); LYMPH # 1.3 x10^3/uL (1.0-4.8); LYMPH % 25 % (24-48); MEAN CORPUSCULAR HEMOGLOBIN 31 pg (25-35); MEAN CORPUSCULAR HGB CONC 33 g/dL (31-37); MEAN CORPUSCULAR VOLUME 92 fL (79-100); MONO # 0.6 x10^3/uL (0.0-1.1); MONO % 11 % (0-9); NEUT # 3.2 x10^3uL (1.8-7.7); NEUT % 61 % (31-73); PLATELET COUNT 232 x10^3/uL (140-400); RED BLOOD COUNT 3.48 x10^6/uL (3.50-5.40); RED CELL DISTRIBUTION WIDTH 14.7 % (11.5-14.5); WHITE BLOOD COUNT 5.3 x10^3/uL (4.0-11.0)
[2016-11-11] MEDS: CYANOCOBALAMIN (VITAMIN B-12) 250 MCG TABLET PO SCH (09:09)
[2016-11-11] MEDS: POTASSIUM CHLORIDE 20 MEQ TABLET.ER. PO SCH ×2 (09:09→19:14)
[2016-11-11] MEDS: ASPIRIN 81 MG TAB.CHEW PO SCH (09:09)
[2016-11-11] MEDS: PHENYTOIN SODIUM EXTENDED 100 MG CAPSULE PO SCH ×2 (09:09→19:14)
[2016-11-11] MEDS: QUEtiapine 25 MG TABLET. PO SCH ×4 (09:10→19:14)
[2016-11-11] MEDS: SERTRALINE 50 MG TABLET. PO SCH (09:10)
[2016-11-11 15:54] VITALS: BP 120/55
[2016-11-11] MEDS: MELATONIN 3 MG TABLET PO SCH (19:14)
--- NOTE | 2016-11-11 22:48 | PDOC ---
Exam Dane Demential Exam: Dane Note: Please also refer to the separate dictated note~for this date of service dictated separately.~Patient seen individually. Discussed the patient with Nursing staff reviewed the chart.~Reviewed interim history and current functioning. Reviewed vital signs,~Labs/ Radiology~and current medications noted below. Continue current treatment with the changes noted in the dictated addendum note Assessment: Vital Signs: Vital Signs Date Time Temp Pulse Resp B/P (MAP) Pulse Ox O2 Delivery O2 Flow Rate FiO2 11/11/16 15:54 97.5 60 20 120/55 (76) 99 I&O Intake and Output 11/12/16 06:59 Intake Total 960 ml Balance 960 ml Intake Oral 960 ml # Voids 2 Labs: Laboratory Tests Test 11/11/16 06:31 11/11/16 07:16 Sodium Level 139 mmol/L (136-145) Potassium Level 4.3 mmol/L (3.5-5.1) Chloride Level 104 mmol/L (98-107) Carbon Dioxide Level 26 mmol/L (21-32) Anion Gap 9 (6-14) Blood Urea Nitrogen 19 mg/dL (7-20) Creatinine 1.0 mg/dL (0.6-1.0) Estimated GFR (Cockcroft-Gault) 52.7 BUN/Creatinine Ratio 19 (6-20) Glucose Level 83 mg/dL (70-99) Calcium Level 9.1 mg/dL (8.5-10.1) Total Bilirubin 0.4 mg/dL (0.2-1.0) Aspartate Amino Transferase (AST) 117 U/L (15-37) H Alanine Aminotransferase (ALT) 188 U/L (14-59) H Alkaline Phosphatase 261 U/L (46-116) H Total Protein 6.8 g/dL (6.4-8.2) Albumin 3.5 g/dL (3.4-5.0) Albumin/Globulin Ratio 1.1 (1.0-1.7) White Blood Count 5.3 x10^3/uL (4.0-11.0) Red Blood Count 3.48 x10^6/uL (3.50-5.40) L Hemoglobin 10.6 g/dL (12.0-15.5) L Hematocrit 32.1 % (36.0-47.0) L Mean Corpuscular Volume 92 fL (79-100) Mean Corpuscular Hemoglobin 31 pg (25-35) Mean Corpuscular Hemoglobin Concent 33 g/dL (31-37) Red Cell Distribution Width 14.7 % (11.5-14.5) H Platelet Count 232 x10^3/uL (140-400) Neutrophils (%) (Auto) 61 % (31-73) Lymphocytes (%) (Auto) 25 % (24-48) Monocytes (%) (Auto) 11 % (0-9) H Eosinophils (%) (Auto) 3 % (0-3) Basophils (%) (Auto) 1 % (0-3) Neutrophils # (Auto) 3.2 x10^3uL (1.8-7.7) Lymphocytes # (Auto) 1.3 x10^3/uL (1.0-4.8) Monocytes # (Auto) 0.6 x10^3/uL (0.0-1.1) Eosinophils # (Auto) 0.2 x10^3/uL (0.0-0.7) Basophils # (Auto) 0.0 x10^3/uL (0.0-0.2) Current Medications: Meds: Current Medications Aspirin (Children'S Aspirin) 81 mg DAILY PO Last administered on 11/11/16 09:09 ; Start 11/08/16 at 09:00 Cyanocobalamin (Vitamin B-12) 250 mcg DAILY PO Last administered on 11/11/16 09 :09; Start 11/08/16 at 09:00 Phenytoin Sodium (Dilantin) 100 mg BID PO Last administered on 11/11/16 19:14; Start 11/07/16 at 21:00 Potassium Chloride (Klor-Con) 20 meq BID PO Last administered on 11/11/16 19:14 ; Start 11/07/16 at 21:00 Lorazepam (Ativan) 0.5 mg PRN TID PRN PO ANXIETY / AGITATION Last administered on 11/11/16 05:17; Start 11/07/16 at 16:15 Olanzapine (ZyPREXA ZYDIS) 2.5 mg PRN Q4HRS PRN PO PSYCHOSIS Last administered on 11/11/16 08:01; Start 11/07/16 at 16:15 Quetiapine Fumarate (SEROquel) 25 mg BID@1400,2100 PO Last administered on 19:14; Start 11/07/16 at 21:00 Quetiapine Fumarate (SEROquel) 37.5 mg BID@0900,1800 PO Last administered on 17:31; Start 11/07/16 at 18:00 Sertraline HCl (Zoloft) 75 mg DAILY PO Last administered on 11/11/16 09:10; Start 11/08/16 at 09:00 Trazodone HCl (Desyrel) 25 mg PRN QHS PRN PO INSOMNIA; Start 11/07/16 at 16:15 Melatonin 3 mg QHS PO Last administered on 11/11/16 19:14; Start 11/07/16 at 21 :00 Acetaminophen (Tylenol) 650 mg PRN Q6HRS PRN PO PAIN / TEMP Last administered on 11/10/16 15:33; Start 11/07/16 at 16:15 Multi-Ingredient Ointment (Analgesic [employer] [place]) 1 beck PRN QID PRN TP MUSCLE PAIN; Start 11/07/16 at 16:15 Al Hydroxide/Mg Hydroxide (Mylanta Plus Xs) 15 ml PRN AFTMEALHC PRN PO DYSPEPSIA; Start 11/07/16 at 16:15 Magnesium Hydroxide (Milk Of Magnesia) 2,400 mg PRN QHS PRN PO CONSTIPATION Last administered on 11/11/16 05:00; Start 11/07/16 at 16:15 Active Scripts Active Reported Seroquel (Quetiapine Fumarate) 50 Mg Tablet 37.5 Mg PO BID@0900,1800 Artificial Tears (Polyvinyl Alcohol) 15 Ml Drops 1 Drop OP PRN Q15MIN PRN Artificial Tears (Polyvinyl Alcohol) 15 Ml Drops 1 Drop OU TID Trazodone Hcl 50 Mg Tablet 25 Mg PO PRN QHS PRN Zoloft (Sertraline Hcl) 50 Mg Tablet 75 Mg PO DAILY Klor-Con M20 (Potassium Chloride) 20 Meq Tab.er.prt 20 Meq PO BID Olanzapine Odt (Olanzapine) 5 Mg Tab.rapdis 2.5 Mg PO PRN Q4HRS PRN Analgesic [place] (Methyl Salicylate/Menthol) 28 Gm Oint...g. 1 Beck TP PRN QID PRN Maalox Maximum Strength Susp (Mag Hydrox/Al Hydrox/Simeth) 355 Ml Oral.susp 15 Ml PO PRN AFTMEALHC PRN Milk Of Magnesia (Magnesium Hydroxide) 2,400 Mg/10 Ml Oral.susp 2,400 Mg PO PRN QHS PRN Depakote Sprinkle (Divalproex Sodium) 125 Mg Cap.sprink 250 Mg PO QID Vitamin B-12 (Cyanocobalamin (Vitamin B-12)) 1,000 Mcg Tablet 250 Mcg PO DAILY Vitamin D3 (Cholecalciferol (Vitamin D3)) 5,000 Unit Tablet 5,000 Unit PO DAILY Seroquel (Quetiapine Fumarate) 25 Mg Tablet 25 Mg PO BID@1400,2100 Voltaren (Diclofenac Sodium) 100 Gm Gel..gram. 1 Beck TP BID Lorazepam 0.5 Mg Tablet 0.5 Mg PO TID PRN Melatin (Melatonin) 3 Mg Tablet 3 Mg PO QHS Dilantin (Phenytoin Sodium Extended) 100 Mg Capsule 100 Mg PO BID Aspirin 81 Mg Tab.chew 81 Mg PO DAILY Diagnosis: Problems: (1) Dementia with behavioral disturbance (2) Anxiety disorder (3) Dementia in Alzheimer's disease with delusions (4) Dementia in Alzheimer's disease with depression (5) Dementia, vascular, with delusions (6) Dementia, vascular, with depression (7) Impulse control disorder NAKIA KO MD Nov 11, 2016 22:48
[2016-11-12] MEDS ORDERED: ACET325T9 PO (00:10)
--- NOTE | 2016-11-12 00:31 | PN ---
DATE: 11/11/2016 This is a late entry for 11/10/2016 and covers elements not covered in my initial note of 11/10/2016. I met with the patient evening of 11/10/2016. The patient remains confused, but less anxious, less labile, had a good night. Does have a laceration on the top of her head from a fall. Skin adhesive was placed with Steri-Strips per Dr. Oneil. REVIEW OF SYSTEMS: No CV, , pulmonary, eye, ENT system symptoms on review. Reliability poor. MENTAL STATUS EXAM: Oriented to herself. Insight, judgment, recent and remote memory, attention, concentration, fund of knowledge poor, consistent with her diagnosis as mentioned in my initial note. PLAN: Continue current psychotropics. Reviewed drug contractions, risk/benefit ratio favors no further change at this time. Tentative plans for transition to a lower level of care on 11/12/2016 on hospice. NAKIA KO MD DR: LUCRECIA/luz JOB#: [id number] / [id number]
[2016-11-12 06:37] VITALS: BP 107/72
[2016-11-12] MEDS: ASPIRIN 81 MG TAB.CHEW PO SCH (08:09)
[2016-11-12] MEDS: QUEtiapine 25 MG TABLET. PO SCH (08:09)
[2016-11-12] MEDS: CYANOCOBALAMIN (VITAMIN B-12) 250 MCG TABLET PO SCH (08:09)
[2016-11-12] MEDS: SERTRALINE 50 MG TABLET. PO SCH (08:10)
[2016-11-12] MEDS: POTASSIUM CHLORIDE 20 MEQ TABLET.ER. PO SCH (08:10)
[2016-11-12] MEDS: PHENYTOIN SODIUM EXTENDED 100 MG CAPSULE PO SCH (08:10)
--- NOTE | 2016-11-12 18:36 | PDOC ---
Exam Dane Demential Exam: Dane Note: Please also refer to the separate dictated note~for this date of service dictated separately.~Patient seen individually. Discussed the patient with Nursing staff reviewed the chart.~Reviewed interim history and current functioning. Reviewed vital signs,~Labs/ Radiology~and current medications noted below. Continue current treatment with the changes noted in the dictated addendum note Assessment: Vital Signs: Vital Signs Date Time Temp Pulse Resp B/P (MAP) Pulse Ox O2 Delivery O2 Flow Rate FiO2 11/12/16 06:37 97.5 86 20 107/72 (84) 99 I&O Intake and Output 11/13/16 07:00 Intake Total 440 ml Balance 440 ml Intake Oral 440 ml Current Medications: Meds: Current Medications Aspirin (Children'S Aspirin) 81 mg DAILY PO Last administered on 11/12/16 08:09 ; Start 11/08/16 at 09:00; Stop 11/12/16 at 15:25; Status DC Cyanocobalamin (Vitamin B-12) 250 mcg DAILY PO Last administered on 11/12/16 08 :09; Start 11/08/16 at 09:00; Stop 11/12/16 at 15:25; Status DC Phenytoin Sodium (Dilantin) 100 mg BID PO Last administered on 11/12/16 08:10; Start 11/07/16 at 21:00; Stop 11/12/16 at 15:25; Status DC Potassium Chloride (Klor-Con) 20 meq BID PO Last administered on 11/12/16 08:10 ; Start 11/07/16 at 21:00; Stop 11/12/16 at 15:25; Status DC Lorazepam (Ativan) 0.5 mg PRN TID PRN PO ANXIETY / AGITATION Last administered on 11/11/16 05:17; Start 11/07/16 at 16:15; Stop 11/12/16 at 15:26; Status DC Olanzapine (ZyPREXA ZYDIS) 2.5 mg PRN Q4HRS PRN PO PSYCHOSIS Last administered on 11/11/16 08:01; Start 11/07/16 at 16:15; Stop 11/12/16 at 15:26; Status DC Quetiapine Fumarate (SEROquel) 25 mg BID@1400,2100 PO Last administered on 19:14; Start 11/07/16 at 21:00; Stop 11/12/16 at 15:26; Status DC Quetiapine Fumarate (SEROquel) 37.5 mg BID@0900,1800 PO Last administered on 08:09; Start 11/07/16 at 18:00; Stop 11/12/16 at 15:26; Status DC Sertraline HCl (Zoloft) 75 mg DAILY PO Last administered on 11/12/16 08:10; Start 11/08/16 at 09:00; Stop 11/12/16 at 15:26; Status DC Trazodone HCl (Desyrel) 25 mg PRN QHS PRN PO INSOMNIA; Start 11/07/16 at 16:15 ; Stop 11/12/16 at 15:26; Status DC Melatonin 3 mg QHS PO Last administered on 11/11/16 19:14; Start 11/07/16 at 21 :00; Stop 11/12/16 at 15:26; Status DC Acetaminophen (Tylenol) 650 mg PRN Q6HRS PRN PO PAIN / TEMP Last administered on 11/10/16 15:33; Start 11/07/16 at 16:15; Stop 11/12/16 at 15:26; Status DC Multi-Ingredient Ointment (Analgesic [place]) 1 beck PRN QID PRN TP MUSCLE PAIN; Start 11/07/16 at 16:15; Stop 11/12/16 at 15:26; Status DC Al Hydroxide/Mg Hydroxide (Mylanta Plus Xs) 15 ml PRN AFTMEALHC PRN PO DYSPEPSIA; Start 11/07/16 at 16:15; Stop 11/12/16 at 15:26; Status DC Magnesium Hydroxide (Milk Of Magnesia) 2,400 mg PRN QHS PRN PO CONSTIPATION Last administered on 11/11/16 05:00; Start 11/07/16 at 16:15; Stop 11/12/16 at 15 :26; Status DC Active Scripts Active Reported Tylenol (Acetaminophen) 325 Mg Tablet 650 Mg PO PRN Q6HRS PRN Seroquel (Quetiapine Fumarate) 50 Mg Tablet 37.5 Mg PO BID@0900,1800 Trazodone Hcl 50 Mg Tablet 25 Mg PO PRN QHS PRN Zoloft (Sertraline Hcl) 50 Mg Tablet 75 Mg PO DAILY Klor-Con M20 (Potassium Chloride) 20 Meq Tab.er.prt 20 Meq PO BID Olanzapine Odt (Olanzapine) 5 Mg Tab.rapdis 2.5 Mg PO PRN Q4HRS PRN Analgesic [place] (Methyl Salicylate/Menthol) 28 Gm Oint...g. 1 Beck TP PRN QID PRN Maalox Maximum Strength Susp (Mag Hydrox/Al Hydrox/Simeth) 355 Ml Oral.susp 15 Ml PO PRN AFTMEALHC PRN Milk Of Magnesia (Magnesium Hydroxide) 2,400 Mg/10 Ml Oral.susp 2,400 Mg PO PRN QHS PRN Vitamin B-12 (Cyanocobalamin (Vitamin B-12)) 1,000 Mcg Tablet 250 Mcg PO DAILY Seroquel (Quetiapine Fumarate) 25 Mg Tablet 25 Mg PO BID@1400,2100 Lorazepam 0.5 Mg Tablet 0.5 Mg PO TID PRN Melatin (Melatonin) 3 Mg Tablet 3 Mg PO QHS Dilantin (Phenytoin Sodium Extended) 100 Mg Capsule 100 Mg PO BID Aspirin 81 Mg Tab.chew 81 Mg PO DAILY Diagnosis: Problems: (1) Impulse control disorder (2) Dementia, vascular, with depression (3) Dementia, vascular, with delusions (4) Dementia in Alzheimer's disease with depression (5) Dementia in Alzheimer's disease with delusions (6) Anxiety disorder NAKIA KO MD Nov 12, 2016 18:36
--- NOTE | 2016-11-13 01:33 | PN ---
DATE: 11/11/2016 This late entry on 11/11/2016 covers elements not covered in my initial note. SUBJECTIVE: I met with the patient in the evening of 11/11/2016. The patient remains confused, anxious, wandering, unsteady on her feet. REVIEW OF SYSTEMS: No CV, , pulmonary, eye, ENT system symptoms on review. Reliability poor. MENTAL STATUS EXAM: Oriented to herself. Insight, judgment, recent and remote memory, attention, concentration, fund of knowledge poor, consistent with her diagnosis mentioned in my initial note. PLAN: Continue current psychotropics. Reviewed drug contractions, risk/benefit ratio favors no further change. NAKIA KO MD DR: LUCRECIA/luz JOB#: [id number] / [id number]
--- NOTE | 2016-11-13 20:29 | DS ---
DATE OF DISCHARGE: 11/12/2016 DISCHARGE SUMMARY AND PSYCHIATRIC PROGRESS NOTE This late entry 11/12/2016 covers elements not covered in my initial note of 11/12/2016. REASON FOR ADMISSION: Please refer to the admission history for details. Briefly, the patient is an 86-year-old female who returned back to us from the ICU at [facility] after she was medically stabilized there. The patient was still confused, agitated, psychotic, aggressive, disruptive, had failed out psychiatric interventions in the ICU, referred back for inpatient psychiatric stabilization. SIGNIFICANT FINDINGS AND CLINICAL COURSE: Following admission, the patient was seen daily individually by myself, followed medically per Dr. Narayanan/Dr. Oneil. She is confused, psychotic, restless, anxious, frequently tearful. Adjustments were made in her psychotropics. She seemed to respond to a combination of Seroquel 37.5 mg b.i.d. along with 25 mg b.i.d., Zoloft 50 mg a day, melatonin 3 mg at bedtime, Ativan, trazodone and Zyprexa p.r.n. Prior to discharge, 11/12/2016, ambulation impaired. No CV, , pulmonary, eye, ENT system symptoms on review. Reliability poor. MENTAL STATUS EXAM: Oriented to herself. Insight, judgment, recent and remote memory, attention, concentration, fund of knowledge poor, consistent with her diagnosis mentioned in my initial note plan. DISCHARGE DIAGNOSES: Major neurocognitive disorder, Alzheimer vascular with depression, delusion, behavioral disturbance. Anxiety disorder, unspecified. Impulse control disorder, unspecified. Rest diagnoses unchanged from admission. DISCHARGE MEDICATIONS: Please refer to the [facility]AD. DISCHARGE INSTRUCTIONS: Outpatient psychiatric and medical followup [facility] [place] [facility]. She will be evaluated at the [facility] for possible hospice. MAN Leandro KO MD DR: LUCRECIA/luz JOB#: [id number] / [id number]
== END 2016-11-12 13:15 | DRG 56 ==
LOC: GEROPSY 15:20
PROVIDERS: ADMIT Psychiatry & Neurology Psychiatry; ATTEND Psychiatry & Neurology Psychiatry
DX: G30.9 Alzheimer's disease, unspecified (principal); G93.41 Metabolic encephalopathy; F01.51 Vascular dementia, unspecified severity, with behavioral disturbance; G40.909 Epilepsy, unspecified, not intractable, without status epilepticus; F22 Delusional disorders; F02.81 Dementia in other diseases classified elsewhere, unspecified severity, with behavioral disturbance; F32.9 Major depressive disorder, single episode, unspecified; F41.9 Anxiety disorder, unspecified; F63.9 Impulse disorder, unspecified; R26.81 Unsteadiness on feet; I10 Essential (primary) hypertension; Z66 Do not resuscitate
CPT/HCPCS: 36415; 80053; 80076; 80185; 82306; 82607; 83540; 83550; 83735; 85025

== ENCOUNTER 2017-05-01 18:44 | Inpatient (IN) | payer MEDICARE, OTHER ==
[~2017-05-01] VITALS: Ht 170.2 cm; Wt 48.7 kg
[~2017-05-01 18:44] MED LIST changes: +METO-239 PO; -METO25TA9 PO
--- NOTE | 2017-05-01 18:49 | ED.ADGEN ---
Past History Past Medical History: Anxiety, Dementia, Hypertension, Other Past Surgical History: Other Alcohol Use: None Drug Use: None Adult General Chief Complaint Chief Complaint ".. I am to just fine ...get me drink of water...".. " don't touch me..." HPI HPI Patient is a 87 year old female who presents with above hx and complaints by [facility] with hx mental status change. Pt. under recent tx. of UTI with cipro. Pt. Reportedly more agitated and difficult to re- direct. Pt. reportedly barking at dogs, increased anxiety, refusing meds, care. Pt hitting other residents and staff. Pt. on arrival very sedated. Did have dosage of Zyprexia, Xanax for her increased combative and agitation prior to arrival. Pt. Has hx. of vascular vascular dementia, psychosis, major depressive disorder with psychotic symptoms, anxiety disorder, impulse disorder , Alzheimer's, hypertension, convulsions, GERD and behavior disturbance. Pt. follows with Dr. Aguilar and Dr. Camacho. Pt. resident of [facility] since 11/12/16. Pt. to be evaluated for admission to [facility] . Review of Systems Review of Systems No complaints- Constitutional: Denies fever or chills [] Eyes: Denies change in visual acuity, redness, or eye pain [] HENT: Denies nasal congestion or sore throat [] Respiratory: Denies cough or shortness of breath [] Cardiovascular: No additional information not addressed in HPI [] GI: Denies abdominal pain, nausea, vomiting, bloody stools or diarrhea [] : Denies dysuria or hematuria [] Musculoskeletal: Denies back pain or joint pain [] Integument: Denies rash or skin lesions [] Neurologic: Denies headache, focal weakness or sensory changes [] Endocrine: Denies polyuria or polydipsia [] All other systems were reviewed and found to be within normal limits, except as documented in this note. Family History Family History Not Currently available Current Medications Current Medications Current Medications Medications (Trade) Dose Ordered Sig/Antonina Start Time Stop Time Status Last Admin Dose Admin Ceftriaxone Sodium (Rocephin Im) 1 gm 1X ONCE 05/01/17 21:15 05/01/17 21:16 DC 05/01/17 22:36 1 GM Cephalexin HCl (Keflex) 500 mg TID 05/02/17 09:00 UNV Diphenhydramine HCl (Benadryl) 50 mg STK-MED ONCE 05/01/17 19:36 05/01/17 19:37 DC Diphtheria/ Tetanus/Acell Pertussis (Boostrix) 0.5 ml ONCE ONCE 05/01/17 19:15 05/01/17 19:16 DC 05/01/17 22:36 0.5 ML Enoxaparin Sodium (Lovenox 60mg Syringe) 55 mg 1X ONCE 05/01/17 21:45 05/01/17 21:46 DC 05/01/17 22:35 55 MG Enoxaparin Sodium (Lovenox) 55 mg BID 05/02/17 09:00 05/02/17 09:00 DC Iohexol (Omnipaque 300 Mg/ml) 75 ml 1X ONCE 05/01/17 22:00 05/01/17 22:01 DC 05/01/17 22:11 75 ML Lorazepam (Ativan) 1 mg STK-MED ONCE 05/01/17 19:38 05/01/17 19:39 DC Midazolam HCl (Versed) 1 mg 1X ONCE 05/01/17 23:00 05/01/17 23:02 DC 05/01/17 22:30 1 MG Allergies Allergies Allergies Coded Allergies Type Severity Reaction Last Updated Verified No Known Drug Allergies 05/01/17 No Physical Exam Physical Exam Constitutional: , no acute distress until exam, appears chemically sedated in appearance. []Pt. later became very agitated , constantly kicking, scratching and attempt to bite staff. HENT: Normocephalic except lt. scalp hematoma, healing abrasion left side of orbit, bilateral external ears wax filled,, oropharynx dry, no oral exudates, nose normal. Poor dentition. Eyes: Pupils reactive to light, no discharge. [] Neck: Normal range of motion, no tenderness, supple, no stridor. Kyphosis Cardiovascular: Bradycardia Heart rate regular rhythm, no murmur, PMI to the left Lungs & Thorax: Bilateral breath sounds equal at apexes with scattered wheezes throughout on auscultation [] Abdomen: Bowel sounds normal, soft, no tenderness, no masses, no pulsatile masses. [] Skin: Warm, dry, no erythema, no rash. Poor turgor. Bony points contusions. Back: No tenderness, no CVA tenderness. Kyphosis Extremities: No tenderness, no cyanosis, no clubbing, ROM intact, no edema. Arthritic changes. Neurologic: Sedated, generalized motor weakness, withdraws to noxious stimuli .Very sedated.. [] Psychologic: Affect flat, mood depressed. - Later very agitated, aggressive. Current Patient Data Vital Signs Vital Signs Date Time Temp Pulse Resp B/P (MAP) Pulse Ox O2 Delivery O2 Flow Rate FiO2 05/01/17 18:45 97.5 58 16 97 Room Air Lab Results Laboratory Tests Test 05/01/17 19:12 05/01/17 19:30 White Blood Count 6.7 x10^3/uL (4.0-11.0) Red Blood Count 3.64 x10^6/uL (3.50-5.40) Hemoglobin 11.4 g/dL (12.0-15.5) L Hematocrit 34.0 % (36.0-47.0) L Mean Corpuscular Volume 93 fL (79-100) Mean Corpuscular Hemoglobin 31 pg (25-35) Mean Corpuscular Hemoglobin Concent 34 g/dL (31-37) Red Cell Distribution Width 14.9 % (11.5-14.5) H Platelet Count 203 x10^3/uL (140-400) Neutrophils (%) (Auto) 67 % (31-73) Lymphocytes (%) (Auto) 24 % (24-48) Monocytes (%) (Auto) 8 % (0-9) Eosinophils (%) (Auto) 1 % (0-3) Basophils (%) (Auto) 0 % (0-3) Neutrophils # (Auto) 4.5 x10^3uL (1.8-7.7) Lymphocytes # (Auto) 1.6 x10^3/uL (1.0-4.8) Monocytes # (Auto) 0.5 x10^3/uL (0.0-1.1) Eosinophils # (Auto) 0.1 x10^3/uL (0.0-0.7) Basophils # (Auto) 0.0 x10^3/uL (0.0-0.2) Erythrocyte Sedimentation Rate 6 (0-25) Prothrombin Time 11.5 SEC (9.4-11.4) H Prothrombin Time INR 1.1 (0.9-1.1) PTT < 21 SEC (23-33) L D-Dimer (Holli) 1.72 mg/L (0.00-0.50) H Sodium Level 143 mmol/L (136-145) Potassium Level 4.4 mmol/L (3.5-5.1) Chloride Level 105 mmol/L (98-107) Carbon Dioxide Level 28 mmol/L (21-32) Anion Gap 10 (6-14) Blood Urea Nitrogen 29 mg/dL (7-20) H Creatinine 1.3 mg/dL (0.6-1.0) H Estimated GFR (Cockcroft-Gault) 38.8 BUN/Creatinine Ratio 22 (6-20) H Glucose Level 87 mg/dL (70-99) Calcium Level 8.9 mg/dL (8.5-10.1) Magnesium Level 2.2 mg/dL (1.8-2.4) Total Bilirubin 0.5 mg/dL (0.2-1.0) Direct Bilirubin 0.2 mg/dL (0.0-0.2) Aspartate Amino Transferase (AST) 27 U/L (15-37) Alanine Aminotransferase (ALT) 26 U/L (14-59) Alkaline Phosphatase 103 U/L (46-116) Creatine Kinase 97 U/L (26-192) Creatine Kinase MB (Mass) 1.2 ng/mL (0.0-3.6) Creatine Kinase MB Relative Index 1.2 % (0-4) Troponin I Quantitative < 0.017 ng/mL (0-0.055) EH-Rwq-N-Type Natriuretic Peptide 532 pg/mL (0-449) H Total Protein 7.1 g/dL (6.4-8.2) Albumin 3.8 g/dL (3.4-5.0) Albumin/Globulin Ratio 1.2 (1.0-1.7) Lipase 179 U/L (73-393) Urine Collection Type U cath Urine Color Yellow Urine Clarity Hazy Urine pH 8.5 Urine Specific [place] 1.015 Urine Protein 30 mg/dl (NEG-TRACE) Urine Glucose (UA) Neg mg/dL (NEG) Urine Ketones (Stick) 15 mg/dL (NEG) Urine Blood Neg (NEG) Urine Nitrite Neg (NEG) Urine Bilirubin Neg (NEG) Urine Urobilinogen Dipstick 4 mg/dL (0.2 mg/dL) Urine Leukocyte Esterase Trace (NEG) Urine RBC 1-2 /HPF (0-2) Urine WBC 11-20 /HPF (0-4) Urine Squamous Epithelial Cells None /LPF Urine Transitional Epithelial Cells Few /LPF Urine Bacteria 0 /HPF (0-FEW) Urine Hyaline Casts Mod /HPF Urine Mucus Mod /LPF Urine Opiates Screen Neg (NEG) Urine Methadone Screen Neg (NEG) Urine Barbiturates Neg (NEG) Urine Phencyclidine Screen Neg (NEG) Urine Amphetamine/Methamphetamine Neg (NEG) Urine Benzodiazepines Screen Pos (NEG) Urine Cocaine Screen Neg (NEG) Urine Cannabinoids Screen Neg (NEG) Urine Ethyl Alcohol Neg (NEG) EKG EKG My interpretation of EKG shows a sinus bradycardia at 53 beats per minute. There is some nonspecific T-wave changes and anterior septal changes but no findings of acute STEMI with contralateral changes[] Radiology/Procedures Radiology/Procedures My interpretation of chest x-ray shows cardiomegaly. Parenchymal scarring, emphysema type pattern. Marked degenerative joint changes. My interpretation CT head shows scalp hematoma, no obvious fracture, shift, mass , edema, or bleed. Does have findings of marked atrophy. Does have findings of marked degenerative joint changes in cervical spine but no obvious fracture dislocation. CT of chest shows no obvious PE does have cardiomegaly and calcification the coronary arteries and aorta. Does have some emphysema and blebs formations.. Basilar scarring/infiltrate. See formal report when available.. Ultrasound pending at time of admission Course & Med Decision Making Course & Med Decision Making Pertinent Labs and Imaging studies reviewed. (See chart for details) During workup patient became very aggressive and attempting to bite, scratched , and kick staff. Would not lay still for radiographic exams. Patient required chemical sedation in order to complete lab work, CT and x- rays.. Patient to be admitted to [facility] Unit Dr. Garcia. Consult Dr. Narayanan for followup of Medical issues in AM , pending labs and ultrasound. [] Final Impression Final Impression 1. Mental Status Change- Aggressive Behavior 2. Dementia-Vascular and Alzheimer's 3. Hx Recent UTI[]Dx 4. Hx. Psychosis 5. Hx. of Aggressive Behavior 6. Hx. of Depression 7. Hx. GERD 8. Hx. of Impulse Disorders 9. Hx of HTN 10.Elevated D -dimer 11.Scalp Hematoma 12. Parenchymal scarring/lower lobe infiltrates 13. Anemia Problems: Dragon Disclaimer Dragon Disclaimer This electronic medical record was generated, in whole or in part, using a voice recognition dictation system. SERENITY DE LA ROSA MD May 01, 2017 18:49
[2017-05-01] MEDS ORDERED: DIPHTH,PERTUSS(ACELL),TET TOX 0.5 ML DISP.SYRIN. VAX IM ONE (19:15)
[2017-05-01] MEDS ORDERED: diphenhydrAMINE 50 MG/ML VIAL ONE (19:36)
[2017-05-01] MEDS ORDERED: LORazepam 1 MG TABLET ONE (19:38)
[2017-05-01] MEDS ORDERED: LORazepam 2 MG/ML VIAL IM ONE (19:45)
[2017-05-01] MEDS ORDERED: diphenhydrAMINE 50 MG/ML VIAL IM ONE (19:45)
[2017-05-01 19:47] LABS: BASO % 0 % (0-3); EOS # 0.1 x10^3/uL (0.0-0.7); EOS % 1 % (0-3); HEMOGLOBIN 11.4 g/dL (12.0-15.5); LYMPH # 1.6 x10^3/uL (1.0-4.8); LYMPH % 24 % (24-48); MEAN CORPUSCULAR HEMOGLOBIN 31 pg (25-35); MEAN CORPUSCULAR HGB CONC 34 g/dL (31-37); MEAN CORPUSCULAR VOLUME 93 fL (79-100); MONO # 0.5 x10^3/uL (0.0-1.1); MONO % 8 % (0-9); NEUT # 4.5 x10^3uL (1.8-7.7); NEUT % 67 % (31-73); PLATELET COUNT 203 x10^3/uL (140-400); RED BLOOD COUNT 3.64 x10^6/uL (3.50-5.40); RED CELL DISTRIBUTION WIDTH 14.9 % (11.5-14.5); WHITE BLOOD COUNT 6.7 x10^3/uL (4.0-11.0)
[2017-05-01 19:56] LABS: ALBUMIN 3.8 g/dL (3.4-5.0); ALBUMIN/GLOBULIN RATIO 1.2 (1.0-1.7); CALCIUM 8.9 mg/dL (8.5-10.1); CREATININE 1.3 mg/dL (0.6-1.0); DIRECT BILIRUBIN 0.2 mg/dL (0.0-0.2); GFR 38.8; MAGNESIUM 2.2 mg/dL (1.8-2.4); POTASSIUM 4.4 mmol/L (3.5-5.1); TOTAL BILIRUBIN 0.5 mg/dL (0.2-1.0); TOTAL PROTEIN 7.1 g/dL (6.4-8.2)
[2017-05-01] MEDS ORDERED: MIDAZOLAM HCL PF 5 MG/5 ML VIAL. ONE (20:25)
[2017-05-01] MEDS ORDERED: MIDAZOLAM HCL PF 5 MG/5 ML VIAL. IV ONE ×3 (20:30→23:00)
[2017-05-01 20:39] LABS: AMPHETAMINE/METHAMPHETAMINE NEG (NEG); BARBITURATES NEG (NEG); BENZODIAZEPINES POS (NEG); CANNABINOIDS NEG (NEG); COCAINE NEG (NEG); METHADONE NEG (NEG); OPIATES NEG (NEG); PHENCYCLIDINE NEG (NEG)
[2017-05-01 20:46] LABS: BILIRUBIN,URINE NEG (NEG); CLARITY,URINE HAZY; COLOR,URINE YELLOW; GLUCOSE,URINE NEG (NEG); NITRITE,URINE NEG (NEG); UROBILINOGEN,URINE 4 mg/dL (0.2 mg/dL)
[2017-05-01 20:47] LABS: BACTERIA,URINE 0 /HPF (0-FEW)
[2017-05-01 20:49] LABS: HYALINE CASTS, URINE MOD /HPF
[2017-05-01] MEDS ORDERED: MIDAZOLAM HCL PF 5 MG/5 ML VIAL. NS ONE (21:00)
--- NOTE | 2017-05-01 21:08 | RAD ---
EXAM: Head and maxillofacial bone CT without contrast; cervical spine CT without contrast. HISTORY: Fall. TECHNIQUE: Computed tomographic images of the head, maxillofacial bones and cervical spine were obtained without contrast. *One or more of the following individualized dose reduction techniques were utilized for this examination: 1. Automated exposure control. 2. Adjustment of the mA and/or kV according to patient size. 3. Use of iterative reconstruction technique. COMPARISON: 09/24/2016. FINDINGS: Head: There is no acute or subacute extra-axial or intraparenchymal hemorrhage. There is no mass effect or midline shift. There is ventricular enlargement due to cerebral atrophy. There is extensive decreased attenuation throughout the cerebral white matter, likely due to chronic small vessel disease. No fracture is seen. Maxillofacial bones: There is a lateral predominant left periorbital soft tissue hematoma. There is anterior inferior medial left maxillary sinus wall, likely due to a developing mental foramen more than fracture. There is left greater than right orbital band keratopathy, an incidental finding. There is mild paranasal sinus mucosal thickening. The ostiomeatal units are patent. There is minimal rightward nasal septal deviation. Cervical spine: There is mild multilevel listhesis. There is degenerative endplate remodeling with disc space narrowing and osteophytosis primarily at C5-C6. There is advanced facet arthropathy at multiple levels. No fracture is seen. There is calcified plaque within the carotid bifurcations. The lung apices demonstrate pleural parenchymal scarring. At C2-C3, there is a disc bulge. There is moderate facet arthropathy. There is left uncovertebral arthropathy. There is minimal left foraminal stenosis. At C3-C4, there is a disc bulge and endplate remodeling. There is mild right and severe left facet arthropathy. There is left uncovertebral arthropathy. There is moderate left foraminal stenosis. At C4-C5, there is a disc bulge and endplate remodeling. There is severe facet arthropathy. There is uncovertebral arthropathy. There is mild bilateral foraminal stenosis. At C5-C6, there is a disc bulge and endplate osteophytosis. There is severe facet arthropathy. There is uncovertebral arthropathy. There is severe bilateral foraminal stenosis. At C6-C7, there is a disc bulge and endplate osteophytosis. There is moderate facet arthropathy. There is no stenosis. IMPRESSION: 1. Small lateral left periorbital soft tissue hematoma. There is linear lucency traversing the anterior medial inferior left maxillary sinus wall which is likely developmental given the absence of maxillary sinus fluid to suggest a nondisplaced fracture. 2. No acute intracranial finding or evidence of acute cervical spine trauma. 3. Scattered areas of hypodensity within the cerebral white matter, likely due to chronic small vessel disease. 4. Cerebral atrophy. 5. Multilevel degenerative change within the cervical spine, described above. Electronically signed by: Jesenia Barrett MD (05/01/2017 9:05 PM) [facility]
[2017-05-01 21:12] LABS: SEDIMENTATION RATE 6 (0-25)
[2017-05-01] MEDS ORDERED: cefTRIAXone IM 1 GM VIAL IM ONE (21:15)
[2017-05-01] MEDS ORDERED: ENOXAPARIN ** NOTE DOSE ** SYRINGE SQ ONE ×2 (21:45)
[2017-05-01] MEDS ORDERED: IOHEXOL 300 MG/ML 75 ML VIAL. IV ONE (22:00)
--- NOTE | 2017-05-01 22:47 | RAD ---
EXAM: CT angiography of the chest with intravenous contrast. HISTORY: Dyspnea. Elevated d-dimer. TECHNIQUE: Computed tomographic images of the chest were obtained following the administration of 60 cc Omnipaque 300 intravenous contrast according to angiography protocol. Multiplanar reformatting was performed and 3-dimensional maximum intensity projection images were obtained. *One or more of the following individualized dose reduction techniques were utilized for this examination: 1. Automated exposure control. 2. Adjustment of the mA and/or kV according to patient size. 3. Use of iterative reconstruction technique. COMPARISON: None. FINDINGS: There is no evidence of pulmonary embolism. There is cardiomegaly. No aortic aneurysm or dissection is seen. There is calcified atherosclerotic plaque within the aorta and coronary arteries. No pathologically enlarged mediastinal or hilar lymph node is seen. There is no pneumothorax or pleural effusion. There is a small right apical lab and biapical pleural parenchymal scarring. There is bilateral posterior dependent and basilar atelectasis. There is a suspected superimposed bilateral lower lobe and lingular interstitial infiltrate. There is no consolidation. There is a 3 mm nodular opacity within the lateral left upper lobe. There is linear hypodensity within the left aspect of the aorta at the diaphragmatic hiatus, likely due to a tiny amount of mural thrombus rather than a tiny fenestrated dissection flap. There are degenerative changes within the spine. There is no acute osseous finding. IMPRESSION: 1. No evidence of pulmonary embolism. 2. Bilateral lower lobe and posterior dependent atelectasis with suspected superimposed lower lobe interstitial infiltrate. There is no consolidated infiltrate. 3. Cardiomegaly with coronary artery and aortic atherosclerosis. There is a tiny linear filling defect within the lateral left aorta at the level of the diaphragmatic hiatus, likely due to tiny amount of mural thrombus of no clinical significance rather than a tiny fenestrated dissection flap. 4. 3 mm nodular opacity within the left upper lobe. Follow-up can be performed according to Fleischner Society criteria if clinically indicated. Fleischner Society recommendations (Radiology 2005; 237; 395-400): In a low risk patient: <4mm - No follow up required. >4-6mm- 12 month follow up, if unchanged, no further follow up. >6-8mm- 6-12 month follow up, then at 18-24 months if no change. >8mm- 3, 9, 24 month follow up or consideration of PET/CT. In a high risk patient: <4mm - 12 month follow up, if unchanged then no further follow up. >4-6mm- 6-12 month follow up, then at 18-24 months if no change. >6-8mm- 3-6 month follow up, then at 9-12 months and 24 months if no change >8mm- Same as for low risk patient. Electronically signed by: Jesenia Barrett MD (05/01/2017 10:44 PM) [facility]
--- NOTE | 2017-05-01 23:22 | EKG ---
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
[2017-05-02 00:45] VITALS: BP 180/80
[2017-05-02] MEDS ORDERED: DIVA125C PO ×2 (00:47)
[2017-05-02] MEDS ORDERED: ALPR0.25 PO (00:47)
[2017-05-02] MEDS ORDERED: SENN-6 PO (00:47)
[2017-05-02] MEDS ORDERED: SERT100T PO (00:47)
[2017-05-02] MEDS ORDERED: LORA2ORA8 PO (00:47)
[2017-05-02] MEDS ORDERED: POTA20PA PO (00:47)
[2017-05-02 01:28] VITALS: BP 153/60
[2017-05-02 01:36] LABS: VAL ACID 29 mcg/mL (50-100)
[2017-05-02 02:34] LABS: INFLUENZA A PATIENT NEGATIVE (NEGATIVE); INFLUENZA B PATIENT NEGATIVE (NEGATIVE)
[2017-05-02 06:24] VITALS: BP 136/64
[2017-05-02] MEDS ORDERED: levoFLOXacin 500 MG TABLET PO SCH (07:30)
--- NOTE | 2017-05-02 08:32 | RAD ---
Portable chest, 05/01/2017: History: Fall Comparison is made to a study from 10/27/2016. The heart size and pulmonary vascularity are normal. No pulmonary infiltrates are seen. There are prominent costochondral ossification is projected over both hemithoraces. There is no evidence of pleural fluid. The bony structures are demineralized. Scattered degenerative changes are evident in the spine. IMPRESSION: No acute cardiopulmonary abnormality is detected.
[2017-05-02] MEDS: LACTOBACILLUS RHAMNOSUS GG 1 CAPSULE. PO SCH ×2 (08:53→20:03)
[2017-05-02] MEDS: SERTRALINE 100 MG TABLET. PO SCH (08:53)
[2017-05-02] MEDS: CEPHALEXIN 250 MG CAPSULE PO SCH ×3 (08:54→20:02)
[2017-05-02] MEDS: ALPRAZolam 0.25 MG TABLET PO SCH ×4 (08:54→19:59)
[2017-05-02] MEDS: DIVALPROEX 125 MG CAP.SPRINK PO SCH ×3 (08:54→20:03)
[2017-05-02] MEDS ORDERED: ENOXAPARIN 40 MG/0.4 ML DISP.SYRIN. SQ SCH (09:00)
--- NOTE | 2017-05-02 14:57 | HP ---
ADMIT DATE: 05/02/2017 MEDICAL HISTORY AND PHYSICAL FOR [facility] REASON FOR ADMISSION TO [facility]: This is an 87-year-old female who came from ____ [facility] in [place] where she has been banging on doors and windows, having increased anxiety, refusing her meds, refusing cares, and pushing residents, onset of symptoms not stated. She has 3 previous admissions [facility] the [facility] in September 2016 and twice in October 2016, with late October going into November 2016. PAST MEDICAL HISTORY: Hypertension, seizure disorder, dementia with impulse control disorder, left facial cancer. SOCIAL HISTORY: shelter resident. No smoking or drinking alcohol. MEDICATIONS: Reviewed and are available on the MAR. ALLERGIES: None. REVIEW OF SYSTEMS: The patient is very restless, moving and walking around and unable to answer the questions. She is very agitated. OBJECTIVE: VITAL SIGNS: Height 67 inches, weight 113 pounds, blood pressure 136/64, temperature 97.2, pulse 57, respirations 18, pulse ox 98% on room air. GENERAL: Frail 87-year-old who is agitated. The area surrounding the left eye has a large what appears to be a squamous cell carcinoma that appears not to be treated. There are some ulcerations. HEENT: Eyes with entropion as well as some matting of the eyelids without drainage. She wears glasses. Her nose is patent. Her throat is clear. Tongue is slightly dry. NECK: Supple. LUNGS: Clear to auscultation. CARDIOVASCULAR: Regular rhythm and rate. ABDOMEN: Soft, nontender. EXTREMITIES: Without edema. Overall appearance, very frail. Gait is unsteady. NEUROLOGIC: Cranial nerves could not be assessed. Hearing appears normal. Vision appears normal. LABORATORY DATA: Hemoglobin 11.4, hematocrit 34.0. BUN 29, creatinine 1.3. Other studies are pending. D-dimer was 1.72. She had a CT of the chest, which reveals no evidence of pulmonary embolism, bilateral lower lobe atelectasis possibly with pneumonia. The patient has no symptoms; however. Cardiomegaly with coronary artery atherosclerosis, 3 mm large nodular opacity within the left upper lobe. ASSESSMENT: 1. Squamous cell carcinoma of the face 2. Questionable metastasis with lung nodule, left upper lobe. 3. Elevated D-dimer with negative pulmonary embolism. 4. Bilateral lower lobe atelectasis with possible infiltrates. The patient does not have a white count, fever, or any respiratory symptoms, doubt pneumonia. 5. Chronic kidney disease stage 3. 6. Dementia with behavior disturbance. 7. Hypertension. 8. Seizure disorder. PLAN: Follow along with Dr. Garcia and treat her medical conditions. Make quiries about her face with the nursing facility. ALVARO PENALOZA DO DR: DONIS/luz JOB#: [id number] / [id number]
[2017-05-02 16:07] VITALS: BP 115/50
[2017-05-02 19:13] LABS: THYROXINE 4.3 ug/dL (4.5-12.0)
[2017-05-02] MEDS ORDERED: METHYL SALICYLATE/MENTHOL TOPICAL OINTMENT 29GM TUBE. TP PRN (19:30)
[2017-05-02] MEDS ORDERED: MAG HYDROX/AL HYDROX/SIMETH 30 ML ORAL.SUSP PO PRN (19:30)
[2017-05-02] MEDS ORDERED: ACETAMINOPHEN 325 MG TABLET PO PRN (19:30)
[2017-05-02] MEDS ORDERED: MAGNESIUM HYDROXIDE 2,400 MG/30 ML ORAL.SUSP. PO PRN (19:45)
--- NOTE | 2017-05-02 19:55 | PDOC ---
Exam Note: Dane Note: Please also refer to the separate dictated note~for this date of service dictated separately.~Patient seen individually. Discussed the patient with Nursing staff reviewed the chart.~Reviewed interim history and current functioning. Reviewed vital signs,~Labs/ Radiology~and current medications noted below. Continue current treatment with the changes noted in the dictated addendum note Assessment: Vital Signs: Vital Signs Date Time Temp Pulse Resp B/P (MAP) Pulse Ox O2 Delivery O2 Flow Rate FiO2 05/02/17 16:07 97.4 79 24 115/50 (71) 96 05/01/17 23:40 Room Air I&O Intake and Output 05/02/17 07:00 # Voids 1 Labs: Laboratory Tests Test 05/02/17 02:00 Lactic Acid Level 0.8 mmol/L (0.4-2.0) Influenza Type A (Rapid) Negative (NEGATIVE) Influenza Type B (Rapid) Negative (NEGATIVE) Current Medications: Meds: Current Medications Diphtheria/ Tetanus/Acell Pertussis (Boostrix) 0.5 ml ONCE ONCE VAX IM Last administered on 05/01/17at 22:36; Start 05/01/17 at 19:15; Stop 05/01/17 at 19:16 ; Status DC Lorazepam (Ativan) 2 mg 1X ONCE IM Last administered on 05/01/17at 19:45; Start 05/01/17 at 19:45; Stop 05/01/17 at 19:46; Status DC Diphenhydramine HCl (Benadryl) 50 mg 1X ONCE IM Last administered on at 19:45; Start 05/01/17 at 19:45; Stop 05/01/17 at 19:46; Status DC Diphenhydramine HCl (Benadryl) 50 mg STK-MED ONCE .ROUTE ; Start 05/01/17 at 19: 36; Stop 05/01/17 at 19:37; Status DC Lorazepam (Ativan) 1 mg STK-MED ONCE .ROUTE ; Start 05/01/17 at 19:38; Stop at 19:39; Status DC Midazolam HCl (Versed) 2 mg 1X ONCE IV ; Start 05/01/17 at 20:30; Stop at 20:31; Status DC Midazolam HCl (Versed) 5 mg STK-MED ONCE .ROUTE ; Start 05/01/17 at 20:25; Stop 05/01/17 at 20:26; Status DC Midazolam HCl (Versed) 5 mg 1X ONCE NS Last administered on 05/01/17at 20:40; Start 05/01/17 at 21:00; Stop 05/01/17 at 21:01; Status DC Ceftriaxone Sodium (Rocephin Im) 1 gm 1X ONCE IM Last administered on at 22:36; Start 05/01/17 at 21:15; Stop 05/01/17 at 21:16; Status DC Enoxaparin Sodium (Lovenox 60mg Syringe) 50 mg 1X ONCE SQ ; Start 05/01/17 at 21:45; Stop 05/01/17 at 21:45; Status DC Enoxaparin Sodium (Lovenox) 55 mg BID SQ ; Start 05/02/17 at 09:00; Stop at 09:00; Status DC Enoxaparin Sodium (Lovenox 60mg Syringe) 55 mg 1X ONCE SQ Last administered on 05/01/17at 22:35; Start 05/01/17 at 21:45; Stop 05/01/17 at 21:46; Status DC Iohexol (Omnipaque 300 Mg/ml) 75 ml 1X ONCE IV Last administered on 05/01/17at 22:11; Start 05/01/17 at 22:00; Stop 05/01/17 at 22:01; Status DC Midazolam HCl (Versed) 5 mg 1X ONCE IV ; Start 05/01/17 at 22:15; Stop at 22:18; Status DC Midazolam HCl (Versed) 1 mg 1X ONCE IV Last administered on 05/01/17at 22:30; Start 05/01/17 at 23:00; Stop 05/01/17 at 23:02; Status DC Cephalexin HCl (Keflex) 500 mg TID PO Last administered on 05/02/17at 14:32; Start 05/02/17 at 09:00 Alprazolam (Xanax) 0.25 mg QID PO Last administered on 05/02/17at 17:32; Start 05/02/17 at 09:00; Stop 05/02/17 at 19:27; Status DC Divalproex Sodium (Depakote Sprinkles) 125 mg BID92 PO Last administered on at 14:31; Start 05/02/17 at 09:00 Divalproex Sodium (Depakote Sprinkles) 500 mg QHS PO ; Start 05/02/17 at 21:00 Lorazepam (Ativan) 0.5 mg PRN Q4HRS PRN PO ANXIETY / AGITATION; Start 05/02/17 at 01:00 Lorazepam (Ativan Intensol) 0.5 mg PRN Q4HRS PRN PO ANXIETY / AGITATION; Start 05/02/17 at 01:00 Olanzapine (ZyPREXA ZYDIS) 5 mg QHS PO ; Start 05/02/17 at 21:00 Sertraline HCl (Zoloft) 100 mg DAILY PO Last administered on 05/02/17at 08:53; Start 05/02/17 at 09:00 Levofloxacin (Levaquin) 500 mg DAILY06 PO Last administered on 05/02/17at 08:53 ; Start 05/02/17 at 07:30; Stop 05/02/17 at 10:36; Status DC Lactobacillus Rhamnosus (Culturelle) 1 cap BID PO Last administered on at 08:53; Start 05/02/17 at 09:00 Levofloxacin (Levaquin) 250 mg DAILY06 PO ; Start 05/03/17 at 06:00 Alprazolam (Xanax) 0.25 mg TID PO ; Start 05/02/17 at 21:00; Stop 05/06/17 at 20 :59 Alprazolam (Xanax) 0.25 mg BID PO ; Start 05/06/17 at 21:00; Stop 05/10/17 at 08: 59 Alprazolam (Xanax) 0.25 mg DAILY PO ; Start 05/10/17 at 09:00; Stop 05/14/17 at 08 :59 Mirtazapine (Remeron) 7.5 mg QHS PO ; Start 05/02/17 at 21:00 Acetaminophen (Tylenol) 650 mg PRN Q6HRS PRN PO PAIN; Start 05/02/17 at 19:30 Aspirin (Children'S Aspirin) 81 mg DAILY PO ; Start 05/03/17 at 09:00 Cyanocobalamin (Vitamin B-12) 250 mcg DAILY PO ; Start 05/03/17 at 09:00 Al Hydroxide/Mg Hydroxide (Mylanta Plus Xs) 15 ml PRN AFTMEALHC PRN PO DYSPEPSIA; Start 05/02/17 at 19:30 Multi-Ingredient Ointment (Analgesic [place]) 1 beck PRN QID PRN TP MUSCLE PAIN; Start 05/02/17 at 19:30 Phenytoin Sodium (Dilantin) 100 mg BID PO ; Start 05/02/17 at 21:00 Senna/Docusate Sodium (Senna Plus) 1 tab BID PO ; Start 05/02/17 at 21:00 Magnesium Hydroxide (Milk Of Magnesia) 2,400 mg PRN QHS PRN PO CONSTIPATION; Start 05/02/17 at 19:45 Potassium Chloride (Klor-Con) 20 meq DAILYWBKFT PO ; Start 05/03/17 at 08:00 Active Scripts Active Reported Klor-Con (Potassium Chloride) 20 Meq Packet 20 Meq PO DAILY Xanax (Alprazolam) 0.25 Mg Tablet 0.25 Mg PO QID Zoloft (Sertraline Hcl) 100 Mg Tablet 100 Mg PO DAILY Lorazepam Intensol (Lorazepam) 2 Mg/1 Ml Oral.conc 0.5 Mg PO PRN Q4HRS PRN Senna S Tablet (Sennosides/Docusate Sodium) 1 Each Tablet 1 Tab PO BID Depakote Sprinkle (Divalproex Sodium) 125 Mg Cap.sprink 500 Mg PO QHS Depakote Sprinkle (Divalproex Sodium) 125 Mg Cap.sprink 125 Mg PO BID92 Tylenol (Acetaminophen) 325 Mg Tablet 650 Mg PO PRN Q6HRS PRN Olanzapine Odt (Olanzapine) 5 Mg Tab.rapdis 5 Mg PO QHS Analgesic [place] (Methyl Salicylate/Menthol) 28 Gm Oint...g. 1 Beck TP PRN QID PRN Maalox Maximum Strength Susp (Mag Hydrox/Al Hydrox/Simeth) 355 Ml Oral.susp 15 Ml PO PRN AFTMEALHC PRN Milk Of Magnesia (Magnesium Hydroxide) 2,400 Mg/10 Ml Oral.susp 2,400 Mg PO PRN QHS PRN Vitamin B-12 (Cyanocobalamin (Vitamin B-12)) 1,000 Mcg Tablet 250 Mcg PO DAILY Lorazepam 0.5 Mg Tablet 0.5 Mg PO PRN Q4HRS PRN Dilantin (Phenytoin Sodium Extended) 100 Mg Capsule 100 Mg PO BID Aspirin 81 Mg Tab.chew 81 Mg PO DAILY I have reviewed the current psychotropics carefully including drug interactions. Risk benefit ratio favors no change other than as noted in my dictated progress note. 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
[2017-05-02] MEDS: SENNOSIDES/DOCUSATE 8.6/50MG TABLET. PO SCH (19:59)
[2017-05-02] MEDS: PHENYTOIN SODIUM EXTENDED 100 MG CAPSULE PO SCH (20:02)
[2017-05-02] MEDS ORDERED: MIRTAZAPINE 7.5 MG TABLET. PO SCH (21:00)
[2017-05-02 23:08] LABS: HEMOGLOBIN A1C 4.3 % (4.8-5.6)
[2017-05-03] MEDS: LORazepam 0.5 MG TABLET PO PRN ×2 (02:46→11:53)
[2017-05-03] MEDS: DIVALPROEX 125 MG CAP.SPRINK PO SCH ×3 (07:50→20:26)
[2017-05-03] MEDS: SERTRALINE 100 MG TABLET. PO SCH (07:50)
[2017-05-03] MEDS: CEPHALEXIN 250 MG CAPSULE PO SCH ×3 (07:50→20:27)
[2017-05-03] MEDS: LACTOBACILLUS RHAMNOSUS GG 1 CAPSULE. PO SCH ×2 (07:50→20:26)
[2017-05-03] MEDS: SENNOSIDES/DOCUSATE 8.6/50MG TABLET. PO SCH ×2 (07:50→20:26)
[2017-05-03] MEDS: levoFLOXacin 250 MG TABLET PO SCH (07:50)
[2017-05-03] MEDS: PHENYTOIN SODIUM EXTENDED 100 MG CAPSULE PO SCH ×2 (07:51→20:26)
[2017-05-03] MEDS: ALPRAZolam 0.25 MG TABLET PO SCH ×3 (07:59→20:27)
[2017-05-03] MEDS: CYANOCOBALAMIN (VITAMIN B-12) 250 MCG TABLET PO SCH (07:59)
[2017-05-03] MEDS: POTASSIUM CHLORIDE 20 MEQ TABLET.ER. PO SCH (07:59)
[2017-05-03] MEDS: ASPIRIN 81 MG TAB.CHEW PO SCH (08:01)
--- NOTE | 2017-05-03 15:10 | PDOC ---
PROGRESS NOTES Diagnosis Problem Problems Medical Problems: (1) Mental status change Status: Acute Assessment 1. Left face lesion (Skin cancer), no cellulitis. Will apply FELICITA for 5 days to see if we can get to heal. Requesting records from [place]. Problems: Plan of Care: see other orders Subjective Pt seen on rounds during lunchtime. Per nursing, pt without orders pertaining to the wound on her face (S/p skin cancer treatment). No fevers reported. Objective Vital Signs Date Time Temp Pulse Resp B/P (MAP) Pulse Ox O2 Delivery O2 Flow Rate FiO2 05/02/17 16:07 97.4 79 24 115/50 (71) 96 05/01/17 23:40 Room Air Intake and Output 05/03/17 07:00 Intake Total 680 ml Balance 680 ml Intake Oral 680 ml Skin: No breakdown (Left face/eye area w/ bloody hemostatic wound, no drainage , no surrounding cellulitis. ) Review of Relevant I have reviewed the following items lynda (where applicable) has been applied. Labs Laboratory Tests Test 05/01/17 19:12 05/01/17 19:30 05/02/17 02:00 White Blood Count 6.7 x10^3/uL (4.0-11.0) Red Blood Count 3.64 x10^6/uL (3.50-5.40) Hemoglobin 11.4 g/dL (12.0-15.5) Hematocrit 34.0 % (36.0-47.0) Mean Corpuscular Volume 93 fL (79-100) Mean Corpuscular Hemoglobin 31 pg (25-35) Mean Corpuscular Hemoglobin Concent 34 g/dL (31-37) Red Cell Distribution Width 14.9 % (11.5-14.5) Platelet Count 203 x10^3/uL (140-400) Neutrophils (%) (Auto) 67 % (31-73) Lymphocytes (%) (Auto) 24 % (24-48) Monocytes (%) (Auto) 8 % (0-9) Eosinophils (%) (Auto) 1 % (0-3) Basophils (%) (Auto) 0 % (0-3) Neutrophils # (Auto) 4.5 x10^3uL (1.8-7.7) Lymphocytes # (Auto) 1.6 x10^3/uL (1.0-4.8) Monocytes # (Auto) 0.5 x10^3/uL (0.0-1.1) Eosinophils # (Auto) 0.1 x10^3/uL (0.0-0.7) Basophils # (Auto) 0.0 x10^3/uL (0.0-0.2) Erythrocyte Sedimentation Rate 6 (0-25) Prothrombin Time 11.5 SEC (9.4-11.4) Prothromb Time International Ratio 1.1 (0.9-1.1) Activated Partial Thromboplast Time < 21 SEC (23-33) D-Dimer (Holli) 1.72 mg/L (0.00-0.50) Sodium Level 143 mmol/L (136-145) Potassium Level 4.4 mmol/L (3.5-5.1) Chloride Level 105 mmol/L (98-107) Carbon Dioxide Level 28 mmol/L (21-32) Anion Gap 10 (6-14) Blood Urea Nitrogen 29 mg/dL (7-20) Creatinine 1.3 mg/dL (0.6-1.0) Estimated GFR (Cockcroft-Gault) 38.8 BUN/Creatinine Ratio 22 (6-20) Glucose Level 87 mg/dL (70-99) Calcium Level 8.9 mg/dL (8.5-10.1) Magnesium Level 2.2 mg/dL (1.8-2.4) Total Bilirubin 0.5 mg/dL (0.2-1.0) Direct Bilirubin 0.2 mg/dL (0.0-0.2) Aspartate Amino Transf (AST/SGOT) 27 U/L (15-37) Alanine Aminotransferase (ALT/SGPT) 26 U/L (14-59) Alkaline Phosphatase 103 U/L (46-116) Creatine Kinase 97 U/L (26-192) Creatine Kinase MB (Mass) 1.2 ng/mL (0.0-3.6) Creatine Kinase MB Relative Index 1.2 % (0-4) Troponin I Quantitative < 0.017 ng/mL (0-0.055) [id number]-Type Natriuretic Peptide 532 pg/mL (0-449) Total Protein 7.1 g/dL (6.4-8.2) Albumin 3.8 g/dL (3.4-5.0) Albumin/Globulin Ratio 1.2 (1.0-1.7) Lipase 179 U/L (73-393) Thyroid Stimulating Hormone (TSH) 1.848 uIU/mL (0.358-3.740) Rapid Plasma Reagin Non reactive (Non Reactive) Urine Collection Type U cath Urine Color Yellow Urine Clarity Hazy Urine pH 8.5 Urine Specific [place] 1.015 Urine Protein 30 mg/dl (NEG-TRACE) Urine Glucose (UA) Neg mg/dL (NEG) Urine Ketones (Stick) 15 mg/dL (NEG) Urine Blood Neg (NEG) Urine Nitrite Neg (NEG) Urine Bilirubin Neg (NEG) Urine Urobilinogen Dipstick 4 mg/dL (0.2 mg/dL) Urine Leukocyte Esterase Trace (NEG) Urine RBC 1-2 /HPF (0-2) Urine WBC 11-20 /HPF (0-4) Urine Squamous Epithelial Cells None /LPF Urine Transitional Epithelial Cells Few /LPF Urine Bacteria 0 /HPF (0-FEW) Urine Hyaline Casts Mod /HPF Urine Mucus Mod /LPF Urine Opiates Screen Neg (NEG) Urine Methadone Screen Neg (NEG) Urine Barbiturates Neg (NEG) Urine Phencyclidine Screen Neg (NEG) Urine Amphetamine/Methamphetamine Neg (NEG) Urine Benzodiazepines Screen Pos (NEG) Urine Cocaine Screen Neg (NEG) Urine Cannabinoids Screen Neg (NEG) Urine Ethyl Alcohol Neg (NEG) Lactic Acid Level 0.8 mmol/L (0.4-2.0) Influenza Type A (Rapid) Negative (NEGATIVE) Influenza Type B (Rapid) Negative (NEGATIVE) Microbiology 05/01/17 Urine Culture - Preliminary, Resulted 05/01/17 Urine Culture Result 1 (AMANDA) - Preliminary, Resulted Medications Current Medications Diphtheria/ Tetanus/Acell Pertussis (Boostrix) 0.5 ml ONCE ONCE VAX IM Last administered on 05/01/17at 22:36; Start 05/01/17 at 19:15; Stop 05/01/17 at 19:16 ; Status DC Lorazepam (Ativan) 2 mg 1X ONCE IM Last administered on 05/01/17at 19:45; Start 05/01/17 at 19:45; Stop 05/01/17 at 19:46; Status DC Diphenhydramine HCl (Benadryl) 50 mg 1X ONCE IM Last administered on at 19:45; Start 05/01/17 at 19:45; Stop 05/01/17 at 19:46; Status DC Diphenhydramine HCl (Benadryl) 50 mg STK-MED ONCE .ROUTE ; Start 05/01/17 at 19: 36; Stop 05/01/17 at 19:37; Status DC Lorazepam (Ativan) 1 mg STK-MED ONCE .ROUTE ; Start 05/01/17 at 19:38; Stop at 19:39; Status DC Midazolam HCl (Versed) 2 mg 1X ONCE IV ; Start 05/01/17 at 20:30; Stop at 20:31; Status DC Midazolam HCl (Versed) 5 mg STK-MED ONCE .ROUTE ; Start 05/01/17 at 20:25; Stop 05/01/17 at 20:26; Status DC Midazolam HCl (Versed) 5 mg 1X ONCE NS Last administered on 05/01/17at 20:40; Start 05/01/17 at 21:00; Stop 05/01/17 at 21:01; Status DC Ceftriaxone Sodium (Rocephin Im) 1 gm 1X ONCE IM Last administered on at 22:36; Start 05/01/17 at 21:15; Stop 05/01/17 at 21:16; Status DC Enoxaparin Sodium (Lovenox 60mg Syringe) 50 mg 1X ONCE SQ ; Start 05/01/17 at 21:45; Stop 05/01/17 at 21:45; Status DC Enoxaparin Sodium (Lovenox) 55 mg BID SQ ; Start 05/02/17 at 09:00; Stop at 09:00; Status DC Enoxaparin Sodium (Lovenox 60mg Syringe) 55 mg 1X ONCE SQ Last administered on 05/01/17at 22:35; Start 05/01/17 at 21:45; Stop 05/01/17 at 21:46; Status DC Iohexol (Omnipaque 300 Mg/ml) 75 ml 1X ONCE IV Last administered on 05/01/17at 22:11; Start 05/01/17 at 22:00; Stop 05/01/17 at 22:01; Status DC Midazolam HCl (Versed) 5 mg 1X ONCE IV ; Start 05/01/17 at 22:15; Stop at 22:18; Status DC Midazolam HCl (Versed) 1 mg 1X ONCE IV Last administered on 05/01/17 22:30; Start 05/01/17 at 23:00; Stop 05/01/17 at 23:02; Status DC Cephalexin HCl (Keflex) 500 mg TID PO Last administered on 05/03/17 13:42; Start 05/02/17 at 09:00 Alprazolam (Xanax) 0.25 mg QID PO Last administered on 05/02/17 17:32; Start 05/02/17 at 09:00; Stop 05/02/17 at 19:27; Status DC Divalproex Sodium (Depakote Sprinkles) 125 mg BID92 PO Last administered on 13:42; Start 05/02/17 at 09:00 Divalproex Sodium (Depakote Sprinkles) 500 mg QHS PO Last administered on at 20:03; Start 05/02/17 at 21:00 Lorazepam (Ativan) 0.5 mg PRN Q4HRS PRN PO ANXIETY / AGITATION Last administered on 05/03/17 11:53; Start 05/02/17 at 01:00 Lorazepam (Ativan Intensol) 0.5 mg PRN Q4HRS PRN PO ANXIETY / AGITATION; Start 05/02/17 at 01:00 Olanzapine (ZyPREXA ZYDIS) 5 mg QHS PO Last administered on 05/02/17 20:02; Start 05/02/17 at 21:00 Sertraline HCl (Zoloft) 100 mg DAILY PO Last administered on 05/03/17 07:50; Start 05/02/17 at 09:00 Levofloxacin (Levaquin) 500 mg DAILY06 PO Last administered on 05/02/17 08:53 ; Start 05/02/17 at 07:30; Stop 05/02/17 at 10:36; Status DC Lactobacillus Rhamnosus (Culturelle) 1 cap BID PO Last administered on 07:50; Start 05/02/17 at 09:00 Levofloxacin (Levaquin) 250 mg DAILY06 PO Last administered on 05/03/17at 07:50 ; Start 05/03/17 at 06:00 Alprazolam (Xanax) 0.25 mg TID PO Last administered on 05/03/17at 13:43; Start 05/02/17 at 21:00; Stop 05/06/17 at 20:59 Alprazolam (Xanax) 0.25 mg BID PO ; Start 05/06/17 at 21:00; Stop 05/10/17 at 08: 59 Alprazolam (Xanax) 0.25 mg DAILY PO ; Start 05/10/17 at 09:00; Stop 05/14/17 at 08 :59 Mirtazapine (Remeron) 7.5 mg QHS PO Last administered on 05/02/17at 19:59; Start 05/02/17 at 21:00 Acetaminophen (Tylenol) 650 mg PRN Q6HRS PRN PO PAIN; Start 05/02/17 at 19:30 Aspirin (Children'S Aspirin) 81 mg DAILY PO Last administered on 05/03/17at 08: 01; Start 05/03/17 at 09:00 Cyanocobalamin (Vitamin B-12) 250 mcg DAILY PO Last administered on 05/03/17at 07:59; Start 05/03/17 at 09:00 Al Hydroxide/Mg Hydroxide (Mylanta Plus Xs) 15 ml PRN AFTMEALHC PRN PO DYSPEPSIA; Start 05/02/17 at 19:30 Multi-Ingredient Ointment (Analgesic [place]) 1 beck PRN QID PRN TP MUSCLE PAIN; Start 05/02/17 at 19:30 Phenytoin Sodium (Dilantin) 100 mg BID PO Last administered on 05/03/17at 07:51 ; Start 05/02/17 at 21:00 Senna/Docusate Sodium (Senna Plus) 1 tab BID PO Last administered on 05/03/17at 07:50; Start 05/02/17 at 21:00 Magnesium Hydroxide (Milk Of Magnesia) 2,400 mg PRN QHS PRN PO CONSTIPATION; Start 05/02/17 at 19:45 Potassium Chloride (Klor-Con) 20 meq DAILYWBKFT PO Last administered on at 07:59; Start 05/03/17 at 08:00 Active Scripts Active Reported Klor-Con (Potassium Chloride) 20 Meq Packet 20 Meq PO DAILY Xanax (Alprazolam) 0.25 Mg Tablet 0.25 Mg PO QID Zoloft (Sertraline Hcl) 100 Mg Tablet 100 Mg PO DAILY Lorazepam Intensol (Lorazepam) 2 Mg/1 Ml Oral.conc 0.5 Mg PO PRN Q4HRS PRN Senna S Tablet (Sennosides/Docusate Sodium) 1 Each Tablet 1 Tab PO BID Depakote Sprinkle (Divalproex Sodium) 125 Mg Cap.sprink 500 Mg PO QHS Depakote Sprinkle (Divalproex Sodium) 125 Mg Cap.sprink 125 Mg PO BID92 Tylenol (Acetaminophen) 325 Mg Tablet 650 Mg PO PRN Q6HRS PRN Olanzapine Odt (Olanzapine) 5 Mg Tab.rapdis 5 Mg PO QHS Analgesic [place] (Methyl Salicylate/Menthol) 28 Gm Oint...g. 1 Beck TP PRN QID PRN Maalox Maximum Strength Susp (Mag Hydrox/Al Hydrox/Simeth) 355 Ml Oral.susp 15 Ml PO PRN AFTMEALHC PRN Milk Of Magnesia (Magnesium Hydroxide) 2,400 Mg/10 Ml Oral.susp 2,400 Mg PO PRN QHS PRN Vitamin B-12 (Cyanocobalamin (Vitamin B-12)) 1,000 Mcg Tablet 250 Mcg PO DAILY Lorazepam 0.5 Mg Tablet 0.5 Mg PO PRN Q4HRS PRN Dilantin (Phenytoin Sodium Extended) 100 Mg Capsule 100 Mg PO BID Aspirin 81 Mg Tab.chew 81 Mg PO DAILY Vitals/I & O Vital Sign - Last 24 Hours 05/02/17 16:07 Temp 97.4 Pulse 79 Resp 24 B/P (MAP) 115/50 (71) Pulse Ox 96 Intake and Output 05/02/17 05/02/17 05/03/17 15:00 23:00 07:00 Intake Total 300 ml 260 ml 120 ml Balance 300 ml 260 ml 120 ml JACBO COKER MD May 03, 2017 15:10
[2017-05-03 16:13] VITALS: BP 130/95
[2017-05-03] MEDS: NEOMY/BACITR/POLYMYXIN OINT PACKET. TP SCH (20:27)
[2017-05-03] MEDS: MIRTAZAPINE 15 MG TABLET PO SCH (20:29)
--- NOTE | 2017-05-03 22:03 | PDOC ---
Exam Note: Dane Note: Please also refer to the separate dictated note~for this date of service dictated separately.~Patient seen individually. Discussed the patient with Nursing staff reviewed the chart.~Reviewed interim history and current functioning. Reviewed vital signs,~Labs/ Radiology~and current medications noted below. Continue current treatment with the changes noted in the dictated addendum note Assessment: Vital Signs: Vital Signs Date Time Temp Pulse Resp B/P (MAP) Pulse Ox O2 Delivery O2 Flow Rate FiO2 05/03/17 16:13 97.8 56 16 130/95 (107) 98 05/01/17 23:40 Room Air I&O Intake and Output 05/03/17 07:00 Intake Total 680 ml Balance 680 ml Intake Oral 680 ml Current Medications: Meds: Current Medications Diphtheria/ Tetanus/Acell Pertussis (Boostrix) 0.5 ml ONCE ONCE VAX IM Last administered on 05/01/17at 22:36; Start 05/01/17 at 19:15; Stop 05/01/17 at 19:16 ; Status DC Lorazepam (Ativan) 2 mg 1X ONCE IM Last administered on 05/01/17at 19:45; Start 05/01/17 at 19:45; Stop 05/01/17 at 19:46; Status DC Diphenhydramine HCl (Benadryl) 50 mg 1X ONCE IM Last administered on at 19:45; Start 05/01/17 at 19:45; Stop 05/01/17 at 19:46; Status DC Diphenhydramine HCl (Benadryl) 50 mg STK-MED ONCE .ROUTE ; Start 05/01/17 at 19: 36; Stop 05/01/17 at 19:37; Status DC Lorazepam (Ativan) 1 mg STK-MED ONCE .ROUTE ; Start 05/01/17 at 19:38; Stop at 19:39; Status DC Midazolam HCl (Versed) 2 mg 1X ONCE IV ; Start 05/01/17 at 20:30; Stop at 20:31; Status DC Midazolam HCl (Versed) 5 mg STK-MED ONCE .ROUTE ; Start 05/01/17 at 20:25; Stop 05/01/17 at 20:26; Status DC Midazolam HCl (Versed) 5 mg 1X ONCE NS Last administered on 05/01/17at 20:40; Start 05/01/17 at 21:00; Stop 05/01/17 at 21:01; Status DC Ceftriaxone Sodium (Rocephin Im) 1 gm 1X ONCE IM Last administered on at 22:36; Start 05/01/17 at 21:15; Stop 05/01/17 at 21:16; Status DC Enoxaparin Sodium (Lovenox 60mg Syringe) 50 mg 1X ONCE SQ ; Start 05/01/17 at 21:45; Stop 05/01/17 at 21:45; Status DC Enoxaparin Sodium (Lovenox) 55 mg BID SQ ; Start 05/02/17 at 09:00; Stop at 09:00; Status DC Enoxaparin Sodium (Lovenox 60mg Syringe) 55 mg 1X ONCE SQ Last administered on 05/01/17at 22:35; Start 05/01/17 at 21:45; Stop 05/01/17 at 21:46; Status DC Iohexol (Omnipaque 300 Mg/ml) 75 ml 1X ONCE IV Last administered on 05/01/17at 22:11; Start 05/01/17 at 22:00; Stop 05/01/17 at 22:01; Status DC Midazolam HCl (Versed) 5 mg 1X ONCE IV ; Start 05/01/17 at 22:15; Stop at 22:18; Status DC Midazolam HCl (Versed) 1 mg 1X ONCE IV Last administered on 05/01/17at 22:30; Start 05/01/17 at 23:00; Stop 05/01/17 at 23:02; Status DC Cephalexin HCl (Keflex) 500 mg TID PO Last administered on 05/03/17at 20:27; Start 05/02/17 at 09:00 Alprazolam (Xanax) 0.25 mg QID PO Last administered on 05/02/17at 17:32; Start 05/02/17 at 09:00; Stop 05/02/17 at 19:27; Status DC Divalproex Sodium (Depakote Sprinkles) 125 mg BID92 PO Last administered on at 13:42; Start 05/02/17 at 09:00 Divalproex Sodium (Depakote Sprinkles) 500 mg QHS PO Last administered on 20:26; Start 05/02/17 at 21:00 Lorazepam (Ativan) 0.5 mg PRN Q4HRS PRN PO ANXIETY / AGITATION Last administered on 05/03/17 11:53; Start 05/02/17 at 01:00 Lorazepam (Ativan Intensol) 0.5 mg PRN Q4HRS PRN PO ANXIETY / AGITATION; Start 05/02/17 at 01:00 Olanzapine (ZyPREXA ZYDIS) 5 mg QHS PO Last administered on 05/03/17 20:26; Start 05/02/17 at 21:00 Sertraline HCl (Zoloft) 100 mg DAILY PO Last administered on 05/03/17 07:50; Start 05/02/17 at 09:00 Levofloxacin (Levaquin) 500 mg DAILY06 PO Last administered on 05/02/17 08:53 ; Start 05/02/17 at 07:30; Stop 05/02/17 at 10:36; Status DC Lactobacillus Rhamnosus (Culturelle) 1 cap BID PO Last administered on 20:26; Start 05/02/17 at 09:00 Levofloxacin (Levaquin) 250 mg DAILY06 PO Last administered on 05/03/17 07:50 ; Start 05/03/17 at 06:00 Alprazolam (Xanax) 0.25 mg TID PO Last administered on 05/03/17 20:27; Start 05/02/17 at 21:00; Stop 05/06/17 at 20:59 Alprazolam (Xanax) 0.25 mg BID PO ; Start 05/06/17 at 21:00; Stop 05/10/17 at 08: 59 Alprazolam (Xanax) 0.25 mg DAILY PO ; Start 05/10/17 at 09:00; Stop 05/14/17 at 08 :59 Mirtazapine (Remeron) 7.5 mg QHS PO Last administered on 05/02/17 19:59; Start 05/02/17 at 21:00; Stop 05/03/17 at 19:31; Status DC Acetaminophen (Tylenol) 650 mg PRN Q6HRS PRN PO PAIN; Start 05/02/17 at 19:30 Aspirin (Children'S Aspirin) 81 mg DAILY PO Last administered on 05/03/17at 08: 01; Start 05/03/17 at 09:00 Cyanocobalamin (Vitamin B-12) 250 mcg DAILY PO Last administered on 05/03/17at 07:59; Start 05/03/17 at 09:00 Al Hydroxide/Mg Hydroxide (Mylanta Plus Xs) 15 ml PRN AFTMEALHC PRN PO DYSPEPSIA; Start 05/02/17 at 19:30 Multi-Ingredient Ointment (Analgesic [place]) 1 beck PRN QID PRN TP MUSCLE PAIN; Start 05/02/17 at 19:30 Phenytoin Sodium (Dilantin) 100 mg BID PO Last administered on 05/03/17at 20:26 ; Start 05/02/17 at 21:00 Senna/Docusate Sodium (Senna Plus) 1 tab BID PO Last administered on 05/03/17 20:26; Start 05/02/17 at 21:00 Magnesium Hydroxide (Milk Of Magnesia) 2,400 mg PRN QHS PRN PO CONSTIPATION; Start 05/02/17 at 19:45 Potassium Chloride (Klor-Con) 20 meq DAILYWBKFT PO Last administered on at 07:59; Start 05/03/17 at 08:00 Neomycin/ Polymyxin/ Bacitracin (Triple Antibiotic Ointment) 1 pkt BID TP Last administered on 05/03/17at 20:27; Start 05/03/17 at 21:00; Stop 05/08/17 at 20:59 Mirtazapine (Remeron) 15 mg QHS PO Last administered on 05/03/17at 20:29; Start 05/03/17 at 21:00 Trazodone HCl (Desyrel) 50 mg PRN QHS PRN PO SLEEP; Start 05/03/17 at 19:30 Active Scripts Active Reported Klor-Con (Potassium Chloride) 20 Meq Packet 20 Meq PO DAILY Xanax (Alprazolam) 0.25 Mg Tablet 0.25 Mg PO QID Zoloft (Sertraline Hcl) 100 Mg Tablet 100 Mg PO DAILY Lorazepam Intensol (Lorazepam) 2 Mg/1 Ml Oral.conc 0.5 Mg PO PRN Q4HRS PRN Senna S Tablet (Sennosides/Docusate Sodium) 1 Each Tablet 1 Tab PO BID Depakote Sprinkle (Divalproex Sodium) 125 Mg Cap.sprink 500 Mg PO QHS Depakote Sprinkle (Divalproex Sodium) 125 Mg Cap.sprink 125 Mg PO BID92 Tylenol (Acetaminophen) 325 Mg Tablet 650 Mg PO PRN Q6HRS PRN Olanzapine Odt (Olanzapine) 5 Mg Tab.rapdis 5 Mg PO QHS Analgesic [place] (Methyl Salicylate/Menthol) 28 Gm Oint...g. 1 Beck TP PRN QID PRN Maalox Maximum Strength Susp (Mag Hydrox/Al Hydrox/Simeth) 355 Ml Oral.susp 15 Ml PO PRN AFTMEALHC PRN Milk Of Magnesia (Magnesium Hydroxide) 2,400 Mg/10 Ml Oral.susp 2,400 Mg PO PRN QHS PRN Vitamin B-12 (Cyanocobalamin (Vitamin B-12)) 1,000 Mcg Tablet 250 Mcg PO DAILY Lorazepam 0.5 Mg Tablet 0.5 Mg PO PRN Q4HRS PRN Dilantin (Phenytoin Sodium Extended) 100 Mg Capsule 100 Mg PO BID Aspirin 81 Mg Tab.chew 81 Mg PO DAILY I have reviewed the current psychotropics carefully including drug interactions. Risk benefit ratio favors no change other than as noted in my dictated progress note. Diagnosis: Problems: (1) Dementia with behavioral disturbance (2) Anxiety disorder (3) Dementia in Alzheimer's disease with delusions (4) Dementia in Alzheimer's disease with depression (5) Dementia, vascular, with delusions (6) Dementia, vascular, with depression (7) Impulse control disorder NAKIA KO MD May 03, 2017 22:03
--- NOTE | 2017-05-04 07:12 | HP ---
ADMIT DATE: 05/02/2017 This is a late entry for 05/02/2017 and covers elements not covered in my initial note of 05/02/2017. SUMMARY OF PROGRESS: I met with the patient evening of 05/02/2017 for this evaluation. I had previously discussed with nursing staff on several occasions to gather background historical information from Dr. Yandy Camacho, her outpatient psychiatrist from [facility] in [place] and Dr. Aguilar, her primary care physician, resulting in this referral back consequent to her worsening dementia, delusions, aggression after she was banging on doors, windows, increasingly anxious, refusing medications, refusing cares, pulling on the other residents. The medications were being refused even though there were being hidden in food. She had failed outpatient psychiatric interventions resulting in this referral back to us. CHIEF COMPLAINT: "No." The patient is quite confused, unable to respond directly when I questioned her on circumstances prompting admission. HISTORY OF PRESENT ILLNESS: The patient has a history of dementia, Alzheimer's vascular type. She has been here with us in the past on more than one occasion, stabilized and most recently residing at [facility], followed up at outpatient's Psychiatry with Dr. Camacho, primary care physician, Dr. Aguilar. In the recent past, she has had increasing agitation, sleep and appetite changes, worsening psychotic symptoms, worsening mood swings and disruptive behavior as noted above. No clear history of suicidal or homicidal ideation. PAST PSYCHIATRIC HISTORY: As above. CODE STATUS: DNR. MEDICAL HISTORY: History of hypertension, seizure disorder. She does have a UTI. Diet: Regular, ambulates ad chon. CURRENT PSYCHOTROPICS: Xanax 0.25 mg 4 times a day, Depakote 125 mg twice a day, 500 mg at bedtime, Zoloft 100 mg a day, Zyprexa 5 mg at bedtime. Valproic acid level is 29. MENTAL STATUS EXAM: The patient was seen individually evening of 05/02/2017. She is oriented to herself, has been quite agitated on one-on-one status. Insight, judgment, recent and remote memory, attention, concentration, fund of knowledge poor, consistent with her diagnosis. The patient is not very verbal. Assets: Stable living at the alf, supportive family. WEAKNESS: The patient has delusions, agitation, aggression. IMPRESSION: Major neurocognitive disorder, Alzheimer, vascular with depression, delusion, behavioral disturbance; anxiety disorder, unspecified; impulse control disorder, unspecified; urinary tract infection. Rest diagnoses as above. PLAN: Admit to geropsychiatry unit at [facility]. I will see the patient daily individually from a psychiatric standpoint, medical followup per Dr. Narayanan/Dr Oneil. The patient slept just 3-1/2 hours previous evening. We will start Remeron 7.5 mg p.o. at bedtime and attempt to taper the Xanax from 0.25 mg 4 times a day to 0.25 mg 3 times a day for 3 days, then b.i.d. for 3 days, then once a day for 3 days and stop. Continue rest of the psychotropics. May need to increase Depakote as a mood stabilizer, but given her unsteady gait, I would like to wait for this. MAN Leandro KO MD DR: LUCRECIA/luz JOB#: [id number] / [id number]
[2017-05-04] MEDS: LACTOBACILLUS RHAMNOSUS GG 1 CAPSULE. PO SCH ×2 (07:17→19:48)
[2017-05-04] MEDS: ASPIRIN 81 MG TAB.CHEW PO SCH (07:18)
[2017-05-04] MEDS: PHENYTOIN SODIUM EXTENDED 100 MG CAPSULE PO SCH ×2 (07:18→19:49)
[2017-05-04] MEDS: DIVALPROEX 125 MG CAP.SPRINK PO SCH ×3 (07:18→19:49)
[2017-05-04] MEDS: POTASSIUM CHLORIDE 20 MEQ TABLET.ER. PO SCH (07:18)
[2017-05-04] MEDS: SERTRALINE 100 MG TABLET. PO SCH (07:18)
[2017-05-04] MEDS: SENNOSIDES/DOCUSATE 8.6/50MG TABLET. PO SCH ×2 (07:18→19:49)
[2017-05-04] MEDS: CYANOCOBALAMIN (VITAMIN B-12) 250 MCG TABLET PO SCH (07:18)
[2017-05-04] MEDS: levoFLOXacin 250 MG TABLET PO SCH (07:18)
[2017-05-04] MEDS: ALPRAZolam 0.25 MG TABLET PO SCH ×3 (07:18→19:49)
[2017-05-04] MEDS: NEOMY/BACITR/POLYMYXIN OINT PACKET. TP SCH ×2 (07:20→19:50)
--- NOTE | 2017-05-04 08:47 | PN ---
DATE: 05/03/2017 This late entry 05/03/2017 copies elements not covered in my initial note 05/03/2017. Met with the patient in the evening of 05/03/2017. The patient remains on one-on-one status, there is a fall risk, requiring one-on-one for now. She slept just 2-1/4 hours previous evening despite the Remeron 7.5 mg p.o. at bedtime. She has been anxious, received p.r.n. Xanax 11:50 a.m., climbed on the couch, was banging on the windows, unmanageable, labile, disruptive, confused. REVIEW OF SYSTEMS: There is no CV, , pulmonary, eye, ENT system symptoms on review. Reliability poor. MENTAL STATUS EXAM: Oriented to herself. Insight, judgment, recent and remote memory, attention, concentration, fund of knowledge poor, consistent with her diagnosis mentioned in my initial note. IMPRESSION: Major neurocognitive disorder, Alzheimer, vascular with depression, delusion, behavioral disturbance. PLAN: Continue psychotropics mentioned in my initial note. Start trazodone 50 mg at bedtime p.r.n., may repeat x 1 for insomnia, increase Remeron from 7.5 mg at bedtime to 50 mg at bedtime. Consider increasing Depakote once gait is more steady. MAN Leandro KO MD DR: LUCRECIA/luz JOB#: [id number] / [id number]
[2017-05-04 16:32] VITALS: BP 144/81
--- NOTE | 2017-05-04 19:40 | PDOC ---
Exam Note: Dane Note: Please also refer to the separate dictated note~for this date of service dictated separately.~Patient seen individually. Discussed the patient with Nursing staff reviewed the chart.~Reviewed interim history and current functioning. Reviewed vital signs,~Labs/ Radiology~and current medications noted below. Continue current treatment with the changes noted in the dictated addendum note Assessment: Vital Signs: Vital Signs Date Time Temp Pulse Resp B/P (MAP) Pulse Ox O2 Delivery O2 Flow Rate FiO2 05/04/17 16:32 98.7 103 26 144/81 (102) 96 05/01/17 23:40 Room Air I&O Intake and Output 05/04/17 07:00 Intake Total 840 ml Balance 840 ml Intake Oral 840 ml # Voids 1 # Bowel Movements 1 Current Medications: Meds: Current Medications Diphtheria/ Tetanus/Acell Pertussis (Boostrix) 0.5 ml ONCE ONCE VAX IM Last administered on 05/01/17at 22:36; Start 05/01/17 at 19:15; Stop 05/01/17 at 19:16 ; Status DC Lorazepam (Ativan) 2 mg 1X ONCE IM Last administered on 05/01/17at 19:45; Start 05/01/17 at 19:45; Stop 05/01/17 at 19:46; Status DC Diphenhydramine HCl (Benadryl) 50 mg 1X ONCE IM Last administered on at 19:45; Start 05/01/17 at 19:45; Stop 05/01/17 at 19:46; Status DC Diphenhydramine HCl (Benadryl) 50 mg STK-MED ONCE .ROUTE ; Start 05/01/17 at 19: 36; Stop 05/01/17 at 19:37; Status DC Lorazepam (Ativan) 1 mg STK-MED ONCE .ROUTE ; Start 05/01/17 at 19:38; Stop at 19:39; Status DC Midazolam HCl (Versed) 2 mg 1X ONCE IV ; Start 05/01/17 at 20:30; Stop at 20:31; Status DC Midazolam HCl (Versed) 5 mg STK-MED ONCE .ROUTE ; Start 05/01/17 at 20:25; Stop 05/01/17 at 20:26; Status DC Midazolam HCl (Versed) 5 mg 1X ONCE NS Last administered on 05/01/17at 20:40; Start 05/01/17 at 21:00; Stop 05/01/17 at 21:01; Status DC Ceftriaxone Sodium (Rocephin Im) 1 gm 1X ONCE IM Last administered on at 22:36; Start 05/01/17 at 21:15; Stop 05/01/17 at 21:16; Status DC Enoxaparin Sodium (Lovenox 60mg Syringe) 50 mg 1X ONCE SQ ; Start 05/01/17 at 21:45; Stop 05/01/17 at 21:45; Status DC Enoxaparin Sodium (Lovenox) 55 mg BID SQ ; Start 05/02/17 at 09:00; Stop at 09:00; Status DC Enoxaparin Sodium (Lovenox 60mg Syringe) 55 mg 1X ONCE SQ Last administered on 05/01/17at 22:35; Start 05/01/17 at 21:45; Stop 05/01/17 at 21:46; Status DC Iohexol (Omnipaque 300 Mg/ml) 75 ml 1X ONCE IV Last administered on 05/01/17at 22:11; Start 05/01/17 at 22:00; Stop 05/01/17 at 22:01; Status DC Midazolam HCl (Versed) 5 mg 1X ONCE IV ; Start 05/01/17 at 22:15; Stop at 22:18; Status DC Midazolam HCl (Versed) 1 mg 1X ONCE IV Last administered on 05/01/17at 22:30; Start 05/01/17 at 23:00; Stop 05/01/17 at 23:02; Status DC Cephalexin HCl (Keflex) 500 mg TID PO Last administered on 05/03/17at 20:27; Start 05/02/17 at 09:00; Stop 05/03/17 at 22:41; Status DC Alprazolam (Xanax) 0.25 mg QID PO Last administered on 05/02/17at 17:32; Start 05/02/17 at 09:00; Stop 05/02/17 at 19:27; Status DC Divalproex Sodium (Depakote Sprinkles) 125 mg BID92 PO Last administered on at 12:43; Start 05/02/17 at 09:00 Divalproex Sodium (Depakote Sprinkles) 500 mg QHS PO Last administered on 20:26; Start 05/02/17 at 21:00 Lorazepam (Ativan) 0.5 mg PRN Q4HRS PRN PO ANXIETY / AGITATION Last administered on 05/03/17 11:53; Start 05/02/17 at 01:00 Lorazepam (Ativan Intensol) 0.5 mg PRN Q4HRS PRN PO ANXIETY / AGITATION; Start 05/02/17 at 01:00 Olanzapine (ZyPREXA ZYDIS) 5 mg QHS PO Last administered on 05/03/17 20:26; Start 05/02/17 at 21:00 Sertraline HCl (Zoloft) 100 mg DAILY PO Last administered on 05/04/17 07:18; Start 05/02/17 at 09:00 Levofloxacin (Levaquin) 500 mg DAILY06 PO Last administered on 05/02/17 08:53 ; Start 05/02/17 at 07:30; Stop 05/02/17 at 10:36; Status DC Lactobacillus Rhamnosus (Culturelle) 1 cap BID PO Last administered on 07:17; Start 05/02/17 at 09:00 Levofloxacin (Levaquin) 250 mg DAILY06 PO Last administered on 05/04/17 07:18 ; Start 05/03/17 at 06:00 Alprazolam (Xanax) 0.25 mg TID PO Last administered on 05/04/17 12:43; Start 05/02/17 at 21:00; Stop 05/06/17 at 20:59 Alprazolam (Xanax) 0.25 mg BID PO ; Start 05/06/17 at 21:00; Stop 05/10/17 at 08: 59 Alprazolam (Xanax) 0.25 mg DAILY PO ; Start 05/10/17 at 09:00; Stop 05/14/17 at 08 :59 Mirtazapine (Remeron) 7.5 mg QHS PO Last administered on 05/02/17 19:59; Start 05/02/17 at 21:00; Stop 05/03/17 at 19:31; Status DC Acetaminophen (Tylenol) 650 mg PRN Q6HRS PRN PO PAIN; Start 05/02/17 at 19:30 Aspirin (Children'S Aspirin) 81 mg DAILY PO Last administered on 05/04/17at 07: 18; Start 05/03/17 at 09:00 Cyanocobalamin (Vitamin B-12) 250 mcg DAILY PO Last administered on 05/04/17at 07:18; Start 05/03/17 at 09:00 Al Hydroxide/Mg Hydroxide (Mylanta Plus Xs) 15 ml PRN AFTMEALHC PRN PO DYSPEPSIA; Start 05/02/17 at 19:30 Multi-Ingredient Ointment (Analgesic [place]) 1 beck PRN QID PRN TP MUSCLE PAIN; Start 05/02/17 at 19:30 Phenytoin Sodium (Dilantin) 100 mg BID PO Last administered on 05/04/17at 07:18 ; Start 05/02/17 at 21:00 Senna/Docusate Sodium (Senna Plus) 1 tab BID PO Last administered on 05/04/17at 07:18; Start 05/02/17 at 21:00 Magnesium Hydroxide (Milk Of Magnesia) 2,400 mg PRN QHS PRN PO CONSTIPATION; Start 05/02/17 at 19:45 Potassium Chloride (Klor-Con) 20 meq DAILYWBKFT PO Last administered on at 07:18; Start 05/03/17 at 08:00 Neomycin/ Polymyxin/ Bacitracin (Triple Antibiotic Ointment) 1 pkt BID TP Last administered on 05/04/17at 07:20; Start 05/03/17 at 21:00; Stop 05/08/17 at 20:59 Mirtazapine (Remeron) 15 mg QHS PO Last administered on 05/03/17at 20:29; Start 05/03/17 at 21:00 Trazodone HCl (Desyrel) 50 mg PRN QHS PRN PO SLEEP; Start 05/03/17 at 19:30 Active Scripts Active Reported Klor-Con (Potassium Chloride) 20 Meq Packet 20 Meq PO DAILY Xanax (Alprazolam) 0.25 Mg Tablet 0.25 Mg PO QID Zoloft (Sertraline Hcl) 100 Mg Tablet 100 Mg PO DAILY Lorazepam Intensol (Lorazepam) 2 Mg/1 Ml Oral.conc 0.5 Mg PO PRN Q4HRS PRN Senna S Tablet (Sennosides/Docusate Sodium) 1 Each Tablet 1 Tab PO BID Depakote Sprinkle (Divalproex Sodium) 125 Mg Cap.sprink 500 Mg PO QHS Depakote Sprinkle (Divalproex Sodium) 125 Mg Cap.sprink 125 Mg PO BID92 Tylenol (Acetaminophen) 325 Mg Tablet 650 Mg PO PRN Q6HRS PRN Olanzapine Odt (Olanzapine) 5 Mg Tab.rapdis 5 Mg PO QHS Analgesic [place] (Methyl Salicylate/Menthol) 28 Gm Oint...g. 1 Beck TP PRN QID PRN Maalox Maximum Strength Susp (Mag Hydrox/Al Hydrox/Simeth) 355 Ml Oral.susp 15 Ml PO PRN AFTMEALHC PRN Milk Of Magnesia (Magnesium Hydroxide) 2,400 Mg/10 Ml Oral.susp 2,400 Mg PO PRN QHS PRN Vitamin B-12 (Cyanocobalamin (Vitamin B-12)) 1,000 Mcg Tablet 250 Mcg PO DAILY Lorazepam 0.5 Mg Tablet 0.5 Mg PO PRN Q4HRS PRN Dilantin (Phenytoin Sodium Extended) 100 Mg Capsule 100 Mg PO BID Aspirin 81 Mg Tab.chew 81 Mg PO DAILY I have reviewed the current psychotropics carefully including drug interactions. Risk benefit ratio favors no change other than as noted in my dictated progress note. Diagnosis: Problems: (1) Dementia with behavioral disturbance (2) Anxiety disorder (3) Dementia in Alzheimer's disease with delusions (4) Dementia in Alzheimer's disease with depression (5) Dementia, vascular, with delusions (6) Dementia, vascular, with depression (7) Impulse control disorder NAKIA KO MD May 04, 2017 19:40
[2017-05-04] MEDS: MIRTAZAPINE 15 MG TABLET PO SCH (19:49)
[2017-05-05] MEDS: levoFLOXacin 250 MG TABLET PO SCH (06:08)
[2017-05-05 06:58] VITALS: BP 106/49
[2017-05-05] MEDS: SERTRALINE 100 MG TABLET. PO SCH (08:01)
[2017-05-05] MEDS: ASPIRIN 81 MG TAB.CHEW PO SCH (08:01)
[2017-05-05] MEDS: PHENYTOIN SODIUM EXTENDED 100 MG CAPSULE PO SCH ×2 (08:01→19:32)
[2017-05-05] MEDS: CYANOCOBALAMIN (VITAMIN B-12) 250 MCG TABLET PO SCH (08:01)
[2017-05-05] MEDS: SENNOSIDES/DOCUSATE 8.6/50MG TABLET. PO SCH ×2 (08:01→19:32)
[2017-05-05] MEDS: LACTOBACILLUS RHAMNOSUS GG 1 CAPSULE. PO SCH ×2 (08:02→19:32)
[2017-05-05] MEDS: POTASSIUM CHLORIDE 20 MEQ TABLET.ER. PO SCH (08:02)
[2017-05-05] MEDS: ALPRAZolam 0.25 MG TABLET PO SCH ×3 (08:02→19:35)
[2017-05-05] MEDS: DIVALPROEX 125 MG CAP.SPRINK PO SCH ×3 (08:02→19:32)
[2017-05-05] MEDS: NEOMY/BACITR/POLYMYXIN OINT PACKET. TP SCH ×2 (08:03→19:35)
[2017-05-05] MEDS: LORazepam 0.5 MG TABLET PO PRN (08:16)
[2017-05-05] MEDS ORDERED: ALPRAZolam 0.25 MG TABLET PO ONE (10:00)
[2017-05-05 15:52] VITALS: BP 113/71
--- NOTE | 2017-05-05 19:00 | PDOC ---
Exam Note: Dane Note: Please also refer to the separate dictated note~for this date of service dictated separately.~Patient seen individually. Discussed the patient with Nursing staff reviewed the chart.~Reviewed interim history and current functioning. Reviewed vital signs,~Labs/ Radiology~and current medications noted below. Continue current treatment with the changes noted in the dictated addendum note Assessment: Vital Signs: Vital Signs Date Time Temp Pulse Resp B/P (MAP) Pulse Ox O2 Delivery O2 Flow Rate FiO2 05/05/17 15:52 98.9 80 18 113/71 (85) 97 05/01/17 23:40 Room Air I&O Intake and Output 05/05/17 07:00 Intake Total 700 ml Balance 700 ml Intake Oral 700 ml # Voids 1 # Bowel Movements 2 Current Medications: Meds: Current Medications Diphtheria/ Tetanus/Acell Pertussis (Boostrix) 0.5 ml ONCE ONCE VAX IM Last administered on 05/01/17at 22:36; Start 05/01/17 at 19:15; Stop 05/01/17 at 19:16 ; Status DC Lorazepam (Ativan) 2 mg 1X ONCE IM Last administered on 05/01/17at 19:45; Start 05/01/17 at 19:45; Stop 05/01/17 at 19:46; Status DC Diphenhydramine HCl (Benadryl) 50 mg 1X ONCE IM Last administered on at 19:45; Start 05/01/17 at 19:45; Stop 05/01/17 at 19:46; Status DC Diphenhydramine HCl (Benadryl) 50 mg STK-MED ONCE .ROUTE ; Start 05/01/17 at 19: 36; Stop 05/01/17 at 19:37; Status DC Lorazepam (Ativan) 1 mg STK-MED ONCE .ROUTE ; Start 05/01/17 at 19:38; Stop at 19:39; Status DC Midazolam HCl (Versed) 2 mg 1X ONCE IV ; Start 05/01/17 at 20:30; Stop at 20:31; Status DC Midazolam HCl (Versed) 5 mg STK-MED ONCE .ROUTE ; Start 05/01/17 at 20:25; Stop 05/01/17 at 20:26; Status DC Midazolam HCl (Versed) 5 mg 1X ONCE NS Last administered on 05/01/17at 20:40; Start 05/01/17 at 21:00; Stop 05/01/17 at 21:01; Status DC Ceftriaxone Sodium (Rocephin Im) 1 gm 1X ONCE IM Last administered on at 22:36; Start 05/01/17 at 21:15; Stop 05/01/17 at 21:16; Status DC Enoxaparin Sodium (Lovenox 60mg Syringe) 50 mg 1X ONCE SQ ; Start 05/01/17 at 21:45; Stop 05/01/17 at 21:45; Status DC Enoxaparin Sodium (Lovenox) 55 mg BID SQ ; Start 05/02/17 at 09:00; Stop at 09:00; Status DC Enoxaparin Sodium (Lovenox 60mg Syringe) 55 mg 1X ONCE SQ Last administered on 05/01/17at 22:35; Start 05/01/17 at 21:45; Stop 05/01/17 at 21:46; Status DC Iohexol (Omnipaque 300 Mg/ml) 75 ml 1X ONCE IV Last administered on 05/01/17at 22:11; Start 05/01/17 at 22:00; Stop 05/01/17 at 22:01; Status DC Midazolam HCl (Versed) 5 mg 1X ONCE IV ; Start 05/01/17 at 22:15; Stop at 22:18; Status DC Midazolam HCl (Versed) 1 mg 1X ONCE IV Last administered on 05/01/17at 22:30; Start 05/01/17 at 23:00; Stop 05/01/17 at 23:02; Status DC Cephalexin HCl (Keflex) 500 mg TID PO Last administered on 05/03/17at 20:27; Start 05/02/17 at 09:00; Stop 05/03/17 at 22:41; Status DC Alprazolam (Xanax) 0.25 mg QID PO Last administered on 05/02/17at 17:32; Start 05/02/17 at 09:00; Stop 05/02/17 at 19:27; Status DC Divalproex Sodium (Depakote Sprinkles) 125 mg BID92 PO Last administered on at 13:49; Start 05/02/17 at 09:00 Divalproex Sodium (Depakote Sprinkles) 500 mg QHS PO Last administered on at 19:49; Start 05/02/17 at 21:00 Lorazepam (Ativan) 0.5 mg PRN Q4HRS PRN PO ANXIETY / AGITATION Last administered on 05/05/17at 08:16; Start 05/02/17 at 01:00 Lorazepam (Ativan Intensol) 0.5 mg PRN Q4HRS PRN PO ANXIETY / AGITATION; Start 05/02/17 at 01:00 Olanzapine (ZyPREXA ZYDIS) 5 mg QHS PO Last administered on 05/04/17 19:49; Start 05/02/17 at 21:00 Sertraline HCl (Zoloft) 100 mg DAILY PO Last administered on 05/05/17at 08:01; Start 05/02/17 at 09:00 Levofloxacin (Levaquin) 500 mg DAILY06 PO Last administered on 05/02/17at 08:53 ; Start 05/02/17 at 07:30; Stop 05/02/17 at 10:36; Status DC Lactobacillus Rhamnosus (Culturelle) 1 cap BID PO Last administered on at 08:02; Start 05/02/17 at 09:00 Levofloxacin (Levaquin) 250 mg DAILY06 PO Last administered on 05/05/17at 06:08 ; Start 05/03/17 at 06:00 Alprazolam (Xanax) 0.25 mg TID PO Last administered on 05/05/17at 13:49; Start 05/02/17 at 21:00; Stop 05/06/17 at 20:59 Alprazolam (Xanax) 0.25 mg BID PO ; Start 05/06/17 at 21:00; Stop 05/10/17 at 08: 59 Alprazolam (Xanax) 0.25 mg DAILY PO ; Start 05/10/17 at 09:00; Stop 05/14/17 at 08 :59 Mirtazapine (Remeron) 7.5 mg QHS PO Last administered on 05/02/17at 19:59; Start 05/02/17 at 21:00; Stop 05/03/17 at 19:31; Status DC Acetaminophen (Tylenol) 650 mg PRN Q6HRS PRN PO PAIN; Start 05/02/17 at 19:30 Aspirin (Children'S Aspirin) 81 mg DAILY PO Last administered on 05/05/17at 08: 01; Start 05/03/17 at 09:00 Cyanocobalamin (Vitamin B-12) 250 mcg DAILY PO Last administered on 05/05/17at 08:01; Start 05/03/17 at 09:00 Al Hydroxide/Mg Hydroxide (Mylanta Plus Xs) 15 ml PRN AFTMEALHC PRN PO DYSPEPSIA; Start 05/02/17 at 19:30 Multi-Ingredient Ointment (Analgesic [place]) 1 beck PRN QID PRN TP MUSCLE PAIN; Start 05/02/17 at 19:30 Phenytoin Sodium (Dilantin) 100 mg BID PO Last administered on 05/05/17at 08:01 ; Start 05/02/17 at 21:00 Senna/Docusate Sodium (Senna Plus) 1 tab BID PO Last administered on 05/05/17at 08:01; Start 05/02/17 at 21:00 Magnesium Hydroxide (Milk Of Magnesia) 2,400 mg PRN QHS PRN PO CONSTIPATION; Start 05/02/17 at 19:45 Potassium Chloride (Klor-Con) 20 meq DAILYWBKFT PO Last administered on at 08:02; Start 05/03/17 at 08:00 Neomycin/ Polymyxin/ Bacitracin (Triple Antibiotic Ointment) 1 pkt BID TP Last administered on 05/05/17at 08:03; Start 05/03/17 at 21:00; Stop 05/08/17 at 20:59 Mirtazapine (Remeron) 15 mg QHS PO Last administered on 05/04/17at 19:49; Start 05/03/17 at 21:00 Trazodone HCl (Desyrel) 50 mg PRN QHS PRN PO SLEEP; Start 05/03/17 at 19:30 Alprazolam (Xanax) 0.25 mg 1X ONCE PO Last administered on 05/05/17at 09:36; Start 05/05/17 at 10:00; Stop 05/05/17 at 10:01; Status DC Active Scripts Active Reported Klor-Con (Potassium Chloride) 20 Meq Packet 20 Meq PO DAILY Xanax (Alprazolam) 0.25 Mg Tablet 0.25 Mg PO QID Zoloft (Sertraline Hcl) 100 Mg Tablet 100 Mg PO DAILY Lorazepam Intensol (Lorazepam) 2 Mg/1 Ml Oral.conc 0.5 Mg PO PRN Q4HRS PRN Senna S Tablet (Sennosides/Docusate Sodium) 1 Each Tablet 1 Tab PO BID Depakote Sprinkle (Divalproex Sodium) 125 Mg Cap.sprink 500 Mg PO QHS Depakote Sprinkle (Divalproex Sodium) 125 Mg Cap.sprink 125 Mg PO BID92 Tylenol (Acetaminophen) 325 Mg Tablet 650 Mg PO PRN Q6HRS PRN Olanzapine Odt (Olanzapine) 5 Mg Tab.rapdis 5 Mg PO QHS Analgesic [place] (Methyl Salicylate/Menthol) 28 Gm Oint...g. 1 Beck TP PRN QID PRN Maalox Maximum Strength Susp (Mag Hydrox/Al Hydrox/Simeth) 355 Ml Oral.susp 15 Ml PO PRN AFTMEALHC PRN Milk Of Magnesia (Magnesium Hydroxide) 2,400 Mg/10 Ml Oral.susp 2,400 Mg PO PRN QHS PRN Vitamin B-12 (Cyanocobalamin (Vitamin B-12)) 1,000 Mcg Tablet 250 Mcg PO DAILY Lorazepam 0.5 Mg Tablet 0.5 Mg PO PRN Q4HRS PRN Dilantin (Phenytoin Sodium Extended) 100 Mg Capsule 100 Mg PO BID Aspirin 81 Mg Tab.chew 81 Mg PO DAILY I have reviewed the current psychotropics carefully including drug interactions. Risk benefit ratio favors no change other than as noted in my dictated progress note. Diagnosis: Problems: (1) Dementia with behavioral disturbance (2) Anxiety disorder (3) Dementia in Alzheimer's disease with delusions (4) Dementia in Alzheimer's disease with depression (5) Dementia, vascular, with delusions (6) Dementia, vascular, with depression (7) Impulse control disorder NAKIA KO MD May 05, 2017 19:00
[2017-05-05] MEDS: MIRTAZAPINE 15 MG TABLET PO SCH (19:32)
[2017-05-05] MEDS: traZODone 50 MG TABLET. PO PRN (19:35)
[2017-05-06 06:40] VITALS: BP 117/65
[2017-05-06] MEDS: POTASSIUM CHLORIDE 20 MEQ TABLET.ER. PO SCH (07:45)
[2017-05-06] MEDS: busPIRone 5 MG TABLET. PO SCH ×3 (07:45→16:43)
[2017-05-06] MEDS: SENNOSIDES/DOCUSATE 8.6/50MG TABLET. PO SCH ×2 (07:45→19:40)
[2017-05-06] MEDS: levoFLOXacin 250 MG TABLET PO SCH (07:45)
[2017-05-06] MEDS: ASPIRIN 81 MG TAB.CHEW PO SCH (07:45)
[2017-05-06] MEDS: SERTRALINE 100 MG TABLET. PO SCH (07:46)
[2017-05-06] MEDS: DIVALPROEX 125 MG CAP.SPRINK PO SCH ×3 (07:46→19:41)
[2017-05-06] MEDS: PHENYTOIN SODIUM EXTENDED 100 MG CAPSULE PO SCH ×2 (07:46→19:40)
[2017-05-06] MEDS: CYANOCOBALAMIN (VITAMIN B-12) 250 MCG TABLET PO SCH (07:47)
[2017-05-06] MEDS: LACTOBACILLUS RHAMNOSUS GG 1 CAPSULE. PO SCH ×2 (07:47→19:40)
[2017-05-06] MEDS: NEOMY/BACITR/POLYMYXIN OINT PACKET. TP SCH ×2 (07:48→21:00)
[2017-05-06] MEDS: ALPRAZolam 0.25 MG TABLET PO SCH ×3 (07:48→19:45)
[2017-05-06 08:08] LABS: BASO % 1 % (0-3); EOS # 0.3 x10^3/uL (0.0-0.7); EOS % 7 % (0-3); HEMATOCRIT 36.6 % (36.0-47.0); HEMOGLOBIN 12.3 g/dL (12.0-15.5); LYMPH # 1.7 x10^3/uL (1.0-4.8); LYMPH % 38 % (24-48); MEAN CORPUSCULAR HEMOGLOBIN 32 pg (25-35); MEAN CORPUSCULAR HGB CONC 34 g/dL (31-37); MEAN CORPUSCULAR VOLUME 94 fL (79-100); MONO # 0.3 x10^3/uL (0.0-1.1); MONO % 7 % (0-9); NEUT % 47 % (31-73); PLATELET COUNT 214 x10^3/uL (140-400); RED BLOOD COUNT 3.91 x10^6/uL (3.50-5.40); RED CELL DISTRIBUTION WIDTH 14.8 % (11.5-14.5); WHITE BLOOD COUNT 4.4 x10^3/uL (4.0-11.0)
[2017-05-06 08:25] LABS: ALBUMIN 3.4 g/dL (3.4-5.0); CALCIUM 8.9 mg/dL (8.5-10.1); CREATININE 1.1 mg/dL (0.6-1.0); GFR 47.1; POTASSIUM 3.7 mmol/L (3.5-5.1); TOTAL BILIRUBIN 0.5 mg/dL (0.2-1.0); TOTAL PROTEIN 6.8 g/dL (6.4-8.2)
--- NOTE | 2017-05-06 11:14 | PN ---
DATE: 05/04/2017 PSYCHIATRIC PROGRESS NOTE This is a late entry 05/04/2017, covers elements not covered in my initial note 05/04/2017. SUBJECTIVE: I met with the patient the evening of 05/04/2017. The patient has been pacing, remains on one-on-one status as a fall risk, was agitated, intermittently received Xanax and was calmer, was gesturing at staff, threatening. REVIEW OF SYSTEMS: No CV, , pulmonary, eye, ENT system symptoms on review. Reliability poor. MENTAL STATUS EXAM: Oriented to herself. Insight, judgment, recent and remote memory, attention, concentration, fund of knowledge poor, consistent with her diagnoses mentioned in my initial note. IMPRESSION: Major neurocognitive disorder, Alzheimer, vascular with depression, delusion, behavioral disturbance. Rest unchanged. PLAN: Taper the Xanax. Maintain Remeron, Zyprexa, Depakote is being adjusted. Remeron was increased. Trazodone added for insomnia. Adjust further as clinically indicated. Valproic acid level at last check was 29, will be repeated and adjusted thereafter. MAN Leandro KO MD DR: [email or web address] JOB#: [id number] / [id number]
[2017-05-06] MEDS: LORazepam INTENSOL 2 MG/ML BOTTLE PO PRN (12:20)
[2017-05-06 16:40] VITALS: BP 123/63
[2017-05-06] MEDS: MIRTAZAPINE 15 MG TABLET PO SCH (19:40)
--- NOTE | 2017-05-06 19:52 | PDOC ---
Exam Note: Dane Note: Please also refer to the separate dictated note~for this date of service dictated separately.~Patient seen individually. Discussed the patient with Nursing staff reviewed the chart.~Reviewed interim history and current functioning. Reviewed vital signs,~Labs/ Radiology~and current medications noted below. Continue current treatment with the changes noted in the dictated addendum note Assessment: Vital Signs: Vital Signs Date Time Temp Pulse Resp B/P (MAP) Pulse Ox O2 Delivery O2 Flow Rate FiO2 05/06/17 16:40 97.6 80 16 123/63 (83) 96 05/01/17 23:40 Room Air I&O Intake and Output 05/06/17 07:00 Intake Total 468 ml Balance 468 ml Intake Oral 468 ml # Voids 2 Labs: Laboratory Tests Test 05/06/17 07:39 White Blood Count 4.4 x10^3/uL (4.0-11.0) Red Blood Count 3.91 x10^6/uL (3.50-5.40) Hemoglobin 12.3 g/dL (12.0-15.5) Hematocrit 36.6 % (36.0-47.0) Mean Corpuscular Volume 94 fL (79-100) Mean Corpuscular Hemoglobin 32 pg (25-35) Mean Corpuscular Hemoglobin Concent 34 g/dL (31-37) Red Cell Distribution Width 14.8 % (11.5-14.5) H Platelet Count 214 x10^3/uL (140-400) Neutrophils (%) (Auto) 47 % (31-73) Lymphocytes (%) (Auto) 38 % (24-48) Monocytes (%) (Auto) 7 % (0-9) Eosinophils (%) (Auto) 7 % (0-3) H Basophils (%) (Auto) 1 % (0-3) Neutrophils # (Auto) 2.0 x10^3uL (1.8-7.7) Lymphocytes # (Auto) 1.7 x10^3/uL (1.0-4.8) Monocytes # (Auto) 0.3 x10^3/uL (0.0-1.1) Eosinophils # (Auto) 0.3 x10^3/uL (0.0-0.7) Basophils # (Auto) 0.0 x10^3/uL (0.0-0.2) Sodium Level 140 mmol/L (136-145) Potassium Level 3.7 mmol/L (3.5-5.1) Chloride Level 107 mmol/L (98-107) Carbon Dioxide Level 24 mmol/L (21-32) Anion Gap 9 (6-14) Blood Urea Nitrogen 26 mg/dL (7-20) H Creatinine 1.1 mg/dL (0.6-1.0) H Estimated GFR (Cockcroft-Gault) 47.1 BUN/Creatinine Ratio 24 (6-20) H Glucose Level 126 mg/dL (70-99) H Calcium Level 8.9 mg/dL (8.5-10.1) Total Bilirubin 0.5 mg/dL (0.2-1.0) Aspartate Amino Transferase (AST) 30 U/L (15-37) Alanine Aminotransferase (ALT) 32 U/L (14-59) Alkaline Phosphatase 105 U/L (46-116) Total Protein 6.8 g/dL (6.4-8.2) Albumin 3.4 g/dL (3.4-5.0) Albumin/Globulin Ratio 1.0 (1.0-1.7) Current Medications: Meds: Current Medications Diphtheria/ Tetanus/Acell Pertussis (Boostrix) 0.5 ml ONCE ONCE VAX IM Last administered on 05/01/17at 22:36; Start 05/01/17 at 19:15; Stop 05/01/17 at 19:16 ; Status DC Lorazepam (Ativan) 2 mg 1X ONCE IM Last administered on 05/01/17at 19:45; Start 05/01/17 at 19:45; Stop 05/01/17 at 19:46; Status DC Diphenhydramine HCl (Benadryl) 50 mg 1X ONCE IM Last administered on at 19:45; Start 05/01/17 at 19:45; Stop 05/01/17 at 19:46; Status DC Diphenhydramine HCl (Benadryl) 50 mg STK-MED ONCE .ROUTE ; Start 05/01/17 at 19: 36; Stop 05/01/17 at 19:37; Status DC Lorazepam (Ativan) 1 mg STK-MED ONCE .ROUTE ; Start 05/01/17 at 19:38; Stop at 19:39; Status DC Midazolam HCl (Versed) 2 mg 1X ONCE IV ; Start 05/01/17 at 20:30; Stop at 20:31; Status DC Midazolam HCl (Versed) 5 mg STK-MED ONCE .ROUTE ; Start 05/01/17 at 20:25; Stop 05/01/17 at 20:26; Status DC Midazolam HCl (Versed) 5 mg 1X ONCE NS Last administered on 05/01/17at 20:40; Start 05/01/17 at 21:00; Stop 05/01/17 at 21:01; Status DC Ceftriaxone Sodium (Rocephin Im) 1 gm 1X ONCE IM Last administered on at 22:36; Start 05/01/17 at 21:15; Stop 05/01/17 at 21:16; Status DC Enoxaparin Sodium (Lovenox 60mg Syringe) 50 mg 1X ONCE SQ ; Start 05/01/17 at 21:45; Stop 05/01/17 at 21:45; Status DC Enoxaparin Sodium (Lovenox) 55 mg BID SQ ; Start 05/02/17 at 09:00; Stop at 09:00; Status DC Enoxaparin Sodium (Lovenox 60mg Syringe) 55 mg 1X ONCE SQ Last administered on 05/01/17at 22:35; Start 05/01/17 at 21:45; Stop 05/01/17 at 21:46; Status DC Iohexol (Omnipaque 300 Mg/ml) 75 ml 1X ONCE IV Last administered on 05/01/17at 22:11; Start 05/01/17 at 22:00; Stop 05/01/17 at 22:01; Status DC Midazolam HCl (Versed) 5 mg 1X ONCE IV ; Start 05/01/17 at 22:15; Stop at 22:18; Status DC Midazolam HCl (Versed) 1 mg 1X ONCE IV Last administered on 05/01/17at 22:30; Start 05/01/17 at 23:00; Stop 05/01/17 at 23:02; Status DC Cephalexin HCl (Keflex) 500 mg TID PO Last administered on 05/03/17at 20:27; Start 05/02/17 at 09:00; Stop 05/03/17 at 22:41; Status DC Alprazolam (Xanax) 0.25 mg QID PO Last administered on 05/02/17 17:32; Start 05/02/17 at 09:00; Stop 05/02/17 at 19:27; Status DC Divalproex Sodium (Depakote Sprinkles) 125 mg BID92 PO Last administered on at 14:25; Start 05/02/17 at 09:00 Divalproex Sodium (Depakote Sprinkles) 500 mg QHS PO Last administered on at 19:32; Start 05/02/17 at 21:00 Lorazepam (Ativan) 0.5 mg PRN Q4HRS PRN PO ANXIETY / AGITATION Last administered on 05/05/17 08:16; Start 05/02/17 at 01:00 Lorazepam (Ativan Intensol) 0.5 mg PRN Q4HRS PRN PO ANXIETY / AGITATION Last administered on 05/06/17at 12:20; Start 05/02/17 at 01:00 Olanzapine (ZyPREXA ZYDIS) 5 mg QHS PO Last administered on 05/05/17 19:35; Start 05/02/17 at 21:00 Sertraline HCl (Zoloft) 100 mg DAILY PO Last administered on 05/06/17at 07:46; Start 05/02/17 at 09:00 Levofloxacin (Levaquin) 500 mg DAILY06 PO Last administered on 05/02/17at 08:53 ; Start 05/02/17 at 07:30; Stop 05/02/17 at 10:36; Status DC Lactobacillus Rhamnosus (Culturelle) 1 cap BID PO Last administered on at 07:47; Start 05/02/17 at 09:00 Levofloxacin (Levaquin) 250 mg DAILY06 PO Last administered on 05/06/17at 07:45 ; Start 05/03/17 at 06:00; Stop 05/06/17 at 18:15; Status DC Alprazolam (Xanax) 0.25 mg TID PO Last administered on 05/06/17at 14:25; Start 05/02/17 at 21:00; Stop 05/06/17 at 20:59 Alprazolam (Xanax) 0.25 mg BID PO ; Start 05/06/17 at 21:00; Stop 05/10/17 at 08: 59 Alprazolam (Xanax) 0.25 mg DAILY PO ; Start 05/10/17 at 09:00; Stop 05/14/17 at 08 :59 Mirtazapine (Remeron) 7.5 mg QHS PO Last administered on 05/02/17at 19:59; Start 05/02/17 at 21:00; Stop 05/03/17 at 19:31; Status DC Acetaminophen (Tylenol) 650 mg PRN Q6HRS PRN PO PAIN; Start 05/02/17 at 19:30 Aspirin (Children'S Aspirin) 81 mg DAILY PO Last administered on 05/06/17at 07: 45; Start 05/03/17 at 09:00 Cyanocobalamin (Vitamin B-12) 250 mcg DAILY PO Last administered on 05/06/17at 07:47; Start 05/03/17 at 09:00 Al Hydroxide/Mg Hydroxide (Mylanta Plus Xs) 15 ml PRN AFTMEALHC PRN PO DYSPEPSIA; Start 05/02/17 at 19:30 Multi-Ingredient Ointment (Analgesic [place]) 1 beck PRN QID PRN TP MUSCLE PAIN; Start 05/02/17 at 19:30 Phenytoin Sodium (Dilantin) 100 mg BID PO Last administered on 05/06/17at 07:46 ; Start 05/02/17 at 21:00 Senna/Docusate Sodium (Senna Plus) 1 tab BID PO Last administered on 05/06/17at 07:45; Start 05/02/17 at 21:00 Magnesium Hydroxide (Milk Of Magnesia) 2,400 mg PRN QHS PRN PO CONSTIPATION; Start 05/02/17 at 19:45 Potassium Chloride (Klor-Con) 20 meq DAILYWBKFT PO Last administered on at 07:45; Start 05/03/17 at 08:00 Neomycin/ Polymyxin/ Bacitracin (Triple Antibiotic Ointment) 1 pkt BID TP Last administered on 05/06/17at 07:48; Start 05/03/17 at 21:00; Stop 05/08/17 at 20:59 Mirtazapine (Remeron) 15 mg QHS PO Last administered on 05/05/17at 19:32; Start 05/03/17 at 21:00 Trazodone HCl (Desyrel) 50 mg PRN QHS PRN PO SLEEP Last administered on at 19:35; Start 05/03/17 at 19:30 Alprazolam (Xanax) 0.25 mg 1X ONCE PO Last administered on 05/05/17at 09:36; Start 05/05/17 at 10:00; Stop 05/05/17 at 10:01; Status DC Buspirone HCl (Buspar) 5 mg TID@0900,1300,1700 PO Last administered on at 16:43; Start 05/06/17 at 09:00; Stop 05/06/17 at 18:23; Status DC Buspirone HCl (Buspar) 5 mg BID@1300,1700 PO ; Start 05/07/17 at 13:00 Buspirone HCl (Buspar) 10 mg DAILY PO ; Start 05/07/17 at 09:00 Active Scripts Active Reported Klor-Con (Potassium Chloride) 20 Meq Packet 20 Meq PO DAILY Xanax (Alprazolam) 0.25 Mg Tablet 0.25 Mg PO QID Zoloft (Sertraline Hcl) 100 Mg Tablet 100 Mg PO DAILY Lorazepam Intensol (Lorazepam) 2 Mg/1 Ml Oral.conc 0.5 Mg PO PRN Q4HRS PRN Senna S Tablet (Sennosides/Docusate Sodium) 1 Each Tablet 1 Tab PO BID Depakote Sprinkle (Divalproex Sodium) 125 Mg Cap.sprink 500 Mg PO QHS Depakote Sprinkle (Divalproex Sodium) 125 Mg Cap.sprink 125 Mg PO BID92 Tylenol (Acetaminophen) 325 Mg Tablet 650 Mg PO PRN Q6HRS PRN Olanzapine Odt (Olanzapine) 5 Mg Tab.rapdis 5 Mg PO QHS Analgesic [place] (Methyl Salicylate/Menthol) 28 Gm Oint...g. 1 Beck TP PRN QID PRN Maalox Maximum Strength Susp (Mag Hydrox/Al Hydrox/Simeth) 355 Ml Oral.susp 15 Ml PO PRN AFTMEALHC PRN Milk Of Magnesia (Magnesium Hydroxide) 2,400 Mg/10 Ml Oral.susp 2,400 Mg PO PRN QHS PRN Vitamin B-12 (Cyanocobalamin (Vitamin B-12)) 1,000 Mcg Tablet 250 Mcg PO DAILY Lorazepam 0.5 Mg Tablet 0.5 Mg PO PRN Q4HRS PRN Dilantin (Phenytoin Sodium Extended) 100 Mg Capsule 100 Mg PO BID Aspirin 81 Mg Tab.chew 81 Mg PO DAILY I have reviewed the current psychotropics carefully including drug interactions. Risk benefit ratio favors no change other than as noted in my dictated progress note. Diagnosis: Problems: (1) Dementia with behavioral disturbance (2) Anxiety disorder (3) Dementia in Alzheimer's disease with delusions (4) Dementia in Alzheimer's disease with depression (5) Dementia, vascular, with delusions (6) Dementia, vascular, with depression (7) Impulse control disorder NAKIA KO MD May 06, 2017 19:51
[2017-05-07 06:13] VITALS: BP 149/69
[2017-05-07] MEDS: POTASSIUM CHLORIDE 20 MEQ TABLET.ER. PO SCH (08:14)
[2017-05-07] MEDS: LACTOBACILLUS RHAMNOSUS GG 1 CAPSULE. PO SCH ×2 (08:14→20:07)
[2017-05-07] MEDS: PHENYTOIN SODIUM EXTENDED 100 MG CAPSULE PO SCH ×2 (08:14→20:07)
[2017-05-07] MEDS: ASPIRIN 81 MG TAB.CHEW PO SCH (08:14)
[2017-05-07] MEDS: SENNOSIDES/DOCUSATE 8.6/50MG TABLET. PO SCH ×2 (08:14→20:08)
[2017-05-07] MEDS: CYANOCOBALAMIN (VITAMIN B-12) 250 MCG TABLET PO SCH (08:14)
[2017-05-07] MEDS: DIVALPROEX 125 MG CAP.SPRINK PO SCH ×3 (08:15→20:07)
[2017-05-07] MEDS: SERTRALINE 100 MG TABLET. PO SCH (08:15)
[2017-05-07] MEDS: ALPRAZolam 0.25 MG TABLET PO SCH ×2 (08:17→20:09)
[2017-05-07] MEDS: NEOMY/BACITR/POLYMYXIN OINT PACKET. TP SCH ×2 (08:17→20:08)
[2017-05-07] MEDS: busPIRone 10 MG TABLET. PO SCH (08:17)
[2017-05-07 08:31] LABS: VAL ACID 30 mcg/mL (50-100)
[2017-05-07] MEDS: LORazepam 0.5 MG TABLET PO PRN (12:17)
[2017-05-07] MEDS: busPIRone 5 MG TABLET. PO SCH ×2 (12:18→16:49)
[2017-05-07 15:56] VITALS: BP 122/63
--- NOTE | 2017-05-07 19:59 | PDOC ---
Exam Note: Dane Note: Please also refer to the separate dictated note~for this date of service dictated separately.~Patient seen individually. Discussed the patient with Nursing staff reviewed the chart.~Reviewed interim history and current functioning. Reviewed vital signs,~Labs/ Radiology~and current medications noted below. Continue current treatment with the changes noted in the dictated addendum note Assessment: Vital Signs: Vital Signs Date Time Temp Pulse Resp B/P (MAP) Pulse Ox O2 Delivery O2 Flow Rate FiO2 05/07/17 15:56 98.2 72 20 122/63 (82) 97 05/01/17 23:40 Room Air I&O Intake and Output 05/07/17 07:00 Intake Total 600 ml Balance 600 ml Intake Oral 600 ml # Voids 2 # Bowel Movements 1 Labs: Laboratory Tests Test 05/07/17 07:23 Valproic Acid Level 30 mcg/mL (50-100) L Valproic Acid Last Dose Date 05/06/2017 Valproic Acid Last Dose Time 2100 Current Medications: Meds: Current Medications Diphtheria/ Tetanus/Acell Pertussis (Boostrix) 0.5 ml ONCE ONCE VAX IM Last administered on 05/01/17at 22:36; Start 05/01/17 at 19:15; Stop 05/01/17 at 19:16 ; Status DC Lorazepam (Ativan) 2 mg 1X ONCE IM Last administered on 05/01/17at 19:45; Start 05/01/17 at 19:45; Stop 05/01/17 at 19:46; Status DC Diphenhydramine HCl (Benadryl) 50 mg 1X ONCE IM Last administered on at 19:45; Start 05/01/17 at 19:45; Stop 05/01/17 at 19:46; Status DC Diphenhydramine HCl (Benadryl) 50 mg STK-MED ONCE .ROUTE ; Start 05/01/17 at 19: 36; Stop 05/01/17 at 19:37; Status DC Lorazepam (Ativan) 1 mg STK-MED ONCE .ROUTE ; Start 05/01/17 at 19:38; Stop at 19:39; Status DC Midazolam HCl (Versed) 2 mg 1X ONCE IV ; Start 05/01/17 at 20:30; Stop at 20:31; Status DC Midazolam HCl (Versed) 5 mg STK-MED ONCE .ROUTE ; Start 05/01/17 at 20:25; Stop 05/01/17 at 20:26; Status DC Midazolam HCl (Versed) 5 mg 1X ONCE NS Last administered on 05/01/17at 20:40; Start 05/01/17 at 21:00; Stop 05/01/17 at 21:01; Status DC Ceftriaxone Sodium (Rocephin Im) 1 gm 1X ONCE IM Last administered on at 22:36; Start 05/01/17 at 21:15; Stop 05/01/17 at 21:16; Status DC Enoxaparin Sodium (Lovenox 60mg Syringe) 50 mg 1X ONCE SQ ; Start 05/01/17 at 21:45; Stop 05/01/17 at 21:45; Status DC Enoxaparin Sodium (Lovenox) 55 mg BID SQ ; Start 05/02/17 at 09:00; Stop at 09:00; Status DC Enoxaparin Sodium (Lovenox 60mg Syringe) 55 mg 1X ONCE SQ Last administered on 05/01/17at 22:35; Start 05/01/17 at 21:45; Stop 05/01/17 at 21:46; Status DC Iohexol (Omnipaque 300 Mg/ml) 75 ml 1X ONCE IV Last administered on 05/01/17at 22:11; Start 05/01/17 at 22:00; Stop 05/01/17 at 22:01; Status DC Midazolam HCl (Versed) 5 mg 1X ONCE IV ; Start 05/01/17 at 22:15; Stop at 22:18; Status DC Midazolam HCl (Versed) 1 mg 1X ONCE IV Last administered on 05/01/17at 22:30; Start 05/01/17 at 23:00; Stop 05/01/17 at 23:02; Status DC Cephalexin HCl (Keflex) 500 mg TID PO Last administered on 05/03/17at 20:27; Start 05/02/17 at 09:00; Stop 05/03/17 at 22:41; Status DC Alprazolam (Xanax) 0.25 mg QID PO Last administered on 05/02/17at 17:32; Start 05/02/17 at 09:00; Stop 05/02/17 at 19:27; Status DC Divalproex Sodium (Depakote Sprinkles) 125 mg BID92 PO Last administered on 12:17; Start 05/02/17 at 09:00 Divalproex Sodium (Depakote Sprinkles) 500 mg QHS PO Last administered on 19:41; Start 05/02/17 at 21:00; Stop 05/07/17 at 18:37; Status DC Lorazepam (Ativan) 0.5 mg PRN Q4HRS PRN PO ANXIETY / AGITATION Last administered on 05/07/17 12:17; Start 05/02/17 at 01:00 Lorazepam (Ativan Intensol) 0.5 mg PRN Q4HRS PRN PO ANXIETY / AGITATION Last administered on 05/06/17 12:20; Start 05/02/17 at 01:00 Olanzapine (ZyPREXA ZYDIS) 5 mg QHS PO Last administered on 05/06/17 19:40; Start 05/02/17 at 21:00 Sertraline HCl (Zoloft) 100 mg DAILY PO Last administered on 05/07/17 08:15; Start 05/02/17 at 09:00 Levofloxacin (Levaquin) 500 mg DAILY06 PO Last administered on 05/02/17 08:53 ; Start 05/02/17 at 07:30; Stop 05/02/17 at 10:36; Status DC Lactobacillus Rhamnosus (Culturelle) 1 cap BID PO Last administered on 08:14; Start 05/02/17 at 09:00 Levofloxacin (Levaquin) 250 mg DAILY06 PO Last administered on 05/06/17 07:45 ; Start 05/03/17 at 06:00; Stop 05/06/17 at 18:15; Status DC Alprazolam (Xanax) 0.25 mg TID PO Last administered on 05/06/17 14:25; Start 05/02/17 at 21:00; Stop 05/06/17 at 20:59; Status DC Alprazolam (Xanax) 0.25 mg BID PO Last administered on 05/07/17 08:17; Start 05/06/17 at 21:00; Stop 05/10/17 at 08:59 Alprazolam (Xanax) 0.25 mg DAILY PO ; Start 05/10/17 at 09:00; Stop 05/14/17 at 08 :59 Mirtazapine (Remeron) 7.5 mg QHS PO Last administered on 05/02/17at 19:59; Start 05/02/17 at 21:00; Stop 05/03/17 at 19:31; Status DC Acetaminophen (Tylenol) 650 mg PRN Q6HRS PRN PO PAIN; Start 05/02/17 at 19:30 Aspirin (Children'S Aspirin) 81 mg DAILY PO Last administered on 05/07/17 08: 14; Start 05/03/17 at 09:00 Cyanocobalamin (Vitamin B-12) 250 mcg DAILY PO Last administered on 05/07/17at 08:14; Start 05/03/17 at 09:00 Al Hydroxide/Mg Hydroxide (Mylanta Plus Xs) 15 ml PRN AFTMEALHC PRN PO DYSPEPSIA; Start 05/02/17 at 19:30 Multi-Ingredient Ointment (Analgesic [place]) 1 beck PRN QID PRN TP MUSCLE PAIN; Start 05/02/17 at 19:30 Phenytoin Sodium (Dilantin) 100 mg BID PO Last administered on 05/07/17at 08:14 ; Start 05/02/17 at 21:00 Senna/Docusate Sodium (Senna Plus) 1 tab BID PO Last administered on 05/07/17at 08:14; Start 05/02/17 at 21:00 Magnesium Hydroxide (Milk Of Magnesia) 2,400 mg PRN QHS PRN PO CONSTIPATION; Start 05/02/17 at 19:45 Potassium Chloride (Klor-Con) 20 meq DAILYWBKFT PO Last administered on at 08:14; Start 05/03/17 at 08:00 Neomycin/ Polymyxin/ Bacitracin (Triple Antibiotic Ointment) 1 pkt BID TP Last administered on 05/07/17at 08:17; Start 05/03/17 at 21:00; Stop 05/08/17 at 20:59 Mirtazapine (Remeron) 15 mg QHS PO Last administered on 05/06/17at 19:40; Start 05/03/17 at 21:00 Trazodone HCl (Desyrel) 50 mg PRN QHS PRN PO SLEEP Last administered on at 19:35; Start 05/03/17 at 19:30 Alprazolam (Xanax) 0.25 mg 1X ONCE PO Last administered on 05/05/17at 09:36; Start 05/05/17 at 10:00; Stop 05/05/17 at 10:01; Status DC Buspirone HCl (Buspar) 5 mg TID@0900,1300,1700 PO Last administered on at 16:43; Start 05/06/17 at 09:00; Stop 05/06/17 at 18:23; Status DC Buspirone HCl (Buspar) 5 mg BID@1300,1700 PO Last administered on 05/07/17at 16: 49; Start 05/07/17 at 13:00 Buspirone HCl (Buspar) 10 mg DAILY PO Last administered on 05/07/17at 08:17; Start 05/07/17 at 09:00 Divalproex Sodium (Depakote Sprinkles) 750 mg QHS PO ; Start 05/07/17 at 21:00 Active Scripts Active Reported Klor-Con (Potassium Chloride) 20 Meq Packet 20 Meq PO DAILY Xanax (Alprazolam) 0.25 Mg Tablet 0.25 Mg PO QID Zoloft (Sertraline Hcl) 100 Mg Tablet 100 Mg PO DAILY Lorazepam Intensol (Lorazepam) 2 Mg/1 Ml Oral.conc 0.5 Mg PO PRN Q4HRS PRN Senna S Tablet (Sennosides/Docusate Sodium) 1 Each Tablet 1 Tab PO BID Depakote Sprinkle (Divalproex Sodium) 125 Mg Cap.sprink 500 Mg PO QHS Depakote Sprinkle (Divalproex Sodium) 125 Mg Cap.sprink 125 Mg PO BID92 Tylenol (Acetaminophen) 325 Mg Tablet 650 Mg PO PRN Q6HRS PRN Olanzapine Odt (Olanzapine) 5 Mg Tab.rapdis 5 Mg PO QHS Analgesic [place] (Methyl Salicylate/Menthol) 28 Gm Oint...g. 1 Beck TP PRN QID PRN Maalox Maximum Strength Susp (Mag Hydrox/Al Hydrox/Simeth) 355 Ml Oral.susp 15 Ml PO PRN AFTMEALHC PRN Milk Of Magnesia (Magnesium Hydroxide) 2,400 Mg/10 Ml Oral.susp 2,400 Mg PO PRN QHS PRN Vitamin B-12 (Cyanocobalamin (Vitamin B-12)) 1,000 Mcg Tablet 250 Mcg PO DAILY Lorazepam 0.5 Mg Tablet 0.5 Mg PO PRN Q4HRS PRN Dilantin (Phenytoin Sodium Extended) 100 Mg Capsule 100 Mg PO BID Aspirin 81 Mg Tab.chew 81 Mg PO DAILY I have reviewed the current psychotropics carefully including drug interactions. Risk benefit ratio favors no change other than as noted in my dictated progress note. 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
[2017-05-07] MEDS: MIRTAZAPINE 15 MG TABLET PO SCH (20:07)
[2017-05-08] MEDS: traZODone 50 MG TABLET. PO PRN (01:56)
[2017-05-08 05:41] VITALS: BP 135/44
--- NOTE | 2017-05-08 07:01 | PN ---
DATE: 05/05/2017 This late entry 05/05/2017 covers elements not covered in my initial note 05/05/2017. Met with the patient evening of 05/05/2017. The patient slept 7-1/2 hours previous evening, was on one-on-one status till the afternoon, then crawling on the floor, all over the place pushing other patients, difficult to redirect, anxious, restless, confused. REVIEW OF SYSTEMS: No CV, , pulmonary, eye, ENT system symptoms on review. Reliability poor. MENTAL STATUS EXAM: Oriented to herself. Insight, judgment, recent and remote memory, attention, concentration, fund of knowledge poor, consistent with her diagnosis mentioned in my initial note. IMPRESSION: Major neurocognitive disorder, Alzheimer, vascular with depression, delusion, behavioral disturbance. Rest unchanged. PLAN: Start BuSpar 5 mg 3 times a day. Continue rest unchanged. Xanax is being tapered. MAN Leandro KO MD DR: LUCRECIA/luz JOB#: [id number] / [id number]
--- NOTE | 2017-05-08 07:55 | PN ---
DATE: 05/07/2017 PSYCHIATRIC PROGRESS NOTE This is a late entry of 05/06/2017 covers elements not covered in my initial note of 05/06/2017. HISTORY OF PRESENT ILLNESS: I met with the patient in the evening of 05/06/2017. The patient remains quite confused, exit seeking. Ativan p.r.n. seemed to help. Daughter wants a contact with Dr. Camacho and I have asked the nursing staff to inform Dr. Camacho to call me at anytime she is able to. REVIEW OF SYSTEMS: No CV, , pulmonary, eye, ENT system symptoms on review. Reliability poor. MENTAL STATUS EXAM: Oriented to herself. Insight, judgment, recent and remote memory, attention, concentration, fund of knowledge poor, consistent with her diagnosis mentioned in my initial note. IMPRESSION: Major neurocognitive disorder, Alzheimer, vascular with depression, delusion, behavioral disturbance. Rest unchanged. PLAN: Continue current psychotropics. Increase 9:00 a.m. BuSpar to 10 mg. Make further adjustments as clinically indicated. MAN Leandro KO MD DR: LUCRECIA/luz JOB#: [id number] / [id number]
[2017-05-08] MEDS: SERTRALINE 100 MG TABLET. PO SCH (08:49)
[2017-05-08] MEDS: SENNOSIDES/DOCUSATE 8.6/50MG TABLET. PO SCH ×2 (08:49→20:33)
[2017-05-08] MEDS: PHENYTOIN SODIUM EXTENDED 100 MG CAPSULE PO SCH ×2 (08:49→20:33)
[2017-05-08] MEDS: busPIRone 10 MG TABLET. PO SCH (08:49)
[2017-05-08] MEDS: DIVALPROEX 125 MG CAP.SPRINK PO SCH ×3 (08:49→20:33)
[2017-05-08] MEDS: LACTOBACILLUS RHAMNOSUS GG 1 CAPSULE. PO SCH ×2 (08:50→20:33)
[2017-05-08] MEDS: ASPIRIN 81 MG TAB.CHEW PO SCH (08:50)
[2017-05-08] MEDS: CYANOCOBALAMIN (VITAMIN B-12) 250 MCG TABLET PO SCH (08:50)
[2017-05-08] MEDS: POTASSIUM CHLORIDE 20 MEQ TABLET.ER. PO SCH (08:50)
[2017-05-08] MEDS: ALPRAZolam 0.25 MG TABLET PO SCH ×2 (08:50→20:34)
[2017-05-08] MEDS: NEOMY/BACITR/POLYMYXIN OINT PACKET. TP SCH (08:51)
[2017-05-08] MEDS: busPIRone 5 MG TABLET. PO SCH ×2 (13:19→16:14)
[2017-05-08] MEDS: LORazepam INTENSOL 2 MG/ML BOTTLE PO PRN (13:19)
[2017-05-08 15:46] VITALS: BP 147/64
--- NOTE | 2017-05-08 20:11 | PDOC ---
Exam Note: Dane Note: Please also refer to the separate dictated note~for this date of service dictated separately.~Patient seen individually. Discussed the patient with Nursing staff reviewed the chart.~Reviewed interim history and current functioning. Reviewed vital signs,~Labs/ Radiology~and current medications noted below. Continue current treatment with the changes noted in the dictated addendum note Assessment: Vital Signs: Vital Signs Date Time Temp Pulse Resp B/P (MAP) Pulse Ox O2 Delivery O2 Flow Rate FiO2 05/08/17 15:46 97.2 73 24 147/64 (91) 97 Room Air I&O Intake and Output 05/08/17 07:00 Intake Total 720 ml Balance 720 ml Intake Oral 720 ml # Bowel Movements 1 Current Medications: Meds: Current Medications Diphtheria/ Tetanus/Acell Pertussis (Boostrix) 0.5 ml ONCE ONCE VAX IM Last administered on 05/01/17at 22:36; Start 05/01/17 at 19:15; Stop 05/01/17 at 19:16 ; Status DC Lorazepam (Ativan) 2 mg 1X ONCE IM Last administered on 05/01/17at 19:45; Start 05/01/17 at 19:45; Stop 05/01/17 at 19:46; Status DC Diphenhydramine HCl (Benadryl) 50 mg 1X ONCE IM Last administered on at 19:45; Start 05/01/17 at 19:45; Stop 05/01/17 at 19:46; Status DC Diphenhydramine HCl (Benadryl) 50 mg STK-MED ONCE .ROUTE ; Start 05/01/17 at 19: 36; Stop 05/01/17 at 19:37; Status DC Lorazepam (Ativan) 1 mg STK-MED ONCE .ROUTE ; Start 05/01/17 at 19:38; Stop at 19:39; Status DC Midazolam HCl (Versed) 2 mg 1X ONCE IV ; Start 05/01/17 at 20:30; Stop at 20:31; Status DC Midazolam HCl (Versed) 5 mg STK-MED ONCE .ROUTE ; Start 05/01/17 at 20:25; Stop 05/01/17 at 20:26; Status DC Midazolam HCl (Versed) 5 mg 1X ONCE NS Last administered on 05/01/17at 20:40; Start 05/01/17 at 21:00; Stop 05/01/17 at 21:01; Status DC Ceftriaxone Sodium (Rocephin Im) 1 gm 1X ONCE IM Last administered on at 22:36; Start 05/01/17 at 21:15; Stop 05/01/17 at 21:16; Status DC Enoxaparin Sodium (Lovenox 60mg Syringe) 50 mg 1X ONCE SQ ; Start 05/01/17 at 21:45; Stop 05/01/17 at 21:45; Status DC Enoxaparin Sodium (Lovenox) 55 mg BID SQ ; Start 05/02/17 at 09:00; Stop at 09:00; Status DC Enoxaparin Sodium (Lovenox 60mg Syringe) 55 mg 1X ONCE SQ Last administered on 05/01/17at 22:35; Start 05/01/17 at 21:45; Stop 05/01/17 at 21:46; Status DC Iohexol (Omnipaque 300 Mg/ml) 75 ml 1X ONCE IV Last administered on 05/01/17at 22:11; Start 05/01/17 at 22:00; Stop 05/01/17 at 22:01; Status DC Midazolam HCl (Versed) 5 mg 1X ONCE IV ; Start 05/01/17 at 22:15; Stop at 22:18; Status DC Midazolam HCl (Versed) 1 mg 1X ONCE IV Last administered on 05/01/17at 22:30; Start 05/01/17 at 23:00; Stop 05/01/17 at 23:02; Status DC Cephalexin HCl (Keflex) 500 mg TID PO Last administered on 05/03/17at 20:27; Start 05/02/17 at 09:00; Stop 05/03/17 at 22:41; Status DC Alprazolam (Xanax) 0.25 mg QID PO Last administered on 05/02/17at 17:32; Start 05/02/17 at 09:00; Stop 05/02/17 at 19:27; Status DC Divalproex Sodium (Depakote Sprinkles) 125 mg BID92 PO Last administered on 05/08at 13:19; Start 05/02/17 at 09:00 Divalproex Sodium (Depakote Sprinkles) 500 mg QHS PO Last administered on at 19:41; Start 05/02/17 at 21:00; Stop 05/07/17 at 18:37; Status DC Lorazepam (Ativan) 0.5 mg PRN Q4HRS PRN PO ANXIETY / AGITATION Last administered on 05/07/17at 12:17; Start 05/02/17 at 01:00 Lorazepam (Ativan Intensol) 0.5 mg PRN Q4HRS PRN PO ANXIETY / AGITATION Last administered on 05/08/17at 13:19; Start 05/02/17 at 01:00 Olanzapine (ZyPREXA ZYDIS) 5 mg QHS PO Last administered on 05/07/17at 20:07; Start 05/02/17 at 21:00; Stop 05/08/17 at 19:10; Status DC Sertraline HCl (Zoloft) 100 mg DAILY PO Last administered on 05/08/17at 08:49; Start 05/02/17 at 09:00 Levofloxacin (Levaquin) 500 mg DAILY06 PO Last administered on 05/02/17at 08:53 ; Start 05/02/17 at 07:30; Stop 05/02/17 at 10:36; Status DC Lactobacillus Rhamnosus (Culturelle) 1 cap BID PO Last administered on at 08:50; Start 05/02/17 at 09:00 Levofloxacin (Levaquin) 250 mg DAILY06 PO Last administered on 05/06/17at 07:45 ; Start 05/03/17 at 06:00; Stop 05/06/17 at 18:15; Status DC Alprazolam (Xanax) 0.25 mg TID PO Last administered on 05/06/17at 14:25; Start 05/02/17 at 21:00; Stop 05/06/17 at 20:59; Status DC Alprazolam (Xanax) 0.25 mg BID PO Last administered on 05/08/17at 08:50; Start at 21:00; Stop 05/10/17 at 08:59 Alprazolam (Xanax) 0.25 mg DAILY PO ; Start 05/10/17 at 09:00; Stop 05/14/17 at 08 :59 Mirtazapine (Remeron) 7.5 mg QHS PO Last administered on 05/02/17 19:59; Start 05/02/17 at 21:00; Stop 05/03/17 at 19:31; Status DC Acetaminophen (Tylenol) 650 mg PRN Q6HRS PRN PO PAIN; Start 05/02/17 at 19:30 Aspirin (Children'S Aspirin) 81 mg DAILY PO Last administered on 05/08/17at 08:50 ; Start 05/03/17 at 09:00 Cyanocobalamin (Vitamin B-12) 250 mcg DAILY PO Last administered on 05/08/17 08 :50; Start 05/03/17 at 09:00 Al Hydroxide/Mg Hydroxide (Mylanta Plus Xs) 15 ml PRN AFTMEALHC PRN PO DYSPEPSIA; Start 05/02/17 at 19:30 Multi-Ingredient Ointment (Analgesic [place]) 1 beck PRN QID PRN TP MUSCLE PAIN; Start 05/02/17 at 19:30 Phenytoin Sodium (Dilantin) 100 mg BID PO Last administered on 05/08/17at 08:49; Start 05/02/17 at 21:00 Senna/Docusate Sodium (Senna Plus) 1 tab BID PO Last administered on 05/08/17 08:49; Start 05/02/17 at 21:00 Magnesium Hydroxide (Milk Of Magnesia) 2,400 mg PRN QHS PRN PO CONSTIPATION; Start 05/02/17 at 19:45 Potassium Chloride (Klor-Con) 20 meq DAILYWBKFT PO Last administered on at 08:50; Start 05/03/17 at 08:00 Neomycin/ Polymyxin/ Bacitracin (Triple Antibiotic Ointment) 1 pkt BID TP Last administered on 05/08/17 08:51; Start 05/03/17 at 21:00; Stop 05/08/17 at 20:59 Mirtazapine (Remeron) 15 mg QHS PO Last administered on 05/07/17at 20:07; Start 05/03/17 at 21:00 Trazodone HCl (Desyrel) 50 mg PRN QHS PRN PO SLEEP Last administered on at 01:56; Start 05/03/17 at 19:30 Alprazolam (Xanax) 0.25 mg 1X ONCE PO Last administered on 05/05/17at 09:36; Start 05/05/17 at 10:00; Stop 05/05/17 at 10:01; Status DC Buspirone HCl (Buspar) 5 mg TID@0900,1300,1700 PO Last administered on at 16:43; Start 05/06/17 at 09:00; Stop 05/06/17 at 18:23; Status DC Buspirone HCl (Buspar) 5 mg BID@1300,1700 PO Last administered on 05/08/17at 16: 14; Start 05/07/17 at 13:00 Buspirone HCl (Buspar) 10 mg DAILY PO Last administered on 05/08/17at 08:49; Start 05/07/17 at 09:00; Stop 05/08/17 at 19:10; Status DC Divalproex Sodium (Depakote Sprinkles) 750 mg QHS PO Last administered on at 20:07; Start 05/07/17 at 21:00 Olanzapine (ZyPREXA ZYDIS) 2.5 mg QHS PO ; Start 05/08/17 at 21:00; Stop 05/09/17 at 21:00 Active Scripts Active Reported Klor-Con (Potassium Chloride) 20 Meq Packet 20 Meq PO DAILY Xanax (Alprazolam) 0.25 Mg Tablet 0.25 Mg PO QID Zoloft (Sertraline Hcl) 100 Mg Tablet 100 Mg PO DAILY Lorazepam Intensol (Lorazepam) 2 Mg/1 Ml Oral.conc 0.5 Mg PO PRN Q4HRS PRN Senna S Tablet (Sennosides/Docusate Sodium) 1 Each Tablet 1 Tab PO BID Depakote Sprinkle (Divalproex Sodium) 125 Mg Cap.sprink 500 Mg PO QHS Depakote Sprinkle (Divalproex Sodium) 125 Mg Cap.sprink 125 Mg PO BID92 Tylenol (Acetaminophen) 325 Mg Tablet 650 Mg PO PRN Q6HRS PRN Olanzapine Odt (Olanzapine) 5 Mg Tab.rapdis 5 Mg PO QHS Analgesic [place] (Methyl Salicylate/Menthol) 28 Gm Oint...g. 1 Beck TP PRN QID PRN Maalox Maximum Strength Susp (Mag Hydrox/Al Hydrox/Simeth) 355 Ml Oral.susp 15 Ml PO PRN AFTMEALHC PRN Milk Of Magnesia (Magnesium Hydroxide) 2,400 Mg/10 Ml Oral.susp 2,400 Mg PO PRN QHS PRN Vitamin B-12 (Cyanocobalamin (Vitamin B-12)) 1,000 Mcg Tablet 250 Mcg PO DAILY Lorazepam 0.5 Mg Tablet 0.5 Mg PO PRN Q4HRS PRN Dilantin (Phenytoin Sodium Extended) 100 Mg Capsule 100 Mg PO BID Aspirin 81 Mg Tab.chew 81 Mg PO DAILY I have reviewed the current psychotropics carefully including drug interactions. Risk benefit ratio favors no change other than as noted in my dictated progress note. Diagnosis: Problems: (1) Dementia with behavioral disturbance (2) Anxiety disorder (3) Dementia in Alzheimer's disease with delusions (4) Dementia in Alzheimer's disease with depression (5) Dementia, vascular, with delusions (6) Dementia, vascular, with depression (7) Impulse control disorder NAKIA KO MD May 08, 2017 20:11
[2017-05-08] MEDS: MIRTAZAPINE 15 MG TABLET PO SCH (20:33)
[2017-05-09 06:41] VITALS: BP 116/67
[2017-05-09] MEDS: CYANOCOBALAMIN (VITAMIN B-12) 250 MCG TABLET PO SCH (08:42)
[2017-05-09] MEDS: POTASSIUM CHLORIDE 20 MEQ TABLET.ER. PO SCH (08:42)
[2017-05-09] MEDS: PHENYTOIN SODIUM EXTENDED 100 MG CAPSULE PO SCH ×2 (08:42→19:48)
[2017-05-09] MEDS: ASPIRIN 81 MG TAB.CHEW PO SCH (08:42)
[2017-05-09] MEDS: SENNOSIDES/DOCUSATE 8.6/50MG TABLET. PO SCH ×2 (08:42→19:49)
[2017-05-09] MEDS: SERTRALINE 100 MG TABLET. PO SCH (08:42)
[2017-05-09] MEDS: DIVALPROEX 125 MG CAP.SPRINK PO SCH ×3 (08:42→19:48)
[2017-05-09] MEDS: LACTOBACILLUS RHAMNOSUS GG 1 CAPSULE. PO SCH ×2 (08:42→19:47)
[2017-05-09] MEDS: ALPRAZolam 0.25 MG TABLET PO SCH ×2 (08:43→19:50)
[2017-05-09] MEDS: LORazepam 0.5 MG TABLET PO PRN ×2 (08:49→14:08)
[2017-05-09] MEDS: busPIRone 5 MG TABLET. PO SCH ×2 (14:08→17:00)
[2017-05-09 16:24] VITALS: BP 107/69
[2017-05-09] MEDS: MIRTAZAPINE 15 MG TABLET PO SCH (19:48)
--- NOTE | 2017-05-09 22:27 | PDOC ---
Exam Note: Dane Note: Please also refer to the separate dictated note~for this date of service dictated separately.~Patient seen individually. Discussed the patient with Nursing staff reviewed the chart.~Reviewed interim history and current functioning. Reviewed vital signs,~Labs/ Radiology~and current medications noted below. Continue current treatment with the changes noted in the dictated addendum note Assessment: Vital Signs: Vital Signs Date Time Temp Pulse Resp B/P (MAP) Pulse Ox O2 Delivery O2 Flow Rate FiO2 05/09/17 16:24 97.6 76 20 107/69 (82) 93 Room Air I&O Intake and Output 05/09/17 07:00 Intake Total 240 ml Balance 240 ml Intake Oral 240 ml Current Medications: Meds: Current Medications Diphtheria/ Tetanus/Acell Pertussis (Boostrix) 0.5 ml ONCE ONCE VAX IM Last administered on 05/01/17at 22:36; Start 05/01/17 at 19:15; Stop 05/01/17 at 19:16 ; Status DC Lorazepam (Ativan) 2 mg 1X ONCE IM Last administered on 05/01/17at 19:45; Start 05/01/17 at 19:45; Stop 05/01/17 at 19:46; Status DC Diphenhydramine HCl (Benadryl) 50 mg 1X ONCE IM Last administered on at 19:45; Start 05/01/17 at 19:45; Stop 05/01/17 at 19:46; Status DC Diphenhydramine HCl (Benadryl) 50 mg STK-MED ONCE .ROUTE ; Start 05/01/17 at 19: 36; Stop 05/01/17 at 19:37; Status DC Lorazepam (Ativan) 1 mg STK-MED ONCE .ROUTE ; Start 05/01/17 at 19:38; Stop at 19:39; Status DC Midazolam HCl (Versed) 2 mg 1X ONCE IV ; Start 05/01/17 at 20:30; Stop at 20:31; Status DC Midazolam HCl (Versed) 5 mg STK-MED ONCE .ROUTE ; Start 05/01/17 at 20:25; Stop 05/01/17 at 20:26; Status DC Midazolam HCl (Versed) 5 mg 1X ONCE NS Last administered on 05/01/17at 20:40; Start 05/01/17 at 21:00; Stop 05/01/17 at 21:01; Status DC Ceftriaxone Sodium (Rocephin Im) 1 gm 1X ONCE IM Last administered on at 22:36; Start 05/01/17 at 21:15; Stop 05/01/17 at 21:16; Status DC Enoxaparin Sodium (Lovenox 60mg Syringe) 50 mg 1X ONCE SQ ; Start 05/01/17 at 21:45; Stop 05/01/17 at 21:45; Status DC Enoxaparin Sodium (Lovenox) 55 mg BID SQ ; Start 05/02/17 at 09:00; Stop at 09:00; Status DC Enoxaparin Sodium (Lovenox 60mg Syringe) 55 mg 1X ONCE SQ Last administered on 05/01/17at 22:35; Start 05/01/17 at 21:45; Stop 05/01/17 at 21:46; Status DC Iohexol (Omnipaque 300 Mg/ml) 75 ml 1X ONCE IV Last administered on 05/01/17at 22:11; Start 05/01/17 at 22:00; Stop 05/01/17 at 22:01; Status DC Midazolam HCl (Versed) 5 mg 1X ONCE IV ; Start 05/01/17 at 22:15; Stop at 22:18; Status DC Midazolam HCl (Versed) 1 mg 1X ONCE IV Last administered on 05/01/17at 22:30; Start 05/01/17 at 23:00; Stop 05/01/17 at 23:02; Status DC Cephalexin HCl (Keflex) 500 mg TID PO Last administered on 05/03/17at 20:27; Start 05/02/17 at 09:00; Stop 05/03/17 at 22:41; Status DC Alprazolam (Xanax) 0.25 mg QID PO Last administered on 05/02/17at 17:32; Start 05/02/17 at 09:00; Stop 05/02/17 at 19:27; Status DC Divalproex Sodium (Depakote Sprinkles) 125 mg BID92 PO Last administered on 05/09at 14:08; Start 05/02/17 at 09:00 Divalproex Sodium (Depakote Sprinkles) 500 mg QHS PO Last administered on at 19:41; Start 05/02/17 at 21:00; Stop 05/07/17 at 18:37; Status DC Lorazepam (Ativan) 0.5 mg PRN Q4HRS PRN PO ANXIETY / AGITATION Last administered on 05/09/17 14:08; Start 05/02/17 at 01:00 Lorazepam (Ativan Intensol) 0.5 mg PRN Q4HRS PRN PO ANXIETY / AGITATION Last administered on 05/08/17at 13:19; Start 05/02/17 at 01:00 Olanzapine (ZyPREXA ZYDIS) 5 mg QHS PO Last administered on 05/07/17at 20:07; Start 05/02/17 at 21:00; Stop 05/08/17 at 19:10; Status DC Sertraline HCl (Zoloft) 100 mg DAILY PO Last administered on 05/09/17 08:42; Start 05/02/17 at 09:00 Levofloxacin (Levaquin) 500 mg DAILY06 PO Last administered on 05/02/17at 08:53 ; Start 05/02/17 at 07:30; Stop 05/02/17 at 10:36; Status DC Lactobacillus Rhamnosus (Culturelle) 1 cap BID PO Last administered on 19:47; Start 05/02/17 at 09:00 Levofloxacin (Levaquin) 250 mg DAILY06 PO Last administered on 05/06/17at 07:45 ; Start 05/03/17 at 06:00; Stop 05/06/17 at 18:15; Status DC Alprazolam (Xanax) 0.25 mg TID PO Last administered on 05/06/17at 14:25; Start 05/02/17 at 21:00; Stop 05/06/17 at 20:59; Status DC Alprazolam (Xanax) 0.25 mg BID PO Last administered on 05/09/17at 19:50; Start at 21:00; Stop 05/10/17 at 08:59 Alprazolam (Xanax) 0.25 mg DAILY PO ; Start 05/10/17 at 09:00; Stop 05/14/17 at 08 :59 Mirtazapine (Remeron) 7.5 mg QHS PO Last administered on 05/02/17 19:59; Start 05/02/17 at 21:00; Stop 05/03/17 at 19:31; Status DC Acetaminophen (Tylenol) 650 mg PRN Q6HRS PRN PO PAIN; Start 05/02/17 at 19:30 Aspirin (Children'S Aspirin) 81 mg DAILY PO Last administered on 05/09/17 08:42 ; Start 05/03/17 at 09:00 Cyanocobalamin (Vitamin B-12) 250 mcg DAILY PO Last administered on 05/09/17 08 :42; Start 05/03/17 at 09:00 Al Hydroxide/Mg Hydroxide (Mylanta Plus Xs) 15 ml PRN AFTMEALHC PRN PO DYSPEPSIA; Start 05/02/17 at 19:30 Multi-Ingredient Ointment (Analgesic [place]) 1 beck PRN QID PRN TP MUSCLE PAIN; Start 05/02/17 at 19:30 Phenytoin Sodium (Dilantin) 100 mg BID PO Last administered on 05/09/17 19:48; Start 05/02/17 at 21:00 Senna/Docusate Sodium (Senna Plus) 1 tab BID PO Last administered on 05/09/17 19:49; Start 05/02/17 at 21:00 Magnesium Hydroxide (Milk Of Magnesia) 2,400 mg PRN QHS PRN PO CONSTIPATION; Start 05/02/17 at 19:45 Potassium Chloride (Klor-Con) 20 meq DAILYWBKFT PO Last administered on at 08:42; Start 05/03/17 at 08:00 Neomycin/ Polymyxin/ Bacitracin (Triple Antibiotic Ointment) 1 pkt BID TP Last administered on 05/08/17 08:51; Start 05/03/17 at 21:00; Stop 05/08/17 at 20:59; Status DC Mirtazapine (Remeron) 15 mg QHS PO Last administered on 05/09/17 19:48; Start 05/03/17 at 21:00 Trazodone HCl (Desyrel) 50 mg PRN QHS PRN PO SLEEP Last administered on at 01:56; Start 05/03/17 at 19:30 Alprazolam (Xanax) 0.25 mg 1X ONCE PO Last administered on 05/05/17at 09:36; Start 05/05/17 at 10:00; Stop 05/05/17 at 10:01; Status DC Buspirone HCl (Buspar) 5 mg TID@0900,1300,1700 PO Last administered on at 16:43; Start 05/06/17 at 09:00; Stop 05/06/17 at 18:23; Status DC Buspirone HCl (Buspar) 5 mg BID@1300,1700 PO Last administered on 05/09/17at 14: 08; Start 05/07/17 at 13:00; Stop 05/09/17 at 18:34; Status DC Buspirone HCl (Buspar) 10 mg DAILY PO Last administered on 05/08/17at 08:49; Start 05/07/17 at 09:00; Stop 05/08/17 at 19:10; Status DC Divalproex Sodium (Depakote Sprinkles) 750 mg QHS PO Last administered on at 19:48; Start 05/07/17 at 21:00 Olanzapine (ZyPREXA ZYDIS) 2.5 mg QHS PO Last administered on 05/09/17at 19:48; Start 05/08/17 at 21:00; Stop 05/09/17 at 21:00; Status DC Active Scripts Active Reported Klor-Con (Potassium Chloride) 20 Meq Packet 20 Meq PO DAILY Xanax (Alprazolam) 0.25 Mg Tablet 0.25 Mg PO QID Zoloft (Sertraline Hcl) 100 Mg Tablet 100 Mg PO DAILY Lorazepam Intensol (Lorazepam) 2 Mg/1 Ml Oral.conc 0.5 Mg PO PRN Q4HRS PRN Senna S Tablet (Sennosides/Docusate Sodium) 1 Each Tablet 1 Tab PO BID Depakote Sprinkle (Divalproex Sodium) 125 Mg Cap.sprink 500 Mg PO QHS Depakote Sprinkle (Divalproex Sodium) 125 Mg Cap.sprink 125 Mg PO BID92 Tylenol (Acetaminophen) 325 Mg Tablet 650 Mg PO PRN Q6HRS PRN Olanzapine Odt (Olanzapine) 5 Mg Tab.rapdis 5 Mg PO QHS Analgesic [place] (Methyl Salicylate/Menthol) 28 Gm Oint...g. 1 Beck TP PRN QID PRN Maalox Maximum Strength Susp (Mag Hydrox/Al Hydrox/Simeth) 355 Ml Oral.susp 15 Ml PO PRN AFTMEALHC PRN Milk Of Magnesia (Magnesium Hydroxide) 2,400 Mg/10 Ml Oral.susp 2,400 Mg PO PRN QHS PRN Vitamin B-12 (Cyanocobalamin (Vitamin B-12)) 1,000 Mcg Tablet 250 Mcg PO DAILY Lorazepam 0.5 Mg Tablet 0.5 Mg PO PRN Q4HRS PRN Dilantin (Phenytoin Sodium Extended) 100 Mg Capsule 100 Mg PO BID Aspirin 81 Mg Tab.chew 81 Mg PO DAILY I have reviewed the current psychotropics carefully including drug interactions. Risk benefit ratio favors no change other than as noted in my dictated progress note. 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
--- NOTE | 2017-05-09 22:36 | PN ---
DATE: 05/07/2017 PSYCHIATRIC PROGRESS NOTE This is a late entry for 05/07/2017, covers elements not covered in my initial note of 05/07/2017. SUBJECTIVE: I met with the patient the evening of 05/07/2017. The patient takes her medications hidden in food. Gets anxious, restless, walking fast at times. Valproic acid level subtherapeutic at 30. REVIEW OF SYSTEMS: No CV, , pulmonary, eye, ENT system symptoms on review, still psychotic, confused. MENTAL STATUS EXAM: Oriented to herself. Insight, judgment, recent and remote memory, attention, concentration, fund of knowledge poor, consistent with her diagnosis mentioned in my initial note. IMPRESSION: Major neurocognitive disorder, Alzheimer, vascular with delusion, depression, behavioral disturbance. PLAN: Increase Depakote Sprinkles from 125 mg b.i.d. and 500 mg at bedtime to 125 mg b.i.d. and 750 mg at bedtime. Check CBC, CMP, valproic acid level in 3 days to reach a therapeutic level. Rest unchanged. MAN Leandro KO MD DR: [email or web address]/luz JOB#: [id number] / [id number]
--- NOTE | 2017-05-10 00:40 | PN ---
DATE: 05/08/2017 PSYCHIATRIC PROGRESS NOTE This is a late entry for 05/08/2017, covers elements not covered in my initial note of 05/08/2017. SUBJECTIVE: The patient was staffed at a treatment team meeting with the entire team the morning of 05/08/2017. The patient's daughter, Agata attended. Lengthy discussion about the patient's history, diagnosis, and medications. I met with the patient at length the evening of 05/08/2017 and during the day, I talked to Dr. Yandy Camacho, her psychiatrist from [facility] about the medication options. Dr. Camacho felt at times the patient has done better with no psychotropics and wondered if she could give her a drug holiday off the Zyprexa and BuSpar. We will taper and stop the Zyprexa and discontinue the BuSpar on a trial basis and later consider tapering the Depakote as well. She is wandering, anxious, received PRNs at times, takes her medications crushed 1 bite in pudding, slept 6 hours, incontinent at times, received trazodone at night. REVIEW OF SYSTEMS: No CV, , pulmonary, eye, ENT system symptoms on review. Reliability poor. MENTAL STATUS EXAM: Oriented to herself. Insight, judgment, recent and remote memory, attention, concentration, fund of knowledge poor, consistent with her diagnosis. IMPRESSION: Major neurocognitive disorder, Alzheimer, vascular with delusion, depression, behavioral disturbance. PLAN: Taper and stop the Zyprexa. Discontinue the BuSpar. Consider tapering Depakote. Continue Remeron and Zoloft for now. MAN Leandro KO MD DR: [email or web address]/luz JOB#: [id number] / [id number]
[2017-05-10 06:39] VITALS: BP 160/55
[2017-05-10] MEDS: SENNOSIDES/DOCUSATE 8.6/50MG TABLET. PO SCH ×2 (07:41→19:47)
[2017-05-10] MEDS: PHENYTOIN SODIUM EXTENDED 100 MG CAPSULE PO SCH ×2 (07:41→19:47)
[2017-05-10] MEDS: CYANOCOBALAMIN (VITAMIN B-12) 250 MCG TABLET PO SCH (07:41)
[2017-05-10] MEDS: ASPIRIN 81 MG TAB.CHEW PO SCH (07:41)
[2017-05-10] MEDS: POTASSIUM CHLORIDE 20 MEQ TABLET.ER. PO SCH (07:42)
[2017-05-10] MEDS: SERTRALINE 100 MG TABLET. PO SCH (07:42)
[2017-05-10] MEDS: LACTOBACILLUS RHAMNOSUS GG 1 CAPSULE. PO SCH ×2 (07:42→19:47)
[2017-05-10] MEDS: DIVALPROEX 125 MG CAP.SPRINK PO SCH ×3 (07:42→19:47)
[2017-05-10] MEDS: ALPRAZolam 0.25 MG TABLET PO SCH (07:46)
[2017-05-10 08:47] LABS: BASO % 0 % (0-3); EOS # 0.3 x10^3/uL (0.0-0.7); EOS % 9 % (0-3); HEMATOCRIT 37.5 % (36.0-47.0); HEMOGLOBIN 12.6 g/dL (12.0-15.5); LYMPH # 1.2 x10^3/uL (1.0-4.8); LYMPH % 34 % (24-48); MEAN CORPUSCULAR HEMOGLOBIN 31 pg (25-35); MEAN CORPUSCULAR HGB CONC 34 g/dL (31-37); MEAN CORPUSCULAR VOLUME 93 fL (79-100); MONO # 0.3 x10^3/uL (0.0-1.1); MONO % 8 % (0-9); NEUT # 1.6 x10^3uL (1.8-7.7); NEUT % 48 % (31-73); PLATELET COUNT 202 x10^3/uL (140-400); RED BLOOD COUNT 4.03 x10^6/uL (3.50-5.40); RED CELL DISTRIBUTION WIDTH 14.4 % (11.5-14.5); WHITE BLOOD COUNT 3.4 x10^3/uL (4.0-11.0)
[2017-05-10 09:06] LABS: ALBUMIN 3.5 g/dL (3.4-5.0); ALK PHOS 98 U/L (46-116); ALT (SGPT) 30 U/L (14-59); ANION GAP 9 (6-14); AST (SGOT) 29 U/L (15-37); BLOOD UREA NITROGEN 24 mg/dL (7-20); BUN/CREATININE RATIO 30 (6-20); CALCIUM 8.8 mg/dL (8.5-10.1); CARBON DIOXIDE 28 mmol/L (21-32); CHLORIDE 105 mmol/L (98-107); CREATININE 0.8 mg/dL (0.6-1.0); GLUCOSE 86 mg/dL (70-99); POTASSIUM 3.6 mmol/L (3.5-5.1); SODIUM 142 mmol/L (136-145); TOTAL BILIRUBIN 0.4 mg/dL (0.2-1.0)
[2017-05-10 09:11] LABS: VAL ACID 38 mcg/mL (50-100)
[2017-05-10] MEDS: LORazepam 0.5 MG TABLET PO PRN (13:23)
[2017-05-10 16:46] VITALS: BP 123/67
[2017-05-10] MEDS: MIRTAZAPINE 15 MG TABLET PO SCH (19:47)
--- NOTE | 2017-05-10 21:12 | PDOC ---
Exam Note: Dane Note: Please also refer to the separate dictated note~for this date of service dictated separately.~Patient seen individually. Discussed the patient with Nursing staff reviewed the chart.~Reviewed interim history and current functioning. Reviewed vital signs,~Labs/ Radiology~and current medications noted below. Continue current treatment with the changes noted in the dictated addendum note Assessment: Vital Signs: Vital Signs Date Time Temp Pulse Resp B/P (MAP) Pulse Ox O2 Delivery O2 Flow Rate FiO2 05/10/17 16:46 97.5 75 18 123/67 (85) 95 Room Air I&O Intake and Output 05/10/17 07:00 Intake Total 240 ml Balance 240 ml Intake Oral 240 ml Labs: Laboratory Tests Test 05/10/17 08:17 White Blood Count 3.4 x10^3/uL (4.0-11.0) L Red Blood Count 4.03 x10^6/uL (3.50-5.40) Hemoglobin 12.6 g/dL (12.0-15.5) Hematocrit 37.5 % (36.0-47.0) Mean Corpuscular Volume 93 fL (79-100) Mean Corpuscular Hemoglobin 31 pg (25-35) Mean Corpuscular Hemoglobin Concent 34 g/dL (31-37) Red Cell Distribution Width 14.4 % (11.5-14.5) Platelet Count 202 x10^3/uL (140-400) Neutrophils (%) (Auto) 48 % (31-73) Lymphocytes (%) (Auto) 34 % (24-48) Monocytes (%) (Auto) 8 % (0-9) Eosinophils (%) (Auto) 9 % (0-3) H Basophils (%) (Auto) 0 % (0-3) Neutrophils # (Auto) 1.6 x10^3uL (1.8-7.7) L Lymphocytes # (Auto) 1.2 x10^3/uL (1.0-4.8) Monocytes # (Auto) 0.3 x10^3/uL (0.0-1.1) Eosinophils # (Auto) 0.3 x10^3/uL (0.0-0.7) Basophils # (Auto) 0.0 x10^3/uL (0.0-0.2) Sodium Level 142 mmol/L (136-145) Potassium Level 3.6 mmol/L (3.5-5.1) Chloride Level 105 mmol/L (98-107) Carbon Dioxide Level 28 mmol/L (21-32) Anion Gap 9 (6-14) Blood Urea Nitrogen 24 mg/dL (7-20) H Creatinine 0.8 mg/dL (0.6-1.0) Estimated GFR (Cockcroft-Gault) 68.0 BUN/Creatinine Ratio 30 (6-20) H Glucose Level 86 mg/dL (70-99) Calcium Level 8.8 mg/dL (8.5-10.1) Total Bilirubin 0.4 mg/dL (0.2-1.0) Aspartate Amino Transferase (AST) 29 U/L (15-37) Alanine Aminotransferase (ALT) 30 U/L (14-59) Alkaline Phosphatase 98 U/L (46-116) Total Protein 7.0 g/dL (6.4-8.2) Albumin 3.5 g/dL (3.4-5.0) Albumin/Globulin Ratio 1.0 (1.0-1.7) Valproic Acid Level 38 mcg/mL (50-100) L Valproic Acid Last Dose Date 05/09/2017 Valproic Acid Last Dose Time 2100 Current Medications: Meds: Current Medications Diphtheria/ Tetanus/Acell Pertussis (Boostrix) 0.5 ml ONCE ONCE VAX IM Last administered on 05/01/17at 22:36; Start 05/01/17 at 19:15; Stop 05/01/17 at 19:16 ; Status DC Lorazepam (Ativan) 2 mg 1X ONCE IM Last administered on 05/01/17at 19:45; Start 05/01/17 at 19:45; Stop 05/01/17 at 19:46; Status DC Diphenhydramine HCl (Benadryl) 50 mg 1X ONCE IM Last administered on at 19:45; Start 05/01/17 at 19:45; Stop 05/01/17 at 19:46; Status DC Diphenhydramine HCl (Benadryl) 50 mg STK-MED ONCE .ROUTE ; Start 05/01/17 at 19: 36; Stop 05/01/17 at 19:37; Status DC Lorazepam (Ativan) 1 mg STK-MED ONCE .ROUTE ; Start 05/01/17 at 19:38; Stop at 19:39; Status DC Midazolam HCl (Versed) 2 mg 1X ONCE IV ; Start 05/01/17 at 20:30; Stop at 20:31; Status DC Midazolam HCl (Versed) 5 mg STK-MED ONCE .ROUTE ; Start 05/01/17 at 20:25; Stop 05/01/17 at 20:26; Status DC Midazolam HCl (Versed) 5 mg 1X ONCE NS Last administered on 05/01/17at 20:40; Start 05/01/17 at 21:00; Stop 05/01/17 at 21:01; Status DC Ceftriaxone Sodium (Rocephin Im) 1 gm 1X ONCE IM Last administered on at 22:36; Start 05/01/17 at 21:15; Stop 05/01/17 at 21:16; Status DC Enoxaparin Sodium (Lovenox 60mg Syringe) 50 mg 1X ONCE SQ ; Start 05/01/17 at 21:45; Stop 05/01/17 at 21:45; Status DC Enoxaparin Sodium (Lovenox) 55 mg BID SQ ; Start 05/02/17 at 09:00; Stop at 09:00; Status DC Enoxaparin Sodium (Lovenox 60mg Syringe) 55 mg 1X ONCE SQ Last administered on 05/01/17at 22:35; Start 05/01/17 at 21:45; Stop 05/01/17 at 21:46; Status DC Iohexol (Omnipaque 300 Mg/ml) 75 ml 1X ONCE IV Last administered on 05/01/17at 22:11; Start 05/01/17 at 22:00; Stop 05/01/17 at 22:01; Status DC Midazolam HCl (Versed) 5 mg 1X ONCE IV ; Start 05/01/17 at 22:15; Stop at 22:18; Status DC Midazolam HCl (Versed) 1 mg 1X ONCE IV Last administered on 05/01/17at 22:30; Start 05/01/17 at 23:00; Stop 05/01/17 at 23:02; Status DC Cephalexin HCl (Keflex) 500 mg TID PO Last administered on 05/03/17at 20:27; Start 05/02/17 at 09:00; Stop 05/03/17 at 22:41; Status DC Alprazolam (Xanax) 0.25 mg QID PO Last administered on 05/02/17 17:32; Start 05/02/17 at 09:00; Stop 05/02/17 at 19:27; Status DC Divalproex Sodium (Depakote Sprinkles) 125 mg BID92 PO Last administered on 05/10 13:22; Start 05/02/17 at 09:00 Divalproex Sodium (Depakote Sprinkles) 500 mg QHS PO Last administered on 19:41; Start 05/02/17 at 21:00; Stop 05/07/17 at 18:37; Status DC Lorazepam (Ativan) 0.5 mg PRN Q4HRS PRN PO ANXIETY / AGITATION Last administered on 05/10/17 13:23; Start 05/02/17 at 01:00 Lorazepam (Ativan Intensol) 0.5 mg PRN Q4HRS PRN PO ANXIETY / AGITATION Last administered on 05/08/17 13:19; Start 05/02/17 at 01:00 Olanzapine (ZyPREXA ZYDIS) 5 mg QHS PO Last administered on 05/07/17 20:07; Start 05/02/17 at 21:00; Stop 05/08/17 at 19:10; Status DC Sertraline HCl (Zoloft) 100 mg DAILY PO Last administered on 05/10/17 07:42; Start 05/02/17 at 09:00 Levofloxacin (Levaquin) 500 mg DAILY06 PO Last administered on 05/02/17 08:53 ; Start 05/02/17 at 07:30; Stop 05/02/17 at 10:36; Status DC Lactobacillus Rhamnosus (Culturelle) 1 cap BID PO Last administered on 19:47; Start 05/02/17 at 09:00 Levofloxacin (Levaquin) 250 mg DAILY06 PO Last administered on 05/06/17 07:45 ; Start 05/03/17 at 06:00; Stop 05/06/17 at 18:15; Status DC Alprazolam (Xanax) 0.25 mg TID PO Last administered on 05/06/17 14:25; Start 05/02/17 at 21:00; Stop 05/06/17 at 20:59; Status DC Alprazolam (Xanax) 0.25 mg BID PO Last administered on 05/09/17 19:50; Start at 21:00; Stop 05/10/17 at 08:59; Status DC Alprazolam (Xanax) 0.25 mg DAILY PO Last administered on 05/10/17 07:46; Start 05/10/17 at 09:00; Stop 05/14/17 at 08:59 Mirtazapine (Remeron) 7.5 mg QHS PO Last administered on 05/02/17 19:59; Start 05/02/17 at 21:00; Stop 05/03/17 at 19:31; Status DC Acetaminophen (Tylenol) 650 mg PRN Q6HRS PRN PO PAIN; Start 05/02/17 at 19:30 Aspirin (Children'S Aspirin) 81 mg DAILY PO Last administered on 05/10/17at 07:41 ; Start 05/03/17 at 09:00 Cyanocobalamin (Vitamin B-12) 250 mcg DAILY PO Last administered on 05/10/17 07 :41; Start 05/03/17 at 09:00 Al Hydroxide/Mg Hydroxide (Mylanta Plus Xs) 15 ml PRN AFTMEALHC PRN PO DYSPEPSIA; Start 05/02/17 at 19:30 Multi-Ingredient Ointment (Analgesic [place]) 1 beck PRN QID PRN TP MUSCLE PAIN; Start 05/02/17 at 19:30 Phenytoin Sodium (Dilantin) 100 mg BID PO Last administered on 05/10/17 19:47; Start 05/02/17 at 21:00 Senna/Docusate Sodium (Senna Plus) 1 tab BID PO Last administered on 05/10/17 19:47; Start 05/02/17 at 21:00 Magnesium Hydroxide (Milk Of Magnesia) 2,400 mg PRN QHS PRN PO CONSTIPATION; Start 05/02/17 at 19:45 Potassium Chloride (Klor-Con) 20 meq DAILYWBKFT PO Last administered on at 07:42; Start 05/03/17 at 08:00 Neomycin/ Polymyxin/ Bacitracin (Triple Antibiotic Ointment) 1 pkt BID TP Last administered on 05/08/17at 08:51; Start 05/03/17 at 21:00; Stop 05/08/17 at 20:59; Status DC Mirtazapine (Remeron) 15 mg QHS PO Last administered on 05/10/17at 19:47; Start 05/03/17 at 21:00 Trazodone HCl (Desyrel) 50 mg PRN QHS PRN PO SLEEP Last administered on at 01:56; Start 05/03/17 at 19:30 Alprazolam (Xanax) 0.25 mg 1X ONCE PO Last administered on 05/05/17at 09:36; Start 05/05/17 at 10:00; Stop 05/05/17 at 10:01; Status DC Buspirone HCl (Buspar) 5 mg TID@0900,1300,1700 PO Last administered on at 16:43; Start 05/06/17 at 09:00; Stop 05/06/17 at 18:23; Status DC Buspirone HCl (Buspar) 5 mg BID@1300,1700 PO Last administered on 05/09/17at 14: 08; Start 05/07/17 at 13:00; Stop 05/09/17 at 18:34; Status DC Buspirone HCl (Buspar) 10 mg DAILY PO Last administered on 05/08/17at 08:49; Start 05/07/17 at 09:00; Stop 05/08/17 at 19:10; Status DC Divalproex Sodium (Depakote Sprinkles) 750 mg QHS PO Last administered on 19:47; Start 05/07/17 at 21:00 Olanzapine (ZyPREXA ZYDIS) 2.5 mg QHS PO Last administered on 05/09/17 19:48; Start 05/08/17 at 21:00; Stop 05/09/17 at 21:00; Status DC Active Scripts Active Reported Klor-Con (Potassium Chloride) 20 Meq Packet 20 Meq PO DAILY Xanax (Alprazolam) 0.25 Mg Tablet 0.25 Mg PO QID Zoloft (Sertraline Hcl) 100 Mg Tablet 100 Mg PO DAILY Lorazepam Intensol (Lorazepam) 2 Mg/1 Ml Oral.conc 0.5 Mg PO PRN Q4HRS PRN Senna S Tablet (Sennosides/Docusate Sodium) 1 Each Tablet 1 Tab PO BID Depakote Sprinkle (Divalproex Sodium) 125 Mg Cap.sprink 500 Mg PO QHS Depakote Sprinkle (Divalproex Sodium) 125 Mg Cap.sprink 125 Mg PO BID92 Tylenol (Acetaminophen) 325 Mg Tablet 650 Mg PO PRN Q6HRS PRN Olanzapine Odt (Olanzapine) 5 Mg Tab.rapdis 5 Mg PO QHS Analgesic [place] (Methyl Salicylate/Menthol) 28 Gm Oint...g. 1 Beck TP PRN QID PRN Maalox Maximum Strength Susp (Mag Hydrox/Al Hydrox/Simeth) 355 Ml Oral.susp 15 Ml PO PRN AFTMEALHC PRN Milk Of Magnesia (Magnesium Hydroxide) 2,400 Mg/10 Ml Oral.susp 2,400 Mg PO PRN QHS PRN Vitamin B-12 (Cyanocobalamin (Vitamin B-12)) 1,000 Mcg Tablet 250 Mcg PO DAILY Lorazepam 0.5 Mg Tablet 0.5 Mg PO PRN Q4HRS PRN Dilantin (Phenytoin Sodium Extended) 100 Mg Capsule 100 Mg PO BID Aspirin 81 Mg Tab.chew 81 Mg PO DAILY I have reviewed the current psychotropics carefully including drug interactions. Risk benefit ratio favors no change other than as noted in my dictated progress note. 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
[2017-05-11 06:31] VITALS: BP 110/60
[2017-05-11] MEDS: POTASSIUM CHLORIDE 20 MEQ TABLET.ER. PO SCH (07:29)
[2017-05-11] MEDS: DIVALPROEX 125 MG CAP.SPRINK PO SCH ×3 (07:29→19:55)
[2017-05-11] MEDS: CYANOCOBALAMIN (VITAMIN B-12) 250 MCG TABLET PO SCH (07:29)
[2017-05-11] MEDS: LACTOBACILLUS RHAMNOSUS GG 1 CAPSULE. PO SCH ×2 (07:29→19:54)
[2017-05-11] MEDS: ASPIRIN 81 MG TAB.CHEW PO SCH (07:29)
[2017-05-11] MEDS: SENNOSIDES/DOCUSATE 8.6/50MG TABLET. PO SCH ×2 (07:29→19:54)
[2017-05-11] MEDS: SERTRALINE 100 MG TABLET. PO SCH (07:29)
[2017-05-11] MEDS: PHENYTOIN SODIUM EXTENDED 100 MG CAPSULE PO SCH ×2 (07:29→19:54)
[2017-05-11] MEDS: ALPRAZolam 0.25 MG TABLET PO SCH (07:30)
[2017-05-11] MEDS: LORazepam 0.5 MG TABLET PO PRN (15:35)
[2017-05-11 16:17] VITALS: BP 142/55
--- NOTE | 2017-05-11 19:02 | PN ---
DATE: 05/09/2017 PSYCHIATRIC PROGRESS NOTE This is a late entry for 05/09/2017, covers elements not covered in my initial note of 05/09/2017. SUBJECTIVE: The patient slept 6-1/2 hours. I met with her the evening of 05/09/2017. She is anxious, received 2 p.r.n., Ativan twice, pacing out of bed, climbing over the bed, rattling the doors. Oral intake is poor. REVIEW OF SYSTEMS: No CV, , pulmonary, eye, ENT system symptoms on review. Reliability poor. MENTAL STATUS EXAM: Oriented to herself. Insight, judgment, recent and remote memory, attention, concentration, fund of knowledge poor, consistent with her diagnosis mentioned in my initial note. IMPRESSION: Major neurocognitive disorder, Alzheimer, vascular with delusion, depression, behavioral disturbance. Rest unchanged. PLAN: Continue current psychotropics. After discussion with Dr. Camacho, we have stopped her BuSpar and now the Zyprexa has been discontinued. We may consider tapering the Depakote as well during the baseline drug free evaluation and then deciding. NAKIA KO MD DR: [email or web address]/luz JOB#: [id number] / [id number]
--- NOTE | 2017-05-11 19:13 | PN ---
DATE: 05/10/2017 PSYCHIATRIC PROGRESS NOTE This late entry 05/10/2017 covers elements not covered in my initial note 05/10/2017. SUBJECTIVE: Met with the patient in evening of 05/10/2017. The patient has been wandering, confused, delusional, somewhat anxious. REVIEW OF SYSTEMS: No CV, , pulmonary, eye, ENT system symptoms on review. Reliability is poor. MENTAL STATUS EXAM: Oriented to herself. Insight, judgment, recent and remote memory, attention, concentration, fund of knowledge is poor, consistent with her diagnoses mentioned in my initial note. IMPRESSION: Major neurocognitive disorder, Alzheimer, vascular with depression, delusion, behavioral disturbance. Rest is unchanged. PLAN: Continue psychotropics mentioned in my initial note. We will go ahead and stop the bedtime Depakote on 05/11/[address] Camacho, her outpatient psychiatrist, in a drug-free trial and then decide. NAKIA KO MD DR: [email or web address]/luz JOB#: [id number] / [id number]
[2017-05-11] MEDS: MIRTAZAPINE 15 MG TABLET PO SCH (19:54)
--- NOTE | 2017-05-11 20:17 | PDOC ---
Exam Note: Dane Note: Please also refer to the separate dictated note~for this date of service dictated separately.~Patient seen individually. Discussed the patient with Nursing staff reviewed the chart.~Reviewed interim history and current functioning. Reviewed vital signs,~Labs/ Radiology~and current medications noted below. Continue current treatment with the changes noted in the dictated addendum note Assessment: Vital Signs: Vital Signs Date Time Temp Pulse Resp B/P (MAP) Pulse Ox O2 Delivery O2 Flow Rate FiO2 05/11/17 16:17 96.9 83 22 142/55 (84) 98 05/10/17 16:46 Room Air I&O Intake and Output 05/11/17 07:00 Intake Total 420 ml Balance 420 ml Intake Oral 420 ml # Bowel Movements 1 Current Medications: Meds: Current Medications Diphtheria/ Tetanus/Acell Pertussis (Boostrix) 0.5 ml ONCE ONCE VAX IM Last administered on 05/01/17at 22:36; Start 05/01/17 at 19:15; Stop 05/01/17 at 19:16 ; Status DC Lorazepam (Ativan) 2 mg 1X ONCE IM Last administered on 05/01/17at 19:45; Start 05/01/17 at 19:45; Stop 05/01/17 at 19:46; Status DC Diphenhydramine HCl (Benadryl) 50 mg 1X ONCE IM Last administered on at 19:45; Start 05/01/17 at 19:45; Stop 05/01/17 at 19:46; Status DC Diphenhydramine HCl (Benadryl) 50 mg STK-MED ONCE .ROUTE ; Start 05/01/17 at 19: 36; Stop 05/01/17 at 19:37; Status DC Lorazepam (Ativan) 1 mg STK-MED ONCE .ROUTE ; Start 05/01/17 at 19:38; Stop at 19:39; Status DC Midazolam HCl (Versed) 2 mg 1X ONCE IV ; Start 05/01/17 at 20:30; Stop at 20:31; Status DC Midazolam HCl (Versed) 5 mg STK-MED ONCE .ROUTE ; Start 05/01/17 at 20:25; Stop 05/01/17 at 20:26; Status DC Midazolam HCl (Versed) 5 mg 1X ONCE NS Last administered on 05/01/17at 20:40; Start 05/01/17 at 21:00; Stop 05/01/17 at 21:01; Status DC Ceftriaxone Sodium (Rocephin Im) 1 gm 1X ONCE IM Last administered on at 22:36; Start 05/01/17 at 21:15; Stop 05/01/17 at 21:16; Status DC Enoxaparin Sodium (Lovenox 60mg Syringe) 50 mg 1X ONCE SQ ; Start 05/01/17 at 21:45; Stop 05/01/17 at 21:45; Status DC Enoxaparin Sodium (Lovenox) 55 mg BID SQ ; Start 05/02/17 at 09:00; Stop at 09:00; Status DC Enoxaparin Sodium (Lovenox 60mg Syringe) 55 mg 1X ONCE SQ Last administered on 05/01/17at 22:35; Start 05/01/17 at 21:45; Stop 05/01/17 at 21:46; Status DC Iohexol (Omnipaque 300 Mg/ml) 75 ml 1X ONCE IV Last administered on 05/01/17at 22:11; Start 05/01/17 at 22:00; Stop 05/01/17 at 22:01; Status DC Midazolam HCl (Versed) 5 mg 1X ONCE IV ; Start 05/01/17 at 22:15; Stop at 22:18; Status DC Midazolam HCl (Versed) 1 mg 1X ONCE IV Last administered on 05/01/17at 22:30; Start 05/01/17 at 23:00; Stop 05/01/17 at 23:02; Status DC Cephalexin HCl (Keflex) 500 mg TID PO Last administered on 05/03/17at 20:27; Start 05/02/17 at 09:00; Stop 05/03/17 at 22:41; Status DC Alprazolam (Xanax) 0.25 mg QID PO Last administered on 05/02/17at 17:32; Start 05/02/17 at 09:00; Stop 05/02/17 at 19:27; Status DC Divalproex Sodium (Depakote Sprinkles) 125 mg BID92 PO Last administered on 05/11at 14:05; Start 05/02/17 at 09:00; Stop 05/11/17 at 18:42; Status DC Divalproex Sodium (Depakote Sprinkles) 500 mg QHS PO Last administered on at 19:41; Start 05/02/17 at 21:00; Stop 05/07/17 at 18:37; Status DC Lorazepam (Ativan) 0.5 mg PRN Q4HRS PRN PO ANXIETY / AGITATION Last administered on 05/11/17at 15:35; Start 05/02/17 at 01:00 Lorazepam (Ativan Intensol) 0.5 mg PRN Q4HRS PRN PO ANXIETY / AGITATION Last administered on 05/08/17 13:19; Start 05/02/17 at 01:00 Olanzapine (ZyPREXA ZYDIS) 5 mg QHS PO Last administered on 05/07/17at 20:07; Start 05/02/17 at 21:00; Stop 05/08/17 at 19:10; Status DC Sertraline HCl (Zoloft) 100 mg DAILY PO Last administered on 05/11/17 07:29; Start 05/02/17 at 09:00 Levofloxacin (Levaquin) 500 mg DAILY06 PO Last administered on 05/02/17at 08:53 ; Start 05/02/17 at 07:30; Stop 05/02/17 at 10:36; Status DC Lactobacillus Rhamnosus (Culturelle) 1 cap BID PO Last administered on at 19:54; Start 05/02/17 at 09:00 Levofloxacin (Levaquin) 250 mg DAILY06 PO Last administered on 05/06/17at 07:45 ; Start 05/03/17 at 06:00; Stop 05/06/17 at 18:15; Status DC Alprazolam (Xanax) 0.25 mg TID PO Last administered on 05/06/17at 14:25; Start 05/02/17 at 21:00; Stop 05/06/17 at 20:59; Status DC Alprazolam (Xanax) 0.25 mg BID PO Last administered on 05/09/17at 19:50; Start at 21:00; Stop 05/10/17 at 08:59; Status DC Alprazolam (Xanax) 0.25 mg DAILY PO Last administered on 05/11/17 07:30; Start 05/10/17 at 09:00; Stop 05/14/17 at 08:59 Mirtazapine (Remeron) 7.5 mg QHS PO Last administered on 05/02/17 19:59; Start 05/02/17 at 21:00; Stop 05/03/17 at 19:31; Status DC Acetaminophen (Tylenol) 650 mg PRN Q6HRS PRN PO PAIN; Start 05/02/17 at 19:30 Aspirin (Children'S Aspirin) 81 mg DAILY PO Last administered on 05/11/17 07:29 ; Start 05/03/17 at 09:00 Cyanocobalamin (Vitamin B-12) 250 mcg DAILY PO Last administered on 05/11/17 07 :29; Start 05/03/17 at 09:00 Al Hydroxide/Mg Hydroxide (Mylanta Plus Xs) 15 ml PRN AFTMEALHC PRN PO DYSPEPSIA; Start 05/02/17 at 19:30 Multi-Ingredient Ointment (Analgesic [place]) 1 beck PRN QID PRN TP MUSCLE PAIN; Start 05/02/17 at 19:30 Phenytoin Sodium (Dilantin) 100 mg BID PO Last administered on 05/11/17 19:54; Start 05/02/17 at 21:00 Senna/Docusate Sodium (Senna Plus) 1 tab BID PO Last administered on 05/11/17 19:54; Start 05/02/17 at 21:00 Magnesium Hydroxide (Milk Of Magnesia) 2,400 mg PRN QHS PRN PO CONSTIPATION; Start 05/02/17 at 19:45 Potassium Chloride (Klor-Con) 20 meq DAILYWBKFT PO Last administered on 07:29; Start 05/03/17 at 08:00 Neomycin/ Polymyxin/ Bacitracin (Triple Antibiotic Ointment) 1 pkt BID TP Last administered on 05/08/17at 08:51; Start 05/03/17 at 21:00; Stop 05/08/17 at 20:59; Status DC Mirtazapine (Remeron) 15 mg QHS PO Last administered on 05/11/17 19:54; Start 05/03/17 at 21:00 Trazodone HCl (Desyrel) 50 mg PRN QHS PRN PO SLEEP Last administered on at 01:56; Start 05/03/17 at 19:30 Alprazolam (Xanax) 0.25 mg 1X ONCE PO Last administered on 05/05/17at 09:36; Start 05/05/17 at 10:00; Stop 05/05/17 at 10:01; Status DC Buspirone HCl (Buspar) 5 mg TID@0900,1300,1700 PO Last administered on at 16:43; Start 05/06/17 at 09:00; Stop 05/06/17 at 18:23; Status DC Buspirone HCl (Buspar) 5 mg BID@1300,1700 PO Last administered on 05/09/17at 14: 08; Start 05/07/17 at 13:00; Stop 05/09/17 at 18:34; Status DC Buspirone HCl (Buspar) 10 mg DAILY PO Last administered on 05/08/17at 08:49; Start 05/07/17 at 09:00; Stop 05/08/17 at 19:10; Status DC Divalproex Sodium (Depakote Sprinkles) 750 mg QHS PO Last administered on at 19:55; Start 05/07/17 at 21:00 Olanzapine (ZyPREXA ZYDIS) 2.5 mg QHS PO Last administered on 05/09/17at 19:48; Start 05/08/17 at 21:00; Stop 05/09/17 at 21:00; Status DC Divalproex Sodium (Depakote Sprinkles) 250 mg BID92 PO ; Start 05/12/17 at 09:00 Active Scripts Active Reported Klor-Con (Potassium Chloride) 20 Meq Packet 20 Meq PO DAILY Xanax (Alprazolam) 0.25 Mg Tablet 0.25 Mg PO QID Zoloft (Sertraline Hcl) 100 Mg Tablet 100 Mg PO DAILY Lorazepam Intensol (Lorazepam) 2 Mg/1 Ml Oral.conc 0.5 Mg PO PRN Q4HRS PRN Senna S Tablet (Sennosides/Docusate Sodium) 1 Each Tablet 1 Tab PO BID Depakote Sprinkle (Divalproex Sodium) 125 Mg Cap.sprink 500 Mg PO QHS Depakote Sprinkle (Divalproex Sodium) 125 Mg Cap.sprink 125 Mg PO BID92 Tylenol (Acetaminophen) 325 Mg Tablet 650 Mg PO PRN Q6HRS PRN Olanzapine Odt (Olanzapine) 5 Mg Tab.rapdis 5 Mg PO QHS Analgesic [place] (Methyl Salicylate/Menthol) 28 Gm Oint...g. 1 Beck TP PRN QID PRN Maalox Maximum Strength Susp (Mag Hydrox/Al Hydrox/Simeth) 355 Ml Oral.susp 15 Ml PO PRN AFTMEALHC PRN Milk Of Magnesia (Magnesium Hydroxide) 2,400 Mg/10 Ml Oral.susp 2,400 Mg PO PRN QHS PRN Vitamin B-12 (Cyanocobalamin (Vitamin B-12)) 1,000 Mcg Tablet 250 Mcg PO DAILY Lorazepam 0.5 Mg Tablet 0.5 Mg PO PRN Q4HRS PRN Dilantin (Phenytoin Sodium Extended) 100 Mg Capsule 100 Mg PO BID Aspirin 81 Mg Tab.chew 81 Mg PO DAILY I have reviewed the current psychotropics carefully including drug interactions. Risk benefit ratio favors no change other than as noted in my dictated progress note. Diagnosis: Problems: (1) Dementia with behavioral disturbance (2) Anxiety disorder (3) Dementia in Alzheimer's disease with delusions (4) Dementia in Alzheimer's disease with depression (5) Dementia, vascular, with delusions (6) Dementia, vascular, with depression (7) Impulse control disorder NAKIA KO MD May 11, 2017 20:17
[2017-05-12 06:31] VITALS: BP 144/54
[2017-05-12] MEDS: PHENYTOIN SODIUM EXTENDED 100 MG CAPSULE PO SCH ×2 (07:43→19:28)
[2017-05-12] MEDS: LACTOBACILLUS RHAMNOSUS GG 1 CAPSULE. PO SCH ×2 (07:43→19:27)
[2017-05-12] MEDS: ALPRAZolam 0.25 MG TABLET PO SCH (07:43)
[2017-05-12] MEDS: SENNOSIDES/DOCUSATE 8.6/50MG TABLET. PO SCH ×2 (07:43→19:27)
[2017-05-12] MEDS: CYANOCOBALAMIN (VITAMIN B-12) 250 MCG TABLET PO SCH (07:43)
[2017-05-12] MEDS: ASPIRIN 81 MG TAB.CHEW PO SCH (07:44)
[2017-05-12] MEDS: SERTRALINE 100 MG TABLET. PO SCH (07:44)
[2017-05-12] MEDS: POTASSIUM CHLORIDE 20 MEQ TABLET.ER. PO SCH (07:44)
[2017-05-12] MEDS: DIVALPROEX 125 MG CAP.SPRINK PO SCH ×3 (07:45→19:27)
[2017-05-12 16:33] VITALS: BP 143/86
[2017-05-12] MEDS: MIRTAZAPINE 15 MG TABLET PO SCH (19:28)
--- NOTE | 2017-05-12 20:05 | PDOC ---
Exam Note: Dane Note: Please also refer to the separate dictated note~for this date of service dictated separately.~Patient seen individually. Discussed the patient with Nursing staff reviewed the chart.~Reviewed interim history and current functioning. Reviewed vital signs,~Labs/ Radiology~and current medications noted below. Continue current treatment with the changes noted in the dictated addendum note Assessment: Vital Signs: Vital Signs Date Time Temp Pulse Resp B/P (MAP) Pulse Ox O2 Delivery O2 Flow Rate FiO2 05/12/17 16:33 97.3 76 18 143/86 (105) 94 05/10/17 16:46 Room Air I&O Intake and Output 05/12/17 07:00 Intake Total 180 ml Balance 180 ml Intake Oral 180 ml Current Medications: Meds: Current Medications Diphtheria/ Tetanus/Acell Pertussis (Boostrix) 0.5 ml ONCE ONCE VAX IM Last administered on 05/01/17at 22:36; Start 05/01/17 at 19:15; Stop 05/01/17 at 19:16 ; Status DC Lorazepam (Ativan) 2 mg 1X ONCE IM Last administered on 05/01/17at 19:45; Start 05/01/17 at 19:45; Stop 05/01/17 at 19:46; Status DC Diphenhydramine HCl (Benadryl) 50 mg 1X ONCE IM Last administered on at 19:45; Start 05/01/17 at 19:45; Stop 05/01/17 at 19:46; Status DC Diphenhydramine HCl (Benadryl) 50 mg STK-MED ONCE .ROUTE ; Start 05/01/17 at 19: 36; Stop 05/01/17 at 19:37; Status DC Lorazepam (Ativan) 1 mg STK-MED ONCE .ROUTE ; Start 05/01/17 at 19:38; Stop at 19:39; Status DC Midazolam HCl (Versed) 2 mg 1X ONCE IV ; Start 05/01/17 at 20:30; Stop at 20:31; Status DC Midazolam HCl (Versed) 5 mg STK-MED ONCE .ROUTE ; Start 05/01/17 at 20:25; Stop 05/01/17 at 20:26; Status DC Midazolam HCl (Versed) 5 mg 1X ONCE NS Last administered on 05/01/17at 20:40; Start 05/01/17 at 21:00; Stop 05/01/17 at 21:01; Status DC Ceftriaxone Sodium (Rocephin Im) 1 gm 1X ONCE IM Last administered on at 22:36; Start 05/01/17 at 21:15; Stop 05/01/17 at 21:16; Status DC Enoxaparin Sodium (Lovenox 60mg Syringe) 50 mg 1X ONCE SQ ; Start 05/01/17 at 21:45; Stop 05/01/17 at 21:45; Status DC Enoxaparin Sodium (Lovenox) 55 mg BID SQ ; Start 05/02/17 at 09:00; Stop at 09:00; Status DC Enoxaparin Sodium (Lovenox 60mg Syringe) 55 mg 1X ONCE SQ Last administered on 05/01/17at 22:35; Start 05/01/17 at 21:45; Stop 05/01/17 at 21:46; Status DC Iohexol (Omnipaque 300 Mg/ml) 75 ml 1X ONCE IV Last administered on 05/01/17at 22:11; Start 05/01/17 at 22:00; Stop 05/01/17 at 22:01; Status DC Midazolam HCl (Versed) 5 mg 1X ONCE IV ; Start 05/01/17 at 22:15; Stop at 22:18; Status DC Midazolam HCl (Versed) 1 mg 1X ONCE IV Last administered on 05/01/17at 22:30; Start 05/01/17 at 23:00; Stop 05/01/17 at 23:02; Status DC Cephalexin HCl (Keflex) 500 mg TID PO Last administered on 05/03/17at 20:27; Start 05/02/17 at 09:00; Stop 05/03/17 at 22:41; Status DC Alprazolam (Xanax) 0.25 mg QID PO Last administered on 05/02/17at 17:32; Start 05/02/17 at 09:00; Stop 05/02/17 at 19:27; Status DC Divalproex Sodium (Depakote Sprinkles) 125 mg BID92 PO Last administered on 05/11at 14:05; Start 05/02/17 at 09:00; Stop 05/11/17 at 18:42; Status DC Divalproex Sodium (Depakote Sprinkles) 500 mg QHS PO Last administered on at 19:41; Start 05/02/17 at 21:00; Stop 05/07/17 at 18:37; Status DC Lorazepam (Ativan) 0.5 mg PRN Q4HRS PRN PO ANXIETY / AGITATION Last administered on 05/11/17at 15:35; Start 05/02/17 at 01:00 Lorazepam (Ativan Intensol) 0.5 mg PRN Q4HRS PRN PO ANXIETY / AGITATION Last administered on 05/08/17at 13:19; Start 05/02/17 at 01:00 Olanzapine (ZyPREXA ZYDIS) 5 mg QHS PO Last administered on 05/07/17at 20:07; Start 05/02/17 at 21:00; Stop 05/08/17 at 19:10; Status DC Sertraline HCl (Zoloft) 100 mg DAILY PO Last administered on 05/12/17 07:44; Start 05/02/17 at 09:00 Levofloxacin (Levaquin) 500 mg DAILY06 PO Last administered on 05/02/17at 08:53 ; Start 05/02/17 at 07:30; Stop 05/02/17 at 10:36; Status DC Lactobacillus Rhamnosus (Culturelle) 1 cap BID PO Last administered on 19:27; Start 05/02/17 at 09:00 Levofloxacin (Levaquin) 250 mg DAILY06 PO Last administered on 05/06/17at 07:45 ; Start 05/03/17 at 06:00; Stop 05/06/17 at 18:15; Status DC Alprazolam (Xanax) 0.25 mg TID PO Last administered on 05/06/17at 14:25; Start 05/02/17 at 21:00; Stop 05/06/17 at 20:59; Status DC Alprazolam (Xanax) 0.25 mg BID PO Last administered on 05/09/17at 19:50; Start at 21:00; Stop 05/10/17 at 08:59; Status DC Alprazolam (Xanax) 0.25 mg DAILY PO Last administered on 05/12/17 07:43; Start 05/10/17 at 09:00; Stop 05/14/17 at 08:59 Mirtazapine (Remeron) 7.5 mg QHS PO Last administered on 05/02/17 19:59; Start 05/02/17 at 21:00; Stop 05/03/17 at 19:31; Status DC Acetaminophen (Tylenol) 650 mg PRN Q6HRS PRN PO PAIN; Start 05/02/17 at 19:30 Aspirin (Children'S Aspirin) 81 mg DAILY PO Last administered on 05/12/17 07:44 ; Start 05/03/17 at 09:00 Cyanocobalamin (Vitamin B-12) 250 mcg DAILY PO Last administered on 05/12/17 07 :43; Start 05/03/17 at 09:00 Al Hydroxide/Mg Hydroxide (Mylanta Plus Xs) 15 ml PRN AFTMEALHC PRN PO DYSPEPSIA; Start 05/02/17 at 19:30 Multi-Ingredient Ointment (Analgesic [place]) 1 beck PRN QID PRN TP MUSCLE PAIN; Start 05/02/17 at 19:30 Phenytoin Sodium (Dilantin) 100 mg BID PO Last administered on 05/12/17 19:28; Start 05/02/17 at 21:00 Senna/Docusate Sodium (Senna Plus) 1 tab BID PO Last administered on 05/12/17 19:27; Start 05/02/17 at 21:00 Magnesium Hydroxide (Milk Of Magnesia) 2,400 mg PRN QHS PRN PO CONSTIPATION; Start 05/02/17 at 19:45 Potassium Chloride (Klor-Con) 20 meq DAILYWBKFT PO Last administered on 07:44; Start 05/03/17 at 08:00 Neomycin/ Polymyxin/ Bacitracin (Triple Antibiotic Ointment) 1 pkt BID TP Last administered on 05/08/17 08:51; Start 05/03/17 at 21:00; Stop 05/08/17 at 20:59; Status DC Mirtazapine (Remeron) 15 mg QHS PO Last administered on 05/12/17 19:28; Start 05/03/17 at 21:00 Trazodone HCl (Desyrel) 50 mg PRN QHS PRN PO SLEEP Last administered on at 01:56; Start 05/03/17 at 19:30 Alprazolam (Xanax) 0.25 mg 1X ONCE PO Last administered on 05/05/17at 09:36; Start 05/05/17 at 10:00; Stop 05/05/17 at 10:01; Status DC Buspirone HCl (Buspar) 5 mg TID@0900,1300,1700 PO Last administered on at 16:43; Start 05/06/17 at 09:00; Stop 05/06/17 at 18:23; Status DC Buspirone HCl (Buspar) 5 mg BID@1300,1700 PO Last administered on 05/09/17at 14: 08; Start 05/07/17 at 13:00; Stop 05/09/17 at 18:34; Status DC Buspirone HCl (Buspar) 10 mg DAILY PO Last administered on 05/08/17at 08:49; Start 05/07/17 at 09:00; Stop 05/08/17 at 19:10; Status DC Divalproex Sodium (Depakote Sprinkles) 750 mg QHS PO Last administered on at 19:27; Start 05/07/17 at 21:00 Olanzapine (ZyPREXA ZYDIS) 2.5 mg QHS PO Last administered on 05/09/17at 19:48; Start 05/08/17 at 21:00; Stop 05/09/17 at 21:00; Status DC Divalproex Sodium (Depakote Sprinkles) 250 mg BID92 PO Last administered on 05/12at 12:46; Start 05/12/17 at 09:00 Active Scripts Active Reported Klor-Con (Potassium Chloride) 20 Meq Packet 20 Meq PO DAILY Xanax (Alprazolam) 0.25 Mg Tablet 0.25 Mg PO QID Zoloft (Sertraline Hcl) 100 Mg Tablet 100 Mg PO DAILY Lorazepam Intensol (Lorazepam) 2 Mg/1 Ml Oral.conc 0.5 Mg PO PRN Q4HRS PRN Senna S Tablet (Sennosides/Docusate Sodium) 1 Each Tablet 1 Tab PO BID Depakote Sprinkle (Divalproex Sodium) 125 Mg Cap.sprink 500 Mg PO QHS Depakote Sprinkle (Divalproex Sodium) 125 Mg Cap.sprink 125 Mg PO BID92 Tylenol (Acetaminophen) 325 Mg Tablet 650 Mg PO PRN Q6HRS PRN Olanzapine Odt (Olanzapine) 5 Mg Tab.rapdis 5 Mg PO QHS Analgesic [place] (Methyl Salicylate/Menthol) 28 Gm Oint...g. 1 Beck TP PRN QID PRN Maalox Maximum Strength Susp (Mag Hydrox/Al Hydrox/Simeth) 355 Ml Oral.susp 15 Ml PO PRN AFTMEALHC PRN Milk Of Magnesia (Magnesium Hydroxide) 2,400 Mg/10 Ml Oral.susp 2,400 Mg PO PRN QHS PRN Vitamin B-12 (Cyanocobalamin (Vitamin B-12)) 1,000 Mcg Tablet 250 Mcg PO DAILY Lorazepam 0.5 Mg Tablet 0.5 Mg PO PRN Q4HRS PRN Dilantin (Phenytoin Sodium Extended) 100 Mg Capsule 100 Mg PO BID Aspirin 81 Mg Tab.chew 81 Mg PO DAILY I have reviewed the current psychotropics carefully including drug interactions. Risk benefit ratio favors no change other than as noted in my dictated progress note. Diagnosis: Problems: (1) Hypernatremia (2) Metabolic encephalopathy (3) Breakthrough seizure (4) Dementia with behavioral disturbance (5) Anxiety disorder (6) Dementia in Alzheimer's disease with delusions (7) Dementia in Alzheimer's disease with depression (8) Dementia, vascular, with delusions (9) Dementia, vascular, with depression (10) Impulse control disorder NAKIA KO MD May 12, 2017 20:05
[2017-05-13 06:16] VITALS: BP 115/73
--- NOTE | 2017-05-13 06:38 | PN ---
DATE: 05/11/2017 PSYCHIATRIC PROGRESS NOTE This is a late entry for 05/11/2017, covers elements not covered in my initial note of 05/11/2017. SUBJECTIVE: I met with the patient the evening of 05/11/2017. The patient has been confused, anxious, exit seeking, agitated in the evening, scratching at nursing staff, took her medications in chocolate pudding. REVIEW OF SYSTEMS: No CV, , pulmonary, eye, ENT system symptoms on review. Reliability poor. MENTAL STATUS EXAM: Oriented to herself. Insight, judgment, recent and remote memory, attention, concentration, fund of knowledge poor, consistent with her diagnosis mentioned in my initial note. IMPRESSION: Major neurocognitive disorder, Alzheimer, vascular with depression, delusion, behavioral disturbance. Rest unchanged. PLAN: I had considered tapering and stopping the Depakote as Dr. Camacho, her outpatient psychiatrist had suggested a trial off psychotropics. Nevertheless, the patient has a history of seizure disorder. Granted she is on Dilantin, but additionally, she has been on Depakote, which may well have compensated and controlled her seizures as well and I prefer not to stop the Depakote. Level is low at 38. We will increase the Depakote to 250 mg twice a day and 750 mg at night. Check CBC, CMP, valproic acid level in 3 days in an attempt to get it therapeutic. The other psychotropics were discontinued previously including the BuSpar and the Zyprexa. We will reassess and where to go next depending on her progress. NAKIA KO MD DR: [email or web address] JOB#: [id number] / [id number]
[2017-05-13] MEDS: CYANOCOBALAMIN (VITAMIN B-12) 250 MCG TABLET PO SCH (08:21)
[2017-05-13] MEDS: ALPRAZolam 0.25 MG TABLET PO SCH (08:21)
[2017-05-13] MEDS: PHENYTOIN SODIUM EXTENDED 100 MG CAPSULE PO SCH ×2 (08:22→21:01)
[2017-05-13] MEDS: LACTOBACILLUS RHAMNOSUS GG 1 CAPSULE. PO SCH ×2 (08:22→21:02)
[2017-05-13] MEDS: DIVALPROEX 125 MG CAP.SPRINK PO SCH ×3 (08:22→21:01)
[2017-05-13] MEDS: SENNOSIDES/DOCUSATE 8.6/50MG TABLET. PO SCH ×2 (08:22→21:01)
[2017-05-13] MEDS: SERTRALINE 100 MG TABLET. PO SCH (08:22)
[2017-05-13] MEDS: ASPIRIN 81 MG TAB.CHEW PO SCH (08:22)
[2017-05-13] MEDS: POTASSIUM CHLORIDE 20 MEQ TABLET.ER. PO SCH (08:23)
[2017-05-13] MEDS: LORazepam INTENSOL 2 MG/ML BOTTLE PO PRN (15:34)
--- NOTE | 2017-05-13 16:31 | OP ---
DATE OF SURGERY: 05/12/2017 PSYCHIATRIC PROGRESS NOTE This late entry 05/12/2017 covers elements not covered in my initial note of 05/12/2017. SUBJECTIVE: Met with the patient in the evening of 05/12/2017, The patient slept 6-1/2 hours previous evening, remains confused, anxious, wandering, received Ativan at 13:20, grabbed another demented patient, banging on the door after dinner, wanting the door open because she felt her mother was coming to visit her, redirected. REVIEW OF SYSTEMS: No CV, , pulmonary, eye, ENT system symptoms on review. Reliability is poor. MENTAL STATUS EXAM: Oriented to herself. Insight, judgment, recent and remote memory, attention, concentration, fund of knowledge is poor, consistent with her diagnoses mentioned in my initial note. PLAN: Continue current psychotropics. We have attempted to reduce her psychotropics, but she continues to have fairly intermittently disruptive behaviors. We will have to reassess for [address] reinstitute. NAKIA KO MD DR: [email or web address] JOB#: [id number] / [id number]
--- NOTE | 2017-05-13 20:00 | PDOC ---
Exam Note: Dane Note: Please also refer to the separate dictated note~for this date of service dictated separately.~Patient seen individually. Discussed the patient with Nursing staff reviewed the chart.~Reviewed interim history and current functioning. Reviewed vital signs,~Labs/ Radiology~and current medications noted below. Continue current treatment with the changes noted in the dictated addendum note Assessment: Vital Signs: Vital Signs Date Time Temp Pulse Resp B/P (MAP) Pulse Ox O2 Delivery O2 Flow Rate FiO2 05/13/17 15:59 98.5 20 05/13/17 06:16 112 115/73 (87) 93 05/10/17 16:46 Room Air I&O Intake and Output 05/13/17 07:00 Intake Total 400 ml Balance 400 ml Intake Oral 400 ml # Voids 1 # Bowel Movements 1 Current Medications: Meds: Current Medications Diphtheria/ Tetanus/Acell Pertussis (Boostrix) 0.5 ml ONCE ONCE VAX IM Last administered on 05/01/17at 22:36; Start 05/01/17 at 19:15; Stop 05/01/17 at 19:16 ; Status DC Lorazepam (Ativan) 2 mg 1X ONCE IM Last administered on 05/01/17at 19:45; Start 05/01/17 at 19:45; Stop 05/01/17 at 19:46; Status DC Diphenhydramine HCl (Benadryl) 50 mg 1X ONCE IM Last administered on at 19:45; Start 05/01/17 at 19:45; Stop 05/01/17 at 19:46; Status DC Diphenhydramine HCl (Benadryl) 50 mg STK-MED ONCE .ROUTE ; Start 05/01/17 at 19: 36; Stop 05/01/17 at 19:37; Status DC Lorazepam (Ativan) 1 mg STK-MED ONCE .ROUTE ; Start 05/01/17 at 19:38; Stop at 19:39; Status DC Midazolam HCl (Versed) 2 mg 1X ONCE IV ; Start 05/01/17 at 20:30; Stop at 20:31; Status DC Midazolam HCl (Versed) 5 mg STK-MED ONCE .ROUTE ; Start 05/01/17 at 20:25; Stop 05/01/17 at 20:26; Status DC Midazolam HCl (Versed) 5 mg 1X ONCE NS Last administered on 05/01/17at 20:40; Start 05/01/17 at 21:00; Stop 05/01/17 at 21:01; Status DC Ceftriaxone Sodium (Rocephin Im) 1 gm 1X ONCE IM Last administered on at 22:36; Start 05/01/17 at 21:15; Stop 05/01/17 at 21:16; Status DC Enoxaparin Sodium (Lovenox 60mg Syringe) 50 mg 1X ONCE SQ ; Start 05/01/17 at 21:45; Stop 05/01/17 at 21:45; Status DC Enoxaparin Sodium (Lovenox) 55 mg BID SQ ; Start 05/02/17 at 09:00; Stop at 09:00; Status DC Enoxaparin Sodium (Lovenox 60mg Syringe) 55 mg 1X ONCE SQ Last administered on 05/01/17at 22:35; Start 05/01/17 at 21:45; Stop 05/01/17 at 21:46; Status DC Iohexol (Omnipaque 300 Mg/ml) 75 ml 1X ONCE IV Last administered on 05/01/17at 22:11; Start 05/01/17 at 22:00; Stop 05/01/17 at 22:01; Status DC Midazolam HCl (Versed) 5 mg 1X ONCE IV ; Start 05/01/17 at 22:15; Stop at 22:18; Status DC Midazolam HCl (Versed) 1 mg 1X ONCE IV Last administered on 05/01/17at 22:30; Start 05/01/17 at 23:00; Stop 05/01/17 at 23:02; Status DC Cephalexin HCl (Keflex) 500 mg TID PO Last administered on 05/03/17at 20:27; Start 05/02/17 at 09:00; Stop 05/03/17 at 22:41; Status DC Alprazolam (Xanax) 0.25 mg QID PO Last administered on 05/02/17at 17:32; Start 05/02/17 at 09:00; Stop 05/02/17 at 19:27; Status DC Divalproex Sodium (Depakote Sprinkles) 125 mg BID92 PO Last administered on 05/11 14:05; Start 05/02/17 at 09:00; Stop 05/11/17 at 18:42; Status DC Divalproex Sodium (Depakote Sprinkles) 500 mg QHS PO Last administered on 19:41; Start 05/02/17 at 21:00; Stop 05/07/17 at 18:37; Status DC Lorazepam (Ativan) 0.5 mg PRN Q4HRS PRN PO ANXIETY / AGITATION Last administered on 05/11/17 15:35; Start 05/02/17 at 01:00 Lorazepam (Ativan Intensol) 0.5 mg PRN Q4HRS PRN PO ANXIETY / AGITATION Last administered on 05/13/17 15:34; Start 05/02/17 at 01:00 Olanzapine (ZyPREXA ZYDIS) 5 mg QHS PO Last administered on 05/07/17 20:07; Start 05/02/17 at 21:00; Stop 05/08/17 at 19:10; Status DC Sertraline HCl (Zoloft) 100 mg DAILY PO Last administered on 05/13/17 08:22; Start 05/02/17 at 09:00 Levofloxacin (Levaquin) 500 mg DAILY06 PO Last administered on 05/02/17 08:53 ; Start 05/02/17 at 07:30; Stop 05/02/17 at 10:36; Status DC Lactobacillus Rhamnosus (Culturelle) 1 cap BID PO Last administered on 08:22; Start 05/02/17 at 09:00 Levofloxacin (Levaquin) 250 mg DAILY06 PO Last administered on 05/06/17at 07:45 ; Start 05/03/17 at 06:00; Stop 05/06/17 at 18:15; Status DC Alprazolam (Xanax) 0.25 mg TID PO Last administered on 05/06/17 14:25; Start 05/02/17 at 21:00; Stop 05/06/17 at 20:59; Status DC Alprazolam (Xanax) 0.25 mg BID PO Last administered on 05/09/17 19:50; Start at 21:00; Stop 05/10/17 at 08:59; Status DC Alprazolam (Xanax) 0.25 mg DAILY PO Last administered on 05/13/17 08:21; Start 05/10/17 at 09:00; Stop 05/14/17 at 08:59 Mirtazapine (Remeron) 7.5 mg QHS PO Last administered on 05/02/17 19:59; Start 05/02/17 at 21:00; Stop 05/03/17 at 19:31; Status DC Acetaminophen (Tylenol) 650 mg PRN Q6HRS PRN PO PAIN; Start 05/02/17 at 19:30 Aspirin (Children'S Aspirin) 81 mg DAILY PO Last administered on 05/13/17 08:22 ; Start 05/03/17 at 09:00 Cyanocobalamin (Vitamin B-12) 250 mcg DAILY PO Last administered on 05/13/17 08 :21; Start 05/03/17 at 09:00 Al Hydroxide/Mg Hydroxide (Mylanta Plus Xs) 15 ml PRN AFTMEALHC PRN PO DYSPEPSIA; Start 05/02/17 at 19:30 Multi-Ingredient Ointment (Analgesic [place]) 1 beck PRN QID PRN TP MUSCLE PAIN; Start 05/02/17 at 19:30 Phenytoin Sodium (Dilantin) 100 mg BID PO Last administered on 05/13/17 08:22; Start 05/02/17 at 21:00 Senna/Docusate Sodium (Senna Plus) 1 tab BID PO Last administered on 05/13/17 08:22; Start 05/02/17 at 21:00 Magnesium Hydroxide (Milk Of Magnesia) 2,400 mg PRN QHS PRN PO CONSTIPATION; Start 05/02/17 at 19:45 Potassium Chloride (Klor-Con) 20 meq DAILYWBKFT PO Last administered on 08:23; Start 05/03/17 at 08:00 Neomycin/ Polymyxin/ Bacitracin (Triple Antibiotic Ointment) 1 pkt BID TP Last administered on 05/08/17at 08:51; Start 05/03/17 at 21:00; Stop 05/08/17 at 20:59; Status DC Mirtazapine (Remeron) 15 mg QHS PO Last administered on 05/12/17at 19:28; Start 05/03/17 at 21:00 Trazodone HCl (Desyrel) 50 mg PRN QHS PRN PO SLEEP Last administered on at 01:56; Start 05/03/17 at 19:30 Alprazolam (Xanax) 0.25 mg 1X ONCE PO Last administered on 05/05/17at 09:36; Start 05/05/17 at 10:00; Stop 05/05/17 at 10:01; Status DC Buspirone HCl (Buspar) 5 mg TID@0900,1300,1700 PO Last administered on at 16:43; Start 05/06/17 at 09:00; Stop 05/06/17 at 18:23; Status DC Buspirone HCl (Buspar) 5 mg BID@1300,1700 PO Last administered on 05/09/17at 14: 08; Start 05/07/17 at 13:00; Stop 05/09/17 at 18:34; Status DC Buspirone HCl (Buspar) 10 mg DAILY PO Last administered on 05/08/17at 08:49; Start 05/07/17 at 09:00; Stop 05/08/17 at 19:10; Status DC Divalproex Sodium (Depakote Sprinkles) 750 mg QHS PO Last administered on at 19:27; Start 05/07/17 at 21:00 Olanzapine (ZyPREXA ZYDIS) 2.5 mg QHS PO Last administered on 05/09/17at 19:48; Start 05/08/17 at 21:00; Stop 05/09/17 at 21:00; Status DC Divalproex Sodium (Depakote Sprinkles) 250 mg BID92 PO Last administered on 05/13at 13:45; Start 05/12/17 at 09:00 Active Scripts Active Reported Klor-Con (Potassium Chloride) 20 Meq Packet 20 Meq PO DAILY Xanax (Alprazolam) 0.25 Mg Tablet 0.25 Mg PO QID Zoloft (Sertraline Hcl) 100 Mg Tablet 100 Mg PO DAILY Lorazepam Intensol (Lorazepam) 2 Mg/1 Ml Oral.conc 0.5 Mg PO PRN Q4HRS PRN Senna S Tablet (Sennosides/Docusate Sodium) 1 Each Tablet 1 Tab PO BID Depakote Sprinkle (Divalproex Sodium) 125 Mg Cap.sprink 500 Mg PO QHS Depakote Sprinkle (Divalproex Sodium) 125 Mg Cap.sprink 125 Mg PO BID92 Tylenol (Acetaminophen) 325 Mg Tablet 650 Mg PO PRN Q6HRS PRN Olanzapine Odt (Olanzapine) 5 Mg Tab.rapdis 5 Mg PO QHS Analgesic [place] (Methyl Salicylate/Menthol) 28 Gm Oint...g. 1 Bcek TP PRN QID PRN Maalox Maximum Strength Susp (Mag Hydrox/Al Hydrox/Simeth) 355 Ml Oral.susp 15 Ml PO PRN AFTMEALHC PRN Milk Of Magnesia (Magnesium Hydroxide) 2,400 Mg/10 Ml Oral.susp 2,400 Mg PO PRN QHS PRN Vitamin B-12 (Cyanocobalamin (Vitamin B-12)) 1,000 Mcg Tablet 250 Mcg PO DAILY Lorazepam 0.5 Mg Tablet 0.5 Mg PO PRN Q4HRS PRN Dilantin (Phenytoin Sodium Extended) 100 Mg Capsule 100 Mg PO BID Aspirin 81 Mg Tab.chew 81 Mg PO DAILY I have reviewed the current psychotropics carefully including drug interactions. Risk benefit ratio favors no change other than as noted in my dictated progress note. Diagnosis: Problems: (1) Dementia with behavioral disturbance (2) Anxiety disorder (3) Dementia in Alzheimer's disease with delusions (4) Dementia in Alzheimer's disease with depression (5) Dementia, vascular, with delusions (6) Dementia, vascular, with depression (7) Impulse control disorder NAKIA KO MD May 13, 2017 20:00
[2017-05-13] MEDS: MIRTAZAPINE 15 MG TABLET PO SCH (21:02)
[2017-05-14 06:31] VITALS: BP 151/80
[2017-05-14 06:33] VITALS: BP 151/80
[2017-05-14] MEDS: CYANOCOBALAMIN (VITAMIN B-12) 250 MCG TABLET PO SCH (08:08)
[2017-05-14] MEDS: SERTRALINE 100 MG TABLET. PO SCH (08:08)
[2017-05-14] MEDS: POTASSIUM CHLORIDE 20 MEQ TABLET.ER. PO SCH (08:08)
[2017-05-14] MEDS: SENNOSIDES/DOCUSATE 8.6/50MG TABLET. PO SCH ×2 (08:08→19:09)
[2017-05-14] MEDS: LACTOBACILLUS RHAMNOSUS GG 1 CAPSULE. PO SCH ×2 (08:08→19:09)
[2017-05-14] MEDS: ASPIRIN 81 MG TAB.CHEW PO SCH (08:08)
[2017-05-14] MEDS: PHENYTOIN SODIUM EXTENDED 100 MG CAPSULE PO SCH ×2 (08:08→19:09)
[2017-05-14] MEDS: DIVALPROEX 125 MG CAP.SPRINK PO SCH ×3 (08:09→19:09)
[2017-05-14] MEDS: LORazepam 0.5 MG TABLET PO PRN ×2 (08:51→19:11)
[2017-05-14 13:02] LABS: BASO % 1 % (0-3); EOS # 0.2 x10^3/uL (0.0-0.7); EOS % 3 % (0-3); HEMATOCRIT 37.4 % (36.0-47.0); HEMOGLOBIN 12.4 g/dL (12.0-15.5); LYMPH # 1.9 x10^3/uL (1.0-4.8); LYMPH % 37 % (24-48); MEAN CORPUSCULAR HEMOGLOBIN 32 pg (25-35); MEAN CORPUSCULAR HGB CONC 33 g/dL (31-37); MEAN CORPUSCULAR VOLUME 95 fL (79-100); MONO # 0.4 x10^3/uL (0.0-1.1); MONO % 9 % (0-9); NEUT # 2.5 x10^3uL (1.8-7.7); NEUT % 51 % (31-73); PLATELET COUNT 200 x10^3/uL (140-400); RED BLOOD COUNT 3.93 x10^6/uL (3.50-5.40); RED CELL DISTRIBUTION WIDTH 14.9 % (11.5-14.5)
[2017-05-14 13:16] LABS: ALBUMIN 3.6 g/dL (3.4-5.0); CALCIUM 8.7 mg/dL (8.5-10.1); CREATININE 0.9 mg/dL (0.6-1.0); GFR 59.4; POTASSIUM 4.5 mmol/L (3.5-5.1); TOTAL BILIRUBIN 0.3 mg/dL (0.2-1.0); TOTAL PROTEIN 7.2 g/dL (6.4-8.2)
[2017-05-14 13:30] LABS: VAL ACID 51 mcg/mL (50-100)
[2017-05-14 16:26] VITALS: BP 141/64
[2017-05-14] MEDS: MIRTAZAPINE 15 MG TABLET PO SCH (19:09)
--- NOTE | 2017-05-14 20:04 | PDOC ---
Exam Note: Dane Note: Please also refer to the separate dictated note~for this date of service dictated separately.~Patient seen individually. Discussed the patient with Nursing staff reviewed the chart.~Reviewed interim history and current functioning. Reviewed vital signs,~Labs/ Radiology~and current medications noted below. Continue current treatment with the changes noted in the dictated addendum note Assessment: Vital Signs: Vital Signs Date Time Temp Pulse Resp B/P (MAP) Pulse Ox O2 Delivery O2 Flow Rate FiO2 05/14/17 16:26 97.7 64 20 141/64 (89) 98 05/10/17 16:46 Room Air I&O Intake and Output 05/14/17 07:00 Intake Total 640 ml Balance 640 ml Intake Oral 640 ml # Voids 2 # Bowel Movements 1 Labs: Laboratory Tests Test 05/14/17 12:55 White Blood Count 5.0 x10^3/uL (4.0-11.0) Red Blood Count 3.93 x10^6/uL (3.50-5.40) Hemoglobin 12.4 g/dL (12.0-15.5) Hematocrit 37.4 % (36.0-47.0) Mean Corpuscular Volume 95 fL (79-100) Mean Corpuscular Hemoglobin 32 pg (25-35) Mean Corpuscular Hemoglobin Concent 33 g/dL (31-37) Red Cell Distribution Width 14.9 % (11.5-14.5) H Platelet Count 200 x10^3/uL (140-400) Neutrophils (%) (Auto) 51 % (31-73) Lymphocytes (%) (Auto) 37 % (24-48) Monocytes (%) (Auto) 9 % (0-9) Eosinophils (%) (Auto) 3 % (0-3) Basophils (%) (Auto) 1 % (0-3) Neutrophils # (Auto) 2.5 x10^3uL (1.8-7.7) Lymphocytes # (Auto) 1.9 x10^3/uL (1.0-4.8) Monocytes # (Auto) 0.4 x10^3/uL (0.0-1.1) Eosinophils # (Auto) 0.2 x10^3/uL (0.0-0.7) Basophils # (Auto) 0.0 x10^3/uL (0.0-0.2) Sodium Level 141 mmol/L (136-145) Potassium Level 4.5 mmol/L (3.5-5.1) Chloride Level 105 mmol/L (98-107) Carbon Dioxide Level 28 mmol/L (21-32) Anion Gap 8 (6-14) Blood Urea Nitrogen 27 mg/dL (7-20) H Creatinine 0.9 mg/dL (0.6-1.0) Estimated GFR (Cockcroft-Gault) 59.4 BUN/Creatinine Ratio 30 (6-20) H Glucose Level 129 mg/dL (70-99) H Calcium Level 8.7 mg/dL (8.5-10.1) Total Bilirubin 0.3 mg/dL (0.2-1.0) Aspartate Amino Transferase (AST) 26 U/L (15-37) Alanine Aminotransferase (ALT) 31 U/L (14-59) Alkaline Phosphatase 97 U/L (46-116) Total Protein 7.2 g/dL (6.4-8.2) Albumin 3.6 g/dL (3.4-5.0) Albumin/Globulin Ratio 1.0 (1.0-1.7) Valproic Acid Level 51 mcg/mL (50-100) Valproic Acid Last Dose Date 05/13/2017 Valproic Acid Last Dose Time 1400 Current Medications: Meds: Current Medications Diphtheria/ Tetanus/Acell Pertussis (Boostrix) 0.5 ml ONCE ONCE VAX IM Last administered on 05/01/17at 22:36; Start 05/01/17 at 19:15; Stop 05/01/17 at 19:16 ; Status DC Lorazepam (Ativan) 2 mg 1X ONCE IM Last administered on 05/01/17at 19:45; Start 05/01/17 at 19:45; Stop 05/01/17 at 19:46; Status DC Diphenhydramine HCl (Benadryl) 50 mg 1X ONCE IM Last administered on at 19:45; Start 05/01/17 at 19:45; Stop 05/01/17 at 19:46; Status DC Diphenhydramine HCl (Benadryl) 50 mg STK-MED ONCE .ROUTE ; Start 05/01/17 at 19: 36; Stop 05/01/17 at 19:37; Status DC Lorazepam (Ativan) 1 mg STK-MED ONCE .ROUTE ; Start 05/01/17 at 19:38; Stop at 19:39; Status DC Midazolam HCl (Versed) 2 mg 1X ONCE IV ; Start 05/01/17 at 20:30; Stop at 20:31; Status DC Midazolam HCl (Versed) 5 mg STK-MED ONCE .ROUTE ; Start 05/01/17 at 20:25; Stop 05/01/17 at 20:26; Status DC Midazolam HCl (Versed) 5 mg 1X ONCE NS Last administered on 05/01/17at 20:40; Start 05/01/17 at 21:00; Stop 05/01/17 at 21:01; Status DC Ceftriaxone Sodium (Rocephin Im) 1 gm 1X ONCE IM Last administered on at 22:36; Start 05/01/17 at 21:15; Stop 05/01/17 at 21:16; Status DC Enoxaparin Sodium (Lovenox 60mg Syringe) 50 mg 1X ONCE SQ ; Start 05/01/17 at 21:45; Stop 05/01/17 at 21:45; Status DC Enoxaparin Sodium (Lovenox) 55 mg BID SQ ; Start 05/02/17 at 09:00; Stop at 09:00; Status DC Enoxaparin Sodium (Lovenox 60mg Syringe) 55 mg 1X ONCE SQ Last administered on 05/01/17at 22:35; Start 05/01/17 at 21:45; Stop 05/01/17 at 21:46; Status DC Iohexol (Omnipaque 300 Mg/ml) 75 ml 1X ONCE IV Last administered on 05/01/17at 22:11; Start 05/01/17 at 22:00; Stop 05/01/17 at 22:01; Status DC Midazolam HCl (Versed) 5 mg 1X ONCE IV ; Start 05/01/17 at 22:15; Stop at 22:18; Status DC Midazolam HCl (Versed) 1 mg 1X ONCE IV Last administered on 05/01/17at 22:30; Start 05/01/17 at 23:00; Stop 05/01/17 at 23:02; Status DC Cephalexin HCl (Keflex) 500 mg TID PO Last administered on 05/03/17 20:27; Start 05/02/17 at 09:00; Stop 05/03/17 at 22:41; Status DC Alprazolam (Xanax) 0.25 mg QID PO Last administered on 05/02/17 17:32; Start 05/02/17 at 09:00; Stop 05/02/17 at 19:27; Status DC Divalproex Sodium (Depakote Sprinkles) 125 mg BID92 PO Last administered on 05/11 14:05; Start 05/02/17 at 09:00; Stop 05/11/17 at 18:42; Status DC Divalproex Sodium (Depakote Sprinkles) 500 mg QHS PO Last administered on 19:41; Start 05/02/17 at 21:00; Stop 05/07/17 at 18:37; Status DC Lorazepam (Ativan) 0.5 mg PRN Q4HRS PRN PO ANXIETY / AGITATION Last administered on 05/14/17 19:11; Start 05/02/17 at 01:00 Lorazepam (Ativan Intensol) 0.5 mg PRN Q4HRS PRN PO ANXIETY / AGITATION Last administered on 05/13/17 15:34; Start 05/02/17 at 01:00 Olanzapine (ZyPREXA ZYDIS) 5 mg QHS PO Last administered on 05/07/17 20:07; Start 05/02/17 at 21:00; Stop 05/08/17 at 19:10; Status DC Sertraline HCl (Zoloft) 100 mg DAILY PO Last administered on 05/14/17 08:08; Start 05/02/17 at 09:00 Levofloxacin (Levaquin) 500 mg DAILY06 PO Last administered on 05/02/17 08:53 ; Start 05/02/17 at 07:30; Stop 05/02/17 at 10:36; Status DC Lactobacillus Rhamnosus (Culturelle) 1 cap BID PO Last administered on 19:09; Start 05/02/17 at 09:00 Levofloxacin (Levaquin) 250 mg DAILY06 PO Last administered on 05/06/17 07:45 ; Start 05/03/17 at 06:00; Stop 05/06/17 at 18:15; Status DC Alprazolam (Xanax) 0.25 mg TID PO Last administered on 05/06/17at 14:25; Start 05/02/17 at 21:00; Stop 05/06/17 at 20:59; Status DC Alprazolam (Xanax) 0.25 mg BID PO Last administered on 05/09/17at 19:50; Start at 21:00; Stop 05/10/17 at 08:59; Status DC Alprazolam (Xanax) 0.25 mg DAILY PO Last administered on 05/13/17at 08:21; Start 05/10/17 at 09:00; Stop 05/14/17 at 08:59; Status DC Mirtazapine (Remeron) 7.5 mg QHS PO Last administered on 05/02/17at 19:59; Start 05/02/17 at 21:00; Stop 05/03/17 at 19:31; Status DC Acetaminophen (Tylenol) 650 mg PRN Q6HRS PRN PO PAIN; Start 05/02/17 at 19:30 Aspirin (Children'S Aspirin) 81 mg DAILY PO Last administered on 05/14/17at 08:08 ; Start 05/03/17 at 09:00 Cyanocobalamin (Vitamin B-12) 250 mcg DAILY PO Last administered on 05/14/17at 08 :08; Start 05/03/17 at 09:00 Al Hydroxide/Mg Hydroxide (Mylanta Plus Xs) 15 ml PRN AFTMEALHC PRN PO DYSPEPSIA; Start 05/02/17 at 19:30 Multi-Ingredient Ointment (Analgesic [place]) 1 beck PRN QID PRN TP MUSCLE PAIN; Start 05/02/17 at 19:30 Phenytoin Sodium (Dilantin) 100 mg BID PO Last administered on 05/14/17 19:09; Start 05/02/17 at 21:00 Senna/Docusate Sodium (Senna Plus) 1 tab BID PO Last administered on 05/14/17 19:09; Start 05/02/17 at 21:00 Magnesium Hydroxide (Milk Of Magnesia) 2,400 mg PRN QHS PRN PO CONSTIPATION; Start 05/02/17 at 19:45 Potassium Chloride (Klor-Con) 20 meq DAILYWBKFT PO Last administered on at 08:08; Start 05/03/17 at 08:00 Neomycin/ Polymyxin/ Bacitracin (Triple Antibiotic Ointment) 1 pkt BID TP Last administered on 05/08/17at 08:51; Start 05/03/17 at 21:00; Stop 05/08/17 at 20:59; Status DC Mirtazapine (Remeron) 15 mg QHS PO Last administered on 05/14/17at 19:09; Start 05/03/17 at 21:00 Trazodone HCl (Desyrel) 50 mg PRN QHS PRN PO SLEEP Last administered on 01:56; Start 05/03/17 at 19:30 Alprazolam (Xanax) 0.25 mg 1X ONCE PO Last administered on 05/05/17at 09:36; Start 05/05/17 at 10:00; Stop 05/05/17 at 10:01; Status DC Buspirone HCl (Buspar) 5 mg TID@0900,1300,1700 PO Last administered on at 16:43; Start 05/06/17 at 09:00; Stop 05/06/17 at 18:23; Status DC Buspirone HCl (Buspar) 5 mg BID@1300,1700 PO Last administered on 05/09/17at 14: 08; Start 05/07/17 at 13:00; Stop 05/09/17 at 18:34; Status DC Buspirone HCl (Buspar) 10 mg DAILY PO Last administered on 05/08/17at 08:49; Start 05/07/17 at 09:00; Stop 05/08/17 at 19:10; Status DC Divalproex Sodium (Depakote Sprinkles) 750 mg QHS PO Last administered on 19:09; Start 05/07/17 at 21:00 Olanzapine (ZyPREXA ZYDIS) 2.5 mg QHS PO Last administered on 05/09/17 19:48; Start 05/08/17 at 21:00; Stop 05/09/17 at 21:00; Status DC Divalproex Sodium (Depakote Sprinkles) 250 mg BID92 PO Last administered on 05/14at 14:12; Start 05/12/17 at 09:00 Active Scripts Active Reported Klor-Con (Potassium Chloride) 20 Meq Packet 20 Meq PO DAILY Xanax (Alprazolam) 0.25 Mg Tablet 0.25 Mg PO QID Zoloft (Sertraline Hcl) 100 Mg Tablet 100 Mg PO DAILY Lorazepam Intensol (Lorazepam) 2 Mg/1 Ml Oral.conc 0.5 Mg PO PRN Q4HRS PRN Senna S Tablet (Sennosides/Docusate Sodium) 1 Each Tablet 1 Tab PO BID Depakote Sprinkle (Divalproex Sodium) 125 Mg Cap.sprink 500 Mg PO QHS Depakote Sprinkle (Divalproex Sodium) 125 Mg Cap.sprink 125 Mg PO BID92 Tylenol (Acetaminophen) 325 Mg Tablet 650 Mg PO PRN Q6HRS PRN Olanzapine Odt (Olanzapine) 5 Mg Tab.rapdis 5 Mg PO QHS Analgesic [place] (Methyl Salicylate/Menthol) 28 Gm Oint...g. 1 Beck TP PRN QID PRN Maalox Maximum Strength Susp (Mag Hydrox/Al Hydrox/Simeth) 355 Ml Oral.susp 15 Ml PO PRN AFTMEALHC PRN Milk Of Magnesia (Magnesium Hydroxide) 2,400 Mg/10 Ml Oral.susp 2,400 Mg PO PRN QHS PRN Vitamin B-12 (Cyanocobalamin (Vitamin B-12)) 1,000 Mcg Tablet 250 Mcg PO DAILY Lorazepam 0.5 Mg Tablet 0.5 Mg PO PRN Q4HRS PRN Dilantin (Phenytoin Sodium Extended) 100 Mg Capsule 100 Mg PO BID Aspirin 81 Mg Tab.chew 81 Mg PO DAILY I have reviewed the current psychotropics carefully including drug interactions. Risk benefit ratio favors no change other than as noted in my dictated progress note. Diagnosis: Problems: (1) Hypernatremia (2) Metabolic encephalopathy (3) Breakthrough seizure (4) Dementia with behavioral disturbance (5) Anxiety disorder (6) Dementia in Alzheimer's disease with delusions (7) Dementia in Alzheimer's disease with depression (8) Dementia, vascular, with delusions (9) Dementia, vascular, with depression (10) Impulse control disorder NAKIA KO MD May 14, 2017 20:04
--- NOTE | 2017-05-14 21:01 | PN ---
DATE: 05/13/2017 PSYCHIATRIC PROGRESS NOTE This is a late entry for 05/13/2017, covers elements not covered in my initial note of 05/13/2017. SUBJECTIVE: I met with the patient the evening of 05/13/2017. The patient did reasonably well previous evening, less agitated, but wandering, slept 6 hours. In the morning, she was calmer, wandering, after lunch more anxious, but redirectable. REVIEW OF SYSTEMS: No CV, , pulmonary, eye, ENT system symptoms on review. Reliability poor. MENTAL STATUS EXAM: Oriented to herself. Insight, judgment, recent and remote memory, attention, concentration, fund of knowledge poor, consistent with her diagnosis mentioned in my initial note. IMPRESSION: Major neurocognitive disorder, Alzheimer, vascular with depression, delusion, behavioral disturbance. Rest unchanged. PLAN: We have tapered her psychotropics and in fact, she is doing reasonably at least no worse than she was previously, perhaps a little better. We will keep everything unchanged and reassess. Depakote has not been stopped given her history of seizure disorder. MAN Leandro KO MD DR: [email or web address] JOB#: [id number] / [id number]
[2017-05-15 06:21] VITALS: BP 168/68
[2017-05-15] MEDS: CYANOCOBALAMIN (VITAMIN B-12) 250 MCG TABLET PO SCH (08:37)
[2017-05-15] MEDS: LACTOBACILLUS RHAMNOSUS GG 1 CAPSULE. PO SCH ×2 (08:37→19:53)
[2017-05-15] MEDS: ASPIRIN 81 MG TAB.CHEW PO SCH (08:37)
[2017-05-15] MEDS: POTASSIUM CHLORIDE 20 MEQ TABLET.ER. PO SCH (08:37)
[2017-05-15] MEDS: PHENYTOIN SODIUM EXTENDED 100 MG CAPSULE PO SCH ×2 (08:37→19:54)
[2017-05-15] MEDS: SERTRALINE 100 MG TABLET. PO SCH (08:37)
[2017-05-15] MEDS: SENNOSIDES/DOCUSATE 8.6/50MG TABLET. PO SCH ×2 (08:38→19:54)
[2017-05-15] MEDS: DIVALPROEX 125 MG CAP.SPRINK PO SCH ×3 (08:38→19:53)
[2017-05-15] MEDS: LORazepam 0.5 MG TABLET PO PRN (11:28)
[2017-05-15] MEDS: busPIRone 5 MG TABLET. PO SCH (14:10)
[2017-05-15 16:24] VITALS: BP 123/67
[2017-05-15] MEDS: MIRTAZAPINE 15 MG TABLET PO SCH (19:54)
--- NOTE | 2017-05-15 20:09 | PDOC ---
Exam Note: Dane Note: Please also refer to the separate dictated note~for this date of service dictated separately.~Patient seen individually. Discussed the patient with Nursing staff reviewed the chart.~Reviewed interim history and current functioning. Reviewed vital signs,~Labs/ Radiology~and current medications noted below. Continue current treatment with the changes noted in the dictated addendum note Assessment: Vital Signs: Vital Signs Date Time Temp Pulse Resp B/P (MAP) Pulse Ox O2 Delivery O2 Flow Rate FiO2 05/15/17 16:24 97.1 61 18 123/67 (85) 95 05/10/17 16:46 Room Air I&O Intake and Output 05/15/17 07:00 Intake Total 820 ml Balance 820 ml Intake Oral 820 ml # Voids 1 Current Medications: Meds: Current Medications Diphtheria/ Tetanus/Acell Pertussis (Boostrix) 0.5 ml ONCE ONCE VAX IM Last administered on 05/01/17at 22:36; Start 05/01/17 at 19:15; Stop 05/01/17 at 19:16 ; Status DC Lorazepam (Ativan) 2 mg 1X ONCE IM Last administered on 05/01/17at 19:45; Start 05/01/17 at 19:45; Stop 05/01/17 at 19:46; Status DC Diphenhydramine HCl (Benadryl) 50 mg 1X ONCE IM Last administered on at 19:45; Start 05/01/17 at 19:45; Stop 05/01/17 at 19:46; Status DC Diphenhydramine HCl (Benadryl) 50 mg STK-MED ONCE .ROUTE ; Start 05/01/17 at 19: 36; Stop 05/01/17 at 19:37; Status DC Lorazepam (Ativan) 1 mg STK-MED ONCE .ROUTE ; Start 05/01/17 at 19:38; Stop at 19:39; Status DC Midazolam HCl (Versed) 2 mg 1X ONCE IV ; Start 05/01/17 at 20:30; Stop at 20:31; Status DC Midazolam HCl (Versed) 5 mg STK-MED ONCE .ROUTE ; Start 05/01/17 at 20:25; Stop 05/01/17 at 20:26; Status DC Midazolam HCl (Versed) 5 mg 1X ONCE NS Last administered on 05/01/17at 20:40; Start 05/01/17 at 21:00; Stop 05/01/17 at 21:01; Status DC Ceftriaxone Sodium (Rocephin Im) 1 gm 1X ONCE IM Last administered on at 22:36; Start 05/01/17 at 21:15; Stop 05/01/17 at 21:16; Status DC Enoxaparin Sodium (Lovenox 60mg Syringe) 50 mg 1X ONCE SQ ; Start 05/01/17 at 21:45; Stop 05/01/17 at 21:45; Status DC Enoxaparin Sodium (Lovenox) 55 mg BID SQ ; Start 05/02/17 at 09:00; Stop at 09:00; Status DC Enoxaparin Sodium (Lovenox 60mg Syringe) 55 mg 1X ONCE SQ Last administered on 05/01/17at 22:35; Start 05/01/17 at 21:45; Stop 05/01/17 at 21:46; Status DC Iohexol (Omnipaque 300 Mg/ml) 75 ml 1X ONCE IV Last administered on 05/01/17at 22:11; Start 05/01/17 at 22:00; Stop 05/01/17 at 22:01; Status DC Midazolam HCl (Versed) 5 mg 1X ONCE IV ; Start 05/01/17 at 22:15; Stop at 22:18; Status DC Midazolam HCl (Versed) 1 mg 1X ONCE IV Last administered on 05/01/17at 22:30; Start 05/01/17 at 23:00; Stop 05/01/17 at 23:02; Status DC Cephalexin HCl (Keflex) 500 mg TID PO Last administered on 05/03/17at 20:27; Start 05/02/17 at 09:00; Stop 05/03/17 at 22:41; Status DC Alprazolam (Xanax) 0.25 mg QID PO Last administered on 05/02/17at 17:32; Start 05/02/17 at 09:00; Stop 05/02/17 at 19:27; Status DC Divalproex Sodium (Depakote Sprinkles) 125 mg BID92 PO Last administered on 05/11at 14:05; Start 05/02/17 at 09:00; Stop 05/11/17 at 18:42; Status DC Divalproex Sodium (Depakote Sprinkles) 500 mg QHS PO Last administered on 19:41; Start 05/02/17 at 21:00; Stop 05/07/17 at 18:37; Status DC Lorazepam (Ativan) 0.5 mg PRN Q4HRS PRN PO ANXIETY / AGITATION Last administered on 05/15/17 11:28; Start 05/02/17 at 01:00 Lorazepam (Ativan Intensol) 0.5 mg PRN Q4HRS PRN PO ANXIETY / AGITATION Last administered on 05/13/17 15:34; Start 05/02/17 at 01:00 Olanzapine (ZyPREXA ZYDIS) 5 mg QHS PO Last administered on 05/07/17 20:07; Start 05/02/17 at 21:00; Stop 05/08/17 at 19:10; Status DC Sertraline HCl (Zoloft) 100 mg DAILY PO Last administered on 05/15/17 08:37; Start 05/02/17 at 09:00 Levofloxacin (Levaquin) 500 mg DAILY06 PO Last administered on 05/02/17 08:53 ; Start 05/02/17 at 07:30; Stop 05/02/17 at 10:36; Status DC Lactobacillus Rhamnosus (Culturelle) 1 cap BID PO Last administered on 19:53; Start 05/02/17 at 09:00 Levofloxacin (Levaquin) 250 mg DAILY06 PO Last administered on 05/06/17 07:45 ; Start 05/03/17 at 06:00; Stop 05/06/17 at 18:15; Status DC Alprazolam (Xanax) 0.25 mg TID PO Last administered on 05/06/17 14:25; Start 05/02/17 at 21:00; Stop 05/06/17 at 20:59; Status DC Alprazolam (Xanax) 0.25 mg BID PO Last administered on 05/09/17 19:50; Start at 21:00; Stop 05/10/17 at 08:59; Status DC Alprazolam (Xanax) 0.25 mg DAILY PO Last administered on 05/13/17 08:21; Start 05/10/17 at 09:00; Stop 05/14/17 at 08:59; Status DC Mirtazapine (Remeron) 7.5 mg QHS PO Last administered on 05/02/17 19:59; Start 05/02/17 at 21:00; Stop 05/03/17 at 19:31; Status DC Acetaminophen (Tylenol) 650 mg PRN Q6HRS PRN PO PAIN; Start 05/02/17 at 19:30 Aspirin (Children'S Aspirin) 81 mg DAILY PO Last administered on 05/15/17 08:37 ; Start 05/03/17 at 09:00 Cyanocobalamin (Vitamin B-12) 250 mcg DAILY PO Last administered on 05/15/17 08 :37; Start 05/03/17 at 09:00 Al Hydroxide/Mg Hydroxide (Mylanta Plus Xs) 15 ml PRN AFTMEALHC PRN PO DYSPEPSIA; Start 05/02/17 at 19:30 Multi-Ingredient Ointment (Analgesic [place]) 1 beck PRN QID PRN TP MUSCLE PAIN; Start 05/02/17 at 19:30 Phenytoin Sodium (Dilantin) 100 mg BID PO Last administered on 05/15/17 19:54; Start 05/02/17 at 21:00 Senna/Docusate Sodium (Senna Plus) 1 tab BID PO Last administered on 05/15/17 19:54; Start 05/02/17 at 21:00 Magnesium Hydroxide (Milk Of Magnesia) 2,400 mg PRN QHS PRN PO CONSTIPATION; Start 05/02/17 at 19:45 Potassium Chloride (Klor-Con) 20 meq DAILYWBKFT PO Last administered on 08:37; Start 05/03/17 at 08:00 Neomycin/ Polymyxin/ Bacitracin (Triple Antibiotic Ointment) 1 pkt BID TP Last administered on 05/08/17at 08:51; Start 05/03/17 at 21:00; Stop 05/08/17 at 20:59; Status DC Mirtazapine (Remeron) 15 mg QHS PO Last administered on 05/15/17 19:54; Start 05/03/17 at 21:00 Trazodone HCl (Desyrel) 50 mg PRN QHS PRN PO SLEEP Last administered on at 01:56; Start 05/03/17 at 19:30 Alprazolam (Xanax) 0.25 mg 1X ONCE PO Last administered on 05/05/17at 09:36; Start 05/05/17 at 10:00; Stop 05/05/17 at 10:01; Status DC Buspirone HCl (Buspar) 5 mg TID@0900,1300,1700 PO Last administered on at 16:43; Start 05/06/17 at 09:00; Stop 05/06/17 at 18:23; Status DC Buspirone HCl (Buspar) 5 mg BID@1300,1700 PO Last administered on 05/09/17at 14: 08; Start 05/07/17 at 13:00; Stop 05/09/17 at 18:34; Status DC Buspirone HCl (Buspar) 10 mg DAILY PO Last administered on 05/08/17at 08:49; Start 05/07/17 at 09:00; Stop 05/08/17 at 19:10; Status DC Divalproex Sodium (Depakote Sprinkles) 750 mg QHS PO Last administered on at 19:53; Start 05/07/17 at 21:00 Olanzapine (ZyPREXA ZYDIS) 2.5 mg QHS PO Last administered on 05/09/17 19:48; Start 05/08/17 at 21:00; Stop 05/09/17 at 21:00; Status DC Divalproex Sodium (Depakote Sprinkles) 250 mg BID92 PO Last administered on 05/15 14:10; Start 05/12/17 at 09:00 Buspirone HCl (Buspar) 5 mg BID@0900,1300 PO Last administered on 05/15/17at 14: 10; Start 05/15/17 at 13:00 Active Scripts Active Reported Klor-Con (Potassium Chloride) 20 Meq Packet 20 Meq PO DAILY Xanax (Alprazolam) 0.25 Mg Tablet 0.25 Mg PO QID Zoloft (Sertraline Hcl) 100 Mg Tablet 100 Mg PO DAILY Lorazepam Intensol (Lorazepam) 2 Mg/1 Ml Oral.conc 0.5 Mg PO PRN Q4HRS PRN Senna S Tablet (Sennosides/Docusate Sodium) 1 Each Tablet 1 Tab PO BID Depakote Sprinkle (Divalproex Sodium) 125 Mg Cap.sprink 500 Mg PO QHS Depakote Sprinkle (Divalproex Sodium) 125 Mg Cap.sprink 125 Mg PO BID92 Tylenol (Acetaminophen) 325 Mg Tablet 650 Mg PO PRN Q6HRS PRN Olanzapine Odt (Olanzapine) 5 Mg Tab.rapdis 5 Mg PO QHS Analgesic [place] (Methyl Salicylate/Menthol) 28 Gm Oint...g. 1 Beck TP PRN QID PRN Maalox Maximum Strength Susp (Mag Hydrox/Al Hydrox/Simeth) 355 Ml Oral.susp 15 Ml PO PRN AFTMEALHC PRN Milk Of Magnesia (Magnesium Hydroxide) 2,400 Mg/10 Ml Oral.susp 2,400 Mg PO PRN QHS PRN Vitamin B-12 (Cyanocobalamin (Vitamin B-12)) 1,000 Mcg Tablet 250 Mcg PO DAILY Lorazepam 0.5 Mg Tablet 0.5 Mg PO PRN Q4HRS PRN Dilantin (Phenytoin Sodium Extended) 100 Mg Capsule 100 Mg PO BID Aspirin 81 Mg Tab.chew 81 Mg PO DAILY I have reviewed the current psychotropics carefully including drug interactions. Risk benefit ratio favors no change other than as noted in my dictated progress note. Diagnosis: Problems: (1) Metabolic encephalopathy (2) Breakthrough seizure (3) Dementia with behavioral disturbance (4) Anxiety disorder (5) Dementia in Alzheimer's disease with delusions (6) Dementia in Alzheimer's disease with depression (7) Dementia, vascular, with delusions (8) Dementia, vascular, with depression (9) Impulse control disorder NAKIA KO MD May 15, 2017 20:09
[2017-05-16] MEDS: LORazepam INTENSOL 2 MG/ML BOTTLE PO PRN (02:31)
[2017-05-16 06:24] VITALS: BP 151/73
[2017-05-16] MEDS: LACTOBACILLUS RHAMNOSUS GG 1 CAPSULE. PO SCH ×2 (07:54→19:49)
[2017-05-16] MEDS: PHENYTOIN SODIUM EXTENDED 100 MG CAPSULE PO SCH ×2 (07:54→19:50)
[2017-05-16] MEDS: CYANOCOBALAMIN (VITAMIN B-12) 250 MCG TABLET PO SCH (07:54)
[2017-05-16] MEDS: ASPIRIN 81 MG TAB.CHEW PO SCH (07:54)
[2017-05-16] MEDS: busPIRone 5 MG TABLET. PO SCH ×2 (07:54→13:01)
[2017-05-16] MEDS: SENNOSIDES/DOCUSATE 8.6/50MG TABLET. PO SCH ×2 (07:54→19:50)
[2017-05-16] MEDS: SERTRALINE 100 MG TABLET. PO SCH (07:54)
[2017-05-16] MEDS: POTASSIUM CHLORIDE 20 MEQ TABLET.ER. PO SCH (07:54)
[2017-05-16] MEDS: DIVALPROEX 125 MG CAP.SPRINK PO SCH ×3 (07:55→19:49)
[2017-05-16 16:39] VITALS: BP 129/73
[2017-05-16] MEDS: MIRTAZAPINE 15 MG TABLET PO SCH (19:50)
--- NOTE | 2017-05-16 20:05 | PDOC ---
Exam Note: Dane Note: Please also refer to the separate dictated note~for this date of service dictated separately.~Patient seen individually. Discussed the patient with Nursing staff reviewed the chart.~Reviewed interim history and current functioning. Reviewed vital signs,~Labs/ Radiology~and current medications noted below. Continue current treatment with the changes noted in the dictated addendum note Assessment: Vital Signs: Vital Signs Date Time Temp Pulse Resp B/P (MAP) Pulse Ox O2 Delivery O2 Flow Rate FiO2 05/16/17 16:39 98.6 72 22 129/73 (91) 93 05/10/17 16:46 Room Air I&O Intake and Output 05/16/17 07:00 Intake Total 1220 ml Balance 1220 ml Intake Oral 1220 ml # Voids 1 Current Medications: Meds: Current Medications Diphtheria/ Tetanus/Acell Pertussis (Boostrix) 0.5 ml ONCE ONCE VAX IM Last administered on 05/01/17at 22:36; Start 05/01/17 at 19:15; Stop 05/01/17 at 19:16 ; Status DC Lorazepam (Ativan) 2 mg 1X ONCE IM Last administered on 05/01/17at 19:45; Start 05/01/17 at 19:45; Stop 05/01/17 at 19:46; Status DC Diphenhydramine HCl (Benadryl) 50 mg 1X ONCE IM Last administered on at 19:45; Start 05/01/17 at 19:45; Stop 05/01/17 at 19:46; Status DC Diphenhydramine HCl (Benadryl) 50 mg STK-MED ONCE .ROUTE ; Start 05/01/17 at 19: 36; Stop 05/01/17 at 19:37; Status DC Lorazepam (Ativan) 1 mg STK-MED ONCE .ROUTE ; Start 05/01/17 at 19:38; Stop at 19:39; Status DC Midazolam HCl (Versed) 2 mg 1X ONCE IV ; Start 05/01/17 at 20:30; Stop at 20:31; Status DC Midazolam HCl (Versed) 5 mg STK-MED ONCE .ROUTE ; Start 05/01/17 at 20:25; Stop 05/01/17 at 20:26; Status DC Midazolam HCl (Versed) 5 mg 1X ONCE NS Last administered on 05/01/17at 20:40; Start 05/01/17 at 21:00; Stop 05/01/17 at 21:01; Status DC Ceftriaxone Sodium (Rocephin Im) 1 gm 1X ONCE IM Last administered on at 22:36; Start 05/01/17 at 21:15; Stop 05/01/17 at 21:16; Status DC Enoxaparin Sodium (Lovenox 60mg Syringe) 50 mg 1X ONCE SQ ; Start 05/01/17 at 21:45; Stop 05/01/17 at 21:45; Status DC Enoxaparin Sodium (Lovenox) 55 mg BID SQ ; Start 05/02/17 at 09:00; Stop at 09:00; Status DC Enoxaparin Sodium (Lovenox 60mg Syringe) 55 mg 1X ONCE SQ Last administered on 05/01/17at 22:35; Start 05/01/17 at 21:45; Stop 05/01/17 at 21:46; Status DC Iohexol (Omnipaque 300 Mg/ml) 75 ml 1X ONCE IV Last administered on 05/01/17at 22:11; Start 05/01/17 at 22:00; Stop 05/01/17 at 22:01; Status DC Midazolam HCl (Versed) 5 mg 1X ONCE IV ; Start 05/01/17 at 22:15; Stop at 22:18; Status DC Midazolam HCl (Versed) 1 mg 1X ONCE IV Last administered on 05/01/17at 22:30; Start 05/01/17 at 23:00; Stop 05/01/17 at 23:02; Status DC Cephalexin HCl (Keflex) 500 mg TID PO Last administered on 05/03/17at 20:27; Start 05/02/17 at 09:00; Stop 05/03/17 at 22:41; Status DC Alprazolam (Xanax) 0.25 mg QID PO Last administered on 05/02/17at 17:32; Start 05/02/17 at 09:00; Stop 05/02/17 at 19:27; Status DC Divalproex Sodium (Depakote Sprinkles) 125 mg BID92 PO Last administered on 05/11at 14:05; Start 05/02/17 at 09:00; Stop 05/11/17 at 18:42; Status DC Divalproex Sodium (Depakote Sprinkles) 500 mg QHS PO Last administered on 19:41; Start 05/02/17 at 21:00; Stop 05/07/17 at 18:37; Status DC Lorazepam (Ativan) 0.5 mg PRN Q4HRS PRN PO ANXIETY / AGITATION Last administered on 05/15/17at 11:28; Start 05/02/17 at 01:00 Lorazepam (Ativan Intensol) 0.5 mg PRN Q4HRS PRN PO ANXIETY / AGITATION Last administered on 05/16/17 02:31; Start 05/02/17 at 01:00 Olanzapine (ZyPREXA ZYDIS) 5 mg QHS PO Last administered on 05/07/17 20:07; Start 05/02/17 at 21:00; Stop 05/08/17 at 19:10; Status DC Sertraline HCl (Zoloft) 100 mg DAILY PO Last administered on 05/16/17 07:54; Start 05/02/17 at 09:00 Levofloxacin (Levaquin) 500 mg DAILY06 PO Last administered on 05/02/17at 08:53 ; Start 05/02/17 at 07:30; Stop 05/02/17 at 10:36; Status DC Lactobacillus Rhamnosus (Culturelle) 1 cap BID PO Last administered on at 19:49; Start 05/02/17 at 09:00 Levofloxacin (Levaquin) 250 mg DAILY06 PO Last administered on 05/06/17at 07:45 ; Start 05/03/17 at 06:00; Stop 05/06/17 at 18:15; Status DC Alprazolam (Xanax) 0.25 mg TID PO Last administered on 05/06/17 14:25; Start 05/02/17 at 21:00; Stop 05/06/17 at 20:59; Status DC Alprazolam (Xanax) 0.25 mg BID PO Last administered on 05/09/17 19:50; Start at 21:00; Stop 05/10/17 at 08:59; Status DC Alprazolam (Xanax) 0.25 mg DAILY PO Last administered on 05/13/17 08:21; Start 05/10/17 at 09:00; Stop 05/14/17 at 08:59; Status DC Mirtazapine (Remeron) 7.5 mg QHS PO Last administered on 05/02/17 19:59; Start 05/02/17 at 21:00; Stop 05/03/17 at 19:31; Status DC Acetaminophen (Tylenol) 650 mg PRN Q6HRS PRN PO PAIN; Start 05/02/17 at 19:30 Aspirin (Children'S Aspirin) 81 mg DAILY PO Last administered on 05/16/17 07:54 ; Start 05/03/17 at 09:00 Cyanocobalamin (Vitamin B-12) 250 mcg DAILY PO Last administered on 05/16/17 07 :54; Start 05/03/17 at 09:00 Al Hydroxide/Mg Hydroxide (Mylanta Plus Xs) 15 ml PRN AFTMEALHC PRN PO DYSPEPSIA; Start 05/02/17 at 19:30 Multi-Ingredient Ointment (Analgesic [place]) 1 beck PRN QID PRN TP MUSCLE PAIN; Start 05/02/17 at 19:30 Phenytoin Sodium (Dilantin) 100 mg BID PO Last administered on 05/16/17 19:50; Start 05/02/17 at 21:00 Senna/Docusate Sodium (Senna Plus) 1 tab BID PO Last administered on 05/16/17 19:50; Start 05/02/17 at 21:00 Magnesium Hydroxide (Milk Of Magnesia) 2,400 mg PRN QHS PRN PO CONSTIPATION; Start 05/02/17 at 19:45 Potassium Chloride (Klor-Con) 20 meq DAILYWBKFT PO Last administered on at 07:54; Start 05/03/17 at 08:00 Neomycin/ Polymyxin/ Bacitracin (Triple Antibiotic Ointment) 1 pkt BID TP Last administered on 05/08/17at 08:51; Start 05/03/17 at 21:00; Stop 05/08/17 at 20:59; Status DC Mirtazapine (Remeron) 15 mg QHS PO Last administered on 05/16/17at 19:50; Start 05/03/17 at 21:00 Trazodone HCl (Desyrel) 50 mg PRN QHS PRN PO SLEEP Last administered on at 01:56; Start 05/03/17 at 19:30; Stop 05/16/17 at 18:59; Status DC Alprazolam (Xanax) 0.25 mg 1X ONCE PO Last administered on 05/05/17at 09:36; Start 05/05/17 at 10:00; Stop 05/05/17 at 10:01; Status DC Buspirone HCl (Buspar) 5 mg TID@0900,1300,1700 PO Last administered on at 16:43; Start 05/06/17 at 09:00; Stop 05/06/17 at 18:23; Status DC Buspirone HCl (Buspar) 5 mg BID@1300,1700 PO Last administered on 05/09/17at 14: 08; Start 05/07/17 at 13:00; Stop 05/09/17 at 18:34; Status DC Buspirone HCl (Buspar) 10 mg DAILY PO Last administered on 05/08/17at 08:49; Start 05/07/17 at 09:00; Stop 05/08/17 at 19:10; Status DC Divalproex Sodium (Depakote Sprinkles) 750 mg QHS PO Last administered on at 19:49; Start 05/07/17 at 21:00 Olanzapine (ZyPREXA ZYDIS) 2.5 mg QHS PO Last administered on 05/09/17at 19:48; Start 05/08/17 at 21:00; Stop 05/09/17 at 21:00; Status DC Divalproex Sodium (Depakote Sprinkles) 250 mg BID92 PO Last administered on 05/16at 13:01; Start 05/12/17 at 09:00 Buspirone HCl (Buspar) 5 mg BID@0900,1300 PO Last administered on 05/16/17at 13: 01; Start 05/15/17 at 13:00 Trazodone HCl (Desyrel) 50 mg PRN QHS PRN PO INSOMNIA, MAY REPEAT X1; Start 05/16/17 at 19:00 Active Scripts Active Reported Klor-Con (Potassium Chloride) 20 Meq Packet 20 Meq PO DAILY Xanax (Alprazolam) 0.25 Mg Tablet 0.25 Mg PO QID Zoloft (Sertraline Hcl) 100 Mg Tablet 100 Mg PO DAILY Lorazepam Intensol (Lorazepam) 2 Mg/1 Ml Oral.conc 0.5 Mg PO PRN Q4HRS PRN Senna S Tablet (Sennosides/Docusate Sodium) 1 Each Tablet 1 Tab PO BID Depakote Sprinkle (Divalproex Sodium) 125 Mg Cap.sprink 500 Mg PO QHS Depakote Sprinkle (Divalproex Sodium) 125 Mg Cap.sprink 125 Mg PO BID92 Tylenol (Acetaminophen) 325 Mg Tablet 650 Mg PO PRN Q6HRS PRN Olanzapine Odt (Olanzapine) 5 Mg Tab.rapdis 5 Mg PO QHS Analgesic [place] (Methyl Salicylate/Menthol) 28 Gm Oint...g. 1 Beck TP PRN QID PRN Maalox Maximum Strength Susp (Mag Hydrox/Al Hydrox/Simeth) 355 Ml Oral.susp 15 Ml PO PRN AFTMEALHC PRN Milk Of Magnesia (Magnesium Hydroxide) 2,400 Mg/10 Ml Oral.susp 2,400 Mg PO PRN QHS PRN Vitamin B-12 (Cyanocobalamin (Vitamin B-12)) 1,000 Mcg Tablet 250 Mcg PO DAILY Lorazepam 0.5 Mg Tablet 0.5 Mg PO PRN Q4HRS PRN Dilantin (Phenytoin Sodium Extended) 100 Mg Capsule 100 Mg PO BID Aspirin 81 Mg Tab.chew 81 Mg PO DAILY I have reviewed the current psychotropics carefully including drug interactions. Risk benefit ratio favors no change other than as noted in my dictated progress note. Diagnosis: Problems: (1) Hypernatremia (2) Metabolic encephalopathy (3) Breakthrough seizure (4) Dementia with behavioral disturbance (5) Anxiety disorder (6) Dementia in Alzheimer's disease with delusions (7) Dementia in Alzheimer's disease with depression (8) Dementia, vascular, with delusions (9) Dementia, vascular, with depression (10) Impulse control disorder NAKIA KO MD May 16, 2017 20:05
--- NOTE | 2017-05-16 21:26 | PN ---
DATE: 05/14/2017 PSYCHOTIC PROGRESS NOTE This is a late entry 05/14/2017 covers elements not covered in my initial note 05/14/2017. SUBJECTIVE: I met with the patient evening of 05/14/2017. The patient has been anxious, restless, received Ativan at 9 a.m. Xanax has been discontinued. We tapered her Seroquel and BuSpar, we will see how she does overnight before deciding what to reinstitute. The above discontinuation was done after discussing regarding a drug holiday with her outpatient psychiatrist, Dr. Camacho. REVIEW OF SYSTEMS: No CV, , pulmonary, eye, ENT system symptoms on review. Reliability poor. MENTAL STATUS EXAM: Oriented to herself. Insight, judgment, recent and remote memory, attention, concentration, fund of knowledge poor, consistent with her diagnosis mentioned in my initial note. IMPRESSION: Major neurocognitive disorder, Alzheimer, vascular with depression, delusion, behavioral disturbance. Rest unchanged. PLAN: Continue current psychotropics, reassess restarting BuSpar on 05/15/2017 depending on her progress. MAN Leandro KO MD DR: [email or web address]/luz JOB#: [id number] / [id number]
--- NOTE | 2017-05-16 23:40 | PN ---
DATE: 05/15/2017 This is a late entry, 05/15/2017, covers the elements not covered in my initial note, 05/15/2017. SUBJECTIVE: I met with the patient evening of 05/15/2017, staffed at a treatment team meeting with the entire team morning of 05/15/2017 and daughterAgata attended the conference, sleeping about 5 to 6 hours. We discussed at length the treatment team meeting with the daughter about reasons for stopping her BuSpar and Seroquel. Daughter is convinced, the anxiety is the major part of the patient's agitation, aggression, wanting her back on the BuSpar, which we will reinitiate at 5 mg twice a day, takes her meds in pudding, wanders the hallways, was quite anxious, restless previous evening in the day room, received Ativan in the evening, pacing. REVIEW OF SYSTEMS: No CV, , pulmonary, eye, ENT system symptoms on review. Reliability poor. MENTAL STATUS EXAM: Oriented to herself. Insight, judgment, recent and remote memory, attention, concentration, fund of knowledge poor, consistent with her diagnosis mentioned in my initial note. IMPRESSION: Major neurocognitive disorder, Alzheimer, vascular with delusion, depression, behavioral disturbance; anxiety disorder, unspecified. PLAN: Continue current psychotropic, start the BuSpar. MAN Leandro KO MD DR: [email or web address] JOB#: [id number] / [id number]
[2017-05-17 07:20] VITALS: BP 128/53
[2017-05-17] MEDS: DIVALPROEX 125 MG CAP.SPRINK PO SCH ×3 (07:50→20:34)
[2017-05-17] MEDS: ASPIRIN 81 MG TAB.CHEW PO SCH (07:50)
[2017-05-17] MEDS: SERTRALINE 100 MG TABLET. PO SCH (07:50)
[2017-05-17] MEDS: LACTOBACILLUS RHAMNOSUS GG 1 CAPSULE. PO SCH ×2 (07:50→20:34)
[2017-05-17] MEDS: SENNOSIDES/DOCUSATE 8.6/50MG TABLET. PO SCH ×2 (07:50→20:34)
[2017-05-17] MEDS: busPIRone 5 MG TABLET. PO SCH ×2 (07:50→13:00)
[2017-05-17] MEDS: PHENYTOIN SODIUM EXTENDED 100 MG CAPSULE PO SCH ×2 (07:50→20:33)
[2017-05-17] MEDS: CYANOCOBALAMIN (VITAMIN B-12) 250 MCG TABLET PO SCH (07:51)
[2017-05-17] MEDS: POTASSIUM CHLORIDE 20 MEQ TABLET.ER. PO SCH (07:51)
[2017-05-17 16:33] VITALS: BP 111/52
[2017-05-17] MEDS: MIRTAZAPINE 15 MG TABLET PO SCH (20:34)
[2017-05-17] MEDS: traZODone 50 MG TABLET. PO PRN (20:37)
--- NOTE | 2017-05-17 21:33 | PDOC ---
Exam Note: Dane Note: Please also refer to the separate dictated note~for this date of service dictated separately.~Patient seen individually. Discussed the patient with Nursing staff reviewed the chart.~Reviewed interim history and current functioning. Reviewed vital signs,~Labs/ Radiology~and current medications noted below. Continue current treatment with the changes noted in the dictated addendum note Assessment: Vital Signs: Vital Signs Date Time Temp Pulse Resp B/P (MAP) Pulse Ox O2 Delivery O2 Flow Rate FiO2 05/17/17 16:33 97.2 75 18 111/52 (71) 97 Room Air I&O Intake and Output 05/17/17 07:00 Intake Total 848 ml Balance 848 ml Intake Oral 848 ml # Voids 1 Current Medications: Meds: Current Medications Diphtheria/ Tetanus/Acell Pertussis (Boostrix) 0.5 ml ONCE ONCE VAX IM Last administered on 05/01/17at 22:36; Start 05/01/17 at 19:15; Stop 05/01/17 at 19:16 ; Status DC Lorazepam (Ativan) 2 mg 1X ONCE IM Last administered on 05/01/17at 19:45; Start 05/01/17 at 19:45; Stop 05/01/17 at 19:46; Status DC Diphenhydramine HCl (Benadryl) 50 mg 1X ONCE IM Last administered on at 19:45; Start 05/01/17 at 19:45; Stop 05/01/17 at 19:46; Status DC Diphenhydramine HCl (Benadryl) 50 mg STK-MED ONCE .ROUTE ; Start 05/01/17 at 19: 36; Stop 05/01/17 at 19:37; Status DC Lorazepam (Ativan) 1 mg STK-MED ONCE .ROUTE ; Start 05/01/17 at 19:38; Stop at 19:39; Status DC Midazolam HCl (Versed) 2 mg 1X ONCE IV ; Start 05/01/17 at 20:30; Stop at 20:31; Status DC Midazolam HCl (Versed) 5 mg STK-MED ONCE .ROUTE ; Start 05/01/17 at 20:25; Stop 05/01/17 at 20:26; Status DC Midazolam HCl (Versed) 5 mg 1X ONCE NS Last administered on 05/01/17at 20:40; Start 05/01/17 at 21:00; Stop 05/01/17 at 21:01; Status DC Ceftriaxone Sodium (Rocephin Im) 1 gm 1X ONCE IM Last administered on at 22:36; Start 05/01/17 at 21:15; Stop 05/01/17 at 21:16; Status DC Enoxaparin Sodium (Lovenox 60mg Syringe) 50 mg 1X ONCE SQ ; Start 05/01/17 at 21:45; Stop 05/01/17 at 21:45; Status DC Enoxaparin Sodium (Lovenox) 55 mg BID SQ ; Start 05/02/17 at 09:00; Stop at 09:00; Status DC Enoxaparin Sodium (Lovenox 60mg Syringe) 55 mg 1X ONCE SQ Last administered on 05/01/17at 22:35; Start 05/01/17 at 21:45; Stop 05/01/17 at 21:46; Status DC Iohexol (Omnipaque 300 Mg/ml) 75 ml 1X ONCE IV Last administered on 05/01/17at 22:11; Start 05/01/17 at 22:00; Stop 05/01/17 at 22:01; Status DC Midazolam HCl (Versed) 5 mg 1X ONCE IV ; Start 05/01/17 at 22:15; Stop at 22:18; Status DC Midazolam HCl (Versed) 1 mg 1X ONCE IV Last administered on 05/01/17at 22:30; Start 05/01/17 at 23:00; Stop 05/01/17 at 23:02; Status DC Cephalexin HCl (Keflex) 500 mg TID PO Last administered on 05/03/17at 20:27; Start 05/02/17 at 09:00; Stop 05/03/17 at 22:41; Status DC Alprazolam (Xanax) 0.25 mg QID PO Last administered on 05/02/17at 17:32; Start 05/02/17 at 09:00; Stop 05/02/17 at 19:27; Status DC Divalproex Sodium (Depakote Sprinkles) 125 mg BID92 PO Last administered on 05/11at 14:05; Start 05/02/17 at 09:00; Stop 05/11/17 at 18:42; Status DC Divalproex Sodium (Depakote Sprinkles) 500 mg QHS PO Last administered on at 19:41; Start 05/02/17 at 21:00; Stop 05/07/17 at 18:37; Status DC Lorazepam (Ativan) 0.5 mg PRN Q4HRS PRN PO ANXIETY / AGITATION Last administered on 05/15/17at 11:28; Start 05/02/17 at 01:00 Lorazepam (Ativan Intensol) 0.5 mg PRN Q4HRS PRN PO ANXIETY / AGITATION Last administered on 05/16/17 02:31; Start 05/02/17 at 01:00 Olanzapine (ZyPREXA ZYDIS) 5 mg QHS PO Last administered on 05/07/17at 20:07; Start 05/02/17 at 21:00; Stop 05/08/17 at 19:10; Status DC Sertraline HCl (Zoloft) 100 mg DAILY PO Last administered on 05/17/17 07:50; Start 05/02/17 at 09:00 Levofloxacin (Levaquin) 500 mg DAILY06 PO Last administered on 05/02/17at 08:53 ; Start 05/02/17 at 07:30; Stop 05/02/17 at 10:36; Status DC Lactobacillus Rhamnosus (Culturelle) 1 cap BID PO Last administered on at 20:34; Start 05/02/17 at 09:00 Levofloxacin (Levaquin) 250 mg DAILY06 PO Last administered on 05/06/17at 07:45 ; Start 05/03/17 at 06:00; Stop 05/06/17 at 18:15; Status DC Alprazolam (Xanax) 0.25 mg TID PO Last administered on 05/06/17 14:25; Start 05/02/17 at 21:00; Stop 05/06/17 at 20:59; Status DC Alprazolam (Xanax) 0.25 mg BID PO Last administered on 05/09/17 19:50; Start at 21:00; Stop 05/10/17 at 08:59; Status DC Alprazolam (Xanax) 0.25 mg DAILY PO Last administered on 05/13/17 08:21; Start 05/10/17 at 09:00; Stop 05/14/17 at 08:59; Status DC Mirtazapine (Remeron) 7.5 mg QHS PO Last administered on 05/02/17at 19:59; Start 05/02/17 at 21:00; Stop 05/03/17 at 19:31; Status DC Acetaminophen (Tylenol) 650 mg PRN Q6HRS PRN PO PAIN; Start 05/02/17 at 19:30 Aspirin (Children'S Aspirin) 81 mg DAILY PO Last administered on 05/17/17at 07: 50; Start 05/03/17 at 09:00 Cyanocobalamin (Vitamin B-12) 250 mcg DAILY PO Last administered on 05/17/17 07:51; Start 05/03/17 at 09:00 Al Hydroxide/Mg Hydroxide (Mylanta Plus Xs) 15 ml PRN AFTMEALHC PRN PO DYSPEPSIA; Start 05/02/17 at 19:30 Multi-Ingredient Ointment (Analgesic [place]) 1 beck PRN QID PRN TP MUSCLE PAIN; Start 05/02/17 at 19:30 Phenytoin Sodium (Dilantin) 100 mg BID PO Last administered on 05/17/17at 20:33 ; Start 05/02/17 at 21:00 Senna/Docusate Sodium (Senna Plus) 1 tab BID PO Last administered on 05/17/17 20:34; Start 05/02/17 at 21:00 Magnesium Hydroxide (Milk Of Magnesia) 2,400 mg PRN QHS PRN PO CONSTIPATION; Start 05/02/17 at 19:45 Potassium Chloride (Klor-Con) 20 meq DAILYWBKFT PO Last administered on at 07:51; Start 05/03/17 at 08:00 Neomycin/ Polymyxin/ Bacitracin (Triple Antibiotic Ointment) 1 pkt BID TP Last administered on 05/08/17at 08:51; Start 05/03/17 at 21:00; Stop 05/08/17 at 20:59; Status DC Mirtazapine (Remeron) 15 mg QHS PO Last administered on 05/17/17at 20:34; Start 05/03/17 at 21:00 Trazodone HCl (Desyrel) 50 mg PRN QHS PRN PO SLEEP Last administered on at 01:56; Start 05/03/17 at 19:30; Stop 05/16/17 at 18:59; Status DC Alprazolam (Xanax) 0.25 mg 1X ONCE PO Last administered on 05/05/17at 09:36; Start 05/05/17 at 10:00; Stop 05/05/17 at 10:01; Status DC Buspirone HCl (Buspar) 5 mg TID@0900,1300,1700 PO Last administered on at 16:43; Start 05/06/17 at 09:00; Stop 05/06/17 at 18:23; Status DC Buspirone HCl (Buspar) 5 mg BID@1300,1700 PO Last administered on 05/09/17at 14: 08; Start 05/07/17 at 13:00; Stop 05/09/17 at 18:34; Status DC Buspirone HCl (Buspar) 10 mg DAILY PO Last administered on 05/08/17at 08:49; Start 05/07/17 at 09:00; Stop 05/08/17 at 19:10; Status DC Divalproex Sodium (Depakote Sprinkles) 750 mg QHS PO Last administered on at 20:34; Start 05/07/17 at 21:00 Olanzapine (ZyPREXA ZYDIS) 2.5 mg QHS PO Last administered on 05/09/17at 19:48; Start 05/08/17 at 21:00; Stop 05/09/17 at 21:00; Status DC Divalproex Sodium (Depakote Sprinkles) 250 mg BID92 PO Last administered on 12/25at 13:03; Start 05/12/17 at 09:00 Buspirone HCl (Buspar) 5 mg BID@0900,1300 PO Last administered on 05/17/17at 13: 00; Start 05/15/17 at 13:00 Trazodone HCl (Desyrel) 50 mg PRN QHS PRN PO INSOMNIA, MAY REPEAT X1 Last administered on 05/17/17at 20:37; Start 05/16/17 at 19:00 Active Scripts Active Reported Klor-Con (Potassium Chloride) 20 Meq Packet 20 Meq PO DAILY Xanax (Alprazolam) 0.25 Mg Tablet 0.25 Mg PO QID Zoloft (Sertraline Hcl) 100 Mg Tablet 100 Mg PO DAILY Lorazepam Intensol (Lorazepam) 2 Mg/1 Ml Oral.conc 0.5 Mg PO PRN Q4HRS PRN Senna S Tablet (Sennosides/Docusate Sodium) 1 Each Tablet 1 Tab PO BID Depakote Sprinkle (Divalproex Sodium) 125 Mg Cap.sprink 500 Mg PO QHS Depakote Sprinkle (Divalproex Sodium) 125 Mg Cap.sprink 125 Mg PO BID92 Tylenol (Acetaminophen) 325 Mg Tablet 650 Mg PO PRN Q6HRS PRN Olanzapine Odt (Olanzapine) 5 Mg Tab.rapdis 5 Mg PO QHS Analgesic [place] (Methyl Salicylate/Menthol) 28 Gm Oint...g. 1 Beck TP PRN QID PRN Maalox Maximum Strength Susp (Mag Hydrox/Al Hydrox/Simeth) 355 Ml Oral.susp 15 Ml PO PRN AFTMEALHC PRN Milk Of Magnesia (Magnesium Hydroxide) 2,400 Mg/10 Ml Oral.susp 2,400 Mg PO PRN QHS PRN Vitamin B-12 (Cyanocobalamin (Vitamin B-12)) 1,000 Mcg Tablet 250 Mcg PO DAILY Lorazepam 0.5 Mg Tablet 0.5 Mg PO PRN Q4HRS PRN Dilantin (Phenytoin Sodium Extended) 100 Mg Capsule 100 Mg PO BID Aspirin 81 Mg Tab.chew 81 Mg PO DAILY I have reviewed the current psychotropics carefully including drug interactions. Risk benefit ratio favors no change other than as noted in my dictated progress note. Diagnosis: Problems: (1) Breakthrough seizure (2) Dementia with behavioral disturbance (3) Anxiety disorder (4) Dementia in Alzheimer's disease with delusions (5) Dementia in Alzheimer's disease with depression (6) Dementia, vascular, with delusions (7) Dementia, vascular, with depression (8) Impulse control disorder NAKIA KO MD May 17, 2017 21:33
[2017-05-18 06:32] VITALS: BP_SYST 66
[2017-05-18] MEDS: busPIRone 5 MG TABLET. PO SCH ×3 (07:41→20:53)
[2017-05-18] MEDS: LACTOBACILLUS RHAMNOSUS GG 1 CAPSULE. PO SCH ×2 (07:41→20:41)
[2017-05-18] MEDS: POTASSIUM CHLORIDE 20 MEQ TABLET.ER. PO SCH (07:41)
[2017-05-18] MEDS: DIVALPROEX 125 MG CAP.SPRINK PO SCH ×3 (07:41→20:42)
[2017-05-18] MEDS: PHENYTOIN SODIUM EXTENDED 100 MG CAPSULE PO SCH ×2 (07:41→20:41)
[2017-05-18] MEDS: ASPIRIN 81 MG TAB.CHEW PO SCH (07:41)
[2017-05-18] MEDS: CYANOCOBALAMIN (VITAMIN B-12) 250 MCG TABLET PO SCH (07:41)
[2017-05-18] MEDS: SERTRALINE 100 MG TABLET. PO SCH (07:41)
[2017-05-18] MEDS: SENNOSIDES/DOCUSATE 8.6/50MG TABLET. PO SCH ×2 (07:41→20:41)
[2017-05-18] MEDS: LORazepam 0.5 MG TABLET PO PRN (12:00)
--- NOTE | 2017-05-18 14:17 | PN ---
DATE: 05/16/2017 This late entry, 05/16/2017, covers elements not covered in my initial note of 05/16/2017. SUBJECTIVE: I met with the patient the evening of 05/16/2017. The patient slept 5 hours previous evening, up off and on during the night, agitated in the evening, unsteady gait, ambulates on her own. We have added trazodone 50 mg at bedtime p.r.n., may repeat x 1 for insomnia. REVIEW OF SYSTEMS: No CV, , pulmonary, eye, ENT system symptoms on review. Reliability poor. MENTAL STATUS EXAM: Oriented to herself. Insight, judgment, recent and remote memory, attention, concentration, fund of knowledge poor, consistent with her diagnosis mentioned in my initial note. IMPRESSION: Major neurocognitive disorder, Alzheimer, vascular with depression, delusion, behavioral disturbance. Rest unchanged. PLAN: Continue current psychotropics. Add trazodone. BuSpar was initiated, we will increase in a day or so. NAKIA KO MD DR: [email or web address] JOB#: [id number] / [id number]
[2017-05-18 16:29] VITALS: BP 124/70
--- NOTE | 2017-05-18 19:34 | PN ---
DATE: 05/17/2017 This is a late entry for 05/17/2017 and covers the elements not covered in my initial note of 05/17/2017. SUBJECTIVE: I met with the patient afternoon of 05/17/2017. The patient has an unsteady gait, walks on her own, quite anxious, confused. REVIEW OF SYSTEMS: No CV, , pulmonary, eye, ENT system symptoms on review. Reliability poor. MENTAL STATUS EXAM: Oriented to herself. Insight, judgment, recent and remote memory, attention, concentration, fund of knowledge poor, consistent with her diagnosis mentioned in my initial note. IMPRESSION: Major neurocognitive disorder, Alzheimer, vascular with depression, delusion, behavioral disturbance. Rest unchanged. PLAN: Continue current psychotropics mentioned in my initial note. We will gradually increase the BuSpar starting on 05/18/2017 from 5 mg b.i.d. to 5 mg 3 times a day. NAKIA KO MD DR: [email or web address]/luz JOB#: [id number] / [id number]
[2017-05-18] MEDS: traZODone 50 MG TABLET. PO PRN (20:41)
[2017-05-18] MEDS: MIRTAZAPINE 15 MG TABLET PO SCH (20:41)
--- NOTE | 2017-05-18 21:15 | PDOC ---
Exam Note: Dane Note: Please also refer to the separate dictated note~for this date of service dictated separately.~Patient seen individually. Discussed the patient with Nursing staff reviewed the chart.~Reviewed interim history and current functioning. Reviewed vital signs,~Labs/ Radiology~and current medications noted below. Continue current treatment with the changes noted in the dictated addendum note Assessment: Vital Signs: Vital Signs Date Time Temp Pulse Resp B/P (MAP) Pulse Ox O2 Delivery O2 Flow Rate FiO2 05/18/17 16:29 97.7 66 20 124/70 (88) 91 05/17/17 16:33 Room Air I&O Intake and Output 05/18/17 07:00 Intake Total 440 ml Balance 440 ml Intake Oral 440 ml # Voids 1 Current Medications: Meds: Current Medications Diphtheria/ Tetanus/Acell Pertussis (Boostrix) 0.5 ml ONCE ONCE VAX IM Last administered on 05/01/17at 22:36; Start 05/01/17 at 19:15; Stop 05/01/17 at 19:16 ; Status DC Lorazepam (Ativan) 2 mg 1X ONCE IM Last administered on 05/01/17at 19:45; Start 05/01/17 at 19:45; Stop 05/01/17 at 19:46; Status DC Diphenhydramine HCl (Benadryl) 50 mg 1X ONCE IM Last administered on at 19:45; Start 05/01/17 at 19:45; Stop 05/01/17 at 19:46; Status DC Diphenhydramine HCl (Benadryl) 50 mg STK-MED ONCE .ROUTE ; Start 05/01/17 at 19: 36; Stop 05/01/17 at 19:37; Status DC Lorazepam (Ativan) 1 mg STK-MED ONCE .ROUTE ; Start 05/01/17 at 19:38; Stop at 19:39; Status DC Midazolam HCl (Versed) 2 mg 1X ONCE IV ; Start 05/01/17 at 20:30; Stop at 20:31; Status DC Midazolam HCl (Versed) 5 mg STK-MED ONCE .ROUTE ; Start 05/01/17 at 20:25; Stop 05/01/17 at 20:26; Status DC Midazolam HCl (Versed) 5 mg 1X ONCE NS Last administered on 05/01/17at 20:40; Start 05/01/17 at 21:00; Stop 05/01/17 at 21:01; Status DC Ceftriaxone Sodium (Rocephin Im) 1 gm 1X ONCE IM Last administered on at 22:36; Start 05/01/17 at 21:15; Stop 05/01/17 at 21:16; Status DC Enoxaparin Sodium (Lovenox 60mg Syringe) 50 mg 1X ONCE SQ ; Start 05/01/17 at 21:45; Stop 05/01/17 at 21:45; Status DC Enoxaparin Sodium (Lovenox) 55 mg BID SQ ; Start 05/02/17 at 09:00; Stop at 09:00; Status DC Enoxaparin Sodium (Lovenox 60mg Syringe) 55 mg 1X ONCE SQ Last administered on 05/01/17at 22:35; Start 05/01/17 at 21:45; Stop 05/01/17 at 21:46; Status DC Iohexol (Omnipaque 300 Mg/ml) 75 ml 1X ONCE IV Last administered on 05/01/17at 22:11; Start 05/01/17 at 22:00; Stop 05/01/17 at 22:01; Status DC Midazolam HCl (Versed) 5 mg 1X ONCE IV ; Start 05/01/17 at 22:15; Stop at 22:18; Status DC Midazolam HCl (Versed) 1 mg 1X ONCE IV Last administered on 05/01/17at 22:30; Start 05/01/17 at 23:00; Stop 05/01/17 at 23:02; Status DC Cephalexin HCl (Keflex) 500 mg TID PO Last administered on 05/03/17at 20:27; Start 05/02/17 at 09:00; Stop 05/03/17 at 22:41; Status DC Alprazolam (Xanax) 0.25 mg QID PO Last administered on 05/02/17at 17:32; Start 05/02/17 at 09:00; Stop 05/02/17 at 19:27; Status DC Divalproex Sodium (Depakote Sprinkles) 125 mg BID92 PO Last administered on 05/11at 14:05; Start 05/02/17 at 09:00; Stop 05/11/17 at 18:42; Status DC Divalproex Sodium (Depakote Sprinkles) 500 mg QHS PO Last administered on at 19:41; Start 05/02/17 at 21:00; Stop 05/07/17 at 18:37; Status DC Lorazepam (Ativan) 0.5 mg PRN Q4HRS PRN PO ANXIETY / AGITATION Last administered on 05/18/17at 12:00; Start 05/02/17 at 01:00 Lorazepam (Ativan Intensol) 0.5 mg PRN Q4HRS PRN PO ANXIETY / AGITATION Last administered on 05/16/17 02:31; Start 05/02/17 at 01:00 Olanzapine (ZyPREXA ZYDIS) 5 mg QHS PO Last administered on 05/07/17at 20:07; Start 05/02/17 at 21:00; Stop 05/08/17 at 19:10; Status DC Sertraline HCl (Zoloft) 100 mg DAILY PO Last administered on 05/18/17at 07:41; Start 05/02/17 at 09:00 Levofloxacin (Levaquin) 500 mg DAILY06 PO Last administered on 05/02/17at 08:53 ; Start 05/02/17 at 07:30; Stop 05/02/17 at 10:36; Status DC Lactobacillus Rhamnosus (Culturelle) 1 cap BID PO Last administered on at 20:41; Start 05/02/17 at 09:00 Levofloxacin (Levaquin) 250 mg DAILY06 PO Last administered on 05/06/17at 07:45 ; Start 05/03/17 at 06:00; Stop 05/06/17 at 18:15; Status DC Alprazolam (Xanax) 0.25 mg TID PO Last administered on 05/06/17at 14:25; Start 05/02/17 at 21:00; Stop 05/06/17 at 20:59; Status DC Alprazolam (Xanax) 0.25 mg BID PO Last administered on 05/09/17at 19:50; Start at 21:00; Stop 05/10/17 at 08:59; Status DC Alprazolam (Xanax) 0.25 mg DAILY PO Last administered on 05/13/17 08:21; Start 05/10/17 at 09:00; Stop 05/14/17 at 08:59; Status DC Mirtazapine (Remeron) 7.5 mg QHS PO Last administered on 05/02/17 19:59; Start 05/02/17 at 21:00; Stop 05/03/17 at 19:31; Status DC Acetaminophen (Tylenol) 650 mg PRN Q6HRS PRN PO PAIN; Start 05/02/17 at 19:30 Aspirin (Children'S Aspirin) 81 mg DAILY PO Last administered on 05/18/17 07: 41; Start 05/03/17 at 09:00 Cyanocobalamin (Vitamin B-12) 250 mcg DAILY PO Last administered on 05/18/17 07:41; Start 05/03/17 at 09:00 Al Hydroxide/Mg Hydroxide (Mylanta Plus Xs) 15 ml PRN AFTMEALHC PRN PO DYSPEPSIA; Start 05/02/17 at 19:30 Multi-Ingredient Ointment (Analgesic [place]) 1 beck PRN QID PRN TP MUSCLE PAIN; Start 05/02/17 at 19:30 Phenytoin Sodium (Dilantin) 100 mg BID PO Last administered on 05/18/17at 20:41 ; Start 05/02/17 at 21:00 Senna/Docusate Sodium (Senna Plus) 1 tab BID PO Last administered on 05/18/17at 20:41; Start 05/02/17 at 21:00 Magnesium Hydroxide (Milk Of Magnesia) 2,400 mg PRN QHS PRN PO CONSTIPATION; Start 05/02/17 at 19:45 Potassium Chloride (Klor-Con) 20 meq DAILYWBKFT PO Last administered on at 07:41; Start 05/03/17 at 08:00 Neomycin/ Polymyxin/ Bacitracin (Triple Antibiotic Ointment) 1 pkt BID TP Last administered on 05/08/17at 08:51; Start 05/03/17 at 21:00; Stop 05/08/17 at 20:59; Status DC Mirtazapine (Remeron) 15 mg QHS PO Last administered on 05/18/17at 20:41; Start 05/03/17 at 21:00 Trazodone HCl (Desyrel) 50 mg PRN QHS PRN PO SLEEP Last administered on at 01:56; Start 05/03/17 at 19:30; Stop 05/16/17 at 18:59; Status DC Alprazolam (Xanax) 0.25 mg 1X ONCE PO Last administered on 05/05/17at 09:36; Start 05/05/17 at 10:00; Stop 05/05/17 at 10:01; Status DC Buspirone HCl (Buspar) 5 mg TID@0900,1300,1700 PO Last administered on at 16:43; Start 05/06/17 at 09:00; Stop 05/06/17 at 18:23; Status DC Buspirone HCl (Buspar) 5 mg BID@1300,1700 PO Last administered on 05/09/17at 14: 08; Start 05/07/17 at 13:00; Stop 05/09/17 at 18:34; Status DC Buspirone HCl (Buspar) 10 mg DAILY PO Last administered on 05/08/17at 08:49; Start 05/07/17 at 09:00; Stop 05/08/17 at 19:10; Status DC Divalproex Sodium (Depakote Sprinkles) 750 mg QHS PO Last administered on at 20:42; Start 05/07/17 at 21:00 Olanzapine (ZyPREXA ZYDIS) 2.5 mg QHS PO Last administered on 05/09/17at 19:48; Start 05/08/17 at 21:00; Stop 05/09/17 at 21:00; Status DC Divalproex Sodium (Depakote Sprinkles) 250 mg BID92 PO Last administered on 01/25at 13:17; Start 05/12/17 at 09:00 Buspirone HCl (Buspar) 5 mg BID@0900,1300 PO Last administered on 05/18/17at 13: 00; Start 05/15/17 at 13:00; Stop 05/18/17 at 15:50; Status DC Trazodone HCl (Desyrel) 50 mg PRN QHS PRN PO INSOMNIA, MAY REPEAT X1 Last administered on 05/18/17at 20:41; Start 05/16/17 at 19:00 Buspirone HCl (Buspar) 5 mg TID PO ; Start 05/18/17 at 21:00 Active Scripts Active Reported Klor-Con (Potassium Chloride) 20 Meq Packet 20 Meq PO DAILY Xanax (Alprazolam) 0.25 Mg Tablet 0.25 Mg PO QID Zoloft (Sertraline Hcl) 100 Mg Tablet 100 Mg PO DAILY Lorazepam Intensol (Lorazepam) 2 Mg/1 Ml Oral.conc 0.5 Mg PO PRN Q4HRS PRN Senna S Tablet (Sennosides/Docusate Sodium) 1 Each Tablet 1 Tab PO BID Depakote Sprinkle (Divalproex Sodium) 125 Mg Cap.sprink 500 Mg PO QHS Depakote Sprinkle (Divalproex Sodium) 125 Mg Cap.sprink 125 Mg PO BID92 Tylenol (Acetaminophen) 325 Mg Tablet 650 Mg PO PRN Q6HRS PRN Olanzapine Odt (Olanzapine) 5 Mg Tab.rapdis 5 Mg PO QHS Analgesic [place] (Methyl Salicylate/Menthol) 28 Gm Oint...g. 1 Beck TP PRN QID PRN Maalox Maximum Strength Susp (Mag Hydrox/Al Hydrox/Simeth) 355 Ml Oral.susp 15 Ml PO PRN AFTMEALHC PRN Milk Of Magnesia (Magnesium Hydroxide) 2,400 Mg/10 Ml Oral.susp 2,400 Mg PO PRN QHS PRN Vitamin B-12 (Cyanocobalamin (Vitamin B-12)) 1,000 Mcg Tablet 250 Mcg PO DAILY Lorazepam 0.5 Mg Tablet 0.5 Mg PO PRN Q4HRS PRN Dilantin (Phenytoin Sodium Extended) 100 Mg Capsule 100 Mg PO BID Aspirin 81 Mg Tab.chew 81 Mg PO DAILY I have reviewed the current psychotropics carefully including drug interactions. Risk benefit ratio favors no change other than as noted in my dictated progress note. Diagnosis: Problems: (1) Hypernatremia (2) Metabolic encephalopathy (3) Breakthrough seizure (4) Dementia with behavioral disturbance (5) Anxiety disorder (6) Dementia in Alzheimer's disease with delusions (7) Dementia in Alzheimer's disease with depression (8) Dementia, vascular, with delusions (9) Dementia, vascular, with depression (10) Impulse control disorder MAIKEL,MAN M MD May 18, 2017 21:15
[2017-05-19 06:07] VITALS: BP 134/55
[2017-05-19] MEDS: CYANOCOBALAMIN (VITAMIN B-12) 250 MCG TABLET PO SCH (09:12)
[2017-05-19] MEDS: PHENYTOIN SODIUM EXTENDED 100 MG CAPSULE PO SCH ×2 (09:12→19:34)
[2017-05-19] MEDS: SENNOSIDES/DOCUSATE 8.6/50MG TABLET. PO SCH ×2 (09:12→19:34)
[2017-05-19] MEDS: busPIRone 5 MG TABLET. PO SCH ×3 (09:12→19:34)
[2017-05-19] MEDS: POTASSIUM CHLORIDE 20 MEQ TABLET.ER. PO SCH (09:12)
[2017-05-19] MEDS: DIVALPROEX 125 MG CAP.SPRINK PO SCH ×3 (09:12→19:35)
[2017-05-19] MEDS: LACTOBACILLUS RHAMNOSUS GG 1 CAPSULE. PO SCH ×2 (09:13→19:34)
[2017-05-19] MEDS: SERTRALINE 100 MG TABLET. PO SCH (09:13)
[2017-05-19] MEDS: ASPIRIN 81 MG TAB.CHEW PO SCH (09:13)
[2017-05-19] MEDS: LORazepam INTENSOL 2 MG/ML BOTTLE PO PRN (15:55)
[2017-05-19 16:12] VITALS: BP 127/81
[2017-05-19] MEDS: MIRTAZAPINE 15 MG TABLET PO SCH (19:34)
--- NOTE | 2017-05-19 20:38 | PDOC ---
Exam Note: Dane Note: Please also refer to the separate dictated note~for this date of service dictated separately.~Patient seen individually. Discussed the patient with Nursing staff reviewed the chart.~Reviewed interim history and current functioning. Reviewed vital signs,~Labs/ Radiology~and current medications noted below. Continue current treatment with the changes noted in the dictated addendum note Assessment: Vital Signs: Vital Signs Date Time Temp Pulse Resp B/P (MAP) Pulse Ox O2 Delivery O2 Flow Rate FiO2 05/19/17 16:12 98.6 91 16 127/81 (96) 96 05/17/17 16:33 Room Air I&O Intake and Output 05/19/17 07:00 Intake Total 840 ml Balance 840 ml Intake Oral 840 ml # Voids 1 Current Medications: Meds: Current Medications Diphtheria/ Tetanus/Acell Pertussis (Boostrix) 0.5 ml ONCE ONCE VAX IM Last administered on 05/01/17at 22:36; Start 05/01/17 at 19:15; Stop 05/01/17 at 19:16 ; Status DC Lorazepam (Ativan) 2 mg 1X ONCE IM Last administered on 05/01/17at 19:45; Start 05/01/17 at 19:45; Stop 05/01/17 at 19:46; Status DC Diphenhydramine HCl (Benadryl) 50 mg 1X ONCE IM Last administered on at 19:45; Start 05/01/17 at 19:45; Stop 05/01/17 at 19:46; Status DC Diphenhydramine HCl (Benadryl) 50 mg STK-MED ONCE .ROUTE ; Start 05/01/17 at 19: 36; Stop 05/01/17 at 19:37; Status DC Lorazepam (Ativan) 1 mg STK-MED ONCE .ROUTE ; Start 05/01/17 at 19:38; Stop at 19:39; Status DC Midazolam HCl (Versed) 2 mg 1X ONCE IV ; Start 05/01/17 at 20:30; Stop at 20:31; Status DC Midazolam HCl (Versed) 5 mg STK-MED ONCE .ROUTE ; Start 05/01/17 at 20:25; Stop 05/01/17 at 20:26; Status DC Midazolam HCl (Versed) 5 mg 1X ONCE NS Last administered on 05/01/17at 20:40; Start 05/01/17 at 21:00; Stop 05/01/17 at 21:01; Status DC Ceftriaxone Sodium (Rocephin Im) 1 gm 1X ONCE IM Last administered on at 22:36; Start 05/01/17 at 21:15; Stop 05/01/17 at 21:16; Status DC Enoxaparin Sodium (Lovenox 60mg Syringe) 50 mg 1X ONCE SQ ; Start 05/01/17 at 21:45; Stop 05/01/17 at 21:45; Status DC Enoxaparin Sodium (Lovenox) 55 mg BID SQ ; Start 05/02/17 at 09:00; Stop at 09:00; Status DC Enoxaparin Sodium (Lovenox 60mg Syringe) 55 mg 1X ONCE SQ Last administered on 05/01/17at 22:35; Start 05/01/17 at 21:45; Stop 05/01/17 at 21:46; Status DC Iohexol (Omnipaque 300 Mg/ml) 75 ml 1X ONCE IV Last administered on 05/01/17at 22:11; Start 05/01/17 at 22:00; Stop 05/01/17 at 22:01; Status DC Midazolam HCl (Versed) 5 mg 1X ONCE IV ; Start 05/01/17 at 22:15; Stop at 22:18; Status DC Midazolam HCl (Versed) 1 mg 1X ONCE IV Last administered on 05/01/17at 22:30; Start 05/01/17 at 23:00; Stop 05/01/17 at 23:02; Status DC Cephalexin HCl (Keflex) 500 mg TID PO Last administered on 05/03/17at 20:27; Start 05/02/17 at 09:00; Stop 05/03/17 at 22:41; Status DC Alprazolam (Xanax) 0.25 mg QID PO Last administered on 05/02/17at 17:32; Start 05/02/17 at 09:00; Stop 05/02/17 at 19:27; Status DC Divalproex Sodium (Depakote Sprinkles) 125 mg BID92 PO Last administered on 05/11at 14:05; Start 05/02/17 at 09:00; Stop 05/11/17 at 18:42; Status DC Divalproex Sodium (Depakote Sprinkles) 500 mg QHS PO Last administered on at 19:41; Start 05/02/17 at 21:00; Stop 05/07/17 at 18:37; Status DC Lorazepam (Ativan) 0.5 mg PRN Q4HRS PRN PO ANXIETY / AGITATION Last administered on 05/18/17at 12:00; Start 05/02/17 at 01:00 Lorazepam (Ativan Intensol) 0.5 mg PRN Q4HRS PRN PO ANXIETY / AGITATION Last administered on 05/19/17 15:55; Start 05/02/17 at 01:00 Olanzapine (ZyPREXA ZYDIS) 5 mg QHS PO Last administered on 05/07/17 20:07; Start 05/02/17 at 21:00; Stop 05/08/17 at 19:10; Status DC Sertraline HCl (Zoloft) 100 mg DAILY PO Last administered on 05/19/17 09:13; Start 05/02/17 at 09:00 Levofloxacin (Levaquin) 500 mg DAILY06 PO Last administered on 05/02/17at 08:53 ; Start 05/02/17 at 07:30; Stop 05/02/17 at 10:36; Status DC Lactobacillus Rhamnosus (Culturelle) 1 cap BID PO Last administered on at 19:34; Start 05/02/17 at 09:00 Levofloxacin (Levaquin) 250 mg DAILY06 PO Last administered on 05/06/17at 07:45 ; Start 05/03/17 at 06:00; Stop 05/06/17 at 18:15; Status DC Alprazolam (Xanax) 0.25 mg TID PO Last administered on 05/06/17at 14:25; Start 05/02/17 at 21:00; Stop 05/06/17 at 20:59; Status DC Alprazolam (Xanax) 0.25 mg BID PO Last administered on 05/09/17 19:50; Start at 21:00; Stop 05/10/17 at 08:59; Status DC Alprazolam (Xanax) 0.25 mg DAILY PO Last administered on 05/13/17 08:21; Start 05/10/17 at 09:00; Stop 05/14/17 at 08:59; Status DC Mirtazapine (Remeron) 7.5 mg QHS PO Last administered on 05/02/17 19:59; Start 05/02/17 at 21:00; Stop 05/03/17 at 19:31; Status DC Acetaminophen (Tylenol) 650 mg PRN Q6HRS PRN PO PAIN; Start 05/02/17 at 19:30 Aspirin (Children'S Aspirin) 81 mg DAILY PO Last administered on 05/19/17at 09: 13; Start 05/03/17 at 09:00 Cyanocobalamin (Vitamin B-12) 250 mcg DAILY PO Last administered on 05/19/17at 09:12; Start 05/03/17 at 09:00 Al Hydroxide/Mg Hydroxide (Mylanta Plus Xs) 15 ml PRN AFTMEALHC PRN PO DYSPEPSIA; Start 05/02/17 at 19:30 Multi-Ingredient Ointment (Analgesic Venus) 1 beck PRN QID PRN TP MUSCLE PAIN; Start 05/02/17 at 19:30 Phenytoin Sodium (Dilantin) 100 mg BID PO Last administered on 05/19/17at 19:34 ; Start 05/02/17 at 21:00 Senna/Docusate Sodium (Senna Plus) 1 tab BID PO Last administered on 05/19/17 19:34; Start 05/02/17 at 21:00 Magnesium Hydroxide (Milk Of Magnesia) 2,400 mg PRN QHS PRN PO CONSTIPATION; Start 05/02/17 at 19:45 Potassium Chloride (Klor-Con) 20 meq DAILYWBKFT PO Last administered on at 09:12; Start 05/03/17 at 08:00 Neomycin/ Polymyxin/ Bacitracin (Triple Antibiotic Ointment) 1 pkt BID TP Last administered on 05/08/17at 08:51; Start 05/03/17 at 21:00; Stop 05/08/17 at 20:59; Status DC Mirtazapine (Remeron) 15 mg QHS PO Last administered on 05/19/17at 19:34; Start 05/03/17 at 21:00 Trazodone HCl (Desyrel) 50 mg PRN QHS PRN PO SLEEP Last administered on at 01:56; Start 05/03/17 at 19:30; Stop 05/16/17 at 18:59; Status DC Alprazolam (Xanax) 0.25 mg 1X ONCE PO Last administered on 05/05/17at 09:36; Start 05/05/17 at 10:00; Stop 05/05/17 at 10:01; Status DC Buspirone HCl (Buspar) 5 mg TID@0900,1300,1700 PO Last administered on at 16:43; Start 05/06/17 at 09:00; Stop 05/06/17 at 18:23; Status DC Buspirone HCl (Buspar) 5 mg BID@1300,1700 PO Last administered on 05/09/17at 14: 08; Start 05/07/17 at 13:00; Stop 05/09/17 at 18:34; Status DC Buspirone HCl (Buspar) 10 mg DAILY PO Last administered on 05/08/17at 08:49; Start 05/07/17 at 09:00; Stop 05/08/17 at 19:10; Status DC Divalproex Sodium (Depakote Sprinkles) 750 mg QHS PO Last administered on at 19:35; Start 05/07/17 at 21:00 Olanzapine (ZyPREXA ZYDIS) 2.5 mg QHS PO Last administered on 05/09/17at 19:48; Start 05/08/17 at 21:00; Stop 05/09/17 at 21:00; Status DC Divalproex Sodium (Depakote Sprinkles) 250 mg [id number] PO Last administered on 02/24at 13:50; Start 05/12/17 at 09:00 Buspirone HCl (Buspar) 5 mg BID@0900,1300 PO Last administered on 05/18/17at 13: 00; Start 05/15/17 at 13:00; Stop 05/18/17 at 15:50; Status DC Trazodone HCl (Desyrel) 50 mg PRN QHS PRN PO INSOMNIA, MAY REPEAT X1 Last administered on 05/18/17at 20:41; Start 05/16/17 at 19:00 Buspirone HCl (Buspar) 5 mg TID PO Last administered on 05/19/17at 13:50; Start 05/18/17 at 21:00; Stop 05/19/17 at 18:46; Status DC Buspirone HCl (Buspar) 5 mg [id number] PO Last administered on 05/19/17at 19:34; Start 05/19/17 at 21:00 Active Scripts Active Reported Klor-Con (Potassium Chloride) 20 Meq Packet 20 Meq PO DAILY Xanax (Alprazolam) 0.25 Mg Tablet 0.25 Mg PO QID Zoloft (Sertraline Hcl) 100 Mg Tablet 100 Mg PO DAILY Lorazepam Intensol (Lorazepam) 2 Mg/1 Ml Oral.conc 0.5 Mg PO PRN Q4HRS PRN Senna S Tablet (Sennosides/Docusate Sodium) 1 Each Tablet 1 Tab PO BID Depakote Sprinkle (Divalproex Sodium) 125 Mg Cap.sprink 500 Mg PO QHS Depakote Sprinkle (Divalproex Sodium) 125 Mg Cap.sprink 125 Mg PO BID92 Tylenol (Acetaminophen) 325 Mg Tablet 650 Mg PO PRN Q6HRS PRN Olanzapine Odt (Olanzapine) 5 Mg Tab.rapdis 5 Mg PO QHS Analgesic Venus (Methyl Salicylate/Menthol) 28 Gm Oint...g. 1 Beck TP PRN QID PRN Maalox Maximum Strength Susp (Mag Hydrox/Al Hydrox/Simeth) 355 Ml Oral.susp 15 Ml PO PRN AFTMEALHC PRN Milk Of Magnesia (Magnesium Hydroxide) 2,400 Mg/10 Ml Oral.susp 2,400 Mg PO PRN QHS PRN Vitamin B-12 (Cyanocobalamin (Vitamin B-12)) 1,000 Mcg Tablet 250 Mcg PO DAILY Lorazepam 0.5 Mg Tablet 0.5 Mg PO PRN Q4HRS PRN Dilantin (Phenytoin Sodium Extended) 100 Mg Capsule 100 Mg PO BID Aspirin 81 Mg Tab.chew 81 Mg PO DAILY I have reviewed the current psychotropics carefully including drug interactions. Risk benefit ratio favors no change other than as noted in my dictated progress note. 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
--- NOTE | 2017-05-19 22:09 | PN ---
DATE: 05/18/2017 PSYCHIATRIC PROGRESS NOTE This late entry 05/18/2017 covers elements not covered in my initial note of 05/18/2017. SUBJECTIVE: The patient slept 5-3/4 hours previous evening. The patient was seen individually in evening of 05/18/2017, remained somewhat anxious especially around 2:30 p.m. REVIEW OF SYSTEMS: No CV, , pulmonary, eye, ENT system symptoms on review. Reliability is poor. MENTAL STATUS EXAM: Oriented to herself. Insight, judgment, recent and remote memory, attention, concentration, fund of knowledge is poor, consistent with her diagnoses mentioned in my initial note. PLAN: Continue current psychotropics. Valproic acid level is therapeutic at 51. BuSpar was recently increased to 5 mg t.i.d. Adjust further as clinically indicated. MAN Leandro KO MD DR: [email or web address]/luz JOB#: [id number] / [id number]
[2017-05-20 06:09] VITALS: BP 119/67
[2017-05-20] MEDS: LACTOBACILLUS RHAMNOSUS GG 1 CAPSULE. PO SCH ×2 (08:57→19:28)
[2017-05-20] MEDS: POTASSIUM CHLORIDE 20 MEQ TABLET.ER. PO SCH (08:57)
[2017-05-20] MEDS: SENNOSIDES/DOCUSATE 8.6/50MG TABLET. PO SCH ×2 (08:58→19:32)
[2017-05-20] MEDS: CYANOCOBALAMIN (VITAMIN B-12) 250 MCG TABLET PO SCH (08:58)
[2017-05-20] MEDS: busPIRone 5 MG TABLET. PO SCH ×4 (08:58→19:29)
[2017-05-20] MEDS: ASPIRIN 81 MG TAB.CHEW PO SCH (08:58)
[2017-05-20] MEDS: PHENYTOIN SODIUM EXTENDED 100 MG CAPSULE PO SCH ×2 (08:58→19:30)
[2017-05-20] MEDS: SERTRALINE 100 MG TABLET. PO SCH (08:58)
[2017-05-20] MEDS: DIVALPROEX 125 MG CAP.SPRINK PO SCH ×3 (08:59→19:30)
[2017-05-20] MEDS: LORazepam 0.5 MG TABLET PO PRN (15:53)
[2017-05-20 16:03] VITALS: BP 108/73
[2017-05-20] MEDS: MIRTAZAPINE 15 MG TABLET PO SCH (19:30)
--- NOTE | 2017-05-20 22:30 | PDOC ---
Exam Note: Dane Note: Please also refer to the separate dictated note~for this date of service dictated separately.~Patient seen individually. Discussed the patient with Nursing staff reviewed the chart.~Reviewed interim history and current functioning. Reviewed vital signs,~Labs/ Radiology~and current medications noted below. Continue current treatment with the changes noted in the dictated addendum note Assessment: Vital Signs: Vital Signs Date Time Temp Pulse Resp B/P (MAP) Pulse Ox O2 Delivery O2 Flow Rate FiO2 05/20/17 16:03 97.9 90 18 108/73 (85) 95 05/17/17 16:33 Room Air I&O Intake and Output 05/20/17 07:00 Intake Total 360 ml Balance 360 ml Intake Oral 360 ml # Voids 1 Current Medications: Meds: Current Medications Diphtheria/ Tetanus/Acell Pertussis (Boostrix) 0.5 ml ONCE ONCE VAX IM Last administered on 05/01/17at 22:36; Start 05/01/17 at 19:15; Stop 05/01/17 at 19:16 ; Status DC Lorazepam (Ativan) 2 mg 1X ONCE IM Last administered on 05/01/17at 19:45; Start 05/01/17 at 19:45; Stop 05/01/17 at 19:46; Status DC Diphenhydramine HCl (Benadryl) 50 mg 1X ONCE IM Last administered on at 19:45; Start 05/01/17 at 19:45; Stop 05/01/17 at 19:46; Status DC Diphenhydramine HCl (Benadryl) 50 mg STK-MED ONCE .ROUTE ; Start 05/01/17 at 19: 36; Stop 05/01/17 at 19:37; Status DC Lorazepam (Ativan) 1 mg STK-MED ONCE .ROUTE ; Start 05/01/17 at 19:38; Stop at 19:39; Status DC Midazolam HCl (Versed) 2 mg 1X ONCE IV ; Start 05/01/17 at 20:30; Stop at 20:31; Status DC Midazolam HCl (Versed) 5 mg STK-MED ONCE .ROUTE ; Start 05/01/17 at 20:25; Stop 05/01/17 at 20:26; Status DC Midazolam HCl (Versed) 5 mg 1X ONCE NS Last administered on 05/01/17at 20:40; Start 05/01/17 at 21:00; Stop 05/01/17 at 21:01; Status DC Ceftriaxone Sodium (Rocephin Im) 1 gm 1X ONCE IM Last administered on at 22:36; Start 05/01/17 at 21:15; Stop 05/01/17 at 21:16; Status DC Enoxaparin Sodium (Lovenox 60mg Syringe) 50 mg 1X ONCE SQ ; Start 05/01/17 at 21:45; Stop 05/01/17 at 21:45; Status DC Enoxaparin Sodium (Lovenox) 55 mg BID SQ ; Start 05/02/17 at 09:00; Stop at 09:00; Status DC Enoxaparin Sodium (Lovenox 60mg Syringe) 55 mg 1X ONCE SQ Last administered on 05/01/17at 22:35; Start 05/01/17 at 21:45; Stop 05/01/17 at 21:46; Status DC Iohexol (Omnipaque 300 Mg/ml) 75 ml 1X ONCE IV Last administered on 05/01/17at 22:11; Start 05/01/17 at 22:00; Stop 05/01/17 at 22:01; Status DC Midazolam HCl (Versed) 5 mg 1X ONCE IV ; Start 05/01/17 at 22:15; Stop at 22:18; Status DC Midazolam HCl (Versed) 1 mg 1X ONCE IV Last administered on 05/01/17at 22:30; Start 05/01/17 at 23:00; Stop 05/01/17 at 23:02; Status DC Cephalexin HCl (Keflex) 500 mg TID PO Last administered on 05/03/17at 20:27; Start 05/02/17 at 09:00; Stop 05/03/17 at 22:41; Status DC Alprazolam (Xanax) 0.25 mg QID PO Last administered on 05/02/17at 17:32; Start 05/02/17 at 09:00; Stop 05/02/17 at 19:27; Status DC Divalproex Sodium (Depakote Sprinkles) 125 mg BID92 PO Last administered on 05/11at 14:05; Start 05/02/17 at 09:00; Stop 05/11/17 at 18:42; Status DC Divalproex Sodium (Depakote Sprinkles) 500 mg QHS PO Last administered on at 19:41; Start 05/02/17 at 21:00; Stop 05/07/17 at 18:37; Status DC Lorazepam (Ativan) 0.5 mg PRN Q4HRS PRN PO ANXIETY / AGITATION Last administered on 05/20/17at 15:53; Start 05/02/17 at 01:00 Lorazepam (Ativan Intensol) 0.5 mg PRN Q4HRS PRN PO ANXIETY / AGITATION Last administered on 05/19/17 15:55; Start 05/02/17 at 01:00 Olanzapine (ZyPREXA ZYDIS) 5 mg QHS PO Last administered on 05/07/17at 20:07; Start 05/02/17 at 21:00; Stop 05/08/17 at 19:10; Status DC Sertraline HCl (Zoloft) 100 mg DAILY PO Last administered on 05/20/17at 08:58; Start 05/02/17 at 09:00 Levofloxacin (Levaquin) 500 mg DAILY06 PO Last administered on 05/02/17at 08:53 ; Start 05/02/17 at 07:30; Stop 05/02/17 at 10:36; Status DC Lactobacillus Rhamnosus (Culturelle) 1 cap BID PO Last administered on at 19:28; Start 05/02/17 at 09:00 Levofloxacin (Levaquin) 250 mg DAILY06 PO Last administered on 05/06/17at 07:45 ; Start 05/03/17 at 06:00; Stop 05/06/17 at 18:15; Status DC Alprazolam (Xanax) 0.25 mg TID PO Last administered on 05/06/17at 14:25; Start 05/02/17 at 21:00; Stop 05/06/17 at 20:59; Status DC Alprazolam (Xanax) 0.25 mg BID PO Last administered on 05/09/17 19:50; Start at 21:00; Stop 05/10/17 at 08:59; Status DC Alprazolam (Xanax) 0.25 mg DAILY PO Last administered on 05/13/17 08:21; Start 05/10/17 at 09:00; Stop 05/14/17 at 08:59; Status DC Mirtazapine (Remeron) 7.5 mg QHS PO Last administered on 05/02/17 19:59; Start 05/02/17 at 21:00; Stop 05/03/17 at 19:31; Status DC Acetaminophen (Tylenol) 650 mg PRN Q6HRS PRN PO PAIN; Start 05/02/17 at 19:30 Aspirin (Children'S Aspirin) 81 mg DAILY PO Last administered on 05/20/17 08: 58; Start 05/03/17 at 09:00 Cyanocobalamin (Vitamin B-12) 250 mcg DAILY PO Last administered on 05/20/17 08:58; Start 05/03/17 at 09:00 Al Hydroxide/Mg Hydroxide (Mylanta Plus Xs) 15 ml PRN AFTMEALHC PRN PO DYSPEPSIA; Start 05/02/17 at 19:30 Multi-Ingredient Ointment (Analgesic Kimball) 1 beck PRN QID PRN TP MUSCLE PAIN; Start 05/02/17 at 19:30 Phenytoin Sodium (Dilantin) 100 mg BID PO Last administered on 05/20/17 19:30 ; Start 05/02/17 at 21:00 Senna/Docusate Sodium (Senna Plus) 1 tab BID PO Last administered on 05/20/17 19:32; Start 05/02/17 at 21:00 Magnesium Hydroxide (Milk Of Magnesia) 2,400 mg PRN QHS PRN PO CONSTIPATION Last administered on 05/20/17 11:56; Start 05/02/17 at 19:45 Potassium Chloride (Klor-Con) 20 meq DAILYWBKFT PO Last administered on 08:57; Start 05/03/17 at 08:00 Neomycin/ Polymyxin/ Bacitracin (Triple Antibiotic Ointment) 1 pkt BID TP Last administered on 05/08/17 08:51; Start 05/03/17 at 21:00; Stop 05/08/17 at 20:59; Status DC Mirtazapine (Remeron) 15 mg QHS PO Last administered on 05/20/17 19:30; Start 05/03/17 at 21:00 Trazodone HCl (Desyrel) 50 mg PRN QHS PRN PO SLEEP Last administered on at 01:56; Start 05/03/17 at 19:30; Stop 05/16/17 at 18:59; Status DC Alprazolam (Xanax) 0.25 mg 1X ONCE PO Last administered on 05/05/17at 09:36; Start 05/05/17 at 10:00; Stop 05/05/17 at 10:01; Status DC Buspirone HCl (Buspar) 5 mg TID@0900,1300,1700 PO Last administered on at 16:43; Start 05/06/17 at 09:00; Stop 05/06/17 at 18:23; Status DC Buspirone HCl (Buspar) 5 mg BID@1300,1700 PO Last administered on 05/09/17 14: 08; Start 05/07/17 at 13:00; Stop 05/09/17 at 18:34; Status DC Buspirone HCl (Buspar) 10 mg DAILY PO Last administered on 05/08/17at 08:49; Start 05/07/17 at 09:00; Stop 05/08/17 at 19:10; Status DC Divalproex Sodium (Depakote Sprinkles) 750 mg QHS PO Last administered on 19:30; Start 05/07/17 at 21:00 Olanzapine (ZyPREXA ZYDIS) 2.5 mg QHS PO Last administered on 05/09/17at 19:48; Start 05/08/17 at 21:00; Stop 05/09/17 at 21:00; Status DC Divalproex Sodium (Depakote Sprinkles) 250 mg [id number] PO Last administered on 14:18; Start 05/12/17 at 09:00 Buspirone HCl (Buspar) 5 mg BID@0900,1300 PO Last administered on 05/18/17at 13: 00; Start 05/15/17 at 13:00; Stop 05/18/17 at 15:50; Status DC Trazodone HCl (Desyrel) 50 mg PRN QHS PRN PO INSOMNIA, MAY REPEAT X1 Last administered on 05/18/17at 20:41; Start 05/16/17 at 19:00 Buspirone HCl (Buspar) 5 mg TID PO Last administered on 05/19/17at 13:50; Start 05/18/17 at 21:00; Stop 05/19/17 at 18:46; Status DC Buspirone HCl (Buspar) 5 mg [id number] PO Last administered on 05/20/17at 19:29; Start 05/19/17 at 21:00 Active Scripts Active Reported Klor-Con (Potassium Chloride) 20 Meq Packet 20 Meq PO DAILY Xanax (Alprazolam) 0.25 Mg Tablet 0.25 Mg PO QID Zoloft (Sertraline Hcl) 100 Mg Tablet 100 Mg PO DAILY Lorazepam Intensol (Lorazepam) 2 Mg/1 Ml Oral.conc 0.5 Mg PO PRN Q4HRS PRN Senna S Tablet (Sennosides/Docusate Sodium) 1 Each Tablet 1 Tab PO BID Depakote Sprinkle (Divalproex Sodium) 125 Mg Cap.sprink 500 Mg PO QHS Depakote Sprinkle (Divalproex Sodium) 125 Mg Cap.sprink 125 Mg PO BID92 Tylenol (Acetaminophen) 325 Mg Tablet 650 Mg PO PRN Q6HRS PRN Olanzapine Odt (Olanzapine) 5 Mg Tab.rapdis 5 Mg PO QHS Analgesic Kimball (Methyl Salicylate/Menthol) 28 Gm Oint...g. 1 Beck TP PRN QID PRN Maalox Maximum Strength Susp (Mag Hydrox/Al Hydrox/Simeth) 355 Ml Oral.susp 15 Ml PO PRN AFTMEALHC PRN Milk Of Magnesia (Magnesium Hydroxide) 2,400 Mg/10 Ml Oral.susp 2,400 Mg PO PRN QHS PRN Vitamin B-12 (Cyanocobalamin (Vitamin B-12)) 1,000 Mcg Tablet 250 Mcg PO DAILY Lorazepam 0.5 Mg Tablet 0.5 Mg PO PRN Q4HRS PRN Dilantin (Phenytoin Sodium Extended) 100 Mg Capsule 100 Mg PO BID Aspirin 81 Mg Tab.chew 81 Mg PO DAILY I have reviewed the current psychotropics carefully including drug interactions. Risk benefit ratio favors no change other than as noted in my dictated progress note. 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
--- NOTE | 2017-05-20 23:47 | PN ---
DATE: 05/19/2017 PSYCHIATRIC PROGRESS NOTE This is a late entry of 05/19/2017 covers elements not covered in my initial note of 05/19/2017. I met with the patient in the evening of 05/19/2017. HISTORY OF PRESENT ILLNES: The patient slept 5 hours previous evening. Appetite is little better, drank some Boost, received Ativan Intensol due to anxiety and we will increase the BuSpar from 5 mg 3 times a day to 4 times a day to help with anxiety. No CV, , pulmonary, eye system symptoms on review. Reliability is poor. MENTAL STATUS EXAM: Oriented to herself. Insight, judgment, recent and remote memory, attention, concentration, fund of knowledge poor, consistent with her diagnosis mentioned in my initial note. PLAN: Continue current psychotropics with the increase of BuSpar. Rest unchanged for now. MAN Leandro KO MD DR: [email or web address]/luz JOB#: [id number] / [id number]
[2017-05-21 06:11] VITALS: BP 126/60
[2017-05-21 07:52] LABS: BASO % 0 % (0-3); EOS # 0.3 x10^3/uL (0.0-0.7); EOS % 8 % (0-3); HEMATOCRIT 35.8 % (36.0-47.0); HEMOGLOBIN 12.1 g/dL (12.0-15.5); LYMPH # 1.6 x10^3/uL (1.0-4.8); LYMPH % 37 % (24-48); MEAN CORPUSCULAR HEMOGLOBIN 32 pg (25-35); MEAN CORPUSCULAR HGB CONC 34 g/dL (31-37); MEAN CORPUSCULAR VOLUME 94 fL (79-100); MONO # 0.4 x10^3/uL (0.0-1.1); MONO % 10 % (0-9); NEUT % 46 % (31-73); PLATELET COUNT 193 x10^3/uL (140-400); RED BLOOD COUNT 3.82 x10^6/uL (3.50-5.40); RED CELL DISTRIBUTION WIDTH 14.8 % (11.5-14.5); WHITE BLOOD COUNT 4.3 x10^3/uL (4.0-11.0)
[2017-05-21 08:10] LABS: ALBUMIN 3.4 g/dL (3.4-5.0); ALK PHOS 90 U/L (46-116); ALT (SGPT) 27 U/L (14-59); ANION GAP 5 (6-14); AST (SGOT) 21 U/L (15-37); BLOOD UREA NITROGEN 30 mg/dL (7-20); BUN/CREATININE RATIO 38 (6-20); CALCIUM 9.2 mg/dL (8.5-10.1); CARBON DIOXIDE 30 mmol/L (21-32); CHLORIDE 109 mmol/L (98-107); CREATININE 0.8 mg/dL (0.6-1.0); GLUCOSE 85 mg/dL (70-99); MAGNESIUM 2.4 mg/dL (1.8-2.4); POTASSIUM 4.5 mmol/L (3.5-5.1); SODIUM 144 mmol/L (136-145); TOTAL BILIRUBIN 0.2 mg/dL (0.2-1.0); TOTAL PROTEIN 6.8 g/dL (6.4-8.2)
[2017-05-21 08:14] LABS: VAL ACID 38 mcg/mL (50-100)
[2017-05-21] MEDS: busPIRone 5 MG TABLET. PO SCH ×3 (08:20→17:10)
[2017-05-21] MEDS: PHENYTOIN SODIUM EXTENDED 100 MG CAPSULE PO SCH ×2 (08:20→19:16)
[2017-05-21] MEDS: LACTOBACILLUS RHAMNOSUS GG 1 CAPSULE. PO SCH ×2 (08:20→19:15)
[2017-05-21] MEDS: SERTRALINE 100 MG TABLET. PO SCH (08:20)
[2017-05-21] MEDS: SENNOSIDES/DOCUSATE 8.6/50MG TABLET. PO SCH ×2 (08:20→19:15)
[2017-05-21] MEDS: CYANOCOBALAMIN (VITAMIN B-12) 250 MCG TABLET PO SCH (08:20)
[2017-05-21] MEDS: DIVALPROEX 125 MG CAP.SPRINK PO SCH ×3 (08:21→19:16)
[2017-05-21] MEDS: ASPIRIN 81 MG TAB.CHEW PO SCH (08:21)
[2017-05-21] MEDS: POTASSIUM CHLORIDE 20 MEQ TABLET.ER. PO SCH (08:21)
[2017-05-21 16:36] VITALS: BP 106/66
[2017-05-21] MEDS: MIRTAZAPINE 15 MG TABLET PO SCH (19:16)
--- NOTE | 2017-05-21 20:53 | PDOC ---
Exam Note: Dane Note: Please also refer to the separate dictated note~for this date of service dictated separately.~Patient seen individually. Discussed the patient with Nursing staff reviewed the chart.~Reviewed interim history and current functioning. Reviewed vital signs,~Labs/ Radiology~and current medications noted below. Continue current treatment with the changes noted in the dictated addendum note Assessment: Vital Signs: Vital Signs Date Time Temp Pulse Resp B/P (MAP) Pulse Ox O2 Delivery O2 Flow Rate FiO2 05/21/17 16:36 97.3 88 24 106/66 (79) 100 05/17/17 16:33 Room Air I&O Intake and Output 05/21/17 07:00 Intake Total 820 ml Balance 820 ml Intake Oral 820 ml # Voids 1 # Bowel Movements 1 Labs: Laboratory Tests Test 05/21/17 07:34 White Blood Count 4.3 x10^3/uL (4.0-11.0) Red Blood Count 3.82 x10^6/uL (3.50-5.40) Hemoglobin 12.1 g/dL (12.0-15.5) Hematocrit 35.8 % (36.0-47.0) L Mean Corpuscular Volume 94 fL (79-100) Mean Corpuscular Hemoglobin 32 pg (25-35) Mean Corpuscular Hemoglobin Concent 34 g/dL (31-37) Red Cell Distribution Width 14.8 % (11.5-14.5) H Platelet Count 193 x10^3/uL (140-400) Neutrophils (%) (Auto) 46 % (31-73) Lymphocytes (%) (Auto) 37 % (24-48) Monocytes (%) (Auto) 10 % (0-9) H Eosinophils (%) (Auto) 8 % (0-3) H Basophils (%) (Auto) 0 % (0-3) Neutrophils # (Auto) 2.0 x10^3uL (1.8-7.7) Lymphocytes # (Auto) 1.6 x10^3/uL (1.0-4.8) Monocytes # (Auto) 0.4 x10^3/uL (0.0-1.1) Eosinophils # (Auto) 0.3 x10^3/uL (0.0-0.7) Basophils # (Auto) 0.0 x10^3/uL (0.0-0.2) Sodium Level 144 mmol/L (136-145) Potassium Level 4.5 mmol/L (3.5-5.1) Chloride Level 109 mmol/L (98-107) H Carbon Dioxide Level 30 mmol/L (21-32) Anion Gap 5 (6-14) L Blood Urea Nitrogen 30 mg/dL (7-20) H Creatinine 0.8 mg/dL (0.6-1.0) Estimated GFR (Cockcroft-Gault) 68.0 BUN/Creatinine Ratio 38 (6-20) H Glucose Level 85 mg/dL (70-99) Calcium Level 9.2 mg/dL (8.5-10.1) Magnesium Level 2.4 mg/dL (1.8-2.4) Total Bilirubin 0.2 mg/dL (0.2-1.0) Aspartate Amino Transferase (AST) 21 U/L (15-37) Alanine Aminotransferase (ALT) 27 U/L (14-59) Alkaline Phosphatase 90 U/L (46-116) Total Protein 6.8 g/dL (6.4-8.2) Albumin 3.4 g/dL (3.4-5.0) Albumin/Globulin Ratio 1.0 (1.0-1.7) Valproic Acid Level 38 mcg/mL (50-100) L Valproic Acid Last Dose Date 05/20/17 Valproic Acid Last Dose Time 2100 Current Medications: Meds: Current Medications Diphtheria/ Tetanus/Acell Pertussis (Boostrix) 0.5 ml ONCE ONCE VAX IM Last administered on 05/01/17at 22:36; Start 05/01/17 at 19:15; Stop 05/01/17 at 19:16 ; Status DC Lorazepam (Ativan) 2 mg 1X ONCE IM Last administered on 05/01/17at 19:45; Start 05/01/17 at 19:45; Stop 05/01/17 at 19:46; Status DC Diphenhydramine HCl (Benadryl) 50 mg 1X ONCE IM Last administered on at 19:45; Start 05/01/17 at 19:45; Stop 05/01/17 at 19:46; Status DC Diphenhydramine HCl (Benadryl) 50 mg STK-MED ONCE .ROUTE ; Start 05/01/17 at 19: 36; Stop 05/01/17 at 19:37; Status DC Lorazepam (Ativan) 1 mg STK-MED ONCE .ROUTE ; Start 05/01/17 at 19:38; Stop at 19:39; Status DC Midazolam HCl (Versed) 2 mg 1X ONCE IV ; Start 05/01/17 at 20:30; Stop at 20:31; Status DC Midazolam HCl (Versed) 5 mg STK-MED ONCE .ROUTE ; Start 05/01/17 at 20:25; Stop 05/01/17 at 20:26; Status DC Midazolam HCl (Versed) 5 mg 1X ONCE NS Last administered on 05/01/17at 20:40; Start 05/01/17 at 21:00; Stop 05/01/17 at 21:01; Status DC Ceftriaxone Sodium (Rocephin Im) 1 gm 1X ONCE IM Last administered on at 22:36; Start 05/01/17 at 21:15; Stop 05/01/17 at 21:16; Status DC Enoxaparin Sodium (Lovenox 60mg Syringe) 50 mg 1X ONCE SQ ; Start 05/01/17 at 21:45; Stop 05/01/17 at 21:45; Status DC Enoxaparin Sodium (Lovenox) 55 mg BID SQ ; Start 05/02/17 at 09:00; Stop at 09:00; Status DC Enoxaparin Sodium (Lovenox 60mg Syringe) 55 mg 1X ONCE SQ Last administered on 05/01/17at 22:35; Start 05/01/17 at 21:45; Stop 05/01/17 at 21:46; Status DC Iohexol (Omnipaque 300 Mg/ml) 75 ml 1X ONCE IV Last administered on 05/01/17at 22:11; Start 05/01/17 at 22:00; Stop 05/01/17 at 22:01; Status DC Midazolam HCl (Versed) 5 mg 1X ONCE IV ; Start 05/01/17 at 22:15; Stop at 22:18; Status DC Midazolam HCl (Versed) 1 mg 1X ONCE IV Last administered on 05/01/17at 22:30; Start 05/01/17 at 23:00; Stop 05/01/17 at 23:02; Status DC Cephalexin HCl (Keflex) 500 mg TID PO Last administered on 05/03/17 20:27; Start 05/02/17 at 09:00; Stop 05/03/17 at 22:41; Status DC Alprazolam (Xanax) 0.25 mg QID PO Last administered on 05/02/17at 17:32; Start 05/02/17 at 09:00; Stop 05/02/17 at 19:27; Status DC Divalproex Sodium (Depakote Sprinkles) 125 mg BID92 PO Last administered on 05/11 14:05; Start 05/02/17 at 09:00; Stop 05/11/17 at 18:42; Status DC Divalproex Sodium (Depakote Sprinkles) 500 mg QHS PO Last administered on 19:41; Start 05/02/17 at 21:00; Stop 05/07/17 at 18:37; Status DC Lorazepam (Ativan) 0.5 mg PRN Q4HRS PRN PO ANXIETY / AGITATION Last administered on 05/20/17at 15:53; Start 05/02/17 at 01:00 Lorazepam (Ativan Intensol) 0.5 mg PRN Q4HRS PRN PO ANXIETY / AGITATION Last administered on 05/19/17at 15:55; Start 05/02/17 at 01:00 Olanzapine (ZyPREXA ZYDIS) 5 mg QHS PO Last administered on 05/07/17at 20:07; Start 05/02/17 at 21:00; Stop 05/08/17 at 19:10; Status DC Sertraline HCl (Zoloft) 100 mg DAILY PO Last administered on 05/21/17at 08:20; Start 05/02/17 at 09:00 Levofloxacin (Levaquin) 500 mg DAILY06 PO Last administered on 05/02/17at 08:53 ; Start 05/02/17 at 07:30; Stop 05/02/17 at 10:36; Status DC Lactobacillus Rhamnosus (Culturelle) 1 cap BID PO Last administered on at 19:15; Start 05/02/17 at 09:00 Levofloxacin (Levaquin) 250 mg DAILY06 PO Last administered on 05/06/17at 07:45 ; Start 05/03/17 at 06:00; Stop 05/06/17 at 18:15; Status DC Alprazolam (Xanax) 0.25 mg TID PO Last administered on 05/06/17at 14:25; Start 05/02/17 at 21:00; Stop 05/06/17 at 20:59; Status DC Alprazolam (Xanax) 0.25 mg BID PO Last administered on 05/09/17at 19:50; Start at 21:00; Stop 05/10/17 at 08:59; Status DC Alprazolam (Xanax) 0.25 mg DAILY PO Last administered on 05/13/17at 08:21; Start 05/10/17 at 09:00; Stop 05/14/17 at 08:59; Status DC Mirtazapine (Remeron) 7.5 mg QHS PO Last administered on 05/02/17at 19:59; Start 05/02/17 at 21:00; Stop 05/03/17 at 19:31; Status DC Acetaminophen (Tylenol) 650 mg PRN Q6HRS PRN PO PAIN; Start 05/02/17 at 19:30 Aspirin (Children'S Aspirin) 81 mg DAILY PO Last administered on 05/21/17at 08: 21; Start 05/03/17 at 09:00 Cyanocobalamin (Vitamin B-12) 250 mcg DAILY PO Last administered on 05/21/17at 08:20; Start 05/03/17 at 09:00 Al Hydroxide/Mg Hydroxide (Mylanta Plus Xs) 15 ml PRN AFTMEALHC PRN PO DYSPEPSIA; Start 05/02/17 at 19:30 Multi-Ingredient Ointment (Analgesic Ora) 1 beck PRN QID PRN TP MUSCLE PAIN; Start 05/02/17 at 19:30 Phenytoin Sodium (Dilantin) 100 mg BID PO Last administered on 05/21/17at 19:16 ; Start 05/02/17 at 21:00 Senna/Docusate Sodium (Senna Plus) 1 tab BID PO Last administered on 05/21/17at 19:15; Start 05/02/17 at 21:00 Magnesium Hydroxide (Milk Of Magnesia) 2,400 mg PRN QHS PRN PO CONSTIPATION Last administered on 05/20/17 11:56; Start 05/02/17 at 19:45 Potassium Chloride (Klor-Con) 20 meq DAILYWBKFT PO Last administered on 08:21; Start 05/03/17 at 08:00 Neomycin/ Polymyxin/ Bacitracin (Triple Antibiotic Ointment) 1 pkt BID TP Last administered on 05/08/17 08:51; Start 05/03/17 at 21:00; Stop 05/08/17 at 20:59; Status DC Mirtazapine (Remeron) 15 mg QHS PO Last administered on 05/21/17 19:16; Start 05/03/17 at 21:00 Trazodone HCl (Desyrel) 50 mg PRN QHS PRN PO SLEEP Last administered on 01:56; Start 05/03/17 at 19:30; Stop 05/16/17 at 18:59; Status DC Alprazolam (Xanax) 0.25 mg 1X ONCE PO Last administered on 05/05/17at 09:36; Start 05/05/17 at 10:00; Stop 05/05/17 at 10:01; Status DC Buspirone HCl (Buspar) 5 mg TID@0900,1300,1700 PO Last administered on at 16:43; Start 05/06/17 at 09:00; Stop 05/06/17 at 18:23; Status DC Buspirone HCl (Buspar) 5 mg BID@1300,1700 PO Last administered on 05/09/17 14: 08; Start 05/07/17 at 13:00; Stop 05/09/17 at 18:34; Status DC Buspirone HCl (Buspar) 10 mg DAILY PO Last administered on 05/08/17 08:49; Start 05/07/17 at 09:00; Stop 05/08/17 at 19:10; Status DC Divalproex Sodium (Depakote Sprinkles) 750 mg QHS PO Last administered on 19:16; Start 05/07/17 at 21:00 Olanzapine (ZyPREXA ZYDIS) 2.5 mg QHS PO Last administered on 05/09/17at 19:48; Start 05/08/17 at 21:00; Stop 05/09/17 at 21:00; Status DC Divalproex Sodium (Depakote Sprinkles) 250 mg BID92 PO Last administered on at 14:12; Start 05/12/17 at 09:00 Buspirone HCl (Buspar) 5 mg BID@0900,1300 PO Last administered on 05/18/17at 13: 00; Start 05/15/17 at 13:00; Stop 05/18/17 at 15:50; Status DC Trazodone HCl (Desyrel) 50 mg PRN QHS PRN PO INSOMNIA, MAY REPEAT X1 Last administered on 05/18/17at 20:41; Start 05/16/17 at 19:00 Buspirone HCl (Buspar) 5 mg TID PO Last administered on 05/19/17at 13:50; Start 05/18/17 at 21:00; Stop 05/19/17 at 18:46; Status DC Buspirone HCl (Buspar) 5 mg [id number] PO Last administered on 05/21/17at 12:43; Start 05/19/17 at 21:00; Stop 05/21/17 at 14:16; Status DC Buspirone HCl (Buspar) 5 mg BID@0900,1700 PO Last administered on 05/21/17at 17: 10; Start 05/21/17 at 17:00 Buspirone HCl (Buspar) 10 mg DAILY@1300 PO ; Start 05/22/17 at 13:00 Active Scripts Active Reported Klor-Con (Potassium Chloride) 20 Meq Packet 20 Meq PO DAILY Xanax (Alprazolam) 0.25 Mg Tablet 0.25 Mg PO QID Zoloft (Sertraline Hcl) 100 Mg Tablet 100 Mg PO DAILY Lorazepam Intensol (Lorazepam) 2 Mg/1 Ml Oral.conc 0.5 Mg PO PRN Q4HRS PRN Senna S Tablet (Sennosides/Docusate Sodium) 1 Each Tablet 1 Tab PO BID Depakote Sprinkle (Divalproex Sodium) 125 Mg Cap.sprink 500 Mg PO QHS Depakote Sprinkle (Divalproex Sodium) 125 Mg Cap.sprink 125 Mg PO BID92 Tylenol (Acetaminophen) 325 Mg Tablet 650 Mg PO PRN Q6HRS PRN Olanzapine Odt (Olanzapine) 5 Mg Tab.rapdis 5 Mg PO QHS Analgesic Ora (Methyl Salicylate/Menthol) 28 Gm Oint...g. 1 Beck TP PRN QID PRN Maalox Maximum Strength Susp (Mag Hydrox/Al Hydrox/Simeth) 355 Ml Oral.susp 15 Ml PO PRN AFTMEALHC PRN Milk Of Magnesia (Magnesium Hydroxide) 2,400 Mg/10 Ml Oral.susp 2,400 Mg PO PRN QHS PRN Vitamin B-12 (Cyanocobalamin (Vitamin B-12)) 1,000 Mcg Tablet 250 Mcg PO DAILY Lorazepam 0.5 Mg Tablet 0.5 Mg PO PRN Q4HRS PRN Dilantin (Phenytoin Sodium Extended) 100 Mg Capsule 100 Mg PO BID Aspirin 81 Mg Tab.chew 81 Mg PO DAILY I have reviewed the current psychotropics carefully including drug interactions. Risk benefit ratio favors no change other than as noted in my dictated progress note. Diagnosis: Problems: (1) Dementia with behavioral disturbance (2) Anxiety disorder (3) Dementia in Alzheimer's disease with delusions (4) Dementia in Alzheimer's disease with depression (5) Dementia, vascular, with delusions (6) Dementia, vascular, with depression (7) Impulse control disorder NAKIA KO MD May 21, 2017 20:53
[2017-05-22 06:26] VITALS: BP 120/54
[2017-05-22] MEDS: ASPIRIN 81 MG TAB.CHEW PO SCH (08:32)
[2017-05-22] MEDS: SENNOSIDES/DOCUSATE 8.6/50MG TABLET. PO SCH ×2 (08:32→19:58)
[2017-05-22] MEDS: busPIRone 5 MG TABLET. PO SCH ×2 (08:32→16:54)
[2017-05-22] MEDS: PHENYTOIN SODIUM EXTENDED 100 MG CAPSULE PO SCH ×2 (08:32→19:57)
[2017-05-22] MEDS: CYANOCOBALAMIN (VITAMIN B-12) 250 MCG TABLET PO SCH (08:32)
[2017-05-22] MEDS: POTASSIUM CHLORIDE 20 MEQ TABLET.ER. PO SCH (08:32)
[2017-05-22] MEDS: SERTRALINE 100 MG TABLET. PO SCH (08:32)
[2017-05-22] MEDS: LACTOBACILLUS RHAMNOSUS GG 1 CAPSULE. PO SCH ×2 (08:32→19:57)
[2017-05-22] MEDS: DIVALPROEX 125 MG CAP.SPRINK PO SCH ×3 (08:33→19:57)
[2017-05-22] MEDS: busPIRone 10 MG TABLET. PO SCH (12:32)
[2017-05-22] MEDS: LORazepam 0.5 MG TABLET PO PRN (16:15)
[2017-05-22 16:34] VITALS: BP 122/58
[2017-05-22] MEDS: MIRTAZAPINE 15 MG TABLET PO SCH (19:58)
--- NOTE | 2017-05-22 20:37 | PDOC ---
Exam Note: Dane Note: Please also refer to the separate dictated note~for this date of service dictated separately.~Patient seen individually. Discussed the patient with Nursing staff reviewed the chart.~Reviewed interim history and current functioning. Reviewed vital signs,~Labs/ Radiology~and current medications noted below. Continue current treatment with the changes noted in the dictated addendum note Assessment: Vital Signs: Vital Signs Date Time Temp Pulse Resp B/P (MAP) Pulse Ox O2 Delivery O2 Flow Rate FiO2 05/22/17 16:34 98.1 67 18 122/58 (79) 98 Room Air I&O Intake and Output 05/22/17 07:00 Intake Total 1080 ml Balance 1080 ml Intake Oral 1080 ml # Voids 1 Current Medications: Meds: Current Medications Diphtheria/ Tetanus/Acell Pertussis (Boostrix) 0.5 ml ONCE ONCE VAX IM Last administered on 05/01/17at 22:36; Start 05/01/17 at 19:15; Stop 05/01/17 at 19:16 ; Status DC Lorazepam (Ativan) 2 mg 1X ONCE IM Last administered on 05/01/17at 19:45; Start 05/01/17 at 19:45; Stop 05/01/17 at 19:46; Status DC Diphenhydramine HCl (Benadryl) 50 mg 1X ONCE IM Last administered on at 19:45; Start 05/01/17 at 19:45; Stop 05/01/17 at 19:46; Status DC Diphenhydramine HCl (Benadryl) 50 mg STK-MED ONCE .ROUTE ; Start 05/01/17 at 19: 36; Stop 05/01/17 at 19:37; Status DC Lorazepam (Ativan) 1 mg STK-MED ONCE .ROUTE ; Start 05/01/17 at 19:38; Stop at 19:39; Status DC Midazolam HCl (Versed) 2 mg 1X ONCE IV ; Start 05/01/17 at 20:30; Stop at 20:31; Status DC Midazolam HCl (Versed) 5 mg STK-MED ONCE .ROUTE ; Start 05/01/17 at 20:25; Stop 05/01/17 at 20:26; Status DC Midazolam HCl (Versed) 5 mg 1X ONCE NS Last administered on 05/01/17at 20:40; Start 05/01/17 at 21:00; Stop 05/01/17 at 21:01; Status DC Ceftriaxone Sodium (Rocephin Im) 1 gm 1X ONCE IM Last administered on at 22:36; Start 05/01/17 at 21:15; Stop 05/01/17 at 21:16; Status DC Enoxaparin Sodium (Lovenox 60mg Syringe) 50 mg 1X ONCE SQ ; Start 05/01/17 at 21:45; Stop 05/01/17 at 21:45; Status DC Enoxaparin Sodium (Lovenox) 55 mg BID SQ ; Start 05/02/17 at 09:00; Stop at 09:00; Status DC Enoxaparin Sodium (Lovenox 60mg Syringe) 55 mg 1X ONCE SQ Last administered on 05/01/17at 22:35; Start 05/01/17 at 21:45; Stop 05/01/17 at 21:46; Status DC Iohexol (Omnipaque 300 Mg/ml) 75 ml 1X ONCE IV Last administered on 05/01/17at 22:11; Start 05/01/17 at 22:00; Stop 05/01/17 at 22:01; Status DC Midazolam HCl (Versed) 5 mg 1X ONCE IV ; Start 05/01/17 at 22:15; Stop at 22:18; Status DC Midazolam HCl (Versed) 1 mg 1X ONCE IV Last administered on 05/01/17at 22:30; Start 05/01/17 at 23:00; Stop 05/01/17 at 23:02; Status DC Cephalexin HCl (Keflex) 500 mg TID PO Last administered on 05/03/17at 20:27; Start 05/02/17 at 09:00; Stop 05/03/17 at 22:41; Status DC Alprazolam (Xanax) 0.25 mg QID PO Last administered on 05/02/17at 17:32; Start 05/02/17 at 09:00; Stop 05/02/17 at 19:27; Status DC Divalproex Sodium (Depakote Sprinkles) 125 mg BID92 PO Last administered on 05/11at 14:05; Start 05/02/17 at 09:00; Stop 05/11/17 at 18:42; Status DC Divalproex Sodium (Depakote Sprinkles) 500 mg QHS PO Last administered on at 19:41; Start 05/02/17 at 21:00; Stop 05/07/17 at 18:37; Status DC Lorazepam (Ativan) 0.5 mg PRN Q4HRS PRN PO ANXIETY / AGITATION Last administered on 05/22/17 16:15; Start 05/02/17 at 01:00 Lorazepam (Ativan Intensol) 0.5 mg PRN Q4HRS PRN PO ANXIETY / AGITATION Last administered on 05/19/17at 15:55; Start 05/02/17 at 01:00 Olanzapine (ZyPREXA ZYDIS) 5 mg QHS PO Last administered on 05/07/17at 20:07; Start 05/02/17 at 21:00; Stop 05/08/17 at 19:10; Status DC Sertraline HCl (Zoloft) 100 mg DAILY PO Last administered on 05/22/17at 08:32; Start 05/02/17 at 09:00 Levofloxacin (Levaquin) 500 mg DAILY06 PO Last administered on 05/02/17at 08:53 ; Start 05/02/17 at 07:30; Stop 05/02/17 at 10:36; Status DC Lactobacillus Rhamnosus (Culturelle) 1 cap BID PO Last administered on at 19:57; Start 05/02/17 at 09:00 Levofloxacin (Levaquin) 250 mg DAILY06 PO Last administered on 05/06/17at 07:45 ; Start 05/03/17 at 06:00; Stop 05/06/17 at 18:15; Status DC Alprazolam (Xanax) 0.25 mg TID PO Last administered on 05/06/17at 14:25; Start 05/02/17 at 21:00; Stop 05/06/17 at 20:59; Status DC Alprazolam (Xanax) 0.25 mg BID PO Last administered on 05/09/17at 19:50; Start at 21:00; Stop 05/10/17 at 08:59; Status DC Alprazolam (Xanax) 0.25 mg DAILY PO Last administered on 05/13/17 08:21; Start 05/10/17 at 09:00; Stop 05/14/17 at 08:59; Status DC Mirtazapine (Remeron) 7.5 mg QHS PO Last administered on 05/02/17 19:59; Start 05/02/17 at 21:00; Stop 05/03/17 at 19:31; Status DC Acetaminophen (Tylenol) 650 mg PRN Q6HRS PRN PO PAIN; Start 05/02/17 at 19:30 Aspirin (Children'S Aspirin) 81 mg DAILY PO Last administered on 05/22/17 08: 32; Start 05/03/17 at 09:00 Cyanocobalamin (Vitamin B-12) 250 mcg DAILY PO Last administered on 05/22/17 08:32; Start 05/03/17 at 09:00 Al Hydroxide/Mg Hydroxide (Mylanta Plus Xs) 15 ml PRN AFTMEALHC PRN PO DYSPEPSIA; Start 05/02/17 at 19:30 Multi-Ingredient Ointment (Analgesic Victoria) 1 beck PRN QID PRN TP MUSCLE PAIN; Start 05/02/17 at 19:30 Phenytoin Sodium (Dilantin) 100 mg BID PO Last administered on 05/22/17 19:57 ; Start 05/02/17 at 21:00 Senna/Docusate Sodium (Senna Plus) 1 tab BID PO Last administered on 05/22/17 19:58; Start 05/02/17 at 21:00 Magnesium Hydroxide (Milk Of Magnesia) 2,400 mg PRN QHS PRN PO CONSTIPATION Last administered on 05/20/17at 11:56; Start 05/02/17 at 19:45 Potassium Chloride (Klor-Con) 20 meq DAILYWBKFT PO Last administered on 08:32; Start 05/03/17 at 08:00 Neomycin/ Polymyxin/ Bacitracin (Triple Antibiotic Ointment) 1 pkt BID TP Last administered on 05/08/17 08:51; Start 05/03/17 at 21:00; Stop 05/08/17 at 20:59; Status DC Mirtazapine (Remeron) 15 mg QHS PO Last administered on 05/22/17 19:58; Start 05/03/17 at 21:00 Trazodone HCl (Desyrel) 50 mg PRN QHS PRN PO SLEEP Last administered on at 01:56; Start 05/03/17 at 19:30; Stop 05/16/17 at 18:59; Status DC Alprazolam (Xanax) 0.25 mg 1X ONCE PO Last administered on 05/05/17at 09:36; Start 05/05/17 at 10:00; Stop 05/05/17 at 10:01; Status DC Buspirone HCl (Buspar) 5 mg TID@0900,1300,1700 PO Last administered on at 16:43; Start 05/06/17 at 09:00; Stop 05/06/17 at 18:23; Status DC Buspirone HCl (Buspar) 5 mg BID@1300,1700 PO Last administered on 05/09/17at 14: 08; Start 05/07/17 at 13:00; Stop 05/09/17 at 18:34; Status DC Buspirone HCl (Buspar) 10 mg DAILY PO Last administered on 05/08/17at 08:49; Start 05/07/17 at 09:00; Stop 05/08/17 at 19:10; Status DC Divalproex Sodium (Depakote Sprinkles) 750 mg QHS PO Last administered on at 19:57; Start 05/07/17 at 21:00 Olanzapine (ZyPREXA ZYDIS) 2.5 mg QHS PO Last administered on 05/09/17at 19:48; Start 05/08/17 at 21:00; Stop 05/09/17 at 21:00; Status DC Divalproex Sodium (Depakote Sprinkles) 250 mg [id number] PO Last administered on at 14:17; Start 05/12/17 at 09:00 Buspirone HCl (Buspar) 5 mg BID@0900,1300 PO Last administered on 05/18/17at 13: 00; Start 05/15/17 at 13:00; Stop 05/18/17 at 15:50; Status DC Trazodone HCl (Desyrel) 50 mg PRN QHS PRN PO INSOMNIA, MAY REPEAT X1 Last administered on 05/18/17at 20:41; Start 05/16/17 at 19:00 Buspirone HCl (Buspar) 5 mg TID PO Last administered on 05/19/17at 13:50; Start 05/18/17 at 21:00; Stop 05/19/17 at 18:46; Status DC Buspirone HCl (Buspar) 5 mg [id number] PO Last administered on 05/21/17at 12:43; Start 05/19/17 at 21:00; Stop 05/21/17 at 14:16; Status DC Buspirone HCl (Buspar) 5 mg BID@0900,1700 PO Last administered on 05/22/17at 16: 54; Start 05/21/17 at 17:00 Buspirone HCl (Buspar) 10 mg DAILY@1300 PO Last administered on 05/22/17at 12:32 ; Start 05/22/17 at 13:00 Active Scripts Active Reported Klor-Con (Potassium Chloride) 20 Meq Packet 20 Meq PO DAILY Xanax (Alprazolam) 0.25 Mg Tablet 0.25 Mg PO QID Zoloft (Sertraline Hcl) 100 Mg Tablet 100 Mg PO DAILY Lorazepam Intensol (Lorazepam) 2 Mg/1 Ml Oral.conc 0.5 Mg PO PRN Q4HRS PRN Senna S Tablet (Sennosides/Docusate Sodium) 1 Each Tablet 1 Tab PO BID Depakote Sprinkle (Divalproex Sodium) 125 Mg Cap.sprink 500 Mg PO QHS Depakote Sprinkle (Divalproex Sodium) 125 Mg Cap.sprink 125 Mg PO BID92 Tylenol (Acetaminophen) 325 Mg Tablet 650 Mg PO PRN Q6HRS PRN Olanzapine Odt (Olanzapine) 5 Mg Tab.rapdis 5 Mg PO QHS Analgesic Victoria (Methyl Salicylate/Menthol) 28 Gm Oint...g. 1 Beck TP PRN QID PRN Maalox Maximum Strength Susp (Mag Hydrox/Al Hydrox/Simeth) 355 Ml Oral.susp 15 Ml PO PRN AFTMEALHC PRN Milk Of Magnesia (Magnesium Hydroxide) 2,400 Mg/10 Ml Oral.susp 2,400 Mg PO PRN QHS PRN Vitamin B-12 (Cyanocobalamin (Vitamin B-12)) 1,000 Mcg Tablet 250 Mcg PO DAILY Lorazepam 0.5 Mg Tablet 0.5 Mg PO PRN Q4HRS PRN Dilantin (Phenytoin Sodium Extended) 100 Mg Capsule 100 Mg PO BID Aspirin 81 Mg Tab.chew 81 Mg PO DAILY I have reviewed the current psychotropics carefully including drug interactions. Risk benefit ratio favors no change other than as noted in my dictated progress note. Diagnosis: Problems: (1) Hypernatremia (2) Metabolic encephalopathy (3) Breakthrough seizure (4) Dementia with behavioral disturbance (5) Anxiety disorder (6) Dementia in Alzheimer's disease with delusions (7) Dementia in Alzheimer's disease with depression (8) Dementia, vascular, with delusions (9) Dementia, vascular, with depression (10) Impulse control disorder NAKIA KO MD May 22, 2017 20:37
--- NOTE | 2017-05-23 00:17 | PN ---
DATE: 05/20/2017 This late entry 05/20/2017 covers elements not covered in my initial note 05/20/2017. Met with the patient in the evening of 05/20/2017. The patient remains confused, somewhat less anxious, ambulates on her own. No CV, , pulmonary, eye, ENT system symptoms on review. Takes her meds hidden. Reliability poor. MENTAL STATUS EXAM: Oriented to herself. Insight, judgment, recent and remote memory, attention, concentration, fund of knowledge poor, consistent with her diagnosis mentioned in my initial note. PLAN: Continue current psychotropics, may need to increase BuSpar gradually. NAKIA KO MD DR: [email or web address] JOB#: [id number] / [id number]
[2017-05-23 06:11] VITALS: BP 118/41
[2017-05-23] MEDS: SENNOSIDES/DOCUSATE 8.6/50MG TABLET. PO SCH ×2 (07:24→20:08)
[2017-05-23] MEDS: CYANOCOBALAMIN (VITAMIN B-12) 250 MCG TABLET PO SCH (07:24)
[2017-05-23] MEDS: ASPIRIN 81 MG TAB.CHEW PO SCH (07:25)
[2017-05-23] MEDS: POTASSIUM CHLORIDE 20 MEQ TABLET.ER. PO SCH (07:25)
[2017-05-23] MEDS: DIVALPROEX 125 MG CAP.SPRINK PO SCH ×3 (07:25→20:07)
[2017-05-23] MEDS: LACTOBACILLUS RHAMNOSUS GG 1 CAPSULE. PO SCH ×2 (07:25→20:07)
[2017-05-23] MEDS: busPIRone 5 MG TABLET. PO SCH ×2 (07:25→17:50)
[2017-05-23] MEDS: SERTRALINE 100 MG TABLET. PO SCH (07:25)
[2017-05-23] MEDS: PHENYTOIN SODIUM EXTENDED 100 MG CAPSULE PO SCH ×2 (07:25→20:08)
[2017-05-23] MEDS: busPIRone 10 MG TABLET. PO SCH (12:41)
[2017-05-23 16:13] VITALS: BP 107/49
[2017-05-23] MEDS: MIRTAZAPINE 15 MG TABLET PO SCH (20:08)
[2017-05-23] MEDS: LORazepam 0.5 MG TABLET PO PRN (20:22)
--- NOTE | 2017-05-23 20:43 | PDOC ---
Exam Note: Dane Note: Please also refer to the separate dictated note~for this date of service dictated separately.~Patient seen individually. Discussed the patient with Nursing staff reviewed the chart.~Reviewed interim history and current functioning. Reviewed vital signs,~Labs/ Radiology~and current medications noted below. Continue current treatment with the changes noted in the dictated addendum note Assessment: Vital Signs: Vital Signs Date Time Temp Pulse Resp B/P (MAP) Pulse Ox O2 Delivery O2 Flow Rate FiO2 05/23/17 16:13 98.1 67 16 107/49 (68) 99 05/22/17 16:34 Room Air I&O Intake and Output 05/23/17 07:00 Intake Total 720 ml Balance 720 ml Intake Oral 720 ml # Voids 1 Current Medications: Meds: Current Medications Diphtheria/ Tetanus/Acell Pertussis (Boostrix) 0.5 ml ONCE ONCE VAX IM Last administered on 05/01/17at 22:36; Start 05/01/17 at 19:15; Stop 05/01/17 at 19:16 ; Status DC Lorazepam (Ativan) 2 mg 1X ONCE IM Last administered on 05/01/17at 19:45; Start 05/01/17 at 19:45; Stop 05/01/17 at 19:46; Status DC Diphenhydramine HCl (Benadryl) 50 mg 1X ONCE IM Last administered on at 19:45; Start 05/01/17 at 19:45; Stop 05/01/17 at 19:46; Status DC Diphenhydramine HCl (Benadryl) 50 mg STK-MED ONCE .ROUTE ; Start 05/01/17 at 19: 36; Stop 05/01/17 at 19:37; Status DC Lorazepam (Ativan) 1 mg STK-MED ONCE .ROUTE ; Start 05/01/17 at 19:38; Stop at 19:39; Status DC Midazolam HCl (Versed) 2 mg 1X ONCE IV ; Start 05/01/17 at 20:30; Stop at 20:31; Status DC Midazolam HCl (Versed) 5 mg STK-MED ONCE .ROUTE ; Start 05/01/17 at 20:25; Stop 05/01/17 at 20:26; Status DC Midazolam HCl (Versed) 5 mg 1X ONCE NS Last administered on 05/01/17at 20:40; Start 05/01/17 at 21:00; Stop 05/01/17 at 21:01; Status DC Ceftriaxone Sodium (Rocephin Im) 1 gm 1X ONCE IM Last administered on at 22:36; Start 05/01/17 at 21:15; Stop 05/01/17 at 21:16; Status DC Enoxaparin Sodium (Lovenox 60mg Syringe) 50 mg 1X ONCE SQ ; Start 05/01/17 at 21:45; Stop 05/01/17 at 21:45; Status DC Enoxaparin Sodium (Lovenox) 55 mg BID SQ ; Start 05/02/17 at 09:00; Stop at 09:00; Status DC Enoxaparin Sodium (Lovenox 60mg Syringe) 55 mg 1X ONCE SQ Last administered on 05/01/17at 22:35; Start 05/01/17 at 21:45; Stop 05/01/17 at 21:46; Status DC Iohexol (Omnipaque 300 Mg/ml) 75 ml 1X ONCE IV Last administered on 05/01/17at 22:11; Start 05/01/17 at 22:00; Stop 05/01/17 at 22:01; Status DC Midazolam HCl (Versed) 5 mg 1X ONCE IV ; Start 05/01/17 at 22:15; Stop at 22:18; Status DC Midazolam HCl (Versed) 1 mg 1X ONCE IV Last administered on 05/01/17at 22:30; Start 05/01/17 at 23:00; Stop 05/01/17 at 23:02; Status DC Cephalexin HCl (Keflex) 500 mg TID PO Last administered on 05/03/17at 20:27; Start 05/02/17 at 09:00; Stop 05/03/17 at 22:41; Status DC Alprazolam (Xanax) 0.25 mg QID PO Last administered on 05/02/17at 17:32; Start 05/02/17 at 09:00; Stop 05/02/17 at 19:27; Status DC Divalproex Sodium (Depakote Sprinkles) 125 mg BID92 PO Last administered on 05/11at 14:05; Start 05/02/17 at 09:00; Stop 05/11/17 at 18:42; Status DC Divalproex Sodium (Depakote Sprinkles) 500 mg QHS PO Last administered on at 19:41; Start 05/02/17 at 21:00; Stop 05/07/17 at 18:37; Status DC Lorazepam (Ativan) 0.5 mg PRN Q4HRS PRN PO ANXIETY / AGITATION Last administered on 05/23/17at 20:22; Start 05/02/17 at 01:00 Lorazepam (Ativan Intensol) 0.5 mg PRN Q4HRS PRN PO ANXIETY / AGITATION Last administered on 05/19/17at 15:55; Start 05/02/17 at 01:00 Olanzapine (ZyPREXA ZYDIS) 5 mg QHS PO Last administered on 05/07/17at 20:07; Start 05/02/17 at 21:00; Stop 05/08/17 at 19:10; Status DC Sertraline HCl (Zoloft) 100 mg DAILY PO Last administered on 05/23/17at 07:25; Start 05/02/17 at 09:00 Levofloxacin (Levaquin) 500 mg DAILY06 PO Last administered on 05/02/17at 08:53 ; Start 05/02/17 at 07:30; Stop 05/02/17 at 10:36; Status DC Lactobacillus Rhamnosus (Culturelle) 1 cap BID PO Last administered on at 20:07; Start 05/02/17 at 09:00 Levofloxacin (Levaquin) 250 mg DAILY06 PO Last administered on 05/06/17at 07:45 ; Start 05/03/17 at 06:00; Stop 05/06/17 at 18:15; Status DC Alprazolam (Xanax) 0.25 mg TID PO Last administered on 05/06/17at 14:25; Start 05/02/17 at 21:00; Stop 05/06/17 at 20:59; Status DC Alprazolam (Xanax) 0.25 mg BID PO Last administered on 05/09/17at 19:50; Start at 21:00; Stop 05/10/17 at 08:59; Status DC Alprazolam (Xanax) 0.25 mg DAILY PO Last administered on 05/13/17 08:21; Start 05/10/17 at 09:00; Stop 05/14/17 at 08:59; Status DC Mirtazapine (Remeron) 7.5 mg QHS PO Last administered on 05/02/17 19:59; Start 05/02/17 at 21:00; Stop 05/03/17 at 19:31; Status DC Acetaminophen (Tylenol) 650 mg PRN Q6HRS PRN PO PAIN; Start 05/02/17 at 19:30 Aspirin (Children'S Aspirin) 81 mg DAILY PO Last administered on 05/23/17 07: 25; Start 05/03/17 at 09:00 Cyanocobalamin (Vitamin B-12) 250 mcg DAILY PO Last administered on 05/23/17 07:24; Start 05/03/17 at 09:00 Al Hydroxide/Mg Hydroxide (Mylanta Plus Xs) 15 ml PRN AFTMEALHC PRN PO DYSPEPSIA; Start 05/02/17 at 19:30 Multi-Ingredient Ointment (Analgesic [place]) 1 beck PRN QID PRN TP MUSCLE PAIN; Start 05/02/17 at 19:30 Phenytoin Sodium (Dilantin) 100 mg BID PO Last administered on 05/23/17 20:08 ; Start 05/02/17 at 21:00 Senna/Docusate Sodium (Senna Plus) 1 tab BID PO Last administered on 05/23/17at 20:08; Start 05/02/17 at 21:00 Magnesium Hydroxide (Milk Of Magnesia) 2,400 mg PRN QHS PRN PO CONSTIPATION Last administered on 05/20/17at 11:56; Start 05/02/17 at 19:45 Potassium Chloride (Klor-Con) 20 meq DAILYWBKFT PO Last administered on 07:25; Start 05/03/17 at 08:00 Neomycin/ Polymyxin/ Bacitracin (Triple Antibiotic Ointment) 1 pkt BID TP Last administered on 05/08/17 08:51; Start 05/03/17 at 21:00; Stop 05/08/17 at 20:59; Status DC Mirtazapine (Remeron) 15 mg QHS PO Last administered on 3/16/18at 20:08; Start 05/03/17 at 21:00 Trazodone HCl (Desyrel) 50 mg PRN QHS PRN PO SLEEP Last administered on at 01:56; Start 05/03/17 at 19:30; Stop 05/16/17 at 18:59; Status DC Alprazolam (Xanax) 0.25 mg 1X ONCE PO Last administered on 05/05/17at 09:36; Start 05/05/17 at 10:00; Stop 05/05/17 at 10:01; Status DC Buspirone HCl (Buspar) 5 mg TID@0900,1300,1700 PO Last administered on at 16:43; Start 05/06/17 at 09:00; Stop 05/06/17 at 18:23; Status DC Buspirone HCl (Buspar) 5 mg BID@1300,1700 PO Last administered on 05/09/17 14: 08; Start 05/07/17 at 13:00; Stop 05/09/17 at 18:34; Status DC Buspirone HCl (Buspar) 10 mg DAILY PO Last administered on 05/08/17at 08:49; Start 05/07/17 at 09:00; Stop 05/08/17 at 19:10; Status DC Divalproex Sodium (Depakote Sprinkles) 750 mg QHS PO Last administered on at 20:07; Start 05/07/17 at 21:00 Olanzapine (ZyPREXA ZYDIS) 2.5 mg QHS PO Last administered on 05/09/17at 19:48; Start 05/08/17 at 21:00; Stop 05/09/17 at 21:00; Status DC Divalproex Sodium (Depakote Sprinkles) 250 mg BID92 PO Last administered on at 12:41; Start 05/12/17 at 09:00 Buspirone HCl (Buspar) 5 mg BID@0900,1300 PO Last administered on 05/18/17at 13: 00; Start 05/15/17 at 13:00; Stop 05/18/17 at 15:50; Status DC Trazodone HCl (Desyrel) 50 mg PRN QHS PRN PO INSOMNIA, MAY REPEAT X1 Last administered on 05/18/17at 20:41; Start 05/16/17 at 19:00 Buspirone HCl (Buspar) 5 mg TID PO Last administered on 05/19/17at 13:50; Start 05/18/17 at 21:00; Stop 05/19/17 at 18:46; Status DC Buspirone HCl (Buspar) 5 mg [id number] PO Last administered on 05/21/17at 12:43; Start 05/19/17 at 21:00; Stop 05/21/17 at 14:16; Status DC Buspirone HCl (Buspar) 5 mg BID@0900,1700 PO Last administered on 05/23/17at 17: 50; Start 05/21/17 at 17:00 Buspirone HCl (Buspar) 10 mg DAILY@1300 PO Last administered on 05/23/17at 12:41 ; Start 05/22/17 at 13:00 Active Scripts Active Reported Klor-Con (Potassium Chloride) 20 Meq Packet 20 Meq PO DAILY Xanax (Alprazolam) 0.25 Mg Tablet 0.25 Mg PO QID Zoloft (Sertraline Hcl) 100 Mg Tablet 100 Mg PO DAILY Lorazepam Intensol (Lorazepam) 2 Mg/1 Ml Oral.conc 0.5 Mg PO PRN Q4HRS PRN Senna S Tablet (Sennosides/Docusate Sodium) 1 Each Tablet 1 Tab PO BID Depakote Sprinkle (Divalproex Sodium) 125 Mg Cap.sprink 500 Mg PO QHS Depakote Sprinkle (Divalproex Sodium) 125 Mg Cap.sprink 125 Mg PO BID92 Tylenol (Acetaminophen) 325 Mg Tablet 650 Mg PO PRN Q6HRS PRN Olanzapine Odt (Olanzapine) 5 Mg Tab.rapdis 5 Mg PO QHS Analgesic [place] (Methyl Salicylate/Menthol) 28 Gm Oint...g. 1 Beck TP PRN QID PRN Maalox Maximum Strength Susp (Mag Hydrox/Al Hydrox/Simeth) 355 Ml Oral.susp 15 Ml PO PRN AFTMEALHC PRN Milk Of Magnesia (Magnesium Hydroxide) 2,400 Mg/10 Ml Oral.susp 2,400 Mg PO PRN QHS PRN Vitamin B-12 (Cyanocobalamin (Vitamin B-12)) 1,000 Mcg Tablet 250 Mcg PO DAILY Lorazepam 0.5 Mg Tablet 0.5 Mg PO PRN Q4HRS PRN Dilantin (Phenytoin Sodium Extended) 100 Mg Capsule 100 Mg PO BID Aspirin 81 Mg Tab.chew 81 Mg PO DAILY I have reviewed the current psychotropics carefully including drug interactions. Risk benefit ratio favors no change other than as noted in my dictated progress note. Diagnosis: Problems: (1) Breakthrough seizure (2) Dementia with behavioral disturbance (3) Anxiety disorder (4) Dementia in Alzheimer's disease with delusions (5) Dementia in Alzheimer's disease with depression (6) Dementia, vascular, with delusions (7) Dementia, vascular, with depression (8) Impulse control disorder NAKIA KO MD May 23, 2017 20:43
--- NOTE | 2017-05-24 04:14 | PN ---
DATE: 05/21/2017 This late entry 05/21/2017 covers elements not covered in my initial 05/21/2017. Met with the patient evening of 05/21/2017. The patient remains anxious, restless, but better than before. REVIEW OF SYSTEMS: No CV, , pulmonary, eye, ENT system symptoms on review. Reliability poor. MENTAL STATUS EXAM: Oriented to herself. Insight, judgment, recent and remote memory, attention, concentration, fund of knowledge poor, consistent with her diagnosis mentioned in my initial note. PLAN: Increase BuSpar from 5 mg 4 times a day to 5 mg at 9:00 a.m., 5:00 p.m., 10 mg at 1:00 p.m., to help the afternoon increased anxiety. Rest unchanged for now. MAN XiaoJaspreet KO MD DR: LUCRECIA/luz JOB#: [id number] / [id number]
[2017-05-24 06:20] VITALS: BP 123/43
[2017-05-24] MEDS: busPIRone 5 MG TABLET. PO SCH (07:52)
[2017-05-24] MEDS: DIVALPROEX 125 MG CAP.SPRINK PO SCH ×3 (07:52→20:16)
[2017-05-24] MEDS: ASPIRIN 81 MG TAB.CHEW PO SCH (07:52)
[2017-05-24] MEDS: POTASSIUM CHLORIDE 20 MEQ TABLET.ER. PO SCH (07:52)
[2017-05-24] MEDS: LACTOBACILLUS RHAMNOSUS GG 1 CAPSULE. PO SCH ×2 (07:52→20:17)
[2017-05-24] MEDS: PHENYTOIN SODIUM EXTENDED 100 MG CAPSULE PO SCH ×2 (07:52→20:17)
[2017-05-24] MEDS: SERTRALINE 100 MG TABLET. PO SCH (07:52)
[2017-05-24] MEDS: SENNOSIDES/DOCUSATE 8.6/50MG TABLET. PO SCH ×2 (07:52→20:16)
[2017-05-24] MEDS: CYANOCOBALAMIN (VITAMIN B-12) 250 MCG TABLET PO SCH (07:53)
[2017-05-24] MEDS: busPIRone 10 MG TABLET. PO SCH ×2 (13:00→17:00)
[2017-05-24 16:12] VITALS: BP 117/61
[2017-05-24] MEDS: LORazepam 0.5 MG TABLET PO PRN (17:45)
[2017-05-24] MEDS: MIRTAZAPINE 15 MG TABLET PO SCH (20:17)
[2017-05-24] MEDS: traZODone 50 MG TABLET. PO PRN (22:40)
--- NOTE | 2017-05-24 22:56 | PDOC ---
Exam Note: Dane Note: Please also refer to the separate dictated note~for this date of service dictated separately.~Patient seen individually. Discussed the patient with Nursing staff reviewed the chart.~Reviewed interim history and current functioning. Reviewed vital signs,~Labs/ Radiology~and current medications noted below. Continue current treatment with the changes noted in the dictated addendum note Assessment: Vital Signs: Vital Signs Date Time Temp Pulse Resp B/P (MAP) Pulse Ox O2 Delivery O2 Flow Rate FiO2 05/24/17 16:12 97.2 76 18 117/61 (79) 94 05/22/17 16:34 Room Air I&O Intake and Output 05/24/17 07:00 Intake Total 600 ml Balance 600 ml Intake Oral 600 ml # Bowel Movements 1 Current Medications: Meds: Current Medications Diphtheria/ Tetanus/Acell Pertussis (Boostrix) 0.5 ml ONCE ONCE VAX IM Last administered on 05/01/17at 22:36; Start 05/01/17 at 19:15; Stop 05/01/17 at 19:16 ; Status DC Lorazepam (Ativan) 2 mg 1X ONCE IM Last administered on 05/01/17at 19:45; Start 05/01/17 at 19:45; Stop 05/01/17 at 19:46; Status DC Diphenhydramine HCl (Benadryl) 50 mg 1X ONCE IM Last administered on at 19:45; Start 05/01/17 at 19:45; Stop 05/01/17 at 19:46; Status DC Diphenhydramine HCl (Benadryl) 50 mg STK-MED ONCE .ROUTE ; Start 05/01/17 at 19: 36; Stop 05/01/17 at 19:37; Status DC Lorazepam (Ativan) 1 mg STK-MED ONCE .ROUTE ; Start 05/01/17 at 19:38; Stop at 19:39; Status DC Midazolam HCl (Versed) 2 mg 1X ONCE IV ; Start 05/01/17 at 20:30; Stop at 20:31; Status DC Midazolam HCl (Versed) 5 mg STK-MED ONCE .ROUTE ; Start 05/01/17 at 20:25; Stop 05/01/17 at 20:26; Status DC Midazolam HCl (Versed) 5 mg 1X ONCE NS Last administered on 05/01/17at 20:40; Start 05/01/17 at 21:00; Stop 05/01/17 at 21:01; Status DC Ceftriaxone Sodium (Rocephin Im) 1 gm 1X ONCE IM Last administered on at 22:36; Start 05/01/17 at 21:15; Stop 05/01/17 at 21:16; Status DC Enoxaparin Sodium (Lovenox 60mg Syringe) 50 mg 1X ONCE SQ ; Start 05/01/17 at 21:45; Stop 05/01/17 at 21:45; Status DC Enoxaparin Sodium (Lovenox) 55 mg BID SQ ; Start 05/02/17 at 09:00; Stop at 09:00; Status DC Enoxaparin Sodium (Lovenox 60mg Syringe) 55 mg 1X ONCE SQ Last administered on 05/01/17at 22:35; Start 05/01/17 at 21:45; Stop 05/01/17 at 21:46; Status DC Iohexol (Omnipaque 300 Mg/ml) 75 ml 1X ONCE IV Last administered on 05/01/17at 22:11; Start 05/01/17 at 22:00; Stop 05/01/17 at 22:01; Status DC Midazolam HCl (Versed) 5 mg 1X ONCE IV ; Start 05/01/17 at 22:15; Stop at 22:18; Status DC Midazolam HCl (Versed) 1 mg 1X ONCE IV Last administered on 05/01/17at 22:30; Start 05/01/17 at 23:00; Stop 05/01/17 at 23:02; Status DC Cephalexin HCl (Keflex) 500 mg TID PO Last administered on 05/03/17at 20:27; Start 05/02/17 at 09:00; Stop 05/03/17 at 22:41; Status DC Alprazolam (Xanax) 0.25 mg QID PO Last administered on 05/02/17at 17:32; Start 05/02/17 at 09:00; Stop 05/02/17 at 19:27; Status DC Divalproex Sodium (Depakote Sprinkles) 125 mg BID92 PO Last administered on 05/11at 14:05; Start 05/02/17 at 09:00; Stop 05/11/17 at 18:42; Status DC Divalproex Sodium (Depakote Sprinkles) 500 mg QHS PO Last administered on at 19:41; Start 05/02/17 at 21:00; Stop 05/07/17 at 18:37; Status DC Lorazepam (Ativan) 0.5 mg PRN Q4HRS PRN PO ANXIETY / AGITATION Last administered on 05/24/17at 17:45; Start 05/02/17 at 01:00 Lorazepam (Ativan Intensol) 0.5 mg PRN Q4HRS PRN PO ANXIETY / AGITATION Last administered on 05/19/17at 15:55; Start 05/02/17 at 01:00 Olanzapine (ZyPREXA ZYDIS) 5 mg QHS PO Last administered on 05/07/17at 20:07; Start 05/02/17 at 21:00; Stop 05/08/17 at 19:10; Status DC Sertraline HCl (Zoloft) 100 mg DAILY PO Last administered on 05/24/17at 07:52; Start 05/02/17 at 09:00 Levofloxacin (Levaquin) 500 mg DAILY06 PO Last administered on 05/02/17at 08:53 ; Start 05/02/17 at 07:30; Stop 05/02/17 at 10:36; Status DC Lactobacillus Rhamnosus (Culturelle) 1 cap BID PO Last administered on at 20:17; Start 05/02/17 at 09:00 Levofloxacin (Levaquin) 250 mg DAILY06 PO Last administered on 05/06/17at 07:45 ; Start 05/03/17 at 06:00; Stop 05/06/17 at 18:15; Status DC Alprazolam (Xanax) 0.25 mg TID PO Last administered on 05/06/17at 14:25; Start 05/02/17 at 21:00; Stop 05/06/17 at 20:59; Status DC Alprazolam (Xanax) 0.25 mg BID PO Last administered on 05/09/17at 19:50; Start at 21:00; Stop 05/10/17 at 08:59; Status DC Alprazolam (Xanax) 0.25 mg DAILY PO Last administered on 05/13/17 08:21; Start 05/10/17 at 09:00; Stop 05/14/17 at 08:59; Status DC Mirtazapine (Remeron) 7.5 mg QHS PO Last administered on 05/02/17 19:59; Start 05/02/17 at 21:00; Stop 05/03/17 at 19:31; Status DC Acetaminophen (Tylenol) 650 mg PRN Q6HRS PRN PO PAIN; Start 05/02/17 at 19:30 Aspirin (Children'S Aspirin) 81 mg DAILY PO Last administered on 05/24/17at 07: 52; Start 05/03/17 at 09:00 Cyanocobalamin (Vitamin B-12) 250 mcg DAILY PO Last administered on 05/24/17at 07:53; Start 05/03/17 at 09:00 Al Hydroxide/Mg Hydroxide (Mylanta Plus Xs) 15 ml PRN AFTMEALHC PRN PO DYSPEPSIA; Start 05/02/17 at 19:30 Multi-Ingredient Ointment (Analgesic [place]) 1 beck PRN QID PRN TP MUSCLE PAIN; Start 05/02/17 at 19:30 Phenytoin Sodium (Dilantin) 100 mg BID PO Last administered on 05/24/17at 20:17 ; Start 05/02/17 at 21:00 Senna/Docusate Sodium (Senna Plus) 1 tab BID PO Last administered on 05/24/17at 20:16; Start 05/02/17 at 21:00 Magnesium Hydroxide (Milk Of Magnesia) 2,400 mg PRN QHS PRN PO CONSTIPATION Last administered on 05/20/17at 11:56; Start 05/02/17 at 19:45 Potassium Chloride (Klor-Con) 20 meq DAILYWBKFT PO Last administered on at 07:52; Start 05/03/17 at 08:00 Neomycin/ Polymyxin/ Bacitracin (Triple Antibiotic Ointment) 1 pkt BID TP Last administered on 05/08/17at 08:51; Start 05/03/17 at 21:00; Stop 05/08/17 at 20:59; Status DC Mirtazapine (Remeron) 15 mg QHS PO Last administered on 3/17/18at 20:17; Start 05/03/17 at 21:00 Trazodone HCl (Desyrel) 50 mg PRN QHS PRN PO SLEEP Last administered on at 01:56; Start 05/03/17 at 19:30; Stop 05/16/17 at 18:59; Status DC Alprazolam (Xanax) 0.25 mg 1X ONCE PO Last administered on 05/05/17at 09:36; Start 05/05/17 at 10:00; Stop 05/05/17 at 10:01; Status DC Buspirone HCl (Buspar) 5 mg TID@0900,1300,1700 PO Last administered on at 16:43; Start 05/06/17 at 09:00; Stop 05/06/17 at 18:23; Status DC Buspirone HCl (Buspar) 5 mg BID@1300,1700 PO Last administered on 05/09/17 14: 08; Start 05/07/17 at 13:00; Stop 05/09/17 at 18:34; Status DC Buspirone HCl (Buspar) 10 mg DAILY PO Last administered on 05/08/17at 08:49; Start 05/07/17 at 09:00; Stop 05/08/17 at 19:10; Status DC Divalproex Sodium (Depakote Sprinkles) 750 mg QHS PO Last administered on at 20:16; Start 05/07/17 at 21:00 Olanzapine (ZyPREXA ZYDIS) 2.5 mg QHS PO Last administered on 05/09/17at 19:48; Start 05/08/17 at 21:00; Stop 05/09/17 at 21:00; Status DC Divalproex Sodium (Depakote Sprinkles) 250 mg BID92 PO Last administered on at 13:38; Start 05/12/17 at 09:00 Buspirone HCl (Buspar) 5 mg BID@0900,1300 PO Last administered on 05/18/17at 13: 00; Start 05/15/17 at 13:00; Stop 05/18/17 at 15:50; Status DC Trazodone HCl (Desyrel) 50 mg PRN QHS PRN PO INSOMNIA, MAY REPEAT X1 Last administered on 05/24/17at 22:40; Start 05/16/17 at 19:00 Buspirone HCl (Buspar) 5 mg TID PO Last administered on 05/19/17at 13:50; Start 05/18/17 at 21:00; Stop 05/19/17 at 18:46; Status DC Buspirone HCl (Buspar) 5 mg [id number] PO Last administered on 05/21/17at 12:43; Start 05/19/17 at 21:00; Stop 05/21/17 at 14:16; Status DC Buspirone HCl (Buspar) 5 mg BID@0900,1700 PO Last administered on 05/24/17at 07: 52; Start 05/21/17 at 17:00; Stop 05/24/17 at 16:26; Status DC Buspirone HCl (Buspar) 10 mg DAILY@1300 PO Last administered on 05/24/17at 13:00 ; Start 05/22/17 at 13:00; Stop 05/24/17 at 16:26; Status DC Buspirone HCl (Buspar) 10 mg DAILY@0900,1300,1700 PO Last administered on at 17:00; Start 05/24/17 at 17:00 Active Scripts Active Reported Klor-Con (Potassium Chloride) 20 Meq Packet 20 Meq PO DAILY Xanax (Alprazolam) 0.25 Mg Tablet 0.25 Mg PO QID Zoloft (Sertraline Hcl) 100 Mg Tablet 100 Mg PO DAILY Lorazepam Intensol (Lorazepam) 2 Mg/1 Ml Oral.conc 0.5 Mg PO PRN Q4HRS PRN Senna S Tablet (Sennosides/Docusate Sodium) 1 Each Tablet 1 Tab PO BID Depakote Sprinkle (Divalproex Sodium) 125 Mg Cap.sprink 500 Mg PO QHS Depakote Sprinkle (Divalproex Sodium) 125 Mg Cap.sprink 125 Mg PO BID92 Tylenol (Acetaminophen) 325 Mg Tablet 650 Mg PO PRN Q6HRS PRN Olanzapine Odt (Olanzapine) 5 Mg Tab.rapdis 5 Mg PO QHS Analgesic [place] (Methyl Salicylate/Menthol) 28 Gm Oint...g. 1 Beck TP PRN QID PRN Maalox Maximum Strength Susp (Mag Hydrox/Al Hydrox/Simeth) 355 Ml Oral.susp 15 Ml PO PRN AFTMEALHC PRN Milk Of Magnesia (Magnesium Hydroxide) 2,400 Mg/10 Ml Oral.susp 2,400 Mg PO PRN QHS PRN Vitamin B-12 (Cyanocobalamin (Vitamin B-12)) 1,000 Mcg Tablet 250 Mcg PO DAILY Lorazepam 0.5 Mg Tablet 0.5 Mg PO PRN Q4HRS PRN Dilantin (Phenytoin Sodium Extended) 100 Mg Capsule 100 Mg PO BID Aspirin 81 Mg Tab.chew 81 Mg PO DAILY I have reviewed the current psychotropics carefully including drug interactions. Risk benefit ratio favors no change other than as noted in my dictated progress note. Diagnosis: Problems: (1) Hypernatremia (2) Metabolic encephalopathy (3) Breakthrough seizure (4) Dementia with behavioral disturbance (5) Anxiety disorder (6) Dementia in Alzheimer's disease with delusions (7) Dementia in Alzheimer's disease with depression (8) Dementia, vascular, with delusions (9) Dementia, vascular, with depression (10) Impulse control disorder NAKIA KO MD May 24, 2017 22:56
--- NOTE | 2017-05-25 00:08 | PN ---
DATE: 05/22/2017 PSYCHIATRIC PROGRESS NOTE This is a late entry for 05/22/2017, covers elements not covered in my initial note of 05/22/2017. SUBJECTIVE: The patient was staffed at a treatment team meeting in the morning with her daughter, Agata attending. Lengthy discussion about progress. Had discussions with Dr. Camacho about psychotropics. Daughter is convinced that much of the patient's agitation is secondary to her anxiety and wants the BuSpar adjusted as she can. The patient was agitated at 4:00 p.m., received Ativan, did well previous evening, slept 7-1/4 hours, takes medications in pudding. REVIEW OF SYSTEMS: Appetite is better. No CV, , pulmonary, eye system symptoms on review. Gait unsteady. Reliability poor. MENTAL STATUS EXAM: Oriented to herself. Insight, judgment, recent and remote memory, attention, concentration, fund of knowledge poor, consistent with her diagnosis mentioned in my initial note. PLAN: Continue current psychotropics, may need to increase the BuSpar in due course. MAN Leandro KO MD DR: LUCRECIA/luz JOB#: [id number] / [id number]
[2017-05-25 06:11] VITALS: BP 109/54
--- NOTE | 2017-05-25 07:54 | PN ---
DATE: 05/23/2017 This late entry, 05/23/2017, covers elements not covered in my initial note of 05/23/2017. SUBJECTIVE: I met with the patient the evening of 05/23/2017. The patient slept 7-1/2 hours previous evening, anxious, restless at times, just the day before trying to climb over the fence in the backyard, remains anxious. REVIEW OF SYSTEMS: No CV, , pulmonary, eye, ENT system symptoms on review. Reliability poor. MENTAL STATUS EXAM: Oriented to herself. Insight, judgment, recent and remote memory, attention, concentration, fund of knowledge poor, consistent with her diagnosis mentioned in my initial note. PLAN: Continue current psychotropics. Adjust as clinically indicated. BuSpar was increased. MAN Leandro KO MD DR: LUCRECIA/luz JOB#: [id number] / [id number]
[2017-05-25] MEDS: CYANOCOBALAMIN (VITAMIN B-12) 250 MCG TABLET PO SCH (08:10)
[2017-05-25] MEDS: ASPIRIN 81 MG TAB.CHEW PO SCH (08:10)
[2017-05-25] MEDS: busPIRone 10 MG TABLET. PO SCH ×3 (08:10→17:00)
[2017-05-25] MEDS: LACTOBACILLUS RHAMNOSUS GG 1 CAPSULE. PO SCH ×2 (08:10→19:40)
[2017-05-25] MEDS: PHENYTOIN SODIUM EXTENDED 100 MG CAPSULE PO SCH ×2 (08:11→19:40)
[2017-05-25] MEDS: POTASSIUM CHLORIDE 20 MEQ TABLET.ER. PO SCH (08:11)
[2017-05-25] MEDS: SENNOSIDES/DOCUSATE 8.6/50MG TABLET. PO SCH ×2 (08:11→19:40)
[2017-05-25] MEDS: DIVALPROEX 125 MG CAP.SPRINK PO SCH ×3 (08:11→19:40)
[2017-05-25] MEDS: SERTRALINE 100 MG TABLET. PO SCH (08:11)
[2017-05-25] MEDS: LORazepam 0.5 MG TABLET PO PRN (11:14)
[2017-05-25 16:12] VITALS: BP 122/72
[2017-05-25] MEDS: MIRTAZAPINE 15 MG TABLET PO SCH (19:40)
--- NOTE | 2017-05-25 20:54 | PDOC ---
Exam Note: Dane Note: Please also refer to the separate dictated note~for this date of service dictated separately.~Patient seen individually. Discussed the patient with Nursing staff reviewed the chart.~Reviewed interim history and current functioning. Reviewed vital signs,~Labs/ Radiology~and current medications noted below. Continue current treatment with the changes noted in the dictated addendum note Assessment: Vital Signs: Vital Signs Date Time Temp Pulse Resp B/P (MAP) Pulse Ox O2 Delivery O2 Flow Rate FiO2 05/25/17 16:12 97.4 57 16 122/72 (89) 99 05/22/17 16:34 Room Air I&O Intake and Output 05/25/17 07:00 Intake Total 400 ml Balance 400 ml Intake Oral 400 ml Current Medications: Meds: Current Medications Diphtheria/ Tetanus/Acell Pertussis (Boostrix) 0.5 ml ONCE ONCE VAX IM Last administered on 05/01/17at 22:36; Start 05/01/17 at 19:15; Stop 05/01/17 at 19:16 ; Status DC Lorazepam (Ativan) 2 mg 1X ONCE IM Last administered on 05/01/17at 19:45; Start 05/01/17 at 19:45; Stop 05/01/17 at 19:46; Status DC Diphenhydramine HCl (Benadryl) 50 mg 1X ONCE IM Last administered on at 19:45; Start 05/01/17 at 19:45; Stop 05/01/17 at 19:46; Status DC Diphenhydramine HCl (Benadryl) 50 mg STK-MED ONCE .ROUTE ; Start 05/01/17 at 19: 36; Stop 05/01/17 at 19:37; Status DC Lorazepam (Ativan) 1 mg STK-MED ONCE .ROUTE ; Start 05/01/17 at 19:38; Stop at 19:39; Status DC Midazolam HCl (Versed) 2 mg 1X ONCE IV ; Start 05/01/17 at 20:30; Stop at 20:31; Status DC Midazolam HCl (Versed) 5 mg STK-MED ONCE .ROUTE ; Start 05/01/17 at 20:25; Stop 05/01/17 at 20:26; Status DC Midazolam HCl (Versed) 5 mg 1X ONCE NS Last administered on 05/01/17at 20:40; Start 05/01/17 at 21:00; Stop 05/01/17 at 21:01; Status DC Ceftriaxone Sodium (Rocephin Im) 1 gm 1X ONCE IM Last administered on at 22:36; Start 05/01/17 at 21:15; Stop 05/01/17 at 21:16; Status DC Enoxaparin Sodium (Lovenox 60mg Syringe) 50 mg 1X ONCE SQ ; Start 05/01/17 at 21:45; Stop 05/01/17 at 21:45; Status DC Enoxaparin Sodium (Lovenox) 55 mg BID SQ ; Start 05/02/17 at 09:00; Stop at 09:00; Status DC Enoxaparin Sodium (Lovenox 60mg Syringe) 55 mg 1X ONCE SQ Last administered on 05/01/17at 22:35; Start 05/01/17 at 21:45; Stop 05/01/17 at 21:46; Status DC Iohexol (Omnipaque 300 Mg/ml) 75 ml 1X ONCE IV Last administered on 05/01/17at 22:11; Start 05/01/17 at 22:00; Stop 05/01/17 at 22:01; Status DC Midazolam HCl (Versed) 5 mg 1X ONCE IV ; Start 05/01/17 at 22:15; Stop at 22:18; Status DC Midazolam HCl (Versed) 1 mg 1X ONCE IV Last administered on 05/01/17at 22:30; Start 05/01/17 at 23:00; Stop 05/01/17 at 23:02; Status DC Cephalexin HCl (Keflex) 500 mg TID PO Last administered on 05/03/17at 20:27; Start 05/02/17 at 09:00; Stop 05/03/17 at 22:41; Status DC Alprazolam (Xanax) 0.25 mg QID PO Last administered on 05/02/17at 17:32; Start 05/02/17 at 09:00; Stop 05/02/17 at 19:27; Status DC Divalproex Sodium (Depakote Sprinkles) 125 mg BID92 PO Last administered on 05/11at 14:05; Start 05/02/17 at 09:00; Stop 05/11/17 at 18:42; Status DC Divalproex Sodium (Depakote Sprinkles) 500 mg QHS PO Last administered on at 19:41; Start 05/02/17 at 21:00; Stop 05/07/17 at 18:37; Status DC Lorazepam (Ativan) 0.5 mg PRN Q4HRS PRN PO ANXIETY / AGITATION Last administered on 05/25/17at 11:14; Start 05/02/17 at 01:00 Lorazepam (Ativan Intensol) 0.5 mg PRN Q4HRS PRN PO ANXIETY / AGITATION Last administered on 05/19/17at 15:55; Start 05/02/17 at 01:00 Olanzapine (ZyPREXA ZYDIS) 5 mg QHS PO Last administered on 05/07/17at 20:07; Start 05/02/17 at 21:00; Stop 05/08/17 at 19:10; Status DC Sertraline HCl (Zoloft) 100 mg DAILY PO Last administered on 05/25/17at 08:11; Start 05/02/17 at 09:00 Levofloxacin (Levaquin) 500 mg DAILY06 PO Last administered on 05/02/17at 08:53 ; Start 05/02/17 at 07:30; Stop 05/02/17 at 10:36; Status DC Lactobacillus Rhamnosus (Culturelle) 1 cap BID PO Last administered on at 19:40; Start 05/02/17 at 09:00 Levofloxacin (Levaquin) 250 mg DAILY06 PO Last administered on 05/06/17at 07:45 ; Start 05/03/17 at 06:00; Stop 05/06/17 at 18:15; Status DC Alprazolam (Xanax) 0.25 mg TID PO Last administered on 05/06/17at 14:25; Start 05/02/17 at 21:00; Stop 05/06/17 at 20:59; Status DC Alprazolam (Xanax) 0.25 mg BID PO Last administered on 05/09/17at 19:50; Start at 21:00; Stop 05/10/17 at 08:59; Status DC Alprazolam (Xanax) 0.25 mg DAILY PO Last administered on 05/13/17 08:21; Start 05/10/17 at 09:00; Stop 05/14/17 at 08:59; Status DC Mirtazapine (Remeron) 7.5 mg QHS PO Last administered on 05/02/17 19:59; Start 05/02/17 at 21:00; Stop 05/03/17 at 19:31; Status DC Acetaminophen (Tylenol) 650 mg PRN Q6HRS PRN PO PAIN; Start 05/02/17 at 19:30 Aspirin (Children'S Aspirin) 81 mg DAILY PO Last administered on 05/25/17 08: 10; Start 05/03/17 at 09:00 Cyanocobalamin (Vitamin B-12) 250 mcg DAILY PO Last administered on 05/25/17 08:10; Start 05/03/17 at 09:00 Al Hydroxide/Mg Hydroxide (Mylanta Plus Xs) 15 ml PRN AFTMEALHC PRN PO DYSPEPSIA; Start 05/02/17 at 19:30 Multi-Ingredient Ointment (Analgesic [place]) 1 beck PRN QID PRN TP MUSCLE PAIN; Start 05/02/17 at 19:30 Phenytoin Sodium (Dilantin) 100 mg BID PO Last administered on 05/25/17 19:40 ; Start 05/02/17 at 21:00 Senna/Docusate Sodium (Senna Plus) 1 tab BID PO Last administered on 05/25/17 19:40; Start 05/02/17 at 21:00 Magnesium Hydroxide (Milk Of Magnesia) 2,400 mg PRN QHS PRN PO CONSTIPATION Last administered on 05/20/17at 11:56; Start 05/02/17 at 19:45 Potassium Chloride (Klor-Con) 20 meq DAILYWBKFT PO Last administered on 08:11; Start 05/03/17 at 08:00 Neomycin/ Polymyxin/ Bacitracin (Triple Antibiotic Ointment) 1 pkt BID TP Last administered on 05/08/17 08:51; Start 05/03/17 at 21:00; Stop 05/08/17 at 20:59; Status DC Mirtazapine (Remeron) 15 mg QHS PO Last administered on 3/18/18at 19:40; Start 05/03/17 at 21:00 Trazodone HCl (Desyrel) 50 mg PRN QHS PRN PO SLEEP Last administered on at 01:56; Start 05/03/17 at 19:30; Stop 05/16/17 at 18:59; Status DC Alprazolam (Xanax) 0.25 mg 1X ONCE PO Last administered on 05/05/17at 09:36; Start 05/05/17 at 10:00; Stop 05/05/17 at 10:01; Status DC Buspirone HCl (Buspar) 5 mg TID@0900,1300,1700 PO Last administered on at 16:43; Start 05/06/17 at 09:00; Stop 05/06/17 at 18:23; Status DC Buspirone HCl (Buspar) 5 mg BID@1300,1700 PO Last administered on 05/09/17at 14: 08; Start 05/07/17 at 13:00; Stop 05/09/17 at 18:34; Status DC Buspirone HCl (Buspar) 10 mg DAILY PO Last administered on 05/08/17at 08:49; Start 05/07/17 at 09:00; Stop 05/08/17 at 19:10; Status DC Divalproex Sodium (Depakote Sprinkles) 750 mg QHS PO Last administered on at 19:40; Start 05/07/17 at 21:00 Olanzapine (ZyPREXA ZYDIS) 2.5 mg QHS PO Last administered on 05/09/17at 19:48; Start 05/08/17 at 21:00; Stop 05/09/17 at 21:00; Status DC Divalproex Sodium (Depakote Sprinkles) 250 mg BID92 PO Last administered on 13:28; Start 05/12/17 at 09:00 Buspirone HCl (Buspar) 5 mg BID@0900,1300 PO Last administered on 05/18/17at 13: 00; Start 05/15/17 at 13:00; Stop 05/18/17 at 15:50; Status DC Trazodone HCl (Desyrel) 50 mg PRN QHS PRN PO INSOMNIA, MAY REPEAT X1 Last administered on 05/24/17at 22:40; Start 05/16/17 at 19:00 Buspirone HCl (Buspar) 5 mg TID PO Last administered on 05/19/17at 13:50; Start 05/18/17 at 21:00; Stop 05/19/17 at 18:46; Status DC Buspirone HCl (Buspar) 5 mg [id number] PO Last administered on 05/21/17at 12:43; Start 05/19/17 at 21:00; Stop 05/21/17 at 14:16; Status DC Buspirone HCl (Buspar) 5 mg BID@0900,1700 PO Last administered on 05/24/17at 07: 52; Start 05/21/17 at 17:00; Stop 05/24/17 at 16:26; Status DC Buspirone HCl (Buspar) 10 mg DAILY@1300 PO Last administered on 05/24/17at 13:00 ; Start 05/22/17 at 13:00; Stop 05/24/17 at 16:26; Status DC Buspirone HCl (Buspar) 10 mg DAILY@0900,1300,1700 PO Last administered on at 17:00; Start 05/24/17 at 17:00 Active Scripts Active Reported Klor-Con (Potassium Chloride) 20 Meq Packet 20 Meq PO DAILY Xanax (Alprazolam) 0.25 Mg Tablet 0.25 Mg PO QID Zoloft (Sertraline Hcl) 100 Mg Tablet 100 Mg PO DAILY Lorazepam Intensol (Lorazepam) 2 Mg/1 Ml Oral.conc 0.5 Mg PO PRN Q4HRS PRN Senna S Tablet (Sennosides/Docusate Sodium) 1 Each Tablet 1 Tab PO BID Depakote Sprinkle (Divalproex Sodium) 125 Mg Cap.sprink 500 Mg PO QHS Depakote Sprinkle (Divalproex Sodium) 125 Mg Cap.sprink 125 Mg PO BID92 Tylenol (Acetaminophen) 325 Mg Tablet 650 Mg PO PRN Q6HRS PRN Olanzapine Odt (Olanzapine) 5 Mg Tab.rapdis 5 Mg PO QHS Analgesic [place] (Methyl Salicylate/Menthol) 28 Gm Oint...g. 1 Beck TP PRN QID PRN Maalox Maximum Strength Susp (Mag Hydrox/Al Hydrox/Simeth) 355 Ml Oral.susp 15 Ml PO PRN AFTMEALHC PRN Milk Of Magnesia (Magnesium Hydroxide) 2,400 Mg/10 Ml Oral.susp 2,400 Mg PO PRN QHS PRN Vitamin B-12 (Cyanocobalamin (Vitamin B-12)) 1,000 Mcg Tablet 250 Mcg PO DAILY Lorazepam 0.5 Mg Tablet 0.5 Mg PO PRN Q4HRS PRN Dilantin (Phenytoin Sodium Extended) 100 Mg Capsule 100 Mg PO BID Aspirin 81 Mg Tab.chew 81 Mg PO DAILY I have reviewed the current psychotropics carefully including drug interactions. Risk benefit ratio favors no change other than as noted in my dictated progress note. 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
--- NOTE | 2017-05-25 22:38 | PN ---
DATE: 05/24/2017 PSYCHIATRIC PROGRESS NOTE This is a late entry of 05/24/2017 covers elements not covered in my initial note of 05/24/2017. I met with the patient evening of 05/24/2017. The patient slept 8 hours previous evening, somewhat exit seeking, anxious. REVIEW OF SYSTEMS: No CV, , pulmonary, eye, ENT system symptoms on review. Reliability is poor. MENTAL STATUS EXAM: Oriented to herself. Insight, judgment, recent and remote memory, attention, concentration, fund of knowledge poor, consistent with her diagnosis mentioned in my initial note. PLAN: Increase BuSpar from 5 mg b.i.d. and 10 mg at 1300 to 10 mg at 9:00 a.m., 1:00 p.m., 5:00 p.m. Continue rest unchanged. MAN MJaspreet KO MD DR: LUCRECIA/luz JOB#: [id number] / [id number]
[2017-05-26 06:27] VITALS: BP 147/62
[2017-05-26] MEDS: POTASSIUM CHLORIDE 20 MEQ TABLET.ER. PO SCH (08:51)
[2017-05-26] MEDS: PHENYTOIN SODIUM EXTENDED 100 MG CAPSULE PO SCH ×2 (08:51→19:38)
[2017-05-26] MEDS: DIVALPROEX 125 MG CAP.SPRINK PO SCH ×3 (08:51→19:38)
[2017-05-26] MEDS: SENNOSIDES/DOCUSATE 8.6/50MG TABLET. PO SCH ×2 (08:51→19:38)
[2017-05-26] MEDS: SERTRALINE 100 MG TABLET. PO SCH (08:52)
[2017-05-26] MEDS: CYANOCOBALAMIN (VITAMIN B-12) 250 MCG TABLET PO SCH (08:52)
[2017-05-26] MEDS: busPIRone 10 MG TABLET. PO SCH ×3 (08:52→16:43)
[2017-05-26] MEDS: LACTOBACILLUS RHAMNOSUS GG 1 CAPSULE. PO SCH ×2 (08:52→19:38)
[2017-05-26] MEDS: ASPIRIN 81 MG TAB.CHEW PO SCH (08:52)
[2017-05-26] MEDS: LORazepam INTENSOL 2 MG/ML BOTTLE PO PRN (12:18)
[2017-05-26 15:24] VITALS: BP 112/76
[2017-05-26] MEDS: MIRTAZAPINE 15 MG TABLET PO SCH (19:38)
--- NOTE | 2017-05-26 20:45 | PN ---
DATE: 05/25/2017 This is a late entry for 05/25/2017 covers elements not covered in my initial note of 05/25/2017. SUBJECTIVE: I met with the patient evening of 05/25/2017. Overall, the patient has been anxious, received Ativan x 1, still restless, wandering. REVIEW OF SYSTEMS: No CV, , pulmonary, eye, ENT system symptoms on review. Reliability poor. MENTAL STATUS EXAM: Oriented to herself. Insight, judgment, recent and remote memory, attention, concentration, fund of knowledge poor, consistent with her diagnosis mentioned in my initial note. PLAN: Continue current psychotropics, may need to increase BuSpar further in due course. MAN Leandro KO MD DR: LUCRECIA/luz JOB#: [id number] / [id number]
--- NOTE | 2017-05-26 21:04 | PDOC ---
Exam Note: Dane Note: Please also refer to the separate dictated note~for this date of service dictated separately.~Patient seen individually. Discussed the patient with Nursing staff reviewed the chart.~Reviewed interim history and current functioning. Reviewed vital signs,~Labs/ Radiology~and current medications noted below. Continue current treatment with the changes noted in the dictated addendum note Assessment: Vital Signs: Vital Signs Date Time Temp Pulse Resp B/P (MAP) Pulse Ox O2 Delivery O2 Flow Rate FiO2 05/26/17 15:24 97.4 72 20 112/76 (88) 93 Room Air I&O Intake and Output 05/26/17 07:00 Intake Total 600 ml Balance 600 ml Intake Oral 600 ml # Bowel Movements 1 Current Medications: Meds: Current Medications Diphtheria/ Tetanus/Acell Pertussis (Boostrix) 0.5 ml ONCE ONCE VAX IM Last administered on 05/01/17at 22:36; Start 05/01/17 at 19:15; Stop 05/01/17 at 19:16 ; Status DC Lorazepam (Ativan) 2 mg 1X ONCE IM Last administered on 05/01/17at 19:45; Start 05/01/17 at 19:45; Stop 05/01/17 at 19:46; Status DC Diphenhydramine HCl (Benadryl) 50 mg 1X ONCE IM Last administered on at 19:45; Start 05/01/17 at 19:45; Stop 05/01/17 at 19:46; Status DC Diphenhydramine HCl (Benadryl) 50 mg STK-MED ONCE .ROUTE ; Start 05/01/17 at 19: 36; Stop 05/01/17 at 19:37; Status DC Lorazepam (Ativan) 1 mg STK-MED ONCE .ROUTE ; Start 05/01/17 at 19:38; Stop at 19:39; Status DC Midazolam HCl (Versed) 2 mg 1X ONCE IV ; Start 05/01/17 at 20:30; Stop at 20:31; Status DC Midazolam HCl (Versed) 5 mg STK-MED ONCE .ROUTE ; Start 05/01/17 at 20:25; Stop 05/01/17 at 20:26; Status DC Midazolam HCl (Versed) 5 mg 1X ONCE NS Last administered on 05/01/17at 20:40; Start 05/01/17 at 21:00; Stop 05/01/17 at 21:01; Status DC Ceftriaxone Sodium (Rocephin Im) 1 gm 1X ONCE IM Last administered on at 22:36; Start 05/01/17 at 21:15; Stop 05/01/17 at 21:16; Status DC Enoxaparin Sodium (Lovenox 60mg Syringe) 50 mg 1X ONCE SQ ; Start 05/01/17 at 21:45; Stop 05/01/17 at 21:45; Status DC Enoxaparin Sodium (Lovenox) 55 mg BID SQ ; Start 05/02/17 at 09:00; Stop at 09:00; Status DC Enoxaparin Sodium (Lovenox 60mg Syringe) 55 mg 1X ONCE SQ Last administered on 05/01/17at 22:35; Start 05/01/17 at 21:45; Stop 05/01/17 at 21:46; Status DC Iohexol (Omnipaque 300 Mg/ml) 75 ml 1X ONCE IV Last administered on 05/01/17at 22:11; Start 05/01/17 at 22:00; Stop 05/01/17 at 22:01; Status DC Midazolam HCl (Versed) 5 mg 1X ONCE IV ; Start 05/01/17 at 22:15; Stop at 22:18; Status DC Midazolam HCl (Versed) 1 mg 1X ONCE IV Last administered on 05/01/17at 22:30; Start 05/01/17 at 23:00; Stop 05/01/17 at 23:02; Status DC Cephalexin HCl (Keflex) 500 mg TID PO Last administered on 05/03/17at 20:27; Start 05/02/17 at 09:00; Stop 05/03/17 at 22:41; Status DC Alprazolam (Xanax) 0.25 mg QID PO Last administered on 05/02/17at 17:32; Start 05/02/17 at 09:00; Stop 05/02/17 at 19:27; Status DC Divalproex Sodium (Depakote Sprinkles) 125 mg BID92 PO Last administered on 05/11at 14:05; Start 05/02/17 at 09:00; Stop 05/11/17 at 18:42; Status DC Divalproex Sodium (Depakote Sprinkles) 500 mg QHS PO Last administered on at 19:41; Start 05/02/17 at 21:00; Stop 05/07/17 at 18:37; Status DC Lorazepam (Ativan) 0.5 mg PRN Q4HRS PRN PO ANXIETY / AGITATION Last administered on 05/25/17at 11:14; Start 05/02/17 at 01:00 Lorazepam (Ativan Intensol) 0.5 mg PRN Q4HRS PRN PO ANXIETY / AGITATION Last administered on 05/26/17at 12:18; Start 05/02/17 at 01:00 Olanzapine (ZyPREXA ZYDIS) 5 mg QHS PO Last administered on 05/07/17at 20:07; Start 05/02/17 at 21:00; Stop 05/08/17 at 19:10; Status DC Sertraline HCl (Zoloft) 100 mg DAILY PO Last administered on 05/26/17at 08:52; Start 05/02/17 at 09:00 Levofloxacin (Levaquin) 500 mg DAILY06 PO Last administered on 05/02/17at 08:53 ; Start 05/02/17 at 07:30; Stop 05/02/17 at 10:36; Status DC Lactobacillus Rhamnosus (Culturelle) 1 cap BID PO Last administered on at 19:38; Start 05/02/17 at 09:00 Levofloxacin (Levaquin) 250 mg DAILY06 PO Last administered on 05/06/17at 07:45 ; Start 05/03/17 at 06:00; Stop 05/06/17 at 18:15; Status DC Alprazolam (Xanax) 0.25 mg TID PO Last administered on 05/06/17at 14:25; Start 05/02/17 at 21:00; Stop 05/06/17 at 20:59; Status DC Alprazolam (Xanax) 0.25 mg BID PO Last administered on 05/09/17at 19:50; Start at 21:00; Stop 05/10/17 at 08:59; Status DC Alprazolam (Xanax) 0.25 mg DAILY PO Last administered on 05/13/17 08:21; Start 05/10/17 at 09:00; Stop 05/14/17 at 08:59; Status DC Mirtazapine (Remeron) 7.5 mg QHS PO Last administered on 05/02/17 19:59; Start 05/02/17 at 21:00; Stop 05/03/17 at 19:31; Status DC Acetaminophen (Tylenol) 650 mg PRN Q6HRS PRN PO PAIN; Start 05/02/17 at 19:30 Aspirin (Children'S Aspirin) 81 mg DAILY PO Last administered on 05/26/17 08: 52; Start 05/03/17 at 09:00 Cyanocobalamin (Vitamin B-12) 250 mcg DAILY PO Last administered on 05/26/17 08:52; Start 05/03/17 at 09:00 Al Hydroxide/Mg Hydroxide (Mylanta Plus Xs) 15 ml PRN AFTMEALHC PRN PO DYSPEPSIA; Start 05/02/17 at 19:30 Multi-Ingredient Ointment (Analgesic [place]) 1 beck PRN QID PRN TP MUSCLE PAIN; Start 05/02/17 at 19:30 Phenytoin Sodium (Dilantin) 100 mg BID PO Last administered on 05/26/17 19:38 ; Start 05/02/17 at 21:00 Senna/Docusate Sodium (Senna Plus) 1 tab BID PO Last administered on 05/26/17 19:38; Start 05/02/17 at 21:00 Magnesium Hydroxide (Milk Of Magnesia) 2,400 mg PRN QHS PRN PO CONSTIPATION Last administered on 05/20/17at 11:56; Start 05/02/17 at 19:45 Potassium Chloride (Klor-Con) 20 meq DAILYWBKFT PO Last administered on 08:51; Start 05/03/17 at 08:00 Neomycin/ Polymyxin/ Bacitracin (Triple Antibiotic Ointment) 1 pkt BID TP Last administered on 05/08/17 08:51; Start 05/03/17 at 21:00; Stop 05/08/17 at 20:59; Status DC Mirtazapine (Remeron) 15 mg QHS PO Last administered on 05/26/17 19:38; Start 05/03/17 at 21:00 Trazodone HCl (Desyrel) 50 mg PRN QHS PRN PO SLEEP Last administered on at 01:56; Start 05/03/17 at 19:30; Stop 05/16/17 at 18:59; Status DC Alprazolam (Xanax) 0.25 mg 1X ONCE PO Last administered on 05/05/17at 09:36; Start 05/05/17 at 10:00; Stop 05/05/17 at 10:01; Status DC Buspirone HCl (Buspar) 5 mg TID@0900,1300,1700 PO Last administered on at 16:43; Start 05/06/17 at 09:00; Stop 05/06/17 at 18:23; Status DC Buspirone HCl (Buspar) 5 mg BID@1300,1700 PO Last administered on 05/09/17at 14: 08; Start 05/07/17 at 13:00; Stop 05/09/17 at 18:34; Status DC Buspirone HCl (Buspar) 10 mg DAILY PO Last administered on 05/08/17at 08:49; Start 05/07/17 at 09:00; Stop 05/08/17 at 19:10; Status DC Divalproex Sodium (Depakote Sprinkles) 750 mg QHS PO Last administered on at 19:38; Start 05/07/17 at 21:00 Olanzapine (ZyPREXA ZYDIS) 2.5 mg QHS PO Last administered on 05/09/17at 19:48; Start 05/08/17 at 21:00; Stop 05/09/17 at 21:00; Status DC Divalproex Sodium (Depakote Sprinkles) 250 mg [id number] PO Last administered on at 13:37; Start 05/12/17 at 09:00 Buspirone HCl (Buspar) 5 mg BID@0900,1300 PO Last administered on 05/18/17at 13: 00; Start 05/15/17 at 13:00; Stop 05/18/17 at 15:50; Status DC Trazodone HCl (Desyrel) 50 mg PRN QHS PRN PO INSOMNIA, MAY REPEAT X1 Last administered on 05/24/17at 22:40; Start 05/16/17 at 19:00 Buspirone HCl (Buspar) 5 mg TID PO Last administered on 05/19/17at 13:50; Start 05/18/17 at 21:00; Stop 05/19/17 at 18:46; Status DC Buspirone HCl (Buspar) 5 mg [id number] PO Last administered on 05/21/17at 12:43; Start 05/19/17 at 21:00; Stop 05/21/17 at 14:16; Status DC Buspirone HCl (Buspar) 5 mg BID@0900,1700 PO Last administered on 05/24/17at 07: 52; Start 05/21/17 at 17:00; Stop 05/24/17 at 16:26; Status DC Buspirone HCl (Buspar) 10 mg DAILY@1300 PO Last administered on 05/24/17at 13:00 ; Start 05/22/17 at 13:00; Stop 05/24/17 at 16:26; Status DC Buspirone HCl (Buspar) 10 mg DAILY@0900,1300,1700 PO Last administered on at 16:43; Start 05/24/17 at 17:00 Active Scripts Active Reported Klor-Con (Potassium Chloride) 20 Meq Packet 20 Meq PO DAILY Xanax (Alprazolam) 0.25 Mg Tablet 0.25 Mg PO QID Zoloft (Sertraline Hcl) 100 Mg Tablet 100 Mg PO DAILY Lorazepam Intensol (Lorazepam) 2 Mg/1 Ml Oral.conc 0.5 Mg PO PRN Q4HRS PRN Senna S Tablet (Sennosides/Docusate Sodium) 1 Each Tablet 1 Tab PO BID Depakote Sprinkle (Divalproex Sodium) 125 Mg Cap.sprink 500 Mg PO QHS Depakote Sprinkle (Divalproex Sodium) 125 Mg Cap.sprink 125 Mg PO BID92 Tylenol (Acetaminophen) 325 Mg Tablet 650 Mg PO PRN Q6HRS PRN Olanzapine Odt (Olanzapine) 5 Mg Tab.rapdis 5 Mg PO QHS Analgesic [place] (Methyl Salicylate/Menthol) 28 Gm Oint...g. 1 Beck TP PRN QID PRN Maalox Maximum Strength Susp (Mag Hydrox/Al Hydrox/Simeth) 355 Ml Oral.susp 15 Ml PO PRN AFTMEALHC PRN Milk Of Magnesia (Magnesium Hydroxide) 2,400 Mg/10 Ml Oral.susp 2,400 Mg PO PRN QHS PRN Vitamin B-12 (Cyanocobalamin (Vitamin B-12)) 1,000 Mcg Tablet 250 Mcg PO DAILY Lorazepam 0.5 Mg Tablet 0.5 Mg PO PRN Q4HRS PRN Dilantin (Phenytoin Sodium Extended) 100 Mg Capsule 100 Mg PO BID Aspirin 81 Mg Tab.chew 81 Mg PO DAILY I have reviewed the current psychotropics carefully including drug interactions. Risk benefit ratio favors no change other than as noted in my dictated progress note. 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
[2017-05-27 06:12] VITALS: BP 145/74
[2017-05-27 08:03] LABS: BASO % 1 % (0-3); EOS # 0.4 x10^3/uL (0.0-0.7); EOS % 6 % (0-3); HEMATOCRIT 37.9 % (36.0-47.0); HEMOGLOBIN 12.6 g/dL (12.0-15.5); LYMPH # 2.9 x10^3/uL (1.0-4.8); LYMPH % 48 % (24-48); MEAN CORPUSCULAR HEMOGLOBIN 32 pg (25-35); MEAN CORPUSCULAR HGB CONC 33 g/dL (31-37); MEAN CORPUSCULAR VOLUME 95 fL (79-100); MONO # 0.6 x10^3/uL (0.0-1.1); MONO % 10 % (0-9); NEUT # 2.2 x10^3uL (1.8-7.7); NEUT % 36 % (31-73); PLATELET COUNT 176 x10^3/uL (140-400); RED BLOOD COUNT 4.01 x10^6/uL (3.50-5.40); RED CELL DISTRIBUTION WIDTH 15.1 % (11.5-14.5); WHITE BLOOD COUNT 6.1 x10^3/uL (4.0-11.0)
[2017-05-27] MEDS: CYANOCOBALAMIN (VITAMIN B-12) 250 MCG TABLET PO SCH (08:03)
[2017-05-27] MEDS: PHENYTOIN SODIUM EXTENDED 100 MG CAPSULE PO SCH ×2 (08:03→19:35)
[2017-05-27] MEDS: LACTOBACILLUS RHAMNOSUS GG 1 CAPSULE. PO SCH ×2 (08:03→19:35)
[2017-05-27] MEDS: SENNOSIDES/DOCUSATE 8.6/50MG TABLET. PO SCH ×2 (08:03→19:35)
[2017-05-27] MEDS: ASPIRIN 81 MG TAB.CHEW PO SCH (08:03)
[2017-05-27] MEDS: POTASSIUM CHLORIDE 20 MEQ TABLET.ER. PO SCH (08:03)
[2017-05-27] MEDS: busPIRone 10 MG TABLET. PO SCH ×3 (08:03→17:20)
[2017-05-27] MEDS: SERTRALINE 100 MG TABLET. PO SCH (08:04)
[2017-05-27] MEDS: DIVALPROEX 125 MG CAP.SPRINK PO SCH ×3 (08:04→19:35)
[2017-05-27 08:10] LABS: ALBUMIN 3.3 g/dL (3.4-5.0); ALBUMIN/GLOBULIN RATIO 0.9 (1.0-1.7); ALK PHOS 90 U/L (46-116); ALT (SGPT) 34 U/L (14-59); ANION GAP 11 (6-14); AST (SGOT) 27 U/L (15-37); BLOOD UREA NITROGEN 27 mg/dL (7-20); BUN/CREATININE RATIO 34 (6-20); CALCIUM 9.1 mg/dL (8.5-10.1); CARBON DIOXIDE 25 mmol/L (21-32); CHLORIDE 108 mmol/L (98-107); CREATININE 0.8 mg/dL (0.6-1.0); GLUCOSE 108 mg/dL (70-99); MAGNESIUM 2.2 mg/dL (1.8-2.4); POTASSIUM 4.8 mmol/L (3.5-5.1); SODIUM 144 mmol/L (136-145); TOTAL BILIRUBIN 0.3 mg/dL (0.2-1.0); TOTAL PROTEIN 6.8 g/dL (6.4-8.2)
[2017-05-27 08:18] LABS: VAL ACID 34 mcg/mL (50-100)
[2017-05-27] MEDS: LORazepam INTENSOL 2 MG/ML BOTTLE PO PRN (11:26)
[2017-05-27 15:58] VITALS: BP 110/59
[2017-05-27] MEDS: MIRTAZAPINE 15 MG TABLET PO SCH (19:35)
--- NOTE | 2017-05-27 20:52 | PDOC ---
Exam Note: Dane Note: Please also refer to the separate dictated note~for this date of service dictated separately.~Patient seen individually. Discussed the patient with Nursing staff reviewed the chart.~Reviewed interim history and current functioning. Reviewed vital signs,~Labs/ Radiology~and current medications noted below. Continue current treatment with the changes noted in the dictated addendum note Assessment: Vital Signs: Vital Signs Date Time Temp Pulse Resp B/P (MAP) Pulse Ox O2 Delivery O2 Flow Rate FiO2 05/27/17 15:58 98.0 72 18 110/59 (76) 98 05/26/17 15:24 Room Air I&O Intake and Output 05/27/17 07:00 Intake Total 1080 ml Balance 1080 ml Intake Oral 1080 ml # Voids 1 # Bowel Movements 1 Labs: Laboratory Tests Test 05/27/17 07:46 White Blood Count 6.1 x10^3/uL (4.0-11.0) Red Blood Count 4.01 x10^6/uL (3.50-5.40) Hemoglobin 12.6 g/dL (12.0-15.5) Hematocrit 37.9 % (36.0-47.0) Mean Corpuscular Volume 95 fL (79-100) Mean Corpuscular Hemoglobin 32 pg (25-35) Mean Corpuscular Hemoglobin Concent 33 g/dL (31-37) Red Cell Distribution Width 15.1 % (11.5-14.5) H Platelet Count 176 x10^3/uL (140-400) Neutrophils (%) (Auto) 36 % (31-73) Lymphocytes (%) (Auto) 48 % (24-48) Monocytes (%) (Auto) 10 % (0-9) H Eosinophils (%) (Auto) 6 % (0-3) H Basophils (%) (Auto) 1 % (0-3) Neutrophils # (Auto) 2.2 x10^3uL (1.8-7.7) Lymphocytes # (Auto) 2.9 x10^3/uL (1.0-4.8) Monocytes # (Auto) 0.6 x10^3/uL (0.0-1.1) Eosinophils # (Auto) 0.4 x10^3/uL (0.0-0.7) Basophils # (Auto) 0.0 x10^3/uL (0.0-0.2) Sodium Level 144 mmol/L (136-145) Potassium Level 4.8 mmol/L (3.5-5.1) Chloride Level 108 mmol/L (98-107) H Carbon Dioxide Level 25 mmol/L (21-32) Anion Gap 11 (6-14) Blood Urea Nitrogen 27 mg/dL (7-20) H Creatinine 0.8 mg/dL (0.6-1.0) Estimated GFR (Cockcroft-Gault) 68.0 BUN/Creatinine Ratio 34 (6-20) H Glucose Level 108 mg/dL (70-99) H Calcium Level 9.1 mg/dL (8.5-10.1) Magnesium Level 2.2 mg/dL (1.8-2.4) Total Bilirubin 0.3 mg/dL (0.2-1.0) Aspartate Amino Transferase (AST) 27 U/L (15-37) Alanine Aminotransferase (ALT) 34 U/L (14-59) Alkaline Phosphatase 90 U/L (46-116) Total Protein 6.8 g/dL (6.4-8.2) Albumin 3.3 g/dL (3.4-5.0) L Albumin/Globulin Ratio 0.9 (1.0-1.7) L Valproic Acid Level 34 mcg/mL (50-100) L Valproic Acid Last Dose Date 05/26/2017 Valproic Acid Last Dose Time 1400 Current Medications: Meds: Current Medications Diphtheria/ Tetanus/Acell Pertussis (Boostrix) 0.5 ml ONCE ONCE VAX IM Last administered on 05/01/17at 22:36; Start 05/01/17 at 19:15; Stop 05/01/17 at 19:16 ; Status DC Lorazepam (Ativan) 2 mg 1X ONCE IM Last administered on 05/01/17at 19:45; Start 05/01/17 at 19:45; Stop 05/01/17 at 19:46; Status DC Diphenhydramine HCl (Benadryl) 50 mg 1X ONCE IM Last administered on at 19:45; Start 05/01/17 at 19:45; Stop 05/01/17 at 19:46; Status DC Diphenhydramine HCl (Benadryl) 50 mg STK-MED ONCE .ROUTE ; Start 05/01/17 at 19: 36; Stop 05/01/17 at 19:37; Status DC Lorazepam (Ativan) 1 mg STK-MED ONCE .ROUTE ; Start 05/01/17 at 19:38; Stop at 19:39; Status DC Midazolam HCl (Versed) 2 mg 1X ONCE IV ; Start 05/01/17 at 20:30; Stop at 20:31; Status DC Midazolam HCl (Versed) 5 mg STK-MED ONCE .ROUTE ; Start 05/01/17 at 20:25; Stop 05/01/17 at 20:26; Status DC Midazolam HCl (Versed) 5 mg 1X ONCE NS Last administered on 05/01/17at 20:40; Start 05/01/17 at 21:00; Stop 05/01/17 at 21:01; Status DC Ceftriaxone Sodium (Rocephin Im) 1 gm 1X ONCE IM Last administered on at 22:36; Start 05/01/17 at 21:15; Stop 05/01/17 at 21:16; Status DC Enoxaparin Sodium (Lovenox 60mg Syringe) 50 mg 1X ONCE SQ ; Start 05/01/17 at 21:45; Stop 05/01/17 at 21:45; Status DC Enoxaparin Sodium (Lovenox) 55 mg BID SQ ; Start 05/02/17 at 09:00; Stop at 09:00; Status DC Enoxaparin Sodium (Lovenox 60mg Syringe) 55 mg 1X ONCE SQ Last administered on 05/01/17at 22:35; Start 05/01/17 at 21:45; Stop 05/01/17 at 21:46; Status DC Iohexol (Omnipaque 300 Mg/ml) 75 ml 1X ONCE IV Last administered on 05/01/17at 22:11; Start 05/01/17 at 22:00; Stop 05/01/17 at 22:01; Status DC Midazolam HCl (Versed) 5 mg 1X ONCE IV ; Start 05/01/17 at 22:15; Stop at 22:18; Status DC Midazolam HCl (Versed) 1 mg 1X ONCE IV Last administered on 05/01/17at 22:30; Start 05/01/17 at 23:00; Stop 05/01/17 at 23:02; Status DC Cephalexin HCl (Keflex) 500 mg TID PO Last administered on 05/03/17 20:27; Start 05/02/17 at 09:00; Stop 05/03/17 at 22:41; Status DC Alprazolam (Xanax) 0.25 mg QID PO Last administered on 05/02/17at 17:32; Start 05/02/17 at 09:00; Stop 05/02/17 at 19:27; Status DC Divalproex Sodium (Depakote Sprinkles) 125 mg BID92 PO Last administered on 05/11at 14:05; Start 05/02/17 at 09:00; Stop 05/11/17 at 18:42; Status DC Divalproex Sodium (Depakote Sprinkles) 500 mg QHS PO Last administered on at 19:41; Start 05/02/17 at 21:00; Stop 05/07/17 at 18:37; Status DC Lorazepam (Ativan) 0.5 mg PRN Q4HRS PRN PO ANXIETY / AGITATION Last administered on 05/25/17at 11:14; Start 05/02/17 at 01:00 Lorazepam (Ativan Intensol) 0.5 mg PRN Q4HRS PRN PO ANXIETY / AGITATION Last administered on 05/27/17 11:26; Start 05/02/17 at 01:00 Olanzapine (ZyPREXA ZYDIS) 5 mg QHS PO Last administered on 05/07/17 20:07; Start 05/02/17 at 21:00; Stop 05/08/17 at 19:10; Status DC Sertraline HCl (Zoloft) 100 mg DAILY PO Last administered on 05/27/17 08:04; Start 05/02/17 at 09:00 Levofloxacin (Levaquin) 500 mg DAILY06 PO Last administered on 05/02/17at 08:53 ; Start 05/02/17 at 07:30; Stop 05/02/17 at 10:36; Status DC Lactobacillus Rhamnosus (Culturelle) 1 cap BID PO Last administered on at 19:35; Start 05/02/17 at 09:00 Levofloxacin (Levaquin) 250 mg DAILY06 PO Last administered on 05/06/17 07:45 ; Start 05/03/17 at 06:00; Stop 05/06/17 at 18:15; Status DC Alprazolam (Xanax) 0.25 mg TID PO Last administered on 05/06/17at 14:25; Start 05/02/17 at 21:00; Stop 05/06/17 at 20:59; Status DC Alprazolam (Xanax) 0.25 mg BID PO Last administered on 05/09/17at 19:50; Start at 21:00; Stop 05/10/17 at 08:59; Status DC Alprazolam (Xanax) 0.25 mg DAILY PO Last administered on 05/13/17at 08:21; Start 05/10/17 at 09:00; Stop 05/14/17 at 08:59; Status DC Mirtazapine (Remeron) 7.5 mg QHS PO Last administered on 05/02/17at 19:59; Start 05/02/17 at 21:00; Stop 05/03/17 at 19:31; Status DC Acetaminophen (Tylenol) 650 mg PRN Q6HRS PRN PO PAIN; Start 05/02/17 at 19:30 Aspirin (Children'S Aspirin) 81 mg DAILY PO Last administered on 05/27/17at 08: 03; Start 05/03/17 at 09:00 Cyanocobalamin (Vitamin B-12) 250 mcg DAILY PO Last administered on 05/27/17at 08:03; Start 05/03/17 at 09:00 Al Hydroxide/Mg Hydroxide (Mylanta Plus Xs) 15 ml PRN AFTMEALHC PRN PO DYSPEPSIA; Start 05/02/17 at 19:30 Multi-Ingredient Ointment (Analgesic [place]) 1 beck PRN QID PRN TP MUSCLE PAIN; Start 05/02/17 at 19:30 Phenytoin Sodium (Dilantin) 100 mg BID PO Last administered on 05/27/17at 19:35 ; Start 05/02/17 at 21:00 Senna/Docusate Sodium (Senna Plus) 1 tab BID PO Last administered on 05/27/17at 19:35; Start 05/02/17 at 21:00 Magnesium Hydroxide (Milk Of Magnesia) 2,400 mg PRN QHS PRN PO CONSTIPATION Last administered on 05/20/17at 11:56; Start 05/02/17 at 19:45 Potassium Chloride (Klor-Con) 20 meq DAILYWBKFT PO Last administered on at 08:03; Start 05/03/17 at 08:00 Neomycin/ Polymyxin/ Bacitracin (Triple Antibiotic Ointment) 1 pkt BID TP Last administered on 05/08/17at 08:51; Start 05/03/17 at 21:00; Stop 05/08/17 at 20:59; Status DC Mirtazapine (Remeron) 15 mg QHS PO Last administered on 05/27/17 19:35; Start 05/03/17 at 21:00 Trazodone HCl (Desyrel) 50 mg PRN QHS PRN PO SLEEP Last administered on 01:56; Start 05/03/17 at 19:30; Stop 05/16/17 at 18:59; Status DC Alprazolam (Xanax) 0.25 mg 1X ONCE PO Last administered on 05/05/17at 09:36; Start 05/05/17 at 10:00; Stop 05/05/17 at 10:01; Status DC Buspirone HCl (Buspar) 5 mg TID@0900,1300,1700 PO Last administered on at 16:43; Start 05/06/17 at 09:00; Stop 05/06/17 at 18:23; Status DC Buspirone HCl (Buspar) 5 mg BID@1300,1700 PO Last administered on 05/09/17at 14: 08; Start 05/07/17 at 13:00; Stop 05/09/17 at 18:34; Status DC Buspirone HCl (Buspar) 10 mg DAILY PO Last administered on 05/08/17at 08:49; Start 05/07/17 at 09:00; Stop 05/08/17 at 19:10; Status DC Divalproex Sodium (Depakote Sprinkles) 750 mg QHS PO Last administered on at 19:35; Start 05/07/17 at 21:00 Olanzapine (ZyPREXA ZYDIS) 2.5 mg QHS PO Last administered on 05/09/17at 19:48; Start 05/08/17 at 21:00; Stop 05/09/17 at 21:00; Status DC Divalproex Sodium (Depakote Sprinkles) 250 mg BID92 PO Last administered on at 13:07; Start 05/12/17 at 09:00 Buspirone HCl (Buspar) 5 mg BID@0900,1300 PO Last administered on 05/18/17at 13: 00; Start 05/15/17 at 13:00; Stop 05/18/17 at 15:50; Status DC Trazodone HCl (Desyrel) 50 mg PRN QHS PRN PO INSOMNIA, MAY REPEAT X1 Last administered on 05/24/17at 22:40; Start 05/16/17 at 19:00 Buspirone HCl (Buspar) 5 mg TID PO Last administered on 05/19/17at 13:50; Start 05/18/17 at 21:00; Stop 05/19/17 at 18:46; Status DC Buspirone HCl (Buspar) 5 mg [id number] PO Last administered on 05/21/17at 12:43; Start 05/19/17 at 21:00; Stop 05/21/17 at 14:16; Status DC Buspirone HCl (Buspar) 5 mg BID@0900,1700 PO Last administered on 05/24/17at 07: 52; Start 05/21/17 at 17:00; Stop 05/24/17 at 16:26; Status DC Buspirone HCl (Buspar) 10 mg DAILY@1300 PO Last administered on 05/24/17at 13:00 ; Start 05/22/17 at 13:00; Stop 05/24/17 at 16:26; Status DC Buspirone HCl (Buspar) 10 mg DAILY@0900,1300,1700 PO Last administered on at 17:20; Start 05/24/17 at 17:00; Stop 05/27/17 at 17:51; Status DC Buspirone HCl (Buspar) 10 mg BID@1300,1700 PO ; Start 05/28/17 at 13:00 Buspirone HCl (Buspar) 15 mg DAILY PO ; Start 05/28/17 at 09:00 Active Scripts Active Reported Klor-Con (Potassium Chloride) 20 Meq Packet 20 Meq PO DAILY Xanax (Alprazolam) 0.25 Mg Tablet 0.25 Mg PO QID Zoloft (Sertraline Hcl) 100 Mg Tablet 100 Mg PO DAILY Lorazepam Intensol (Lorazepam) 2 Mg/1 Ml Oral.conc 0.5 Mg PO PRN Q4HRS PRN Senna S Tablet (Sennosides/Docusate Sodium) 1 Each Tablet 1 Tab PO BID Depakote Sprinkle (Divalproex Sodium) 125 Mg Cap.sprink 500 Mg PO QHS Depakote Sprinkle (Divalproex Sodium) 125 Mg Cap.sprink 125 Mg PO BID92 Tylenol (Acetaminophen) 325 Mg Tablet 650 Mg PO PRN Q6HRS PRN Olanzapine Odt (Olanzapine) 5 Mg Tab.rapdis 5 Mg PO QHS Analgesic [place] (Methyl Salicylate/Menthol) 28 Gm Oint...g. 1 Beck TP PRN QID PRN Maalox Maximum Strength Susp (Mag Hydrox/Al Hydrox/Simeth) 355 Ml Oral.susp 15 Ml PO PRN AFTMEALHC PRN Milk Of Magnesia (Magnesium Hydroxide) 2,400 Mg/10 Ml Oral.susp 2,400 Mg PO PRN QHS PRN Vitamin B-12 (Cyanocobalamin (Vitamin B-12)) 1,000 Mcg Tablet 250 Mcg PO DAILY Lorazepam 0.5 Mg Tablet 0.5 Mg PO PRN Q4HRS PRN Dilantin (Phenytoin Sodium Extended) 100 Mg Capsule 100 Mg PO BID Aspirin 81 Mg Tab.chew 81 Mg PO DAILY I have reviewed the current psychotropics carefully including drug interactions. Risk benefit ratio favors no change other than as noted in my dictated progress note. Diagnosis: Problems: (1) Breakthrough seizure (2) Dementia with behavioral disturbance (3) Anxiety disorder (4) Dementia in Alzheimer's disease with delusions (5) Dementia in Alzheimer's disease with depression (6) Dementia, vascular, with delusions (7) Dementia, vascular, with depression (8) Impulse control disorder NAKIA KO MD May 27, 2017 20:52
--- NOTE | 2017-05-28 02:06 | PN ---
DATE: 05/26/2017 PSYCHIATRIC PROGRESS NOTE This is a late entry of 05/26/2017 covers elements not covered in my initial note of 05/26/2017. I met with the patient evening of 05/26/2017. SUBJECTIVE: The patient slept 6 hours previous evening and had a better day, remains confused, anxious, tried to escape through the exit door when another patient was being discharged, oblivious of what she is doing. REVIEW OF SYSTEMS: No CV, , pulmonary, eye, ENT system symptoms on review. Reliability is poor. MENTAL STATUS EXAM: Oriented to herself. Insight, judgment, recent and remote memory, attention, concentration, fund of knowledge poor, consistent with her diagnosis mentioned in my initial note. PLAN: Continue current psychotropics. Check valproic acid level in the morning. Adjust further thereafter. MAN Leandro KO MD DR: [email or web address]/luz JOB#: [id number] / [id number]
[2017-05-28 05:57] VITALS: BP 111/53
[2017-05-28] MEDS: DIVALPROEX 125 MG CAP.SPRINK PO SCH ×3 (08:52→20:02)
[2017-05-28] MEDS: CYANOCOBALAMIN (VITAMIN B-12) 250 MCG TABLET PO SCH (08:53)
[2017-05-28] MEDS: SENNOSIDES/DOCUSATE 8.6/50MG TABLET. PO SCH ×2 (08:53→20:01)
[2017-05-28] MEDS: SERTRALINE 100 MG TABLET. PO SCH (08:53)
[2017-05-28] MEDS: POTASSIUM CHLORIDE 20 MEQ TABLET.ER. PO SCH (08:53)
[2017-05-28] MEDS: ASPIRIN 81 MG TAB.CHEW PO SCH (08:53)
[2017-05-28] MEDS: PHENYTOIN SODIUM EXTENDED 100 MG CAPSULE PO SCH ×2 (08:53→20:02)
[2017-05-28] MEDS: LACTOBACILLUS RHAMNOSUS GG 1 CAPSULE. PO SCH ×2 (08:53→20:02)
[2017-05-28] MEDS: busPIRone 15 MG TABLET. PO SCH (08:54)
[2017-05-28] MEDS: LORazepam INTENSOL 2 MG/ML BOTTLE PO PRN (12:27)
[2017-05-28] MEDS: busPIRone 10 MG TABLET. PO SCH ×2 (13:46→16:34)
[2017-05-28 16:00] VITALS: BP 121/64
--- NOTE | 2017-05-28 19:41 | PN ---
DATE: 05/28/2017 This is a late entry, 05/27/2017, covers the elements not covered in my initial note, 05/27/2017. SUBJECTIVE: I met with the patient evening of 05/27/2017. The patient slept 6-3/4 hours the previous evening, compliant with at bedtime medications, still anxious, wandering, redirects better, agitated intermittently, was better in the morning, more agitated in the afternoon, then better again, received Ativan p.r.n. REVIEW OF SYSTEMS: No CV, , pulmonary, eye, ENT system symptoms on review. Reliability poor. MENTAL STATUS EXAM: Oriented to herself. Insight, judgment, recent and remote memory, attention, concentration, fund of knowledge poor, consistent with her diagnosis mentioned in my initial note. IMPRESSION: Major neurocognitive disorder, Alzheimer, vascular with depression, delusion, behavioral disturbance. PLAN: Increase the 9 a.m. BuSpar from 10 mg to 15 mg. Continue Rest unchanged per initial note, may need to increase BuSpar further in due course. MAN Leandro KO MD DR: [email or web address]/luz JOB#: [id number] / [id number]
[2017-05-28] MEDS: MIRTAZAPINE 15 MG TABLET PO SCH (20:02)
[2017-05-28] MEDS: traZODone 50 MG TABLET. PO PRN (20:03)
--- NOTE | 2017-05-28 21:02 | PDOC ---
Exam Note: Dane Note: Please also refer to the separate dictated note~for this date of service dictated separately.~Patient seen individually. Discussed the patient with Nursing staff reviewed the chart.~Reviewed interim history and current functioning. Reviewed vital signs,~Labs/ Radiology~and current medications noted below. Continue current treatment with the changes noted in the dictated addendum note Assessment: Vital Signs: Vital Signs Date Time Temp Pulse Resp B/P (MAP) Pulse Ox O2 Delivery O2 Flow Rate FiO2 05/28/17 16:00 97.3 76 16 121/64 (83) 100 05/26/17 15:24 Room Air I&O Intake and Output 05/28/17 07:00 Intake Total 1080 ml Balance 1080 ml Intake Oral 1080 ml # Voids 1 Current Medications: Meds: Current Medications Diphtheria/ Tetanus/Acell Pertussis (Boostrix) 0.5 ml ONCE ONCE VAX IM Last administered on 05/01/17at 22:36; Start 05/01/17 at 19:15; Stop 05/01/17 at 19:16 ; Status DC Lorazepam (Ativan) 2 mg 1X ONCE IM Last administered on 05/01/17at 19:45; Start 05/01/17 at 19:45; Stop 05/01/17 at 19:46; Status DC Diphenhydramine HCl (Benadryl) 50 mg 1X ONCE IM Last administered on at 19:45; Start 05/01/17 at 19:45; Stop 05/01/17 at 19:46; Status DC Diphenhydramine HCl (Benadryl) 50 mg STK-MED ONCE .ROUTE ; Start 05/01/17 at 19: 36; Stop 05/01/17 at 19:37; Status DC Lorazepam (Ativan) 1 mg STK-MED ONCE .ROUTE ; Start 05/01/17 at 19:38; Stop at 19:39; Status DC Midazolam HCl (Versed) 2 mg 1X ONCE IV ; Start 05/01/17 at 20:30; Stop at 20:31; Status DC Midazolam HCl (Versed) 5 mg STK-MED ONCE .ROUTE ; Start 05/01/17 at 20:25; Stop 05/01/17 at 20:26; Status DC Midazolam HCl (Versed) 5 mg 1X ONCE NS Last administered on 05/01/17at 20:40; Start 05/01/17 at 21:00; Stop 05/01/17 at 21:01; Status DC Ceftriaxone Sodium (Rocephin Im) 1 gm 1X ONCE IM Last administered on at 22:36; Start 05/01/17 at 21:15; Stop 05/01/17 at 21:16; Status DC Enoxaparin Sodium (Lovenox 60mg Syringe) 50 mg 1X ONCE SQ ; Start 05/01/17 at 21:45; Stop 05/01/17 at 21:45; Status DC Enoxaparin Sodium (Lovenox) 55 mg BID SQ ; Start 05/02/17 at 09:00; Stop at 09:00; Status DC Enoxaparin Sodium (Lovenox 60mg Syringe) 55 mg 1X ONCE SQ Last administered on 05/01/17at 22:35; Start 05/01/17 at 21:45; Stop 05/01/17 at 21:46; Status DC Iohexol (Omnipaque 300 Mg/ml) 75 ml 1X ONCE IV Last administered on 05/01/17at 22:11; Start 05/01/17 at 22:00; Stop 05/01/17 at 22:01; Status DC Midazolam HCl (Versed) 5 mg 1X ONCE IV ; Start 05/01/17 at 22:15; Stop at 22:18; Status DC Midazolam HCl (Versed) 1 mg 1X ONCE IV Last administered on 05/01/17at 22:30; Start 05/01/17 at 23:00; Stop 05/01/17 at 23:02; Status DC Cephalexin HCl (Keflex) 500 mg TID PO Last administered on 05/03/17at 20:27; Start 05/02/17 at 09:00; Stop 05/03/17 at 22:41; Status DC Alprazolam (Xanax) 0.25 mg QID PO Last administered on 05/02/17at 17:32; Start 05/02/17 at 09:00; Stop 05/02/17 at 19:27; Status DC Divalproex Sodium (Depakote Sprinkles) 125 mg BID92 PO Last administered on 05/11at 14:05; Start 05/02/17 at 09:00; Stop 05/11/17 at 18:42; Status DC Divalproex Sodium (Depakote Sprinkles) 500 mg QHS PO Last administered on at 19:41; Start 05/02/17 at 21:00; Stop 05/07/17 at 18:37; Status DC Lorazepam (Ativan) 0.5 mg PRN Q4HRS PRN PO ANXIETY / AGITATION Last administered on 05/25/17at 11:14; Start 05/02/17 at 01:00 Lorazepam (Ativan Intensol) 0.5 mg PRN Q4HRS PRN PO ANXIETY / AGITATION Last administered on 05/28/17at 12:27; Start 05/02/17 at 01:00 Olanzapine (ZyPREXA ZYDIS) 5 mg QHS PO Last administered on 05/07/17at 20:07; Start 05/02/17 at 21:00; Stop 05/08/17 at 19:10; Status DC Sertraline HCl (Zoloft) 100 mg DAILY PO Last administered on 05/28/17at 08:53; Start 05/02/17 at 09:00 Levofloxacin (Levaquin) 500 mg DAILY06 PO Last administered on 05/02/17at 08:53 ; Start 05/02/17 at 07:30; Stop 05/02/17 at 10:36; Status DC Lactobacillus Rhamnosus (Culturelle) 1 cap BID PO Last administered on at 20:02; Start 05/02/17 at 09:00 Levofloxacin (Levaquin) 250 mg DAILY06 PO Last administered on 05/06/17at 07:45 ; Start 05/03/17 at 06:00; Stop 05/06/17 at 18:15; Status DC Alprazolam (Xanax) 0.25 mg TID PO Last administered on 05/06/17at 14:25; Start 05/02/17 at 21:00; Stop 05/06/17 at 20:59; Status DC Alprazolam (Xanax) 0.25 mg BID PO Last administered on 05/09/17at 19:50; Start at 21:00; Stop 05/10/17 at 08:59; Status DC Alprazolam (Xanax) 0.25 mg DAILY PO Last administered on 05/13/17 08:21; Start 05/10/17 at 09:00; Stop 05/14/17 at 08:59; Status DC Mirtazapine (Remeron) 7.5 mg QHS PO Last administered on 05/02/17 19:59; Start 05/02/17 at 21:00; Stop 05/03/17 at 19:31; Status DC Acetaminophen (Tylenol) 650 mg PRN Q6HRS PRN PO PAIN; Start 05/02/17 at 19:30 Aspirin (Children'S Aspirin) 81 mg DAILY PO Last administered on 05/28/17 08: 53; Start 05/03/17 at 09:00 Cyanocobalamin (Vitamin B-12) 250 mcg DAILY PO Last administered on 05/28/17 08:53; Start 05/03/17 at 09:00 Al Hydroxide/Mg Hydroxide (Mylanta Plus Xs) 15 ml PRN AFTMEALHC PRN PO DYSPEPSIA; Start 05/02/17 at 19:30 Multi-Ingredient Ointment (Analgesic [place]er) 1 beck PRN QID PRN TP MUSCLE PAIN; Start 05/02/17 at 19:30 Phenytoin Sodium (Dilantin) 100 mg BID PO Last administered on 05/28/17 20:02 ; Start 05/02/17 at 21:00 Senna/Docusate Sodium (Senna Plus) 1 tab BID PO Last administered on 05/28/17at 20:01; Start 05/02/17 at 21:00 Magnesium Hydroxide (Milk Of Magnesia) 2,400 mg PRN QHS PRN PO CONSTIPATION Last administered on 05/20/17at 11:56; Start 05/02/17 at 19:45 Potassium Chloride (Klor-Con) 20 meq DAILYWBKFT PO Last administered on 08:53; Start 05/03/17 at 08:00 Neomycin/ Polymyxin/ Bacitracin (Triple Antibiotic Ointment) 1 pkt BID TP Last administered on 05/08/17 08:51; Start 05/03/17 at 21:00; Stop 05/08/17 at 20:59; Status DC Mirtazapine (Remeron) 15 mg QHS PO Last administered on 3/21/18at 20:02; Start 05/03/17 at 21:00 Trazodone HCl (Desyrel) 50 mg PRN QHS PRN PO SLEEP Last administered on at 01:56; Start 05/03/17 at 19:30; Stop 05/16/17 at 18:59; Status DC Alprazolam (Xanax) 0.25 mg 1X ONCE PO Last administered on 05/05/17at 09:36; Start 05/05/17 at 10:00; Stop 05/05/17 at 10:01; Status DC Buspirone HCl (Buspar) 5 mg TID@0900,1300,1700 PO Last administered on at 16:43; Start 05/06/17 at 09:00; Stop 05/06/17 at 18:23; Status DC Buspirone HCl (Buspar) 5 mg BID@1300,1700 PO Last administered on 05/09/17 14: 08; Start 05/07/17 at 13:00; Stop 05/09/17 at 18:34; Status DC Buspirone HCl (Buspar) 10 mg DAILY PO Last administered on 05/08/17at 08:49; Start 05/07/17 at 09:00; Stop 05/08/17 at 19:10; Status DC Divalproex Sodium (Depakote Sprinkles) 750 mg QHS PO Last administered on at 20:02; Start 05/07/17 at 21:00 Olanzapine (ZyPREXA ZYDIS) 2.5 mg QHS PO Last administered on 05/09/17at 19:48; Start 05/08/17 at 21:00; Stop 05/09/17 at 21:00; Status DC Divalproex Sodium (Depakote Sprinkles) 250 mg BID92 PO Last administered on at 13:46; Start 05/12/17 at 09:00 Buspirone HCl (Buspar) 5 mg BID@0900,1300 PO Last administered on 05/18/17at 13: 00; Start 05/15/17 at 13:00; Stop 05/18/17 at 15:50; Status DC Trazodone HCl (Desyrel) 50 mg PRN QHS PRN PO INSOMNIA, MAY REPEAT X1 Last administered on 05/28/17at 20:03; Start 05/16/17 at 19:00 Buspirone HCl (Buspar) 5 mg TID PO Last administered on 05/19/17at 13:50; Start 05/18/17 at 21:00; Stop 05/19/17 at 18:46; Status DC Buspirone HCl (Buspar) 5 mg [id number] PO Last administered on 05/21/17at 12:43; Start 05/19/17 at 21:00; Stop 05/21/17 at 14:16; Status DC Buspirone HCl (Buspar) 5 mg BID@0900,1700 PO Last administered on 05/24/17at 07: 52; Start 05/21/17 at 17:00; Stop 05/24/17 at 16:26; Status DC Buspirone HCl (Buspar) 10 mg DAILY@1300 PO Last administered on 05/24/17at 13:00 ; Start 05/22/17 at 13:00; Stop 05/24/17 at 16:26; Status DC Buspirone HCl (Buspar) 10 mg DAILY@0900,1300,1700 PO Last administered on at 17:20; Start 05/24/17 at 17:00; Stop 05/27/17 at 17:51; Status DC Buspirone HCl (Buspar) 10 mg BID@1300,1700 PO Last administered on 05/28/17at 16 :34; Start 05/28/17 at 13:00 Buspirone HCl (Buspar) 15 mg DAILY PO Last administered on 05/28/17at 08:54; Start 05/28/17 at 09:00 Active Scripts Active Reported Klor-Con (Potassium Chloride) 20 Meq Packet 20 Meq PO DAILY Xanax (Alprazolam) 0.25 Mg Tablet 0.25 Mg PO QID Zoloft (Sertraline Hcl) 100 Mg Tablet 100 Mg PO DAILY Lorazepam Intensol (Lorazepam) 2 Mg/1 Ml Oral.conc 0.5 Mg PO PRN Q4HRS PRN Senna S Tablet (Sennosides/Docusate Sodium) 1 Each Tablet 1 Tab PO BID Depakote Sprinkle (Divalproex Sodium) 125 Mg Cap.sprink 500 Mg PO QHS Depakote Sprinkle (Divalproex Sodium) 125 Mg Cap.sprink 125 Mg PO BID92 Tylenol (Acetaminophen) 325 Mg Tablet 650 Mg PO PRN Q6HRS PRN Olanzapine Odt (Olanzapine) 5 Mg Tab.rapdis 5 Mg PO QHS Analgesic [place] (Methyl Salicylate/Menthol) 28 Gm Oint...g. 1 Beck TP PRN QID PRN Maalox Maximum Strength Susp (Mag Hydrox/Al Hydrox/Simeth) 355 Ml Oral.susp 15 Ml PO PRN AFTMEALHC PRN Milk Of Magnesia (Magnesium Hydroxide) 2,400 Mg/10 Ml Oral.susp 2,400 Mg PO PRN QHS PRN Vitamin B-12 (Cyanocobalamin (Vitamin B-12)) 1,000 Mcg Tablet 250 Mcg PO DAILY Lorazepam 0.5 Mg Tablet 0.5 Mg PO PRN Q4HRS PRN Dilantin (Phenytoin Sodium Extended) 100 Mg Capsule 100 Mg PO BID Aspirin 81 Mg Tab.chew 81 Mg PO DAILY I have reviewed the current psychotropics carefully including drug interactions. Risk benefit ratio favors no change other than as noted in my dictated progress note. Diagnosis: Problems: (1) Hypernatremia (2) Metabolic encephalopathy (3) Breakthrough seizure (4) Dementia with behavioral disturbance (5) Anxiety disorder (6) Dementia in Alzheimer's disease with delusions (7) Dementia in Alzheimer's disease with depression (8) Dementia, vascular, with delusions (9) Dementia, vascular, with depression (10) Impulse control disorder NAKIA KO MD May 28, 2017 21:01
[2017-05-29 06:00] VITALS: BP 142/58
[2017-05-29] MEDS: SENNOSIDES/DOCUSATE 8.6/50MG TABLET. PO SCH ×2 (09:34→19:53)
[2017-05-29] MEDS: busPIRone 15 MG TABLET. PO SCH (09:34)
[2017-05-29] MEDS: DIVALPROEX 125 MG CAP.SPRINK PO SCH ×3 (09:34→19:53)
[2017-05-29] MEDS: LACTOBACILLUS RHAMNOSUS GG 1 CAPSULE. PO SCH ×2 (09:35→19:53)
[2017-05-29] MEDS: PHENYTOIN SODIUM EXTENDED 100 MG CAPSULE PO SCH ×2 (09:35→19:53)
[2017-05-29] MEDS: ASPIRIN 81 MG TAB.CHEW PO SCH (09:35)
[2017-05-29] MEDS: POTASSIUM CHLORIDE 20 MEQ TABLET.ER. PO SCH (09:35)
[2017-05-29] MEDS: SERTRALINE 100 MG TABLET. PO SCH (09:35)
[2017-05-29] MEDS: CYANOCOBALAMIN (VITAMIN B-12) 250 MCG TABLET PO SCH (09:36)
[2017-05-29] MEDS: LORazepam INTENSOL 2 MG/ML BOTTLE PO PRN (11:25)
[2017-05-29] MEDS: busPIRone 10 MG TABLET. PO SCH ×2 (13:49→17:11)
[2017-05-29 16:07] VITALS: BP 117/55
[2017-05-29] MEDS: MIRTAZAPINE 15 MG TABLET PO SCH (19:53)
--- NOTE | 2017-05-29 21:06 | PDOC ---
Exam Note: Dane Note: Please also refer to the separate dictated note~for this date of service dictated separately.~Patient seen individually. Discussed the patient with Nursing staff reviewed the chart.~Reviewed interim history and current functioning. Reviewed vital signs,~Labs/ Radiology~and current medications noted below. Continue current treatment with the changes noted in the dictated addendum note Assessment: Vital Signs: Vital Signs Date Time Temp Pulse Resp B/P (MAP) Pulse Ox O2 Delivery O2 Flow Rate FiO2 05/29/17 16:07 98.0 65 18 117/55 (75) 95 05/26/17 15:24 Room Air I&O Intake and Output 05/29/17 07:00 Intake Total 1640 ml Balance 1640 ml Intake Oral 1640 ml # Voids 1 Current Medications: Meds: Current Medications Diphtheria/ Tetanus/Acell Pertussis (Boostrix) 0.5 ml ONCE ONCE VAX IM Last administered on 05/01/17at 22:36; Start 05/01/17 at 19:15; Stop 05/01/17 at 19:16 ; Status DC Lorazepam (Ativan) 2 mg 1X ONCE IM Last administered on 05/01/17at 19:45; Start 05/01/17 at 19:45; Stop 05/01/17 at 19:46; Status DC Diphenhydramine HCl (Benadryl) 50 mg 1X ONCE IM Last administered on at 19:45; Start 05/01/17 at 19:45; Stop 05/01/17 at 19:46; Status DC Diphenhydramine HCl (Benadryl) 50 mg STK-MED ONCE .ROUTE ; Start 05/01/17 at 19: 36; Stop 05/01/17 at 19:37; Status DC Lorazepam (Ativan) 1 mg STK-MED ONCE .ROUTE ; Start 05/01/17 at 19:38; Stop at 19:39; Status DC Midazolam HCl (Versed) 2 mg 1X ONCE IV ; Start 05/01/17 at 20:30; Stop at 20:31; Status DC Midazolam HCl (Versed) 5 mg STK-MED ONCE .ROUTE ; Start 05/01/17 at 20:25; Stop 05/01/17 at 20:26; Status DC Midazolam HCl (Versed) 5 mg 1X ONCE NS Last administered on 05/01/17at 20:40; Start 05/01/17 at 21:00; Stop 05/01/17 at 21:01; Status DC Ceftriaxone Sodium (Rocephin Im) 1 gm 1X ONCE IM Last administered on at 22:36; Start 05/01/17 at 21:15; Stop 05/01/17 at 21:16; Status DC Enoxaparin Sodium (Lovenox 60mg Syringe) 50 mg 1X ONCE SQ ; Start 05/01/17 at 21:45; Stop 05/01/17 at 21:45; Status DC Enoxaparin Sodium (Lovenox) 55 mg BID SQ ; Start 05/02/17 at 09:00; Stop at 09:00; Status DC Enoxaparin Sodium (Lovenox 60mg Syringe) 55 mg 1X ONCE SQ Last administered on 05/01/17at 22:35; Start 05/01/17 at 21:45; Stop 05/01/17 at 21:46; Status DC Iohexol (Omnipaque 300 Mg/ml) 75 ml 1X ONCE IV Last administered on 05/01/17at 22:11; Start 05/01/17 at 22:00; Stop 05/01/17 at 22:01; Status DC Midazolam HCl (Versed) 5 mg 1X ONCE IV ; Start 05/01/17 at 22:15; Stop at 22:18; Status DC Midazolam HCl (Versed) 1 mg 1X ONCE IV Last administered on 05/01/17at 22:30; Start 05/01/17 at 23:00; Stop 05/01/17 at 23:02; Status DC Cephalexin HCl (Keflex) 500 mg TID PO Last administered on 05/03/17at 20:27; Start 05/02/17 at 09:00; Stop 05/03/17 at 22:41; Status DC Alprazolam (Xanax) 0.25 mg QID PO Last administered on 05/02/17at 17:32; Start 05/02/17 at 09:00; Stop 05/02/17 at 19:27; Status DC Divalproex Sodium (Depakote Sprinkles) 125 mg BID92 PO Last administered on 05/11at 14:05; Start 05/02/17 at 09:00; Stop 05/11/17 at 18:42; Status DC Divalproex Sodium (Depakote Sprinkles) 500 mg QHS PO Last administered on at 19:41; Start 05/02/17 at 21:00; Stop 05/07/17 at 18:37; Status DC Lorazepam (Ativan) 0.5 mg PRN Q4HRS PRN PO ANXIETY / AGITATION Last administered on 05/25/17at 11:14; Start 05/02/17 at 01:00 Lorazepam (Ativan Intensol) 0.5 mg PRN Q4HRS PRN PO ANXIETY / AGITATION Last administered on 05/29/17at 11:25; Start 05/02/17 at 01:00 Olanzapine (ZyPREXA ZYDIS) 5 mg QHS PO Last administered on 05/07/17at 20:07; Start 05/02/17 at 21:00; Stop 05/08/17 at 19:10; Status DC Sertraline HCl (Zoloft) 100 mg DAILY PO Last administered on 05/29/17at 09:35; Start 05/02/17 at 09:00 Levofloxacin (Levaquin) 500 mg DAILY06 PO Last administered on 05/02/17at 08:53 ; Start 05/02/17 at 07:30; Stop 05/02/17 at 10:36; Status DC Lactobacillus Rhamnosus (Culturelle) 1 cap BID PO Last administered on at 19:53; Start 05/02/17 at 09:00 Levofloxacin (Levaquin) 250 mg DAILY06 PO Last administered on 05/06/17at 07:45 ; Start 05/03/17 at 06:00; Stop 05/06/17 at 18:15; Status DC Alprazolam (Xanax) 0.25 mg TID PO Last administered on 05/06/17at 14:25; Start 05/02/17 at 21:00; Stop 05/06/17 at 20:59; Status DC Alprazolam (Xanax) 0.25 mg BID PO Last administered on 05/09/17at 19:50; Start at 21:00; Stop 05/10/17 at 08:59; Status DC Alprazolam (Xanax) 0.25 mg DAILY PO Last administered on 05/13/17 08:21; Start 05/10/17 at 09:00; Stop 05/14/17 at 08:59; Status DC Mirtazapine (Remeron) 7.5 mg QHS PO Last administered on 05/02/17 19:59; Start 05/02/17 at 21:00; Stop 05/03/17 at 19:31; Status DC Acetaminophen (Tylenol) 650 mg PRN Q6HRS PRN PO PAIN; Start 05/02/17 at 19:30 Aspirin (Children'S Aspirin) 81 mg DAILY PO Last administered on 05/29/17 09: 35; Start 05/03/17 at 09:00 Cyanocobalamin (Vitamin B-12) 250 mcg DAILY PO Last administered on 05/29/17 09:36; Start 05/03/17 at 09:00 Al Hydroxide/Mg Hydroxide (Mylanta Plus Xs) 15 ml PRN AFTMEALHC PRN PO DYSPEPSIA; Start 05/02/17 at 19:30 Multi-Ingredient Ointment (Analgesic [place]) 1 beck PRN QID PRN TP MUSCLE PAIN; Start 05/02/17 at 19:30 Phenytoin Sodium (Dilantin) 100 mg BID PO Last administered on 05/29/17 19:53 ; Start 05/02/17 at 21:00 Senna/Docusate Sodium (Senna Plus) 1 tab BID PO Last administered on 05/29/17 19:53; Start 05/02/17 at 21:00 Magnesium Hydroxide (Milk Of Magnesia) 2,400 mg PRN QHS PRN PO CONSTIPATION Last administered on 05/20/17at 11:56; Start 05/02/17 at 19:45 Potassium Chloride (Klor-Con) 20 meq DAILYWBKFT PO Last administered on 09:35; Start 05/03/17 at 08:00 Neomycin/ Polymyxin/ Bacitracin (Triple Antibiotic Ointment) 1 pkt BID TP Last administered on 05/08/17 08:51; Start 05/03/17 at 21:00; Stop 05/08/17 at 20:59; Status DC Mirtazapine (Remeron) 15 mg QHS PO Last administered on 3/22/18at 19:53; Start 05/03/17 at 21:00 Trazodone HCl (Desyrel) 50 mg PRN QHS PRN PO SLEEP Last administered on at 01:56; Start 05/03/17 at 19:30; Stop 05/16/17 at 18:59; Status DC Alprazolam (Xanax) 0.25 mg 1X ONCE PO Last administered on 05/05/17at 09:36; Start 05/05/17 at 10:00; Stop 05/05/17 at 10:01; Status DC Buspirone HCl (Buspar) 5 mg TID@0900,1300,1700 PO Last administered on at 16:43; Start 05/06/17 at 09:00; Stop 05/06/17 at 18:23; Status DC Buspirone HCl (Buspar) 5 mg BID@1300,1700 PO Last administered on 05/09/17 14: 08; Start 05/07/17 at 13:00; Stop 05/09/17 at 18:34; Status DC Buspirone HCl (Buspar) 10 mg DAILY PO Last administered on 05/08/17at 08:49; Start 05/07/17 at 09:00; Stop 05/08/17 at 19:10; Status DC Divalproex Sodium (Depakote Sprinkles) 750 mg QHS PO Last administered on at 19:53; Start 05/07/17 at 21:00 Olanzapine (ZyPREXA ZYDIS) 2.5 mg QHS PO Last administered on 05/09/17at 19:48; Start 05/08/17 at 21:00; Stop 05/09/17 at 21:00; Status DC Divalproex Sodium (Depakote Sprinkles) 250 mg BID92 PO Last administered on at 13:49; Start 05/12/17 at 09:00 Buspirone HCl (Buspar) 5 mg BID@0900,1300 PO Last administered on 05/18/17at 13: 00; Start 05/15/17 at 13:00; Stop 05/18/17 at 15:50; Status DC Trazodone HCl (Desyrel) 50 mg PRN QHS PRN PO INSOMNIA, MAY REPEAT X1 Last administered on 05/28/17at 20:03; Start 05/16/17 at 19:00 Buspirone HCl (Buspar) 5 mg TID PO Last administered on 05/19/17at 13:50; Start 05/18/17 at 21:00; Stop 05/19/17 at 18:46; Status DC Buspirone HCl (Buspar) 5 mg [id number] PO Last administered on 05/21/17at 12:43; Start 05/19/17 at 21:00; Stop 05/21/17 at 14:16; Status DC Buspirone HCl (Buspar) 5 mg BID@0900,1700 PO Last administered on 05/24/17at 07: 52; Start 05/21/17 at 17:00; Stop 05/24/17 at 16:26; Status DC Buspirone HCl (Buspar) 10 mg DAILY@1300 PO Last administered on 05/24/17at 13:00 ; Start 05/22/17 at 13:00; Stop 05/24/17 at 16:26; Status DC Buspirone HCl (Buspar) 10 mg DAILY@0900,1300,1700 PO Last administered on at 17:20; Start 05/24/17 at 17:00; Stop 05/27/17 at 17:51; Status DC Buspirone HCl (Buspar) 10 mg BID@1300,1700 PO Last administered on 05/29/17at 17 :11; Start 05/28/17 at 13:00 Buspirone HCl (Buspar) 15 mg DAILY PO Last administered on 05/29/17at 09:34; Start 05/28/17 at 09:00 Active Scripts Active Reported Klor-Con (Potassium Chloride) 20 Meq Packet 20 Meq PO DAILY Xanax (Alprazolam) 0.25 Mg Tablet 0.25 Mg PO QID Zoloft (Sertraline Hcl) 100 Mg Tablet 100 Mg PO DAILY Lorazepam Intensol (Lorazepam) 2 Mg/1 Ml Oral.conc 0.5 Mg PO PRN Q4HRS PRN Senna S Tablet (Sennosides/Docusate Sodium) 1 Each Tablet 1 Tab PO BID Depakote Sprinkle (Divalproex Sodium) 125 Mg Cap.sprink 500 Mg PO QHS Depakote Sprinkle (Divalproex Sodium) 125 Mg Cap.sprink 125 Mg PO BID92 Tylenol (Acetaminophen) 325 Mg Tablet 650 Mg PO PRN Q6HRS PRN Olanzapine Odt (Olanzapine) 5 Mg Tab.rapdis 5 Mg PO QHS Analgesic [place] (Methyl Salicylate/Menthol) 28 Gm Oint...g. 1 Beck TP PRN QID PRN Maalox Maximum Strength Susp (Mag Hydrox/Al Hydrox/Simeth) 355 Ml Oral.susp 15 Ml PO PRN AFTMEALHC PRN Milk Of Magnesia (Magnesium Hydroxide) 2,400 Mg/10 Ml Oral.susp 2,400 Mg PO PRN QHS PRN Vitamin B-12 (Cyanocobalamin (Vitamin B-12)) 1,000 Mcg Tablet 250 Mcg PO DAILY Lorazepam 0.5 Mg Tablet 0.5 Mg PO PRN Q4HRS PRN Dilantin (Phenytoin Sodium Extended) 100 Mg Capsule 100 Mg PO BID Aspirin 81 Mg Tab.chew 81 Mg PO DAILY I have reviewed the current psychotropics carefully including drug interactions. Risk benefit ratio favors no change other than as noted in my dictated progress note. 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
[2017-05-30 05:58] VITALS: BP 119/56
[2017-05-30] MEDS: SENNOSIDES/DOCUSATE 8.6/50MG TABLET. PO SCH ×2 (08:09→19:43)
[2017-05-30] MEDS: ASPIRIN 81 MG TAB.CHEW PO SCH (08:09)
[2017-05-30] MEDS: LACTOBACILLUS RHAMNOSUS GG 1 CAPSULE. PO SCH ×2 (08:09→19:43)
[2017-05-30] MEDS: PHENYTOIN SODIUM EXTENDED 100 MG CAPSULE PO SCH ×2 (08:09→19:43)
[2017-05-30] MEDS: DIVALPROEX 125 MG CAP.SPRINK PO SCH ×3 (08:09→19:42)
[2017-05-30] MEDS: POTASSIUM CHLORIDE 20 MEQ TABLET.ER. PO SCH (08:09)
[2017-05-30] MEDS: SERTRALINE 100 MG TABLET. PO SCH (08:10)
[2017-05-30] MEDS: busPIRone 15 MG TABLET. PO SCH (08:10)
[2017-05-30] MEDS: CYANOCOBALAMIN (VITAMIN B-12) 250 MCG TABLET PO SCH (08:10)
--- NOTE | 2017-05-30 10:20 | PN ---
DATE: 05/28/2017 This is a late entry for 05/28/2017 and covers elements not covered in my initial note of 05/28/2017. I met with the patient evening of 05/28/2017. The patient remains confused, oblivious of her surroundings, ambulates on her own. At 11:00, she was a little more agitated until about noon with increased anxiety. Received Ativan that seemed to help, had Boost with dinner. REVIEW OF SYSTEMS: No CV, , pulmonary, eye system symptoms on review. Reliability poor. MENTAL STATUS EXAM: Oriented to herself. Insight, judgment, recent and remote memory, attention, concentration, fund of knowledge poor, consistent with her diagnosis as mentioned in my initial note. PLAN: Continue current psychotropics. Increase BuSpar as clinically indicated. MAN Leandro KO MD DR: LUCRECIA/luz JOB#: [id number] / [id number]
[2017-05-30] MEDS: busPIRone 10 MG TABLET. PO SCH ×2 (13:00→17:00)
--- NOTE | 2017-05-30 14:49 | PN ---
DATE: 05/29/2017 This is a late entry for 05/29/2017 and covers elements not covered in my initial note of 05/29/2017. I met with the patient evening of 05/29/2017. The patient was staffed at a treatment team meeting with the entire team morning of 05/29/2017. Slept 7-1/4 hours previous evening, attempted to contact her daughter, came for treatment team, but she was unavailable. The patient gets anxious in the evening, wandering, but overall less agitated, even though the evening time is harder. She got repeat trazodone previous night. REVIEW OF SYSTEMS: No CV, , pulmonary, eye, ENT system symptoms on review. Reliability poor. MENTAL STATUS EXAM: Oriented to herself. Insight, judgment, recent and remote memory, attention, concentration, fund of knowledge poor, consistent with her diagnosis as mentioned in my initial note. IMPRESSION: Major neurocognitive disorder, Alzheimer, vascular with depression, delusion, behavioral disturbance. Rest unchanged. PLAN: Continue current psychotropics. Adjust further as clinically indicated. Current psychotropics mentioned in my initial note. MAN Laendro KO MD DR: LUCRECIA/luz JOB#: [id number] / [id number]
[2017-05-30] MEDS: LORazepam 0.5 MG TABLET PO PRN (15:30)
[2017-05-30 16:16] VITALS: BP 123/54
[2017-05-30] MEDS: MIRTAZAPINE 15 MG TABLET PO SCH (19:43)
[2017-05-30] MEDS: traZODone 50 MG TABLET. PO PRN (19:43)
--- NOTE | 2017-05-30 21:06 | PDOC ---
Exam Note: Dane Note: Please also refer to the separate dictated note~for this date of service dictated separately.~Patient seen individually. Discussed the patient with Nursing staff reviewed the chart.~Reviewed interim history and current functioning. Reviewed vital signs,~Labs/ Radiology~and current medications noted below. Continue current treatment with the changes noted in the dictated addendum note Assessment: Vital Signs: Vital Signs Date Time Temp Pulse Resp B/P (MAP) Pulse Ox O2 Delivery O2 Flow Rate FiO2 05/30/17 16:16 98.3 66 18 123/54 (77) 98 05/26/17 15:24 Room Air I&O Intake and Output 05/30/17 07:00 Intake Total 960 ml Balance 960 ml Intake Oral 960 ml # Bowel Movements 1 Current Medications: Meds: Current Medications Diphtheria/ Tetanus/Acell Pertussis (Boostrix) 0.5 ml ONCE ONCE VAX IM Last administered on 05/01/17at 22:36; Start 05/01/17 at 19:15; Stop 05/01/17 at 19:16 ; Status DC Lorazepam (Ativan) 2 mg 1X ONCE IM Last administered on 05/01/17at 19:45; Start 05/01/17 at 19:45; Stop 05/01/17 at 19:46; Status DC Diphenhydramine HCl (Benadryl) 50 mg 1X ONCE IM Last administered on at 19:45; Start 05/01/17 at 19:45; Stop 05/01/17 at 19:46; Status DC Diphenhydramine HCl (Benadryl) 50 mg STK-MED ONCE .ROUTE ; Start 05/01/17 at 19: 36; Stop 05/01/17 at 19:37; Status DC Lorazepam (Ativan) 1 mg STK-MED ONCE .ROUTE ; Start 05/01/17 at 19:38; Stop at 19:39; Status DC Midazolam HCl (Versed) 2 mg 1X ONCE IV ; Start 05/01/17 at 20:30; Stop at 20:31; Status DC Midazolam HCl (Versed) 5 mg STK-MED ONCE .ROUTE ; Start 05/01/17 at 20:25; Stop 05/01/17 at 20:26; Status DC Midazolam HCl (Versed) 5 mg 1X ONCE NS Last administered on 05/01/17at 20:40; Start 05/01/17 at 21:00; Stop 05/01/17 at 21:01; Status DC Ceftriaxone Sodium (Rocephin Im) 1 gm 1X ONCE IM Last administered on at 22:36; Start 05/01/17 at 21:15; Stop 05/01/17 at 21:16; Status DC Enoxaparin Sodium (Lovenox 60mg Syringe) 50 mg 1X ONCE SQ ; Start 05/01/17 at 21:45; Stop 05/01/17 at 21:45; Status DC Enoxaparin Sodium (Lovenox) 55 mg BID SQ ; Start 05/02/17 at 09:00; Stop at 09:00; Status DC Enoxaparin Sodium (Lovenox 60mg Syringe) 55 mg 1X ONCE SQ Last administered on 05/01/17at 22:35; Start 05/01/17 at 21:45; Stop 05/01/17 at 21:46; Status DC Iohexol (Omnipaque 300 Mg/ml) 75 ml 1X ONCE IV Last administered on 05/01/17at 22:11; Start 05/01/17 at 22:00; Stop 05/01/17 at 22:01; Status DC Midazolam HCl (Versed) 5 mg 1X ONCE IV ; Start 05/01/17 at 22:15; Stop at 22:18; Status DC Midazolam HCl (Versed) 1 mg 1X ONCE IV Last administered on 05/01/17at 22:30; Start 05/01/17 at 23:00; Stop 05/01/17 at 23:02; Status DC Cephalexin HCl (Keflex) 500 mg TID PO Last administered on 05/03/17at 20:27; Start 05/02/17 at 09:00; Stop 05/03/17 at 22:41; Status DC Alprazolam (Xanax) 0.25 mg QID PO Last administered on 05/02/17at 17:32; Start 05/02/17 at 09:00; Stop 05/02/17 at 19:27; Status DC Divalproex Sodium (Depakote Sprinkles) 125 mg BID92 PO Last administered on 05/11at 14:05; Start 05/02/17 at 09:00; Stop 05/11/17 at 18:42; Status DC Divalproex Sodium (Depakote Sprinkles) 500 mg QHS PO Last administered on at 19:41; Start 05/02/17 at 21:00; Stop 05/07/17 at 18:37; Status DC Lorazepam (Ativan) 0.5 mg PRN Q4HRS PRN PO ANXIETY / AGITATION Last administered on 05/30/17at 15:30; Start 05/02/17 at 01:00 Lorazepam (Ativan Intensol) 0.5 mg PRN Q4HRS PRN PO ANXIETY / AGITATION Last administered on 05/29/17 11:25; Start 05/02/17 at 01:00 Olanzapine (ZyPREXA ZYDIS) 5 mg QHS PO Last administered on 05/07/17 20:07; Start 05/02/17 at 21:00; Stop 05/08/17 at 19:10; Status DC Sertraline HCl (Zoloft) 100 mg DAILY PO Last administered on 05/30/17 08:10; Start 05/02/17 at 09:00 Levofloxacin (Levaquin) 500 mg DAILY06 PO Last administered on 05/02/17at 08:53 ; Start 05/02/17 at 07:30; Stop 05/02/17 at 10:36; Status DC Lactobacillus Rhamnosus (Culturelle) 1 cap BID PO Last administered on at 19:43; Start 05/02/17 at 09:00 Levofloxacin (Levaquin) 250 mg DAILY06 PO Last administered on 05/06/17at 07:45 ; Start 05/03/17 at 06:00; Stop 05/06/17 at 18:15; Status DC Alprazolam (Xanax) 0.25 mg TID PO Last administered on 05/06/17at 14:25; Start 05/02/17 at 21:00; Stop 05/06/17 at 20:59; Status DC Alprazolam (Xanax) 0.25 mg BID PO Last administered on 05/09/17 19:50; Start at 21:00; Stop 05/10/17 at 08:59; Status DC Alprazolam (Xanax) 0.25 mg DAILY PO Last administered on 05/13/17 08:21; Start 05/10/17 at 09:00; Stop 05/14/17 at 08:59; Status DC Mirtazapine (Remeron) 7.5 mg QHS PO Last administered on 05/02/17 19:59; Start 05/02/17 at 21:00; Stop 05/03/17 at 19:31; Status DC Acetaminophen (Tylenol) 650 mg PRN Q6HRS PRN PO PAIN; Start 05/02/17 at 19:30 Aspirin (Children'S Aspirin) 81 mg DAILY PO Last administered on 05/30/17 08: 09; Start 05/03/17 at 09:00 Cyanocobalamin (Vitamin B-12) 250 mcg DAILY PO Last administered on 05/30/17at 08:10; Start 05/03/17 at 09:00 Al Hydroxide/Mg Hydroxide (Mylanta Plus Xs) 15 ml PRN AFTMEALHC PRN PO DYSPEPSIA; Start 05/02/17 at 19:30 Multi-Ingredient Ointment (Analgesic [place]) 1 beck PRN QID PRN TP MUSCLE PAIN; Start 05/02/17 at 19:30 Phenytoin Sodium (Dilantin) 100 mg BID PO Last administered on 05/30/17 19:43 ; Start 05/02/17 at 21:00 Senna/Docusate Sodium (Senna Plus) 1 tab BID PO Last administered on 05/30/17at 19:43; Start 05/02/17 at 21:00 Magnesium Hydroxide (Milk Of Magnesia) 2,400 mg PRN QHS PRN PO CONSTIPATION Last administered on 05/20/17at 11:56; Start 05/02/17 at 19:45 Potassium Chloride (Klor-Con) 20 meq DAILYWBKFT PO Last administered on 08:09; Start 05/03/17 at 08:00 Neomycin/ Polymyxin/ Bacitracin (Triple Antibiotic Ointment) 1 pkt BID TP Last administered on 05/08/17 08:51; Start 05/03/17 at 21:00; Stop 05/08/17 at 20:59; Status DC Mirtazapine (Remeron) 15 mg QHS PO Last administered on 05/30/17 19:43; Start 05/03/17 at 21:00 Trazodone HCl (Desyrel) 50 mg PRN QHS PRN PO SLEEP Last administered on 01:56; Start 05/03/17 at 19:30; Stop 05/16/17 at 18:59; Status DC Alprazolam (Xanax) 0.25 mg 1X ONCE PO Last administered on 05/05/17at 09:36; Start 05/05/17 at 10:00; Stop 05/05/17 at 10:01; Status DC Buspirone HCl (Buspar) 5 mg TID@0900,1300,1700 PO Last administered on at 16:43; Start 05/06/17 at 09:00; Stop 05/06/17 at 18:23; Status DC Buspirone HCl (Buspar) 5 mg BID@1300,1700 PO Last administered on 05/09/17 14: 08; Start 05/07/17 at 13:00; Stop 05/09/17 at 18:34; Status DC Buspirone HCl (Buspar) 10 mg DAILY PO Last administered on 05/08/17 08:49; Start 05/07/17 at 09:00; Stop 05/08/17 at 19:10; Status DC Divalproex Sodium (Depakote Sprinkles) 750 mg QHS PO Last administered on 19:42; Start 05/07/17 at 21:00 Olanzapine (ZyPREXA ZYDIS) 2.5 mg QHS PO Last administered on 05/09/17 19:48; Start 05/08/17 at 21:00; Stop 05/09/17 at 21:00; Status DC Divalproex Sodium (Depakote Sprinkles) 250 mg BID92 PO Last administered on 13:08; Start 05/12/17 at 09:00 Buspirone HCl (Buspar) 5 mg BID@0900,1300 PO Last administered on 05/18/17 13: 00; Start 05/15/17 at 13:00; Stop 05/18/17 at 15:50; Status DC Trazodone HCl (Desyrel) 50 mg PRN QHS PRN PO INSOMNIA, MAY REPEAT X1 Last administered on 05/30/17at 19:43; Start 05/16/17 at 19:00 Buspirone HCl (Buspar) 5 mg TID PO Last administered on 05/19/17at 13:50; Start 05/18/17 at 21:00; Stop 05/19/17 at 18:46; Status DC Buspirone HCl (Buspar) 5 mg [id number] PO Last administered on 05/21/17at 12:43; Start 05/19/17 at 21:00; Stop 05/21/17 at 14:16; Status DC Buspirone HCl (Buspar) 5 mg BID@0900,1700 PO Last administered on 05/24/17at 07: 52; Start 05/21/17 at 17:00; Stop 05/24/17 at 16:26; Status DC Buspirone HCl (Buspar) 10 mg DAILY@1300 PO Last administered on 05/24/17at 13:00 ; Start 05/22/17 at 13:00; Stop 05/24/17 at 16:26; Status DC Buspirone HCl (Buspar) 10 mg DAILY@0900,1300,1700 PO Last administered on at 17:20; Start 05/24/17 at 17:00; Stop 05/27/17 at 17:51; Status DC Buspirone HCl (Buspar) 10 mg BID@1300,1700 PO Last administered on 05/30/17at 17 :00; Start 05/28/17 at 13:00 Buspirone HCl (Buspar) 15 mg DAILY PO Last administered on 05/30/17at 08:10; Start 05/28/17 at 09:00 Active Scripts Active Reported Klor-Con (Potassium Chloride) 20 Meq Packet 20 Meq PO DAILY Xanax (Alprazolam) 0.25 Mg Tablet 0.25 Mg PO QID Zoloft (Sertraline Hcl) 100 Mg Tablet 100 Mg PO DAILY Lorazepam Intensol (Lorazepam) 2 Mg/1 Ml Oral.conc 0.5 Mg PO PRN Q4HRS PRN Senna S Tablet (Sennosides/Docusate Sodium) 1 Each Tablet 1 Tab PO BID Depakote Sprinkle (Divalproex Sodium) 125 Mg Cap.sprink 500 Mg PO QHS Depakote Sprinkle (Divalproex Sodium) 125 Mg Cap.sprink 125 Mg PO BID92 Tylenol (Acetaminophen) 325 Mg Tablet 650 Mg PO PRN Q6HRS PRN Olanzapine Odt (Olanzapine) 5 Mg Tab.rapdis 5 Mg PO QHS Analgesic [place] (Methyl Salicylate/Menthol) 28 Gm Oint...g. 1 Beck TP PRN QID PRN Maalox Maximum Strength Susp (Mag Hydrox/Al Hydrox/Simeth) 355 Ml Oral.susp 15 Ml PO PRN AFTMEALHC PRN Milk Of Magnesia (Magnesium Hydroxide) 2,400 Mg/10 Ml Oral.susp 2,400 Mg PO PRN QHS PRN Vitamin B-12 (Cyanocobalamin (Vitamin B-12)) 1,000 Mcg Tablet 250 Mcg PO DAILY Lorazepam 0.5 Mg Tablet 0.5 Mg PO PRN Q4HRS PRN Dilantin (Phenytoin Sodium Extended) 100 Mg Capsule 100 Mg PO BID Aspirin 81 Mg Tab.chew 81 Mg PO DAILY I have reviewed the current psychotropics carefully including drug interactions. Risk benefit ratio favors no change other than as noted in my dictated progress note. Diagnosis: Problems: (1) Breakthrough seizure (2) Dementia with behavioral disturbance (3) Anxiety disorder (4) Dementia in Alzheimer's disease with delusions (5) Dementia in Alzheimer's disease with depression (6) Dementia, vascular, with delusions (7) Dementia, vascular, with depression (8) Impulse control disorder NAKIA KO MD May 30, 2017 21:06
[2017-05-31 05:55] VITALS: BP 143/53
[2017-05-31] MEDS: LACTOBACILLUS RHAMNOSUS GG 1 CAPSULE. PO SCH ×2 (07:41→19:02)
[2017-05-31] MEDS: SERTRALINE 100 MG TABLET. PO SCH (07:41)
[2017-05-31] MEDS: ASPIRIN 81 MG TAB.CHEW PO SCH (07:41)
[2017-05-31] MEDS: busPIRone 15 MG TABLET. PO SCH (07:41)
[2017-05-31] MEDS: POTASSIUM CHLORIDE 20 MEQ TABLET.ER. PO SCH (07:42)
[2017-05-31] MEDS: DIVALPROEX 125 MG CAP.SPRINK PO SCH ×3 (07:42→19:03)
[2017-05-31] MEDS: SENNOSIDES/DOCUSATE 8.6/50MG TABLET. PO SCH ×2 (07:42→19:02)
[2017-05-31] MEDS: PHENYTOIN SODIUM EXTENDED 100 MG CAPSULE PO SCH ×2 (07:42→19:02)
[2017-05-31] MEDS: CYANOCOBALAMIN (VITAMIN B-12) 250 MCG TABLET PO SCH (07:42)
[2017-05-31] MEDS: LORazepam 0.5 MG TABLET PO PRN ×2 (13:15→19:04)
[2017-05-31] MEDS: busPIRone 10 MG TABLET. PO SCH ×2 (13:16→17:53)
[2017-05-31 16:06] VITALS: BP 130/59
--- NOTE | 2017-05-31 18:08 | PN ---
DATE: 05/30/2017 This is a late entry 05/30/2017, covers elements not covered in my initial note 05/30/2017. Met with the patient in the evening of 05/30/2017. The patient received Ativan after lunch, to help with her anxiety, agitation. REVIEW OF SYSTEMS: No CV, , pulmonary, eye, ENT system symptoms on review. Reliability poor. MENTAL STATUS EXAM: Oriented to herself. Insight, judgment, recent and remote memory, attention, concentration, fund of knowledge poor, consistent with her diagnosis mentioned in my initial note. PLAN: Continue current psychotropics. Adjust as indicated. May need to increase BuSpar further. MAN Leandro KO MD DR: [email or web address]/luz JOB#: [id number] / [id number]
[2017-05-31] MEDS: MIRTAZAPINE 15 MG TABLET PO SCH (19:03)
--- NOTE | 2017-05-31 22:07 | PDOC ---
Exam Note: Dane Note: Please also refer to the separate dictated note~for this date of service dictated separately.~Patient seen individually. Discussed the patient with Nursing staff reviewed the chart.~Reviewed interim history and current functioning. Reviewed vital signs,~Labs/ Radiology~and current medications noted below. Continue current treatment with the changes noted in the dictated addendum note Assessment: Vital Signs: Vital Signs Date Time Temp Pulse Resp B/P (MAP) Pulse Ox O2 Delivery O2 Flow Rate FiO2 05/31/17 16:06 98.3 64 20 130/59 (82) 98 05/26/17 15:24 Room Air I&O Intake and Output 05/31/17 07:00 Intake Total 940 ml Balance 940 ml Intake Oral 940 ml # Bowel Movements 1 Current Medications: Meds: Current Medications Diphtheria/ Tetanus/Acell Pertussis (Boostrix) 0.5 ml ONCE ONCE VAX IM Last administered on 05/01/17at 22:36; Start 05/01/17 at 19:15; Stop 05/01/17 at 19:16 ; Status DC Lorazepam (Ativan) 2 mg 1X ONCE IM Last administered on 05/01/17at 19:45; Start 05/01/17 at 19:45; Stop 05/01/17 at 19:46; Status DC Diphenhydramine HCl (Benadryl) 50 mg 1X ONCE IM Last administered on at 19:45; Start 05/01/17 at 19:45; Stop 05/01/17 at 19:46; Status DC Diphenhydramine HCl (Benadryl) 50 mg STK-MED ONCE .ROUTE ; Start 05/01/17 at 19: 36; Stop 05/01/17 at 19:37; Status DC Lorazepam (Ativan) 1 mg STK-MED ONCE .ROUTE ; Start 05/01/17 at 19:38; Stop at 19:39; Status DC Midazolam HCl (Versed) 2 mg 1X ONCE IV ; Start 05/01/17 at 20:30; Stop at 20:31; Status DC Midazolam HCl (Versed) 5 mg STK-MED ONCE .ROUTE ; Start 05/01/17 at 20:25; Stop 05/01/17 at 20:26; Status DC Midazolam HCl (Versed) 5 mg 1X ONCE NS Last administered on 05/01/17at 20:40; Start 05/01/17 at 21:00; Stop 05/01/17 at 21:01; Status DC Ceftriaxone Sodium (Rocephin Im) 1 gm 1X ONCE IM Last administered on at 22:36; Start 05/01/17 at 21:15; Stop 05/01/17 at 21:16; Status DC Enoxaparin Sodium (Lovenox 60mg Syringe) 50 mg 1X ONCE SQ ; Start 05/01/17 at 21:45; Stop 05/01/17 at 21:45; Status DC Enoxaparin Sodium (Lovenox) 55 mg BID SQ ; Start 05/02/17 at 09:00; Stop at 09:00; Status DC Enoxaparin Sodium (Lovenox 60mg Syringe) 55 mg 1X ONCE SQ Last administered on 05/01/17at 22:35; Start 05/01/17 at 21:45; Stop 05/01/17 at 21:46; Status DC Iohexol (Omnipaque 300 Mg/ml) 75 ml 1X ONCE IV Last administered on 05/01/17at 22:11; Start 05/01/17 at 22:00; Stop 05/01/17 at 22:01; Status DC Midazolam HCl (Versed) 5 mg 1X ONCE IV ; Start 05/01/17 at 22:15; Stop at 22:18; Status DC Midazolam HCl (Versed) 1 mg 1X ONCE IV Last administered on 05/01/17at 22:30; Start 05/01/17 at 23:00; Stop 05/01/17 at 23:02; Status DC Cephalexin HCl (Keflex) 500 mg TID PO Last administered on 05/03/17at 20:27; Start 05/02/17 at 09:00; Stop 05/03/17 at 22:41; Status DC Alprazolam (Xanax) 0.25 mg QID PO Last administered on 05/02/17at 17:32; Start 05/02/17 at 09:00; Stop 05/02/17 at 19:27; Status DC Divalproex Sodium (Depakote Sprinkles) 125 mg BID92 PO Last administered on 05/11at 14:05; Start 05/02/17 at 09:00; Stop 05/11/17 at 18:42; Status DC Divalproex Sodium (Depakote Sprinkles) 500 mg QHS PO Last administered on 19:41; Start 05/02/17 at 21:00; Stop 05/07/17 at 18:37; Status DC Lorazepam (Ativan) 0.5 mg PRN Q4HRS PRN PO ANXIETY / AGITATION Last administered on 05/31/17at 19:04; Start 05/02/17 at 01:00 Lorazepam (Ativan Intensol) 0.5 mg PRN Q4HRS PRN PO ANXIETY / AGITATION Last administered on 05/29/17 11:25; Start 05/02/17 at 01:00 Olanzapine (ZyPREXA ZYDIS) 5 mg QHS PO Last administered on 05/07/17 20:07; Start 05/02/17 at 21:00; Stop 05/08/17 at 19:10; Status DC Sertraline HCl (Zoloft) 100 mg DAILY PO Last administered on 05/31/17 07:41; Start 05/02/17 at 09:00 Levofloxacin (Levaquin) 500 mg DAILY06 PO Last administered on 05/02/17at 08:53 ; Start 05/02/17 at 07:30; Stop 05/02/17 at 10:36; Status DC Lactobacillus Rhamnosus (Culturelle) 1 cap BID PO Last administered on 19:02; Start 05/02/17 at 09:00 Levofloxacin (Levaquin) 250 mg DAILY06 PO Last administered on 05/06/17at 07:45 ; Start 05/03/17 at 06:00; Stop 05/06/17 at 18:15; Status DC Alprazolam (Xanax) 0.25 mg TID PO Last administered on 05/06/17 14:25; Start 05/02/17 at 21:00; Stop 05/06/17 at 20:59; Status DC Alprazolam (Xanax) 0.25 mg BID PO Last administered on 05/09/17 19:50; Start at 21:00; Stop 05/10/17 at 08:59; Status DC Alprazolam (Xanax) 0.25 mg DAILY PO Last administered on 05/13/17 08:21; Start 05/10/17 at 09:00; Stop 05/14/17 at 08:59; Status DC Mirtazapine (Remeron) 7.5 mg QHS PO Last administered on 05/02/17 19:59; Start 05/02/17 at 21:00; Stop 05/03/17 at 19:31; Status DC Acetaminophen (Tylenol) 650 mg PRN Q6HRS PRN PO PAIN; Start 05/02/17 at 19:30 Aspirin (Children'S Aspirin) 81 mg DAILY PO Last administered on 05/31/17 07: 41; Start 05/03/17 at 09:00 Cyanocobalamin (Vitamin B-12) 250 mcg DAILY PO Last administered on 05/31/17at 07:42; Start 05/03/17 at 09:00 Al Hydroxide/Mg Hydroxide (Mylanta Plus Xs) 15 ml PRN AFTMEALHC PRN PO DYSPEPSIA; Start 05/02/17 at 19:30 Multi-Ingredient Ointment (Analgesic [place]) 1 ebck PRN QID PRN TP MUSCLE PAIN; Start 05/02/17 at 19:30 Phenytoin Sodium (Dilantin) 100 mg BID PO Last administered on 05/31/17 19:02 ; Start 05/02/17 at 21:00 Senna/Docusate Sodium (Senna Plus) 1 tab BID PO Last administered on 05/31/17 19:02; Start 05/02/17 at 21:00 Magnesium Hydroxide (Milk Of Magnesia) 2,400 mg PRN QHS PRN PO CONSTIPATION Last administered on 05/20/17at 11:56; Start 05/02/17 at 19:45 Potassium Chloride (Klor-Con) 20 meq DAILYWBKFT PO Last administered on 07:42; Start 05/03/17 at 08:00 Neomycin/ Polymyxin/ Bacitracin (Triple Antibiotic Ointment) 1 pkt BID TP Last administered on 05/08/17 08:51; Start 05/03/17 at 21:00; Stop 05/08/17 at 20:59; Status DC Mirtazapine (Remeron) 15 mg QHS PO Last administered on 05/31/17 19:03; Start 05/03/17 at 21:00 Trazodone HCl (Desyrel) 50 mg PRN QHS PRN PO SLEEP Last administered on 01:56; Start 05/03/17 at 19:30; Stop 05/16/17 at 18:59; Status DC Alprazolam (Xanax) 0.25 mg 1X ONCE PO Last administered on 05/05/17at 09:36; Start 05/05/17 at 10:00; Stop 05/05/17 at 10:01; Status DC Buspirone HCl (Buspar) 5 mg TID@0900,1300,1700 PO Last administered on at 16:43; Start 05/06/17 at 09:00; Stop 05/06/17 at 18:23; Status DC Buspirone HCl (Buspar) 5 mg BID@1300,1700 PO Last administered on 05/09/17 14: 08; Start 05/07/17 at 13:00; Stop 05/09/17 at 18:34; Status DC Buspirone HCl (Buspar) 10 mg DAILY PO Last administered on 05/08/17 08:49; Start 05/07/17 at 09:00; Stop 05/08/17 at 19:10; Status DC Divalproex Sodium (Depakote Sprinkles) 750 mg QHS PO Last administered on 19:03; Start 05/07/17 at 21:00 Olanzapine (ZyPREXA ZYDIS) 2.5 mg QHS PO Last administered on 05/09/17 19:48; Start 05/08/17 at 21:00; Stop 05/09/17 at 21:00; Status DC Divalproex Sodium (Depakote Sprinkles) 250 mg BID92 PO Last administered on 13:16; Start 05/12/17 at 09:00 Buspirone HCl (Buspar) 5 mg BID@0900,1300 PO Last administered on 05/18/17 13: 00; Start 05/15/17 at 13:00; Stop 05/18/17 at 15:50; Status DC Trazodone HCl (Desyrel) 50 mg PRN QHS PRN PO INSOMNIA, MAY REPEAT X1 Last administered on 05/30/17at 19:43; Start 05/16/17 at 19:00 Buspirone HCl (Buspar) 5 mg TID PO Last administered on 05/19/17at 13:50; Start 05/18/17 at 21:00; Stop 05/19/17 at 18:46; Status DC Buspirone HCl (Buspar) 5 mg [id number] PO Last administered on 05/21/17at 12:43; Start 05/19/17 at 21:00; Stop 05/21/17 at 14:16; Status DC Buspirone HCl (Buspar) 5 mg BID@0900,1700 PO Last administered on 05/24/17at 07: 52; Start 05/21/17 at 17:00; Stop 05/24/17 at 16:26; Status DC Buspirone HCl (Buspar) 10 mg DAILY@1300 PO Last administered on 05/24/17at 13:00 ; Start 05/22/17 at 13:00; Stop 05/24/17 at 16:26; Status DC Buspirone HCl (Buspar) 10 mg DAILY@0900,1300,1700 PO Last administered on at 17:20; Start 05/24/17 at 17:00; Stop 05/27/17 at 17:51; Status DC Buspirone HCl (Buspar) 10 mg BID@1300,1700 PO Last administered on 05/31/17at 17 :53; Start 05/28/17 at 13:00 Buspirone HCl (Buspar) 15 mg DAILY PO Last administered on 05/31/17at 07:41; Start 05/28/17 at 09:00 Lorazepam (Ativan) 0.5 mg DAILYWLUN PO ; Start 06/01/17 at 12:00 Active Scripts Active Reported Klor-Con (Potassium Chloride) 20 Meq Packet 20 Meq PO DAILY Xanax (Alprazolam) 0.25 Mg Tablet 0.25 Mg PO QID Zoloft (Sertraline Hcl) 100 Mg Tablet 100 Mg PO DAILY Lorazepam Intensol (Lorazepam) 2 Mg/1 Ml Oral.conc 0.5 Mg PO PRN Q4HRS PRN Senna S Tablet (Sennosides/Docusate Sodium) 1 Each Tablet 1 Tab PO BID Depakote Sprinkle (Divalproex Sodium) 125 Mg Cap.sprink 500 Mg PO QHS Depakote Sprinkle (Divalproex Sodium) 125 Mg Cap.sprink 125 Mg PO BID92 Tylenol (Acetaminophen) 325 Mg Tablet 650 Mg PO PRN Q6HRS PRN Olanzapine Odt (Olanzapine) 5 Mg Tab.rapdis 5 Mg PO QHS Analgesic [place] (Methyl Salicylate/Menthol) 28 Gm Oint...g. 1 Beck TP PRN QID PRN Maalox Maximum Strength Susp (Mag Hydrox/Al Hydrox/Simeth) 355 Ml Oral.susp 15 Ml PO PRN AFTMEALHC PRN Milk Of Magnesia (Magnesium Hydroxide) 2,400 Mg/10 Ml Oral.susp 2,400 Mg PO PRN QHS PRN Vitamin B-12 (Cyanocobalamin (Vitamin B-12)) 1,000 Mcg Tablet 250 Mcg PO DAILY Lorazepam 0.5 Mg Tablet 0.5 Mg PO PRN Q4HRS PRN Dilantin (Phenytoin Sodium Extended) 100 Mg Capsule 100 Mg PO BID Aspirin 81 Mg Tab.chew 81 Mg PO DAILY I have reviewed the current psychotropics carefully including drug interactions. Risk benefit ratio favors no change other than as noted in my dictated progress note. 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
[2017-06-01 05:58] VITALS: BP 104/46
[2017-06-01] MEDS: DIVALPROEX 125 MG CAP.SPRINK PO SCH ×3 (08:43→20:42)
[2017-06-01] MEDS: PHENYTOIN SODIUM EXTENDED 100 MG CAPSULE PO SCH ×2 (08:43→20:42)
[2017-06-01] MEDS: SENNOSIDES/DOCUSATE 8.6/50MG TABLET. PO SCH ×2 (08:43→20:42)
[2017-06-01] MEDS: ASPIRIN 81 MG TAB.CHEW PO SCH (08:43)
[2017-06-01] MEDS: busPIRone 15 MG TABLET. PO SCH (08:44)
[2017-06-01] MEDS: CYANOCOBALAMIN (VITAMIN B-12) 250 MCG TABLET PO SCH (08:44)
[2017-06-01] MEDS: LACTOBACILLUS RHAMNOSUS GG 1 CAPSULE. PO SCH ×2 (08:44→20:42)
[2017-06-01] MEDS: POTASSIUM CHLORIDE 20 MEQ TABLET.ER. PO SCH (08:44)
[2017-06-01] MEDS: SERTRALINE 100 MG TABLET. PO SCH (08:44)
[2017-06-01] MEDS: LORazepam 0.5 MG TABLET PO SCH ×2 (11:58→20:42)
[2017-06-01] MEDS: busPIRone 10 MG TABLET. PO SCH ×2 (13:35→17:27)
[2017-06-01 16:12] VITALS: BP 114/66
[2017-06-01] MEDS: MIRTAZAPINE 15 MG TABLET PO SCH (20:42)
--- NOTE | 2017-06-01 21:05 | PDOC ---
Exam Note: Dane Note: Please also refer to the separate dictated note~for this date of service dictated separately.~Patient seen individually. Discussed the patient with Nursing staff reviewed the chart.~Reviewed interim history and current functioning. Reviewed vital signs,~Labs/ Radiology~and current medications noted below. Continue current treatment with the changes noted in the dictated addendum note Assessment: Vital Signs: Vital Signs Date Time Temp Pulse Resp B/P (MAP) Pulse Ox O2 Delivery O2 Flow Rate FiO2 06/01/17 16:12 97.8 72 16 114/66 (82) 98 05/26/17 15:24 Room Air I&O Intake and Output 06/01/17 07:00 Intake Total 1080 ml Balance 1080 ml Intake Oral 1080 ml # Voids 1 # Bowel Movements 1 Current Medications: Meds: Current Medications Diphtheria/ Tetanus/Acell Pertussis (Boostrix) 0.5 ml ONCE ONCE VAX IM Last administered on 05/01/17at 22:36; Start 05/01/17 at 19:15; Stop 05/01/17 at 19:16 ; Status DC Lorazepam (Ativan) 2 mg 1X ONCE IM Last administered on 05/01/17at 19:45; Start 05/01/17 at 19:45; Stop 05/01/17 at 19:46; Status DC Diphenhydramine HCl (Benadryl) 50 mg 1X ONCE IM Last administered on at 19:45; Start 05/01/17 at 19:45; Stop 05/01/17 at 19:46; Status DC Diphenhydramine HCl (Benadryl) 50 mg STK-MED ONCE .ROUTE ; Start 05/01/17 at 19: 36; Stop 05/01/17 at 19:37; Status DC Lorazepam (Ativan) 1 mg STK-MED ONCE .ROUTE ; Start 05/01/17 at 19:38; Stop at 19:39; Status DC Midazolam HCl (Versed) 2 mg 1X ONCE IV ; Start 05/01/17 at 20:30; Stop at 20:31; Status DC Midazolam HCl (Versed) 5 mg STK-MED ONCE .ROUTE ; Start 05/01/17 at 20:25; Stop 05/01/17 at 20:26; Status DC Midazolam HCl (Versed) 5 mg 1X ONCE NS Last administered on 05/01/17at 20:40; Start 05/01/17 at 21:00; Stop 05/01/17 at 21:01; Status DC Ceftriaxone Sodium (Rocephin Im) 1 gm 1X ONCE IM Last administered on at 22:36; Start 05/01/17 at 21:15; Stop 05/01/17 at 21:16; Status DC Enoxaparin Sodium (Lovenox 60mg Syringe) 50 mg 1X ONCE SQ ; Start 05/01/17 at 21:45; Stop 05/01/17 at 21:45; Status DC Enoxaparin Sodium (Lovenox) 55 mg BID SQ ; Start 05/02/17 at 09:00; Stop at 09:00; Status DC Enoxaparin Sodium (Lovenox 60mg Syringe) 55 mg 1X ONCE SQ Last administered on 05/01/17at 22:35; Start 05/01/17 at 21:45; Stop 05/01/17 at 21:46; Status DC Iohexol (Omnipaque 300 Mg/ml) 75 ml 1X ONCE IV Last administered on 05/01/17at 22:11; Start 05/01/17 at 22:00; Stop 05/01/17 at 22:01; Status DC Midazolam HCl (Versed) 5 mg 1X ONCE IV ; Start 05/01/17 at 22:15; Stop at 22:18; Status DC Midazolam HCl (Versed) 1 mg 1X ONCE IV Last administered on 05/01/17at 22:30; Start 05/01/17 at 23:00; Stop 05/01/17 at 23:02; Status DC Cephalexin HCl (Keflex) 500 mg TID PO Last administered on 05/03/17at 20:27; Start 05/02/17 at 09:00; Stop 05/03/17 at 22:41; Status DC Alprazolam (Xanax) 0.25 mg QID PO Last administered on 05/02/17at 17:32; Start 05/02/17 at 09:00; Stop 05/02/17 at 19:27; Status DC Divalproex Sodium (Depakote Sprinkles) 125 mg BID92 PO Last administered on 05/11at 14:05; Start 05/02/17 at 09:00; Stop 05/11/17 at 18:42; Status DC Divalproex Sodium (Depakote Sprinkles) 500 mg QHS PO Last administered on at 19:41; Start 05/02/17 at 21:00; Stop 05/07/17 at 18:37; Status DC Lorazepam (Ativan) 0.5 mg PRN Q4HRS PRN PO ANXIETY / AGITATION Last administered on 05/31/17at 19:04; Start 05/02/17 at 01:00 Lorazepam (Ativan Intensol) 0.5 mg PRN Q4HRS PRN PO ANXIETY / AGITATION Last administered on 05/29/17at 11:25; Start 05/02/17 at 01:00 Olanzapine (ZyPREXA ZYDIS) 5 mg QHS PO Last administered on 05/07/17at 20:07; Start 05/02/17 at 21:00; Stop 05/08/17 at 19:10; Status DC Sertraline HCl (Zoloft) 100 mg DAILY PO Last administered on 06/01/17 08:44; Start 05/02/17 at 09:00 Levofloxacin (Levaquin) 500 mg DAILY06 PO Last administered on 05/02/17at 08:53 ; Start 05/02/17 at 07:30; Stop 05/02/17 at 10:36; Status DC Lactobacillus Rhamnosus (Culturelle) 1 cap BID PO Last administered on at 20:42; Start 05/02/17 at 09:00 Levofloxacin (Levaquin) 250 mg DAILY06 PO Last administered on 05/06/17at 07:45 ; Start 05/03/17 at 06:00; Stop 05/06/17 at 18:15; Status DC Alprazolam (Xanax) 0.25 mg TID PO Last administered on 05/06/17at 14:25; Start 05/02/17 at 21:00; Stop 05/06/17 at 20:59; Status DC Alprazolam (Xanax) 0.25 mg BID PO Last administered on 05/09/17at 19:50; Start at 21:00; Stop 05/10/17 at 08:59; Status DC Alprazolam (Xanax) 0.25 mg DAILY PO Last administered on 05/13/17 08:21; Start 05/10/17 at 09:00; Stop 05/14/17 at 08:59; Status DC Mirtazapine (Remeron) 7.5 mg QHS PO Last administered on 05/02/17at 19:59; Start 05/02/17 at 21:00; Stop 05/03/17 at 19:31; Status DC Acetaminophen (Tylenol) 650 mg PRN Q6HRS PRN PO PAIN; Start 05/02/17 at 19:30 Aspirin (Children'S Aspirin) 81 mg DAILY PO Last administered on 06/01/17 08: 43; Start 05/03/17 at 09:00 Cyanocobalamin (Vitamin B-12) 250 mcg DAILY PO Last administered on 06/01/17at 08:44; Start 05/03/17 at 09:00 Al Hydroxide/Mg Hydroxide (Mylanta Plus Xs) 15 ml PRN AFTMEALHC PRN PO DYSPEPSIA; Start 05/02/17 at 19:30 Multi-Ingredient Ointment (Analgesic [place]) 1 beck PRN QID PRN TP MUSCLE PAIN; Start 05/02/17 at 19:30 Phenytoin Sodium (Dilantin) 100 mg BID PO Last administered on 06/01/17at 20:42 ; Start 05/02/17 at 21:00 Senna/Docusate Sodium (Senna Plus) 1 tab BID PO Last administered on 06/01/17at 20:42; Start 05/02/17 at 21:00 Magnesium Hydroxide (Milk Of Magnesia) 2,400 mg PRN QHS PRN PO CONSTIPATION Last administered on 05/20/17at 11:56; Start 05/02/17 at 19:45 Potassium Chloride (Klor-Con) 20 meq DAILYWBKFT PO Last administered on at 08:44; Start 05/03/17 at 08:00 Neomycin/ Polymyxin/ Bacitracin (Triple Antibiotic Ointment) 1 pkt BID TP Last administered on 05/08/17at 08:51; Start 05/03/17 at 21:00; Stop 05/08/17 at 20:59; Status DC Mirtazapine (Remeron) 15 mg QHS PO Last administered on 06/01/17 20:42; Start 05/03/17 at 21:00 Trazodone HCl (Desyrel) 50 mg PRN QHS PRN PO SLEEP Last administered on at 01:56; Start 05/03/17 at 19:30; Stop 05/16/17 at 18:59; Status DC Alprazolam (Xanax) 0.25 mg 1X ONCE PO Last administered on 05/05/17at 09:36; Start 05/05/17 at 10:00; Stop 05/05/17 at 10:01; Status DC Buspirone HCl (Buspar) 5 mg TID@0900,1300,1700 PO Last administered on at 16:43; Start 05/06/17 at 09:00; Stop 05/06/17 at 18:23; Status DC Buspirone HCl (Buspar) 5 mg BID@1300,1700 PO Last administered on 05/09/17 14: 08; Start 05/07/17 at 13:00; Stop 05/09/17 at 18:34; Status DC Buspirone HCl (Buspar) 10 mg DAILY PO Last administered on 05/08/17at 08:49; Start 05/07/17 at 09:00; Stop 05/08/17 at 19:10; Status DC Divalproex Sodium (Depakote Sprinkles) 750 mg QHS PO Last administered on 20:42; Start 05/07/17 at 21:00 Olanzapine (ZyPREXA ZYDIS) 2.5 mg QHS PO Last administered on 05/09/17 19:48; Start 05/08/17 at 21:00; Stop 05/09/17 at 21:00; Status DC Divalproex Sodium (Depakote Sprinkles) 250 mg BID92 PO Last administered on 13:35; Start 05/12/17 at 09:00 Buspirone HCl (Buspar) 5 mg BID@0900,1300 PO Last administered on 05/18/17 13: 00; Start 05/15/17 at 13:00; Stop 05/18/17 at 15:50; Status DC Trazodone HCl (Desyrel) 50 mg PRN QHS PRN PO INSOMNIA, MAY REPEAT X1 Last administered on 05/30/17at 19:43; Start 05/16/17 at 19:00 Buspirone HCl (Buspar) 5 mg TID PO Last administered on 05/19/17at 13:50; Start 05/18/17 at 21:00; Stop 05/19/17 at 18:46; Status DC Buspirone HCl (Buspar) 5 mg [id number] PO Last administered on 05/21/17at 12:43; Start 05/19/17 at 21:00; Stop 05/21/17 at 14:16; Status DC Buspirone HCl (Buspar) 5 mg BID@0900,1700 PO Last administered on 05/24/17at 07: 52; Start 05/21/17 at 17:00; Stop 05/24/17 at 16:26; Status DC Buspirone HCl (Buspar) 10 mg DAILY@1300 PO Last administered on 05/24/17at 13:00 ; Start 05/22/17 at 13:00; Stop 05/24/17 at 16:26; Status DC Buspirone HCl (Buspar) 10 mg DAILY@0900,1300,1700 PO Last administered on at 17:20; Start 05/24/17 at 17:00; Stop 05/27/17 at 17:51; Status DC Buspirone HCl (Buspar) 10 mg BID@1300,1700 PO Last administered on 06/01/17at 17 :27; Start 05/28/17 at 13:00 Buspirone HCl (Buspar) 15 mg DAILY PO Last administered on 06/01/17at 08:44; Start 05/28/17 at 09:00 Lorazepam (Ativan) 0.5 mg DAILYWLUN PO Last administered on 06/01/17at 20:42; Start 06/01/17 at 12:00 Active Scripts Active Reported Klor-Con (Potassium Chloride) 20 Meq Packet 20 Meq PO DAILY Xanax (Alprazolam) 0.25 Mg Tablet 0.25 Mg PO QID Zoloft (Sertraline Hcl) 100 Mg Tablet 100 Mg PO DAILY Lorazepam Intensol (Lorazepam) 2 Mg/1 Ml Oral.conc 0.5 Mg PO PRN Q4HRS PRN Senna S Tablet (Sennosides/Docusate Sodium) 1 Each Tablet 1 Tab PO BID Depakote Sprinkle (Divalproex Sodium) 125 Mg Cap.sprink 500 Mg PO QHS Depakote Sprinkle (Divalproex Sodium) 125 Mg Cap.sprink 125 Mg PO BID92 Tylenol (Acetaminophen) 325 Mg Tablet 650 Mg PO PRN Q6HRS PRN Olanzapine Odt (Olanzapine) 5 Mg Tab.rapdis 5 Mg PO QHS Analgesic [place] (Methyl Salicylate/Menthol) 28 Gm Oint...g. 1 Beck TP PRN QID PRN Maalox Maximum Strength Susp (Mag Hydrox/Al Hydrox/Simeth) 355 Ml Oral.susp 15 Ml PO PRN AFTMEALHC PRN Milk Of Magnesia (Magnesium Hydroxide) 2,400 Mg/10 Ml Oral.susp 2,400 Mg PO PRN QHS PRN Vitamin B-12 (Cyanocobalamin (Vitamin B-12)) 1,000 Mcg Tablet 250 Mcg PO DAILY Lorazepam 0.5 Mg Tablet 0.5 Mg PO PRN Q4HRS PRN Dilantin (Phenytoin Sodium Extended) 100 Mg Capsule 100 Mg PO BID Aspirin 81 Mg Tab.chew 81 Mg PO DAILY I have reviewed the current psychotropics carefully including drug interactions. Risk benefit ratio favors no change other than as noted in my dictated progress note. Diagnosis: Problems: (1) Breakthrough seizure (2) Dementia with behavioral disturbance (3) Anxiety disorder (4) Dementia in Alzheimer's disease with delusions (5) Dementia in Alzheimer's disease with depression (6) Dementia, vascular, with delusions (7) Dementia, vascular, with depression (8) Impulse control disorder NAKIA KO MD Jun 01, 2017 21:05
[2017-06-02 06:06] VITALS: BP 145/72
[2017-06-02 07:47] LABS: BASO % 1 % (0-3); EOS # 0.3 x10^3/uL (0.0-0.7); EOS % 8 % (0-3); HEMOGLOBIN 11.2 g/dL (12.0-15.5); LYMPH # 1.3 x10^3/uL (1.0-4.8); LYMPH % 34 % (24-48); MEAN CORPUSCULAR HEMOGLOBIN 32 pg (25-35); MEAN CORPUSCULAR HGB CONC 34 g/dL (31-37); MEAN CORPUSCULAR VOLUME 94 fL (79-100); MONO # 0.4 x10^3/uL (0.0-1.1); MONO % 11 % (0-9); NEUT # 1.8 x10^3uL (1.8-7.7); NEUT % 47 % (31-73); PLATELET COUNT 175 x10^3/uL (140-400); RED CELL DISTRIBUTION WIDTH 14.8 % (11.5-14.5); WHITE BLOOD COUNT 3.8 x10^3/uL (4.0-11.0)
[2017-06-02 08:07] LABS: ALBUMIN 2.9 g/dL (3.4-5.0); CALCIUM 8.3 mg/dL (8.5-10.1); CREATININE 0.7 mg/dL (0.6-1.0); GFR 79.3; MAGNESIUM 2.1 mg/dL (1.8-2.4); POTASSIUM 4.1 mmol/L (3.5-5.1); TOTAL BILIRUBIN 0.3 mg/dL (0.2-1.0); TOTAL PROTEIN 5.8 g/dL (6.4-8.2)
[2017-06-02] MEDS: LACTOBACILLUS RHAMNOSUS GG 1 CAPSULE. PO SCH ×2 (08:51→19:31)
[2017-06-02] MEDS: CYANOCOBALAMIN (VITAMIN B-12) 250 MCG TABLET PO SCH (08:51)
[2017-06-02] MEDS: POTASSIUM CHLORIDE 20 MEQ TABLET.ER. PO SCH (08:51)
[2017-06-02] MEDS: SENNOSIDES/DOCUSATE 8.6/50MG TABLET. PO SCH ×2 (08:51→19:31)
[2017-06-02] MEDS: SERTRALINE 100 MG TABLET. PO SCH (08:51)
[2017-06-02] MEDS: ASPIRIN 81 MG TAB.CHEW PO SCH (08:51)
[2017-06-02] MEDS: DIVALPROEX 125 MG CAP.SPRINK PO SCH ×3 (08:52→19:31)
[2017-06-02] MEDS: PHENYTOIN SODIUM EXTENDED 100 MG CAPSULE PO SCH ×2 (08:52→19:31)
[2017-06-02] MEDS: busPIRone 15 MG TABLET. PO SCH ×2 (08:53→13:29)
[2017-06-02] MEDS: LORazepam 0.5 MG TABLET PO PRN ×2 (09:02→17:09)
[2017-06-02] MEDS: busPIRone 10 MG TABLET. PO SCH ×2 (13:00→17:06)
[2017-06-02 16:11] VITALS: BP 147/55
[2017-06-02] MEDS: MIRTAZAPINE 15 MG TABLET PO SCH (19:31)
--- NOTE | 2017-06-02 21:01 | PDOC ---
Exam Note: Dane Note: Please also refer to the separate dictated note~for this date of service dictated separately.~Patient seen individually. Discussed the patient with Nursing staff reviewed the chart.~Reviewed interim history and current functioning. Reviewed vital signs,~Labs/ Radiology~and current medications noted below. Continue current treatment with the changes noted in the dictated addendum note Assessment: Vital Signs: Vital Signs Date Time Temp Pulse Resp B/P (MAP) Pulse Ox O2 Delivery O2 Flow Rate FiO2 06/02/17 16:11 98.1 60 18 147/55 (85) 97 I&O Intake and Output 06/02/17 07:00 Intake Total 1080 ml Balance 1080 ml Intake Oral 1080 ml Labs: Laboratory Tests Test 06/02/17 07:10 White Blood Count 3.8 x10^3/uL (4.0-11.0) L Red Blood Count 3.50 x10^6/uL (3.50-5.40) Hemoglobin 11.2 g/dL (12.0-15.5) L Hematocrit 33.0 % (36.0-47.0) L Mean Corpuscular Volume 94 fL (79-100) Mean Corpuscular Hemoglobin 32 pg (25-35) Mean Corpuscular Hemoglobin Concent 34 g/dL (31-37) Red Cell Distribution Width 14.8 % (11.5-14.5) H Platelet Count 175 x10^3/uL (140-400) Neutrophils (%) (Auto) 47 % (31-73) Lymphocytes (%) (Auto) 34 % (24-48) Monocytes (%) (Auto) 11 % (0-9) H Eosinophils (%) (Auto) 8 % (0-3) H Basophils (%) (Auto) 1 % (0-3) Neutrophils # (Auto) 1.8 x10^3uL (1.8-7.7) Lymphocytes # (Auto) 1.3 x10^3/uL (1.0-4.8) Monocytes # (Auto) 0.4 x10^3/uL (0.0-1.1) Eosinophils # (Auto) 0.3 x10^3/uL (0.0-0.7) Basophils # (Auto) 0.0 x10^3/uL (0.0-0.2) Sodium Level 144 mmol/L (136-145) Potassium Level 4.1 mmol/L (3.5-5.1) Chloride Level 109 mmol/L (98-107) H Carbon Dioxide Level 28 mmol/L (21-32) Anion Gap 7 (6-14) Blood Urea Nitrogen 27 mg/dL (7-20) H Creatinine 0.7 mg/dL (0.6-1.0) Estimated GFR (Cockcroft-Gault) 79.3 BUN/Creatinine Ratio 39 (6-20) H Glucose Level 82 mg/dL (70-99) Calcium Level 8.3 mg/dL (8.5-10.1) L Magnesium Level 2.1 mg/dL (1.8-2.4) Total Bilirubin 0.3 mg/dL (0.2-1.0) Aspartate Amino Transferase (AST) 26 U/L (15-37) Alanine Aminotransferase (ALT) 26 U/L (14-59) Alkaline Phosphatase 76 U/L (46-116) Total Protein 5.8 g/dL (6.4-8.2) L Albumin 2.9 g/dL (3.4-5.0) L Albumin/Globulin Ratio 1.0 (1.0-1.7) Current Medications: Meds: Current Medications Diphtheria/ Tetanus/Acell Pertussis (Boostrix) 0.5 ml ONCE ONCE VAX IM Last administered on 05/01/17at 22:36; Start 05/01/17 at 19:15; Stop 05/01/17 at 19:16 ; Status DC Lorazepam (Ativan) 2 mg 1X ONCE IM Last administered on 05/01/17at 19:45; Start 05/01/17 at 19:45; Stop 05/01/17 at 19:46; Status DC Diphenhydramine HCl (Benadryl) 50 mg 1X ONCE IM Last administered on at 19:45; Start 05/01/17 at 19:45; Stop 05/01/17 at 19:46; Status DC Diphenhydramine HCl (Benadryl) 50 mg STK-MED ONCE .ROUTE ; Start 05/01/17 at 19: 36; Stop 05/01/17 at 19:37; Status DC Lorazepam (Ativan) 1 mg STK-MED ONCE .ROUTE ; Start 05/01/17 at 19:38; Stop at 19:39; Status DC Midazolam HCl (Versed) 2 mg 1X ONCE IV ; Start 05/01/17 at 20:30; Stop at 20:31; Status DC Midazolam HCl (Versed) 5 mg STK-MED ONCE .ROUTE ; Start 05/01/17 at 20:25; Stop 05/01/17 at 20:26; Status DC Midazolam HCl (Versed) 5 mg 1X ONCE NS Last administered on 05/01/17at 20:40; Start 05/01/17 at 21:00; Stop 05/01/17 at 21:01; Status DC Ceftriaxone Sodium (Rocephin Im) 1 gm 1X ONCE IM Last administered on at 22:36; Start 05/01/17 at 21:15; Stop 05/01/17 at 21:16; Status DC Enoxaparin Sodium (Lovenox 60mg Syringe) 50 mg 1X ONCE SQ ; Start 05/01/17 at 21:45; Stop 05/01/17 at 21:45; Status DC Enoxaparin Sodium (Lovenox) 55 mg BID SQ ; Start 05/02/17 at 09:00; Stop at 09:00; Status DC Enoxaparin Sodium (Lovenox 60mg Syringe) 55 mg 1X ONCE SQ Last administered on 05/01/17at 22:35; Start 05/01/17 at 21:45; Stop 05/01/17 at 21:46; Status DC Iohexol (Omnipaque 300 Mg/ml) 75 ml 1X ONCE IV Last administered on 05/01/17at 22:11; Start 05/01/17 at 22:00; Stop 05/01/17 at 22:01; Status DC Midazolam HCl (Versed) 5 mg 1X ONCE IV ; Start 05/01/17 at 22:15; Stop at 22:18; Status DC Midazolam HCl (Versed) 1 mg 1X ONCE IV Last administered on 05/01/17at 22:30; Start 05/01/17 at 23:00; Stop 05/01/17 at 23:02; Status DC Cephalexin HCl (Keflex) 500 mg TID PO Last administered on 05/03/17at 20:27; Start 05/02/17 at 09:00; Stop 05/03/17 at 22:41; Status DC Alprazolam (Xanax) 0.25 mg QID PO Last administered on 05/02/17at 17:32; Start 05/02/17 at 09:00; Stop 05/02/17 at 19:27; Status DC Divalproex Sodium (Depakote Sprinkles) 125 mg BID92 PO Last administered on 05/11 14:05; Start 05/02/17 at 09:00; Stop 05/11/17 at 18:42; Status DC Divalproex Sodium (Depakote Sprinkles) 500 mg QHS PO Last administered on 19:41; Start 05/02/17 at 21:00; Stop 05/07/17 at 18:37; Status DC Lorazepam (Ativan) 0.5 mg PRN Q4HRS PRN PO ANXIETY / AGITATION Last administered on 06/02/17at 17:09; Start 05/02/17 at 01:00 Lorazepam (Ativan Intensol) 0.5 mg PRN Q4HRS PRN PO ANXIETY / AGITATION Last administered on 05/29/17 11:25; Start 05/02/17 at 01:00 Olanzapine (ZyPREXA ZYDIS) 5 mg QHS PO Last administered on 05/07/17at 20:07; Start 05/02/17 at 21:00; Stop 05/08/17 at 19:10; Status DC Sertraline HCl (Zoloft) 100 mg DAILY PO Last administered on 06/02/17 08:51; Start 05/02/17 at 09:00 Levofloxacin (Levaquin) 500 mg DAILY06 PO Last administered on 05/02/17at 08:53 ; Start 05/02/17 at 07:30; Stop 05/02/17 at 10:36; Status DC Lactobacillus Rhamnosus (Culturelle) 1 cap BID PO Last administered on at 19:31; Start 05/02/17 at 09:00 Levofloxacin (Levaquin) 250 mg DAILY06 PO Last administered on 05/06/17at 07:45 ; Start 05/03/17 at 06:00; Stop 05/06/17 at 18:15; Status DC Alprazolam (Xanax) 0.25 mg TID PO Last administered on 05/06/17 14:25; Start 05/02/17 at 21:00; Stop 05/06/17 at 20:59; Status DC Alprazolam (Xanax) 0.25 mg BID PO Last administered on 05/09/17 19:50; Start at 21:00; Stop 05/10/17 at 08:59; Status DC Alprazolam (Xanax) 0.25 mg DAILY PO Last administered on 05/13/17 08:21; Start 05/10/17 at 09:00; Stop 05/14/17 at 08:59; Status DC Mirtazapine (Remeron) 7.5 mg QHS PO Last administered on 05/02/17 19:59; Start 05/02/17 at 21:00; Stop 05/03/17 at 19:31; Status DC Acetaminophen (Tylenol) 650 mg PRN Q6HRS PRN PO PAIN; Start 05/02/17 at 19:30 Aspirin (Children'S Aspirin) 81 mg DAILY PO Last administered on 06/02/17 08: 51; Start 05/03/17 at 09:00 Cyanocobalamin (Vitamin B-12) 250 mcg DAILY PO Last administered on 06/02/17 08:51; Start 05/03/17 at 09:00 Al Hydroxide/Mg Hydroxide (Mylanta Plus Xs) 15 ml PRN AFTMEALHC PRN PO DYSPEPSIA; Start 05/02/17 at 19:30 Multi-Ingredient Ointment (Analgesic [place]) 1 beck PRN QID PRN TP MUSCLE PAIN; Start 05/02/17 at 19:30 Phenytoin Sodium (Dilantin) 100 mg BID PO Last administered on 06/02/17 19:31 ; Start 05/02/17 at 21:00 Senna/Docusate Sodium (Senna Plus) 1 tab BID PO Last administered on 06/02/17 19:31; Start 05/02/17 at 21:00 Magnesium Hydroxide (Milk Of Magnesia) 2,400 mg PRN QHS PRN PO CONSTIPATION Last administered on 05/20/17 11:56; Start 05/02/17 at 19:45 Potassium Chloride (Klor-Con) 20 meq DAILYWBKFT PO Last administered on 08:51; Start 05/03/17 at 08:00 Neomycin/ Polymyxin/ Bacitracin (Triple Antibiotic Ointment) 1 pkt BID TP Last administered on 05/08/17at 08:51; Start 05/03/17 at 21:00; Stop 05/08/17 at 20:59; Status DC Mirtazapine (Remeron) 15 mg QHS PO Last administered on 06/02/17at 19:31; Start 05/03/17 at 21:00 Trazodone HCl (Desyrel) 50 mg PRN QHS PRN PO SLEEP Last administered on 01:56; Start 05/03/17 at 19:30; Stop 05/16/17 at 18:59; Status DC Alprazolam (Xanax) 0.25 mg 1X ONCE PO Last administered on 05/05/17at 09:36; Start 05/05/17 at 10:00; Stop 05/05/17 at 10:01; Status DC Buspirone HCl (Buspar) 5 mg TID@0900,1300,1700 PO Last administered on at 16:43; Start 05/06/17 at 09:00; Stop 05/06/17 at 18:23; Status DC Buspirone HCl (Buspar) 5 mg BID@1300,1700 PO Last administered on 05/09/17 14: 08; Start 05/07/17 at 13:00; Stop 05/09/17 at 18:34; Status DC Buspirone HCl (Buspar) 10 mg DAILY PO Last administered on 05/08/17at 08:49; Start 05/07/17 at 09:00; Stop 05/08/17 at 19:10; Status DC Divalproex Sodium (Depakote Sprinkles) 750 mg QHS PO Last administered on 19:31; Start 05/07/17 at 21:00 Olanzapine (ZyPREXA ZYDIS) 2.5 mg QHS PO Last administered on 05/09/17at 19:48; Start 05/08/17 at 21:00; Stop 05/09/17 at 21:00; Status DC Divalproex Sodium (Depakote Sprinkles) 250 mg BID92 PO Last administered on at 13:29; Start 05/12/17 at 09:00 Buspirone HCl (Buspar) 5 mg BID@0900,1300 PO Last administered on 05/18/17at 13: 00; Start 05/15/17 at 13:00; Stop 05/18/17 at 15:50; Status DC Trazodone HCl (Desyrel) 50 mg PRN QHS PRN PO INSOMNIA, MAY REPEAT X1 Last administered on 05/30/17at 19:43; Start 05/16/17 at 19:00 Buspirone HCl (Buspar) 5 mg TID PO Last administered on 05/19/17at 13:50; Start 05/18/17 at 21:00; Stop 05/19/17 at 18:46; Status DC Buspirone HCl (Buspar) 5 mg [id number] PO Last administered on 05/21/17at 12:43; Start 05/19/17 at 21:00; Stop 05/21/17 at 14:16; Status DC Buspirone HCl (Buspar) 5 mg BID@0900,1700 PO Last administered on 05/24/17at 07: 52; Start 05/21/17 at 17:00; Stop 05/24/17 at 16:26; Status DC Buspirone HCl (Buspar) 10 mg DAILY@1300 PO Last administered on 05/24/17at 13:00 ; Start 05/22/17 at 13:00; Stop 05/24/17 at 16:26; Status DC Buspirone HCl (Buspar) 10 mg DAILY@0900,1300,1700 PO Last administered on at 17:20; Start 05/24/17 at 17:00; Stop 05/27/17 at 17:51; Status DC Buspirone HCl (Buspar) 10 mg BID@1300,1700 PO Last administered on 06/01/17at 17 :27; Start 05/28/17 at 13:00; Stop 06/02/17 at 13:00; Status DC Buspirone HCl (Buspar) 15 mg DAILY PO Last administered on 06/01/17at 08:44; Start 05/28/17 at 09:00; Stop 06/01/17 at 21:57; Status DC Lorazepam (Ativan) 0.5 mg DAILYWLUN PO Last administered on 06/01/17at 20:42; Start 06/01/17 at 12:00 Buspirone HCl (Buspar) 15 mg BID@0900,1300 PO Last administered on 06/02/17at 13 :29; Start 06/02/17 at 09:00 Buspirone HCl (Buspar) 10 mg DAILY@1700 PO Last administered on 06/02/17at 17:06 ; Start 06/02/17 at 17:00 Active Scripts Active Reported Klor-Con (Potassium Chloride) 20 Meq Packet 20 Meq PO DAILY Xanax (Alprazolam) 0.25 Mg Tablet 0.25 Mg PO QID Zoloft (Sertraline Hcl) 100 Mg Tablet 100 Mg PO DAILY Lorazepam Intensol (Lorazepam) 2 Mg/1 Ml Oral.conc 0.5 Mg PO PRN Q4HRS PRN Senna S Tablet (Sennosides/Docusate Sodium) 1 Each Tablet 1 Tab PO BID Depakote Sprinkle (Divalproex Sodium) 125 Mg Cap.sprink 500 Mg PO QHS Depakote Sprinkle (Divalproex Sodium) 125 Mg Cap.sprink 125 Mg PO BID92 Tylenol (Acetaminophen) 325 Mg Tablet 650 Mg PO PRN Q6HRS PRN Olanzapine Odt (Olanzapine) 5 Mg Tab.rapdis 5 Mg PO QHS Analgesic [place] (Methyl Salicylate/Menthol) 28 Gm Oint...g. 1 Beck TP PRN QID PRN Maalox Maximum Strength Susp (Mag Hydrox/Al Hydrox/Simeth) 355 Ml Oral.susp 15 Ml PO PRN AFTMEALHC PRN Milk Of Magnesia (Magnesium Hydroxide) 2,400 Mg/10 Ml Oral.susp 2,400 Mg PO PRN QHS PRN Vitamin B-12 (Cyanocobalamin (Vitamin B-12)) 1,000 Mcg Tablet 250 Mcg PO DAILY Lorazepam 0.5 Mg Tablet 0.5 Mg PO PRN Q4HRS PRN Dilantin (Phenytoin Sodium Extended) 100 Mg Capsule 100 Mg PO BID Aspirin 81 Mg Tab.chew 81 Mg PO DAILY I have reviewed the current psychotropics carefully including drug interactions. Risk benefit ratio favors no change other than as noted in my dictated progress note. Diagnosis: Problems: (1) Breakthrough seizure (2) Dementia with behavioral disturbance (3) Anxiety disorder (4) Dementia in Alzheimer's disease with delusions (5) Dementia in Alzheimer's disease with depression (6) Dementia, vascular, with delusions (7) Dementia, vascular, with depression (8) Impulse control disorder NAKIA KO MD Jun 02, 2017 21:01
--- NOTE | 2017-06-02 22:54 | PN ---
DATE: 05/31/2017 This is a late entry for 05/31/2017 covers elements not covered in my initial note of 05/31/2017. SUBJECTIVE: I met with the patient in the evening of 05/31/2017. The patient slept 7 hours previous evening remains confused, wanders the hallways, anxious, but less so than before, getting worse around noon 2 o'clock. REVIEW OF SYSTEMS: No CV, , pulmonary, eye, ENT system symptoms on review. Reliability poor. MENTAL STATUS EXAM: Oriented to herself. Insight, judgment, recent and remote memory, attention, concentration, fund of knowledge poor, consistent with her diagnosis mentioned in my initial note. IMPRESSION: Major neurocognitive disorder, Alzheimer, vascular with depression, delusion, behavioral disturbance. Rest unchanged. PLAN: Start scheduled Ativan 0.5 mg at noon. Continue rest unchanged from initial note. MAN Leandro KO MD DR: [email or web address]/luz JOB#: [id number] / [id number]
--- NOTE | 2017-06-03 01:48 | PN ---
DATE: 06/01/2017 This is a late entry for 06/01/2017 and covers the elements not covered in my initial note of 06/01/2017. SUBJECTIVE: I met with the patient in the evening of 06/01/2017. The patient remains confused, wanders the hallways, anxious, more so at night. REVIEW OF SYSTEMS: No eye, ENT, CV, , pulmonary system symptoms on review. Reliability poor. MENTAL STATUS EXAM: Oriented to herself. Insight, judgment, recent and remote memory, attention, concentration, fund of knowledge poor, consistent with her diagnosis mentioned in my initial note. IMPRESSION: Major neurocognitive disorder, Alzheimer, vascular with delusion, depression, behavioral disturbance. PLAN: Continue psychotropics mentioned in my initial note, BuSpar is 15 mg in the morning and 10 mg b.i.d. at 1300 and 1700 and we will increase the 1300 BuSpar to 15 mg. Rest unchanged including Ativan 0.5 mg at 1200 hours. MAN Leandro KO MD DR: [email or web address]/luz JOB#: [id number] / [id number]
[2017-06-03 06:11] VITALS: BP 133/63
[2017-06-03] MEDS: DIVALPROEX 125 MG CAP.SPRINK PO SCH ×3 (07:32→20:43)
[2017-06-03] MEDS: busPIRone 15 MG TABLET. PO SCH ×2 (07:33→12:01)
[2017-06-03] MEDS: PHENYTOIN SODIUM EXTENDED 100 MG CAPSULE PO SCH ×2 (07:33→20:42)
[2017-06-03] MEDS: SERTRALINE 100 MG TABLET. PO SCH (07:33)
[2017-06-03] MEDS: ASPIRIN 81 MG TAB.CHEW PO SCH (07:33)
[2017-06-03] MEDS: SENNOSIDES/DOCUSATE 8.6/50MG TABLET. PO SCH ×2 (07:33→20:42)
[2017-06-03] MEDS: LACTOBACILLUS RHAMNOSUS GG 1 CAPSULE. PO SCH ×2 (07:33→20:42)
[2017-06-03] MEDS: POTASSIUM CHLORIDE 20 MEQ TABLET.ER. PO SCH (07:33)
[2017-06-03] MEDS: CYANOCOBALAMIN (VITAMIN B-12) 250 MCG TABLET PO SCH (07:33)
[2017-06-03] MEDS: LORazepam 0.5 MG TABLET PO SCH (12:01)
[2017-06-03 16:14] VITALS: BP 124/55
[2017-06-03] MEDS: busPIRone 10 MG TABLET. PO SCH (17:49)
[2017-06-03] MEDS: MIRTAZAPINE 15 MG TABLET PO SCH (20:42)
--- NOTE | 2017-06-03 20:55 | PDOC ---
Exam Note: Dane Note: Please also refer to the separate dictated note~for this date of service dictated separately.~Patient seen individually. Discussed the patient with Nursing staff reviewed the chart.~Reviewed interim history and current functioning. Reviewed vital signs,~Labs/ Radiology~and current medications noted below. Continue current treatment with the changes noted in the dictated addendum note Assessment: Vital Signs: Vital Signs Date Time Temp Pulse Resp B/P (MAP) Pulse Ox O2 Delivery O2 Flow Rate FiO2 06/03/17 16:14 97.6 66 20 124/55 (78) 98 I&O Intake and Output 06/03/17 07:00 Intake Total 1200 ml Balance 1200 ml Intake Oral 1200 ml # Bowel Movements 1 Current Medications: Meds: Current Medications Diphtheria/ Tetanus/Acell Pertussis (Boostrix) 0.5 ml ONCE ONCE VAX IM Last administered on 05/01/17at 22:36; Start 05/01/17 at 19:15; Stop 05/01/17 at 19:16 ; Status DC Lorazepam (Ativan) 2 mg 1X ONCE IM Last administered on 05/01/17at 19:45; Start 05/01/17 at 19:45; Stop 05/01/17 at 19:46; Status DC Diphenhydramine HCl (Benadryl) 50 mg 1X ONCE IM Last administered on at 19:45; Start 05/01/17 at 19:45; Stop 05/01/17 at 19:46; Status DC Diphenhydramine HCl (Benadryl) 50 mg STK-MED ONCE .ROUTE ; Start 05/01/17 at 19: 36; Stop 05/01/17 at 19:37; Status DC Lorazepam (Ativan) 1 mg STK-MED ONCE .ROUTE ; Start 05/01/17 at 19:38; Stop at 19:39; Status DC Midazolam HCl (Versed) 2 mg 1X ONCE IV ; Start 05/01/17 at 20:30; Stop at 20:31; Status DC Midazolam HCl (Versed) 5 mg STK-MED ONCE .ROUTE ; Start 05/01/17 at 20:25; Stop 05/01/17 at 20:26; Status DC Midazolam HCl (Versed) 5 mg 1X ONCE NS Last administered on 05/01/17at 20:40; Start 05/01/17 at 21:00; Stop 05/01/17 at 21:01; Status DC Ceftriaxone Sodium (Rocephin Im) 1 gm 1X ONCE IM Last administered on at 22:36; Start 05/01/17 at 21:15; Stop 05/01/17 at 21:16; Status DC Enoxaparin Sodium (Lovenox 60mg Syringe) 50 mg 1X ONCE SQ ; Start 05/01/17 at 21:45; Stop 05/01/17 at 21:45; Status DC Enoxaparin Sodium (Lovenox) 55 mg BID SQ ; Start 05/02/17 at 09:00; Stop at 09:00; Status DC Enoxaparin Sodium (Lovenox 60mg Syringe) 55 mg 1X ONCE SQ Last administered on 05/01/17at 22:35; Start 05/01/17 at 21:45; Stop 05/01/17 at 21:46; Status DC Iohexol (Omnipaque 300 Mg/ml) 75 ml 1X ONCE IV Last administered on 05/01/17at 22:11; Start 05/01/17 at 22:00; Stop 05/01/17 at 22:01; Status DC Midazolam HCl (Versed) 5 mg 1X ONCE IV ; Start 05/01/17 at 22:15; Stop at 22:18; Status DC Midazolam HCl (Versed) 1 mg 1X ONCE IV Last administered on 05/01/17at 22:30; Start 05/01/17 at 23:00; Stop 05/01/17 at 23:02; Status DC Cephalexin HCl (Keflex) 500 mg TID PO Last administered on 05/03/17at 20:27; Start 05/02/17 at 09:00; Stop 05/03/17 at 22:41; Status DC Alprazolam (Xanax) 0.25 mg QID PO Last administered on 05/02/17at 17:32; Start 05/02/17 at 09:00; Stop 05/02/17 at 19:27; Status DC Divalproex Sodium (Depakote Sprinkles) 125 mg BID92 PO Last administered on 05/11at 14:05; Start 05/02/17 at 09:00; Stop 05/11/17 at 18:42; Status DC Divalproex Sodium (Depakote Sprinkles) 500 mg QHS PO Last administered on at 19:41; Start 05/02/17 at 21:00; Stop 05/07/17 at 18:37; Status DC Lorazepam (Ativan) 0.5 mg PRN Q4HRS PRN PO ANXIETY / AGITATION Last administered on 06/02/17at 17:09; Start 05/02/17 at 01:00 Lorazepam (Ativan Intensol) 0.5 mg PRN Q4HRS PRN PO ANXIETY / AGITATION Last administered on 05/29/17at 11:25; Start 05/02/17 at 01:00 Olanzapine (ZyPREXA ZYDIS) 5 mg QHS PO Last administered on 05/07/17at 20:07; Start 05/02/17 at 21:00; Stop 05/08/17 at 19:10; Status DC Sertraline HCl (Zoloft) 100 mg DAILY PO Last administered on 06/03/17at 07:33; Start 05/02/17 at 09:00 Levofloxacin (Levaquin) 500 mg DAILY06 PO Last administered on 05/02/17at 08:53 ; Start 05/02/17 at 07:30; Stop 05/02/17 at 10:36; Status DC Lactobacillus Rhamnosus (Culturelle) 1 cap BID PO Last administered on at 20:42; Start 05/02/17 at 09:00 Levofloxacin (Levaquin) 250 mg DAILY06 PO Last administered on 05/06/17at 07:45 ; Start 05/03/17 at 06:00; Stop 05/06/17 at 18:15; Status DC Alprazolam (Xanax) 0.25 mg TID PO Last administered on 05/06/17at 14:25; Start 05/02/17 at 21:00; Stop 05/06/17 at 20:59; Status DC Alprazolam (Xanax) 0.25 mg BID PO Last administered on 05/09/17at 19:50; Start at 21:00; Stop 05/10/17 at 08:59; Status DC Alprazolam (Xanax) 0.25 mg DAILY PO Last administered on 05/13/17 08:21; Start 05/10/17 at 09:00; Stop 05/14/17 at 08:59; Status DC Mirtazapine (Remeron) 7.5 mg QHS PO Last administered on 05/02/17 19:59; Start 05/02/17 at 21:00; Stop 05/03/17 at 19:31; Status DC Acetaminophen (Tylenol) 650 mg PRN Q6HRS PRN PO PAIN; Start 05/02/17 at 19:30 Aspirin (Children'S Aspirin) 81 mg DAILY PO Last administered on 06/03/17 07: 33; Start 05/03/17 at 09:00 Cyanocobalamin (Vitamin B-12) 250 mcg DAILY PO Last administered on 06/03/17 07:33; Start 05/03/17 at 09:00 Al Hydroxide/Mg Hydroxide (Mylanta Plus Xs) 15 ml PRN AFTMEALHC PRN PO DYSPEPSIA; Start 05/02/17 at 19:30 Multi-Ingredient Ointment (Analgesic [place]) 1 beck PRN QID PRN TP MUSCLE PAIN; Start 05/02/17 at 19:30 Phenytoin Sodium (Dilantin) 100 mg BID PO Last administered on 06/03/17 20:42 ; Start 05/02/17 at 21:00 Senna/Docusate Sodium (Senna Plus) 1 tab BID PO Last administered on 06/03/17 20:42; Start 05/02/17 at 21:00 Magnesium Hydroxide (Milk Of Magnesia) 2,400 mg PRN QHS PRN PO CONSTIPATION Last administered on 05/20/17at 11:56; Start 05/02/17 at 19:45 Potassium Chloride (Klor-Con) 20 meq DAILYWBKFT PO Last administered on 07:33; Start 05/03/17 at 08:00 Neomycin/ Polymyxin/ Bacitracin (Triple Antibiotic Ointment) 1 pkt BID TP Last administered on 05/08/17 08:51; Start 05/03/17 at 21:00; Stop 05/08/17 at 20:59; Status DC Mirtazapine (Remeron) 15 mg QHS PO Last administered on 06/03/17at 20:42; Start 05/03/17 at 21:00 Trazodone HCl (Desyrel) 50 mg PRN QHS PRN PO SLEEP Last administered on at 01:56; Start 05/03/17 at 19:30; Stop 05/16/17 at 18:59; Status DC Alprazolam (Xanax) 0.25 mg 1X ONCE PO Last administered on 05/05/17at 09:36; Start 05/05/17 at 10:00; Stop 05/05/17 at 10:01; Status DC Buspirone HCl (Buspar) 5 mg TID@0900,1300,1700 PO Last administered on at 16:43; Start 05/06/17 at 09:00; Stop 05/06/17 at 18:23; Status DC Buspirone HCl (Buspar) 5 mg BID@1300,1700 PO Last administered on 05/09/17at 14: 08; Start 05/07/17 at 13:00; Stop 05/09/17 at 18:34; Status DC Buspirone HCl (Buspar) 10 mg DAILY PO Last administered on 05/08/17at 08:49; Start 05/07/17 at 09:00; Stop 05/08/17 at 19:10; Status DC Divalproex Sodium (Depakote Sprinkles) 750 mg QHS PO Last administered on at 20:43; Start 05/07/17 at 21:00 Olanzapine (ZyPREXA ZYDIS) 2.5 mg QHS PO Last administered on 05/09/17at 19:48; Start 05/08/17 at 21:00; Stop 05/09/17 at 21:00; Status DC Divalproex Sodium (Depakote Sprinkles) 250 mg BID92 PO Last administered on at 12:04; Start 05/12/17 at 09:00 Buspirone HCl (Buspar) 5 mg BID@0900,1300 PO Last administered on 05/18/17at 13: 00; Start 05/15/17 at 13:00; Stop 05/18/17 at 15:50; Status DC Trazodone HCl (Desyrel) 50 mg PRN QHS PRN PO INSOMNIA, MAY REPEAT X1 Last administered on 05/30/17at 19:43; Start 05/16/17 at 19:00 Buspirone HCl (Buspar) 5 mg TID PO Last administered on 05/19/17at 13:50; Start 05/18/17 at 21:00; Stop 05/19/17 at 18:46; Status DC Buspirone HCl (Buspar) 5 mg [id number] PO Last administered on 05/21/17at 12:43; Start 05/19/17 at 21:00; Stop 05/21/17 at 14:16; Status DC Buspirone HCl (Buspar) 5 mg BID@0900,1700 PO Last administered on 05/24/17at 07: 52; Start 05/21/17 at 17:00; Stop 05/24/17 at 16:26; Status DC Buspirone HCl (Buspar) 10 mg DAILY@1300 PO Last administered on 05/24/17at 13:00 ; Start 05/22/17 at 13:00; Stop 05/24/17 at 16:26; Status DC Buspirone HCl (Buspar) 10 mg DAILY@0900,1300,1700 PO Last administered on at 17:20; Start 05/24/17 at 17:00; Stop 05/27/17 at 17:51; Status DC Buspirone HCl (Buspar) 10 mg BID@1300,1700 PO Last administered on 06/01/17at 17 :27; Start 05/28/17 at 13:00; Stop 06/02/17 at 13:00; Status DC Buspirone HCl (Buspar) 15 mg DAILY PO Last administered on 06/01/17at 08:44; Start 05/28/17 at 09:00; Stop 06/01/17 at 21:57; Status DC Lorazepam (Ativan) 0.5 mg DAILYWLUN PO Last administered on 06/03/17at 12:01; Start 06/01/17 at 12:00 Buspirone HCl (Buspar) 15 mg BID@0900,1300 PO Last administered on 06/03/17at 12 :01; Start 06/02/17 at 09:00 Buspirone HCl (Buspar) 10 mg DAILY@1700 PO Last administered on 3/27/18at 17:49 ; Start 06/02/17 at 17:00 Active Scripts Active Reported Klor-Con (Potassium Chloride) 20 Meq Packet 20 Meq PO DAILY Xanax (Alprazolam) 0.25 Mg Tablet 0.25 Mg PO QID Zoloft (Sertraline Hcl) 100 Mg Tablet 100 Mg PO DAILY Lorazepam Intensol (Lorazepam) 2 Mg/1 Ml Oral.conc 0.5 Mg PO PRN Q4HRS PRN Senna S Tablet (Sennosides/Docusate Sodium) 1 Each Tablet 1 Tab PO BID Depakote Sprinkle (Divalproex Sodium) 125 Mg Cap.sprink 500 Mg PO QHS Depakote Sprinkle (Divalproex Sodium) 125 Mg Cap.sprink 125 Mg PO BID92 Tylenol (Acetaminophen) 325 Mg Tablet 650 Mg PO PRN Q6HRS PRN Olanzapine Odt (Olanzapine) 5 Mg Tab.rapdis 5 Mg PO QHS Analgesic [place] (Methyl Salicylate/Menthol) 28 Gm Oint...g. 1 Beck TP PRN QID PRN Maalox Maximum Strength Susp (Mag Hydrox/Al Hydrox/Simeth) 355 Ml Oral.susp 15 Ml PO PRN AFTMEALHC PRN Milk Of Magnesia (Magnesium Hydroxide) 2,400 Mg/10 Ml Oral.susp 2,400 Mg PO PRN QHS PRN Vitamin B-12 (Cyanocobalamin (Vitamin B-12)) 1,000 Mcg Tablet 250 Mcg PO DAILY Lorazepam 0.5 Mg Tablet 0.5 Mg PO PRN Q4HRS PRN Dilantin (Phenytoin Sodium Extended) 100 Mg Capsule 100 Mg PO BID Aspirin 81 Mg Tab.chew 81 Mg PO DAILY I have reviewed the current psychotropics carefully including drug interactions. Risk benefit ratio favors no change other than as noted in my dictated progress note. Diagnosis: Problems: (1) Breakthrough seizure (2) Dementia with behavioral disturbance (3) Anxiety disorder (4) Dementia in Alzheimer's disease with delusions (5) Dementia in Alzheimer's disease with depression (6) Dementia, vascular, with delusions (7) Dementia, vascular, with depression (8) Impulse control disorder NAKIA KO MD Jun 03, 2017 20:55
--- NOTE | 2017-06-03 21:59 | PN ---
DATE: 06/02/2017 PSYCHIATRIC PROGRESS NOTE This is a late entry 06/02/2017 covers elements not covered in my initial note 06/02/2017. SUBJECTIVE: I met with the patient evening of 06/02/2017. Per nursing report, the patient remains confused, wanders the hallways. Nursing staff have to feed her meals, otherwise she is unable to follow through on this herself, received Ativan twice p.r.n. during the day. REVIEW OF SYSTEMS: No CV, , pulmonary, eye, ENT system symptoms on review. Reliability poor. MENTAL STATUS EXAM: Oriented to herself. Insight, judgment, recent and remote memory, attention, concentration, fund of knowledge poor, consistent with her diagnosis mentioned in my initial note. IMPRESSION: Major neurocognitive disorder, Alzheimer, vascular with depression, delusion, behavioral disturbance. Rest unchanged. PLAN: Continue current psychotropics. BuSpar was increased. We may have to increase it further depending on her anxiety and restlessness, but she seems to be responding to it. Rest unchanged from initial note. MAN Leandro KO MD DR: LUCRECIA/luz JOB#: [id number] / [id number]
[2017-06-04 06:07] VITALS: BP 119/60
[2017-06-04] MEDS: LACTOBACILLUS RHAMNOSUS GG 1 CAPSULE. PO SCH ×2 (07:48→19:32)
[2017-06-04] MEDS: DIVALPROEX 125 MG CAP.SPRINK PO SCH ×3 (07:48→19:32)
[2017-06-04] MEDS: CYANOCOBALAMIN (VITAMIN B-12) 250 MCG TABLET PO SCH (07:48)
[2017-06-04] MEDS: PHENYTOIN SODIUM EXTENDED 100 MG CAPSULE PO SCH ×2 (07:48→19:33)
[2017-06-04] MEDS: POTASSIUM CHLORIDE 20 MEQ TABLET.ER. PO SCH (07:48)
[2017-06-04] MEDS: ASPIRIN 81 MG TAB.CHEW PO SCH (07:48)
[2017-06-04] MEDS: SENNOSIDES/DOCUSATE 8.6/50MG TABLET. PO SCH ×2 (07:48→19:33)
[2017-06-04] MEDS: SERTRALINE 100 MG TABLET. PO SCH (07:48)
[2017-06-04] MEDS: busPIRone 15 MG TABLET. PO SCH ×2 (07:48→11:44)
[2017-06-04] MEDS: LORazepam 0.5 MG TABLET PO SCH (11:44)
[2017-06-04 16:33] VITALS: BP 101/47
[2017-06-04] MEDS: busPIRone 10 MG TABLET. PO SCH (16:56)
[2017-06-04] MEDS: MIRTAZAPINE 15 MG TABLET PO SCH (19:32)
--- NOTE | 2017-06-04 21:05 | PDOC ---
Exam Note: Dane Note: Please also refer to the separate dictated note~for this date of service dictated separately.~Patient seen individually. Discussed the patient with Nursing staff reviewed the chart.~Reviewed interim history and current functioning. Reviewed vital signs,~Labs/ Radiology~and current medications noted below. Continue current treatment with the changes noted in the dictated addendum note Assessment: Vital Signs: Vital Signs Date Time Temp Pulse Resp B/P (MAP) Pulse Ox O2 Delivery O2 Flow Rate FiO2 06/04/17 16:33 97.5 85 22 101/47 (65) 97 I&O Intake and Output 06/04/17 07:00 Intake Total 1200 ml Balance 1200 ml Intake Oral 1200 ml Current Medications: Meds: Current Medications Diphtheria/ Tetanus/Acell Pertussis (Boostrix) 0.5 ml ONCE ONCE VAX IM Last administered on 05/01/17at 22:36; Start 05/01/17 at 19:15; Stop 05/01/17 at 19:16 ; Status DC Lorazepam (Ativan) 2 mg 1X ONCE IM Last administered on 05/01/17at 19:45; Start 05/01/17 at 19:45; Stop 05/01/17 at 19:46; Status DC Diphenhydramine HCl (Benadryl) 50 mg 1X ONCE IM Last administered on at 19:45; Start 05/01/17 at 19:45; Stop 05/01/17 at 19:46; Status DC Diphenhydramine HCl (Benadryl) 50 mg STK-MED ONCE .ROUTE ; Start 05/01/17 at 19: 36; Stop 05/01/17 at 19:37; Status DC Lorazepam (Ativan) 1 mg STK-MED ONCE .ROUTE ; Start 05/01/17 at 19:38; Stop at 19:39; Status DC Midazolam HCl (Versed) 2 mg 1X ONCE IV ; Start 05/01/17 at 20:30; Stop at 20:31; Status DC Midazolam HCl (Versed) 5 mg STK-MED ONCE .ROUTE ; Start 05/01/17 at 20:25; Stop 05/01/17 at 20:26; Status DC Midazolam HCl (Versed) 5 mg 1X ONCE NS Last administered on 05/01/17at 20:40; Start 05/01/17 at 21:00; Stop 05/01/17 at 21:01; Status DC Ceftriaxone Sodium (Rocephin Im) 1 gm 1X ONCE IM Last administered on at 22:36; Start 05/01/17 at 21:15; Stop 05/01/17 at 21:16; Status DC Enoxaparin Sodium (Lovenox 60mg Syringe) 50 mg 1X ONCE SQ ; Start 05/01/17 at 21:45; Stop 05/01/17 at 21:45; Status DC Enoxaparin Sodium (Lovenox) 55 mg BID SQ ; Start 05/02/17 at 09:00; Stop at 09:00; Status DC Enoxaparin Sodium (Lovenox 60mg Syringe) 55 mg 1X ONCE SQ Last administered on 05/01/17at 22:35; Start 05/01/17 at 21:45; Stop 05/01/17 at 21:46; Status DC Iohexol (Omnipaque 300 Mg/ml) 75 ml 1X ONCE IV Last administered on 05/01/17at 22:11; Start 05/01/17 at 22:00; Stop 05/01/17 at 22:01; Status DC Midazolam HCl (Versed) 5 mg 1X ONCE IV ; Start 05/01/17 at 22:15; Stop at 22:18; Status DC Midazolam HCl (Versed) 1 mg 1X ONCE IV Last administered on 05/01/17at 22:30; Start 05/01/17 at 23:00; Stop 05/01/17 at 23:02; Status DC Cephalexin HCl (Keflex) 500 mg TID PO Last administered on 05/03/17at 20:27; Start 05/02/17 at 09:00; Stop 05/03/17 at 22:41; Status DC Alprazolam (Xanax) 0.25 mg QID PO Last administered on 05/02/17at 17:32; Start 05/02/17 at 09:00; Stop 05/02/17 at 19:27; Status DC Divalproex Sodium (Depakote Sprinkles) 125 mg BID92 PO Last administered on 05/11at 14:05; Start 05/02/17 at 09:00; Stop 05/11/17 at 18:42; Status DC Divalproex Sodium (Depakote Sprinkles) 500 mg QHS PO Last administered on 19:41; Start 05/02/17 at 21:00; Stop 05/07/17 at 18:37; Status DC Lorazepam (Ativan) 0.5 mg PRN Q4HRS PRN PO ANXIETY / AGITATION Last administered on 06/02/17 17:09; Start 05/02/17 at 01:00 Lorazepam (Ativan Intensol) 0.5 mg PRN Q4HRS PRN PO ANXIETY / AGITATION Last administered on 05/29/17 11:25; Start 05/02/17 at 01:00 Olanzapine (ZyPREXA ZYDIS) 5 mg QHS PO Last administered on 05/07/17 20:07; Start 05/02/17 at 21:00; Stop 05/08/17 at 19:10; Status DC Sertraline HCl (Zoloft) 100 mg DAILY PO Last administered on 06/04/17 07:48; Start 05/02/17 at 09:00 Levofloxacin (Levaquin) 500 mg DAILY06 PO Last administered on 05/02/17at 08:53 ; Start 05/02/17 at 07:30; Stop 05/02/17 at 10:36; Status DC Lactobacillus Rhamnosus (Culturelle) 1 cap BID PO Last administered on at 19:32; Start 05/02/17 at 09:00 Levofloxacin (Levaquin) 250 mg DAILY06 PO Last administered on 05/06/17at 07:45 ; Start 05/03/17 at 06:00; Stop 05/06/17 at 18:15; Status DC Alprazolam (Xanax) 0.25 mg TID PO Last administered on 05/06/17 14:25; Start 05/02/17 at 21:00; Stop 05/06/17 at 20:59; Status DC Alprazolam (Xanax) 0.25 mg BID PO Last administered on 05/09/17 19:50; Start at 21:00; Stop 05/10/17 at 08:59; Status DC Alprazolam (Xanax) 0.25 mg DAILY PO Last administered on 05/13/17 08:21; Start 05/10/17 at 09:00; Stop 05/14/17 at 08:59; Status DC Mirtazapine (Remeron) 7.5 mg QHS PO Last administered on 05/02/17 19:59; Start 05/02/17 at 21:00; Stop 05/03/17 at 19:31; Status DC Acetaminophen (Tylenol) 650 mg PRN Q6HRS PRN PO PAIN; Start 05/02/17 at 19:30 Aspirin (Children'S Aspirin) 81 mg DAILY PO Last administered on 06/04/17 07: 48; Start 05/03/17 at 09:00 Cyanocobalamin (Vitamin B-12) 250 mcg DAILY PO Last administered on 06/04/17 07:48; Start 05/03/17 at 09:00 Al Hydroxide/Mg Hydroxide (Mylanta Plus Xs) 15 ml PRN AFTMEALHC PRN PO DYSPEPSIA; Start 05/02/17 at 19:30 Multi-Ingredient Ointment (Analgesic [place]) 1 beck PRN QID PRN TP MUSCLE PAIN; Start 05/02/17 at 19:30 Phenytoin Sodium (Dilantin) 100 mg BID PO Last administered on 06/04/17 19:33 ; Start 05/02/17 at 21:00 Senna/Docusate Sodium (Senna Plus) 1 tab BID PO Last administered on 06/04/17 19:33; Start 05/02/17 at 21:00 Magnesium Hydroxide (Milk Of Magnesia) 2,400 mg PRN QHS PRN PO CONSTIPATION Last administered on 05/20/17at 11:56; Start 05/02/17 at 19:45 Potassium Chloride (Klor-Con) 20 meq DAILYWBKFT PO Last administered on 07:48; Start 05/03/17 at 08:00 Neomycin/ Polymyxin/ Bacitracin (Triple Antibiotic Ointment) 1 pkt BID TP Last administered on 05/08/17 08:51; Start 05/03/17 at 21:00; Stop 05/08/17 at 20:59; Status DC Mirtazapine (Remeron) 15 mg QHS PO Last administered on 06/04/17 19:32; Start 05/03/17 at 21:00 Trazodone HCl (Desyrel) 50 mg PRN QHS PRN PO SLEEP Last administered on at 01:56; Start 05/03/17 at 19:30; Stop 05/16/17 at 18:59; Status DC Alprazolam (Xanax) 0.25 mg 1X ONCE PO Last administered on 05/05/17at 09:36; Start 05/05/17 at 10:00; Stop 05/05/17 at 10:01; Status DC Buspirone HCl (Buspar) 5 mg TID@0900,1300,1700 PO Last administered on at 16:43; Start 05/06/17 at 09:00; Stop 05/06/17 at 18:23; Status DC Buspirone HCl (Buspar) 5 mg BID@1300,1700 PO Last administered on 05/09/17at 14: 08; Start 05/07/17 at 13:00; Stop 05/09/17 at 18:34; Status DC Buspirone HCl (Buspar) 10 mg DAILY PO Last administered on 05/08/17at 08:49; Start 05/07/17 at 09:00; Stop 05/08/17 at 19:10; Status DC Divalproex Sodium (Depakote Sprinkles) 750 mg QHS PO Last administered on at 19:32; Start 05/07/17 at 21:00 Olanzapine (ZyPREXA ZYDIS) 2.5 mg QHS PO Last administered on 05/09/17at 19:48; Start 05/08/17 at 21:00; Stop 05/09/17 at 21:00; Status DC Divalproex Sodium (Depakote Sprinkles) 250 mg BID92 PO Last administered on at 13:22; Start 05/12/17 at 09:00 Buspirone HCl (Buspar) 5 mg BID@0900,1300 PO Last administered on 05/18/17at 13: 00; Start 05/15/17 at 13:00; Stop 05/18/17 at 15:50; Status DC Trazodone HCl (Desyrel) 50 mg PRN QHS PRN PO INSOMNIA, MAY REPEAT X1 Last administered on 05/30/17at 19:43; Start 05/16/17 at 19:00 Buspirone HCl (Buspar) 5 mg TID PO Last administered on 05/19/17at 13:50; Start 05/18/17 at 21:00; Stop 05/19/17 at 18:46; Status DC Buspirone HCl (Buspar) 5 mg [id number] PO Last administered on 05/21/17at 12:43; Start 05/19/17 at 21:00; Stop 05/21/17 at 14:16; Status DC Buspirone HCl (Buspar) 5 mg BID@0900,1700 PO Last administered on 05/24/17at 07: 52; Start 05/21/17 at 17:00; Stop 05/24/17 at 16:26; Status DC Buspirone HCl (Buspar) 10 mg DAILY@1300 PO Last administered on 05/24/17at 13:00 ; Start 05/22/17 at 13:00; Stop 05/24/17 at 16:26; Status DC Buspirone HCl (Buspar) 10 mg DAILY@0900,1300,1700 PO Last administered on at 17:20; Start 05/24/17 at 17:00; Stop 05/27/17 at 17:51; Status DC Buspirone HCl (Buspar) 10 mg BID@1300,1700 PO Last administered on 06/01/17at 17 :27; Start 05/28/17 at 13:00; Stop 06/02/17 at 13:00; Status DC Buspirone HCl (Buspar) 15 mg DAILY PO Last administered on 06/01/17at 08:44; Start 05/28/17 at 09:00; Stop 06/01/17 at 21:57; Status DC Lorazepam (Ativan) 0.5 mg DAILYWLUN PO Last administered on 06/04/17at 11:44; Start 06/01/17 at 12:00 Buspirone HCl (Buspar) 15 mg BID@0900,1300 PO Last administered on 06/04/17at 11 :44; Start 06/02/17 at 09:00 Buspirone HCl (Buspar) 10 mg DAILY@1700 PO Last administered on 06/04/17at 16:56 ; Start 06/02/17 at 17:00 Active Scripts Active Reported Klor-Con (Potassium Chloride) 20 Meq Packet 20 Meq PO DAILY Xanax (Alprazolam) 0.25 Mg Tablet 0.25 Mg PO QID Zoloft (Sertraline Hcl) 100 Mg Tablet 100 Mg PO DAILY Lorazepam Intensol (Lorazepam) 2 Mg/1 Ml Oral.conc 0.5 Mg PO PRN Q4HRS PRN Senna S Tablet (Sennosides/Docusate Sodium) 1 Each Tablet 1 Tab PO BID Depakote Sprinkle (Divalproex Sodium) 125 Mg Cap.sprink 500 Mg PO QHS Depakote Sprinkle (Divalproex Sodium) 125 Mg Cap.sprink 125 Mg PO BID92 Tylenol (Acetaminophen) 325 Mg Tablet 650 Mg PO PRN Q6HRS PRN Olanzapine Odt (Olanzapine) 5 Mg Tab.rapdis 5 Mg PO QHS Analgesic [place] (Methyl Salicylate/Menthol) 28 Gm Oint...g. 1 Beck TP PRN QID PRN Maalox Maximum Strength Susp (Mag Hydrox/Al Hydrox/Simeth) 355 Ml Oral.susp 15 Ml PO PRN AFTMEALHC PRN Milk Of Magnesia (Magnesium Hydroxide) 2,400 Mg/10 Ml Oral.susp 2,400 Mg PO PRN QHS PRN Vitamin B-12 (Cyanocobalamin (Vitamin B-12)) 1,000 Mcg Tablet 250 Mcg PO DAILY Lorazepam 0.5 Mg Tablet 0.5 Mg PO PRN Q4HRS PRN Dilantin (Phenytoin Sodium Extended) 100 Mg Capsule 100 Mg PO BID Aspirin 81 Mg Tab.chew 81 Mg PO DAILY I have reviewed the current psychotropics carefully including drug interactions. Risk benefit ratio favors no change other than as noted in my dictated progress note. 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
--- NOTE | 2017-06-04 21:51 | PN ---
DATE: 06/03/2017 This is a late entry for 06/03/2017 and covers elements not covered in my initial note of 06/03/2017. I met with the patient in the evening of 06/03/2017. The patient remains confused, wandering the hallways, little less anxious with BuSpar, compliant with medications, though she takes it crushed in pudding. REVIEW OF SYSTEMS: No PRNs were given. No CV, , pulmonary, eye, ENT system symptoms on review. Reliability poor. MENTAL STATUS EXAM: Oriented to herself. Insight, judgment, recent and remote memory, attention, concentration, fund of knowledge poor, consistent with her diagnosis as mentioned in my initial note. IMPRESSION: Major neurocognitive disorder, Alzheimer, vascular with depression, delusion, behavioral disturbance. Rest unchanged. PLAN: Continue psychotropics as mentioned in my initial note. Adjust further as clinically indicated. MAN Leandro KO MD DR: LUCRECIA/luz JOB#: [id number] / [id number]
[2017-06-05 05:48] VITALS: BP 103/50
[2017-06-05] MEDS: SENNOSIDES/DOCUSATE 8.6/50MG TABLET. PO SCH ×2 (08:11→19:52)
[2017-06-05] MEDS: PHENYTOIN SODIUM EXTENDED 100 MG CAPSULE PO SCH ×2 (08:11→19:52)
[2017-06-05] MEDS: ASPIRIN 81 MG TAB.CHEW PO SCH (08:11)
[2017-06-05] MEDS: CYANOCOBALAMIN (VITAMIN B-12) 250 MCG TABLET PO SCH (08:11)
[2017-06-05] MEDS: DIVALPROEX 125 MG CAP.SPRINK PO SCH ×2 (08:11→19:52)
[2017-06-05] MEDS: SERTRALINE 100 MG TABLET. PO SCH (08:11)
[2017-06-05] MEDS: busPIRone 15 MG TABLET. PO SCH ×3 (08:11→17:33)
[2017-06-05] MEDS: POTASSIUM CHLORIDE 20 MEQ TABLET.ER. PO SCH (08:11)
[2017-06-05] MEDS: LACTOBACILLUS RHAMNOSUS GG 1 CAPSULE. PO SCH ×2 (08:11→19:52)
[2017-06-05 08:27] LABS: VAL ACID 32 mcg/mL (50-100)
[2017-06-05] MEDS: LORazepam 0.5 MG TABLET PO SCH ×2 (12:36→13:29)
[2017-06-05] MEDS ORDERED: DIVALPROEX 125 MG CAP.SPRINK PO SCH (14:00)
[2017-06-05 16:04] VITALS: BP 103/52
[2017-06-05] MEDS: MIRTAZAPINE 15 MG TABLET PO SCH (19:52)
--- NOTE | 2017-06-05 20:56 | PDOC ---
Exam Note: Dane Note: Please also refer to the separate dictated note~for this date of service dictated separately.~Patient seen individually. Discussed the patient with Nursing staff reviewed the chart.~Reviewed interim history and current functioning. Reviewed vital signs,~Labs/ Radiology~and current medications noted below. Continue current treatment with the changes noted in the dictated addendum note Assessment: Vital Signs: Vital Signs Date Time Temp Pulse Resp B/P (MAP) Pulse Ox O2 Delivery O2 Flow Rate FiO2 06/05/17 16:04 97.4 62 20 103/52 (69) 97 I&O Intake and Output 06/05/17 07:00 Intake Total 1200 ml Balance 1200 ml Intake Oral 1200 ml # Bowel Movements 1 Labs: Laboratory Tests Test 06/05/17 07:43 Valproic Acid Level 32 mcg/mL (50-100) L Valproic Acid Last Dose Date 06/04/17 Valproic Acid Last Dose Time 2100 Current Medications: Meds: Current Medications Diphtheria/ Tetanus/Acell Pertussis (Boostrix) 0.5 ml ONCE ONCE VAX IM Last administered on 05/01/17at 22:36; Start 05/01/17 at 19:15; Stop 05/01/17 at 19:16 ; Status DC Lorazepam (Ativan) 2 mg 1X ONCE IM Last administered on 05/01/17at 19:45; Start 05/01/17 at 19:45; Stop 05/01/17 at 19:46; Status DC Diphenhydramine HCl (Benadryl) 50 mg 1X ONCE IM Last administered on at 19:45; Start 05/01/17 at 19:45; Stop 05/01/17 at 19:46; Status DC Diphenhydramine HCl (Benadryl) 50 mg STK-MED ONCE .ROUTE ; Start 05/01/17 at 19: 36; Stop 05/01/17 at 19:37; Status DC Lorazepam (Ativan) 1 mg STK-MED ONCE .ROUTE ; Start 05/01/17 at 19:38; Stop at 19:39; Status DC Midazolam HCl (Versed) 2 mg 1X ONCE IV ; Start 05/01/17 at 20:30; Stop at 20:31; Status DC Midazolam HCl (Versed) 5 mg STK-MED ONCE .ROUTE ; Start 05/01/17 at 20:25; Stop 05/01/17 at 20:26; Status DC Midazolam HCl (Versed) 5 mg 1X ONCE NS Last administered on 05/01/17at 20:40; Start 05/01/17 at 21:00; Stop 05/01/17 at 21:01; Status DC Ceftriaxone Sodium (Rocephin Im) 1 gm 1X ONCE IM Last administered on at 22:36; Start 05/01/17 at 21:15; Stop 05/01/17 at 21:16; Status DC Enoxaparin Sodium (Lovenox 60mg Syringe) 50 mg 1X ONCE SQ ; Start 05/01/17 at 21:45; Stop 05/01/17 at 21:45; Status DC Enoxaparin Sodium (Lovenox) 55 mg BID SQ ; Start 05/02/17 at 09:00; Stop at 09:00; Status DC Enoxaparin Sodium (Lovenox 60mg Syringe) 55 mg 1X ONCE SQ Last administered on 05/01/17at 22:35; Start 05/01/17 at 21:45; Stop 05/01/17 at 21:46; Status DC Iohexol (Omnipaque 300 Mg/ml) 75 ml 1X ONCE IV Last administered on 05/01/17at 22:11; Start 05/01/17 at 22:00; Stop 05/01/17 at 22:01; Status DC Midazolam HCl (Versed) 5 mg 1X ONCE IV ; Start 05/01/17 at 22:15; Stop at 22:18; Status DC Midazolam HCl (Versed) 1 mg 1X ONCE IV Last administered on 05/01/17at 22:30; Start 05/01/17 at 23:00; Stop 05/01/17 at 23:02; Status DC Cephalexin HCl (Keflex) 500 mg TID PO Last administered on 05/03/17at 20:27; Start 05/02/17 at 09:00; Stop 05/03/17 at 22:41; Status DC Alprazolam (Xanax) 0.25 mg QID PO Last administered on 05/02/17at 17:32; Start 05/02/17 at 09:00; Stop 05/02/17 at 19:27; Status DC Divalproex Sodium (Depakote Sprinkles) 125 mg BID92 PO Last administered on 05/11 14:05; Start 05/02/17 at 09:00; Stop 05/11/17 at 18:42; Status DC Divalproex Sodium (Depakote Sprinkles) 500 mg QHS PO Last administered on 19:41; Start 05/02/17 at 21:00; Stop 05/07/17 at 18:37; Status DC Lorazepam (Ativan) 0.5 mg PRN Q4HRS PRN PO ANXIETY / AGITATION Last administered on 06/02/17 17:09; Start 05/02/17 at 01:00 Lorazepam (Ativan Intensol) 0.5 mg PRN Q4HRS PRN PO ANXIETY / AGITATION Last administered on 05/29/17 11:25; Start 05/02/17 at 01:00 Olanzapine (ZyPREXA ZYDIS) 5 mg QHS PO Last administered on 05/07/17 20:07; Start 05/02/17 at 21:00; Stop 05/08/17 at 19:10; Status DC Sertraline HCl (Zoloft) 100 mg DAILY PO Last administered on 06/05/17 08:11; Start 05/02/17 at 09:00 Levofloxacin (Levaquin) 500 mg DAILY06 PO Last administered on 05/02/17at 08:53 ; Start 05/02/17 at 07:30; Stop 05/02/17 at 10:36; Status DC Lactobacillus Rhamnosus (Culturelle) 1 cap BID PO Last administered on at 19:52; Start 05/02/17 at 09:00 Levofloxacin (Levaquin) 250 mg DAILY06 PO Last administered on 05/06/17at 07:45 ; Start 05/03/17 at 06:00; Stop 05/06/17 at 18:15; Status DC Alprazolam (Xanax) 0.25 mg TID PO Last administered on 05/06/17 14:25; Start 05/02/17 at 21:00; Stop 05/06/17 at 20:59; Status DC Alprazolam (Xanax) 0.25 mg BID PO Last administered on 05/09/17 19:50; Start at 21:00; Stop 05/10/17 at 08:59; Status DC Alprazolam (Xanax) 0.25 mg DAILY PO Last administered on 05/13/17 08:21; Start 05/10/17 at 09:00; Stop 05/14/17 at 08:59; Status DC Mirtazapine (Remeron) 7.5 mg QHS PO Last administered on 05/02/17 19:59; Start 05/02/17 at 21:00; Stop 05/03/17 at 19:31; Status DC Acetaminophen (Tylenol) 650 mg PRN Q6HRS PRN PO PAIN; Start 05/02/17 at 19:30 Aspirin (Children'S Aspirin) 81 mg DAILY PO Last administered on 06/05/17 08: 11; Start 05/03/17 at 09:00 Cyanocobalamin (Vitamin B-12) 250 mcg DAILY PO Last administered on 06/05/17 08:11; Start 05/03/17 at 09:00 Al Hydroxide/Mg Hydroxide (Mylanta Plus Xs) 15 ml PRN AFTMEALHC PRN PO DYSPEPSIA; Start 05/02/17 at 19:30 Multi-Ingredient Ointment (Analgesic [place]) 1 beck PRN QID PRN TP MUSCLE PAIN; Start 05/02/17 at 19:30 Phenytoin Sodium (Dilantin) 100 mg BID PO Last administered on 06/05/17 19:52 ; Start 05/02/17 at 21:00 Senna/Docusate Sodium (Senna Plus) 1 tab BID PO Last administered on 06/05/17 19:52; Start 05/02/17 at 21:00 Magnesium Hydroxide (Milk Of Magnesia) 2,400 mg PRN QHS PRN PO CONSTIPATION Last administered on 05/20/17 11:56; Start 05/02/17 at 19:45 Potassium Chloride (Klor-Con) 20 meq DAILYWBKFT PO Last administered on 08:11; Start 05/03/17 at 08:00 Neomycin/ Polymyxin/ Bacitracin (Triple Antibiotic Ointment) 1 pkt BID TP Last administered on 05/08/17at 08:51; Start 05/03/17 at 21:00; Stop 05/08/17 at 20:59; Status DC Mirtazapine (Remeron) 15 mg QHS PO Last administered on 06/05/17 19:52; Start 05/03/17 at 21:00 Trazodone HCl (Desyrel) 50 mg PRN QHS PRN PO SLEEP Last administered on at 01:56; Start 05/03/17 at 19:30; Stop 05/16/17 at 18:59; Status DC Alprazolam (Xanax) 0.25 mg 1X ONCE PO Last administered on 05/05/17at 09:36; Start 05/05/17 at 10:00; Stop 05/05/17 at 10:01; Status DC Buspirone HCl (Buspar) 5 mg TID@0900,1300,1700 PO Last administered on at 16:43; Start 05/06/17 at 09:00; Stop 05/06/17 at 18:23; Status DC Buspirone HCl (Buspar) 5 mg BID@1300,1700 PO Last administered on 05/09/17 14: 08; Start 05/07/17 at 13:00; Stop 05/09/17 at 18:34; Status DC Buspirone HCl (Buspar) 10 mg DAILY PO Last administered on 05/08/17at 08:49; Start 05/07/17 at 09:00; Stop 05/08/17 at 19:10; Status DC Divalproex Sodium (Depakote Sprinkles) 750 mg QHS PO Last administered on at 19:52; Start 05/07/17 at 21:00 Olanzapine (ZyPREXA ZYDIS) 2.5 mg QHS PO Last administered on 05/09/17 19:48; Start 05/08/17 at 21:00; Stop 05/09/17 at 21:00; Status DC Divalproex Sodium (Depakote Sprinkles) 250 mg [id number] PO Last administered on at 08:11; Start 05/12/17 at 09:00; Stop 06/05/17 at 11:11; Status DC Buspirone HCl (Buspar) 5 mg BID@0900,1300 PO Last administered on 05/18/17at 13: 00; Start 05/15/17 at 13:00; Stop 05/18/17 at 15:50; Status DC Trazodone HCl (Desyrel) 50 mg PRN QHS PRN PO INSOMNIA, MAY REPEAT X1 Last administered on 05/30/17at 19:43; Start 05/16/17 at 19:00 Buspirone HCl (Buspar) 5 mg TID PO Last administered on 05/19/17at 13:50; Start 05/18/17 at 21:00; Stop 05/19/17 at 18:46; Status DC Buspirone HCl (Buspar) 5 mg [id number] PO Last administered on 05/21/17at 12:43; Start 05/19/17 at 21:00; Stop 05/21/17 at 14:16; Status DC Buspirone HCl (Buspar) 5 mg BID@0900,1700 PO Last administered on 05/24/17at 07: 52; Start 05/21/17 at 17:00; Stop 05/24/17 at 16:26; Status DC Buspirone HCl (Buspar) 10 mg DAILY@1300 PO Last administered on 05/24/17at 13:00 ; Start 05/22/17 at 13:00; Stop 05/24/17 at 16:26; Status DC Buspirone HCl (Buspar) 10 mg DAILY@0900,1300,1700 PO Last administered on at 17:20; Start 05/24/17 at 17:00; Stop 05/27/17 at 17:51; Status DC Buspirone HCl (Buspar) 10 mg BID@1300,1700 PO Last administered on 06/01/17at 17 :27; Start 05/28/17 at 13:00; Stop 06/02/17 at 13:00; Status DC Buspirone HCl (Buspar) 15 mg DAILY PO Last administered on 06/01/17at 08:44; Start 05/28/17 at 09:00; Stop 06/01/17 at 21:57; Status DC Lorazepam (Ativan) 0.5 mg DAILYWLUN PO Last administered on 06/05/17at 13:29; Start 06/01/17 at 12:00 Buspirone HCl (Buspar) 15 mg BID@0900,1300 PO Last administered on 06/05/17at 08 :11; Start 06/02/17 at 09:00; Stop 06/05/17 at 11:11; Status DC Buspirone HCl (Buspar) 10 mg DAILY@1700 PO Last administered on 06/04/17at 16:56 ; Start 06/02/17 at 17:00; Stop 06/05/17 at 11:11; Status DC Buspirone HCl (Buspar) 15 mg TID@0900,1300,1700 PO Last administered on at 17:33; Start 06/05/17 at 13:00 Divalproex Sodium (Depakote Sprinkles) 375 mg BID92 PO Last administered on at 14:20; Start 06/05/17 at 14:00; Stop 06/05/17 at 18:30; Status DC Divalproex Sodium (Depakote Sprinkles) 250 mg BID92 PO ; Start 06/06/17 at 09:00 Active Scripts Active Reported Klor-Con (Potassium Chloride) 20 Meq Packet 20 Meq PO DAILY Xanax (Alprazolam) 0.25 Mg Tablet 0.25 Mg PO QID Zoloft (Sertraline Hcl) 100 Mg Tablet 100 Mg PO DAILY Lorazepam Intensol (Lorazepam) 2 Mg/1 Ml Oral.conc 0.5 Mg PO PRN Q4HRS PRN Senna S Tablet (Sennosides/Docusate Sodium) 1 Each Tablet 1 Tab PO BID Depakote Sprinkle (Divalproex Sodium) 125 Mg Cap.sprink 500 Mg PO QHS Depakote Sprinkle (Divalproex Sodium) 125 Mg Cap.sprink 125 Mg PO BID92 Tylenol (Acetaminophen) 325 Mg Tablet 650 Mg PO PRN Q6HRS PRN Olanzapine Odt (Olanzapine) 5 Mg Tab.rapdis 5 Mg PO QHS Analgesic [place] (Methyl Salicylate/Menthol) 28 Gm Oint...g. 1 Beck TP PRN QID PRN Maalox Maximum Strength Susp (Mag Hydrox/Al Hydrox/Simeth) 355 Ml Oral.susp 15 Ml PO PRN AFTMEALHC PRN Milk Of Magnesia (Magnesium Hydroxide) 2,400 Mg/10 Ml Oral.susp 2,400 Mg PO PRN QHS PRN Vitamin B-12 (Cyanocobalamin (Vitamin B-12)) 1,000 Mcg Tablet 250 Mcg PO DAILY Lorazepam 0.5 Mg Tablet 0.5 Mg PO PRN Q4HRS PRN Dilantin (Phenytoin Sodium Extended) 100 Mg Capsule 100 Mg PO BID Aspirin 81 Mg Tab.chew 81 Mg PO DAILY I have reviewed the current psychotropics carefully including drug interactions. Risk benefit ratio favors no change other than as noted in my dictated progress note. 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
[2017-06-06] MEDS: LACTOBACILLUS RHAMNOSUS GG 1 CAPSULE. PO SCH ×2 (07:53→20:12)
[2017-06-06] MEDS: SENNOSIDES/DOCUSATE 8.6/50MG TABLET. PO SCH ×2 (07:53→20:12)
[2017-06-06] MEDS: SERTRALINE 100 MG TABLET. PO SCH (07:53)
[2017-06-06] MEDS: PHENYTOIN SODIUM EXTENDED 100 MG CAPSULE PO SCH ×2 (07:53→20:12)
[2017-06-06] MEDS: ASPIRIN 81 MG TAB.CHEW PO SCH (07:54)
[2017-06-06] MEDS: CYANOCOBALAMIN (VITAMIN B-12) 250 MCG TABLET PO SCH (07:54)
[2017-06-06] MEDS: POTASSIUM CHLORIDE 20 MEQ TABLET.ER. PO SCH (07:54)
[2017-06-06] MEDS: busPIRone 15 MG TABLET. PO SCH ×3 (07:54→18:05)
[2017-06-06] MEDS: DIVALPROEX 125 MG CAP.SPRINK PO SCH ×3 (07:55→20:11)
[2017-06-06] MEDS: LORazepam 0.5 MG TABLET PO SCH (15:52)
[2017-06-06 16:24] VITALS: BP 124/66
[2017-06-06] MEDS: MIRTAZAPINE 15 MG TABLET PO SCH (20:12)
--- NOTE | 2017-06-06 21:01 | PDOC ---
Exam Note: Dane Note: Please also refer to the separate dictated note~for this date of service dictated separately.~Patient seen individually. Discussed the patient with Nursing staff reviewed the chart.~Reviewed interim history and current functioning. Reviewed vital signs,~Labs/ Radiology~and current medications noted below. Continue current treatment with the changes noted in the dictated addendum note Assessment: Vital Signs: Vital Signs Date Time Temp Pulse Resp B/P (MAP) Pulse Ox O2 Delivery O2 Flow Rate FiO2 06/06/17 16:24 97.2 107 24 124/66 (85) 95 I&O Intake and Output 06/06/17 07:00 Intake Total 960 ml Balance 960 ml Intake Oral 960 ml # Voids 2 # Bowel Movements 2 Current Medications: Meds: Current Medications Diphtheria/ Tetanus/Acell Pertussis (Boostrix) 0.5 ml ONCE ONCE VAX IM Last administered on 05/01/17at 22:36; Start 05/01/17 at 19:15; Stop 05/01/17 at 19:16 ; Status DC Lorazepam (Ativan) 2 mg 1X ONCE IM Last administered on 05/01/17at 19:45; Start 05/01/17 at 19:45; Stop 05/01/17 at 19:46; Status DC Diphenhydramine HCl (Benadryl) 50 mg 1X ONCE IM Last administered on at 19:45; Start 05/01/17 at 19:45; Stop 05/01/17 at 19:46; Status DC Diphenhydramine HCl (Benadryl) 50 mg STK-MED ONCE .ROUTE ; Start 05/01/17 at 19: 36; Stop 05/01/17 at 19:37; Status DC Lorazepam (Ativan) 1 mg STK-MED ONCE .ROUTE ; Start 05/01/17 at 19:38; Stop at 19:39; Status DC Midazolam HCl (Versed) 2 mg 1X ONCE IV ; Start 05/01/17 at 20:30; Stop at 20:31; Status DC Midazolam HCl (Versed) 5 mg STK-MED ONCE .ROUTE ; Start 05/01/17 at 20:25; Stop 05/01/17 at 20:26; Status DC Midazolam HCl (Versed) 5 mg 1X ONCE NS Last administered on 05/01/17at 20:40; Start 05/01/17 at 21:00; Stop 05/01/17 at 21:01; Status DC Ceftriaxone Sodium (Rocephin Im) 1 gm 1X ONCE IM Last administered on at 22:36; Start 05/01/17 at 21:15; Stop 05/01/17 at 21:16; Status DC Enoxaparin Sodium (Lovenox 60mg Syringe) 50 mg 1X ONCE SQ ; Start 05/01/17 at 21:45; Stop 05/01/17 at 21:45; Status DC Enoxaparin Sodium (Lovenox) 55 mg BID SQ ; Start 05/02/17 at 09:00; Stop at 09:00; Status DC Enoxaparin Sodium (Lovenox 60mg Syringe) 55 mg 1X ONCE SQ Last administered on 05/01/17at 22:35; Start 05/01/17 at 21:45; Stop 05/01/17 at 21:46; Status DC Iohexol (Omnipaque 300 Mg/ml) 75 ml 1X ONCE IV Last administered on 05/01/17at 22:11; Start 05/01/17 at 22:00; Stop 05/01/17 at 22:01; Status DC Midazolam HCl (Versed) 5 mg 1X ONCE IV ; Start 05/01/17 at 22:15; Stop at 22:18; Status DC Midazolam HCl (Versed) 1 mg 1X ONCE IV Last administered on 05/01/17at 22:30; Start 05/01/17 at 23:00; Stop 05/01/17 at 23:02; Status DC Cephalexin HCl (Keflex) 500 mg TID PO Last administered on 05/03/17at 20:27; Start 05/02/17 at 09:00; Stop 05/03/17 at 22:41; Status DC Alprazolam (Xanax) 0.25 mg QID PO Last administered on 05/02/17at 17:32; Start 05/02/17 at 09:00; Stop 05/02/17 at 19:27; Status DC Divalproex Sodium (Depakote Sprinkles) 125 mg BID92 PO Last administered on 05/11at 14:05; Start 05/02/17 at 09:00; Stop 05/11/17 at 18:42; Status DC Divalproex Sodium (Depakote Sprinkles) 500 mg QHS PO Last administered on at 19:41; Start 05/02/17 at 21:00; Stop 05/07/17 at 18:37; Status DC Lorazepam (Ativan) 0.5 mg PRN Q4HRS PRN PO ANXIETY / AGITATION Last administered on 06/02/17at 17:09; Start 05/02/17 at 01:00 Lorazepam (Ativan Intensol) 0.5 mg PRN Q4HRS PRN PO ANXIETY / AGITATION Last administered on 05/29/17at 11:25; Start 05/02/17 at 01:00 Olanzapine (ZyPREXA ZYDIS) 5 mg QHS PO Last administered on 05/07/17at 20:07; Start 05/02/17 at 21:00; Stop 05/08/17 at 19:10; Status DC Sertraline HCl (Zoloft) 100 mg DAILY PO Last administered on 06/06/17 07:53; Start 05/02/17 at 09:00 Levofloxacin (Levaquin) 500 mg DAILY06 PO Last administered on 05/02/17 08:53 ; Start 05/02/17 at 07:30; Stop 05/02/17 at 10:36; Status DC Lactobacillus Rhamnosus (Culturelle) 1 cap BID PO Last administered on at 20:12; Start 05/02/17 at 09:00 Levofloxacin (Levaquin) 250 mg DAILY06 PO Last administered on 05/06/17at 07:45 ; Start 05/03/17 at 06:00; Stop 05/06/17 at 18:15; Status DC Alprazolam (Xanax) 0.25 mg TID PO Last administered on 05/06/17 14:25; Start 05/02/17 at 21:00; Stop 05/06/17 at 20:59; Status DC Alprazolam (Xanax) 0.25 mg BID PO Last administered on 05/09/17at 19:50; Start at 21:00; Stop 05/10/17 at 08:59; Status DC Alprazolam (Xanax) 0.25 mg DAILY PO Last administered on 05/13/17 08:21; Start 05/10/17 at 09:00; Stop 05/14/17 at 08:59; Status DC Mirtazapine (Remeron) 7.5 mg QHS PO Last administered on 05/02/17 19:59; Start 05/02/17 at 21:00; Stop 05/03/17 at 19:31; Status DC Acetaminophen (Tylenol) 650 mg PRN Q6HRS PRN PO PAIN; Start 05/02/17 at 19:30 Aspirin (Children'S Aspirin) 81 mg DAILY PO Last administered on 06/06/17 07: 54; Start 05/03/17 at 09:00 Cyanocobalamin (Vitamin B-12) 250 mcg DAILY PO Last administered on 06/06/17 07:54; Start 05/03/17 at 09:00 Al Hydroxide/Mg Hydroxide (Mylanta Plus Xs) 15 ml PRN AFTMEALHC PRN PO DYSPEPSIA; Start 05/02/17 at 19:30 Multi-Ingredient Ointment (Analgesic [place]) 1 beck PRN QID PRN TP MUSCLE PAIN; Start 05/02/17 at 19:30 Phenytoin Sodium (Dilantin) 100 mg BID PO Last administered on 06/06/17 20:12 ; Start 05/02/17 at 21:00 Senna/Docusate Sodium (Senna Plus) 1 tab BID PO Last administered on 06/06/17 20:12; Start 05/02/17 at 21:00 Magnesium Hydroxide (Milk Of Magnesia) 2,400 mg PRN QHS PRN PO CONSTIPATION Last administered on 05/20/17at 11:56; Start 05/02/17 at 19:45 Potassium Chloride (Klor-Con) 20 meq DAILYWBKFT PO Last administered on 07:54; Start 05/03/17 at 08:00 Neomycin/ Polymyxin/ Bacitracin (Triple Antibiotic Ointment) 1 pkt BID TP Last administered on 05/08/17 08:51; Start 05/03/17 at 21:00; Stop 05/08/17 at 20:59; Status DC Mirtazapine (Remeron) 15 mg QHS PO Last administered on 3/30/18at 20:12; Start 05/03/17 at 21:00 Trazodone HCl (Desyrel) 50 mg PRN QHS PRN PO SLEEP Last administered on at 01:56; Start 05/03/17 at 19:30; Stop 05/16/17 at 18:59; Status DC Alprazolam (Xanax) 0.25 mg 1X ONCE PO Last administered on 05/05/17at 09:36; Start 05/05/17 at 10:00; Stop 05/05/17 at 10:01; Status DC Buspirone HCl (Buspar) 5 mg TID@0900,1300,1700 PO Last administered on at 16:43; Start 05/06/17 at 09:00; Stop 05/06/17 at 18:23; Status DC Buspirone HCl (Buspar) 5 mg BID@1300,1700 PO Last administered on 05/09/17at 14: 08; Start 05/07/17 at 13:00; Stop 05/09/17 at 18:34; Status DC Buspirone HCl (Buspar) 10 mg DAILY PO Last administered on 05/08/17at 08:49; Start 05/07/17 at 09:00; Stop 05/08/17 at 19:10; Status DC Divalproex Sodium (Depakote Sprinkles) 750 mg QHS PO Last administered on at 20:11; Start 05/07/17 at 21:00 Olanzapine (ZyPREXA ZYDIS) 2.5 mg QHS PO Last administered on 05/09/17at 19:48; Start 05/08/17 at 21:00; Stop 05/09/17 at 21:00; Status DC Divalproex Sodium (Depakote Sprinkles) 250 mg BID92 PO Last administered on at 08:11; Start 05/12/17 at 09:00; Stop 06/05/17 at 11:11; Status DC Buspirone HCl (Buspar) 5 mg BID@0900,1300 PO Last administered on 05/18/17at 13: 00; Start 05/15/17 at 13:00; Stop 05/18/17 at 15:50; Status DC Trazodone HCl (Desyrel) 50 mg PRN QHS PRN PO INSOMNIA, MAY REPEAT X1 Last administered on 05/30/17at 19:43; Start 05/16/17 at 19:00 Buspirone HCl (Buspar) 5 mg TID PO Last administered on 05/19/17at 13:50; Start 05/18/17 at 21:00; Stop 05/19/17 at 18:46; Status DC Buspirone HCl (Buspar) 5 mg [id number] PO Last administered on 05/21/17at 12:43; Start 05/19/17 at 21:00; Stop 05/21/17 at 14:16; Status DC Buspirone HCl (Buspar) 5 mg BID@0900,1700 PO Last administered on 05/24/17at 07: 52; Start 05/21/17 at 17:00; Stop 05/24/17 at 16:26; Status DC Buspirone HCl (Buspar) 10 mg DAILY@1300 PO Last administered on 05/24/17at 13:00 ; Start 05/22/17 at 13:00; Stop 05/24/17 at 16:26; Status DC Buspirone HCl (Buspar) 10 mg DAILY@0900,1300,1700 PO Last administered on at 17:20; Start 05/24/17 at 17:00; Stop 05/27/17 at 17:51; Status DC Buspirone HCl (Buspar) 10 mg BID@1300,1700 PO Last administered on 06/01/17at 17 :27; Start 05/28/17 at 13:00; Stop 06/02/17 at 13:00; Status DC Buspirone HCl (Buspar) 15 mg DAILY PO Last administered on 06/01/17at 08:44; Start 05/28/17 at 09:00; Stop 06/01/17 at 21:57; Status DC Lorazepam (Ativan) 0.5 mg DAILYWLUN PO Last administered on 06/06/17at 15:52; Start 06/01/17 at 12:00 Buspirone HCl (Buspar) 15 mg BID@0900,1300 PO Last administered on 06/05/17at 08 :11; Start 06/02/17 at 09:00; Stop 06/05/17 at 11:11; Status DC Buspirone HCl (Buspar) 10 mg DAILY@1700 PO Last administered on 06/04/17at 16:56 ; Start 06/02/17 at 17:00; Stop 06/05/17 at 11:11; Status DC Buspirone HCl (Buspar) 15 mg TID@0900,1300,1700 PO Last administered on at 18:05; Start 06/05/17 at 13:00 Divalproex Sodium (Depakote Sprinkles) 375 mg BID92 PO Last administered on at 14:20; Start 06/05/17 at 14:00; Stop 06/05/17 at 18:30; Status DC Divalproex Sodium (Depakote Sprinkles) 250 mg BID92 PO Last administered on at 15:52; Start 06/06/17 at 09:00 Active Scripts Active Reported Klor-Con (Potassium Chloride) 20 Meq Packet 20 Meq PO DAILY Xanax (Alprazolam) 0.25 Mg Tablet 0.25 Mg PO QID Zoloft (Sertraline Hcl) 100 Mg Tablet 100 Mg PO DAILY Lorazepam Intensol (Lorazepam) 2 Mg/1 Ml Oral.conc 0.5 Mg PO PRN Q4HRS PRN Senna S Tablet (Sennosides/Docusate Sodium) 1 Each Tablet 1 Tab PO BID Depakote Sprinkle (Divalproex Sodium) 125 Mg Cap.sprink 500 Mg PO QHS Depakote Sprinkle (Divalproex Sodium) 125 Mg Cap.sprink 125 Mg PO BID92 Tylenol (Acetaminophen) 325 Mg Tablet 650 Mg PO PRN Q6HRS PRN Olanzapine Odt (Olanzapine) 5 Mg Tab.rapdis 5 Mg PO QHS Analgesic [place] (Methyl Salicylate/Menthol) 28 Gm Oint...g. 1 Beck TP PRN QID PRN Maalox Maximum Strength Susp (Mag Hydrox/Al Hydrox/Simeth) 355 Ml Oral.susp 15 Ml PO PRN AFTMEALHC PRN Milk Of Magnesia (Magnesium Hydroxide) 2,400 Mg/10 Ml Oral.susp 2,400 Mg PO PRN QHS PRN Vitamin B-12 (Cyanocobalamin (Vitamin B-12)) 1,000 Mcg Tablet 250 Mcg PO DAILY Lorazepam 0.5 Mg Tablet 0.5 Mg PO PRN Q4HRS PRN Dilantin (Phenytoin Sodium Extended) 100 Mg Capsule 100 Mg PO BID Aspirin 81 Mg Tab.chew 81 Mg PO DAILY I have reviewed the current psychotropics carefully including drug interactions. Risk benefit ratio favors no change other than as noted in my dictated progress note. 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
--- NOTE | 2017-06-06 23:58 | PN ---
DATE: 06/04/2017 This is a late entry for 06/04/2017 covers elements not covered in my initial note of 06/04/2017. SUBJECTIVE: I met with the patient evening of 06/04/2017. The patient is doing better, remains confused, less anxious at noon time with the Ativan, which seems to help. We will check a valproic acid level on 06/05/2017 morning. REVIEW OF SYSTEMS: No CV, , pulmonary, eye, ENT system symptoms on review. Reliability poor. MENTAL STATUS EXAM: Oriented to herself. Insight, judgment, recent and remote memory, attention, concentration, fund of knowledge poor, consistent with her diagnosis mentioned in my initial note. IMPRESSION: Major neurocognitive disorder, Alzheimer, vascular with delusion, depression, behavioral disturbance. Rest unchanged. PLAN: Continue current psychotropics. Valproic acid level subtherapeutic at 34, but clinically adequate given her age and the fact it may impair her ambulation if we increase it very much and she is doing better on BuSpar anyway, which we have increased gradually. MAN Leandro KO MD DR: LUCRECIA/luz JOB#: [id number] / [id number]
--- NOTE | 2017-06-07 03:07 | PN ---
DATE: 06/05/2017 This is a late entry for 06/05/2017 covers elements not covered in my initial note of 06/05/2017. SUBJECTIVE: I met with the patient in the evening individually and staffed at treatment team meeting in the morning with her daughter, Agata attending. The patient has been calmer for the last couple of days, but morning of 06/05/2017, she was quite agitated, combative, labile. It took 4 people to control her. She had to be placed in the isolative rest cabezas, was beating staff in the morning. All this was discussed with Agata, her daughter at the treatment team meeting in the morning. Appetite 100%, sleeping average 7 hours, slept 7-1/4 hours previous evening. She takes her meds and chocolate wandering, confused. No participation in activities. REVIEW OF SYSTEMS: No CV, , pulmonary, eye, ENT system symptoms on review. Reliability poor. MENTAL STATUS EXAM: Oriented to herself. Insight, judgment, recent and remote memory, attention, concentration, fund of knowledge poor, consistent with her diagnosis mentioned in my initial note. IMPRESSION: Major neurocognitive disorder, Alzheimer, vascular with depression, delusion, behavioral disturbance. Rest unchanged. PLAN: Lengthy discussion about treatment options. I plan to increase the Depakote Sprinkles to 375 mg twice a day. Check CBC, CMP level in 3 days, but her gait is unsteady. She is sitting herself on the floor and increase her Depakote will probably worsen this. We will not increase it even after I initially thought of doing it for behavioral dyscontrol. We will go ahead and increase that BuSpar to 15 mg 3 times a day for her anxiety, which should help her agitation as well. Rest unchanged. Social service staff will discuss with longterm about transition early next week. NAKIA KO MD DR: LUCRECIA/luz JOB#: [id number] / [id number]
[2017-06-07 05:58] VITALS: BP 133/59
[2017-06-07] MEDS: SENNOSIDES/DOCUSATE 8.6/50MG TABLET. PO SCH ×2 (08:08→20:03)
[2017-06-07] MEDS: POTASSIUM CHLORIDE 20 MEQ TABLET.ER. PO SCH (08:08)
[2017-06-07] MEDS: PHENYTOIN SODIUM EXTENDED 100 MG CAPSULE PO SCH ×2 (08:08→20:04)
[2017-06-07] MEDS: busPIRone 15 MG TABLET. PO SCH ×3 (08:08→17:00)
[2017-06-07] MEDS: LACTOBACILLUS RHAMNOSUS GG 1 CAPSULE. PO SCH ×2 (08:09→20:03)
[2017-06-07] MEDS: CYANOCOBALAMIN (VITAMIN B-12) 250 MCG TABLET PO SCH (08:09)
[2017-06-07] MEDS: ASPIRIN 81 MG TAB.CHEW PO SCH (08:09)
[2017-06-07] MEDS: SERTRALINE 100 MG TABLET. PO SCH (08:09)
[2017-06-07] MEDS: DIVALPROEX 125 MG CAP.SPRINK PO SCH ×3 (08:09→20:03)
[2017-06-07] MEDS: LORazepam 0.5 MG TABLET PO SCH (12:32)
[2017-06-07 15:49] VITALS: BP 95/50
[2017-06-07] MEDS: MIRTAZAPINE 15 MG TABLET PO SCH (20:04)
--- NOTE | 2017-06-07 22:52 | PDOC ---
Exam Note: Dane Note: Please also refer to the separate dictated note~for this date of service dictated separately.~Patient seen individually. Discussed the patient with Nursing staff reviewed the chart.~Reviewed interim history and current functioning. Reviewed vital signs,~Labs/ Radiology~and current medications noted below. Continue current treatment with the changes noted in the dictated addendum note Assessment: Vital Signs: Vital Signs Date Time Temp Pulse Resp B/P (MAP) Pulse Ox O2 Delivery O2 Flow Rate FiO2 06/07/17 15:49 98.6 60 16 95/50 (65) 99 I&O Intake and Output 06/07/17 07:00 Intake Total 960 ml Balance 960 ml Intake Oral 960 ml # Voids 1 Current Medications: Meds: Current Medications Diphtheria/ Tetanus/Acell Pertussis (Boostrix) 0.5 ml ONCE ONCE VAX IM Last administered on 05/01/17at 22:36; Start 05/01/17 at 19:15; Stop 05/01/17 at 19:16 ; Status DC Lorazepam (Ativan) 2 mg 1X ONCE IM Last administered on 05/01/17at 19:45; Start 05/01/17 at 19:45; Stop 05/01/17 at 19:46; Status DC Diphenhydramine HCl (Benadryl) 50 mg 1X ONCE IM Last administered on at 19:45; Start 05/01/17 at 19:45; Stop 05/01/17 at 19:46; Status DC Diphenhydramine HCl (Benadryl) 50 mg STK-MED ONCE .ROUTE ; Start 05/01/17 at 19: 36; Stop 05/01/17 at 19:37; Status DC Lorazepam (Ativan) 1 mg STK-MED ONCE .ROUTE ; Start 05/01/17 at 19:38; Stop at 19:39; Status DC Midazolam HCl (Versed) 2 mg 1X ONCE IV ; Start 05/01/17 at 20:30; Stop at 20:31; Status DC Midazolam HCl (Versed) 5 mg STK-MED ONCE .ROUTE ; Start 05/01/17 at 20:25; Stop 05/01/17 at 20:26; Status DC Midazolam HCl (Versed) 5 mg 1X ONCE NS Last administered on 05/01/17at 20:40; Start 05/01/17 at 21:00; Stop 05/01/17 at 21:01; Status DC Ceftriaxone Sodium (Rocephin Im) 1 gm 1X ONCE IM Last administered on at 22:36; Start 05/01/17 at 21:15; Stop 05/01/17 at 21:16; Status DC Enoxaparin Sodium (Lovenox 60mg Syringe) 50 mg 1X ONCE SQ ; Start 05/01/17 at 21:45; Stop 05/01/17 at 21:45; Status DC Enoxaparin Sodium (Lovenox) 55 mg BID SQ ; Start 05/02/17 at 09:00; Stop at 09:00; Status DC Enoxaparin Sodium (Lovenox 60mg Syringe) 55 mg 1X ONCE SQ Last administered on 05/01/17at 22:35; Start 05/01/17 at 21:45; Stop 05/01/17 at 21:46; Status DC Iohexol (Omnipaque 300 Mg/ml) 75 ml 1X ONCE IV Last administered on 05/01/17at 22:11; Start 05/01/17 at 22:00; Stop 05/01/17 at 22:01; Status DC Midazolam HCl (Versed) 5 mg 1X ONCE IV ; Start 05/01/17 at 22:15; Stop at 22:18; Status DC Midazolam HCl (Versed) 1 mg 1X ONCE IV Last administered on 05/01/17at 22:30; Start 05/01/17 at 23:00; Stop 05/01/17 at 23:02; Status DC Cephalexin HCl (Keflex) 500 mg TID PO Last administered on 05/03/17at 20:27; Start 05/02/17 at 09:00; Stop 05/03/17 at 22:41; Status DC Alprazolam (Xanax) 0.25 mg QID PO Last administered on 05/02/17at 17:32; Start 05/02/17 at 09:00; Stop 05/02/17 at 19:27; Status DC Divalproex Sodium (Depakote Sprinkles) 125 mg BID92 PO Last administered on 05/11at 14:05; Start 05/02/17 at 09:00; Stop 05/11/17 at 18:42; Status DC Divalproex Sodium (Depakote Sprinkles) 500 mg QHS PO Last administered on at 19:41; Start 05/02/17 at 21:00; Stop 05/07/17 at 18:37; Status DC Lorazepam (Ativan) 0.5 mg PRN Q4HRS PRN PO ANXIETY / AGITATION Last administered on 06/02/17at 17:09; Start 05/02/17 at 01:00 Lorazepam (Ativan Intensol) 0.5 mg PRN Q4HRS PRN PO ANXIETY / AGITATION Last administered on 05/29/17 11:25; Start 05/02/17 at 01:00 Olanzapine (ZyPREXA ZYDIS) 5 mg QHS PO Last administered on 05/07/17at 20:07; Start 05/02/17 at 21:00; Stop 05/08/17 at 19:10; Status DC Sertraline HCl (Zoloft) 100 mg DAILY PO Last administered on 06/07/17 08:09; Start 05/02/17 at 09:00 Levofloxacin (Levaquin) 500 mg DAILY06 PO Last administered on 05/02/17at 08:53 ; Start 05/02/17 at 07:30; Stop 05/02/17 at 10:36; Status DC Lactobacillus Rhamnosus (Culturelle) 1 cap BID PO Last administered on at 20:03; Start 05/02/17 at 09:00 Levofloxacin (Levaquin) 250 mg DAILY06 PO Last administered on 05/06/17at 07:45 ; Start 05/03/17 at 06:00; Stop 05/06/17 at 18:15; Status DC Alprazolam (Xanax) 0.25 mg TID PO Last administered on 05/06/17 14:25; Start 05/02/17 at 21:00; Stop 05/06/17 at 20:59; Status DC Alprazolam (Xanax) 0.25 mg BID PO Last administered on 05/09/17at 19:50; Start at 21:00; Stop 05/10/17 at 08:59; Status DC Alprazolam (Xanax) 0.25 mg DAILY PO Last administered on 05/13/17 08:21; Start 05/10/17 at 09:00; Stop 05/14/17 at 08:59; Status DC Mirtazapine (Remeron) 7.5 mg QHS PO Last administered on 05/02/17 19:59; Start 05/02/17 at 21:00; Stop 05/03/17 at 19:31; Status DC Acetaminophen (Tylenol) 650 mg PRN Q6HRS PRN PO PAIN; Start 05/02/17 at 19:30 Aspirin (Children'S Aspirin) 81 mg DAILY PO Last administered on 06/07/17 08: 09; Start 05/03/17 at 09:00 Cyanocobalamin (Vitamin B-12) 250 mcg DAILY PO Last administered on 06/07/17 08:09; Start 05/03/17 at 09:00 Al Hydroxide/Mg Hydroxide (Mylanta Plus Xs) 15 ml PRN AFTMEALHC PRN PO DYSPEPSIA; Start 05/02/17 at 19:30 Multi-Ingredient Ointment (Analgesic [place]) 1 beck PRN QID PRN TP MUSCLE PAIN; Start 05/02/17 at 19:30 Phenytoin Sodium (Dilantin) 100 mg BID PO Last administered on 06/07/17 20:04 ; Start 05/02/17 at 21:00 Senna/Docusate Sodium (Senna Plus) 1 tab BID PO Last administered on 06/07/17 20:03; Start 05/02/17 at 21:00 Magnesium Hydroxide (Milk Of Magnesia) 2,400 mg PRN QHS PRN PO CONSTIPATION Last administered on 05/20/17at 11:56; Start 05/02/17 at 19:45 Potassium Chloride (Klor-Con) 20 meq DAILYWBKFT PO Last administered on 08:08; Start 05/03/17 at 08:00 Neomycin/ Polymyxin/ Bacitracin (Triple Antibiotic Ointment) 1 pkt BID TP Last administered on 05/08/17at 08:51; Start 05/03/17 at 21:00; Stop 05/08/17 at 20:59; Status DC Mirtazapine (Remeron) 15 mg QHS PO Last administered on 06/07/17 20:04; Start 05/03/17 at 21:00 Trazodone HCl (Desyrel) 50 mg PRN QHS PRN PO SLEEP Last administered on at 01:56; Start 05/03/17 at 19:30; Stop 05/16/17 at 18:59; Status DC Alprazolam (Xanax) 0.25 mg 1X ONCE PO Last administered on 05/05/17at 09:36; Start 05/05/17 at 10:00; Stop 05/05/17 at 10:01; Status DC Buspirone HCl (Buspar) 5 mg TID@0900,1300,1700 PO Last administered on at 16:43; Start 05/06/17 at 09:00; Stop 05/06/17 at 18:23; Status DC Buspirone HCl (Buspar) 5 mg BID@1300,1700 PO Last administered on 05/09/17at 14: 08; Start 05/07/17 at 13:00; Stop 05/09/17 at 18:34; Status DC Buspirone HCl (Buspar) 10 mg DAILY PO Last administered on 05/08/17at 08:49; Start 05/07/17 at 09:00; Stop 05/08/17 at 19:10; Status DC Divalproex Sodium (Depakote Sprinkles) 750 mg QHS PO Last administered on at 20:03; Start 05/07/17 at 21:00 Olanzapine (ZyPREXA ZYDIS) 2.5 mg QHS PO Last administered on 05/09/17at 19:48; Start 05/08/17 at 21:00; Stop 05/09/17 at 21:00; Status DC Divalproex Sodium (Depakote Sprinkles) 250 mg [id number] PO Last administered on at 08:11; Start 05/12/17 at 09:00; Stop 06/05/17 at 11:11; Status DC Buspirone HCl (Buspar) 5 mg BID@0900,1300 PO Last administered on 05/18/17at 13: 00; Start 05/15/17 at 13:00; Stop 05/18/17 at 15:50; Status DC Trazodone HCl (Desyrel) 50 mg PRN QHS PRN PO INSOMNIA, MAY REPEAT X1 Last administered on 05/30/17at 19:43; Start 05/16/17 at 19:00 Buspirone HCl (Buspar) 5 mg TID PO Last administered on 05/19/17at 13:50; Start 05/18/17 at 21:00; Stop 05/19/17 at 18:46; Status DC Buspirone HCl (Buspar) 5 mg [id number] PO Last administered on 05/21/17at 12:43; Start 05/19/17 at 21:00; Stop 05/21/17 at 14:16; Status DC Buspirone HCl (Buspar) 5 mg BID@0900,1700 PO Last administered on 05/24/17at 07: 52; Start 05/21/17 at 17:00; Stop 05/24/17 at 16:26; Status DC Buspirone HCl (Buspar) 10 mg DAILY@1300 PO Last administered on 05/24/17at 13:00 ; Start 05/22/17 at 13:00; Stop 05/24/17 at 16:26; Status DC Buspirone HCl (Buspar) 10 mg DAILY@0900,1300,1700 PO Last administered on at 17:20; Start 05/24/17 at 17:00; Stop 05/27/17 at 17:51; Status DC Buspirone HCl (Buspar) 10 mg BID@1300,1700 PO Last administered on 06/01/17at 17 :27; Start 05/28/17 at 13:00; Stop 06/02/17 at 13:00; Status DC Buspirone HCl (Buspar) 15 mg DAILY PO Last administered on 06/01/17at 08:44; Start 05/28/17 at 09:00; Stop 06/01/17 at 21:57; Status DC Lorazepam (Ativan) 0.5 mg DAILYWLUN PO Last administered on 06/07/17at 12:32; Start 06/01/17 at 12:00 Buspirone HCl (Buspar) 15 mg BID@0900,1300 PO Last administered on 06/05/17at 08 :11; Start 06/02/17 at 09:00; Stop 3/29/18 at 11:11; Status DC Buspirone HCl (Buspar) 10 mg DAILY@1700 PO Last administered on 06/04/17at 16:56 ; Start 06/02/17 at 17:00; Stop 06/05/17 at 11:11; Status DC Buspirone HCl (Buspar) 15 mg TID@0900,1300,1700 PO Last administered on at 17:00; Start 06/05/17 at 13:00 Divalproex Sodium (Depakote Sprinkles) 375 mg BID92 PO Last administered on at 14:20; Start 06/05/17 at 14:00; Stop 06/05/17 at 18:30; Status DC Divalproex Sodium (Depakote Sprinkles) 250 mg BID92 PO Last administered on at 12:32; Start 06/06/17 at 09:00 Active Scripts Active Reported Klor-Con (Potassium Chloride) 20 Meq Packet 20 Meq PO DAILY Xanax (Alprazolam) 0.25 Mg Tablet 0.25 Mg PO QID Zoloft (Sertraline Hcl) 100 Mg Tablet 100 Mg PO DAILY Lorazepam Intensol (Lorazepam) 2 Mg/1 Ml Oral.conc 0.5 Mg PO PRN Q4HRS PRN Senna S Tablet (Sennosides/Docusate Sodium) 1 Each Tablet 1 Tab PO BID Depakote Sprinkle (Divalproex Sodium) 125 Mg Cap.sprink 500 Mg PO QHS Depakote Sprinkle (Divalproex Sodium) 125 Mg Cap.sprink 125 Mg PO BID92 Tylenol (Acetaminophen) 325 Mg Tablet 650 Mg PO PRN Q6HRS PRN Olanzapine Odt (Olanzapine) 5 Mg Tab.rapdis 5 Mg PO QHS Analgesic [place] (Methyl Salicylate/Menthol) 28 Gm Oint...g. 1 Beck TP PRN QID PRN Maalox Maximum Strength Susp (Mag Hydrox/Al Hydrox/Simeth) 355 Ml Oral.susp 15 Ml PO PRN AFTMEALHC PRN Milk Of Magnesia (Magnesium Hydroxide) 2,400 Mg/10 Ml Oral.susp 2,400 Mg PO PRN QHS PRN Vitamin B-12 (Cyanocobalamin (Vitamin B-12)) 1,000 Mcg Tablet 250 Mcg PO DAILY Lorazepam 0.5 Mg Tablet 0.5 Mg PO PRN Q4HRS PRN Dilantin (Phenytoin Sodium Extended) 100 Mg Capsule 100 Mg PO BID Aspirin 81 Mg Tab.chew 81 Mg PO DAILY I have reviewed the current psychotropics carefully including drug interactions. Risk benefit ratio favors no change other than as noted in my dictated progress note. Diagnosis: Problems: (1) Breakthrough seizure (2) Dementia with behavioral disturbance (3) Anxiety disorder (4) Dementia in Alzheimer's disease with delusions (5) Dementia in Alzheimer's disease with depression (6) Dementia, vascular, with delusions (7) Dementia, vascular, with depression (8) Impulse control disorder NAKIA KO MD Jun 07, 2017 22:52
[2017-06-08 06:01] VITALS: BP 103/53
[2017-06-08] MEDS: DIVALPROEX 125 MG CAP.SPRINK PO SCH ×3 (07:56→19:51)
[2017-06-08 07:57] LABS: BASO % 0 % (0-3); EOS # 0.3 x10^3/uL (0.0-0.7); EOS % 7 % (0-3); HEMATOCRIT 34.7 % (36.0-47.0); HEMOGLOBIN 11.7 g/dL (12.0-15.5); LYMPH # 1.6 x10^3/uL (1.0-4.8); LYMPH % 38 % (24-48); MEAN CORPUSCULAR HEMOGLOBIN 32 pg (25-35); MEAN CORPUSCULAR HGB CONC 34 g/dL (31-37); MEAN CORPUSCULAR VOLUME 95 fL (79-100); MONO # 0.4 x10^3/uL (0.0-1.1); MONO % 11 % (0-9); NEUT # 1.9 x10^3uL (1.8-7.7); NEUT % 45 % (31-73); PLATELET COUNT 188 x10^3/uL (140-400); RED BLOOD COUNT 3.65 x10^6/uL (3.50-5.40); RED CELL DISTRIBUTION WIDTH 15.1 % (11.5-14.5); WHITE BLOOD COUNT 4.2 x10^3/uL (4.0-11.0)
[2017-06-08] MEDS: LACTOBACILLUS RHAMNOSUS GG 1 CAPSULE. PO SCH ×2 (07:57→19:48)
[2017-06-08] MEDS: SENNOSIDES/DOCUSATE 8.6/50MG TABLET. PO SCH ×2 (07:57→19:48)
[2017-06-08] MEDS: ASPIRIN 81 MG TAB.CHEW PO SCH (07:57)
[2017-06-08] MEDS: CYANOCOBALAMIN (VITAMIN B-12) 250 MCG TABLET PO SCH (07:57)
[2017-06-08] MEDS: busPIRone 15 MG TABLET. PO SCH ×3 (07:57→17:12)
[2017-06-08] MEDS: SERTRALINE 100 MG TABLET. PO SCH (07:57)
[2017-06-08] MEDS: POTASSIUM CHLORIDE 20 MEQ TABLET.ER. PO SCH (07:57)
[2017-06-08] MEDS: PHENYTOIN SODIUM EXTENDED 100 MG CAPSULE PO SCH ×2 (07:58→19:48)
[2017-06-08 08:17] LABS: ALBUMIN 3.1 g/dL (3.4-5.0); ALBUMIN/GLOBULIN RATIO 0.9 (1.0-1.7); ALK PHOS 82 U/L (46-116); ALT (SGPT) 27 U/L (14-59); ANION GAP 5 (6-14); AST (SGOT) 26 U/L (15-37); BLOOD UREA NITROGEN 25 mg/dL (7-20); BUN/CREATININE RATIO 31 (6-20); CARBON DIOXIDE 31 mmol/L (21-32); CHLORIDE 108 mmol/L (98-107); CREATININE 0.8 mg/dL (0.6-1.0); GLUCOSE 84 mg/dL (70-99); POTASSIUM 4.4 mmol/L (3.5-5.1); SODIUM 144 mmol/L (136-145); TOTAL BILIRUBIN 0.4 mg/dL (0.2-1.0); TOTAL PROTEIN 6.4 g/dL (6.4-8.2)
[2017-06-08 08:19] LABS: VAL ACID 32 mcg/mL (50-100)
[2017-06-08] MEDS: LORazepam 0.5 MG TABLET PO SCH (12:25)
[2017-06-08 15:29] VITALS: BP 91/56
[2017-06-08] MEDS: MIRTAZAPINE 15 MG TABLET PO SCH (19:48)
--- NOTE | 2017-06-08 20:21 | PN ---
DATE: 06/06/2017 PSYCHIATRIC PROGRESS NOTE This is a late entry 06/06/2017, covers elements not covered in my initial note 06/06/2017. SUBJECTIVE: I met with the patient the evening of 06/06/2017. She has done better during the day, refused breakfast, had a large bowel movement then slept after that. Valproic acid level will be checked 41. REVIEW OF SYSTEMS: No CV, , pulmonary, eye, ENT system symptoms on review. Reliability poor. MENTAL STATUS EXAM: Oriented to herself. Insight, judgment, recent and remote memory, attention, concentration, fund of knowledge poor, consistent with her diagnoses mentioned in my initial note. IMPRESSION: Major neurocognitive disorder, Alzheimer, vascular with depression, delusion, behavioral disturbance. Rest unchanged. PLAN: Check valproic acid level 41. Continue rest psychotropics mentioned in my initial note. MAN Leandro KO MD DR: [email or web address]/luz JOB#: [id number] / [id number]
--- NOTE | 2017-06-08 22:02 | PDOC ---
Exam Note: Dane Note: Please also refer to the separate dictated note~for this date of service dictated separately.~Patient seen individually. Discussed the patient with Nursing staff reviewed the chart.~Reviewed interim history and current functioning. Reviewed vital signs,~Labs/ Radiology~and current medications noted below. Continue current treatment with the changes noted in the dictated addendum note Assessment: Vital Signs: Vital Signs Date Time Temp Pulse Resp B/P (MAP) Pulse Ox O2 Delivery O2 Flow Rate FiO2 06/08/17 15:29 98.2 83 20 91/56 (68) 97 I&O Intake and Output 06/08/17 07:00 Intake Total 840 ml Balance 840 ml Intake Oral 840 ml # Voids 1 Labs: Laboratory Tests Test 06/08/17 07:39 White Blood Count 4.2 x10^3/uL (4.0-11.0) Red Blood Count 3.65 x10^6/uL (3.50-5.40) Hemoglobin 11.7 g/dL (12.0-15.5) L Hematocrit 34.7 % (36.0-47.0) L Mean Corpuscular Volume 95 fL (79-100) Mean Corpuscular Hemoglobin 32 pg (25-35) Mean Corpuscular Hemoglobin Concent 34 g/dL (31-37) Red Cell Distribution Width 15.1 % (11.5-14.5) H Platelet Count 188 x10^3/uL (140-400) Neutrophils (%) (Auto) 45 % (31-73) Lymphocytes (%) (Auto) 38 % (24-48) Monocytes (%) (Auto) 11 % (0-9) H Eosinophils (%) (Auto) 7 % (0-3) H Basophils (%) (Auto) 0 % (0-3) Neutrophils # (Auto) 1.9 x10^3uL (1.8-7.7) Lymphocytes # (Auto) 1.6 x10^3/uL (1.0-4.8) Monocytes # (Auto) 0.4 x10^3/uL (0.0-1.1) Eosinophils # (Auto) 0.3 x10^3/uL (0.0-0.7) Basophils # (Auto) 0.0 x10^3/uL (0.0-0.2) Sodium Level 144 mmol/L (136-145) Potassium Level 4.4 mmol/L (3.5-5.1) Chloride Level 108 mmol/L (98-107) H Carbon Dioxide Level 31 mmol/L (21-32) Anion Gap 5 (6-14) L Blood Urea Nitrogen 25 mg/dL (7-20) H Creatinine 0.8 mg/dL (0.6-1.0) Estimated GFR (Cockcroft-Gault) 68.0 BUN/Creatinine Ratio 31 (6-20) H Glucose Level 84 mg/dL (70-99) Calcium Level 9.0 mg/dL (8.5-10.1) Total Bilirubin 0.4 mg/dL (0.2-1.0) Aspartate Amino Transferase (AST) 26 U/L (15-37) Alanine Aminotransferase (ALT) 27 U/L (14-59) Alkaline Phosphatase 82 U/L (46-116) Total Protein 6.4 g/dL (6.4-8.2) Albumin 3.1 g/dL (3.4-5.0) L Albumin/Globulin Ratio 0.9 (1.0-1.7) L Valproic Acid Level 32 mcg/mL (50-100) L Valproic Acid Last Dose Date 06/07/17 Valproic Acid Last Dose Time 2100 Current Medications: Meds: Current Medications Diphtheria/ Tetanus/Acell Pertussis (Boostrix) 0.5 ml ONCE ONCE VAX IM Last administered on 05/01/17at 22:36; Start 05/01/17 at 19:15; Stop 05/01/17 at 19:16 ; Status DC Lorazepam (Ativan) 2 mg 1X ONCE IM Last administered on 05/01/17at 19:45; Start 05/01/17 at 19:45; Stop 05/01/17 at 19:46; Status DC Diphenhydramine HCl (Benadryl) 50 mg 1X ONCE IM Last administered on at 19:45; Start 05/01/17 at 19:45; Stop 05/01/17 at 19:46; Status DC Diphenhydramine HCl (Benadryl) 50 mg STK-MED ONCE .ROUTE ; Start 05/01/17 at 19: 36; Stop 05/01/17 at 19:37; Status DC Lorazepam (Ativan) 1 mg STK-MED ONCE .ROUTE ; Start 05/01/17 at 19:38; Stop at 19:39; Status DC Midazolam HCl (Versed) 2 mg 1X ONCE IV ; Start 05/01/17 at 20:30; Stop at 20:31; Status DC Midazolam HCl (Versed) 5 mg STK-MED ONCE .ROUTE ; Start 05/01/17 at 20:25; Stop 05/01/17 at 20:26; Status DC Midazolam HCl (Versed) 5 mg 1X ONCE NS Last administered on 05/01/17at 20:40; Start 05/01/17 at 21:00; Stop 05/01/17 at 21:01; Status DC Ceftriaxone Sodium (Rocephin Im) 1 gm 1X ONCE IM Last administered on at 22:36; Start 05/01/17 at 21:15; Stop 05/01/17 at 21:16; Status DC Enoxaparin Sodium (Lovenox 60mg Syringe) 50 mg 1X ONCE SQ ; Start 05/01/17 at 21:45; Stop 05/01/17 at 21:45; Status DC Enoxaparin Sodium (Lovenox) 55 mg BID SQ ; Start 05/02/17 at 09:00; Stop at 09:00; Status DC Enoxaparin Sodium (Lovenox 60mg Syringe) 55 mg 1X ONCE SQ Last administered on 05/01/17at 22:35; Start 05/01/17 at 21:45; Stop 05/01/17 at 21:46; Status DC Iohexol (Omnipaque 300 Mg/ml) 75 ml 1X ONCE IV Last administered on 05/01/17at 22:11; Start 05/01/17 at 22:00; Stop 05/01/17 at 22:01; Status DC Midazolam HCl (Versed) 5 mg 1X ONCE IV ; Start 05/01/17 at 22:15; Stop at 22:18; Status DC Midazolam HCl (Versed) 1 mg 1X ONCE IV Last administered on 05/01/17at 22:30; Start 05/01/17 at 23:00; Stop 05/01/17 at 23:02; Status DC Cephalexin HCl (Keflex) 500 mg TID PO Last administered on 05/03/17 20:27; Start 05/02/17 at 09:00; Stop 05/03/17 at 22:41; Status DC Alprazolam (Xanax) 0.25 mg QID PO Last administered on 05/02/17 17:32; Start 05/02/17 at 09:00; Stop 05/02/17 at 19:27; Status DC Divalproex Sodium (Depakote Sprinkles) 125 mg BID92 PO Last administered on 05/11 14:05; Start 05/02/17 at 09:00; Stop 05/11/17 at 18:42; Status DC Divalproex Sodium (Depakote Sprinkles) 500 mg QHS PO Last administered on 19:41; Start 05/02/17 at 21:00; Stop 05/07/17 at 18:37; Status DC Lorazepam (Ativan) 0.5 mg PRN Q4HRS PRN PO ANXIETY / AGITATION Last administered on 06/02/17 17:09; Start 05/02/17 at 01:00 Lorazepam (Ativan Intensol) 0.5 mg PRN Q4HRS PRN PO ANXIETY / AGITATION Last administered on 05/29/17 11:25; Start 05/02/17 at 01:00 Olanzapine (ZyPREXA ZYDIS) 5 mg QHS PO Last administered on 05/07/17 20:07; Start 05/02/17 at 21:00; Stop 05/08/17 at 19:10; Status DC Sertraline HCl (Zoloft) 100 mg DAILY PO Last administered on 06/08/17 07:57; Start 05/02/17 at 09:00 Levofloxacin (Levaquin) 500 mg DAILY06 PO Last administered on 05/02/17 08:53 ; Start 05/02/17 at 07:30; Stop 05/02/17 at 10:36; Status DC Lactobacillus Rhamnosus (Culturelle) 1 cap BID PO Last administered on 19:48; Start 05/02/17 at 09:00 Levofloxacin (Levaquin) 250 mg DAILY06 PO Last administered on 05/06/17at 07:45 ; Start 05/03/17 at 06:00; Stop 05/06/17 at 18:15; Status DC Alprazolam (Xanax) 0.25 mg TID PO Last administered on 05/06/17at 14:25; Start 05/02/17 at 21:00; Stop 05/06/17 at 20:59; Status DC Alprazolam (Xanax) 0.25 mg BID PO Last administered on 05/09/17 19:50; Start at 21:00; Stop 05/10/17 at 08:59; Status DC Alprazolam (Xanax) 0.25 mg DAILY PO Last administered on 05/13/17 08:21; Start 05/10/17 at 09:00; Stop 05/14/17 at 08:59; Status DC Mirtazapine (Remeron) 7.5 mg QHS PO Last administered on 05/02/17 19:59; Start 05/02/17 at 21:00; Stop 05/03/17 at 19:31; Status DC Acetaminophen (Tylenol) 650 mg PRN Q6HRS PRN PO PAIN; Start 05/02/17 at 19:30 Aspirin (Children'S Aspirin) 81 mg DAILY PO Last administered on 06/08/17 07:57 ; Start 05/03/17 at 09:00 Cyanocobalamin (Vitamin B-12) 250 mcg DAILY PO Last administered on 06/08/17at 07 :57; Start 05/03/17 at 09:00 Al Hydroxide/Mg Hydroxide (Mylanta Plus Xs) 15 ml PRN AFTMEALHC PRN PO DYSPEPSIA; Start 05/02/17 at 19:30 Multi-Ingredient Ointment (Analgesic [place]) 1 beck PRN QID PRN TP MUSCLE PAIN; Start 05/02/17 at 19:30 Phenytoin Sodium (Dilantin) 100 mg BID PO Last administered on 06/08/17 19:48; Start 05/02/17 at 21:00 Senna/Docusate Sodium (Senna Plus) 1 tab BID PO Last administered on 06/08/17 19:48; Start 05/02/17 at 21:00 Magnesium Hydroxide (Milk Of Magnesia) 2,400 mg PRN QHS PRN PO CONSTIPATION Last administered on 05/20/17at 11:56; Start 05/02/17 at 19:45 Potassium Chloride (Klor-Con) 20 meq DAILYWBKFT PO Last administered on at 07:57; Start 05/03/17 at 08:00 Neomycin/ Polymyxin/ Bacitracin (Triple Antibiotic Ointment) 1 pkt BID TP Last administered on 05/08/17 08:51; Start 05/03/17 at 21:00; Stop 05/08/17 at 20:59; Status DC Mirtazapine (Remeron) 15 mg QHS PO Last administered on 06/08/17at 19:48; Start 05/03/17 at 21:00 Trazodone HCl (Desyrel) 50 mg PRN QHS PRN PO SLEEP Last administered on 01:56; Start 05/03/17 at 19:30; Stop 05/16/17 at 18:59; Status DC Alprazolam (Xanax) 0.25 mg 1X ONCE PO Last administered on 05/05/17at 09:36; Start 05/05/17 at 10:00; Stop 05/05/17 at 10:01; Status DC Buspirone HCl (Buspar) 5 mg TID@0900,1300,1700 PO Last administered on at 16:43; Start 05/06/17 at 09:00; Stop 05/06/17 at 18:23; Status DC Buspirone HCl (Buspar) 5 mg BID@1300,1700 PO Last administered on 05/09/17 14: 08; Start 05/07/17 at 13:00; Stop 05/09/17 at 18:34; Status DC Buspirone HCl (Buspar) 10 mg DAILY PO Last administered on 05/08/17at 08:49; Start 05/07/17 at 09:00; Stop 05/08/17 at 19:10; Status DC Divalproex Sodium (Depakote Sprinkles) 750 mg QHS PO Last administered on 19:51; Start 05/07/17 at 21:00 Olanzapine (ZyPREXA ZYDIS) 2.5 mg QHS PO Last administered on 05/09/17 19:48; Start 05/08/17 at 21:00; Stop 05/09/17 at 21:00; Status DC Divalproex Sodium (Depakote Sprinkles) 250 mg [id number] PO Last administered on at 08:11; Start 05/12/17 at 09:00; Stop 06/05/17 at 11:11; Status DC Buspirone HCl (Buspar) 5 mg BID@0900,1300 PO Last administered on 05/18/17at 13: 00; Start 05/15/17 at 13:00; Stop 05/18/17 at 15:50; Status DC Trazodone HCl (Desyrel) 50 mg PRN QHS PRN PO INSOMNIA, MAY REPEAT X1 Last administered on 05/30/17at 19:43; Start 05/16/17 at 19:00 Buspirone HCl (Buspar) 5 mg TID PO Last administered on 05/19/17at 13:50; Start 05/18/17 at 21:00; Stop 05/19/17 at 18:46; Status DC Buspirone HCl (Buspar) 5 mg [id number] PO Last administered on 05/21/17at 12:43; Start 05/19/17 at 21:00; Stop 05/21/17 at 14:16; Status DC Buspirone HCl (Buspar) 5 mg BID@0900,1700 PO Last administered on 05/24/17at 07: 52; Start 05/21/17 at 17:00; Stop 05/24/17 at 16:26; Status DC Buspirone HCl (Buspar) 10 mg DAILY@1300 PO Last administered on 05/24/17at 13:00 ; Start 05/22/17 at 13:00; Stop 05/24/17 at 16:26; Status DC Buspirone HCl (Buspar) 10 mg DAILY@0900,1300,1700 PO Last administered on at 17:20; Start 05/24/17 at 17:00; Stop 05/27/17 at 17:51; Status DC Buspirone HCl (Buspar) 10 mg BID@1300,1700 PO Last administered on 06/01/17at 17 :27; Start 05/28/17 at 13:00; Stop 06/02/17 at 13:00; Status DC Buspirone HCl (Buspar) 15 mg DAILY PO Last administered on 06/01/17at 08:44; Start 05/28/17 at 09:00; Stop 06/01/17 at 21:57; Status DC Lorazepam (Ativan) 0.5 mg DAILYWLUN PO Last administered on 06/08/17at 12:25; Start 06/01/17 at 12:00 Buspirone HCl (Buspar) 15 mg BID@0900,1300 PO Last administered on 06/05/17at 08 :11; Start 06/02/17 at 09:00; Stop 06/05/17 at 11:11; Status DC Buspirone HCl (Buspar) 10 mg DAILY@1700 PO Last administered on 06/04/17at 16:56 ; Start 06/02/17 at 17:00; Stop 06/05/17 at 11:11; Status DC Buspirone HCl (Buspar) 15 mg TID@0900,1300,1700 PO Last administered on at 17:12; Start 06/05/17 at 13:00 Divalproex Sodium (Depakote Sprinkles) 375 mg BID92 PO Last administered on at 14:20; Start 06/05/17 at 14:00; Stop 06/05/17 at 18:30; Status DC Divalproex Sodium (Depakote Sprinkles) 250 mg BID92 PO Last administered on 06/08at 13:29; Start 06/06/17 at 09:00 Active Scripts Active Reported Klor-Con (Potassium Chloride) 20 Meq Packet 20 Meq PO DAILY Xanax (Alprazolam) 0.25 Mg Tablet 0.25 Mg PO QID Zoloft (Sertraline Hcl) 100 Mg Tablet 100 Mg PO DAILY Lorazepam Intensol (Lorazepam) 2 Mg/1 Ml Oral.conc 0.5 Mg PO PRN Q4HRS PRN Senna S Tablet (Sennosides/Docusate Sodium) 1 Each Tablet 1 Tab PO BID Depakote Sprinkle (Divalproex Sodium) 125 Mg Cap.sprink 500 Mg PO QHS Depakote Sprinkle (Divalproex Sodium) 125 Mg Cap.sprink 125 Mg PO BID92 Tylenol (Acetaminophen) 325 Mg Tablet 650 Mg PO PRN Q6HRS PRN Olanzapine Odt (Olanzapine) 5 Mg Tab.rapdis 5 Mg PO QHS Analgesic [place] (Methyl Salicylate/Menthol) 28 Gm Oint...g. 1 Beck TP PRN QID PRN Maalox Maximum Strength Susp (Mag Hydrox/Al Hydrox/Simeth) 355 Ml Oral.susp 15 Ml PO PRN AFTMEALHC PRN Milk Of Magnesia (Magnesium Hydroxide) 2,400 Mg/10 Ml Oral.susp 2,400 Mg PO PRN QHS PRN Vitamin B-12 (Cyanocobalamin (Vitamin B-12)) 1,000 Mcg Tablet 250 Mcg PO DAILY Lorazepam 0.5 Mg Tablet 0.5 Mg PO PRN Q4HRS PRN Dilantin (Phenytoin Sodium Extended) 100 Mg Capsule 100 Mg PO BID Aspirin 81 Mg Tab.chew 81 Mg PO DAILY I have reviewed the current psychotropics carefully including drug interactions. Risk benefit ratio favors no change other than as noted in my dictated progress note. Diagnosis: Problems: (1) Breakthrough seizure (2) Dementia with behavioral disturbance (3) Anxiety disorder (4) Dementia in Alzheimer's disease with delusions (5) Dementia in Alzheimer's disease with depression (6) Dementia, vascular, with delusions (7) Dementia, vascular, with depression (8) Impulse control disorder NAKIA KO MD Jun 08, 2017 22:02
[2017-06-09 06:21] VITALS: BP 124/62
[2017-06-09] MEDS: POTASSIUM CHLORIDE 20 MEQ TABLET.ER. PO SCH (08:44)
[2017-06-09] MEDS: CYANOCOBALAMIN (VITAMIN B-12) 250 MCG TABLET PO SCH (08:44)
[2017-06-09] MEDS: SENNOSIDES/DOCUSATE 8.6/50MG TABLET. PO SCH ×2 (08:44→19:53)
[2017-06-09] MEDS: LACTOBACILLUS RHAMNOSUS GG 1 CAPSULE. PO SCH ×2 (08:44→19:52)
[2017-06-09] MEDS: ASPIRIN 81 MG TAB.CHEW PO SCH (08:44)
[2017-06-09] MEDS: PHENYTOIN SODIUM EXTENDED 100 MG CAPSULE PO SCH ×2 (08:45→19:10)
[2017-06-09] MEDS: SERTRALINE 100 MG TABLET. PO SCH (08:45)
[2017-06-09] MEDS: busPIRone 15 MG TABLET. PO SCH ×3 (08:45→16:46)
[2017-06-09] MEDS: DIVALPROEX 125 MG CAP.SPRINK PO SCH ×3 (08:45→19:09)
[2017-06-09] MEDS: LORazepam 0.5 MG TABLET PO SCH (12:13)
[2017-06-09 15:56] VITALS: BP 131/67
[2017-06-09] MEDS: LORazepam INTENSOL 2 MG/ML BOTTLE PO PRN (16:46)
[2017-06-09] MEDS: LORazepam 0.5 MG TABLET PO PRN (19:09)
[2017-06-09] MEDS: MIRTAZAPINE 15 MG TABLET PO SCH (19:10)
--- NOTE | 2017-06-09 19:12 | RAD ---
2 views right elbow 06/09/2017 Clinical indication: Fall with right elbow pain. COMPARISON: None. FINDINGS: No acute fracture or traumatic malalignment. No significant elbow joint effusion. Normal bony alignment. IMPRESSION: No acute osseous abnormality. Electronically signed by: Carlos A Cuevas MD (06/09/2017 7:09 PM) [facility]
--- NOTE | 2017-06-09 21:01 | PDOC ---
Exam Note: Dane Note: Please also refer to the separate dictated note~for this date of service dictated separately.~Patient seen individually. Discussed the patient with Nursing staff reviewed the chart.~Reviewed interim history and current functioning. Reviewed vital signs,~Labs/ Radiology~and current medications noted below. Continue current treatment with the changes noted in the dictated addendum note Assessment: Vital Signs: Vital Signs Date Time Temp Pulse Resp B/P (MAP) Pulse Ox O2 Delivery O2 Flow Rate FiO2 06/09/17 15:56 97.2 70 18 131/67 (88) 94 Room Air I&O Intake and Output 06/09/17 07:00 Intake Total 960 ml Balance 960 ml Intake Oral 960 ml # Voids 1 # Bowel Movements 1 Current Medications: Meds: Current Medications Diphtheria/ Tetanus/Acell Pertussis (Boostrix) 0.5 ml ONCE ONCE VAX IM Last administered on 05/01/17at 22:36; Start 05/01/17 at 19:15; Stop 05/01/17 at 19:16 ; Status DC Lorazepam (Ativan) 2 mg 1X ONCE IM Last administered on 05/01/17at 19:45; Start 05/01/17 at 19:45; Stop 05/01/17 at 19:46; Status DC Diphenhydramine HCl (Benadryl) 50 mg 1X ONCE IM Last administered on at 19:45; Start 05/01/17 at 19:45; Stop 05/01/17 at 19:46; Status DC Diphenhydramine HCl (Benadryl) 50 mg STK-MED ONCE .ROUTE ; Start 05/01/17 at 19: 36; Stop 05/01/17 at 19:37; Status DC Lorazepam (Ativan) 1 mg STK-MED ONCE .ROUTE ; Start 05/01/17 at 19:38; Stop at 19:39; Status DC Midazolam HCl (Versed) 2 mg 1X ONCE IV ; Start 05/01/17 at 20:30; Stop at 20:31; Status DC Midazolam HCl (Versed) 5 mg STK-MED ONCE .ROUTE ; Start 05/01/17 at 20:25; Stop 05/01/17 at 20:26; Status DC Midazolam HCl (Versed) 5 mg 1X ONCE NS Last administered on 05/01/17at 20:40; Start 05/01/17 at 21:00; Stop 05/01/17 at 21:01; Status DC Ceftriaxone Sodium (Rocephin Im) 1 gm 1X ONCE IM Last administered on at 22:36; Start 05/01/17 at 21:15; Stop 05/01/17 at 21:16; Status DC Enoxaparin Sodium (Lovenox 60mg Syringe) 50 mg 1X ONCE SQ ; Start 05/01/17 at 21:45; Stop 05/01/17 at 21:45; Status DC Enoxaparin Sodium (Lovenox) 55 mg BID SQ ; Start 05/02/17 at 09:00; Stop at 09:00; Status DC Enoxaparin Sodium (Lovenox 60mg Syringe) 55 mg 1X ONCE SQ Last administered on 05/01/17at 22:35; Start 05/01/17 at 21:45; Stop 05/01/17 at 21:46; Status DC Iohexol (Omnipaque 300 Mg/ml) 75 ml 1X ONCE IV Last administered on 05/01/17at 22:11; Start 05/01/17 at 22:00; Stop 05/01/17 at 22:01; Status DC Midazolam HCl (Versed) 5 mg 1X ONCE IV ; Start 05/01/17 at 22:15; Stop at 22:18; Status DC Midazolam HCl (Versed) 1 mg 1X ONCE IV Last administered on 05/01/17at 22:30; Start 05/01/17 at 23:00; Stop 05/01/17 at 23:02; Status DC Cephalexin HCl (Keflex) 500 mg TID PO Last administered on 05/03/17at 20:27; Start 05/02/17 at 09:00; Stop 05/03/17 at 22:41; Status DC Alprazolam (Xanax) 0.25 mg QID PO Last administered on 05/02/17at 17:32; Start 05/02/17 at 09:00; Stop 05/02/17 at 19:27; Status DC Divalproex Sodium (Depakote Sprinkles) 125 mg [id number] PO Last administered on 05/11at 14:05; Start 05/02/17 at 09:00; Stop 05/11/17 at 18:42; Status DC Divalproex Sodium (Depakote Sprinkles) 500 mg QHS PO Last administered on at 19:41; Start 05/02/17 at 21:00; Stop 05/07/17 at 18:37; Status DC Lorazepam (Ativan) 0.5 mg PRN Q4HRS PRN PO ANXIETY / AGITATION Last administered on 06/09/17 19:09; Start 05/02/17 at 01:00 Lorazepam (Ativan Intensol) 0.5 mg PRN Q4HRS PRN PO ANXIETY / AGITATION Last administered on 06/09/17 16:46; Start 05/02/17 at 01:00 Olanzapine (ZyPREXA ZYDIS) 5 mg QHS PO Last administered on 05/07/17at 20:07; Start 05/02/17 at 21:00; Stop 05/08/17 at 19:10; Status DC Sertraline HCl (Zoloft) 100 mg DAILY PO Last administered on 06/09/17 08:45; Start 05/02/17 at 09:00 Levofloxacin (Levaquin) 500 mg DAILY06 PO Last administered on 05/02/17at 08:53 ; Start 05/02/17 at 07:30; Stop 05/02/17 at 10:36; Status DC Lactobacillus Rhamnosus (Culturelle) 1 cap BID PO Last administered on 19:52; Start 05/02/17 at 09:00 Levofloxacin (Levaquin) 250 mg DAILY06 PO Last administered on 05/06/17at 07:45 ; Start 05/03/17 at 06:00; Stop 05/06/17 at 18:15; Status DC Alprazolam (Xanax) 0.25 mg TID PO Last administered on 05/06/17at 14:25; Start 05/02/17 at 21:00; Stop 05/06/17 at 20:59; Status DC Alprazolam (Xanax) 0.25 mg BID PO Last administered on 05/09/17at 19:50; Start at 21:00; Stop 05/10/17 at 08:59; Status DC Alprazolam (Xanax) 0.25 mg DAILY PO Last administered on 05/13/17 08:21; Start 05/10/17 at 09:00; Stop 05/14/17 at 08:59; Status DC Mirtazapine (Remeron) 7.5 mg QHS PO Last administered on 05/02/17 19:59; Start 05/02/17 at 21:00; Stop 05/03/17 at 19:31; Status DC Acetaminophen (Tylenol) 650 mg PRN Q6HRS PRN PO PAIN; Start 05/02/17 at 19:30 Aspirin (Children'S Aspirin) 81 mg DAILY PO Last administered on 06/09/17 08:44 ; Start 05/03/17 at 09:00 Cyanocobalamin (Vitamin B-12) 250 mcg DAILY PO Last administered on 06/09/17 08 :44; Start 05/03/17 at 09:00 Al Hydroxide/Mg Hydroxide (Mylanta Plus Xs) 15 ml PRN AFTMEALHC PRN PO DYSPEPSIA; Start 05/02/17 at 19:30 Multi-Ingredient Ointment (Analgesic [place]) 1 beck PRN QID PRN TP MUSCLE PAIN; Start 05/02/17 at 19:30 Phenytoin Sodium (Dilantin) 100 mg BID PO Last administered on 06/09/17 19:10; Start 05/02/17 at 21:00 Senna/Docusate Sodium (Senna Plus) 1 tab BID PO Last administered on 06/09/17 19:53; Start 05/02/17 at 21:00 Magnesium Hydroxide (Milk Of Magnesia) 2,400 mg PRN QHS PRN PO CONSTIPATION Last administered on 05/20/17at 11:56; Start 05/02/17 at 19:45 Potassium Chloride (Klor-Con) 20 meq DAILYWBKFT PO Last administered on 08:44; Start 05/03/17 at 08:00 Neomycin/ Polymyxin/ Bacitracin (Triple Antibiotic Ointment) 1 pkt BID TP Last administered on 05/08/17 08:51; Start 05/03/17 at 21:00; Stop 05/08/17 at 20:59; Status DC Mirtazapine (Remeron) 15 mg QHS PO Last administered on 06/09/17 19:10; Start 05/03/17 at 21:00 Trazodone HCl (Desyrel) 50 mg PRN QHS PRN PO SLEEP Last administered on at 01:56; Start 05/03/17 at 19:30; Stop 05/16/17 at 18:59; Status DC Alprazolam (Xanax) 0.25 mg 1X ONCE PO Last administered on 05/05/17at 09:36; Start 05/05/17 at 10:00; Stop 05/05/17 at 10:01; Status DC Buspirone HCl (Buspar) 5 mg TID@0900,1300,1700 PO Last administered on at 16:43; Start 05/06/17 at 09:00; Stop 05/06/17 at 18:23; Status DC Buspirone HCl (Buspar) 5 mg BID@1300,1700 PO Last administered on 05/09/17 14: 08; Start 05/07/17 at 13:00; Stop 05/09/17 at 18:34; Status DC Buspirone HCl (Buspar) 10 mg DAILY PO Last administered on 05/08/17at 08:49; Start 05/07/17 at 09:00; Stop 05/08/17 at 19:10; Status DC Divalproex Sodium (Depakote Sprinkles) 750 mg QHS PO Last administered on 19:09; Start 05/07/17 at 21:00 Olanzapine (ZyPREXA ZYDIS) 2.5 mg QHS PO Last administered on 05/09/17at 19:48; Start 05/08/17 at 21:00; Stop 05/09/17 at 21:00; Status DC Divalproex Sodium (Depakote Sprinkles) 250 mg [id number] PO Last administered on at 08:11; Start 05/12/17 at 09:00; Stop 06/05/17 at 11:11; Status DC Buspirone HCl (Buspar) 5 mg BID@0900,1300 PO Last administered on 05/18/17at 13: 00; Start 05/15/17 at 13:00; Stop 05/18/17 at 15:50; Status DC Trazodone HCl (Desyrel) 50 mg PRN QHS PRN PO INSOMNIA, MAY REPEAT X1 Last administered on 05/30/17at 19:43; Start 05/16/17 at 19:00 Buspirone HCl (Buspar) 5 mg TID PO Last administered on 05/19/17at 13:50; Start 05/18/17 at 21:00; Stop 05/19/17 at 18:46; Status DC Buspirone HCl (Buspar) 5 mg [id number] PO Last administered on 05/21/17at 12:43; Start 05/19/17 at 21:00; Stop 05/21/17 at 14:16; Status DC Buspirone HCl (Buspar) 5 mg BID@0900,1700 PO Last administered on 05/24/17at 07: 52; Start 05/21/17 at 17:00; Stop 05/24/17 at 16:26; Status DC Buspirone HCl (Buspar) 10 mg DAILY@1300 PO Last administered on 05/24/17at 13:00 ; Start 05/22/17 at 13:00; Stop 05/24/17 at 16:26; Status DC Buspirone HCl (Buspar) 10 mg DAILY@0900,1300,1700 PO Last administered on at 17:20; Start 05/24/17 at 17:00; Stop 05/27/17 at 17:51; Status DC Buspirone HCl (Buspar) 10 mg BID@1300,1700 PO Last administered on 06/01/17at 17 :27; Start 05/28/17 at 13:00; Stop 06/02/17 at 13:00; Status DC Buspirone HCl (Buspar) 15 mg DAILY PO Last administered on 06/01/17at 08:44; Start 05/28/17 at 09:00; Stop 06/01/17 at 21:57; Status DC Lorazepam (Ativan) 0.5 mg DAILYWLUN PO Last administered on 06/09/17at 12:13; Start 06/01/17 at 12:00 Buspirone HCl (Buspar) 15 mg BID@0900,1300 PO Last administered on 06/05/17at 08 :11; Start 06/02/17 at 09:00; Stop 06/05/17 at 11:11; Status DC Buspirone HCl (Buspar) 10 mg DAILY@1700 PO Last administered on 06/04/17at 16:56 ; Start 06/02/17 at 17:00; Stop 06/05/17 at 11:11; Status DC Buspirone HCl (Buspar) 15 mg TID@0900,1300,1700 PO Last administered on at 16:46; Start 06/05/17 at 13:00 Divalproex Sodium (Depakote Sprinkles) 375 mg BID92 PO Last administered on at 14:20; Start 06/05/17 at 14:00; Stop 06/05/17 at 18:30; Status DC Divalproex Sodium (Depakote Sprinkles) 250 mg BID92 PO Last administered on 06/09at 12:39; Start 06/06/17 at 09:00; Stop 06/09/17 at 18:42; Status DC Divalproex Sodium (Depakote Sprinkles) 125 mg BID92 PO ; Start 06/10/17 at 09:00 Active Scripts Active Reported Klor-Con (Potassium Chloride) 20 Meq Packet 20 Meq PO DAILY Xanax (Alprazolam) 0.25 Mg Tablet 0.25 Mg PO QID Zoloft (Sertraline Hcl) 100 Mg Tablet 100 Mg PO DAILY Lorazepam Intensol (Lorazepam) 2 Mg/1 Ml Oral.conc 0.5 Mg PO PRN Q4HRS PRN Senna S Tablet (Sennosides/Docusate Sodium) 1 Each Tablet 1 Tab PO BID Depakote Sprinkle (Divalproex Sodium) 125 Mg Cap.sprink 500 Mg PO QHS Depakote Sprinkle (Divalproex Sodium) 125 Mg Cap.sprink 125 Mg PO BID92 Tylenol (Acetaminophen) 325 Mg Tablet 650 Mg PO PRN Q6HRS PRN Olanzapine Odt (Olanzapine) 5 Mg Tab.rapdis 5 Mg PO QHS Analgesic [place] (Methyl Salicylate/Menthol) 28 Gm Oint...g. 1 Beck TP PRN QID PRN Maalox Maximum Strength Susp (Mag Hydrox/Al Hydrox/Simeth) 355 Ml Oral.susp 15 Ml PO PRN AFTMEALHC PRN Milk Of Magnesia (Magnesium Hydroxide) 2,400 Mg/10 Ml Oral.susp 2,400 Mg PO PRN QHS PRN Vitamin B-12 (Cyanocobalamin (Vitamin B-12)) 1,000 Mcg Tablet 250 Mcg PO DAILY Lorazepam 0.5 Mg Tablet 0.5 Mg PO PRN Q4HRS PRN Dilantin (Phenytoin Sodium Extended) 100 Mg Capsule 100 Mg PO BID Aspirin 81 Mg Tab.chew 81 Mg PO DAILY I have reviewed the current psychotropics carefully including drug interactions. Risk benefit ratio favors no change other than as noted in my dictated progress note. Diagnosis: Problems: (1) Breakthrough seizure (2) Dementia with behavioral disturbance (3) Anxiety disorder (4) Dementia in Alzheimer's disease with delusions (5) Dementia in Alzheimer's disease with depression (6) Dementia, vascular, with delusions (7) Dementia, vascular, with depression (8) Impulse control disorder NAKIA KO MD Jun 09, 2017 21:01
[2017-06-09] MEDS: traZODone 50 MG TABLET. PO PRN (23:20)
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
--- NOTE | 2017-06-10 03:44 | PN ---
DATE: 06/08/2017 This late entry 06/08/2017 covers elements not covered in my initial note 06/08/2017. Met with the patient evening of 06/08/2017. The patient continues to wander, quite oblivious of her surroundings, but more cooperative, not aggressive. REVIEW OF SYSTEMS: No CV, , pulmonary, eye, ENT system symptoms on review. Reliability poor. MENTAL STATUS EXAM: Oriented to herself. Insight, judgment, recent and remote memory, attention, concentration, fund of knowledge poor, consistent with her diagnosis mentioned in my initial note. IMPRESSION: Major neurocognitive disorder, Alzheimer, vascular with delusion, depression, behavioral disturbance. PLAN: Continue psychotropics mentioned in my initial note. I prefer not to increase the Depakote since her gait gets affected in a rather leave the rest of the psychotropics unchanged for now including the BuSpar. MAN Leandro KO MD DR: LUCRECIA/luz JOB#: [id number] / [id number]
[2017-06-10 06:06] VITALS: BP 102/54
[2017-06-10] MEDS: SERTRALINE 100 MG TABLET. PO SCH (07:35)
[2017-06-10] MEDS: ASPIRIN 81 MG TAB.CHEW PO SCH (07:36)
[2017-06-10] MEDS: POTASSIUM CHLORIDE 20 MEQ TABLET.ER. PO SCH (07:36)
[2017-06-10] MEDS: SENNOSIDES/DOCUSATE 8.6/50MG TABLET. PO SCH ×2 (07:36→19:12)
[2017-06-10] MEDS: PHENYTOIN SODIUM EXTENDED 100 MG CAPSULE PO SCH ×2 (07:36→19:12)
[2017-06-10] MEDS: busPIRone 15 MG TABLET. PO SCH ×3 (07:37→16:49)
[2017-06-10] MEDS: LACTOBACILLUS RHAMNOSUS GG 1 CAPSULE. PO SCH ×2 (07:37→19:15)
[2017-06-10] MEDS: CYANOCOBALAMIN (VITAMIN B-12) 250 MCG TABLET PO SCH (07:37)
[2017-06-10] MEDS: DIVALPROEX 125 MG CAP.SPRINK PO SCH ×3 (07:38→19:13)
[2017-06-10] MEDS: LORazepam 0.5 MG TABLET PO SCH (12:04)
[2017-06-10 15:40] VITALS: BP 108/65
[2017-06-10] MEDS: MIRTAZAPINE 15 MG TABLET PO SCH (19:12)
[2017-06-10] MEDS: traZODone 50 MG TABLET. PO PRN (19:15)
--- NOTE | 2017-06-10 20:59 | PDOC ---
Exam Note: Dane Note: Please also refer to the separate dictated note~for this date of service dictated separately.~Patient seen individually. Discussed the patient with Nursing staff reviewed the chart.~Reviewed interim history and current functioning. Reviewed vital signs,~Labs/ Radiology~and current medications noted below. Continue current treatment with the changes noted in the dictated addendum note Assessment: Vital Signs: Vital Signs Date Time Temp Pulse Resp B/P (MAP) Pulse Ox O2 Delivery O2 Flow Rate FiO2 06/10/17 15:40 97.4 71 16 108/65 (79) 96 06/09/17 15:56 Room Air I&O Intake and Output 06/10/17 07:00 Intake Total 720 ml Balance 720 ml Intake Oral 720 ml # Voids 1 Current Medications: Meds: Current Medications Diphtheria/ Tetanus/Acell Pertussis (Boostrix) 0.5 ml ONCE ONCE VAX IM Last administered on 05/01/17at 22:36; Start 05/01/17 at 19:15; Stop 05/01/17 at 19:16 ; Status DC Lorazepam (Ativan) 2 mg 1X ONCE IM Last administered on 05/01/17at 19:45; Start 05/01/17 at 19:45; Stop 05/01/17 at 19:46; Status DC Diphenhydramine HCl (Benadryl) 50 mg 1X ONCE IM Last administered on at 19:45; Start 05/01/17 at 19:45; Stop 05/01/17 at 19:46; Status DC Diphenhydramine HCl (Benadryl) 50 mg STK-MED ONCE .ROUTE ; Start 05/01/17 at 19: 36; Stop 05/01/17 at 19:37; Status DC Lorazepam (Ativan) 1 mg STK-MED ONCE .ROUTE ; Start 05/01/17 at 19:38; Stop at 19:39; Status DC Midazolam HCl (Versed) 2 mg 1X ONCE IV ; Start 05/01/17 at 20:30; Stop at 20:31; Status DC Midazolam HCl (Versed) 5 mg STK-MED ONCE .ROUTE ; Start 05/01/17 at 20:25; Stop 05/01/17 at 20:26; Status DC Midazolam HCl (Versed) 5 mg 1X ONCE NS Last administered on 05/01/17at 20:40; Start 05/01/17 at 21:00; Stop 05/01/17 at 21:01; Status DC Ceftriaxone Sodium (Rocephin Im) 1 gm 1X ONCE IM Last administered on at 22:36; Start 05/01/17 at 21:15; Stop 05/01/17 at 21:16; Status DC Enoxaparin Sodium (Lovenox 60mg Syringe) 50 mg 1X ONCE SQ ; Start 05/01/17 at 21:45; Stop 05/01/17 at 21:45; Status DC Enoxaparin Sodium (Lovenox) 55 mg BID SQ ; Start 05/02/17 at 09:00; Stop at 09:00; Status DC Enoxaparin Sodium (Lovenox 60mg Syringe) 55 mg 1X ONCE SQ Last administered on 05/01/17at 22:35; Start 05/01/17 at 21:45; Stop 05/01/17 at 21:46; Status DC Iohexol (Omnipaque 300 Mg/ml) 75 ml 1X ONCE IV Last administered on 05/01/17at 22:11; Start 05/01/17 at 22:00; Stop 05/01/17 at 22:01; Status DC Midazolam HCl (Versed) 5 mg 1X ONCE IV ; Start 05/01/17 at 22:15; Stop at 22:18; Status DC Midazolam HCl (Versed) 1 mg 1X ONCE IV Last administered on 05/01/17at 22:30; Start 05/01/17 at 23:00; Stop 05/01/17 at 23:02; Status DC Cephalexin HCl (Keflex) 500 mg TID PO Last administered on 05/03/17at 20:27; Start 05/02/17 at 09:00; Stop 05/03/17 at 22:41; Status DC Alprazolam (Xanax) 0.25 mg QID PO Last administered on 05/02/17at 17:32; Start 05/02/17 at 09:00; Stop 05/02/17 at 19:27; Status DC Divalproex Sodium (Depakote Sprinkles) 125 mg BID92 PO Last administered on 05/11at 14:05; Start 05/02/17 at 09:00; Stop 05/11/17 at 18:42; Status DC Divalproex Sodium (Depakote Sprinkles) 500 mg QHS PO Last administered on at 19:41; Start 05/02/17 at 21:00; Stop 05/07/17 at 18:37; Status DC Lorazepam (Ativan) 0.5 mg PRN Q4HRS PRN PO ANXIETY / AGITATION Last administered on 06/09/17 19:09; Start 05/02/17 at 01:00 Lorazepam (Ativan Intensol) 0.5 mg PRN Q4HRS PRN PO ANXIETY / AGITATION Last administered on 06/09/17 16:46; Start 05/02/17 at 01:00 Olanzapine (ZyPREXA ZYDIS) 5 mg QHS PO Last administered on 05/07/17 20:07; Start 05/02/17 at 21:00; Stop 05/08/17 at 19:10; Status DC Sertraline HCl (Zoloft) 100 mg DAILY PO Last administered on 06/10/17 07:35; Start 05/02/17 at 09:00 Levofloxacin (Levaquin) 500 mg DAILY06 PO Last administered on 05/02/17at 08:53 ; Start 05/02/17 at 07:30; Stop 05/02/17 at 10:36; Status DC Lactobacillus Rhamnosus (Culturelle) 1 cap BID PO Last administered on at 19:15; Start 05/02/17 at 09:00 Levofloxacin (Levaquin) 250 mg DAILY06 PO Last administered on 05/06/17at 07:45 ; Start 05/03/17 at 06:00; Stop 05/06/17 at 18:15; Status DC Alprazolam (Xanax) 0.25 mg TID PO Last administered on 05/06/17at 14:25; Start 05/02/17 at 21:00; Stop 05/06/17 at 20:59; Status DC Alprazolam (Xanax) 0.25 mg BID PO Last administered on 05/09/17at 19:50; Start at 21:00; Stop 05/10/17 at 08:59; Status DC Alprazolam (Xanax) 0.25 mg DAILY PO Last administered on 05/13/17 08:21; Start 05/10/17 at 09:00; Stop 05/14/17 at 08:59; Status DC Mirtazapine (Remeron) 7.5 mg QHS PO Last administered on 05/02/17 19:59; Start 05/02/17 at 21:00; Stop 05/03/17 at 19:31; Status DC Acetaminophen (Tylenol) 650 mg PRN Q6HRS PRN PO PAIN; Start 05/02/17 at 19:30 Aspirin (Children'S Aspirin) 81 mg DAILY PO Last administered on 06/10/17 07:36 ; Start 05/03/17 at 09:00 Cyanocobalamin (Vitamin B-12) 250 mcg DAILY PO Last administered on 06/10/17 07 :37; Start 05/03/17 at 09:00 Al Hydroxide/Mg Hydroxide (Mylanta Plus Xs) 15 ml PRN AFTMEALHC PRN PO DYSPEPSIA; Start 05/02/17 at 19:30 Multi-Ingredient Ointment (Analgesic [place]) 1 beck PRN QID PRN TP MUSCLE PAIN; Start 05/02/17 at 19:30 Phenytoin Sodium (Dilantin) 100 mg BID PO Last administered on 06/10/17 19:12; Start 05/02/17 at 21:00 Senna/Docusate Sodium (Senna Plus) 1 tab BID PO Last administered on 06/10/17 19:12; Start 05/02/17 at 21:00 Magnesium Hydroxide (Milk Of Magnesia) 2,400 mg PRN QHS PRN PO CONSTIPATION Last administered on 05/20/17at 11:56; Start 05/02/17 at 19:45 Potassium Chloride (Klor-Con) 20 meq DAILYWBKFT PO Last administered on 07:36; Start 05/03/17 at 08:00 Neomycin/ Polymyxin/ Bacitracin (Triple Antibiotic Ointment) 1 pkt BID TP Last administered on 05/08/17 08:51; Start 05/03/17 at 21:00; Stop 05/08/17 at 20:59; Status DC Mirtazapine (Remeron) 15 mg QHS PO Last administered on 06/10/17 19:12; Start 05/03/17 at 21:00 Trazodone HCl (Desyrel) 50 mg PRN QHS PRN PO SLEEP Last administered on 01:56; Start 05/03/17 at 19:30; Stop 05/16/17 at 18:59; Status DC Alprazolam (Xanax) 0.25 mg 1X ONCE PO Last administered on 05/05/17 09:36; Start 05/05/17 at 10:00; Stop 05/05/17 at 10:01; Status DC Buspirone HCl (Buspar) 5 mg TID@0900,1300,1700 PO Last administered on at 16:43; Start 05/06/17 at 09:00; Stop 05/06/17 at 18:23; Status DC Buspirone HCl (Buspar) 5 mg BID@1300,1700 PO Last administered on 05/09/17 14: 08; Start 05/07/17 at 13:00; Stop 05/09/17 at 18:34; Status DC Buspirone HCl (Buspar) 10 mg DAILY PO Last administered on 05/08/17 08:49; Start 05/07/17 at 09:00; Stop 05/08/17 at 19:10; Status DC Divalproex Sodium (Depakote Sprinkles) 750 mg QHS PO Last administered on 19:13; Start 05/07/17 at 21:00 Olanzapine (ZyPREXA ZYDIS) 2.5 mg QHS PO Last administered on 05/09/17 19:48; Start 05/08/17 at 21:00; Stop 05/09/17 at 21:00; Status DC Divalproex Sodium (Depakote Sprinkles) 250 mg [id number] PO Last administered on 08:11; Start 05/12/17 at 09:00; Stop 06/05/17 at 11:11; Status DC Buspirone HCl (Buspar) 5 mg BID@0900,1300 PO Last administered on 05/18/17at 13: 00; Start 05/15/17 at 13:00; Stop 05/18/17 at 15:50; Status DC Trazodone HCl (Desyrel) 50 mg PRN QHS PRN PO INSOMNIA, MAY REPEAT X1 Last administered on 06/10/17 19:15; Start 05/16/17 at 19:00 Buspirone HCl (Buspar) 5 mg TID PO Last administered on 05/19/17at 13:50; Start 05/18/17 at 21:00; Stop 05/19/17 at 18:46; Status DC Buspirone HCl (Buspar) 5 mg [id number] PO Last administered on 05/21/17at 12:43; Start 05/19/17 at 21:00; Stop 05/21/17 at 14:16; Status DC Buspirone HCl (Buspar) 5 mg BID@0900,1700 PO Last administered on 05/24/17at 07: 52; Start 05/21/17 at 17:00; Stop 05/24/17 at 16:26; Status DC Buspirone HCl (Buspar) 10 mg DAILY@1300 PO Last administered on 05/24/17at 13:00 ; Start 05/22/17 at 13:00; Stop 05/24/17 at 16:26; Status DC Buspirone HCl (Buspar) 10 mg DAILY@0900,1300,1700 PO Last administered on at 17:20; Start 05/24/17 at 17:00; Stop 05/27/17 at 17:51; Status DC Buspirone HCl (Buspar) 10 mg BID@1300,1700 PO Last administered on 06/01/17at 17 :27; Start 05/28/17 at 13:00; Stop 06/02/17 at 13:00; Status DC Buspirone HCl (Buspar) 15 mg DAILY PO Last administered on 06/01/17at 08:44; Start 05/28/17 at 09:00; Stop 06/01/17 at 21:57; Status DC Lorazepam (Ativan) 0.5 mg DAILYWLUN PO Last administered on 06/10/17at 12:04; Start 06/01/17 at 12:00 Buspirone HCl (Buspar) 15 mg BID@0900,1300 PO Last administered on 06/05/17at 08 :11; Start 06/02/17 at 09:00; Stop 06/05/17 at 11:11; Status DC Buspirone HCl (Buspar) 10 mg DAILY@1700 PO Last administered on 06/04/17at 16:56 ; Start 06/02/17 at 17:00; Stop 06/05/17 at 11:11; Status DC Buspirone HCl (Buspar) 15 mg TID@0900,1300,1700 PO Last administered on at 16:49; Start 06/05/17 at 13:00 Divalproex Sodium (Depakote Sprinkles) 375 mg BID92 PO Last administered on at 14:20; Start 06/05/17 at 14:00; Stop 06/05/17 at 18:30; Status DC Divalproex Sodium (Depakote Sprinkles) 250 mg BID92 PO Last administered on 06/09at 12:39; Start 06/06/17 at 09:00; Stop 06/09/17 at 18:42; Status DC Divalproex Sodium (Depakote Sprinkles) 125 mg BID92 PO Last administered on 06/10at 13:43; Start 06/10/17 at 09:00 Active Scripts Active Reported Klor-Con (Potassium Chloride) 20 Meq Packet 20 Meq PO DAILY Xanax (Alprazolam) 0.25 Mg Tablet 0.25 Mg PO QID Zoloft (Sertraline Hcl) 100 Mg Tablet 100 Mg PO DAILY Lorazepam Intensol (Lorazepam) 2 Mg/1 Ml Oral.conc 0.5 Mg PO PRN Q4HRS PRN Senna S Tablet (Sennosides/Docusate Sodium) 1 Each Tablet 1 Tab PO BID Depakote Sprinkle (Divalproex Sodium) 125 Mg Cap.sprink 500 Mg PO QHS Depakote Sprinkle (Divalproex Sodium) 125 Mg Cap.sprink 125 Mg PO BID92 Tylenol (Acetaminophen) 325 Mg Tablet 650 Mg PO PRN Q6HRS PRN Olanzapine Odt (Olanzapine) 5 Mg Tab.rapdis 5 Mg PO QHS Analgesic [place] (Methyl Salicylate/Menthol) 28 Gm Oint...g. 1 Beck TP PRN QID PRN Maalox Maximum Strength Susp (Mag Hydrox/Al Hydrox/Simeth) 355 Ml Oral.susp 15 Ml PO PRN AFTMEALHC PRN Milk Of Magnesia (Magnesium Hydroxide) 2,400 Mg/10 Ml Oral.susp 2,400 Mg PO PRN QHS PRN Vitamin B-12 (Cyanocobalamin (Vitamin B-12)) 1,000 Mcg Tablet 250 Mcg PO DAILY Lorazepam 0.5 Mg Tablet 0.5 Mg PO PRN Q4HRS PRN Dilantin (Phenytoin Sodium Extended) 100 Mg Capsule 100 Mg PO BID Aspirin 81 Mg Tab.chew 81 Mg PO DAILY I have reviewed the current psychotropics carefully including drug interactions. Risk benefit ratio favors no change other than as noted in my dictated progress note. Diagnosis: Problems: (1) Breakthrough seizure (2) Dementia with behavioral disturbance (3) Anxiety disorder (4) Dementia in Alzheimer's disease with delusions (5) Dementia in Alzheimer's disease with depression (6) Dementia, vascular, with delusions (7) Dementia, vascular, with depression (8) Impulse control disorder NAKIA KO MD Jun 10, 2017 20:59
--- NOTE | 2017-06-10 22:20 | PN ---
DATE: 06/09/2017 This late entry 06/09/2017 covers elements not covered in my initial note 06/09/2017. Met with the patient in the evening of 06/09/2017. The patient had been increasingly unsteady gait and is at fall risk. We will reduce the Depakote from 250 b.i.d., 750 at bedtime, to 125 b.i.d., continue 750 at bedtime. Slept 7-1/4 hours, agitated in the evening, intrusive with patient and her daughter who was visiting, taken to the hallway, received Ativan, BuSpar, fell in the [place] at 4:45. Dr. Oneil checked x-ray, elbow was unremarkable and hip was unremarkable. REVIEW OF SYSTEMS: No CV, , pulmonary, eye, ENT system symptoms on review. Reliability poor. MENTAL STATUS EXAM: Oriented to herself. Insight, judgment, recent and remote memory, attention, concentration, fund of knowledge poor, consistent with her diagnosis. IMPRESSION: Major neurocognitive disorder, Alzheimer, vascular with depression, delusion, behavioral disturbance. Rest unchanged. PLAN: Adjustments as above. Rest unchanged from initial note. MAN Leandro KO MD DR: LUCRECIA/luz JOB#: [id number] / [id number]
[2017-06-11] MEDS: LORazepam 0.5 MG TABLET PO PRN (03:17)
[2017-06-11 07:39] VITALS: BP 136/72
[2017-06-11] MEDS: LACTOBACILLUS RHAMNOSUS GG 1 CAPSULE. PO SCH ×2 (08:39→19:34)
[2017-06-11] MEDS: POTASSIUM CHLORIDE 20 MEQ TABLET.ER. PO SCH (08:39)
[2017-06-11] MEDS: ASPIRIN 81 MG TAB.CHEW PO SCH (08:39)
[2017-06-11] MEDS: SERTRALINE 100 MG TABLET. PO SCH (08:39)
[2017-06-11] MEDS: SENNOSIDES/DOCUSATE 8.6/50MG TABLET. PO SCH ×2 (08:39→19:34)
[2017-06-11] MEDS: DIVALPROEX 125 MG CAP.SPRINK PO SCH ×3 (08:39→19:35)
[2017-06-11] MEDS: CYANOCOBALAMIN (VITAMIN B-12) 250 MCG TABLET PO SCH (08:39)
[2017-06-11] MEDS: busPIRone 15 MG TABLET. PO SCH ×3 (08:40→16:52)
[2017-06-11] MEDS: PHENYTOIN SODIUM EXTENDED 100 MG CAPSULE PO SCH ×2 (08:40→19:34)
[2017-06-11 09:25] LABS: PHENY 16.7 mcg/mL (10.0-20.0)
[2017-06-11] MEDS: LORazepam 0.5 MG TABLET PO SCH (11:48)
[2017-06-11 16:09] VITALS: BP 120/53
[2017-06-11] MEDS: MIRTAZAPINE 15 MG TABLET PO SCH (19:34)
--- NOTE | 2017-06-11 20:58 | PDOC ---
Exam Note: Dane Note: Please also refer to the separate dictated note~for this date of service dictated separately.~Patient seen individually. Discussed the patient with Nursing staff reviewed the chart.~Reviewed interim history and current functioning. Reviewed vital signs,~Labs/ Radiology~and current medications noted below. Continue current treatment with the changes noted in the dictated addendum note Assessment: Vital Signs: Vital Signs Date Time Temp Pulse Resp B/P (MAP) Pulse Ox O2 Delivery O2 Flow Rate FiO2 06/11/17 16:09 97.7 67 16 120/53 (75) 97 Room Air I&O Intake and Output 06/11/17 07:00 Intake Total 770 ml Balance 770 ml Intake Oral 770 ml # Voids 1 # Bowel Movements 1 Labs: Laboratory Tests Test 06/11/17 08:57 Phenytoin (Dilantin) Level 16.7 mcg/mL (10.0-20.0) Phenytoin Last Dose Date 06/10/17 Phenytoin Last Dose Time 2100 Current Medications: Meds: Current Medications Diphtheria/ Tetanus/Acell Pertussis (Boostrix) 0.5 ml ONCE ONCE VAX IM Last administered on 05/01/17at 22:36; Start 05/01/17 at 19:15; Stop 05/01/17 at 19:16 ; Status DC Lorazepam (Ativan) 2 mg 1X ONCE IM Last administered on 05/01/17at 19:45; Start 05/01/17 at 19:45; Stop 05/01/17 at 19:46; Status DC Diphenhydramine HCl (Benadryl) 50 mg 1X ONCE IM Last administered on at 19:45; Start 05/01/17 at 19:45; Stop 05/01/17 at 19:46; Status DC Diphenhydramine HCl (Benadryl) 50 mg STK-MED ONCE .ROUTE ; Start 05/01/17 at 19: 36; Stop 05/01/17 at 19:37; Status DC Lorazepam (Ativan) 1 mg STK-MED ONCE .ROUTE ; Start 05/01/17 at 19:38; Stop at 19:39; Status DC Midazolam HCl (Versed) 2 mg 1X ONCE IV ; Start 05/01/17 at 20:30; Stop at 20:31; Status DC Midazolam HCl (Versed) 5 mg STK-MED ONCE .ROUTE ; Start 05/01/17 at 20:25; Stop 05/01/17 at 20:26; Status DC Midazolam HCl (Versed) 5 mg 1X ONCE NS Last administered on 05/01/17at 20:40; Start 05/01/17 at 21:00; Stop 05/01/17 at 21:01; Status DC Ceftriaxone Sodium (Rocephin Im) 1 gm 1X ONCE IM Last administered on at 22:36; Start 05/01/17 at 21:15; Stop 05/01/17 at 21:16; Status DC Enoxaparin Sodium (Lovenox 60mg Syringe) 50 mg 1X ONCE SQ ; Start 05/01/17 at 21:45; Stop 05/01/17 at 21:45; Status DC Enoxaparin Sodium (Lovenox) 55 mg BID SQ ; Start 05/02/17 at 09:00; Stop at 09:00; Status DC Enoxaparin Sodium (Lovenox 60mg Syringe) 55 mg 1X ONCE SQ Last administered on 05/01/17at 22:35; Start 05/01/17 at 21:45; Stop 05/01/17 at 21:46; Status DC Iohexol (Omnipaque 300 Mg/ml) 75 ml 1X ONCE IV Last administered on 05/01/17at 22:11; Start 05/01/17 at 22:00; Stop 05/01/17 at 22:01; Status DC Midazolam HCl (Versed) 5 mg 1X ONCE IV ; Start 05/01/17 at 22:15; Stop at 22:18; Status DC Midazolam HCl (Versed) 1 mg 1X ONCE IV Last administered on 05/01/17at 22:30; Start 05/01/17 at 23:00; Stop 05/01/17 at 23:02; Status DC Cephalexin HCl (Keflex) 500 mg TID PO Last administered on 05/03/17at 20:27; Start 05/02/17 at 09:00; Stop 05/03/17 at 22:41; Status DC Alprazolam (Xanax) 0.25 mg QID PO Last administered on 05/02/17at 17:32; Start 05/02/17 at 09:00; Stop 05/02/17 at 19:27; Status DC Divalproex Sodium (Depakote Sprinkles) 125 mg BID92 PO Last administered on 05/11 14:05; Start 05/02/17 at 09:00; Stop 05/11/17 at 18:42; Status DC Divalproex Sodium (Depakote Sprinkles) 500 mg QHS PO Last administered on at 19:41; Start 05/02/17 at 21:00; Stop 05/07/17 at 18:37; Status DC Lorazepam (Ativan) 0.5 mg PRN Q4HRS PRN PO ANXIETY / AGITATION Last administered on 06/11/17 03:17; Start 05/02/17 at 01:00 Lorazepam (Ativan Intensol) 0.5 mg PRN Q4HRS PRN PO ANXIETY / AGITATION Last administered on 06/09/17 16:46; Start 05/02/17 at 01:00 Olanzapine (ZyPREXA ZYDIS) 5 mg QHS PO Last administered on 05/07/17at 20:07; Start 05/02/17 at 21:00; Stop 05/08/17 at 19:10; Status DC Sertraline HCl (Zoloft) 100 mg DAILY PO Last administered on 06/11/17 08:39; Start 05/02/17 at 09:00 Levofloxacin (Levaquin) 500 mg DAILY06 PO Last administered on 05/02/17at 08:53 ; Start 05/02/17 at 07:30; Stop 05/02/17 at 10:36; Status DC Lactobacillus Rhamnosus (Culturelle) 1 cap BID PO Last administered on at 19:34; Start 05/02/17 at 09:00 Levofloxacin (Levaquin) 250 mg DAILY06 PO Last administered on 05/06/17at 07:45 ; Start 05/03/17 at 06:00; Stop 05/06/17 at 18:15; Status DC Alprazolam (Xanax) 0.25 mg TID PO Last administered on 05/06/17at 14:25; Start 05/02/17 at 21:00; Stop 05/06/17 at 20:59; Status DC Alprazolam (Xanax) 0.25 mg BID PO Last administered on 05/09/17 19:50; Start at 21:00; Stop 05/10/17 at 08:59; Status DC Alprazolam (Xanax) 0.25 mg DAILY PO Last administered on 05/13/17 08:21; Start 05/10/17 at 09:00; Stop 05/14/17 at 08:59; Status DC Mirtazapine (Remeron) 7.5 mg QHS PO Last administered on 05/02/17 19:59; Start 05/02/17 at 21:00; Stop 05/03/17 at 19:31; Status DC Acetaminophen (Tylenol) 650 mg PRN Q6HRS PRN PO PAIN; Start 05/02/17 at 19:30 Aspirin (Children'S Aspirin) 81 mg DAILY PO Last administered on 06/11/17 08:39 ; Start 05/03/17 at 09:00 Cyanocobalamin (Vitamin B-12) 250 mcg DAILY PO Last administered on 06/11/17 08 :39; Start 05/03/17 at 09:00 Al Hydroxide/Mg Hydroxide (Mylanta Plus Xs) 15 ml PRN AFTMEALHC PRN PO DYSPEPSIA; Start 05/02/17 at 19:30 Multi-Ingredient Ointment (Analgesic Zuni) 1 beck PRN QID PRN TP MUSCLE PAIN; Start 05/02/17 at 19:30 Phenytoin Sodium (Dilantin) 100 mg BID PO Last administered on 06/11/17 19:34; Start 05/02/17 at 21:00 Senna/Docusate Sodium (Senna Plus) 1 tab BID PO Last administered on 06/11/17 19:34; Start 05/02/17 at 21:00 Magnesium Hydroxide (Milk Of Magnesia) 2,400 mg PRN QHS PRN PO CONSTIPATION Last administered on 05/20/17 11:56; Start 05/02/17 at 19:45 Potassium Chloride (Klor-Con) 20 meq DAILYWBKFT PO Last administered on 08:39; Start 05/03/17 at 08:00 Neomycin/ Polymyxin/ Bacitracin (Triple Antibiotic Ointment) 1 pkt BID TP Last administered on 3/1/18at 08:51; Start 05/03/17 at 21:00; Stop 05/08/17 at 20:59; Status DC Mirtazapine (Remeron) 15 mg QHS PO Last administered on 06/11/17 19:34; Start 05/03/17 at 21:00 Trazodone HCl (Desyrel) 50 mg PRN QHS PRN PO SLEEP Last administered on 01:56; Start 05/03/17 at 19:30; Stop 05/16/17 at 18:59; Status DC Alprazolam (Xanax) 0.25 mg 1X ONCE PO Last administered on 05/05/17at 09:36; Start 05/05/17 at 10:00; Stop 05/05/17 at 10:01; Status DC Buspirone HCl (Buspar) 5 mg TID@0900,1300,1700 PO Last administered on at 16:43; Start 05/06/17 at 09:00; Stop 05/06/17 at 18:23; Status DC Buspirone HCl (Buspar) 5 mg BID@1300,1700 PO Last administered on 05/09/17 14: 08; Start 05/07/17 at 13:00; Stop 05/09/17 at 18:34; Status DC Buspirone HCl (Buspar) 10 mg DAILY PO Last administered on 05/08/17at 08:49; Start 05/07/17 at 09:00; Stop 05/08/17 at 19:10; Status DC Divalproex Sodium (Depakote Sprinkles) 750 mg QHS PO Last administered on 19:35; Start 05/07/17 at 21:00 Olanzapine (ZyPREXA ZYDIS) 2.5 mg QHS PO Last administered on 05/09/17 19:48; Start 05/08/17 at 21:00; Stop 05/09/17 at 21:00; Status DC Divalproex Sodium (Depakote Sprinkles) 250 mg [id number] PO Last administered on at 08:11; Start 05/12/17 at 09:00; Stop 06/05/17 at 11:11; Status DC Buspirone HCl (Buspar) 5 mg BID@0900,1300 PO Last administered on 05/18/17at 13: 00; Start 05/15/17 at 13:00; Stop 05/18/17 at 15:50; Status DC Trazodone HCl (Desyrel) 50 mg PRN QHS PRN PO INSOMNIA, MAY REPEAT X1 Last administered on 06/10/17at 19:15; Start 05/16/17 at 19:00 Buspirone HCl (Buspar) 5 mg TID PO Last administered on 05/19/17at 13:50; Start 05/18/17 at 21:00; Stop 05/19/17 at 18:46; Status DC Buspirone HCl (Buspar) 5 mg [id number] PO Last administered on 05/21/17at 12:43; Start 05/19/17 at 21:00; Stop 05/21/17 at 14:16; Status DC Buspirone HCl (Buspar) 5 mg BID@0900,1700 PO Last administered on 05/24/17at 07: 52; Start 05/21/17 at 17:00; Stop 05/24/17 at 16:26; Status DC Buspirone HCl (Buspar) 10 mg DAILY@1300 PO Last administered on 05/24/17at 13:00 ; Start 05/22/17 at 13:00; Stop 05/24/17 at 16:26; Status DC Buspirone HCl (Buspar) 10 mg DAILY@0900,1300,1700 PO Last administered on at 17:20; Start 05/24/17 at 17:00; Stop 05/27/17 at 17:51; Status DC Buspirone HCl (Buspar) 10 mg BID@1300,1700 PO Last administered on 06/01/17at 17 :27; Start 05/28/17 at 13:00; Stop 06/02/17 at 13:00; Status DC Buspirone HCl (Buspar) 15 mg DAILY PO Last administered on 06/01/17at 08:44; Start 05/28/17 at 09:00; Stop 06/01/17 at 21:57; Status DC Lorazepam (Ativan) 0.5 mg DAILYWLUN PO Last administered on 06/11/17at 11:48; Start 06/01/17 at 12:00 Buspirone HCl (Buspar) 15 mg BID@0900,1300 PO Last administered on 06/05/17at 08 :11; Start 06/02/17 at 09:00; Stop 06/05/17 at 11:11; Status DC Buspirone HCl (Buspar) 10 mg DAILY@1700 PO Last administered on 06/04/17at 16:56 ; Start 06/02/17 at 17:00; Stop 06/05/17 at 11:11; Status DC Buspirone HCl (Buspar) 15 mg TID@0900,1300,1700 PO Last administered on at 16:52; Start 06/05/17 at 13:00 Divalproex Sodium (Depakote Sprinkles) 375 mg BID92 PO Last administered on at 14:20; Start 06/05/17 at 14:00; Stop 06/05/17 at 18:30; Status DC Divalproex Sodium (Depakote Sprinkles) 250 mg BID92 PO Last administered on 06/09at 12:39; Start 06/06/17 at 09:00; Stop 06/09/17 at 18:42; Status DC Divalproex Sodium (Depakote Sprinkles) 125 mg BID92 PO Last administered on 06/11at 13:57; Start 06/10/17 at 09:00 Active Scripts Active Reported Klor-Con (Potassium Chloride) 20 Meq Packet 20 Meq PO DAILY Xanax (Alprazolam) 0.25 Mg Tablet 0.25 Mg PO QID Zoloft (Sertraline Hcl) 100 Mg Tablet 100 Mg PO DAILY Lorazepam Intensol (Lorazepam) 2 Mg/1 Ml Oral.conc 0.5 Mg PO PRN Q4HRS PRN Senna S Tablet (Sennosides/Docusate Sodium) 1 Each Tablet 1 Tab PO BID Depakote Sprinkle (Divalproex Sodium) 125 Mg Cap.sprink 500 Mg PO QHS Depakote Sprinkle (Divalproex Sodium) 125 Mg Cap.sprink 125 Mg PO BID92 Tylenol (Acetaminophen) 325 Mg Tablet 650 Mg PO PRN Q6HRS PRN Olanzapine Odt (Olanzapine) 5 Mg Tab.rapdis 5 Mg PO QHS Analgesic Zuni (Methyl Salicylate/Menthol) 28 Gm Oint...g. 1 Beck TP PRN QID PRN Maalox Maximum Strength Susp (Mag Hydrox/Al Hydrox/Simeth) 355 Ml Oral.susp 15 Ml PO PRN AFTMEALHC PRN Milk Of Magnesia (Magnesium Hydroxide) 2,400 Mg/10 Ml Oral.susp 2,400 Mg PO PRN QHS PRN Vitamin B-12 (Cyanocobalamin (Vitamin B-12)) 1,000 Mcg Tablet 250 Mcg PO DAILY Lorazepam 0.5 Mg Tablet 0.5 Mg PO PRN Q4HRS PRN Dilantin (Phenytoin Sodium Extended) 100 Mg Capsule 100 Mg PO BID Aspirin 81 Mg Tab.chew 81 Mg PO DAILY I have reviewed the current psychotropics carefully including drug interactions. Risk benefit ratio favors no change other than as noted in my dictated progress note. Diagnosis: Problems: (1) Breakthrough seizure (2) Dementia with behavioral disturbance (3) Anxiety disorder (4) Dementia in Alzheimer's disease with delusions (5) Dementia in Alzheimer's disease with depression (6) Dementia, vascular, with delusions (7) Dementia, vascular, with depression (8) Impulse control disorder NAKIA KO MD Jun 11, 2017 20:58
--- NOTE | 2017-06-11 21:10 | PN ---
DATE: 06/10/2017 This is a late entry, 06/10/2017, covers the elements not covered in my initial note, 06/10/2017. SUBJECTIVE: I met with the patient evening of 06/10/2017. The patient was quite combative with cares the previous night, checking doors, anxious in the morning, got her a.m. meds, early more anxious around 1 p.m. We will check a Dilantin level as well. REVIEW OF SYSTEMS: No CV, , pulmonary, eye, ENT system symptoms on review. Reliability poor. MENTAL STATUS EXAM: Oriented to herself. Insight, judgment, recent and remote memory, attention, concentration, fund of knowledge poor, consistent with her diagnosis as mentioned in my initial note. IMPRESSION: Major neurocognitive disorder, Alzheimer, vascular with delusion, depression, behavioral disturbance. Rest unchanged. PLAN: Continue psychotropics as mentioned in my initial note. Check a Dilantin level. NAKIA KO MD DR: LUCRECIA/luz JOB#: [id number] / [id number]
[2017-06-12 05:42] VITALS: BP 100/70
[2017-06-12] MEDS: ASPIRIN 81 MG TAB.CHEW PO SCH (09:19)
[2017-06-12] MEDS: POTASSIUM CHLORIDE 20 MEQ TABLET.ER. PO SCH (09:19)
[2017-06-12] MEDS: SENNOSIDES/DOCUSATE 8.6/50MG TABLET. PO SCH ×2 (09:20→19:44)
[2017-06-12] MEDS: LACTOBACILLUS RHAMNOSUS GG 1 CAPSULE. PO SCH ×2 (09:20→19:44)
[2017-06-12] MEDS: PHENYTOIN SODIUM EXTENDED 100 MG CAPSULE PO SCH ×2 (09:20→19:44)
[2017-06-12] MEDS: CYANOCOBALAMIN (VITAMIN B-12) 250 MCG TABLET PO SCH (09:20)
[2017-06-12] MEDS: DIVALPROEX 125 MG CAP.SPRINK PO SCH ×3 (09:21→19:45)
[2017-06-12] MEDS: busPIRone 15 MG TABLET. PO SCH ×3 (09:21→17:09)
[2017-06-12] MEDS: SERTRALINE 100 MG TABLET. PO SCH (09:21)
[2017-06-12 12:12] LABS: BILIRUBIN,URINE NEG (NEG); CLARITY,URINE HAZY; COLOR,URINE AMBER; GLUCOSE,URINE NEG (NEG); NITRITE,URINE NEG (NEG); RBC,URINE 0 /HPF (0-2); UROBILINOGEN,URINE 1 mg/dL (0.2 mg/dL)
[2017-06-12 12:13] LABS: AMORPHOUS SEDIMENT,UR PRESENT /HPF; BACTERIA,URINE FEW /HPF (0-FEW); SQUAMOUS EPITHELIAL CELL,UR FEW /LPF
[2017-06-12] MEDS: LORazepam 0.5 MG TABLET PO SCH (12:13)
[2017-06-12 16:26] VITALS: BP 132/74
[2017-06-12] MEDS: MIRTAZAPINE 15 MG TABLET PO SCH (19:44)
--- NOTE | 2017-06-12 20:57 | PDOC ---
Exam Note: Dane Note: Please also refer to the separate dictated note~for this date of service dictated separately.~Patient seen individually. Discussed the patient with Nursing staff reviewed the chart.~Reviewed interim history and current functioning. Reviewed vital signs,~Labs/ Radiology~and current medications noted below. Continue current treatment with the changes noted in the dictated addendum note Assessment: Vital Signs: Vital Signs Date Time Temp Pulse Resp B/P (MAP) Pulse Ox O2 Delivery O2 Flow Rate FiO2 06/12/17 16:26 94.4 78 16 132/74 (93) 98 06/11/17 16:09 Room Air I&O Intake and Output 06/12/17 07:00 Intake Total 840 ml Balance 840 ml Intake Oral 840 ml # Voids 1 Labs: Laboratory Tests Test 06/12/17 11:30 Urine Collection Type Unknown Urine Color Lupe Urine Clarity Hazy Urine pH 7.5 Urine Specific [place] 1.015 Urine Protein 30 mg/dl (NEG-TRACE) Urine Glucose (UA) Neg mg/dL (NEG) Urine Ketones (Stick) Trace mg/dL (NEG) Urine Blood Neg (NEG) Urine Nitrite Neg (NEG) Urine Bilirubin Neg (NEG) Urine Urobilinogen Dipstick 1 mg/dL (0.2 mg/dL) Urine Leukocyte Esterase Neg (NEG) Urine RBC 0 /HPF (0-2) Urine WBC 1-4 /HPF (0-4) Urine Squamous Epithelial Cells Few /LPF Urine Amorphous Sediment Present /HPF Urine Bacteria Few /HPF (0-FEW) Urine Mucus Slight /LPF Current Medications: Meds: Current Medications Diphtheria/ Tetanus/Acell Pertussis (Boostrix) 0.5 ml ONCE ONCE VAX IM Last administered on 05/01/17at 22:36; Start 05/01/17 at 19:15; Stop 05/01/17 at 19:16 ; Status DC Lorazepam (Ativan) 2 mg 1X ONCE IM Last administered on 05/01/17at 19:45; Start 05/01/17 at 19:45; Stop 05/01/17 at 19:46; Status DC Diphenhydramine HCl (Benadryl) 50 mg 1X ONCE IM Last administered on at 19:45; Start 05/01/17 at 19:45; Stop 05/01/17 at 19:46; Status DC Diphenhydramine HCl (Benadryl) 50 mg STK-MED ONCE .ROUTE ; Start 05/01/17 at 19: 36; Stop 05/01/17 at 19:37; Status DC Lorazepam (Ativan) 1 mg STK-MED ONCE .ROUTE ; Start 05/01/17 at 19:38; Stop at 19:39; Status DC Midazolam HCl (Versed) 2 mg 1X ONCE IV ; Start 05/01/17 at 20:30; Stop at 20:31; Status DC Midazolam HCl (Versed) 5 mg STK-MED ONCE .ROUTE ; Start 05/01/17 at 20:25; Stop 05/01/17 at 20:26; Status DC Midazolam HCl (Versed) 5 mg 1X ONCE NS Last administered on 05/01/17at 20:40; Start 05/01/17 at 21:00; Stop 05/01/17 at 21:01; Status DC Ceftriaxone Sodium (Rocephin Im) 1 gm 1X ONCE IM Last administered on at 22:36; Start 05/01/17 at 21:15; Stop 05/01/17 at 21:16; Status DC Enoxaparin Sodium (Lovenox 60mg Syringe) 50 mg 1X ONCE SQ ; Start 05/01/17 at 21:45; Stop 05/01/17 at 21:45; Status DC Enoxaparin Sodium (Lovenox) 55 mg BID SQ ; Start 05/02/17 at 09:00; Stop at 09:00; Status DC Enoxaparin Sodium (Lovenox 60mg Syringe) 55 mg 1X ONCE SQ Last administered on 05/01/17at 22:35; Start 05/01/17 at 21:45; Stop 05/01/17 at 21:46; Status DC Iohexol (Omnipaque 300 Mg/ml) 75 ml 1X ONCE IV Last administered on 05/01/17at 22:11; Start 05/01/17 at 22:00; Stop 05/01/17 at 22:01; Status DC Midazolam HCl (Versed) 5 mg 1X ONCE IV ; Start 05/01/17 at 22:15; Stop at 22:18; Status DC Midazolam HCl (Versed) 1 mg 1X ONCE IV Last administered on 05/01/17 22:30; Start 05/01/17 at 23:00; Stop 05/01/17 at 23:02; Status DC Cephalexin HCl (Keflex) 500 mg TID PO Last administered on 05/03/17 20:27; Start 05/02/17 at 09:00; Stop 05/03/17 at 22:41; Status DC Alprazolam (Xanax) 0.25 mg QID PO Last administered on 05/02/17at 17:32; Start 05/02/17 at 09:00; Stop 05/02/17 at 19:27; Status DC Divalproex Sodium (Depakote Sprinkles) 125 mg [id number] PO Last administered on 05/11 14:05; Start 05/02/17 at 09:00; Stop 05/11/17 at 18:42; Status DC Divalproex Sodium (Depakote Sprinkles) 500 mg QHS PO Last administered on 19:41; Start 05/02/17 at 21:00; Stop 05/07/17 at 18:37; Status DC Lorazepam (Ativan) 0.5 mg PRN Q4HRS PRN PO ANXIETY / AGITATION Last administered on 06/11/17 03:17; Start 05/02/17 at 01:00 Lorazepam (Ativan Intensol) 0.5 mg PRN Q4HRS PRN PO ANXIETY / AGITATION Last administered on 06/09/17 16:46; Start 05/02/17 at 01:00 Olanzapine (ZyPREXA ZYDIS) 5 mg QHS PO Last administered on 05/07/17 20:07; Start 05/02/17 at 21:00; Stop 05/08/17 at 19:10; Status DC Sertraline HCl (Zoloft) 100 mg DAILY PO Last administered on 06/12/17 09:21; Start 05/02/17 at 09:00 Levofloxacin (Levaquin) 500 mg DAILY06 PO Last administered on 05/02/17at 08:53 ; Start 05/02/17 at 07:30; Stop 05/02/17 at 10:36; Status DC Lactobacillus Rhamnosus (Culturelle) 1 cap BID PO Last administered on 19:44; Start 05/02/17 at 09:00 Levofloxacin (Levaquin) 250 mg DAILY06 PO Last administered on 05/06/17 07:45 ; Start 05/03/17 at 06:00; Stop 05/06/17 at 18:15; Status DC Alprazolam (Xanax) 0.25 mg TID PO Last administered on 05/06/17at 14:25; Start 05/02/17 at 21:00; Stop 05/06/17 at 20:59; Status DC Alprazolam (Xanax) 0.25 mg BID PO Last administered on 05/09/17 19:50; Start at 21:00; Stop 05/10/17 at 08:59; Status DC Alprazolam (Xanax) 0.25 mg DAILY PO Last administered on 05/13/17 08:21; Start 05/10/17 at 09:00; Stop 05/14/17 at 08:59; Status DC Mirtazapine (Remeron) 7.5 mg QHS PO Last administered on 05/02/17at 19:59; Start 05/02/17 at 21:00; Stop 05/03/17 at 19:31; Status DC Acetaminophen (Tylenol) 650 mg PRN Q6HRS PRN PO PAIN; Start 05/02/17 at 19:30 Aspirin (Children'S Aspirin) 81 mg DAILY PO Last administered on 06/12/17 09:19 ; Start 05/03/17 at 09:00 Cyanocobalamin (Vitamin B-12) 250 mcg DAILY PO Last administered on 06/12/17 09 :20; Start 05/03/17 at 09:00 Al Hydroxide/Mg Hydroxide (Mylanta Plus Xs) 15 ml PRN AFTMEALHC PRN PO DYSPEPSIA; Start 05/02/17 at 19:30 Multi-Ingredient Ointment (Analgesic [place]) 1 beck PRN QID PRN TP MUSCLE PAIN; Start 05/02/17 at 19:30 Phenytoin Sodium (Dilantin) 100 mg BID PO Last administered on 06/12/17 19:44; Start 05/02/17 at 21:00 Senna/Docusate Sodium (Senna Plus) 1 tab BID PO Last administered on 06/12/17 19:44; Start 05/02/17 at 21:00 Magnesium Hydroxide (Milk Of Magnesia) 2,400 mg PRN QHS PRN PO CONSTIPATION Last administered on 05/20/17 11:56; Start 05/02/17 at 19:45 Potassium Chloride (Klor-Con) 20 meq DAILYWBKFT PO Last administered on 09:19; Start 05/03/17 at 08:00 Neomycin/ Polymyxin/ Bacitracin (Triple Antibiotic Ointment) 1 pkt BID TP Last administered on 05/08/17 08:51; Start 05/03/17 at 21:00; Stop 05/08/17 at 20:59; Status DC Mirtazapine (Remeron) 15 mg QHS PO Last administered on 06/12/17 19:44; Start 05/03/17 at 21:00 Trazodone HCl (Desyrel) 50 mg PRN QHS PRN PO SLEEP Last administered on 01:56; Start 05/03/17 at 19:30; Stop 05/16/17 at 18:59; Status DC Alprazolam (Xanax) 0.25 mg 1X ONCE PO Last administered on 05/05/17 09:36; Start 05/05/17 at 10:00; Stop 05/05/17 at 10:01; Status DC Buspirone HCl (Buspar) 5 mg TID@0900,1300,1700 PO Last administered on at 16:43; Start 05/06/17 at 09:00; Stop 05/06/17 at 18:23; Status DC Buspirone HCl (Buspar) 5 mg BID@1300,1700 PO Last administered on 05/09/17 14: 08; Start 05/07/17 at 13:00; Stop 05/09/17 at 18:34; Status DC Buspirone HCl (Buspar) 10 mg DAILY PO Last administered on 05/08/17 08:49; Start 05/07/17 at 09:00; Stop 05/08/17 at 19:10; Status DC Divalproex Sodium (Depakote Sprinkles) 750 mg QHS PO Last administered on 19:45; Start 05/07/17 at 21:00 Olanzapine (ZyPREXA ZYDIS) 2.5 mg QHS PO Last administered on 05/09/17 19:48; Start 05/08/17 at 21:00; Stop 05/09/17 at 21:00; Status DC Divalproex Sodium (Depakote Sprinkles) 250 mg [id number] PO Last administered on at 08:11; Start 05/12/17 at 09:00; Stop 06/05/17 at 11:11; Status DC Buspirone HCl (Buspar) 5 mg BID@0900,1300 PO Last administered on 05/18/17at 13: 00; Start 05/15/17 at 13:00; Stop 05/18/17 at 15:50; Status DC Trazodone HCl (Desyrel) 50 mg PRN QHS PRN PO INSOMNIA, MAY REPEAT X1 Last administered on 06/10/17at 19:15; Start 05/16/17 at 19:00 Buspirone HCl (Buspar) 5 mg TID PO Last administered on 05/19/17at 13:50; Start 05/18/17 at 21:00; Stop 05/19/17 at 18:46; Status DC Buspirone HCl (Buspar) 5 mg [id number] PO Last administered on 05/21/17at 12:43; Start 05/19/17 at 21:00; Stop 05/21/17 at 14:16; Status DC Buspirone HCl (Buspar) 5 mg BID@0900,1700 PO Last administered on 05/24/17at 07: 52; Start 05/21/17 at 17:00; Stop 05/24/17 at 16:26; Status DC Buspirone HCl (Buspar) 10 mg DAILY@1300 PO Last administered on 05/24/17at 13:00 ; Start 05/22/17 at 13:00; Stop 05/24/17 at 16:26; Status DC Buspirone HCl (Buspar) 10 mg DAILY@0900,1300,1700 PO Last administered on at 17:20; Start 05/24/17 at 17:00; Stop 05/27/17 at 17:51; Status DC Buspirone HCl (Buspar) 10 mg BID@1300,1700 PO Last administered on 06/01/17 17 :27; Start 05/28/17 at 13:00; Stop 06/02/17 at 13:00; Status DC Buspirone HCl (Buspar) 15 mg DAILY PO Last administered on 06/01/17at 08:44; Start 05/28/17 at 09:00; Stop 06/01/17 at 21:57; Status DC Lorazepam (Ativan) 0.5 mg DAILYWLUN PO Last administered on 06/12/17at 12:13; Start 06/01/17 at 12:00 Buspirone HCl (Buspar) 15 mg BID@0900,1300 PO Last administered on 06/05/17at 08 :11; Start 06/02/17 at 09:00; Stop 06/05/17 at 11:11; Status DC Buspirone HCl (Buspar) 10 mg DAILY@1700 PO Last administered on 06/04/17at 16:56 ; Start 06/02/17 at 17:00; Stop 06/05/17 at 11:11; Status DC Buspirone HCl (Buspar) 15 mg TID@0900,1300,1700 PO Last administered on 17:09; Start 06/05/17 at 13:00; Stop 06/12/17 at 17:24; Status DC Divalproex Sodium (Depakote Sprinkles) 375 mg BID92 PO Last administered on at 14:20; Start 06/05/17 at 14:00; Stop 06/05/17 at 18:30; Status DC Divalproex Sodium (Depakote Sprinkles) 250 mg [id number] PO Last administered on 06/09at 12:39; Start 06/06/17 at 09:00; Stop 06/09/17 at 18:42; Status DC Divalproex Sodium (Depakote Sprinkles) 125 mg [id number] PO Last administered on 06/12 13:36; Start 06/10/17 at 09:00 Buspirone HCl (Buspar) 15 mg 1300 PO ; Start 06/13/17 at 13:00 Buspirone HCl (Buspar) 20 mg BID@0900,1700 PO ; Start 06/13/17 at 09:00 Active Scripts Active Reported Klor-Con (Potassium Chloride) 20 Meq Packet 20 Meq PO DAILY Xanax (Alprazolam) 0.25 Mg Tablet 0.25 Mg PO QID Zoloft (Sertraline Hcl) 100 Mg Tablet 100 Mg PO DAILY Lorazepam Intensol (Lorazepam) 2 Mg/1 Ml Oral.conc 0.5 Mg PO PRN Q4HRS PRN Senna S Tablet (Sennosides/Docusate Sodium) 1 Each Tablet 1 Tab PO BID Depakote Sprinkle (Divalproex Sodium) 125 Mg Cap.sprink 500 Mg PO QHS Depakote Sprinkle (Divalproex Sodium) 125 Mg Cap.sprink 125 Mg PO BID92 Tylenol (Acetaminophen) 325 Mg Tablet 650 Mg PO PRN Q6HRS PRN Olanzapine Odt (Olanzapine) 5 Mg Tab.rapdis 5 Mg PO QHS Analgesic [place] (Methyl Salicylate/Menthol) 28 Gm Oint...g. 1 Beck TP PRN QID PRN Maalox Maximum Strength Susp (Mag Hydrox/Al Hydrox/Simeth) 355 Ml Oral.susp 15 Ml PO PRN AFTMEALHC PRN Milk Of Magnesia (Magnesium Hydroxide) 2,400 Mg/10 Ml Oral.susp 2,400 Mg PO PRN QHS PRN Vitamin B-12 (Cyanocobalamin (Vitamin B-12)) 1,000 Mcg Tablet 250 Mcg PO DAILY Lorazepam 0.5 Mg Tablet 0.5 Mg PO PRN Q4HRS PRN Dilantin (Phenytoin Sodium Extended) 100 Mg Capsule 100 Mg PO BID Aspirin 81 Mg Tab.chew 81 Mg PO DAILY I have reviewed the current psychotropics carefully including drug interactions. Risk benefit ratio favors no change other than as noted in my dictated progress note. Diagnosis: Problems: (1) Breakthrough seizure (2) Dementia with behavioral disturbance (3) Anxiety disorder (4) Dementia in Alzheimer's disease with delusions (5) Dementia in Alzheimer's disease with depression (6) Dementia, vascular, with delusions (7) Dementia, vascular, with depression (8) Impulse control disorder NAKIA KO MD Jun 12, 2017 20:57
[2017-06-13] MEDS: traZODone 50 MG TABLET. PO PRN ×2 (01:50→20:03)
[2017-06-13] MEDS: LORazepam INTENSOL 2 MG/ML BOTTLE PO PRN (01:51)
[2017-06-13 06:23] VITALS: BP 125/55
[2017-06-13] MEDS: LACTOBACILLUS RHAMNOSUS GG 1 CAPSULE. PO SCH ×2 (07:55→20:02)
[2017-06-13] MEDS: PHENYTOIN SODIUM EXTENDED 100 MG CAPSULE PO SCH ×2 (07:55→20:02)
[2017-06-13] MEDS: POTASSIUM CHLORIDE 20 MEQ TABLET.ER. PO SCH (07:55)
[2017-06-13] MEDS: SENNOSIDES/DOCUSATE 8.6/50MG TABLET. PO SCH ×2 (07:55→20:03)
[2017-06-13] MEDS: SERTRALINE 100 MG TABLET. PO SCH (07:55)
[2017-06-13] MEDS: DIVALPROEX 125 MG CAP.SPRINK PO SCH ×3 (07:55→20:03)
[2017-06-13] MEDS: CYANOCOBALAMIN (VITAMIN B-12) 250 MCG TABLET PO SCH (07:55)
[2017-06-13] MEDS: ASPIRIN 81 MG TAB.CHEW PO SCH (07:55)
[2017-06-13] MEDS: busPIRone 10 MG TABLET. PO SCH ×2 (07:56→17:26)
[2017-06-13] MEDS: LORazepam 0.5 MG TABLET PO SCH (12:05)
[2017-06-13] MEDS: busPIRone 15 MG TABLET. PO SCH (12:06)
[2017-06-13 15:55] VITALS: BP 134/66
[2017-06-13] MEDS: MIRTAZAPINE 15 MG TABLET PO SCH (20:02)
--- NOTE | 2017-06-13 23:18 | PN ---
DATE: 06/11/2017 PSYCHIATRIC PROGRESS NOTE This is a late entry for 06/11/2017 covers elements not covered in my initial note of 06/11/2017. I met with the patient evening of 06/11/2017. The patient was quite combative in the morning, especially with the lab draw. Then was a little bit calmer, slept for 4-3/4 hours previous evening. Dilantin level was 16.7. She did cooperate with the shower. Gait is unsteady. REVIEW OF SYSTEMS: No CV, , pulmonary, eye, ENT system symptoms on review. Reliability poor. MENTAL STATUS EXAM: Oriented to herself. Insight, judgment, recent and remote memory, attention, concentration, fund of knowledge poor, consistent with her diagnosis mentioned in my initial note. IMPRESSION: Major neurocognitive disorder, Alzheimer, vascular with depression, delusion, behavioral disturbance. PLAN: Continue psychotropics mentioned in my initial note. Adjust further as clinically indicated. NAKIA KO MD DR: [email or web address] JOB#: [id number] / [id number]
--- NOTE | 2017-06-13 23:24 | PDOC ---
Exam Note: Dane Note: Please also refer to the separate dictated note~for this date of service dictated separately.~Patient seen individually. Discussed the patient with Nursing staff reviewed the chart.~Reviewed interim history and current functioning. Reviewed vital signs,~Labs/ Radiology~and current medications noted below. Continue current treatment with the changes noted in the dictated addendum note Assessment: Vital Signs: Vital Signs Date Time Temp Pulse Resp B/P (MAP) Pulse Ox O2 Delivery O2 Flow Rate FiO2 06/13/17 15:55 97.5 83 16 134/66 (88) 94 06/11/17 16:09 Room Air I&O Intake and Output 06/13/17 07:00 Intake Total 720 ml Balance 720 ml Intake Oral 720 ml # Voids 1 # Bowel Movements 1 Current Medications: Meds: Current Medications Diphtheria/ Tetanus/Acell Pertussis (Boostrix) 0.5 ml ONCE ONCE VAX IM Last administered on 05/01/17at 22:36; Start 05/01/17 at 19:15; Stop 05/01/17 at 19:16 ; Status DC Lorazepam (Ativan) 2 mg 1X ONCE IM Last administered on 05/01/17at 19:45; Start 05/01/17 at 19:45; Stop 05/01/17 at 19:46; Status DC Diphenhydramine HCl (Benadryl) 50 mg 1X ONCE IM Last administered on at 19:45; Start 05/01/17 at 19:45; Stop 05/01/17 at 19:46; Status DC Diphenhydramine HCl (Benadryl) 50 mg STK-MED ONCE .ROUTE ; Start 05/01/17 at 19: 36; Stop 05/01/17 at 19:37; Status DC Lorazepam (Ativan) 1 mg STK-MED ONCE .ROUTE ; Start 05/01/17 at 19:38; Stop at 19:39; Status DC Midazolam HCl (Versed) 2 mg 1X ONCE IV ; Start 05/01/17 at 20:30; Stop at 20:31; Status DC Midazolam HCl (Versed) 5 mg STK-MED ONCE .ROUTE ; Start 05/01/17 at 20:25; Stop 05/01/17 at 20:26; Status DC Midazolam HCl (Versed) 5 mg 1X ONCE NS Last administered on 05/01/17at 20:40; Start 05/01/17 at 21:00; Stop 05/01/17 at 21:01; Status DC Ceftriaxone Sodium (Rocephin Im) 1 gm 1X ONCE IM Last administered on at 22:36; Start 05/01/17 at 21:15; Stop 05/01/17 at 21:16; Status DC Enoxaparin Sodium (Lovenox 60mg Syringe) 50 mg 1X ONCE SQ ; Start 05/01/17 at 21:45; Stop 05/01/17 at 21:45; Status DC Enoxaparin Sodium (Lovenox) 55 mg BID SQ ; Start 05/02/17 at 09:00; Stop at 09:00; Status DC Enoxaparin Sodium (Lovenox 60mg Syringe) 55 mg 1X ONCE SQ Last administered on 05/01/17at 22:35; Start 05/01/17 at 21:45; Stop 05/01/17 at 21:46; Status DC Iohexol (Omnipaque 300 Mg/ml) 75 ml 1X ONCE IV Last administered on 05/01/17at 22:11; Start 05/01/17 at 22:00; Stop 05/01/17 at 22:01; Status DC Midazolam HCl (Versed) 5 mg 1X ONCE IV ; Start 05/01/17 at 22:15; Stop at 22:18; Status DC Midazolam HCl (Versed) 1 mg 1X ONCE IV Last administered on 05/01/17at 22:30; Start 05/01/17 at 23:00; Stop 05/01/17 at 23:02; Status DC Cephalexin HCl (Keflex) 500 mg TID PO Last administered on 05/03/17at 20:27; Start 05/02/17 at 09:00; Stop 05/03/17 at 22:41; Status DC Alprazolam (Xanax) 0.25 mg QID PO Last administered on 05/02/17at 17:32; Start 05/02/17 at 09:00; Stop 05/02/17 at 19:27; Status DC Divalproex Sodium (Depakote Sprinkles) 125 mg [id number] PO Last administered on 05/11at 14:05; Start 05/02/17 at 09:00; Stop 05/11/17 at 18:42; Status DC Divalproex Sodium (Depakote Sprinkles) 500 mg QHS PO Last administered on at 19:41; Start 05/02/17 at 21:00; Stop 05/07/17 at 18:37; Status DC Lorazepam (Ativan) 0.5 mg PRN Q4HRS PRN PO ANXIETY / AGITATION Last administered on 06/11/17at 03:17; Start 05/02/17 at 01:00 Lorazepam (Ativan Intensol) 0.5 mg PRN Q4HRS PRN PO ANXIETY / AGITATION Last administered on 06/13/17 01:51; Start 05/02/17 at 01:00 Olanzapine (ZyPREXA ZYDIS) 5 mg QHS PO Last administered on 05/07/17at 20:07; Start 05/02/17 at 21:00; Stop 05/08/17 at 19:10; Status DC Sertraline HCl (Zoloft) 100 mg DAILY PO Last administered on 06/13/17at 07:55; Start 05/02/17 at 09:00 Levofloxacin (Levaquin) 500 mg DAILY06 PO Last administered on 05/02/17at 08:53 ; Start 05/02/17 at 07:30; Stop 05/02/17 at 10:36; Status DC Lactobacillus Rhamnosus (Culturelle) 1 cap BID PO Last administered on at 20:02; Start 05/02/17 at 09:00 Levofloxacin (Levaquin) 250 mg DAILY06 PO Last administered on 05/06/17at 07:45 ; Start 05/03/17 at 06:00; Stop 05/06/17 at 18:15; Status DC Alprazolam (Xanax) 0.25 mg TID PO Last administered on 05/06/17at 14:25; Start 05/02/17 at 21:00; Stop 05/06/17 at 20:59; Status DC Alprazolam (Xanax) 0.25 mg BID PO Last administered on 05/09/17at 19:50; Start at 21:00; Stop 05/10/17 at 08:59; Status DC Alprazolam (Xanax) 0.25 mg DAILY PO Last administered on 05/13/17 08:21; Start 05/10/17 at 09:00; Stop 05/14/17 at 08:59; Status DC Mirtazapine (Remeron) 7.5 mg QHS PO Last administered on 05/02/17at 19:59; Start 05/02/17 at 21:00; Stop 05/03/17 at 19:31; Status DC Acetaminophen (Tylenol) 650 mg PRN Q6HRS PRN PO PAIN; Start 05/02/17 at 19:30 Aspirin (Children'S Aspirin) 81 mg DAILY PO Last administered on 06/13/17at 07:55 ; Start 05/03/17 at 09:00 Cyanocobalamin (Vitamin B-12) 250 mcg DAILY PO Last administered on 06/13/17at 07 :55; Start 05/03/17 at 09:00 Al Hydroxide/Mg Hydroxide (Mylanta Plus Xs) 15 ml PRN AFTMEALHC PRN PO DYSPEPSIA; Start 05/02/17 at 19:30 Multi-Ingredient Ointment (Analgesic [place]) 1 beck PRN QID PRN TP MUSCLE PAIN; Start 05/02/17 at 19:30 Phenytoin Sodium (Dilantin) 100 mg BID PO Last administered on 06/13/17at 20:02; Start 05/02/17 at 21:00 Senna/Docusate Sodium (Senna Plus) 1 tab BID PO Last administered on 06/13/17at 20:03; Start 05/02/17 at 21:00 Magnesium Hydroxide (Milk Of Magnesia) 2,400 mg PRN QHS PRN PO CONSTIPATION Last administered on 05/20/17at 11:56; Start 05/02/17 at 19:45 Potassium Chloride (Klor-Con) 20 meq DAILYWBKFT PO Last administered on at 07:55; Start 05/03/17 at 08:00 Neomycin/ Polymyxin/ Bacitracin (Triple Antibiotic Ointment) 1 pkt BID TP Last administered on 05/08/17at 08:51; Start 05/03/17 at 21:00; Stop 05/08/17 at 20:59; Status DC Mirtazapine (Remeron) 15 mg QHS PO Last administered on 06/13/17 20:02; Start 05/03/17 at 21:00 Trazodone HCl (Desyrel) 50 mg PRN QHS PRN PO SLEEP Last administered on at 01:56; Start 05/03/17 at 19:30; Stop 05/16/17 at 18:59; Status DC Alprazolam (Xanax) 0.25 mg 1X ONCE PO Last administered on 05/05/17at 09:36; Start 05/05/17 at 10:00; Stop 05/05/17 at 10:01; Status DC Buspirone HCl (Buspar) 5 mg TID@0900,1300,1700 PO Last administered on at 16:43; Start 05/06/17 at 09:00; Stop 05/06/17 at 18:23; Status DC Buspirone HCl (Buspar) 5 mg BID@1300,1700 PO Last administered on 05/09/17 14: 08; Start 05/07/17 at 13:00; Stop 05/09/17 at 18:34; Status DC Buspirone HCl (Buspar) 10 mg DAILY PO Last administered on 05/08/17at 08:49; Start 05/07/17 at 09:00; Stop 05/08/17 at 19:10; Status DC Divalproex Sodium (Depakote Sprinkles) 750 mg QHS PO Last administered on 20:03; Start 05/07/17 at 21:00 Olanzapine (ZyPREXA ZYDIS) 2.5 mg QHS PO Last administered on 05/09/17 19:48; Start 05/08/17 at 21:00; Stop 05/09/17 at 21:00; Status DC Divalproex Sodium (Depakote Sprinkles) 250 mg [id number] PO Last administered on at 08:11; Start 05/12/17 at 09:00; Stop 06/05/17 at 11:11; Status DC Buspirone HCl (Buspar) 5 mg BID@0900,1300 PO Last administered on 05/18/17at 13: 00; Start 05/15/17 at 13:00; Stop 05/18/17 at 15:50; Status DC Trazodone HCl (Desyrel) 50 mg PRN QHS PRN PO INSOMNIA, MAY REPEAT X1 Last administered on 06/13/17at 20:03; Start 05/16/17 at 19:00 Buspirone HCl (Buspar) 5 mg TID PO Last administered on 05/19/17at 13:50; Start 05/18/17 at 21:00; Stop 05/19/17 at 18:46; Status DC Buspirone HCl (Buspar) 5 mg [id number] PO Last administered on 05/21/17at 12:43; Start 05/19/17 at 21:00; Stop 05/21/17 at 14:16; Status DC Buspirone HCl (Buspar) 5 mg BID@0900,1700 PO Last administered on 05/24/17at 07: 52; Start 05/21/17 at 17:00; Stop 05/24/17 at 16:26; Status DC Buspirone HCl (Buspar) 10 mg DAILY@1300 PO Last administered on 05/24/17at 13:00 ; Start 05/22/17 at 13:00; Stop 05/24/17 at 16:26; Status DC Buspirone HCl (Buspar) 10 mg DAILY@0900,1300,1700 PO Last administered on at 17:20; Start 05/24/17 at 17:00; Stop 05/27/17 at 17:51; Status DC Buspirone HCl (Buspar) 10 mg BID@1300,1700 PO Last administered on 06/01/17at 17 :27; Start 05/28/17 at 13:00; Stop 06/02/17 at 13:00; Status DC Buspirone HCl (Buspar) 15 mg DAILY PO Last administered on 06/01/17at 08:44; Start 05/28/17 at 09:00; Stop 06/01/17 at 21:57; Status DC Lorazepam (Ativan) 0.5 mg DAILYWLUN PO Last administered on 06/13/17at 12:05; Start 06/01/17 at 12:00 Buspirone HCl (Buspar) 15 mg BID@0900,1300 PO Last administered on 06/05/17at 08 :11; Start 06/02/17 at 09:00; Stop 06/05/17 at 11:11; Status DC Buspirone HCl (Buspar) 10 mg DAILY@1700 PO Last administered on 06/04/17at 16:56 ; Start 06/02/17 at 17:00; Stop 06/05/17 at 11:11; Status DC Buspirone HCl (Buspar) 15 mg TID@0900,1300,1700 PO Last administered on at 17:09; Start 06/05/17 at 13:00; Stop 06/12/17 at 17:24; Status DC Divalproex Sodium (Depakote Sprinkles) 375 mg [id number] PO Last administered on at 14:20; Start 06/05/17 at 14:00; Stop 06/05/17 at 18:30; Status DC Divalproex Sodium (Depakote Sprinkles) 250 mg [id number] PO Last administered on 06/09at 12:39; Start 06/06/17 at 09:00; Stop 06/09/17 at 18:42; Status DC Divalproex Sodium (Depakote Sprinkles) 125 mg [id number] PO Last administered on 06/13 12:06; Start 06/10/17 at 09:00 Buspirone HCl (Buspar) 15 mg 1300 PO Last administered on 06/13/17at 12:06; Start 06/13/17 at 13:00 Buspirone HCl (Buspar) 20 mg BID@0900,1700 PO Last administered on 06/13/17at 17: 26; Start 06/13/17 at 09:00 Active Scripts Active Reported Klor-Con (Potassium Chloride) 20 Meq Packet 20 Meq PO DAILY Xanax (Alprazolam) 0.25 Mg Tablet 0.25 Mg PO QID Zoloft (Sertraline Hcl) 100 Mg Tablet 100 Mg PO DAILY Lorazepam Intensol (Lorazepam) 2 Mg/1 Ml Oral.conc 0.5 Mg PO PRN Q4HRS PRN Senna S Tablet (Sennosides/Docusate Sodium) 1 Each Tablet 1 Tab PO BID Depakote Sprinkle (Divalproex Sodium) 125 Mg Cap.sprink 500 Mg PO QHS Depakote Sprinkle (Divalproex Sodium) 125 Mg Cap.sprink 125 Mg PO [id number] Tylenol (Acetaminophen) 325 Mg Tablet 650 Mg PO PRN Q6HRS PRN Olanzapine Odt (Olanzapine) 5 Mg Tab.rapdis 5 Mg PO QHS Analgesic Shelby (Methyl Salicylate/Menthol) 28 Gm Oint...g. 1 Beck TP PRN QID PRN Maalox Maximum Strength Susp (Mag Hydrox/Al Hydrox/Simeth) 355 Ml Oral.susp 15 Ml PO PRN AFTMEALHC PRN Milk Of Magnesia (Magnesium Hydroxide) 2,400 Mg/10 Ml Oral.susp 2,400 Mg PO PRN QHS PRN Vitamin B-12 (Cyanocobalamin (Vitamin B-12)) 1,000 Mcg Tablet 250 Mcg PO DAILY Lorazepam 0.5 Mg Tablet 0.5 Mg PO PRN Q4HRS PRN Dilantin (Phenytoin Sodium Extended) 100 Mg Capsule 100 Mg PO BID Aspirin 81 Mg Tab.chew 81 Mg PO DAILY I have reviewed the current psychotropics carefully including drug interactions. Risk benefit ratio favors no change other than as noted in my dictated progress note. Diagnosis: Problems: (1) Breakthrough seizure (2) Dementia with behavioral disturbance (3) Anxiety disorder (4) Dementia in Alzheimer's disease with delusions (5) Dementia in Alzheimer's disease with depression (6) Dementia, vascular, with delusions (7) Dementia, vascular, with depression (8) Impulse control disorder NAKIA KO MD Jun 13, 2017 23:24
--- NOTE | 2017-06-14 00:32 | PN ---
DATE: 06/12/2017 PSYCHIATRIC PROGRESS NOTE This late entry date of service 06/12/2017 covers elements not covered in my initial note of 06/12/2017. SUBJECTIVE: The patient was staffed at treatment team meeting with the entire team morning of 06/12/2017. The patient's daughter, Agata, attended the conference. We had a lengthy discussion about the patient's progress. She did well for a few days, but for the last 2-3 days, she has been restless, anxious, combative at times, receiving PRNs, slept 6 hours, appetite 50-75%. We will check a UA to make sure UTI is not worsening her symptoms and if UA is negative, we will increase the BuSpar to 20 mg twice a day, 15 mg a day in the afternoon. REVIEW OF SYSTEMS: No CV, , pulmonary, eye, ENT system symptoms on review. Reliability is poor. MENTAL STATUS EXAM: Oriented to herself. Insight, judgment, recent and remote memory, attention, concentration, fund of knowledge is poor, consistent with her diagnoses mentioned in my initial note. IMPRESSION: Major neurocognitive disorder, Alzheimer, vascular with depression, delusion, behavioral disturbance. Rest unchanged. PLAN: Continue psychotropics mentioned in my initial note and the changes noted above. NAKIA KO MD DR: [email or web address]/luz JOB#: [id number] / [id number]
[2017-06-14 05:54] VITALS: BP 153/60
[2017-06-14] MEDS: LACTOBACILLUS RHAMNOSUS GG 1 CAPSULE. PO SCH ×2 (08:51→21:00)
[2017-06-14] MEDS: ASPIRIN 81 MG TAB.CHEW PO SCH (08:51)
[2017-06-14] MEDS: PHENYTOIN SODIUM EXTENDED 100 MG CAPSULE PO SCH ×2 (08:51→21:03)
[2017-06-14] MEDS: SERTRALINE 100 MG TABLET. PO SCH (08:51)
[2017-06-14] MEDS: CYANOCOBALAMIN (VITAMIN B-12) 250 MCG TABLET PO SCH (08:51)
[2017-06-14] MEDS: SENNOSIDES/DOCUSATE 8.6/50MG TABLET. PO SCH ×2 (08:51→21:02)
[2017-06-14] MEDS: busPIRone 10 MG TABLET. PO SCH ×2 (08:51→18:18)
[2017-06-14] MEDS: DIVALPROEX 125 MG CAP.SPRINK PO SCH ×3 (08:52→21:02)
[2017-06-14] MEDS: POTASSIUM CHLORIDE 20 MEQ TABLET.ER. PO SCH (08:52)
[2017-06-14] MEDS: LORazepam 0.5 MG TABLET PO PRN ×3 (08:53→21:02)
[2017-06-14] MEDS: busPIRone 15 MG TABLET. PO SCH (13:25)
[2017-06-14] MEDS: LORazepam 0.5 MG TABLET PO SCH (13:25)
[2017-06-14 16:04] VITALS: BP 173/76
[2017-06-14] MEDS: traZODone 50 MG TABLET. PO PRN (21:02)
[2017-06-14] MEDS: MIRTAZAPINE 15 MG TABLET PO SCH (21:03)
--- NOTE | 2017-06-14 22:52 | PDOC ---
Exam Note: Dane Note: Please also refer to the separate dictated note~for this date of service dictated separately.~Patient seen individually. Discussed the patient with Nursing staff reviewed the chart.~Reviewed interim history and current functioning. Reviewed vital signs,~Labs/ Radiology~and current medications noted below. Continue current treatment with the changes noted in the dictated addendum note Assessment: Vital Signs: Vital Signs Date Time Temp Pulse Resp B/P (MAP) Pulse Ox O2 Delivery O2 Flow Rate FiO2 06/14/17 16:04 98.4 68 18 173/76 (108) 99 06/11/17 16:09 Room Air I&O Intake and Output 06/14/17 07:00 Intake Total 605 ml Balance 605 ml Intake Oral 605 ml Current Medications: Meds: Current Medications Diphtheria/ Tetanus/Acell Pertussis (Boostrix) 0.5 ml ONCE ONCE VAX IM Last administered on 05/01/17at 22:36; Start 05/01/17 at 19:15; Stop 05/01/17 at 19:16 ; Status DC Lorazepam (Ativan) 2 mg 1X ONCE IM Last administered on 05/01/17at 19:45; Start 05/01/17 at 19:45; Stop 05/01/17 at 19:46; Status DC Diphenhydramine HCl (Benadryl) 50 mg 1X ONCE IM Last administered on at 19:45; Start 05/01/17 at 19:45; Stop 05/01/17 at 19:46; Status DC Diphenhydramine HCl (Benadryl) 50 mg STK-MED ONCE .ROUTE ; Start 05/01/17 at 19: 36; Stop 05/01/17 at 19:37; Status DC Lorazepam (Ativan) 1 mg STK-MED ONCE .ROUTE ; Start 05/01/17 at 19:38; Stop at 19:39; Status DC Midazolam HCl (Versed) 2 mg 1X ONCE IV ; Start 05/01/17 at 20:30; Stop at 20:31; Status DC Midazolam HCl (Versed) 5 mg STK-MED ONCE .ROUTE ; Start 05/01/17 at 20:25; Stop 05/01/17 at 20:26; Status DC Midazolam HCl (Versed) 5 mg 1X ONCE NS Last administered on 05/01/17at 20:40; Start 05/01/17 at 21:00; Stop 05/01/17 at 21:01; Status DC Ceftriaxone Sodium (Rocephin Im) 1 gm 1X ONCE IM Last administered on at 22:36; Start 05/01/17 at 21:15; Stop 05/01/17 at 21:16; Status DC Enoxaparin Sodium (Lovenox 60mg Syringe) 50 mg 1X ONCE SQ ; Start 05/01/17 at 21:45; Stop 05/01/17 at 21:45; Status DC Enoxaparin Sodium (Lovenox) 55 mg BID SQ ; Start 05/02/17 at 09:00; Stop at 09:00; Status DC Enoxaparin Sodium (Lovenox 60mg Syringe) 55 mg 1X ONCE SQ Last administered on 05/01/17at 22:35; Start 05/01/17 at 21:45; Stop 05/01/17 at 21:46; Status DC Iohexol (Omnipaque 300 Mg/ml) 75 ml 1X ONCE IV Last administered on 05/01/17at 22:11; Start 05/01/17 at 22:00; Stop 05/01/17 at 22:01; Status DC Midazolam HCl (Versed) 5 mg 1X ONCE IV ; Start 05/01/17 at 22:15; Stop at 22:18; Status DC Midazolam HCl (Versed) 1 mg 1X ONCE IV Last administered on 05/01/17at 22:30; Start 05/01/17 at 23:00; Stop 05/01/17 at 23:02; Status DC Cephalexin HCl (Keflex) 500 mg TID PO Last administered on 05/03/17at 20:27; Start 05/02/17 at 09:00; Stop 05/03/17 at 22:41; Status DC Alprazolam (Xanax) 0.25 mg QID PO Last administered on 05/02/17at 17:32; Start 05/02/17 at 09:00; Stop 05/02/17 at 19:27; Status DC Divalproex Sodium (Depakote Sprinkles) 125 mg BID92 PO Last administered on 05/11at 14:05; Start 05/02/17 at 09:00; Stop 05/11/17 at 18:42; Status DC Divalproex Sodium (Depakote Sprinkles) 500 mg QHS PO Last administered on at 19:41; Start 05/02/17 at 21:00; Stop 05/07/17 at 18:37; Status DC Lorazepam (Ativan) 0.5 mg PRN Q4HRS PRN PO ANXIETY / AGITATION Last administered on 06/14/17 21:02; Start 05/02/17 at 01:00 Lorazepam (Ativan Intensol) 0.5 mg PRN Q4HRS PRN PO ANXIETY / AGITATION Last administered on 06/13/17 01:51; Start 05/02/17 at 01:00 Olanzapine (ZyPREXA ZYDIS) 5 mg QHS PO Last administered on 05/07/17at 20:07; Start 05/02/17 at 21:00; Stop 05/08/17 at 19:10; Status DC Sertraline HCl (Zoloft) 100 mg DAILY PO Last administered on 06/14/17at 08:51; Start 05/02/17 at 09:00 Levofloxacin (Levaquin) 500 mg DAILY06 PO Last administered on 05/02/17at 08:53 ; Start 05/02/17 at 07:30; Stop 05/02/17 at 10:36; Status DC Lactobacillus Rhamnosus (Culturelle) 1 cap BID PO Last administered on at 21:00; Start 05/02/17 at 09:00 Levofloxacin (Levaquin) 250 mg DAILY06 PO Last administered on 05/06/17at 07:45 ; Start 05/03/17 at 06:00; Stop 05/06/17 at 18:15; Status DC Alprazolam (Xanax) 0.25 mg TID PO Last administered on 05/06/17at 14:25; Start 05/02/17 at 21:00; Stop 05/06/17 at 20:59; Status DC Alprazolam (Xanax) 0.25 mg BID PO Last administered on 05/09/17at 19:50; Start at 21:00; Stop 05/10/17 at 08:59; Status DC Alprazolam (Xanax) 0.25 mg DAILY PO Last administered on 05/13/17 08:21; Start 05/10/17 at 09:00; Stop 05/14/17 at 08:59; Status DC Mirtazapine (Remeron) 7.5 mg QHS PO Last administered on 05/02/17 19:59; Start 05/02/17 at 21:00; Stop 05/03/17 at 19:31; Status DC Acetaminophen (Tylenol) 650 mg PRN Q6HRS PRN PO PAIN; Start 05/02/17 at 19:30 Aspirin (Children'S Aspirin) 81 mg DAILY PO Last administered on 06/14/17 08:51 ; Start 05/03/17 at 09:00 Cyanocobalamin (Vitamin B-12) 250 mcg DAILY PO Last administered on 06/14/17 08 :51; Start 05/03/17 at 09:00 Al Hydroxide/Mg Hydroxide (Mylanta Plus Xs) 15 ml PRN AFTMEALHC PRN PO DYSPEPSIA; Start 05/02/17 at 19:30 Multi-Ingredient Ointment (Analgesic Wilberforce) 1 beck PRN QID PRN TP MUSCLE PAIN; Start 05/02/17 at 19:30 Phenytoin Sodium (Dilantin) 100 mg BID PO Last administered on 06/14/17 21:03; Start 05/02/17 at 21:00 Senna/Docusate Sodium (Senna Plus) 1 tab BID PO Last administered on 06/14/17 21:02; Start 05/02/17 at 21:00 Magnesium Hydroxide (Milk Of Magnesia) 2,400 mg PRN QHS PRN PO CONSTIPATION Last administered on 05/20/17at 11:56; Start 05/02/17 at 19:45 Potassium Chloride (Klor-Con) 20 meq DAILYWBKFT PO Last administered on 08:52; Start 05/03/17 at 08:00 Neomycin/ Polymyxin/ Bacitracin (Triple Antibiotic Ointment) 1 pkt BID TP Last administered on 05/08/17 08:51; Start 05/03/17 at 21:00; Stop 05/08/17 at 20:59; Status DC Mirtazapine (Remeron) 15 mg QHS PO Last administered on 4/7/18at 21:03; Start 05/03/17 at 21:00 Trazodone HCl (Desyrel) 50 mg PRN QHS PRN PO SLEEP Last administered on at 01:56; Start 05/03/17 at 19:30; Stop 05/16/17 at 18:59; Status DC Alprazolam (Xanax) 0.25 mg 1X ONCE PO Last administered on 05/05/17at 09:36; Start 05/05/17 at 10:00; Stop 05/05/17 at 10:01; Status DC Buspirone HCl (Buspar) 5 mg TID@0900,1300,1700 PO Last administered on at 16:43; Start 05/06/17 at 09:00; Stop 05/06/17 at 18:23; Status DC Buspirone HCl (Buspar) 5 mg BID@1300,1700 PO Last administered on 05/09/17at 14: 08; Start 05/07/17 at 13:00; Stop 05/09/17 at 18:34; Status DC Buspirone HCl (Buspar) 10 mg DAILY PO Last administered on 05/08/17at 08:49; Start 05/07/17 at 09:00; Stop 05/08/17 at 19:10; Status DC Divalproex Sodium (Depakote Sprinkles) 750 mg QHS PO Last administered on at 21:02; Start 05/07/17 at 21:00 Olanzapine (ZyPREXA ZYDIS) 2.5 mg QHS PO Last administered on 05/09/17at 19:48; Start 05/08/17 at 21:00; Stop 05/09/17 at 21:00; Status DC Divalproex Sodium (Depakote Sprinkles) 250 mg [id number] PO Last administered on at 08:11; Start 05/12/17 at 09:00; Stop 06/05/17 at 11:11; Status DC Buspirone HCl (Buspar) 5 mg BID@0900,1300 PO Last administered on 05/18/17at 13: 00; Start 05/15/17 at 13:00; Stop 05/18/17 at 15:50; Status DC Trazodone HCl (Desyrel) 50 mg PRN QHS PRN PO INSOMNIA, MAY REPEAT X1 Last administered on 06/14/17at 21:02; Start 05/16/17 at 19:00 Buspirone HCl (Buspar) 5 mg TID PO Last administered on 05/19/17at 13:50; Start 05/18/17 at 21:00; Stop 05/19/17 at 18:46; Status DC Buspirone HCl (Buspar) 5 mg [id number] PO Last administered on 05/21/17at 12:43; Start 05/19/17 at 21:00; Stop 05/21/17 at 14:16; Status DC Buspirone HCl (Buspar) 5 mg BID@0900,1700 PO Last administered on 05/24/17at 07: 52; Start 05/21/17 at 17:00; Stop 05/24/17 at 16:26; Status DC Buspirone HCl (Buspar) 10 mg DAILY@1300 PO Last administered on 05/24/17at 13:00 ; Start 05/22/17 at 13:00; Stop 05/24/17 at 16:26; Status DC Buspirone HCl (Buspar) 10 mg DAILY@0900,1300,1700 PO Last administered on at 17:20; Start 05/24/17 at 17:00; Stop 05/27/17 at 17:51; Status DC Buspirone HCl (Buspar) 10 mg BID@1300,1700 PO Last administered on 06/01/17at 17 :27; Start 05/28/17 at 13:00; Stop 06/02/17 at 13:00; Status DC Buspirone HCl (Buspar) 15 mg DAILY PO Last administered on 06/01/17at 08:44; Start 05/28/17 at 09:00; Stop 06/01/17 at 21:57; Status DC Lorazepam (Ativan) 0.5 mg DAILYWLUN PO Last administered on 06/14/17at 13:25; Start 06/01/17 at 12:00 Buspirone HCl (Buspar) 15 mg BID@0900,1300 PO Last administered on 06/05/17at 08 :11; Start 06/02/17 at 09:00; Stop 06/05/17 at 11:11; Status DC Buspirone HCl (Buspar) 10 mg DAILY@1700 PO Last administered on 06/04/17at 16:56 ; Start 06/02/17 at 17:00; Stop 06/05/17 at 11:11; Status DC Buspirone HCl (Buspar) 15 mg TID@0900,1300,1700 PO Last administered on at 17:09; Start 06/05/17 at 13:00; Stop 06/12/17 at 17:24; Status DC Divalproex Sodium (Depakote Sprinkles) 375 mg BID92 PO Last administered on at 14:20; Start 06/05/17 at 14:00; Stop 06/05/17 at 18:30; Status DC Divalproex Sodium (Depakote Sprinkles) 250 mg BID92 PO Last administered on 06/09at 12:39; Start 06/06/17 at 09:00; Stop 06/09/17 at 18:42; Status DC Divalproex Sodium (Depakote Sprinkles) 125 mg BID92 PO Last administered on 06/14at 13:26; Start 06/10/17 at 09:00 Buspirone HCl (Buspar) 15 mg 1300 PO Last administered on 06/14/17at 13:25; Start 06/13/17 at 13:00 Buspirone HCl (Buspar) 20 mg BID@0900,1700 PO Last administered on 06/14/17at 18: 18; Start 06/13/17 at 09:00 Active Scripts Active Reported Klor-Con (Potassium Chloride) 20 Meq Packet 20 Meq PO DAILY Xanax (Alprazolam) 0.25 Mg Tablet 0.25 Mg PO QID Zoloft (Sertraline Hcl) 100 Mg Tablet 100 Mg PO DAILY Lorazepam Intensol (Lorazepam) 2 Mg/1 Ml Oral.conc 0.5 Mg PO PRN Q4HRS PRN Senna S Tablet (Sennosides/Docusate Sodium) 1 Each Tablet 1 Tab PO BID Depakote Sprinkle (Divalproex Sodium) 125 Mg Cap.sprink 500 Mg PO QHS Depakote Sprinkle (Divalproex Sodium) 125 Mg Cap.sprink 125 Mg PO BID92 Tylenol (Acetaminophen) 325 Mg Tablet 650 Mg PO PRN Q6HRS PRN Olanzapine Odt (Olanzapine) 5 Mg Tab.rapdis 5 Mg PO QHS Analgesic Wilberforce (Methyl Salicylate/Menthol) 28 Gm Oint...g. 1 Beck TP PRN QID PRN Maalox Maximum Strength Susp (Mag Hydrox/Al Hydrox/Simeth) 355 Ml Oral.susp 15 Ml PO PRN AFTMEALHC PRN Milk Of Magnesia (Magnesium Hydroxide) 2,400 Mg/10 Ml Oral.susp 2,400 Mg PO PRN QHS PRN Vitamin B-12 (Cyanocobalamin (Vitamin B-12)) 1,000 Mcg Tablet 250 Mcg PO DAILY Lorazepam 0.5 Mg Tablet 0.5 Mg PO PRN Q4HRS PRN Dilantin (Phenytoin Sodium Extended) 100 Mg Capsule 100 Mg PO BID Aspirin 81 Mg Tab.chew 81 Mg PO DAILY I have reviewed the current psychotropics carefully including drug interactions. Risk benefit ratio favors no change other than as noted in my dictated progress note. Diagnosis: Problems: (1) Hypernatremia (2) Breakthrough seizure (3) Dementia with behavioral disturbance (4) Anxiety disorder (5) Dementia in Alzheimer's disease with delusions (6) Dementia in Alzheimer's disease with depression (7) Dementia, vascular, with delusions (8) Dementia, vascular, with depression (9) Impulse control disorder NAKIA KO MD Jun 14, 2017 22:52
[2017-06-15 06:01] VITALS: BP 123/54
[2017-06-15] MEDS: CYANOCOBALAMIN (VITAMIN B-12) 250 MCG TABLET PO SCH (07:58)
[2017-06-15] MEDS: DIVALPROEX 125 MG CAP.SPRINK PO SCH ×3 (07:59→19:44)
[2017-06-15] MEDS: SENNOSIDES/DOCUSATE 8.6/50MG TABLET. PO SCH ×2 (07:59→19:43)
[2017-06-15] MEDS: POTASSIUM CHLORIDE 20 MEQ TABLET.ER. PO SCH (07:59)
[2017-06-15] MEDS: PHENYTOIN SODIUM EXTENDED 100 MG CAPSULE PO SCH ×2 (07:59→19:43)
[2017-06-15] MEDS: ASPIRIN 81 MG TAB.CHEW PO SCH (07:59)
[2017-06-15] MEDS: SERTRALINE 100 MG TABLET. PO SCH (08:00)
[2017-06-15] MEDS: LACTOBACILLUS RHAMNOSUS GG 1 CAPSULE. PO SCH ×2 (08:00→19:43)
[2017-06-15] MEDS: busPIRone 10 MG TABLET. PO SCH ×2 (08:00→17:00)
[2017-06-15] MEDS: LORazepam 0.5 MG TABLET PO SCH (08:04)
[2017-06-15 09:32] LABS: BASO % 0 % (0-3); EOS % 1 % (0-3); LYMPH % 16 % (24-48); MEAN CORPUSCULAR HEMOGLOBIN 32 pg (25-35); MEAN CORPUSCULAR HGB CONC 33 g/dL (31-37); MEAN CORPUSCULAR VOLUME 97 fL (79-100); MONO # 0.5 x10^3/uL (0.0-1.1); MONO % 8 % (0-9); NEUT # 4.4 x10^3uL (1.8-7.7); NEUT % 75 % (31-73); PLATELET COUNT 209 x10^3/uL (140-400); RED CELL DISTRIBUTION WIDTH 15.4 % (11.5-14.5); WHITE BLOOD COUNT 5.9 x10^3/uL (4.0-11.0)
[2017-06-15 09:44] LABS: ALBUMIN 3.6 g/dL (3.4-5.0); ALBUMIN/GLOBULIN RATIO 1.1 (1.0-1.7); CALCIUM 8.9 mg/dL (8.5-10.1); CREATININE 1.1 mg/dL (0.6-1.0); GFR 47.1; POTASSIUM 3.9 mmol/L (3.5-5.1); TOTAL BILIRUBIN 0.5 mg/dL (0.2-1.0); VAL ACID 36 mcg/mL (50-100)
[2017-06-15] MEDS: LORazepam 0.5 MG TABLET PO PRN (12:00)
[2017-06-15] MEDS: busPIRone 15 MG TABLET. PO SCH (13:26)
[2017-06-15 15:49] VITALS: BP 136/83
[2017-06-15] MEDS: MIRTAZAPINE 15 MG TABLET PO SCH (19:43)
[2017-06-15] MEDS: traZODone 50 MG TABLET. PO PRN (19:43)
--- NOTE | 2017-06-15 20:58 | PDOC ---
Exam Note: Dane Note: Please also refer to the separate dictated note~for this date of service dictated separately.~Patient seen individually. Discussed the patient with Nursing staff reviewed the chart.~Reviewed interim history and current functioning. Reviewed vital signs,~Labs/ Radiology~and current medications noted below. Continue current treatment with the changes noted in the dictated addendum note Assessment: Vital Signs: Vital Signs Date Time Temp Pulse Resp B/P (MAP) Pulse Ox O2 Delivery O2 Flow Rate FiO2 06/15/17 15:49 97.0 69 22 136/83 (100) 94 06/11/17 16:09 Room Air I&O Intake and Output 06/15/17 07:00 Intake Total 420 ml Balance 420 ml Intake Oral 420 ml Labs: Laboratory Tests Test 06/15/17 09:17 White Blood Count 5.9 x10^3/uL (4.0-11.0) Red Blood Count 3.40 x10^6/uL (3.50-5.40) L Hemoglobin 11.0 g/dL (12.0-15.5) L Hematocrit 33.0 % (36.0-47.0) L Mean Corpuscular Volume 97 fL (79-100) Mean Corpuscular Hemoglobin 32 pg (25-35) Mean Corpuscular Hemoglobin Concent 33 g/dL (31-37) Red Cell Distribution Width 15.4 % (11.5-14.5) H Platelet Count 209 x10^3/uL (140-400) Neutrophils (%) (Auto) 75 % (31-73) H Lymphocytes (%) (Auto) 16 % (24-48) L Monocytes (%) (Auto) 8 % (0-9) Eosinophils (%) (Auto) 1 % (0-3) Basophils (%) (Auto) 0 % (0-3) Neutrophils # (Auto) 4.4 x10^3uL (1.8-7.7) Lymphocytes # (Auto) 1.0 x10^3/uL (1.0-4.8) Monocytes # (Auto) 0.5 x10^3/uL (0.0-1.1) Eosinophils # (Auto) 0.0 x10^3/uL (0.0-0.7) Basophils # (Auto) 0.0 x10^3/uL (0.0-0.2) Sodium Level 151 mmol/L (136-145) H Potassium Level 3.9 mmol/L (3.5-5.1) Chloride Level 113 mmol/L (98-107) H Carbon Dioxide Level 27 mmol/L (21-32) Anion Gap 11 (6-14) Blood Urea Nitrogen 39 mg/dL (7-20) H Creatinine 1.1 mg/dL (0.6-1.0) H Estimated GFR (Cockcroft-Gault) 47.1 BUN/Creatinine Ratio 35 (6-20) H Glucose Level 158 mg/dL (70-99) H Calcium Level 8.9 mg/dL (8.5-10.1) Total Bilirubin 0.5 mg/dL (0.2-1.0) Aspartate Amino Transferase (AST) 28 U/L (15-37) Alanine Aminotransferase (ALT) 37 U/L (14-59) Alkaline Phosphatase 87 U/L (46-116) Total Protein 7.0 g/dL (6.4-8.2) Albumin 3.6 g/dL (3.4-5.0) Albumin/Globulin Ratio 1.1 (1.0-1.7) Valproic Acid Level 36 mcg/mL (50-100) L Valproic Acid Last Dose Date 06/14/17 Valproic Acid Last Dose Time 2100 Current Medications: Meds: Current Medications Diphtheria/ Tetanus/Acell Pertussis (Boostrix) 0.5 ml ONCE ONCE VAX IM Last administered on 05/01/17at 22:36; Start 05/01/17 at 19:15; Stop 05/01/17 at 19:16 ; Status DC Lorazepam (Ativan) 2 mg 1X ONCE IM Last administered on 05/01/17at 19:45; Start 05/01/17 at 19:45; Stop 05/01/17 at 19:46; Status DC Diphenhydramine HCl (Benadryl) 50 mg 1X ONCE IM Last administered on at 19:45; Start 05/01/17 at 19:45; Stop 05/01/17 at 19:46; Status DC Diphenhydramine HCl (Benadryl) 50 mg STK-MED ONCE .ROUTE ; Start 05/01/17 at 19: 36; Stop 05/01/17 at 19:37; Status DC Lorazepam (Ativan) 1 mg STK-MED ONCE .ROUTE ; Start 05/01/17 at 19:38; Stop at 19:39; Status DC Midazolam HCl (Versed) 2 mg 1X ONCE IV ; Start 05/01/17 at 20:30; Stop at 20:31; Status DC Midazolam HCl (Versed) 5 mg STK-MED ONCE .ROUTE ; Start 05/01/17 at 20:25; Stop 05/01/17 at 20:26; Status DC Midazolam HCl (Versed) 5 mg 1X ONCE NS Last administered on 05/01/17at 20:40; Start 05/01/17 at 21:00; Stop 05/01/17 at 21:01; Status DC Ceftriaxone Sodium (Rocephin Im) 1 gm 1X ONCE IM Last administered on at 22:36; Start 05/01/17 at 21:15; Stop 05/01/17 at 21:16; Status DC Enoxaparin Sodium (Lovenox 60mg Syringe) 50 mg 1X ONCE SQ ; Start 05/01/17 at 21:45; Stop 05/01/17 at 21:45; Status DC Enoxaparin Sodium (Lovenox) 55 mg BID SQ ; Start 05/02/17 at 09:00; Stop at 09:00; Status DC Enoxaparin Sodium (Lovenox 60mg Syringe) 55 mg 1X ONCE SQ Last administered on 05/01/17at 22:35; Start 05/01/17 at 21:45; Stop 05/01/17 at 21:46; Status DC Iohexol (Omnipaque 300 Mg/ml) 75 ml 1X ONCE IV Last administered on 05/01/17at 22:11; Start 05/01/17 at 22:00; Stop 05/01/17 at 22:01; Status DC Midazolam HCl (Versed) 5 mg 1X ONCE IV ; Start 05/01/17 at 22:15; Stop at 22:18; Status DC Midazolam HCl (Versed) 1 mg 1X ONCE IV Last administered on 05/01/17at 22:30; Start 05/01/17 at 23:00; Stop 05/01/17 at 23:02; Status DC Cephalexin HCl (Keflex) 500 mg TID PO Last administered on 05/03/17 20:27; Start 05/02/17 at 09:00; Stop 05/03/17 at 22:41; Status DC Alprazolam (Xanax) 0.25 mg QID PO Last administered on 05/02/17 17:32; Start 05/02/17 at 09:00; Stop 05/02/17 at 19:27; Status DC Divalproex Sodium (Depakote Sprinkles) 125 mg BID92 PO Last administered on 05/11 14:05; Start 05/02/17 at 09:00; Stop 05/11/17 at 18:42; Status DC Divalproex Sodium (Depakote Sprinkles) 500 mg QHS PO Last administered on 19:41; Start 05/02/17 at 21:00; Stop 05/07/17 at 18:37; Status DC Lorazepam (Ativan) 0.5 mg PRN Q4HRS PRN PO ANXIETY / AGITATION Last administered on 06/15/17 12:00; Start 05/02/17 at 01:00 Lorazepam (Ativan Intensol) 0.5 mg PRN Q4HRS PRN PO ANXIETY / AGITATION Last administered on 06/13/17 01:51; Start 05/02/17 at 01:00 Olanzapine (ZyPREXA ZYDIS) 5 mg QHS PO Last administered on 05/07/17 20:07; Start 05/02/17 at 21:00; Stop 05/08/17 at 19:10; Status DC Sertraline HCl (Zoloft) 100 mg DAILY PO Last administered on 06/15/17 08:00; Start 05/02/17 at 09:00 Levofloxacin (Levaquin) 500 mg DAILY06 PO Last administered on 05/02/17 08:53 ; Start 05/02/17 at 07:30; Stop 05/02/17 at 10:36; Status DC Lactobacillus Rhamnosus (Culturelle) 1 cap BID PO Last administered on 19:43; Start 05/02/17 at 09:00 Levofloxacin (Levaquin) 250 mg DAILY06 PO Last administered on 05/06/17 07:45 ; Start 05/03/17 at 06:00; Stop 05/06/17 at 18:15; Status DC Alprazolam (Xanax) 0.25 mg TID PO Last administered on 05/06/17at 14:25; Start 05/02/17 at 21:00; Stop 05/06/17 at 20:59; Status DC Alprazolam (Xanax) 0.25 mg BID PO Last administered on 05/09/17 19:50; Start at 21:00; Stop 05/10/17 at 08:59; Status DC Alprazolam (Xanax) 0.25 mg DAILY PO Last administered on 05/13/17at 08:21; Start 05/10/17 at 09:00; Stop 05/14/17 at 08:59; Status DC Mirtazapine (Remeron) 7.5 mg QHS PO Last administered on 05/02/17 19:59; Start 05/02/17 at 21:00; Stop 05/03/17 at 19:31; Status DC Acetaminophen (Tylenol) 650 mg PRN Q6HRS PRN PO PAIN; Start 05/02/17 at 19:30 Aspirin (Children'S Aspirin) 81 mg DAILY PO Last administered on 06/15/17 07:59 ; Start 05/03/17 at 09:00 Cyanocobalamin (Vitamin B-12) 250 mcg DAILY PO Last administered on 06/15/17 07 :58; Start 05/03/17 at 09:00 Al Hydroxide/Mg Hydroxide (Mylanta Plus Xs) 15 ml PRN AFTMEALHC PRN PO DYSPEPSIA; Start 05/02/17 at 19:30 Multi-Ingredient Ointment (Analgesic [place]) 1 beck PRN QID PRN TP MUSCLE PAIN; Start 05/02/17 at 19:30 Phenytoin Sodium (Dilantin) 100 mg BID PO Last administered on 06/15/17 19:43; Start 05/02/17 at 21:00 Senna/Docusate Sodium (Senna Plus) 1 tab BID PO Last administered on 06/15/17 19:43; Start 05/02/17 at 21:00 Magnesium Hydroxide (Milk Of Magnesia) 2,400 mg PRN QHS PRN PO CONSTIPATION Last administered on 05/20/17at 11:56; Start 05/02/17 at 19:45 Potassium Chloride (Klor-Con) 20 meq DAILYWBKFT PO Last administered on at 07:59; Start 05/03/17 at 08:00 Neomycin/ Polymyxin/ Bacitracin (Triple Antibiotic Ointment) 1 pkt BID TP Last administered on 05/08/17 08:51; Start 05/03/17 at 21:00; Stop 05/08/17 at 20:59; Status DC Mirtazapine (Remeron) 15 mg QHS PO Last administered on 06/15/17 19:43; Start 05/03/17 at 21:00 Trazodone HCl (Desyrel) 50 mg PRN QHS PRN PO SLEEP Last administered on 01:56; Start 05/03/17 at 19:30; Stop 05/16/17 at 18:59; Status DC Alprazolam (Xanax) 0.25 mg 1X ONCE PO Last administered on 05/05/17at 09:36; Start 05/05/17 at 10:00; Stop 05/05/17 at 10:01; Status DC Buspirone HCl (Buspar) 5 mg TID@0900,1300,1700 PO Last administered on at 16:43; Start 05/06/17 at 09:00; Stop 05/06/17 at 18:23; Status DC Buspirone HCl (Buspar) 5 mg BID@1300,1700 PO Last administered on 05/09/17 14: 08; Start 05/07/17 at 13:00; Stop 05/09/17 at 18:34; Status DC Buspirone HCl (Buspar) 10 mg DAILY PO Last administered on 05/08/17 08:49; Start 05/07/17 at 09:00; Stop 05/08/17 at 19:10; Status DC Divalproex Sodium (Depakote Sprinkles) 750 mg QHS PO Last administered on 19:44; Start 05/07/17 at 21:00 Olanzapine (ZyPREXA ZYDIS) 2.5 mg QHS PO Last administered on 05/09/17 19:48; Start 05/08/17 at 21:00; Stop 05/09/17 at 21:00; Status DC Divalproex Sodium (Depakote Sprinkles) 250 mg [id number] PO Last administered on at 08:11; Start 05/12/17 at 09:00; Stop 06/05/17 at 11:11; Status DC Buspirone HCl (Buspar) 5 mg BID@0900,1300 PO Last administered on 05/18/17at 13: 00; Start 05/15/17 at 13:00; Stop 05/18/17 at 15:50; Status DC Trazodone HCl (Desyrel) 50 mg PRN QHS PRN PO INSOMNIA, MAY REPEAT X1 Last administered on 06/15/17at 19:43; Start 05/16/17 at 19:00 Buspirone HCl (Buspar) 5 mg TID PO Last administered on 05/19/17at 13:50; Start 05/18/17 at 21:00; Stop 05/19/17 at 18:46; Status DC Buspirone HCl (Buspar) 5 mg [id number] PO Last administered on 05/21/17at 12:43; Start 05/19/17 at 21:00; Stop 05/21/17 at 14:16; Status DC Buspirone HCl (Buspar) 5 mg BID@0900,1700 PO Last administered on 05/24/17at 07: 52; Start 05/21/17 at 17:00; Stop 05/24/17 at 16:26; Status DC Buspirone HCl (Buspar) 10 mg DAILY@1300 PO Last administered on 05/24/17at 13:00 ; Start 05/22/17 at 13:00; Stop 05/24/17 at 16:26; Status DC Buspirone HCl (Buspar) 10 mg DAILY@0900,1300,1700 PO Last administered on at 17:20; Start 05/24/17 at 17:00; Stop 05/27/17 at 17:51; Status DC Buspirone HCl (Buspar) 10 mg BID@1300,1700 PO Last administered on 06/01/17at 17 :27; Start 05/28/17 at 13:00; Stop 06/02/17 at 13:00; Status DC Buspirone HCl (Buspar) 15 mg DAILY PO Last administered on 06/01/17at 08:44; Start 05/28/17 at 09:00; Stop 06/01/17 at 21:57; Status DC Lorazepam (Ativan) 0.5 mg DAILYWLUN PO Last administered on 06/15/17 08:04; Start 06/01/17 at 12:00 Buspirone HCl (Buspar) 15 mg BID@0900,1300 PO Last administered on 06/05/17at 08 :11; Start 06/02/17 at 09:00; Stop 06/05/17 at 11:11; Status DC Buspirone HCl (Buspar) 10 mg DAILY@1700 PO Last administered on 06/04/17 16:56 ; Start 06/02/17 at 17:00; Stop 06/05/17 at 11:11; Status DC Buspirone HCl (Buspar) 15 mg TID@0900,1300,1700 PO Last administered on 17:09; Start 06/05/17 at 13:00; Stop 06/12/17 at 17:24; Status DC Divalproex Sodium (Depakote Sprinkles) 375 mg BID92 PO Last administered on 14:20; Start 06/05/17 at 14:00; Stop 06/05/17 at 18:30; Status DC Divalproex Sodium (Depakote Sprinkles) 250 mg BID92 PO Last administered on 06/09at 12:39; Start 06/06/17 at 09:00; Stop 06/09/17 at 18:42; Status DC Divalproex Sodium (Depakote Sprinkles) 125 mg BID92 PO Last administered on 06/15 13:27; Start 06/10/17 at 09:00 Buspirone HCl (Buspar) 15 mg 1300 PO Last administered on 06/15/17 13:26; Start 06/13/17 at 13:00 Buspirone HCl (Buspar) 20 mg BID@0900,1700 PO Last administered on 06/15/17 17: 00; Start 06/13/17 at 09:00 Active Scripts Active Reported Klor-Con (Potassium Chloride) 20 Meq Packet 20 Meq PO DAILY Xanax (Alprazolam) 0.25 Mg Tablet 0.25 Mg PO QID Zoloft (Sertraline Hcl) 100 Mg Tablet 100 Mg PO DAILY Lorazepam Intensol (Lorazepam) 2 Mg/1 Ml Oral.conc 0.5 Mg PO PRN Q4HRS PRN Senna S Tablet (Sennosides/Docusate Sodium) 1 Each Tablet 1 Tab PO BID Depakote Sprinkle (Divalproex Sodium) 125 Mg Cap.sprink 500 Mg PO QHS Depakote Sprinkle (Divalproex Sodium) 125 Mg Cap.sprink 125 Mg PO BID92 Tylenol (Acetaminophen) 325 Mg Tablet 650 Mg PO PRN Q6HRS PRN Olanzapine Odt (Olanzapine) 5 Mg Tab.rapdis 5 Mg PO QHS Analgesic [place] (Methyl Salicylate/Menthol) 28 Gm Oint...g. 1 Beck TP PRN QID PRN Maalox Maximum Strength Susp (Mag Hydrox/Al Hydrox/Simeth) 355 Ml Oral.susp 15 Ml PO PRN AFTMEALHC PRN Milk Of Magnesia (Magnesium Hydroxide) 2,400 Mg/10 Ml Oral.susp 2,400 Mg PO PRN QHS PRN Vitamin B-12 (Cyanocobalamin (Vitamin B-12)) 1,000 Mcg Tablet 250 Mcg PO DAILY Lorazepam 0.5 Mg Tablet 0.5 Mg PO PRN Q4HRS PRN Dilantin (Phenytoin Sodium Extended) 100 Mg Capsule 100 Mg PO BID Aspirin 81 Mg Tab.chew 81 Mg PO DAILY I have reviewed the current psychotropics carefully including drug interactions. Risk benefit ratio favors no change other than as noted in my dictated progress note. 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
--- NOTE | 2017-06-15 22:00 | PN ---
DATE: 06/13/2017 PSYCHIATRIC PROGRESS NOTE This is a late entry for 06/13/2017, covers elements not covered in my initial note of 06/13/2017. SUBJECTIVE: I met with the patient the evening of 06/13/2017. UA is negative. She continues to ambulate around the hallways, anxious, agitated. Received Ativan at 1:30 a.m. and did receive trazodone at night, woke up agitated in the morning, took her clothes off in the hallway, taken to shower, was combative, urinated on the floor, has been placed in a ____. REVIEW OF SYSTEMS: No CV, , pulmonary, eye, ENT system symptoms on review. Reliability poor. MENTAL STATUS EXAM: Oriented to herself. Insight, judgment, recent and remote memory, attention, concentration, fund of knowledge poor, consistent with her diagnosis mentioned in my initial note. IMPRESSION: Major neurocognitive disorder, Alzheimer, vascular with delusion, depression, behavioral disturbance. PLAN: Continue psychotropics mentioned in my initial note. NAKIA KO MD DR: LUCRECIA/luz JOB#: [id number] / [id number]
--- NOTE | 2017-06-16 01:51 | PN ---
DATE: 06/14/2017 This is a late entry, 06/14/2017, covers the elements not covered in the initial note, 06/14/2017. SUBJECTIVE: I met with the patient in the evening of 06/14/2017. Overall, the patient remains confused, somewhat anxious, and restless at times. She had to be placed in the secure [place] hallway because of over stimulation from sensory stimuli and then did better. Received Ativan in the morning, stripping her clothes in the afternoon [place] dress was placed on her, which helped. REVIEW OF SYSTEMS: No CV, , pulmonary, eye, ENT system symptoms on review. Reliability poor. Gait unsteady. MENTAL STATUS EXAM: Oriented to herself. Insight, judgment, recent and remote memory, attention, concentration, fund of knowledge poor, consistent with her diagnosis as mentioned in my initial note. IMPRESSION: Major neurocognitive disorder, Alzheimer, vascular with depression, delusion, behavioral disturbance. Rest unchanged. PLAN: Continue psychotropics as mentioned in my initial note. Adjust further as clinically indicated. We have tried many changes in her psychotropics including reducing much of her psychotropics to see if she would do better with fewer rather than more antipsychotics and psychotropics, all of which had failed. We are close to her doing the best she can, given her diagnoses and her current schedule of medications seems to be the best we can do for her with respect to the agitation, mood lability. Anything more seems to impair her gait and makes her at significant fall risk. MAN Leandro KO MD DR: LUCRECIA/luz JOB#: [id number] / [id number]
[2017-06-16] MEDS: CYANOCOBALAMIN (VITAMIN B-12) 250 MCG TABLET PO SCH (08:04)
[2017-06-16] MEDS: SENNOSIDES/DOCUSATE 8.6/50MG TABLET. PO SCH ×2 (08:04→20:20)
[2017-06-16] MEDS: PHENYTOIN SODIUM EXTENDED 100 MG CAPSULE PO SCH (08:05)
[2017-06-16] MEDS: POTASSIUM CHLORIDE 20 MEQ TABLET.ER. PO SCH (08:05)
[2017-06-16] MEDS: SERTRALINE 100 MG TABLET. PO SCH (08:05)
[2017-06-16] MEDS: ASPIRIN 81 MG TAB.CHEW PO SCH (08:05)
[2017-06-16] MEDS: LACTOBACILLUS RHAMNOSUS GG 1 CAPSULE. PO SCH ×2 (08:05→20:19)
[2017-06-16] MEDS: busPIRone 10 MG TABLET. PO SCH ×2 (08:05→17:12)
[2017-06-16] MEDS: busPIRone 15 MG TABLET. PO SCH (12:30)
[2017-06-16] MEDS: LORazepam 0.5 MG TABLET PO SCH (12:30)
[2017-06-16 16:16] VITALS: BP 122/85
[2017-06-16] MEDS: MIRTAZAPINE 15 MG TABLET PO SCH (20:19)
[2017-06-16] MEDS: DIVALPROEX 125 MG CAP.SPRINK PO SCH (20:19)
[2017-06-16] MEDS ORDERED: PHENYTOIN SODIUM EXTENDED 100 MG CAPSULE PO SCH (21:00)
--- NOTE | 2017-06-16 21:40 | PN ---
DATE: 06/15/2017 PSYCHIATRIC PROGRESS NOTE This is a late entry 06/15/2017, covers elements not covered in my initial note 06/15/2017. SUBJECTIVE: I met with the patient the evening of 06/15/2017. The patient had a difficult day, has had some trouble swallowing. Valproic acid level is in the 30s, anxious in the morning, received Ativan. REVIEW OF SYSTEMS: Ambulation impaired. No CV, , pulmonary, eye, ENT system symptoms on review. MENTAL STATUS EXAM: Oriented to herself. Insight, judgment, recent and remote memory, attention, concentration, fund of knowledge poor, consistent with her diagnoses mentioned in my initial note. IMPRESSION: Major neurocognitive disorder, Alzheimer, vascular with depression, delusion, behavioral disturbance. Rest unchanged. PLAN: Continue current psychotropics, but if her gait is affected we may have to reduce the Depakote or stop it. Change the Dilantin to the entire dosage at night, but we will wait another day before deciding. NAKIA KO MD DR: LUCRECIA/luz JOB#: [id number] / [id number]
--- NOTE | 2017-06-16 22:08 | PDOC ---
Exam Note: Dane Note: Please also refer to the separate dictated note~for this date of service dictated separately.~Patient seen individually. Discussed the patient with Nursing staff reviewed the chart.~Reviewed interim history and current functioning. Reviewed vital signs,~Labs/ Radiology~and current medications noted below. Continue current treatment with the changes noted in the dictated addendum note Assessment: Vital Signs: Vital Signs Date Time Temp Pulse Resp B/P (MAP) Pulse Ox O2 Delivery O2 Flow Rate FiO2 06/16/17 16:16 97.5 94 16 122/85 (97) 92 06/11/17 16:09 Room Air I&O Intake and Output 06/16/17 07:00 Intake Total 540 ml Balance 540 ml Intake Oral 540 ml # Voids 2 # Bowel Movements 2 Current Medications: Meds: Current Medications Diphtheria/ Tetanus/Acell Pertussis (Boostrix) 0.5 ml ONCE ONCE VAX IM Last administered on 05/01/17at 22:36; Start 05/01/17 at 19:15; Stop 05/01/17 at 19:16 ; Status DC Lorazepam (Ativan) 2 mg 1X ONCE IM Last administered on 05/01/17at 19:45; Start 05/01/17 at 19:45; Stop 05/01/17 at 19:46; Status DC Diphenhydramine HCl (Benadryl) 50 mg 1X ONCE IM Last administered on at 19:45; Start 05/01/17 at 19:45; Stop 05/01/17 at 19:46; Status DC Diphenhydramine HCl (Benadryl) 50 mg STK-MED ONCE .ROUTE ; Start 05/01/17 at 19: 36; Stop 05/01/17 at 19:37; Status DC Lorazepam (Ativan) 1 mg STK-MED ONCE .ROUTE ; Start 05/01/17 at 19:38; Stop at 19:39; Status DC Midazolam HCl (Versed) 2 mg 1X ONCE IV ; Start 05/01/17 at 20:30; Stop at 20:31; Status DC Midazolam HCl (Versed) 5 mg STK-MED ONCE .ROUTE ; Start 05/01/17 at 20:25; Stop 05/01/17 at 20:26; Status DC Midazolam HCl (Versed) 5 mg 1X ONCE NS Last administered on 05/01/17at 20:40; Start 05/01/17 at 21:00; Stop 05/01/17 at 21:01; Status DC Ceftriaxone Sodium (Rocephin Im) 1 gm 1X ONCE IM Last administered on at 22:36; Start 05/01/17 at 21:15; Stop 05/01/17 at 21:16; Status DC Enoxaparin Sodium (Lovenox 60mg Syringe) 50 mg 1X ONCE SQ ; Start 05/01/17 at 21:45; Stop 05/01/17 at 21:45; Status DC Enoxaparin Sodium (Lovenox) 55 mg BID SQ ; Start 05/02/17 at 09:00; Stop at 09:00; Status DC Enoxaparin Sodium (Lovenox 60mg Syringe) 55 mg 1X ONCE SQ Last administered on 05/01/17at 22:35; Start 05/01/17 at 21:45; Stop 05/01/17 at 21:46; Status DC Iohexol (Omnipaque 300 Mg/ml) 75 ml 1X ONCE IV Last administered on 05/01/17at 22:11; Start 05/01/17 at 22:00; Stop 05/01/17 at 22:01; Status DC Midazolam HCl (Versed) 5 mg 1X ONCE IV ; Start 05/01/17 at 22:15; Stop at 22:18; Status DC Midazolam HCl (Versed) 1 mg 1X ONCE IV Last administered on 05/01/17at 22:30; Start 05/01/17 at 23:00; Stop 05/01/17 at 23:02; Status DC Cephalexin HCl (Keflex) 500 mg TID PO Last administered on 05/03/17at 20:27; Start 05/02/17 at 09:00; Stop 05/03/17 at 22:41; Status DC Alprazolam (Xanax) 0.25 mg QID PO Last administered on 05/02/17at 17:32; Start 05/02/17 at 09:00; Stop 05/02/17 at 19:27; Status DC Divalproex Sodium (Depakote Sprinkles) 125 mg [id number] PO Last administered on 05/11at 14:05; Start 05/02/17 at 09:00; Stop 05/11/17 at 18:42; Status DC Divalproex Sodium (Depakote Sprinkles) 500 mg QHS PO Last administered on at 19:41; Start 05/02/17 at 21:00; Stop 05/07/17 at 18:37; Status DC Lorazepam (Ativan) 0.5 mg PRN Q4HRS PRN PO ANXIETY / AGITATION Last administered on 06/15/17at 12:00; Start 05/02/17 at 01:00 Lorazepam (Ativan Intensol) 0.5 mg PRN Q4HRS PRN PO ANXIETY / AGITATION Last administered on 06/13/17at 01:51; Start 05/02/17 at 01:00 Olanzapine (ZyPREXA ZYDIS) 5 mg QHS PO Last administered on 05/07/17at 20:07; Start 05/02/17 at 21:00; Stop 05/08/17 at 19:10; Status DC Sertraline HCl (Zoloft) 100 mg DAILY PO Last administered on 06/16/17at 08:05; Start 05/02/17 at 09:00 Levofloxacin (Levaquin) 500 mg DAILY06 PO Last administered on 05/02/17at 08:53 ; Start 05/02/17 at 07:30; Stop 05/02/17 at 10:36; Status DC Lactobacillus Rhamnosus (Culturelle) 1 cap BID PO Last administered on at 20:19; Start 05/02/17 at 09:00 Levofloxacin (Levaquin) 250 mg DAILY06 PO Last administered on 05/06/17at 07:45 ; Start 05/03/17 at 06:00; Stop 05/06/17 at 18:15; Status DC Alprazolam (Xanax) 0.25 mg TID PO Last administered on 05/06/17at 14:25; Start 05/02/17 at 21:00; Stop 05/06/17 at 20:59; Status DC Alprazolam (Xanax) 0.25 mg BID PO Last administered on 05/09/17at 19:50; Start at 21:00; Stop 05/10/17 at 08:59; Status DC Alprazolam (Xanax) 0.25 mg DAILY PO Last administered on 05/13/17 08:21; Start 05/10/17 at 09:00; Stop 05/14/17 at 08:59; Status DC Mirtazapine (Remeron) 7.5 mg QHS PO Last administered on 05/02/17 19:59; Start 05/02/17 at 21:00; Stop 05/03/17 at 19:31; Status DC Acetaminophen (Tylenol) 650 mg PRN Q6HRS PRN PO PAIN; Start 05/02/17 at 19:30 Aspirin (Children'S Aspirin) 81 mg DAILY PO Last administered on 06/16/17at 08:05 ; Start 05/03/17 at 09:00 Cyanocobalamin (Vitamin B-12) 250 mcg DAILY PO Last administered on 06/16/17at 08 :04; Start 05/03/17 at 09:00 Al Hydroxide/Mg Hydroxide (Mylanta Plus Xs) 15 ml PRN AFTMEALHC PRN PO DYSPEPSIA; Start 05/02/17 at 19:30 Multi-Ingredient Ointment (Analgesic [place]) 1 beck PRN QID PRN TP MUSCLE PAIN; Start 05/02/17 at 19:30 Phenytoin Sodium (Dilantin) 100 mg BID PO Last administered on 06/16/17at 08:05; Start 05/02/17 at 21:00; Stop 06/16/17 at 18:20; Status DC Senna/Docusate Sodium (Senna Plus) 1 tab BID PO Last administered on 06/16/17at 20:20; Start 05/02/17 at 21:00 Magnesium Hydroxide (Milk Of Magnesia) 2,400 mg PRN QHS PRN PO CONSTIPATION Last administered on 05/20/17at 11:56; Start 05/02/17 at 19:45 Potassium Chloride (Klor-Con) 20 meq DAILYWBKFT PO Last administered on at 08:05; Start 05/03/17 at 08:00 Neomycin/ Polymyxin/ Bacitracin (Triple Antibiotic Ointment) 1 pkt BID TP Last administered on 05/08/17at 08:51; Start 05/03/17 at 21:00; Stop 05/08/17 at 20:59; Status DC Mirtazapine (Remeron) 15 mg QHS PO Last administered on 06/16/17 20:19; Start 05/03/17 at 21:00 Trazodone HCl (Desyrel) 50 mg PRN QHS PRN PO SLEEP Last administered on at 01:56; Start 05/03/17 at 19:30; Stop 05/16/17 at 18:59; Status DC Alprazolam (Xanax) 0.25 mg 1X ONCE PO Last administered on 05/05/17at 09:36; Start 05/05/17 at 10:00; Stop 05/05/17 at 10:01; Status DC Buspirone HCl (Buspar) 5 mg TID@0900,1300,1700 PO Last administered on at 16:43; Start 05/06/17 at 09:00; Stop 05/06/17 at 18:23; Status DC Buspirone HCl (Buspar) 5 mg BID@1300,1700 PO Last administered on 05/09/17 14: 08; Start 05/07/17 at 13:00; Stop 05/09/17 at 18:34; Status DC Buspirone HCl (Buspar) 10 mg DAILY PO Last administered on 05/08/17at 08:49; Start 05/07/17 at 09:00; Stop 05/08/17 at 19:10; Status DC Divalproex Sodium (Depakote Sprinkles) 750 mg QHS PO Last administered on 20:19; Start 05/07/17 at 21:00 Olanzapine (ZyPREXA ZYDIS) 2.5 mg QHS PO Last administered on 05/09/17 19:48; Start 05/08/17 at 21:00; Stop 05/09/17 at 21:00; Status DC Divalproex Sodium (Depakote Sprinkles) 250 mg [id number] PO Last administered on at 08:11; Start 05/12/17 at 09:00; Stop 06/05/17 at 11:11; Status DC Buspirone HCl (Buspar) 5 mg BID@0900,1300 PO Last administered on 05/18/17at 13: 00; Start 05/15/17 at 13:00; Stop 05/18/17 at 15:50; Status DC Trazodone HCl (Desyrel) 50 mg PRN QHS PRN PO INSOMNIA, MAY REPEAT X1 Last administered on 06/15/17at 19:43; Start 05/16/17 at 19:00 Buspirone HCl (Buspar) 5 mg TID PO Last administered on 05/19/17at 13:50; Start 05/18/17 at 21:00; Stop 05/19/17 at 18:46; Status DC Buspirone HCl (Buspar) 5 mg [id number] PO Last administered on 05/21/17at 12:43; Start 05/19/17 at 21:00; Stop 05/21/17 at 14:16; Status DC Buspirone HCl (Buspar) 5 mg BID@0900,1700 PO Last administered on 05/24/17at 07: 52; Start 05/21/17 at 17:00; Stop 05/24/17 at 16:26; Status DC Buspirone HCl (Buspar) 10 mg DAILY@1300 PO Last administered on 05/24/17at 13:00 ; Start 05/22/17 at 13:00; Stop 05/24/17 at 16:26; Status DC Buspirone HCl (Buspar) 10 mg DAILY@0900,1300,1700 PO Last administered on at 17:20; Start 05/24/17 at 17:00; Stop 05/27/17 at 17:51; Status DC Buspirone HCl (Buspar) 10 mg BID@1300,1700 PO Last administered on 06/01/17at 17 :27; Start 05/28/17 at 13:00; Stop 06/02/17 at 13:00; Status DC Buspirone HCl (Buspar) 15 mg DAILY PO Last administered on 06/01/17at 08:44; Start 05/28/17 at 09:00; Stop 06/01/17 at 21:57; Status DC Lorazepam (Ativan) 0.5 mg DAILYWLUN PO Last administered on 06/16/17at 12:30; Start 06/01/17 at 12:00 Buspirone HCl (Buspar) 15 mg BID@0900,1300 PO Last administered on 06/05/17at 08 :11; Start 06/02/17 at 09:00; Stop 06/05/17 at 11:11; Status DC Buspirone HCl (Buspar) 10 mg DAILY@1700 PO Last administered on 06/04/17at 16:56 ; Start 06/02/17 at 17:00; Stop 06/05/17 at 11:11; Status DC Buspirone HCl (Buspar) 15 mg TID@0900,1300,1700 PO Last administered on 17:09; Start 06/05/17 at 13:00; Stop 06/12/17 at 17:24; Status DC Divalproex Sodium (Depakote Sprinkles) 375 mg [id number] PO Last administered on at 14:20; Start 06/05/17 at 14:00; Stop 06/05/17 at 18:30; Status DC Divalproex Sodium (Depakote Sprinkles) 250 mg [id number] PO Last administered on 06/09at 12:39; Start 06/06/17 at 09:00; Stop 06/09/17 at 18:42; Status DC Divalproex Sodium (Depakote Sprinkles) 125 mg [id number] PO Last administered on 06/15at 13:27; Start 06/10/17 at 09:00; Stop 06/16/17 at 07:59; Status DC Buspirone HCl (Buspar) 15 mg 1300 PO Last administered on 06/16/17 12:30; Start 06/13/17 at 13:00 Buspirone HCl (Buspar) 20 mg BID@0900,1700 PO Last administered on 06/16/17at 17: 12; Start 06/13/17 at 09:00 Phenytoin Sodium (Dilantin) 200 mg QHS PO Last administered on 06/16/17 20:21; Start 06/16/17 at 21:00 Active Scripts Active Reported Klor-Con (Potassium Chloride) 20 Meq Packet 20 Meq PO DAILY Xanax (Alprazolam) 0.25 Mg Tablet 0.25 Mg PO QID Zoloft (Sertraline Hcl) 100 Mg Tablet 100 Mg PO DAILY Lorazepam Intensol (Lorazepam) 2 Mg/1 Ml Oral.conc 0.5 Mg PO PRN Q4HRS PRN Senna S Tablet (Sennosides/Docusate Sodium) 1 Each Tablet 1 Tab PO BID Depakote Sprinkle (Divalproex Sodium) 125 Mg Cap.sprink 500 Mg PO QHS Depakote Sprinkle (Divalproex Sodium) 125 Mg Cap.sprink 125 Mg PO BID92 Tylenol (Acetaminophen) 325 Mg Tablet 650 Mg PO PRN Q6HRS PRN Olanzapine Odt (Olanzapine) 5 Mg Tab.rapdis 5 Mg PO QHS Analgesic [place] (Methyl Salicylate/Menthol) 28 Gm Oint...g. 1 Beck TP PRN QID PRN Maalox Maximum Strength Susp (Mag Hydrox/Al Hydrox/Simeth) 355 Ml Oral.susp 15 Ml PO PRN AFTMEALHC PRN Milk Of Magnesia (Magnesium Hydroxide) 2,400 Mg/10 Ml Oral.susp 2,400 Mg PO PRN QHS PRN Vitamin B-12 (Cyanocobalamin (Vitamin B-12)) 1,000 Mcg Tablet 250 Mcg PO DAILY Lorazepam 0.5 Mg Tablet 0.5 Mg PO PRN Q4HRS PRN Dilantin (Phenytoin Sodium Extended) 100 Mg Capsule 100 Mg PO BID Aspirin 81 Mg Tab.chew 81 Mg PO DAILY I have reviewed the current psychotropics carefully including drug interactions. Risk benefit ratio favors no change other than as noted in my dictated progress note. Diagnosis: Problems: (1) Breakthrough seizure (2) Dementia with behavioral disturbance (3) Anxiety disorder (4) Dementia in Alzheimer's disease with delusions (5) Dementia in Alzheimer's disease with depression (6) Dementia, vascular, with delusions (7) Dementia, vascular, with depression (8) Impulse control disorder NAKIA KO MD Jun 16, 2017 22:08
[2017-06-16] MEDS ORDERED: LACT1CAP21 PO (22:57)
[2017-06-16] MEDS ORDERED: LORA0.5T PO (23:00)
[2017-06-16] MEDS ORDERED: MIRT15TA3 PO (23:01)
[2017-06-16] MEDS ORDERED: BUSP15TA PO (23:04)
[2017-06-16] MEDS ORDERED: BUSP10TA PO (23:04)
[2017-06-16] MEDS ORDERED: TRAZ50TA15 PO (23:06)
[2017-06-16] MEDS: traZODone 50 MG TABLET. PO PRN (23:22)
[2017-06-17] MEDS: traZODone 50 MG TABLET. PO PRN (00:16)
[2017-06-17] MEDS: LORazepam 0.5 MG TABLET PO PRN (04:50)
[2017-06-17 06:08] VITALS: BP 139/68
[2017-06-17] MEDS: ASPIRIN 81 MG TAB.CHEW PO SCH (08:29)
[2017-06-17] MEDS: CYANOCOBALAMIN (VITAMIN B-12) 250 MCG TABLET PO SCH (08:30)
[2017-06-17] MEDS: busPIRone 10 MG TABLET. PO SCH (08:30)
[2017-06-17] MEDS: SENNOSIDES/DOCUSATE 8.6/50MG TABLET. PO SCH (08:30)
[2017-06-17] MEDS: POTASSIUM CHLORIDE 20 MEQ TABLET.ER. PO SCH (08:30)
[2017-06-17] MEDS: SERTRALINE 100 MG TABLET. PO SCH (08:30)
[2017-06-17] MEDS: LACTOBACILLUS RHAMNOSUS GG 1 CAPSULE. PO SCH (08:30)
[2017-06-17] MEDS: busPIRone 15 MG TABLET. PO SCH (12:43)
[2017-06-17] MEDS: LORazepam 0.5 MG TABLET PO SCH (12:43)
--- NOTE | 2017-06-17 18:23 | PDOC ---
Exam Note: Dane Note: Please also refer to the separate dictated note~for this date of service dictated separately.~Patient seen individually. Discussed the patient with Nursing staff reviewed the chart.~Reviewed interim history and current functioning. Reviewed vital signs,~Labs/ Radiology~and current medications noted below. Continue current treatment with the changes noted in the dictated addendum note Assessment: Vital Signs: Vital Signs Date Time Temp Pulse Resp B/P (MAP) Pulse Ox O2 Delivery O2 Flow Rate FiO2 06/17/17 06:08 97.7 78 22 139/68 (91) 99 06/11/17 16:09 Room Air I&O Intake and Output 06/17/17 07:00 Intake Total 840 ml Balance 840 ml Intake Oral 840 ml # Voids 1 Current Medications: Meds: Current Medications Diphtheria/ Tetanus/Acell Pertussis (Boostrix) 0.5 ml ONCE ONCE VAX IM Last administered on 05/01/17at 22:36; Start 05/01/17 at 19:15; Stop 05/01/17 at 19:16 ; Status DC Lorazepam (Ativan) 2 mg 1X ONCE IM Last administered on 05/01/17at 19:45; Start 05/01/17 at 19:45; Stop 05/01/17 at 19:46; Status DC Diphenhydramine HCl (Benadryl) 50 mg 1X ONCE IM Last administered on at 19:45; Start 05/01/17 at 19:45; Stop 05/01/17 at 19:46; Status DC Diphenhydramine HCl (Benadryl) 50 mg STK-MED ONCE .ROUTE ; Start 05/01/17 at 19: 36; Stop 05/01/17 at 19:37; Status DC Lorazepam (Ativan) 1 mg STK-MED ONCE .ROUTE ; Start 05/01/17 at 19:38; Stop at 19:39; Status DC Midazolam HCl (Versed) 2 mg 1X ONCE IV ; Start 05/01/17 at 20:30; Stop at 20:31; Status DC Midazolam HCl (Versed) 5 mg STK-MED ONCE .ROUTE ; Start 05/01/17 at 20:25; Stop 05/01/17 at 20:26; Status DC Midazolam HCl (Versed) 5 mg 1X ONCE NS Last administered on 05/01/17at 20:40; Start 05/01/17 at 21:00; Stop 05/01/17 at 21:01; Status DC Ceftriaxone Sodium (Rocephin Im) 1 gm 1X ONCE IM Last administered on at 22:36; Start 05/01/17 at 21:15; Stop 05/01/17 at 21:16; Status DC Enoxaparin Sodium (Lovenox 60mg Syringe) 50 mg 1X ONCE SQ ; Start 05/01/17 at 21:45; Stop 05/01/17 at 21:45; Status DC Enoxaparin Sodium (Lovenox) 55 mg BID SQ ; Start 05/02/17 at 09:00; Stop at 09:00; Status DC Enoxaparin Sodium (Lovenox 60mg Syringe) 55 mg 1X ONCE SQ Last administered on 05/01/17at 22:35; Start 05/01/17 at 21:45; Stop 05/01/17 at 21:46; Status DC Iohexol (Omnipaque 300 Mg/ml) 75 ml 1X ONCE IV Last administered on 05/01/17at 22:11; Start 05/01/17 at 22:00; Stop 05/01/17 at 22:01; Status DC Midazolam HCl (Versed) 5 mg 1X ONCE IV ; Start 05/01/17 at 22:15; Stop at 22:18; Status DC Midazolam HCl (Versed) 1 mg 1X ONCE IV Last administered on 05/01/17at 22:30; Start 05/01/17 at 23:00; Stop 05/01/17 at 23:02; Status DC Cephalexin HCl (Keflex) 500 mg TID PO Last administered on 05/03/17at 20:27; Start 05/02/17 at 09:00; Stop 05/03/17 at 22:41; Status DC Alprazolam (Xanax) 0.25 mg QID PO Last administered on 05/02/17at 17:32; Start 05/02/17 at 09:00; Stop 05/02/17 at 19:27; Status DC Divalproex Sodium (Depakote Sprinkles) 125 mg [id number] PO Last administered on 05/11at 14:05; Start 05/02/17 at 09:00; Stop 05/11/17 at 18:42; Status DC Divalproex Sodium (Depakote Sprinkles) 500 mg QHS PO Last administered on at 19:41; Start 05/02/17 at 21:00; Stop 05/07/17 at 18:37; Status DC Lorazepam (Ativan) 0.5 mg PRN Q4HRS PRN PO ANXIETY / AGITATION Last administered on 06/17/17at 04:50; Start 05/02/17 at 01:00; Stop 06/17/17 at 15:19 ; Status DC Lorazepam (Ativan Intensol) 0.5 mg PRN Q4HRS PRN PO ANXIETY / AGITATION Last administered on 06/13/17at 01:51; Start 05/02/17 at 01:00; Stop 06/17/17 at 15:19 ; Status DC Olanzapine (ZyPREXA ZYDIS) 5 mg QHS PO Last administered on 05/07/17at 20:07; Start 05/02/17 at 21:00; Stop 05/08/17 at 19:10; Status DC Sertraline HCl (Zoloft) 100 mg DAILY PO Last administered on 06/17/17at 08:30; Start 05/02/17 at 09:00; Stop 06/17/17 at 15:19; Status DC Levofloxacin (Levaquin) 500 mg DAILY06 PO Last administered on 05/02/17at 08:53 ; Start 05/02/17 at 07:30; Stop 05/02/17 at 10:36; Status DC Lactobacillus Rhamnosus (Culturelle) 1 cap BID PO Last administered on at 08:30; Start 05/02/17 at 09:00; Stop 06/17/17 at 15:19; Status DC Levofloxacin (Levaquin) 250 mg DAILY06 PO Last administered on 05/06/17at 07:45 ; Start 05/03/17 at 06:00; Stop 05/06/17 at 18:15; Status DC Alprazolam (Xanax) 0.25 mg TID PO Last administered on 05/06/17at 14:25; Start 05/02/17 at 21:00; Stop 05/06/17 at 20:59; Status DC Alprazolam (Xanax) 0.25 mg BID PO Last administered on 05/09/17at 19:50; Start at 21:00; Stop 05/10/17 at 08:59; Status DC Alprazolam (Xanax) 0.25 mg DAILY PO Last administered on 05/13/17at 08:21; Start 05/10/17 at 09:00; Stop 05/14/17 at 08:59; Status DC Mirtazapine (Remeron) 7.5 mg QHS PO Last administered on 05/02/17at 19:59; Start 05/02/17 at 21:00; Stop 05/03/17 at 19:31; Status DC Acetaminophen (Tylenol) 650 mg PRN Q6HRS PRN PO PAIN; Start 05/02/17 at 19:30; Stop 06/17/17 at 15:19; Status DC Aspirin (Children'S Aspirin) 81 mg DAILY PO Last administered on 06/17/17at 08: 29; Start 05/03/17 at 09:00; Stop 06/17/17 at 15:19; Status DC Cyanocobalamin (Vitamin B-12) 250 mcg DAILY PO Last administered on 06/17/17at 08:30; Start 05/03/17 at 09:00; Stop 06/17/17 at 15:19; Status DC Al Hydroxide/Mg Hydroxide (Mylanta Plus Xs) 15 ml PRN AFTMEALHC PRN PO DYSPEPSIA; Start 05/02/17 at 19:30; Stop 06/17/17 at 15:19; Status DC Multi-Ingredient Ointment (Analgesic [place]) 1 beck PRN QID PRN TP MUSCLE PAIN; Start 05/02/17 at 19:30; Stop 06/17/17 at 15:19; Status DC Phenytoin Sodium (Dilantin) 100 mg BID PO Last administered on 06/16/17at 08:05; Start 05/02/17 at 21:00; Stop 06/16/17 at 18:20; Status DC Senna/Docusate Sodium (Senna Plus) 1 tab BID PO Last administered on 06/17/17at 08:30; Start 05/02/17 at 21:00; Stop 06/17/17 at 15:19; Status DC Magnesium Hydroxide (Milk Of Magnesia) 2,400 mg PRN QHS PRN PO CONSTIPATION Last administered on 05/20/17at 11:56; Start 05/02/17 at 19:45; Stop 06/17/17 at 15:19; Status DC Potassium Chloride (Klor-Con) 20 meq DAILYWBKFT PO Last administered on at 08:30; Start 05/03/17 at 08:00; Stop 06/17/17 at 15:19; Status DC Neomycin/ Polymyxin/ Bacitracin (Triple Antibiotic Ointment) 1 pkt BID TP Last administered on 05/08/17at 08:51; Start 05/03/17 at 21:00; Stop 05/08/17 at 20:59; Status DC Mirtazapine (Remeron) 15 mg QHS PO Last administered on 06/16/17at 20:19; Start 05/03/17 at 21:00; Stop 06/17/17 at 15:19; Status DC Trazodone HCl (Desyrel) 50 mg PRN QHS PRN PO SLEEP Last administered on at 01:56; Start 05/03/17 at 19:30; Stop 05/16/17 at 18:59; Status DC Alprazolam (Xanax) 0.25 mg 1X ONCE PO Last administered on 05/05/17at 09:36; Start 05/05/17 at 10:00; Stop 05/05/17 at 10:01; Status DC Buspirone HCl (Buspar) 5 mg TID@0900,1300,1700 PO Last administered on at 16:43; Start 05/06/17 at 09:00; Stop 05/06/17 at 18:23; Status DC Buspirone HCl (Buspar) 5 mg BID@1300,1700 PO Last administered on 05/09/17at 14: 08; Start 05/07/17 at 13:00; Stop 05/09/17 at 18:34; Status DC Buspirone HCl (Buspar) 10 mg DAILY PO Last administered on 05/08/17at 08:49; Start 05/07/17 at 09:00; Stop 05/08/17 at 19:10; Status DC Divalproex Sodium (Depakote Sprinkles) 750 mg QHS PO Last administered on at 20:19; Start 05/07/17 at 21:00; Stop 06/17/17 at 15:19; Status DC Olanzapine (ZyPREXA ZYDIS) 2.5 mg QHS PO Last administered on 05/09/17at 19:48; Start 05/08/17 at 21:00; Stop 05/09/17 at 21:00; Status DC Divalproex Sodium (Depakote Sprinkles) 250 mg [id number] PO Last administered on at 08:11; Start 05/12/17 at 09:00; Stop 06/05/17 at 11:11; Status DC Buspirone HCl (Buspar) 5 mg BID@0900,1300 PO Last administered on 05/18/17at 13: 00; Start 05/15/17 at 13:00; Stop 05/18/17 at 15:50; Status DC Trazodone HCl (Desyrel) 50 mg PRN QHS PRN PO INSOMNIA, MAY REPEAT X1 Last administered on 06/17/17at 00:16; Start 05/16/17 at 19:00; Stop 06/17/17 at 15:19 ; Status DC Buspirone HCl (Buspar) 5 mg TID PO Last administered on 05/19/17at 13:50; Start 05/18/17 at 21:00; Stop 05/19/17 at 18:46; Status DC Buspirone HCl (Buspar) 5 mg [id number] PO Last administered on 05/21/17at 12:43; Start 05/19/17 at 21:00; Stop 05/21/17 at 14:16; Status DC Buspirone HCl (Buspar) 5 mg BID@0900,1700 PO Last administered on 05/24/17at 07: 52; Start 05/21/17 at 17:00; Stop 05/24/17 at 16:26; Status DC Buspirone HCl (Buspar) 10 mg DAILY@1300 PO Last administered on 05/24/17at 13:00 ; Start 05/22/17 at 13:00; Stop 05/24/17 at 16:26; Status DC Buspirone HCl (Buspar) 10 mg DAILY@0900,1300,1700 PO Last administered on 17:20; Start 05/24/17 at 17:00; Stop 05/27/17 at 17:51; Status DC Buspirone HCl (Buspar) 10 mg BID@1300,1700 PO Last administered on 06/01/17at 17 :27; Start 05/28/17 at 13:00; Stop 06/02/17 at 13:00; Status DC Buspirone HCl (Buspar) 15 mg DAILY PO Last administered on 06/01/17at 08:44; Start 05/28/17 at 09:00; Stop 06/01/17 at 21:57; Status DC Lorazepam (Ativan) 0.5 mg DAILYWLUN PO Last administered on 06/17/17at 12:43; Start 06/01/17 at 12:00; Stop 06/17/17 at 15:19; Status DC Buspirone HCl (Buspar) 15 mg BID@0900,1300 PO Last administered on 06/05/17at 08 :11; Start 06/02/17 at 09:00; Stop 06/05/17 at 11:11; Status DC Buspirone HCl (Buspar) 10 mg DAILY@1700 PO Last administered on 06/04/17at 16:56 ; Start 06/02/17 at 17:00; Stop 06/05/17 at 11:11; Status DC Buspirone HCl (Buspar) 15 mg TID@0900,1300,1700 PO Last administered on at 17:09; Start 06/05/17 at 13:00; Stop 06/12/17 at 17:24; Status DC Divalproex Sodium (Depakote Sprinkles) 375 mg [id number] PO Last administered on at 14:20; Start 06/05/17 at 14:00; Stop 06/05/17 at 18:30; Status DC Divalproex Sodium (Depakote Sprinkles) 250 mg [id number] PO Last administered on 06/09at 12:39; Start 06/06/17 at 09:00; Stop 06/09/17 at 18:42; Status DC Divalproex Sodium (Depakote Sprinkles) 125 mg [id number] PO Last administered on 06/15at 13:27; Start 06/10/17 at 09:00; Stop 06/16/17 at 07:59; Status DC Buspirone HCl (Buspar) 15 mg 1300 PO Last administered on 06/17/17at 12:43; Start 06/13/17 at 13:00; Stop 06/17/17 at 15:19; Status DC Buspirone HCl (Buspar) 20 mg BID@0900,1700 PO Last administered on 06/17/17at 08 :30; Start 06/13/17 at 09:00; Stop 06/17/17 at 15:19; Status DC Phenytoin Sodium (Dilantin) 200 mg QHS PO Last administered on 06/16/17at 20:21; Start 06/16/17 at 21:00; Stop 06/17/17 at 15:19; Status DC Active Scripts Active Reported Trazodone Hcl 50 Mg Tablet 50 Mg PO PRN QHS PRN Buspirone Hcl 10 Mg Tablet 20 Mg PO BID@0900,1700 Buspirone Hcl 15 Mg Tablet 15 Mg PO DAILY@1300 Mirtazapine 15 Mg Tablet 15 Mg PO QHS Lorazepam 0.5 Mg Tablet 0.5 Mg PO DAILYWLUN Culturelle (Lactobacillus Rhamnosus Gg) 1 Each Capsule 1 Cap PO BID Klor-Con (Potassium Chloride) 20 Meq Packet 20 Meq PO DAILYWBKFT Zoloft (Sertraline Hcl) 100 Mg Tablet 100 Mg PO DAILY Lorazepam Intensol (Lorazepam) 2 Mg/1 Ml Oral.conc 0.5 Mg PO PRN Q4HRS PRN Senna S Tablet (Sennosides/Docusate Sodium) 1 Each Tablet 1 Tab PO BID Depakote Sprinkle (Divalproex Sodium) 125 Mg Cap.sprink 750 Mg PO QHS Tylenol (Acetaminophen) 325 Mg Tablet 650 Mg PO PRN Q6HRS PRN Analgesic [place] (Methyl Salicylate/Menthol) 28 Gm Oint...g. 1 Beck TP PRN QID PRN Maalox Maximum Strength Susp (Mag Hydrox/Al Hydrox/Simeth) 355 Ml Oral.susp 15 Ml PO PRN AFTMEALHC PRN Milk Of Magnesia (Magnesium Hydroxide) 2,400 Mg/10 Ml Oral.susp 2,400 Mg PO PRN QHS PRN Vitamin B-12 (Cyanocobalamin (Vitamin B-12)) 1,000 Mcg Tablet 250 Mcg PO DAILY Dilantin (Phenytoin Sodium Extended) 100 Mg Capsule 100 Mg PO BID Aspirin 81 Mg Tab.chew 81 Mg PO DAILY I have reviewed the current psychotropics carefully including drug interactions. Risk benefit ratio favors no change other than as noted in my dictated progress note. Diagnosis: Problems: (1) Impulse control disorder (2) Dementia, vascular, with depression (3) Dementia, vascular, with delusions (4) Dementia in Alzheimer's disease with depression (5) Dementia in Alzheimer's disease with delusions (6) Anxiety disorder NAKIA KO MD Jun 17, 2017 18:23
--- NOTE | 2017-06-17 22:53 | PN ---
DATE: 06/16/2017 This late entry 06/16/2017 covers elements not covered in my initial note 06/16/2017. Met with the patient evening of 06/16/2017. SUBJECTIVE: The patient continues to have some unsteadiness of her gait, remains a little anxious. She is not aggressive nevertheless. Apparently, family has opted to have her on hospice care post-discharge. REVIEW OF SYSTEMS: No CV, , eye, ENT or pulmonary system symptoms on review. Reliability poor. MENTAL STATUS EXAM: Oriented to herself. Insight, judgment, recent and remote memory, attention, concentration, fund of knowledge poor, consistent with her diagnosis mentioned in my initial note. IMPRESSION: Major neurocognitive disorder, Alzheimer, vascular with depression, delusion, behavioral disturbance. Rest unchanged. PLAN: Continue psychotropics mentioned in my initial note. Possible transition to custodial on hospice care 06/17/2017. MAN Leandro KO MD DR: [email or web address] JOB#: [id number] / [id number]
--- NOTE | 2017-06-18 13:12 | DS ---
DATE OF DISCHARGE: 06/17/2017 DISCHARGE SUMMARY/PSYCHIATRIC PROGRESS NOTE This late entry of 06/17/2016, covers elements not covered in my initial note for 06/17/2017. REASON FOR ADMISSION: Please refer to the admission history for details. Briefly, the patient is an 87-year-old female, referred back to us from [facility] by her psychiatrist, Dr. Yandy Camacho and primary care physician on account of increasing agitation, banging on the doors and windows, increased anxiety, refusing medications, refusing cares, punching the other residents. The patient's behaviors were deemed dangerous, out of control at failed outpatient psychiatric interventions resulting in this referral. SIGNIFICANT FINDINGS AND CLINICAL COURSE: Following admission, the patient was seen daily individually by myself, followed medically per Dr. Narayanan/Dr Oneil. The patient is extremely agitated, labile, aggressive, disruptive in addition to being confused at admission. Multiple changes were made in her psychotropics. I did discuss with Dr. Camacho at the start of the patient's hospitalization and we agreed to discontinuation of her major psychotropics to see how she did before reinitiating these if needed. She was much worse once the Depakote and Seroquel was discontinued. Behaviors were more erratic, labile, psychotic in addition to her ongoing confusion. Psychotropics were gently reintroduced, adjusted, and then reduced further because of potential side effects and impairment of gait, and at the end of her stay, she seemed to be doing best on a combination of Remeron 15 mg at bedtime, Depakote sprinkles 750 at bedtime, Zoloft 100 mg a day, Ativan Intensol 0.5 mg q. 4 hours p.r.n. Dilantin was 100 mg b.i.d., level was therapeutic. BuSpar was adjusted to 20 mg in the morning at 0900, 15 mg at 1300, 20 mg at 1700; Ativan 0.5 mg at noon; trazodone 50 mg at bedtime p.r.n., may repeat x 1 for insomnia. Gait was somewhat unsteady. She was intermittently still labile, but improved. At this stage, it was felt from a general medical standpoint, she would be best moving to hospice care and the plan was the hospice to be initiated when she returns to the [facility] on 06/17/2017. CONDITION AT DISCHARGE: Improved somewhat from a psychiatric standpoint with respect to behaviors, but the confusion persisted. REVIEW OF SYSTEMS: Prior to discharge, 06/17/2017, no CV, , pulmonary, eye, ENT system symptoms on review. Reliability poor. MENTAL STATUS EXAM: Oriented to herself. Insight, judgment, recent and remote memory, attention, concentration, fund of knowledge poor, consistent with her diagnosis mentioned in my initial note. IMPRESSION: Major neurocognitive disorder, Alzheimer, vascular with depression, delusion, behavioral disturbance; anxiety disorder, unspecified; impulse control disorder, unspecified. PLAN: Continue psychotropics mentioned in my initial note. Outpatient psychiatric medical followup at the [facility]. Time for discharge day management greater than 30 minutes. MAN Leandro KO MD DR: [email or web address] JOB#: [id number] / [id number]
== END 2017-06-17 15:19 | disposition hospice, home (50) | DRG 56 ==
LOC: ER 18:44 → GEROPSY 05-02 00:04
PROVIDERS: ADMIT Psychiatry & Neurology Psychiatry; ATTEND Psychiatry & Neurology Psychiatry
DX: G30.9 Alzheimer's disease, unspecified (principal); G93.41 Metabolic encephalopathy; E87.0 Hyperosmolality and hypernatremia; F01.51 Vascular dementia, unspecified severity, with behavioral disturbance; R13.10 Dysphagia, unspecified; D64.9 Anemia, unspecified; C44.329 Squamous cell carcinoma of skin of other parts of face; F32.9 Major depressive disorder, single episode, unspecified; F02.81 Dementia in other diseases classified elsewhere, unspecified severity, with behavioral disturbance; J98.11 Atelectasis; N39.0 Urinary tract infection, site not specified; K21.9 Gastro-esophageal reflux disease without esophagitis; N18.3 Chronic kidney disease, stage 3 (moderate); Z51.5 Encounter for palliative care; Z66 Do not resuscitate; I12.9 Hypertensive chronic kidney disease with stage 1 through stage 4 chronic kidney disease, or unspecified chronic kidney disease; G40.909 Epilepsy, unspecified, not intractable, without status epilepticus; F41.9 Anxiety disorder, unspecified; F63.9 Impulse disorder, unspecified; G47.00 Insomnia, unspecified; S00.03XA Contusion of scalp, initial encounter; X58.XXXA Exposure to other specified factors, initial encounter; Y93.89 Activity, other specified; Y92.89 Other specified places as the place of occurrence of the external cause; Y99.8 Other external cause status; Z79.899 Other long term (current) drug therapy; Z91.81 History of falling; Z91.83 Wandering in diseases classified elsewhere
CPT/HCPCS: 36415; 70450; 70486; 71045; 71275; 72125; 73070; 80048; 80053; 80061; 80076; 80164; 80185; 80307; 81001; 82306; 82553; 82607; 83036; 83540; 83550; 83605; 83690; 83735; 83880; 84436; 84443; 84480; 84484; 85025; 85379; 85610; 85651; 85730; 86593; 87086; 87804; 90715; 93005; J0696; J1200; J1650; J2060; J2250; P9612; Q9967; 97116; 97530; 99285-25; G0479